=== PATIENT | female | born 1930 | race Caucasian/White ===

== ENCOUNTER 2016-07-20 06:49 | Inpatient (IN) | payer MEDICARE, BC ==
[2016-07-20] MEDS ORDERED: RX INFO: IV CONTRAST WAS GIVEN 1 EACH MISC MISCELLANE PRN (07:46)
--- NOTE | 2016-07-20 07:54 | ED ---
General Adult HPI - General Chief complaint: Altered Mental Status Stated complaint: altered mental status Time Seen by Provider: 07/20/16 07:00 Source: patient, family, RN notes reviewed Mode of arrival: ambulatory Limitations: no limitations - History of Present Illness Initial comments: This is an 85-year-old female who presents emergency Department with expressive aphasia. Family states that last spoke with her last night at 9:30 and she was fine however this morning when they spoke with her she was having difficulty finding the correct words to say it was not making any sense. Family also noted that she seemed to be having some difficulty walking she was a little off balance and it appeared that she was having some left-sided weakness. Patient denies headache however family states in the past she has had 2 occasions where she's had an intercranial bleed. Patient is unable to answer all questions because of expressive aphasia which difficult to get further history from her. According to family the patient was feeling fine yesterday and there was no complaints. There is no history of any recent upper respiratory infection no recent history of vomiting or diarrhea no recent history of any trauma. - Related Data Home Medications Medication Instructions Recorded Confirmed Pioglitazone HCl/Metformin HCl 1 tab PO DAILY 09/20/14 07/20/16 [Pioglitazone-Metformin 15-850] Simvastatin [Zocor] 20 mg PO HS 09/20/14 07/20/16 Bisoprolol Fumarate [Zebeta] 5 mg PO BID 08/13/15 07/20/16 Aspirin EC [Ecotrin Low Dose] 81 mg PO DAILY 07/20/16 07/20/16 Cholecalciferol [Vitamin D3] 1,000 unit PO DAILY 07/20/16 07/20/16 Cla 1 tab PO DAILY 07/20/16 07/20/16 Docusate [Colace] 100 mg PO DAILY PRN 07/20/16 07/20/16 Multivitamins, Thera [Multivitamin 1 tab PO DAILY 07/20/16 07/20/16 (formulary)] Allergies Allergy/AdvReac Type Severity Reaction Status Date / Time latex Allergy Rash/Hives Verified 07/20/16 07:52 Sulfa (Sulfonamide Allergy Unknown Verified 07/20/16 07:52 Antibiotics) Review of Systems ROS Statement: Those systems with pertinent positive or pertinent negative responses have been documented in the HPI. ROS Other: All systems not noted in ROS Statement are negative. Past Medical History Past Medical History: Coronary Artery Disease (CAD), Diabetes Mellitus, Hyperlipidemia, Hypertension, Myocardial Infarction ([place]) History of Any Multi-Drug Resistant Organisms: None Reported Past Surgical History: Hysterectomy Additional Past Surgical History / Comment(s): angioplasty Past Psychological History: No Psychological Hx Reported Smoking Status: Never smoker Past Alcohol Use History: None Reported Past Drug Use History: None Reported General Exam - General Exam Comments Initial Comments: GENERAL: Patient is well-developed and well-nourished. Patient is nontoxic and well- hydrated and is in no acute distress. ENT: Neck is soft and supple. No significant lymphadenopathy is noted. Oropharynx is clear. Moist mucous membranes. Neck has full range of motion without eliciting any pain. EYES: The sclera were anicteric and conjunctiva were pink and moist. Extraocular movements were intact and pupils were equal round and reactive to light. Eyelids were unremarkable. PULMONARY: Unlabored respirations. Good breath sounds bilaterally. No audible rales rhonchi or wheezing was noted. CARDIOVASCULAR: There is a regular rate and rhythm without any murmurs gallops or rubs. ABDOMEN: Soft and nontender with normal bowel sounds. No palpable organomegaly was noted. There is no palpable pulsatile mass. SKIN: Skin is clear with no lesions or rashes and otherwise unremarkable. NEUROLOGIC: Patient is alert and oriented 2 cranial nerves II through XII grossly intact motor and sensory grossly intact over the patient did have some left leg drift on examination. Patient cerebellar testing was normal bilaterally. Patient was having some expressive aphasia. Patient was able to speak clearly but was unable to find the correct words while speaking. MUSCULOSKELETAL: Patient's extremities showed no gross abnormalities. Patient has some left leg drift after a few seconds. LYMPHATICS: No significant lymphadenopathy is noted PSYCHIATRIC: Normal psychiatric evaluation. Normal interpersonal interactions appears functionally intact in deals appropriately with others. No signs of depression. Limitations: no limitations Course Vital Signs 07/20/16 07/20/16 07/20/16 06:51 07:10 07:17 Temperature 99.7 F H Pulse Rate 64 62 60 Respiratory 20 16 18 Rate Blood Pressure 142/60 172/70 156/70 O2 Sat by Pulse 94 L 94 L 94 L Oximetry 07/20/16 07/20/16 07/20/16 07:32 07:47 08:02 Temperature Pulse Rate 62 58 L 56 L Respiratory 18 Rate Blood Pressure 134/57 146/65 132/60 O2 Sat by Pulse 94 L 2 L 95 Oximetry 07/20/16 07/20/16 08:39 09:32 Temperature Pulse Rate 61 56 L Respiratory 16 16 Rate Blood Pressure 152/69 132/59 O2 Sat by Pulse 95 97 Oximetry Medical Decision Making - Medical Decision Making EKG shows a normal sinus rhythm at 62 bpm AR interval 172 QRS is 78 QT interval is 46 QTC is 412. EKG shows no ST segment elevation or depression. CT of the head and CTA of the head and neck showed no acute abnormalities. The neuro interventional is was contacted he wanted aspirin Plavix and Lipitor given. Patient will be admitted I spoke with Dr. Olson he agreed to admit the patient and they wrote admitting orders. - Lab Data Result diagrams: 07/20/16 07:09 07/20/16 07:09 Lab Results 07/20/16 07/20/16 07/20/16 Range/Units 07:09 07:09 07:09 WBC 8.8 (3.8-10.6) k/uL RBC 4.28 (3.80-5.40) m/uL Hgb 12.4 (11.4-16.0) gm/dL Hct 37.2 (34.0-46.0) % MCV 87.0 (80.0-100.0) fL MCH 29.1 (25.0-35.0) pg MCHC 33.4 (31.0-37.0) g/dL RDW 13.3 (11.5-15.5) % Plt Count 228 (150-450) k/uL Neutrophils % 83 % Lymphocytes % 13 % Monocytes % 3 % Eosinophils % 0 % Basophils % 0 % Neutrophils # 7.3 (1.3-7.7) k/uL Lymphocytes # 1.2 (1.0-4.8) k/uL Monocytes # 0.2 (0-1.0) k/uL Eosinophils # 0.0 (0-0.7) k/uL Basophils # 0.0 (0-0.2) k/uL PT (9.0-12.0) sec INR (<1.1) APTT (22.0-30.0) sec Sodium 137 (137-145) mmol/L Potassium 4.7 (3.5-5.1) mmol/L Chloride 100 (98-107) mmol/L Carbon Dioxide 25 (22-30) mmol/L Anion Gap 12 mmol/L BUN 26 H (7-17) mg/dL Creatinine 0.80 (0.52-1.04) mg/dL Est GFR (MDRD) Af Amer >60 (>60 ml/min/1.73 sqM) Est GFR (MDRD) Non-Af >60 (>60 ml/min/1.73 sqM) Glucose 201 H (74-99) mg/dL Calcium 9.1 (8.4-10.2) mg/dL Total Bilirubin 0.9 (0.2-1.3) mg/dL AST 18 (14-36) U/L ALT 20 (9-52) U/L Alkaline Phosphatase 58 (38-126) U/L Total Creatine Kinase 60 (30-135) U/L CK-MB (CK-2) 1.3 (0.0-2.4) ng/mL CK-MB (CK-2) Rel Index 2.2 Troponin I <0.012 (0.000-0.034) ng/mL Total Protein 7.0 (6.3-8.2) g/dL Albumin 4.1 (3.5-5.0) g/dL Urine Color Urine Appearance (Clear) Urine pH (5.0-8.0) Ur Specific [place] (1.001-1.035) Urine Protein (Negative) Urine Glucose (UA) (Negative) Urine Ketones (Negative) Urine Blood (Negative) Urine Nitrite (Negative) Urine Bilirubin (Negative) Urine Urobilinogen (<2.0) mg/dL Ur Leukocyte Esterase (Negative) 07/20/16 07/20/16 Range/Units 07:09 09:30 WBC (3.8-10.6) k/uL RBC (3.80-5.40) m/uL Hgb (11.4-16.0) gm/dL Hct (34.0-46.0) % MCV (80.0-100.0) fL MCH (25.0-35.0) pg MCHC (31.0-37.0) g/dL RDW (11.5-15.5) % Plt Count (150-450) k/uL Neutrophils % % Lymphocytes % % Monocytes % % Eosinophils % % Basophils % % Neutrophils # (1.3-7.7) k/uL Lymphocytes # (1.0-4.8) k/uL Monocytes # (0-1.0) k/uL Eosinophils # (0-0.7) k/uL Basophils # (0-0.2) k/uL PT 10.6 (9.0-12.0) sec INR 1.1 (<1.1) APTT 24.2 (22.0-30.0) sec Sodium (137-145) mmol/L Potassium (3.5-5.1) mmol/L Chloride (98-107) mmol/L Carbon Dioxide (22-30) mmol/L Anion Gap mmol/L BUN (7-17) mg/dL Creatinine (0.52-1.04) mg/dL Est GFR (MDRD) Af Amer (>60 ml/min/1.73 sqM) Est GFR (MDRD) Non-Af (>60 ml/min/1.73 sqM) Glucose (74-99) mg/dL Calcium (8.4-10.2) mg/dL Total Bilirubin (0.2-1.3) mg/dL AST (14-36) U/L ALT (9-52) U/L Alkaline Phosphatase (38-126) U/L Total Creatine Kinase (30-135) U/L CK-MB (CK-2) (0.0-2.4) ng/mL CK-MB (CK-2) Rel Index Troponin I (0.000-0.034) ng/mL Total Protein (6.3-8.2) g/dL Albumin (3.5-5.0) g/dL Urine Color Yellow Urine Appearance Clear (Clear) Urine pH 8.0 (5.0-8.0) Ur Specific [place] 1.041 H (1.001-1.035) Urine Protein Trace H (Negative) Urine Glucose (UA) Negative (Negative) Urine Ketones Negative (Negative) Urine Blood Negative (Negative) Urine Nitrite Negative (Negative) Urine Bilirubin Negative (Negative) Urine Urobilinogen <2.0 (<2.0) mg/dL Ur Leukocyte Esterase Negative (Negative) Disposition Clinical Impression: CVA (cerebral vascular accident) Disposition: ADMITTED IP TO THIS [facility] Referrals: Gregorio Rivera DO [Primary Care Provider] - 1-2 days Time of Disposition: 10:13
[2016-07-20 08:03] LABS: Basophils % (A) 0 %; CH 29.3; CHCM 33.8; Eosinophils % (A) 0 %; HCT 37.2 % (34.0-46.0); HDW 2.44; HGB 12.4 gm/dL (11.4-16.0); Luc # (Auto) 0.08; Luc % (Auto) 1; Lymphocytes # (A) 1.2 k/uL (1.0-4.8); Lymphocytes % (A) 13 %; MCH 29.1 pg (25.0-35.0); MCHC 33.4 g/dL (31.0-37.0); Mean Platelet Volume 7.4; Monocytes # (A) 0.2 k/uL (0-1.0); Monocytes % (A) 3 %; Neutrophils # (A) 7.3 k/uL (1.3-7.7); Neutrophils % (A) 83 %; RBC 4.28 m/uL (3.80-5.40); RDW 13.3 % (11.5-15.5); WBC 8.8 k/uL (3.8-10.6); WBC (Perox) 9.26
[2016-07-20 08:08] LABS: INR 1.1 (<1.1); Partial Thromboplastin Time 24.2 sec (22.0-30.0); Prothrombin Time 10.6 sec (9.0-12.0)
[2016-07-20 08:13] LABS: ALT 20 U/L (9-52); AST 18 U/L (14-36); Alkaline Phosphatase 58 U/L (38-126); Anion Gap 12 mmol/L; Blood Urea Nitrogen 26 mg/dL (7-17); Calcium 9.1 mg/dL (8.4-10.2); Carbon Dioxide 25 mmol/L (22-30); Chloride 100 mmol/L (98-107); Glucose 201 mg/dL (74-99); Non-African American GFR(MDRD) >60 (>60 ml/min/1.73 sqM); Potassium 4.7 mmol/L (3.5-5.1); Sodium 137 mmol/L (137-145); Total Bilirubin 0.9 mg/dL (0.2-1.3)
--- NOTE | 2016-07-20 08:26 | CT ---
EXAMINATION TYPE: CT brain wo con for TPA DATE OF EXAM: 07/20/2016 8:23 AM COMPARISON: 08/13/2015 HISTORY: Altered mental status CT DLP: 999.8 mGycm Automated exposure control for dose reduction was used. FINDINGS: There is no acute intracranial hemorrhage, mass effect, or midline shift identified. Moderate degener ative change noted. Periventricular low attenuation compatible with remote microvascular ischemia. Ca lvarium intact.. IMPRESSION: No acute intracranial hemorrhage, mass effect, or midline shift is seen.
[2016-07-20 08:32] LABS: Creatine Kinase 60 U/L (30-135)
[2016-07-20 08:44] LABS: Creatine Kinase MB 1.3 ng/mL (0.0-2.4); Troponin I <0.012 ng/mL (0.000-0.034)
--- NOTE | 2016-07-20 09:12 | XR ---
EXAMINATION TYPE: XR chest 2V DATE OF EXAM: 07/20/2016 8:54 AM COMPARISON: NONE TECHNIQUE: PA and lateral views submitted. HISTORY: Chest pain FINDINGS: The lungs are clear and there is no pneumothorax, pleural effusion, or focal pneumonia. Heart is en larged. Hypertrophic and degenerative change of the spine. No overt failure. Arthropathy of the shoul ders. IMPRESSION: 1. No acute process.
--- NOTE | 2016-07-20 09:32 | CT ---
EXAMINATION TYPE: CT angio head neck DATE OF EXAM: 07/20/2016 9:06 AM COMPARISON: NONE HISTORY: AMS CT DLP: 224.3 mGycm Automated exposure control for dose reduction was used. TECHNIQUE: Performed with IV Contrast, patient injected with 65 mL of Omnipaque 350. . FINDINGS: Hypertrophic and degenerative change of the spine noted. Severe degenerative disc disease involving t he mid and lower cervical spine. Facet arthropathy There is atherosclerotic change involving the aortic arch and origin of the great vessels. Mild ather osclerotic changes involving the common carotid artery on the left. Moderate changes involving both c arotid arteries greater on the right with suggestion of possible significant stenosis involving the p roximal right ICA. Intracranial vasculature demonstrates no sizable aneurysm vertebrobasilar and cerebral arteries appea r to be patent. Degenerative change and nonspecific white matter changes noted. IMPRESSION: 1. There appears to be significant atherosclerotic change and probable stenosis involving the proxima l ICA bilaterally greater on the right. 2. No sizable aneurysm or vascular malformation.
[2016-07-20 10:02] LABS: Appearance,Urine Clear (Clear); Bilirubin,Urine Negative (Negative); Glucose,Urine (UA) Negative (Negative); Ketones,Urine Negative (Negative); Leukocyte Esterase,Urine Negative (Negative); Nitrite,Urine Negative (Negative); Protein,Urine Trace (Negative); Specific Gravity,Urine 1.041 (1.001-1.035); UA Billing (MACRO vs. MICRO) CHEM; Urobilinogen,Urine <2.0 mg/dL (<2.0)
[2016-07-20] MEDS ORDERED: SODIUM CHLORIDE 0.9% 500 ML IV ONE (10:03)
[2016-07-20] MEDS ORDERED: ASPIRIN 325 MG TAB PO STA (10:11)
[2016-07-20] MEDS ORDERED: CLOPIDOGREL 75 MG TAB PO STA (10:12)
[2016-07-20] MEDS ORDERED: ATORVASTATIN 80 MG TAB PO STA (10:12)
--- NOTE | 2016-07-20 12:26 | US ---
EXAMINATION TYPE: US carotid duplex BILAT DATE OF EXAM: 07/20/2016 12:07 PM COMPARISON: CT angio today CLINICAL HISTORY: Stenosis. EC patient with headache last night. EXAM MEASUREMENTS: RIGHT: Peak Systolic Velocity (PSV) cm/sec ----- Right CCA: 36.6 ----- Right ICA: 174.3 ----- Right ECA: 122.6 ICA/CCA ratio: 4.8 RIGHT: End Diastole cm/sec ----- Right CCA: 0.0 ----- Right ICA: 35.1 ----- Right ECA: 0.0 LEFT: Peak Systolic Velocity (PSV) cm/sec ----- Left CCA: 47.0 ----- Left ICA: 88.6 ----- Left ECA: 98.2 ICA/CCA ratio: 1.9 LEFT: End Diastole cm/sec ----- Left CCA: 6.9 ----- Left ICA: 17.3 ----- Left ECA: 7.6 VERTEBRALS (direction of flow): Right Vertebral: Antegrade Left Vertebral: Antegrade Irregular and severe calcification noted at bilateral carotid bifurcation with abnormally elevated PS V in Right ICA. IMPRESSION: There is antegrade flow in the vertebral arteries. There is calcified plaque with estim ated stenosis of 70% in the right internal carotid artery. There is a 0-50% stenosis in the left internal carotid artery. Criteria for Assigning % of Stenosis / Diameter reduction (Estimation based on the indirect measurements of the internal carotid artery velocities (ICA PSV). 1. Normal (no stenosis)=ICA PSV < 125 cm/s: ratio < 2.0: ICA EDV<40 cm/s. 2. Less than 50% stenosis=ICA PSV < 125 cm/s: ratio < 2.0: ICA EDV<40 cm/s. 3. 50 to 69% stenosis=ICA PSV of 125 to 230 cm/s: ration 2.0 ? 4.0: ICA EDV 40-100 cm/s. 4. Greater than 70% stenosis to near occlusion= ICA PSV > 230 cm/s: ratio > 4.0: ICA EDV > 100 cm/s. 5. Near occlusion= ICA PSV velocities may be low or undetectable: variable ratio and ICA EDV. 6. Total occlusion=unable to detect flow.
[2016-07-20 12:46] LABS: Glucose,Whole Blood 206 mg/dL (75-99)
[2016-07-20] MEDS ORDERED: DOCUSATE 100 MG CAP PO PRN (14:07)
[2016-07-20] MEDS ORDERED: ACETAMINOPHEN TAB 500 MG TAB PO PRN (14:09)
[2016-07-20] MEDS ORDERED: ALPRAZolam 0.25 MG TAB PO PRN (14:09)
[2016-07-20 14:26] VITALS: BMI 27.4
--- NOTE | 2016-07-20 14:38 | P.CONS ---
History of Present Illness - Reason for Consult Consult date: 07/20/16 TIA - History of Present Illness This is a pleasant 85-year-old female being evaluated by the neurology service for TIA symptoms. She was brought to the [facility] emergency room by her family after they noticed some episodes of expressive aphasia. She was also seen to be a little bit off balance while walking. Her symptoms have resolved except for possibly being a little bit of off balance when she first stands. She gives a significant history of valvular heart disease for which she was offered surgery, but declined. She has known carotid stenosis which is been followed by her town administrator and primary care physician. A CT in the emergency room showed no acute intracranial abnormalities. There was evidence of remote microvascular ischemia. There was no hemorrhage or mass effect. CTA of the head and neck was done, as was a carotid Doppler. Her carotid Doppler showed severe calcifications of bilateral carotid bifurcations abnormally elevated PSV in the right internal carotid artery. Her CTA showed mild atherosclerotic changes in the common carotid artery on the left moderate changes involving both carotid arteries greater on the right with significant stenosis in the proximal right internal carotid artery. Again there was no appreciable aneurysm. Intracranial vasculature was patent. Laboratory evaluation was relatively normal. Time my exam she is resting comfortably in bed in no acute distress. Review of Systems All systems: negative Constitutional: Reports as per HPI Past Medical History Past Medical History: Coronary Artery Disease (CAD), Diabetes Mellitus, Hyperlipidemia, Hypertension, Myocardial Infarction ([place]) History of Any Multi-Drug Resistant Organisms: None Reported Past Surgical History: Hysterectomy Additional Past Surgical History / Comment(s): angioplasty Past Psychological History: No Psychological Hx Reported Smoking Status: Never smoker Past Alcohol Use History: None Reported Past Drug Use History: None Reported Medications and Allergies Home Medications Medication Instructions Recorded Confirmed Type Pioglitazone HCl/Metformin HCl 1 tab PO DAILY 09/20/14 07/20/16 History [Pioglitazone-Metformin 15-] Simvastatin [Zocor] 20 mg PO HS 09/20/14 07/20/16 History Bisoprolol Fumarate [Zebeta] 5 mg PO BID 08/13/15 07/20/16 History Aspirin EC [Ecotrin Low Dose] 81 mg PO DAILY 07/20/16 07/20/16 History Cholecalciferol [Vitamin D3] 1,000 unit PO DAILY 07/20/16 07/20/16 History Cla 1 tab PO DAILY 07/20/16 07/20/16 History Docusate [Colace] 100 mg PO DAILY PRN 07/20/16 07/20/16 History Multivitamins, Thera [Multivitamin 1 tab PO DAILY 07/20/16 07/20/16 History (formulary)] Allergies Allergy/AdvReac Type Severity Reaction Status Date / Time latex Allergy Rash/Hives Verified 07/20/16 07:52 Sulfa (Sulfonamide Allergy Unknown Verified 07/20/16 07:52 Antibiotics) Physical Exam Vitals: Vital Signs Temp Pulse Resp BP Pulse Ox 07/20/16 13:33 98.3 F 57 L 16 133/63 97 07/20/16 12:32 60 16 137/63 07/20/16 11:32 58 L 16 136/63 99 07/20/16 10:32 92 16 131/91 100 - Constitutional General appearance: cooperative, no acute distress - EENT Eyes: no abnormal pupil, EOMI, PERRLA, no ptosis ENT: hard of hearing - Neck Neck: normal ROM, no rigidity - Respiratory Respiratory: negative: prolonged expiration, prolonged inspiration - Cardiovascular Rhythm: regular - Gastrointestinal General gastrointestinal: no distended, no tenderness - Neurologic Patient's alert awake and oriented 3. Speech and language are normal. There is no facial asymmetry. Strength is full in bilateral upper lower extremities. There is no sensory deficit of the face or upper lower extremities. No tremors or seizure-like activities are seen. Cranial nerves II through XII are intact globally except for chronic hearing difficulty. There is no pronator drift. There is no dysmetria. Results CBC & Chem 7: 07/20/16 07:09 07/20/16 07:09 Assessment and Plan (1) TIA (transient ischemic attack) Status: Acute (2) Carotid stenosis Status: Chronic (3) Abnormality of heart valve Status: Chronic (4) Hypertension Status: Chronic (5) Diabetes Status: Chronic (6) Hyperlipidemia Status: Chronic Plan: It seems that she had suffered a transient ischemic attack. I will increase her aspirin to 325 mg. She will continue Zocor. I will order a fasting lipid panel, serum homocysteine level, and an EEG. Her symptoms of unsteadiness persist but she says this is a chronic problem and happens if she is sitting for prolonged period of time and gets up to walk. She thinks it mostly has to do with her musculoskeletal complaints rather than true dizziness or unsteadiness. This will be evaluated by physical and occupational therapy. We will consult speech therapy. There is already in order for an MRI of the brain. Otherwise her symptoms were likely due to her significant carotid stenosis. Recommend cardiovascular consultation. Continue neurological checks. We'll continue to follow and make recommendations based on the above studies. I have reviewed the history and physical on the above patient. I have reviewed the above note, and agree.
[2016-07-20 15:04] LABS: Cholesterol 146 mg/dL (<200); HDL Cholesterol 37 mg/dL (40-60); Triglycerides 112 mg/dL (<150)
[2016-07-20 17:13] LABS: Glucose,Whole Blood 152 mg/dL (75-99)
[2016-07-20 20:51] LABS: Glucose,Whole Blood 158 mg/dL (75-99)
[2016-07-20] MEDS: BISOPROLOL 5 MG TAB PO SCH (21:03)
[2016-07-20] MEDS: HEPARIN SODIUM,PORCINE 5,000 UNIT/ML 1 ML VIAL SQ SCH (21:04)
[2016-07-21 06:13] LABS: Glucose,Whole Blood 156 mg/dL (75-99)
[2016-07-21] MEDS: metFORMIN 850 MG TAB PO SCH (06:43)
[2016-07-21] MEDS: PANTOPRAZOLE 40 MG TABLET PO SCH (06:43)
[2016-07-21] MEDS: PIOGLITAZONE 15 MG TAB PO SCH (06:43)
[2016-07-21 06:50] LABS: Basophils % (A) 1 %; CH 29.4; Eosinophils # (A) 0.1 k/uL (0-0.7); Eosinophils % (A) 1 %; HCT 37.2 % (34.0-46.0); HDW 2.41; Luc # (Auto) 0.17; Luc % (Auto) 2; Lymphocytes # (A) 1.8 k/uL (1.0-4.8); Lymphocytes % (A) 27 %; MCH 28.9 pg (25.0-35.0); MCHC 32.3 g/dL (31.0-37.0); MCV 89.5 fL (80.0-100.0); Mean Platelet Volume 7.3; Monocytes # (A) 0.5 k/uL (0-1.0); Monocytes % (A) 8 %; Neutrophils # (A) 4.2 k/uL (1.3-7.7); Neutrophils % (A) 62 %; RBC 4.16 m/uL (3.80-5.40); RDW 13.5 % (11.5-15.5); WBC 6.8 k/uL (3.8-10.6); WBC (Perox) 7.06
[2016-07-21 07:04] LABS: Anion Gap 7 mmol/L; Blood Urea Nitrogen 18 mg/dL (7-17); Carbon Dioxide 29 mmol/L (22-30); Chloride 103 mmol/L (98-107); Cholesterol 143 mg/dL (<200); Glucose 159 mg/dL (74-99); HDL Cholesterol 32 mg/dL (40-60); Non-African American GFR(MDRD) >60 (>60 ml/min/1.73 sqM); Potassium 4.8 mmol/L (3.5-5.1); Sodium 139 mmol/L (137-145); Triglycerides 184 mg/dL (<150)
--- NOTE | 2016-07-21 07:51 | HP ---
DATE OF ADMISSION: I am covering for Dr. Rivera. The chief complaints are weakness of the left side of the body and in speaking. HISTORY OF PRESENT ILLNESS: This is an 85-year-old woman with a past history of CAD, history of diabetes, hypertension, hyperlipidemia, history of myocardial infarction, history of hysterectomy, angioplasty being followed by Dr. Gregorio Rivera in the outpatient setting. Apparently is not feeling well today. Apparently the daughters were trying to take her to [place] to the [facility] for the weekend, but the patient is complaining of weakness of the left side of the body. Patient was dragging the left foot and the patient has some difficulty in speaking also which lasted for a few minutes and because of multiple complaints, patient was taken to [facility], admitted for further evaluation and treatment. Patient had a previous history of intestinal bleeding, but the initial CAT scan did not show acute abnormality. Patient previously had carotid stenosis which is being monitored in the outpatient setting. A repeat carotid ultrasound was done today which showed 50% to 70% stenosis of the right internal carotid and 0% to 50% in the left internal carotid artery and a CT angio was also done, which showed atherosclerotic changes. No sizable aneurysm was noted. There is no history of any fever, chills, or rigors. No history of headache, loss of consciousness or seizures. PAST MEDICAL HISTORY: History of diabetes, hypertension, hyperlipidemia, myocardial infarction, CAD, hysterectomy, angioplasty. Medications are: 1. Zocor 20 mg q.h.s. 2. Pioglitazone/Metformin 1 tablet p.o. daily. 3. Multivitamin 1 p.o. daily. 4. Colace 100 mg daily p.r.n. 5. Vitamin D3 one thousand daily. 6. Zebeta 5 mg p.o. b.i.d. 7. Ecotrin 81 mg. Allergies are LATEX, SULFA. FAMILY HISTORY: No history of heart disease or strokes in the family. SOCIAL HISTORY: No history of smoking. No history of alcohol intake. REVIEW OF SYSTEMS: ENT: Diminished hearing, diminished vision. CARDIOVASCULAR: No angina or palpitations. RESPIRATORY: No cough. GI: No nausea. : No dysuria. NERVOUS SYSTEM: No numbness or weakness. ALLERGY/IMMUNOLOGY: No asthma or hayfever. MUSCULOSKELETAL: As mentioned earlier. HEMATOLOGY/ONCOLOGY: No history of anemia. ENDOCRINE: No history of hypothyroidism, history of diabetes mellitus. CONSTITUTIONAL: As mentioned earlier. DERMATOLOGY: Negative. RHEUMATOLOGY: Negative. PSYCHIATRY: As mentioned earlier. PHYSICAL EXAM: Patient is alert and oriented x2. Pulse is 57, blood pressure 130/63, respirations 16, temperature is 98.3, pulse ox is 97% on 2 L. HEENT: Conjunctivae normal, oral mucosa moist. NECK: No jugular venous distention. No carotid bruit. No lymph node enlargement, no thyroid enlargement. CARDIOVASCULAR SYSTEM: S1, S2, muffled. No S3, no S4. RESPIRATORY: Breath sounds diminished at the bases. No rhonchi, no crackles. Abdomen is soft, nontender. No mas palpable. LEGS: No edema. No swelling. NERVOUS SYSTEM: Higher function as mentioned earlier. CRANIAL NERVES: Grossly intact. Otherwise moves all 4 limbs, minimal weakness left side, minimal incoordination on the left arm also present. Otherwise, No sensory abnormalities, reflex is normal. SKIN: No ulcer, rash or bleeding. LYMPHATICS: No lymph node enlargement in the neck, axillae or groin. Labs are CBC within normal limits. Glucose 206, BUN is 26, UA noted. ASSESSMENT: 1. Weakness of the left side of the body, and as well as dysphasia, possible acute transient ischemic attack involving the right hemisphere. 3. Diabetes mellitus type 2. 4. Hypertension, essential. 5. History of hyperlipidemia. 6. History of myocardial infarction. 7. History of coronary artery. 8. History of hysterectomy. 9. History of angioplasty. 10. Previous history of intestinal bleed, apparently. RECOMMENDATION: In this 85-year-old woman who presented with multiple complex medical issues, will monitor the patient closely. Continue with the current medications, continue with the antiplatelet agents, otherwise Neurology evaluation, telemetry, complete neurovascular work-up, a 2-D echo is pending at this time, MRI has been ordered. Guarded prognosis because of multiple complex medical issues. Further recommendations to follow. Discussed with the family, but daughter . A copy of this will be forwarded to Dr. Rivera who is the primary physician. MIGUEL
[2016-07-21] MEDS: BISOPROLOL 5 MG TAB PO SCH ×2 (08:47→21:14)
[2016-07-21] MEDS: MULTIVITAMINS, THERA 1 EACH TAB PO SCH (08:47)
[2016-07-21] MEDS: ATORVASTATIN 80 MG TAB PO SCH (08:47)
[2016-07-21] MEDS: CHOLECALCIFEROL 1,000 UNIT TAB PO SCH (08:47)
[2016-07-21] MEDS: CLOPIDOGREL 75 MG TAB PO SCH (08:47)
[2016-07-21] MEDS: HEPARIN SODIUM,PORCINE 5,000 UNIT/ML 1 ML VIAL SQ SCH ×2 (08:48→21:14)
[2016-07-21] MEDS: ASPIRIN 325 MG TAB PO SCH (08:48)
--- NOTE | 2016-07-21 11:17 | ECHOF ---
Referral Reason:Stroke MEASUREMENTS -------- HEIGHT: 167.6 cm WEIGHT: 80.3 kg BP: 140/68 IVSd: 1.5 cm (0.6 - 1.1) LVIDd: 3.8 cm (3.9 - 5.3) LVPWd: 1.6 cm (0.6 - 1.1) IVSs: 2.6 cm LVIDs: 0.8 cm LVPWs: 2.5 cm LAESV Index (A-L): 26.96 ml/m Ao Diam: 3.5 cm (2.0 - 3.7) AV Cusp: 0.7 cm (1.5 - 2.6) LA Diam: 3.5 cm (2.7 - 3.8) MV E Moose: 1.87 m/s MV DecT: 635 ms MV A Moose: 1.21 m/s MV E/A Ratio: 1.54 AV maxP.09 mmHg AV meanP.14 mmHg RAP: 5.00 mmHg RVSP: 29.68 mmHg FINDINGS -------- Sinus rhythm. This was a technically adequate study. There is moderate concentric left ventricular hypertrophy. Overall left ventricular systolic function is normal with, an EF between 65 - 70 %. The right ventricle is normal in size and function. Normal LA size by volume 22+/-6 ml/m2. The right atrium is normal in size. There is mild aortic regurgitation. Moderate to severe aortic stenosis with peak/mean pressure gradient of 82.09mmHg / 46.14mmHg, the aortic valve area by continuity equation is 1.2cm. There is trace to mild mitral regurgitation. The peak and mean MV gradients are 22.08mmHg 5.96mmHg as measured by doppler. Moderate mitral stenosis. Densely calcified chordae. Trace tricuspid regurgitation present. There is no evidence of pulmonary hypertension. The right ventricular systolic pressure, as measured by Doppler, is 29.68mmHg. The pulmonic valve was not well visualized. The aortic root size is normal. There is no pericardial effusion. CONCLUSIONS -------- 1. Sinus rhythm. 2. Densely calcified chordae. 3. Trace tricuspid regurgitation present. 4. There is no evidence of pulmonary hypertension. 5. The right ventricular systolic pressure, as measured by Doppler, is 29.68mmHg. 6. The pulmonic valve was not well visualized. 7. The aortic root size is normal. 8. There is no pericardial effusion. 9. There is moderate concentric left ventricular hypertrophy. 10. Overall left ventricular systolic function is normal with, an EF between 65 - 70 %. 11. Normal LA size by volume 22+/-6 ml/m2. 12. There is mild aortic regurgitation. 13. Moderate to severe aortic stenosis with peak/mean pressure gradient of 82.09mmHg / 46.14mmHg, the aortic valve area by continuity equation is 1.2cm. 14. There is trace to mild mitral regurgitation. 15. The peak and mean MV gradients are 22.08mmHg 5.96mmHg as measured by doppler. 16. Moderate mitral stenosis. [employer] FEEDING MACHINE OPERATOR: Marin Ford RDCS
[2016-07-21 12:03] LABS: Glucose,Whole Blood 162 mg/dL (75-99)
--- NOTE | 2016-07-21 15:39 | P.PN ---
Subjective Principal diagnosis: Transient ischemic attack Patient is an 85-year-old female with medical history significant for coronary artery disease, diabetes, hypertension, hyperlipidemia, myocardial infarction, hysterectomy, carotid stenosis, GI bleed, and angioplasty. Patient admitted through the emergency department with complaints of left-sided weakness and dysarthria. Initial CT of the head with no acute findings. Ultrasound of carotids with 50-70% stenosis of the right internal carotid and 0- 50% stenosis in the left internal carotid artery. Echocardiogram with Doppler with preserved LV function with an EF between 65-70%; moderate to severe aortic stenosis; and moderate mitral stenosis. Patient was admitted to the selective care unit with consult to neurology. Patient is awaiting MRI of brain. On examination, patient is feeling better. Denies chills, fevers, nausea, headache , visual changes, dysphagia, shortness of breath, chest pain, abdominal pain, numbness or tingling, or weakness of extremities. Patient has been up ambulating without difficulty. Patient is tolerating diet. Afebrile. Objective - Vital Signs Vital signs: Vital Signs Temp 96 F L 07/21/16 08:00 Pulse 52 L 07/21/16 12:00 Resp 18 07/21/16 08:00 BP 128/65 07/21/16 08:00 Pulse Ox 96 07/21/16 08:00 Intake & Output 07/20/16 07/21/16 07/21/16 18:59 06:59 18:59 Intake Total 180 360 417 Output Total 450 Balance 180 360 -33 Weight 77.111 kg 80.7 kg Intake: Oral 180 360 417 Output: Urine 450 Other: Voiding Method Incontinent Incontinent # Voids 1 1 2 - Exam GENERAL: Pt awake and alert, well-appearing, well-nourished, and in no acute distress. HEAD: Atraumatic, normocephalic. EYES: Pupils equal, round, and reactive to light, extraocular movements intact, sclera anicteric, conjunctiva are normal. ENT: Moist mucous membranes. NECK:Supple without lymphadenopathy or JVD. LUNGS: Breath sounds clear to auscultation bilaterally. No wheezes, rales, or rhonchi. HEART: Heart S1, S2, no S3 or S4. Regular rate and rhythm. Systolic murmur. ABDOMEN: Soft, nontender, nondistended, normoactive bowel sounds. No guarding, no rebound. No masses or organomegaly appreciated. EXTREMITIES: 2+ peripheral pulses. No edema. No calf tenderness. NEUROLOGICAL: Pt oriented x 3. Cranial nerves II through XII grossly intact. Strength and sensation grossly intact. PSYCH: Normal mood, normal affect. SKIN: Warm, dry, intact. Normal turgor. No rashes or lesions. - Labs CBC & Chem 7: 07/21/16 06:10 07/21/16 06:10 Labs: Abnormal Lab Results - Last 24 Hours (Table) 07/20/16 07/20/16 07/21/16 Range/Units 17:08 20:49 06:10 BUN 18 H (7-17) mg/dL Glucose 159 H (74-99) mg/dL POC Glucose (mg/dL) 152 H 158 H (75-99) mg/dL Triglycerides 184 H (<150) mg/dL HDL Cholesterol 32 L (40-60) mg/dL 07/21/16 07/21/16 Range/Units 06:12 11:52 BUN (7-17) mg/dL Glucose (74-99) mg/dL POC Glucose (mg/dL) 156 H 162 H (75-99) mg/dL Triglycerides (<150) mg/dL HDL Cholesterol (40-60) mg/dL Assessment and Plan Plan: Impression: 1. Transient ischemic attack involving right hemisphere. 2. Moderate to severe aortic stenosis and moderate mitral stenosis. 3. Diabetes mellitus type 2. 4. Hypertension. 5. Dyslipidemia. 6. Coronary artery disease with angioplasty. 7. History of myocardial infarction. 8. History of GI bleed. Plan: Continue to monitor patient. Continue current medications. Continue to follow with neurology. Await results of MRI. We'll consult cardiovascular surgeon. The above impression and plan have been discussed and directed by Dr. Rivera. Beena PATTON acting as scribe for Dr. Rivera.
--- NOTE | 2016-07-21 16:42 | P.GSCN ---
<Linda Hobbs - Last Filed: 07/21/16 16:23> History of Present Illness Consult date: 07/21/16 Reason for Consult: Carotid stenosis. Requesting physician: Beena Lozano History of present illness: This 85 year old female with a past medical history of coronary artery disease, myocardial infarction, diabetes, hypertension, hyperlipidemia, and known heart murmur presented to the emergency room with expressive aphasia and a feeling of being off balanced. These symptoms are currently resolving. She denied chest pain, shortness of breath, nausea, vomitting, or diaphoresis. Her work up included a CT of the brain which demonstrated no acute process; a CTA of the head and neck which demonstrated bilateral internal carotid artery stenosis, right greater than left; a chest xray with no acute process; carotid dopplers which demonstrated right internal carotid stenosis of 70% and left internal carotid of 0-50%; and an echocardiogram with an ejection fraction 65-70%, mild aortic insufficiency, moderate to severe aortic stenosis, mild mitral regurgitation, and moderate mitral stenosis. Per the patient and her family, they were aware of the carotid stenosis and were expecting to hear that she may need surgery. They were also aware that the patient had a murmur as she saw a cardiothoracic surgeon at [place] approximately 6 months ago who stated she needed her aortic and mitral valve replaced. The patient declined cardiac surgery. The patient was admitted for stroke work-up with neurology consulted. Dr. Okeefe was consulted regarding carotid stenosis. Review of Systems A 14 point review of systems was completed and was negative except as noted. - EENT Eyes: bilateral loss of vision (wears glasses) Ears: bilateral: decreased hearing - Cardiovascular Reports as per HPI - Respiratory Reports as per HPI - Neurological Reports as per HPI Past Medical History Past Medical History: Coronary Artery Disease (CAD), Diabetes Mellitus, Hyperlipidemia, Hypertension, Myocardial Infarction ([place]) Additional Past Medical History / Comment(s): Prolapsed mitral valve, "leaky" aortic valve Last Myocardial Infarction Date:: 2006? History of Any Multi-Drug Resistant Organisms: None Reported Past Surgical History: Hysterectomy Additional Past Surgical History / Comment(s): angioplasty Past Anesthesia/Blood Transfusion Reactions: No Reported Reaction Past Psychological History: No Psychological Hx Reported Smoking Status: Never smoker Past Alcohol Use History: None Reported Past Drug Use History: None Reported Medications and Allergies Home Medications Medication Instructions Recorded Confirmed Type Pioglitazone HCl/Metformin HCl 1 tab PO DAILY 09/20/14 07/20/16 History [Pioglitazone-Metformin 15-] Simvastatin [Zocor] 20 mg PO HS 09/20/14 07/20/16 History Bisoprolol Fumarate [Zebeta] 5 mg PO BID 08/13/15 07/20/16 History Aspirin EC [Ecotrin Low Dose] 81 mg PO DAILY 07/20/16 07/20/16 History Cholecalciferol [Vitamin D3] 1,000 unit PO DAILY 07/20/16 07/20/16 History Cla 1 tab PO DAILY 07/20/16 07/20/16 History Docusate [Colace] 100 mg PO DAILY PRN 07/20/16 07/20/16 History Multivitamins, Thera [Multivitamin 1 tab PO DAILY 07/20/16 07/20/16 History (formulary)] Allergies Allergy/AdvReac Type Severity Reaction Status Date / Time latex Allergy Rash/Hives Verified 07/20/16 07:52 Sulfa (Sulfonamide Allergy Unknown Verified 07/20/16 07:52 Antibiotics) Surgical - Exam Vital Signs Temp Pulse Resp BP Pulse Ox 99.7 F H 64 20 142/60 94 L 07/20/16 06:51 07/20/16 06:51 07/20/16 06:51 07/20/16 06:51 07/20/16 06:51 - General well developed, well nourished, no distress, no pain - Eyes PERRL, normal ocular movement - ENT decreased hearing - Neck no masses, trachea midline - Respiratory normal expansion, normal respiratory effort, clear to auscultation - Cardiovascular Rhythm: regular Heart Sounds: normal: S1, S2 Abnormal Heart Sounds: systolic murmur - Abdomen Abdomen: soft, non tender, bowel sounds - Genitourinary Deferred. - Rectum Deferred. - Integumentary no rash, no growths - Neurologic normal coordination, normal sensation - Psychiatric Speech is slow but appropriate. oriented to time, oriented to person, oriented to place, memory intact Results - Labs 07/21/16 06:10 07/21/16 06:10 Abnormal Lab Results - Last 24 Hours (Table) 07/20/16 07/20/16 07/21/16 Range/Units 17:08 20:49 06:10 BUN 18 H (7-17) mg/dL Glucose 159 H (74-99) mg/dL POC Glucose (mg/dL) 152 H 158 H (75-99) mg/dL Triglycerides 184 H (<150) mg/dL HDL Cholesterol 32 L (40-60) mg/dL 07/21/16 07/21/16 Range/Units 06:12 11:52 BUN (7-17) mg/dL Glucose (74-99) mg/dL POC Glucose (mg/dL) 156 H 162 H (75-99) mg/dL Triglycerides (<150) mg/dL HDL Cholesterol (40-60) mg/dL Diabetes panel 07/21/16 Range/Units 06:10 Sodium 139 (137-145) mmol/L Potassium 4.8 (3.5-5.1) mmol/L Chloride 103 (98-107) mmol/L Carbon Dioxide 29 (22-30) mmol/L BUN 18 H (7-17) mg/dL Creatinine 0.89 (0.52-1.04) mg/dL Glucose 159 H (74-99) mg/dL Calcium 9.0 (8.4-10.2) mg/dL Triglycerides 184 H (<150) mg/dL HDL Cholesterol 32 L (40-60) mg/dL Calcium panel 07/21/16 Range/Units 06:10 Calcium 9.0 (8.4-10.2) mg/dL Pituitary panel 07/21/16 Range/Units 06:10 Sodium 139 (137-145) mmol/L Potassium 4.8 (3.5-5.1) mmol/L Chloride 103 (98-107) mmol/L Carbon Dioxide 29 (22-30) mmol/L BUN 18 H (7-17) mg/dL Creatinine 0.89 (0.52-1.04) mg/dL Glucose 159 H (74-99) mg/dL Calcium 9.0 (8.4-10.2) mg/dL Adrenal panel 07/21/16 Range/Units 06:10 Sodium 139 (137-145) mmol/L Potassium 4.8 (3.5-5.1) mmol/L Chloride 103 (98-107) mmol/L Carbon Dioxide 29 (22-30) mmol/L BUN 18 H (7-17) mg/dL Creatinine 0.89 (0.52-1.04) mg/dL Glucose 159 H (74-99) mg/dL Calcium 9.0 (8.4-10.2) mg/dL - Imaging Chest x-ray: image reviewed Additional studies: CT of brain, CTA of head/neck, TTE reviewed. Assessment and Plan (1) Aortic stenosis Status: Acute (2) Mitral stenosis Status: Acute (3) CVA (cerebral vascular accident) Status: Acute (4) Carotid stenosis Status: Chronic (5) Diabetes Status: Chronic (6) Hyperlipidemia Status: Chronic (7) Hypertension Status: Chronic Plan: The patient was seen and examined. Daughters at bedside. Chart/diagnostics reviewed. Risk factor modification discussed with patient/daughters. All questions answered to the best of my ability. The patient's symptoms have mostly resolved according to her. Will discuss the case with Dr. Okeefe for a determination on treatment of carotid stenosis. Thank you for the consult. We look forward to working with you in the care of your patient. Time with Patient: Greater than 30 <Koko Okeefe - Last Filed: 07/22/16 09:48> Surgical - Exam Osteopathic Statement: *. No significant issues noted on an osteopathic structural exam other than those noted in the History and Physical/Consult. Vital Signs Temp Pulse Resp BP Pulse Ox 99.7 F H 64 20 142/60 94 L 07/20/16 06:51 07/20/16 06:51 07/20/16 06:51 07/20/16 06:51 07/20/16 06:51 Results - Labs 07/21/16 06:10 07/21/16 06:10 Abnormal Lab Results - Last 24 Hours (Table) 07/21/16 07/22/16 Range/Units 11:52 06:30 POC Glucose (mg/dL) 162 H 154 H (75-99) mg/dL - Imaging Additional studies: Carotid duplex suggests 16-49% left ICA stenosis and 50-69% right ICA stenosis. CT angios suggests moderate but not specifically critical carotid stenosis. MRI does not show any significant interval changes. Assessment and Plan Plan: EXTENSION COURSE COORDINATOR notes reviewed and accepted. Impression: Moderate but noncritical carotid stenosis. Symptoms are somewhat nonspecific and not focal enough to correlate directly with carotid disease. Recommendation: This patient is 85 years old. She has already refused valvular heart surgery. She wishes a rather conservative approach. I would recommend continued medical therapy with antiplatelet agents. We will watch her closely. If she develops truly focal symptoms, would consider intervention at that time , which would probably consist of a carotid stenting. Tentatively we will see her in the office in a couple of weeks.
--- NOTE | 2016-07-21 16:50 | P.PN ---
Subjective Principal diagnosis: TIA This is a pleasant 85-year-old female continue be evaluated by the neurology service. Her presenting symptoms were that of expressive aphasia which had resolved. She also had some balance problems. She has a history of known carotid stenosis. CT in the emergency room showed no acute intracranial abnormalities. CT of the head and neck did show significant stenosis. She had triglyceride of 184 total cholesterol 143 LDL of 74 and HDL of 32. Her echocardiogram did show significant aortic stenosis. At the time of my exam she is sitting up at bedside in no acute distress. Objective - Vital Signs Vital signs: Vital Signs Temp 96 F L 07/21/16 08:00 Pulse 46 L 07/21/16 16:00 Resp 16 07/21/16 16:00 BP 158/72 07/21/16 16:00 Pulse Ox 100 07/21/16 16:00 Intake & Output 07/20/16 07/21/16 07/21/16 18:59 06:59 18:59 Intake Total 180 360 417 Output Total 750 Balance 180 360 -333 Weight 77.111 kg 80.7 kg Intake: Oral 180 360 417 Output: Urine 750 Other: Voiding Method Incontinent Incontinent # Voids 1 1 2 - Constitutional General appearance: Present: average body habitus, no acute distress - EENT Eyes: Present: EOMI, PERRLA. Absent: abnormal pupil, ptosis ENT: Present: hearing grossly normal - Neck Neck: Present: normal ROM. Absent: rigidity - Respiratory Respiratory: negative: prolonged expiration, prolonged inspiration - Cardiovascular Rhythm: regular - Gastrointestinal General gastrointestinal: Absent: distended, tenderness - Neurologic Neurologic Comment(s): She is alert awake and oriented 3. Speech and language are normal. There is no facial asymmetry. Strength is 5 minus out of 5 bilateral upper and lower extremities. There is no sensory deficit. No tremors or seizure-like activities are seen. - Labs CBC & Chem 7: 07/21/16 06:10 07/21/16 06:10 Labs: Abnormal Lab Results - Last 24 Hours (Table) 07/20/16 07/20/16 07/21/16 Range/Units 17:08 20:49 06:10 BUN 18 H (7-17) mg/dL Glucose 159 H (74-99) mg/dL POC Glucose (mg/dL) 152 H 158 H (75-99) mg/dL Triglycerides 184 H (<150) mg/dL HDL Cholesterol 32 L (40-60) mg/dL 07/21/16 07/21/16 Range/Units 06:12 11:52 BUN (7-17) mg/dL Glucose (74-99) mg/dL POC Glucose (mg/dL) 156 H 162 H (75-99) mg/dL Triglycerides (<150) mg/dL HDL Cholesterol (40-60) mg/dL Assessment and Plan (1) TIA (transient ischemic attack) Status: Acute (2) Carotid stenosis Status: Chronic (3) Abnormality of heart valve Status: Chronic (4) Hypertension Status: Chronic (5) Diabetes Status: Chronic (6) Hyperlipidemia Status: Chronic Plan: It seems that she had suffered a transient ischemic attack. She will continue Plavix 75 mg and Lipitor 80 mg. Her symptoms of unsteadiness persist but are less, and she says this is a chronic problem and happens if she is sitting for prolonged period of time and gets up to walk. She thinks it mostly has to do with her musculoskeletal complaints rather than true dizziness or unsteadiness. This will be evaluated by physical and occupational therapy. Continue evaluation by speech therapy. There is already in order for an MRI/MRA . Otherwise her symptoms were likely due to her significant carotid stenosis. Continue cardiovascular workup and treatment. Continue neurological checks. She is otherwise cleared from a neurological standpoint. I have reviewed the history and physical on the above patient. I have reviewed the above note, and agree.
--- NOTE | 2016-07-21 20:42 | MR ---
EXAMINATION TYPE: MR brain wo/w mrane wo/wcon DATE OF EXAM: 07/21/2016 7:48 PM COMPARISON: NONE HISTORY: stenosis, headaches TECHNIQUE: Multiplanar, multisequence images of the brain, brainstem, and arterial vasculature is performed with out and with IV contrast, utilizing 20 mL intravenous MultiHance . FINDINGS: Diffusion weighted images demonstrate no evidence of a recent infarct or other diffusion ab normality. There are scattered areas of T2 hyperintensity within the periventricular and subcortical white matter as well as within the base of the cerebral peduncles. Findings are appreciated on the pr ior exam and have are overall unchanged with the largest measurable lesions unchanged in the left fro ntal lobe and right posterior basal ganglia. There is no extra-axial fluid collection or significant white matter signal abnormality. The ventricular system and cisternal spaces are normal in size and appearance. The brain volume is age appropriate. Midline structures demonstrate normal morphology. The craniocervical junction appears within normal limits. The dural venous sinuses appear patent. The visualized sinuses are clear and the globes are intact. The carotid systems are patent bilaterally with no evidence of focal stenosis or occlusion. Vertebral arteries are also patent with codominance. IMPRESSION: 1. No evidence of CVA, intracranial hemorrhage, or mass effect. 2. Overall unchanged degree of nonspecific white matter changes in comparison to the prior exam of 10/12/2014 with the largest focus in the left frontal lobe. 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 2. Patency of the carotid vasculature and vertebral basilar system without focal stenosis or occlusio n.
[2016-07-22 06:31] LABS: Glucose,Whole Blood 154 mg/dL (75-99)
[2016-07-22] MEDS: PIOGLITAZONE 15 MG TAB PO SCH (06:31)
[2016-07-22] MEDS: metFORMIN 850 MG TAB PO SCH (06:31)
[2016-07-22] MEDS: PANTOPRAZOLE 40 MG TABLET PO SCH (06:32)
[2016-07-22 08:11] VITALS: BP 117/54; PULSE 56; RESP 18; TEMP 97.5
[2016-07-22] MEDS: ASPIRIN 325 MG TAB PO SCH (08:12)
[2016-07-22] MEDS: MULTIVITAMINS, THERA 1 EACH TAB PO SCH (08:12)
[2016-07-22] MEDS: CHOLECALCIFEROL 1,000 UNIT TAB PO SCH (08:12)
[2016-07-22] MEDS: ATORVASTATIN 80 MG TAB PO SCH (08:13)
[2016-07-22] MEDS: HEPARIN SODIUM,PORCINE 5,000 UNIT/ML 1 ML VIAL SQ SCH (08:13)
[2016-07-22] MEDS: CLOPIDOGREL 75 MG TAB PO SCH (08:13)
[2016-07-22] MEDS: BISOPROLOL 5 MG TAB PO SCH (08:13)
--- NOTE | 2016-07-22 09:02 | P.PN ---
Subjective Principal diagnosis: Carotid stenosis Patient currently sitting up in chair in no apparent distress. Symptoms resolved. Objective - Vital Signs Vital signs: Vital Signs Temp 97.5 F L 07/22/16 08:00 Pulse 56 L 07/22/16 08:00 Resp 18 07/22/16 08:00 BP 117/54 07/22/16 08:00 Pulse Ox 96 07/22/16 08:00 Intake & Output 07/21/16 07/22/16 07/22/16 18:59 06:59 18:59 Intake Total 777 100 180 Output Total 750 Balance 27 100 180 Weight 80.2 kg Intake: Oral 777 100 180 Output: Urine 750 Other: Voiding Method Incontinent # Voids 2 2 - Constitutional General appearance: Present: cooperative, no acute distress - Respiratory Details: Lungs sounds clear. Patient currently on room air with oxygen saturation 95%. - Cardiovascular Details: S1, S2 present. Positive systolic murmur. Regular rate and rhythm, normal sinus rhythm on telemetry. - Gastrointestinal Gastrointestinal Comment(s): Abdomen soft, nontender, nondistended. Active bowel sounds 4 quadrants.. - Genitourinary Genitourinary Comment(s): Continues to void clear, yellow urine. - Neurologic Neurologic: Present: CNII-XII intact - Musculoskeletal Musculoskeletal: Present: gait normal, strength equal bilaterally - Psychiatric Psychiatric: Present: A&O x's 3, appropriate affect, intact judgment & insight - Allied health notes Allied health notes reviewed: nursing - Labs CBC & Chem 7: 07/21/16 06:10 07/21/16 06:10 Labs: Abnormal Lab Results - Last 24 Hours (Table) 07/21/16 07/22/16 Range/Units 11:52 06:30 POC Glucose (mg/dL) 162 H 154 H (75-99) mg/dL Assessment and Plan (1) Aortic stenosis Status: Acute (2) Mitral stenosis Status: Acute (3) CVA (cerebral vascular accident) Status: Acute (4) Carotid stenosis Status: Chronic (5) Diabetes Status: Chronic (6) Hyperlipidemia Status: Chronic (7) Hypertension Status: Chronic Plan: The patient was seen and examined with Dr. Okeefe. No surgical intervention at this time. Patient should follow-up with Dr. Okeefe in his office one week post discharge. Time with Patient: Greater than 30
--- NOTE | 2016-07-22 10:25 | P.DS ---
Providers Date of admission: 07/20/16 10:13 Expected date of discharge: 07/22/16 Attending physician: Gregorio Rivera Consults: 07/20/16 10:33 Consult Physician Urgent Consulting Provider: Kwame Irene Consult Reason/Comments: CVA Do you want consulting provider notified?: Yes 07/21/16 08:54 Consult Physician Urgent Consulting Provider: Koko Okeefe Consult Reason/Comments: CAROTID STENOSIS Do you want consulting provider notified?: Yes Primary care physician: Gregorio Rivera [facility] Course: Patient is an 85-year-old female with medical history significant for coronary artery disease, diabetes, hypertension, hyperlipidemia, myocardial infarction, hysterectomy, carotid stenosis, GI bleed, and angioplasty. Patient admitted through the emergency department with complaints of left-sided weakness and dysarthria. Initial CT of the head with no acute findings. Ultrasound of carotids with 50-70% stenosis of the right internal carotid and 0- 50% stenosis in the left internal carotid artery. Echocardiogram with Doppler with preserved LV function with an EF between 65-70%; moderate to severe aortic stenosis; and moderate mitral stenosis. Brain MRI with MRA with no acute process. Patient was admitted to the selective care unit with consult to neurology service and cardiovascular service. From a neurology standpoint, it appeared patient had suffered a transient ischemic attack and recommendations were to continue Plavix and Lipitor. No surgical interventions were planned from a cardio thoracic standpoint but patient was instructed to follow-up with Dr. Okeefe in his office in 1 week after discharge. Patient's symptoms resolved during her hospital stay and she was deemed stable for discharge to home. Discharge diagnoses: 1. Transient ischemic attack involving right hemisphere. 2. Moderate to severe aortic stenosis and moderate mitral stenosis. 3. Diabetes mellitus type 2. 4. Hypertension. 5. Dyslipidemia. 6. Carotid stenosis, chronic. 6. Coronary artery disease with angioplasty. 7. History of myocardial infarction. 8. History of GI bleed. The above impression and plan have been discussed and directed by Dr. Rivera. Beena PATTON acting as scribe for Dr. Rivera. Pertinent Studies: Angiographically CT; brain CT; chest x-ray; carotid Doppler study; EKG; echocardiogram with Doppler; brain MRI with MRA Patient Condition at Discharge: Good Plan - Discharge Summary New Discharge Prescriptions: Aspirin 325 mg PO DAILY #30 tab Atorvastatin [Lipitor] 80 mg PO DAILY #30 tab Clopidogrel [Plavix] 75 mg PO DAILY #30 tab Discharge Medication List Pioglitazone HCl/Metformin HCl [Pioglitazone-Metformin 90-689] 1 tab PO DAILY [History] Bisoprolol Fumarate [Zebeta] 5 mg PO BID 08/13/15 [History] Cholecalciferol [Vitamin D3] 1,000 unit PO DAILY 07/20/16 [History] Cla 1 tab PO DAILY 07/20/16 [History] Docusate [Colace] 100 mg PO DAILY PRN 07/20/16 [History] Multivitamins, Thera [Multivitamin (formulary)] 1 tab PO DAILY 07/20/16 [History ] Aspirin 325 mg PO DAILY #30 tab 07/22/16 [Rx] Atorvastatin [Lipitor] 80 mg PO DAILY #30 tab 07/22/16 [Rx] Clopidogrel [Plavix] 75 mg PO DAILY #30 tab 07/22/16 [Rx] Follow up Appointment(s)/Referral(s): Gregorio Rivera DO [Primary Care Provider] - 1-2 days Kwame Irene MD [STAFF PHYSICIAN] - 1 Week Koko Okeefe DO [Doctor of Osteopathic Medicine] - 1 Week Patient Instructions/Handouts: Transient Ischemic Attack (DC) Discharge Disposition: HOME SELF-CARE
--- NOTE | 2016-07-22 12:44 | EEG ---
DATE OF SERVICE: 07/21/2016 INDICATIONS FOR EXAMINATION: Stroke. AGE: 85Y DESCRIPTION OF THE PROCEDURE: This EEG was performed using a 21-channel digital electroencephalograph, following the international 10-20 system. DESCRIPTION OF THE RECORDING: From the beginning of the tracing, and with the patient's eyes closed, the background rhythm was mostly consisting of 8 Hz alpha frequency in the posterior occipital leads. No obvious asymmetry is seen. Photic stimulation was performed with a minimal driving response seen. No pathological waves were elicited. Later in the tracing, the patient does reach stage II of sleep and occasional sleep spindles are seen. Rare movement artifacts are noticed. No epileptiform discharges were seen. Her EKG lead showed a regular rate and rhythm. INTERPRETATION: This asleep and awake EEG can be considered within normal limits. There was no asymmetry seen. No epileptiform discharges were noticed. The absence of epileptiform discharges does not rule out the diagnosis of epilepsy; therefore, clinical correlation is recommended.
== END 2016-07-22 11:23 | disposition home or self-care (01) | DRG 69 ==
LOC: EC 06:49 → 6SEL 10:13
PROVIDERS: ADMIT Family Medicine; ATTEND Family Medicine
DX: G45.9 Transient cerebral ischemic attack, unspecified (principal); R47.01 Aphasia; E11.9 Type 2 diabetes mellitus without complications; R47.02 Dysphasia; R26.2 Difficulty in walking, not elsewhere classified; I10 Essential (primary) hypertension; E78.5 Hyperlipidemia, unspecified; I08.0 Rheumatic disorders of both mitral and aortic valves; I65.23 Occlusion and stenosis of bilateral carotid arteries; I25.10 Atherosclerotic heart disease of native coronary artery without angina pectoris; I25.2 Old myocardial infarction; Z90.710 Acquired absence of both cervix and uterus; Z79.84 Long term (current) use of oral hypoglycemic drugs; Z79.82 Long term (current) use of aspirin; Z79.899 Other long term (current) drug therapy
CPT/HCPCS: 36415; 70450; 70496; 70498; 70549; 70553; 71020; 80048; 80053; 80061; 81003; 82550; 82553; 83090; 84484; 85025; 85610; 85730; 93005; 93306; 93880; 95819; 96360; 99285

== ENCOUNTER 2016-08-14 15:49 | Inpatient (IN) | payer MEDICARE, BC ==
[2016-08-14 15:59] VITALS: RESP 18
[2016-08-14] MEDS ORDERED: DILTIAZEM 5 MG/ML 5 ML VIAL IVP STA ×3 (16:17→21:47)
[2016-08-14] MEDS ORDERED: SODIUM CHLORIDE 0.9% 1,000 ML IV STA (16:17)
[2016-08-14] MEDS ORDERED: SODIUM CHLORIDE 0.9% 500 ML IV STA (16:17)
--- NOTE | 2016-08-14 16:21 | ED ---
General Adult HPI - General Chief complaint: Fall Stated complaint: Fall Time Seen by Provider: 08/14/16 15:55 Source: patient, EMS, RN notes reviewed Mode of arrival: EMS Limitations: no limitations - History of Present Illness Initial comments: Patient is a pleasant 85-year-old female presenting to the emergency Department with complaints of fall. Incident occurred yesterday. Patient Medicine and Was Bending over. Patient Became Dizzy and Fell down. Patient Did Strike the Back of Her Head. Patient Did Not Pass out. No Syncope. No Significant Discomfort. Patient Was Fearful of Standing up Because She Would Get Dizzy and Possibly Fall Again. Patient Believes She May Have a History of A. fib. Patient Does Not Take Any Blood Thinners. Chart Review Is Positive for Plavix. Patient does have a history of intercranial hemorrhage 2 in the past. - Related Data Home Medications Medication Instructions Recorded Confirmed Pioglitazone HCl/Metformin HCl 1 tab PO DAILY 09/20/14 07/20/16 [Pioglitazone-Metformin 15-850] Bisoprolol Fumarate [Zebeta] 5 mg PO BID 08/13/15 07/20/16 Cholecalciferol [Vitamin D3] 1,000 unit PO DAILY 07/20/16 07/20/16 Cla 1 tab PO DAILY 07/20/16 07/20/16 Docusate [Colace] 100 mg PO DAILY PRN 07/20/16 07/20/16 Multivitamins, Thera [Multivitamin 1 tab PO DAILY 07/20/16 07/20/16 (formulary)] Previous Rx's Medication Instructions Recorded Aspirin 325 mg PO DAILY #30 tab 07/22/16 Atorvastatin [Lipitor] 80 mg PO DAILY #30 tab 07/22/16 Clopidogrel [Plavix] 75 mg PO DAILY #30 tab 07/22/16 Allergies Allergy/AdvReac Type Severity Reaction Status Date / Time latex Allergy Rash/Hives Verified 07/20/16 07:52 Sulfa (Sulfonamide Allergy Unknown Verified 07/20/16 07:52 Antibiotics) Review of Systems ROS Statement: Those systems with pertinent positive or pertinent negative responses have been documented in the HPI. ROS Other: All systems not noted in ROS Statement are negative. Constitutional: Denies: fever Eyes: Denies: eye pain ENT: Denies: ear pain Respiratory: Denies: cough Cardiovascular: Denies: chest pain Endocrine: Denies: fatigue Gastrointestinal: Denies: abdominal pain Genitourinary: Denies: dysuria Musculoskeletal: Denies: back pain Skin: Denies: rash Neurological: Denies: headache Past Medical History Past Medical History: Coronary Artery Disease (CAD), Diabetes Mellitus, Hyperlipidemia, Hypertension, Myocardial Infarction (NE) Additional Past Medical History / Comment(s): Prolapsed mitral valve, "leaky" aortic valve Last Myocardial Infarction Date:: 2006? History of Any Multi-Drug Resistant Organisms: None Reported Past Surgical History: Hysterectomy Additional Past Surgical History / Comment(s): angioplasty Past Anesthesia/Blood Transfusion Reactions: No Reported Reaction Past Psychological History: No Psychological Hx Reported Smoking Status: Never smoker Past Alcohol Use History: None Reported Past Drug Use History: None Reported General Exam Limitations: no limitations General appearance: alert, in no apparent distress Head exam: Present: atraumatic Eye exam: Present: normal appearance, EOMI, other (Left pupil is slightly larger however is reactive.) ENT exam: Present: normal oropharynx Neck exam: Present: normal inspection, full ROM. Absent: tenderness, meningismus Respiratory exam: Present: normal lung sounds bilaterally Cardiovascular Exam: Present: tachycardia, irregular rhythm GI/Abdominal exam: Present: soft. Absent: tenderness Extremities exam: Present: normal inspection, full ROM. Absent: tenderness Back exam: Present: normal inspection Neurological exam: Present: alert, oriented X3, CN II-XII intact. Absent: motor sensory deficit Expanded Speech: Present: fluid speech Cranial nerves: EOM's Intact: Normal, Facial Sensation: Normal Sensory exam: Upper Extremity Light Touch: Normal, Lower Extremity Light Touch: Normal Motor strength exam: RUE: 5, LUE: 5, RLE: 5, LLE: 5 Eye Response: (4) open spontaneously Motor Response: (6) obeys commands Verbal Response: (5) oriented Psychiatric exam: Present: normal affect, normal mood Skin exam: Present: normal color Course Vital Signs 08/14/16 08/14/16 15:55 17:02 Temperature 97.9 F Pulse Rate 148 H 147 H Respiratory 18 18 Rate Blood Pressure 136/87 121/88 O2 Sat by Pulse 97 100 Oximetry EKG Findings - EKG Comments: EKG Findings:: A. fib with RVR, rate 147. QRS 94. QT 292. QTC 46. Left axis. Poor R-wave progression. Nonspecific ST-T. Medical Decision Making - Medical Decision Making Patient reexamined and resting comfortably in bed. Patient and family updated on results and plan. Heart rate did improve with Cardizem however has increased to 145 again. Patient will be provided additional Cardizem. Case was discussed in detail with Dr. Rivera, who will admit his patient. He would like heparin provided. - Lab Data Result diagrams: 08/14/16 14:20 08/14/16 14:20 Lab Results 08/14/16 08/14/16 08/14/16 Range/Units 14:20 14:20 14:20 WBC 12.1 H (3.8-10.6) k/uL RBC 4.26 (3.80-5.40) m/uL Hgb 12.7 (11.4-16.0) gm/dL Hct 36.2 (34.0-46.0) % MCV 84.9 (80.0-100.0) fL MCH 29.9 (25.0-35.0) pg MCHC 35.2 (31.0-37.0) g/dL RDW 13.1 (11.5-15.5) % Plt Count 241 (150-450) k/uL Neutrophils % (Manual) 71.0 % Lymphocytes % (Manual) 20.0 % Monocytes % (Manual) 9.0 % Neutrophils # (Manual) 8.6 H (1.3-7.7) k/uL Lymphocytes # (Manual) 2.4 (1.0-4.8) k/uL Monocytes # (Manual) 1.1 H (0-1.0) k/uL Nucleated RBCs 0 (0-0) /100 WBC Polychromasia Present PT (9.0-12.0) sec INR (<1.1) APTT (22.0-30.0) sec Sodium 137 (137-145) mmol/L Potassium 4.5 (3.5-5.1) mmol/L Chloride 100 (98-107) mmol/L Carbon Dioxide 22 (22-30) mmol/L Anion Gap 15 mmol/L BUN 24 H (7-17) mg/dL Creatinine 0.80 (0.52-1.04) mg/dL Est GFR (MDRD) Af Amer >60 (>60 ml/min/1.73 sqM) Est GFR (MDRD) Non-Af >60 (>60 ml/min/1.73 sqM) Glucose 169 H (74-99) mg/dL Calcium 9.0 (8.4-10.2) mg/dL Magnesium 2.0 (1.6-2.3) mg/dL Total Bilirubin 0.9 (0.2-1.3) mg/dL AST 32 (14-36) U/L ALT 34 (9-52) U/L Alkaline Phosphatase 77 (38-126) U/L Total Creatine Kinase 139 H (30-135) U/L CK-MB (CK-2) 10.6 H* (0.0-2.4) ng/mL CK-MB (CK-2) Rel Index 7.6 Troponin I 2.260 H* (0.000-0.034) ng/mL Total Protein 6.6 (6.3-8.2) g/dL Albumin 3.5 (3.5-5.0) g/dL TSH 2.870 (0.465-4.680) mIU/L Free T4 1.54 (0.78-2.19) ng/dL Free T3 pg/mL 3.3 (2.8-5.3) pg/ml 08/14/16 Range/Units 14:20 WBC (3.8-10.6) k/uL RBC (3.80-5.40) m/uL Hgb (11.4-16.0) gm/dL Hct (34.0-46.0) % MCV (80.0-100.0) fL MCH (25.0-35.0) pg MCHC (31.0-37.0) g/dL RDW (11.5-15.5) % Plt Count (150-450) k/uL Neutrophils % (Manual) % Lymphocytes % (Manual) % Monocytes % (Manual) % Neutrophils # (Manual) (1.3-7.7) k/uL Lymphocytes # (Manual) (1.0-4.8) k/uL Monocytes # (Manual) (0-1.0) k/uL Nucleated RBCs (0-0) /100 WBC Polychromasia PT 11.5 (9.0-12.0) sec INR 1.2 (<1.1) APTT 24.0 (22.0-30.0) sec Sodium (137-145) mmol/L Potassium (3.5-5.1) mmol/L Chloride (98-107) mmol/L Carbon Dioxide (22-30) mmol/L Anion Gap mmol/L BUN (7-17) mg/dL Creatinine (0.52-1.04) mg/dL Est GFR (MDRD) Af Amer (>60 ml/min/1.73 sqM) Est GFR (MDRD) Non-Af (>60 ml/min/1.73 sqM) Glucose (74-99) mg/dL Calcium (8.4-10.2) mg/dL Magnesium (1.6-2.3) mg/dL Total Bilirubin (0.2-1.3) mg/dL AST (14-36) U/L ALT (9-52) U/L Alkaline Phosphatase (38-126) U/L Total Creatine Kinase (30-135) U/L CK-MB (CK-2) (0.0-2.4) ng/mL CK-MB (CK-2) Rel Index Troponin I (0.000-0.034) ng/mL Total Protein (6.3-8.2) g/dL Albumin (3.5-5.0) g/dL TSH (0.465-4.680) mIU/L Free T4 (0.78-2.19) ng/dL Free T3 pg/mL (2.8-5.3) pg/ml - Radiology Data Radiology results: report reviewed (Computed tomography scan of the brain shows mild atrophy. No change compared to old exam.), image reviewed (Chest x-ray shows no acute process) Critical Care Time Critical Care Time: Yes Total Critical Care Time: 33 Disposition Clinical Impression: Fall, Atrial fibrillation with RVR Disposition: ADMITTED IP TO THIS HOSP Referrals: Gregorio Rivera DO [Primary Care Provider] - 1-2 days Time of Disposition: 17:36
[2016-08-14 16:41] LABS: Aty Lym Flag Slight; CH 29.2; CHCM 34.6; HCT 36.2 % (34.0-46.0); HDW 2.77; HGB 12.7 gm/dL (11.4-16.0); MCH 29.9 pg (25.0-35.0); MCHC 35.2 g/dL (31.0-37.0); MCV 84.9 fL (80.0-100.0); Mean Platelet Volume 6.9; RBC 4.26 m/uL (3.80-5.40); RDW 13.1 % (11.5-15.5); WBC 12.1 k/uL (3.8-10.6); WBC (Perox) 12.21
[2016-08-14 16:42] LABS: INR 1.2 (<1.1); Prothrombin Time 11.5 sec (9.0-12.0)
[2016-08-14 16:44] LABS: ALT 34 U/L (9-52); AST 32 U/L (14-36); Alkaline Phosphatase 77 U/L (38-126); Anion Gap 15 mmol/L; Blood Urea Nitrogen 24 mg/dL (7-17); Carbon Dioxide 22 mmol/L (22-30); Chloride 100 mmol/L (98-107); Glucose 169 mg/dL (74-99); Non-African American GFR(MDRD) >60 (>60 ml/min/1.73 sqM); Potassium 4.5 mmol/L (3.5-5.1); Sodium 137 mmol/L (137-145); Total Bilirubin 0.9 mg/dL (0.2-1.3); Total Protein 6.6 g/dL (6.3-8.2)
[2016-08-14 16:52] LABS: Add Differential Manual Differential
[2016-08-14 16:54] LABS: Nucleated Red Blood Cells 0 /100 WBC (0-0); Polychromasia Present; Total Cells Counted 100
--- NOTE | 2016-08-14 17:05 | XR ---
EXAMINATION TYPE: XR chest 2V DATE OF EXAM: 08/14/2016 COMPARISON: NONE HISTORY: Dysrhythmia and fall today TECHNIQUE: Frontal and lateral views of the chest are obtained. FINDINGS: Heart appears enlarged. There is no gross heart failure. Lungs are clear of consolidation. There is no pleural effusion. There are chest leads. Bony thorax appears intact. There is subacromia l joint space narrowing on the right shoulder. IMPRESSION: Cardiomegaly. No acute lung disease.
[2016-08-14 17:09] LABS: Creatine Kinase MB 10.6 ng/mL (0.0-2.4)
--- NOTE | 2016-08-14 17:10 | CT ---
EXAMINATION TYPE: CT brain wo con DATE OF EXAM: 08/14/2016 COMPARISON: 07/20/2016 HISTORY: Fall today with posterior injury CT DLP: 1162.8 mGycm Automated exposure control for dose reduction was used. FINDINGS: There is cerebral mild cortical atrophy. There is no mass effect nor midline shift. There is mild hyp odensity around the lateral ventricles. The calvarium is intact. There is no sign of intracranial hem orrhage. IMPRESSION: Mild atrophy and chronic small vessel ischemia. No change compared to old exam.
[2016-08-14 17:11] LABS: Troponin I 2.26 ng/mL (0.000-0.034)
[2016-08-14] MEDS ORDERED: DILTIAZEM 125 MG in SODIUM CHLORIDE 0.9% 100 ML IV ONE (17:34)
[2016-08-14] MEDS ORDERED: HEPARIN SODIUM,PORCINE 5,000 UNIT/ML 1 ML VIAL IV ONE (17:36)
[2016-08-14] MEDS ORDERED: NITROGLYCERIN SL TABS 0.4 MG TAB SUBLINGUAL PRN (17:36)
[2016-08-14] MEDS ORDERED: ASPIRIN 81 MG CHEW PO STA (17:36)
[2016-08-14] MEDS ORDERED: HEPARIN SODIUM,PORCINE 5,000 UNIT/ML 1 ML VIAL IV PRN (17:36)
[2016-08-14] MEDS ORDERED: HEPARIN SODIUM,PORCINE/D5W PMX 25,000 UNIT in DEXTROSE/WATER 1 500ML.BAG IV SCH (17:45)
[2016-08-14 21:23] LABS: Creatine Kinase MB 8.6 ng/mL (0.0-2.4); Troponin I 1.71 ng/mL (0.000-0.034)
[2016-08-14 21:26] LABS: Glucose,Whole Blood 192 mg/dL (75-99)
[2016-08-14] MEDS: NITROGLYCERIN OINT 1 INCH/GM PACKET TOPICAL SCH (23:49)
[2016-08-15 02:49] LABS: Mean Platelet Volume 6.9
[2016-08-15 02:59] LABS: Cholesterol 106 mg/dL (<200); HDL Cholesterol 22 mg/dL (40-60); Triglycerides 141 mg/dL (<150)
[2016-08-15] MEDS: NITROGLYCERIN OINT 1 INCH/GM PACKET TOPICAL SCH ×5 (03:37→23:18)
[2016-08-15 03:53] VITALS: BMI 28.3
[2016-08-15 03:56] LABS: Creatine Kinase MB 5.1 ng/mL (0.0-2.4); Troponin I 1.18 ng/mL (0.000-0.034)
[2016-08-15 06:14] LABS: Glucose,Whole Blood 192 mg/dL (75-99)
[2016-08-15] MEDS ORDERED: DILTIAZEM 125 MG in SODIUM CHLORIDE 0.9% 100 ML IV SCH (06:15)
[2016-08-15] MEDS ORDERED: DOCUSATE 100 MG CAP PO PRN (08:12)
[2016-08-15] MEDS ORDERED: ASPIRIN 325 MG TAB PO SCH ×2 (09:00)
[2016-08-15] MEDS ORDERED: BISOPROLOL 5 MG TAB PO SCH (09:00)
[2016-08-15] MEDS ORDERED: CLOPIDOGREL 75 MG TAB PO SCH (09:00)
[2016-08-15] MEDS: ATORVASTATIN 80 MG TAB PO SCH (09:01)
[2016-08-15] MEDS: AMOXICILLIN 500 MG CAP PO SCH ×3 (09:01→20:46)
[2016-08-15] MEDS: MULTIVITAMINS, THERA 1 EACH TAB PO SCH (09:02)
[2016-08-15] MEDS: metFORMIN 850 MG TAB PO SCH (09:02)
[2016-08-15] MEDS: PIOGLITAZONE 15 MG TAB PO SCH (09:02)
[2016-08-15] MEDS: CHOLECALCIFEROL 1,000 UNIT TAB PO SCH (09:02)
--- NOTE | 2016-08-15 11:25 | CONS ---
This is an 86-year-old lady with history of [id number]-ysrhhjizr diabetes, dyslipidemia, history of atrial fibrillation, prior history of intracranial bleed and TIA who presented to hospital having had a fall at home. She thinks that she slipped and fell. She denies chest pain, difficulty in breathing, palpitations, dizziness or syncope. There are no focal neurological deficits. Her troponin came back elevated at 2.2, 1.7 and 1.1. The patient at the time of my evaluation is in A. fib with better controlled ventricular rate. When she first came, she was in A. fib with RVR. I believe the troponin elevation is related to supply demand mismatch. Patient was on anticoagulants in the past. They were stopped following intracranial bleed, but subsequently she had been stable and was started on aspirin and Plavix because of the TIA that she had around Mother's Day. At the moment, she is on heparin, tolerating it well without any issues. I am going to stop the IV heparin and start her on Eliquis. I had a long conversation with the patient and her daughter, explained to them the risks, benefits, including the risk of bleeding versus the benefit with prevention of stroke. Understanding all the issues, they wished to be on Eliquis. I am starting her on amiodarone. My expectation is that this will control the heart rate better and maybe keep her in regular rhythm and prevent future heart attacks. Also I will continue the IV Cardizem at this time. Patient appears comfortable at rest. I reviewed her records. Past medical history is significant for [id number] diabetes. Current medications include: 1. Metformin. 2. Zebeta. 3. Aspirin. 4. Lipitor. 5. Plavix. ALLERGIC TO SULFA. Family history is negative for premature coronary artery disease. SOCIAL HISTORY: Negative for smoking, EtOH abuse or drug abuse. REVIEW OF SYSTEMS: HEENT: Unremarkable. CARDIAC: As described above. RESPIRATORY: Negative. GI: Negative. GENITOURINARY: Negative. ALLERGY/IMMUNOLOGY: Negative. MUSCULOSKELETAL: Significant for arthritis. PSYCHOSOCIAL: Negative. ENDOCRINE: Negative. CONSTITUTIONAL: Negative. ONCOLOGICAL: Negative. The rest of the system review is not relevant. On exam, heart rate is 110 beats per minute, irregular. Blood pressure is 121/60, respiratory rate is 18, O2 sat is 93%. There is no jugular venous distention. Carotid upstroke is normal. There is no bruit. Chest reveals good air entry bilaterally. Heart reveals first and second heart sounds, irregular rhythm. There is ejection systolic murmur in the aortic area. ABDOMEN: Soft. Extremities did not reveal any edema. Peripheral pulses are palpable. ASSESSMENT: 1. Atrial fibrillation with rapid ventricular rate. 2. Non-ST segment elevation myocardial infarction, probably secondary to supply demand mismatch. PLAN: I am going to treat the patient with amiodarone, start him on Eliquis 2.5 b.i.d., aspirin 81 mg daily, atorvastatin, bisoprolol and continue the IV Cardizem. Once the heart rate is better controlled, we can switch her to p.o. Cardizem, oral beta blockers, obtain a 2-D echo to evaluate LV function.
[2016-08-15 11:44] LABS: Glucose,Whole Blood 250 mg/dL (75-99)
[2016-08-15] MEDS: APIXABAN 2.5 MG TABLET PO SCH ×2 (12:06→20:46)
[2016-08-15] MEDS: AMIODARONE 200 MG TAB PO SCH ×2 (12:06→20:46)
--- NOTE | 2016-08-15 12:38 | CDI ---
In responding to this query, please exercise your independent professional judgment. The [employer] [facility] [employer] Coding Staff and Clinical Documentation Specialists appreciate your assistance in clarifying documentation, maintaining compliance with coding guidelines, accurately documenting patients condition and capturing severity of illness. The fact that a question is asked does not imply that any particular answer is desired or expected. Communication forms are a method of clarifying documentation and are not made part of the Legal Health Record. Thank you in advance for your clarification. Last Revision, January 2015 Jenn Chaudhari [address] [place] [address] Documentation Clarification Form Date: 08/15/2016 12:32:00 PM From: Dot Castañeda CCS, CCDS Admit Date: 08/14/2016 5:36:00 PM Patient Name: Allison Flores Visit Number: [id number] Discharge Date: Dr. Dusty Interiano: Atrial fibrillation is documented in the cardiology consult as atrial fibrillation with rapid ventricular rate. History/Risk Factors: A Fib, NIDDM, Dyslipidemia, Intracranial bleed and TIA. Clinical Indicators: Patient tripped & fell at home, found to be in A Fib on presentation with elevated troponins, felt to be supply demand mismatch. EKG/telemetry: R 147 A Fib w/RVR Treatment: Cardizem drrafi, start Eliquis & Amiodarone, ECHO pending. Consults: Cardiology In your professional opinion, can you please clarify the type of atrial fibrillation, if known? Chronic/Permanent Paroxysmal Persistent Other, please specify Unable to determine Please document in your progress notes and discharge summary in order to capture severity of illness and risk of mortality. Include clinical findings that support your diagnosis. FYI: Press F11 to launch patient chart Place X here if this finding has no clinical significance, is not applicable or if you are not able to provide any additional documentation. Thank You. MIGUEL
[2016-08-15 16:50] LABS: Glucose,Whole Blood 168 mg/dL (75-99)
[2016-08-15] MEDS: METOPROLOL TARTRATE 50 MG TAB PO SCH (20:12)
[2016-08-15 21:05] LABS: Glucose,Whole Blood 270 mg/dL (75-99)
[2016-08-16 05:47] LABS: CH 29.1; CHCM 33.4; HCT 32.1 % (34.0-46.0); HDW 2.52; HGB 10.6 gm/dL (11.4-16.0); MCH 28.7 pg (25.0-35.0); MCHC 32.9 g/dL (31.0-37.0); MCV 87.4 fL (80.0-100.0); Mean Platelet Volume 7.7; RBC 3.67 m/uL (3.80-5.40); RDW 13.3 % (11.5-15.5); WBC 9.9 k/uL (3.8-10.6)
[2016-08-16 06:05] LABS: Anion Gap 8 mmol/L; Blood Urea Nitrogen 24 mg/dL (7-17); Calcium 8.1 mg/dL (8.4-10.2); Carbon Dioxide 25 mmol/L (22-30); Chloride 99 mmol/L (98-107); Glucose 162 mg/dL (74-99); Non-African American GFR(MDRD) >60 (>60 ml/min/1.73 sqM); Potassium 4.1 mmol/L (3.5-5.1); Sodium 132 mmol/L (137-145)
[2016-08-16 06:08] LABS: Glucose,Whole Blood 187 mg/dL (75-99)
[2016-08-16] MEDS: NITROGLYCERIN OINT 1 INCH/GM PACKET TOPICAL SCH ×4 (06:33→23:18)
[2016-08-16] MEDS: AMIODARONE 200 MG TAB PO SCH ×3 (09:32→22:03)
[2016-08-16] MEDS: AMOXICILLIN 500 MG CAP PO SCH ×3 (09:32→22:03)
[2016-08-16] MEDS: CHOLECALCIFEROL 1,000 UNIT TAB PO SCH (09:33)
[2016-08-16] MEDS: ATORVASTATIN 80 MG TAB PO SCH (09:33)
[2016-08-16] MEDS: ASPIRIN 81 MG CHEW PO SCH (09:33)
[2016-08-16] MEDS: APIXABAN 2.5 MG TABLET PO SCH ×2 (09:33→22:03)
[2016-08-16] MEDS: metFORMIN 850 MG TAB PO SCH (09:33)
[2016-08-16] MEDS: MULTIVITAMINS, THERA 1 EACH TAB PO SCH (09:34)
[2016-08-16] MEDS: PIOGLITAZONE 15 MG TAB PO SCH (09:34)
[2016-08-16] MEDS: METOPROLOL TARTRATE 50 MG TAB PO SCH (09:34)
[2016-08-16 11:47] LABS: Glucose,Whole Blood 235 mg/dL (75-99)
--- NOTE | 2016-08-16 12:34 | P.PN ---
Subjective Principal diagnosis: A. fib This is an 86-year-old female with history of diabetes, hyperlipidemia , paroxysmal A. fib, intracranial bleed, TIA, who presented to the hospital after she experienced a fall at home. Troponin came back to be marginally elevated, patient was also found to be in atrial fibrillation with rapid ventricular response. She was seen in consultation yesterday by Dr. Scott it was not felt that the patient had an acute NH, that the troponins were likely elevated to oxygen supply and demand mismatch. At the time of her examination today she continues to be in atrial fibrillation with a heart rate in the 60s. We will decrease amiodarone to 200 mg one tablet by mouth 3 times a day decrease metoprolol tartrate 25 mg twice a day and continue current dose of Eliquis 2-1/2 mg one tablet by mouth twice a day. Hemoglobin this morning 10.6. Arrangements are being made for temporary rehab post discharge from the hospital. Objective - Vital Signs Vital signs: Vital Signs Temp 98.4 F 08/16/16 08:55 Pulse 73 08/16/16 08:55 Resp 18 08/16/16 08:55 BP 102/46 08/16/16 08:55 Pulse Ox 96 08/16/16 08:55 Intake & Output 08/15/16 08/16/16 08/16/16 18:59 06:59 18:59 Intake Total 337 240 Output Total 200 Balance 337 40 Weight 79.5 kg Intake: Oral 337 240 Output: Urine 200 Other: Voiding Method Toilet Toilet Toilet # Voids 1 1 1 # Bowel Movements 0 - Exam PHYSICAL EXAMINATION: HEENT: Head is atraumatic, normocephalic. Pupils equal, round. Neck is supple. There is no elevated jugular venous pressure. HEART EXAMINATION: S1 and S2 irregularly irregular a systolic murmur is heard. CHEST EXAMINATION: Lungs are clear to auscultation and precussion. No chest wall tenderness is noted on palpation or with deep breathing. ABDOMEN: Soft, nontender. Bowel sounds are heard. No organomegaly noted. EXTREMITIES:[ 2+ peripheral pulses with no evidence of peripheral edema and no calf tenderness noted]. NEUROLOGIC [patient is awake, alert and oriented -3.] . - Labs CBC & Chem 7: 08/16/16 05:36 08/16/16 05:36 Labs: Abnormal Lab Results - Last 24 Hours (Table) 08/15/16 08/15/16 08/16/16 Range/Units 16:30 21:04 05:36 RBC 3.67 L (3.80-5.40) m/uL Hgb 10.6 L (11.4-16.0) gm/dL Hct 32.1 L (34.0-46.0) % Sodium (137-145) mmol/L BUN (7-17) mg/dL Glucose (74-99) mg/dL POC Glucose (mg/dL) 168 H 270 H (75-99) mg/dL Calcium (8.4-10.2) mg/dL 08/16/16 08/16/16 08/16/16 Range/Units 05:36 06:06 11:45 RBC (3.80-5.40) m/uL Hgb (11.4-16.0) gm/dL Hct (34.0-46.0) % Sodium 132 L (137-145) mmol/L BUN 24 H (7-17) mg/dL Glucose 162 H (74-99) mg/dL POC Glucose (mg/dL) 187 H 235 H (75-99) mg/dL Calcium 8.1 L (8.4-10.2) mg/dL Assessment and Plan (1) AF (paroxysmal atrial fibrillation) Status: Acute (2) Atrial fibrillation with RVR Status: Acute (3) Aortic stenosis Status: Acute (4) CVA (cerebral vascular accident) Status: Acute (5) Mitral stenosis Status: Acute (6) TIA (transient ischemic attack) Status: Acute (7) Diabetes Status: Chronic (8) Hyperlipidemia Status: Chronic (9) Hypertension Status: Chronic Plan: From cardiology's perspective, we'll decrease the dose of amiodarone to 200 mg one tablet by mouth 3 times a day, decreased metoprolol tartrate 25 mg one tablet by mouth twice a day and continue Eliquis 2-1/2 mg one tablet by mouth twice a day. Patient may be transferred to rehab from cardiology's perspective , we'll make a follow-up appointment in the office post discharge. DNP note has been reviewed, I agree with a documented findings and plan of care. Patient was seen and examined.
[2016-08-16 16:48] LABS: Glucose,Whole Blood 125 mg/dL (75-99)
[2016-08-16 20:54] LABS: Glucose,Whole Blood 174 mg/dL (75-99)
--- NOTE | 2016-08-16 21:27 | HP ---
DATE OF ADMISSION: 08/14/2016 CHIEF COMPLAINT: Fall. HISTORY OF PRESENT ILLNESS: Ms. Flores is an 85-year-old female with a past medical history of coronary artery disease, diabetes mellitus, hypertension, hyperlipidemia, admitted to the hospital with chief complaints of fall. Patient states that she has become dizzy and fell down, did strike the back of her head but did not pass out. Patient denied having any difficulty in breathing, chest pain, cough or palpitations. At the time of admission, the patient was found to be in A. fib with RVR and slight elevation of troponins. Patient does have a previous history of A. fib and was on anticoagulation that was stopped following an intracranial bleed. Subsequently she was started on aspirin and Plavix. Due to her elevation in troponins, she was started on IV heparin that was discontinued by cardiology. She was started on Eliquis for anticoagulation. Patient was also started on amiodarone and heart rate is under better control currently. REVIEW OF SYSTEMS: CONSTITUTIONAL: Denies having fever, chills, or rigors. RESPIRATORY: No cough. No difficulty in breathing. CARDIAC: No chest pain or palpitations. GI: No abdominal pain, nausea, vomiting, or diarrhea. : No dysuria, hematuria. Hematology: No history of recurrent infection or easy bruising. SKIN: No rashes. Allergy/Immunology: No history of seasonal allergies or any allergies. ENDOCRINE: Positive for history of hypertension and diabetes. NEUROLOGICAL: Patient denies having any headaches, blurring of vision or slurring of speech. All 13 review of systems are done and negative except for the ones mentioned in the HPI. Past medical history of coronary artery disease, stroke/TIA, diabetes mellitus, hypertension, hyperlipidemia. PAST SURGICAL HISTORY: Hysterectomy. ALLERGIES TO LATEX AND SULFA DRUGS. Patient's home medications: 1. ( ) metformin 15/50, 1 tablet p.o. daily. 2. ( ) mg p.o. b.i.d. 3. Multivitamin 1 tablet p.o. daily. 4. Colace 100 mg p.o. daily p.r.n. 5. Vitamin D3 1000 units p.o. daily. 6. Aspirin 325 mg daily. 7. Atorvastatin 18 mg a p.o. daily. 8. Plavix 75 mg p.o. daily. 9. Amoxicillin 500 mg p.o. 3 times a day SOCIAL HISTORY: The patient was never a smoker. No alcohol and no drugs. FAMILY HISTORY: Positive for hypertension. On examination, patient's vital signs: Temperature 98.4, heart rate 64, respirations 18, blood pressure 113/53, saturating at 95% on room air. GENERAL EXAMINATION: Patient appears to be in no acute distress, lying comfortably in the bed and appears to be no acute distress. HEAD: Atraumatic, normocephalic. EYES: Pupils, round, and reactive to light. NECK: No JVD. No thyromegaly. CARDIOVASCULAR: S1, S2 heard, irregularly irregular and positive for systolic murmur. LUNGS: Bilateral breath sounds are positive. No wheezes or crackles. ABDOMEN: Soft, nontender, no organomegaly. Bowel sounds are positive. EXTREMITIES: No edema. No cyanosis, no clubbing. Peripheral pulses are felt. MUSCULOSKELETAL: No joint swelling or deformity. KITCHEN HAND: Alert, awake and oriented x3. No focal neurological deficits. SKIN: No rash. PSYCHIATRIC: Appropriate mood and affect. Labs: White count of 9.9, hemoglobin is 10.6, platelets of 233, sodium 132, potassium 4.1, chloride 99, bicarb 25, BUN 24, creatinine 0.79. The patient's troponins are 1.710 and 1.180. ASSESSMENT AND PLAN: 1. Fall. Most likely secondary to irregular heart rate. 2. Atrial fibrillation with rapid ventricular rate at the time of admission. 3. Type 2 diabetes mellitus. 4. Hypertension. 5. History of coronary artery disease. 6. Hyperlipidemia. 7. History of stroke/transient ischemic attack in the past. 8. Hyperlipidemia. PLAN: The patient is still in A. fib converted into sinus rhythm. Currently she has been started on p.o. amiodarone and also on Eliquis for anticoagulation as per cardiology recommendations. 2-D echo pending. Patient did have a CT scan of her brain that was within normal limits. We will continue with the rest of her home medications regimen and further recommendations to follow depending on the progress of the patient.
[2016-08-16] MEDS: METOPROLOL TARTRATE 25 MG TAB PO SCH (22:03)
[2016-08-17 06:04] LABS: Basophils % (A) 0 %; CH 28.8; CHCM 34.4; Eosinophils # (A) 0.1 k/uL (0-0.7); Eosinophils % (A) 2 %; HCT 29.2 % (34.0-46.0); HDW 2.79; HGB 10.1 gm/dL (11.4-16.0); Luc # (Auto) 0.22; Luc % (Auto) 3; Lymphocytes # (A) 1.1 k/uL (1.0-4.8); Lymphocytes % (A) 14 %; MCHC 34.5 g/dL (31.0-37.0); Mean Platelet Volume 6.7; Monocytes # (A) 0.4 k/uL (0-1.0); Monocytes % (A) 5 %; Neutrophils # (A) 5.8 k/uL (1.3-7.7); Neutrophils % (A) 76 %; RBC 3.47 m/uL (3.80-5.40); WBC 7.6 k/uL (3.8-10.6); WBC (Perox) 8.07
[2016-08-17 06:12] LABS: Glucose,Whole Blood 152 mg/dL (75-99)
[2016-08-17 06:20] LABS: Anion Gap 7 mmol/L; Blood Urea Nitrogen 21 mg/dL (7-17); Calcium 8.4 mg/dL (8.4-10.2); Carbon Dioxide 26 mmol/L (22-30); Chloride 102 mmol/L (98-107); Glucose 142 mg/dL (74-99); Non-African American GFR(MDRD) >60 (>60 ml/min/1.73 sqM); Potassium 4.5 mmol/L (3.5-5.1); Sodium 135 mmol/L (137-145)
[2016-08-17] MEDS: NITROGLYCERIN OINT 1 INCH/GM PACKET TOPICAL SCH ×4 (06:25→23:44)
[2016-08-17] MEDS: AMIODARONE 200 MG TAB PO SCH ×3 (08:40→20:58)
[2016-08-17] MEDS: AMOXICILLIN 500 MG CAP PO SCH ×3 (08:40→20:58)
[2016-08-17] MEDS: ATORVASTATIN 80 MG TAB PO SCH (08:40)
[2016-08-17] MEDS: APIXABAN 2.5 MG TABLET PO SCH ×2 (08:40→20:58)
[2016-08-17] MEDS: CHOLECALCIFEROL 1,000 UNIT TAB PO SCH (08:40)
[2016-08-17] MEDS: ASPIRIN 81 MG CHEW PO SCH (08:40)
[2016-08-17] MEDS: MULTIVITAMINS, THERA 1 EACH TAB PO SCH (08:41)
[2016-08-17] MEDS: PIOGLITAZONE 15 MG TAB PO SCH (08:41)
[2016-08-17] MEDS: METOPROLOL TARTRATE 25 MG TAB PO SCH ×2 (08:41→20:58)
[2016-08-17] MEDS: metFORMIN 850 MG TAB PO SCH (08:41)
[2016-08-17 11:37] LABS: Glucose,Whole Blood 186 mg/dL (75-99)
[2016-08-17 16:53] LABS: Glucose,Whole Blood 147 mg/dL (75-99)
--- NOTE | 2016-08-17 17:08 | PN ---
Mrs. Flores is a lady who came in with atrial fib, rapid ventricular response and rate control was excellent yesterday. This morning she converted to sinus rhythm. She is anticoagulated with Eliquis. She is resting comfortably. Denies chest pain. Feels more alert and active. Vital signs are stable. Blood pressure 110/70, pulse rate 70 per minute. S1, S2 heard normally. Short systolic murmur noted. Lungs revealed improved air entry. Abdomen and lower extremity exam is unchanged. Plan is to continue current medications and she can be discharged.
[2016-08-17 21:32] LABS: Glucose,Whole Blood 203 mg/dL (75-99)
[2016-08-18] MEDS: NITROGLYCERIN OINT 1 INCH/GM PACKET TOPICAL SCH ×2 (05:09→12:53)
[2016-08-18 06:00] LABS: Glucose,Whole Blood 158 mg/dL (75-99)
[2016-08-18] MEDS: PIOGLITAZONE 15 MG TAB PO SCH (08:32)
[2016-08-18] MEDS: AMOXICILLIN 500 MG CAP PO SCH ×2 (08:32→15:05)
[2016-08-18] MEDS: CHOLECALCIFEROL 1,000 UNIT TAB PO SCH (08:32)
[2016-08-18] MEDS: METOPROLOL TARTRATE 25 MG TAB PO SCH (08:33)
[2016-08-18] MEDS: APIXABAN 2.5 MG TABLET PO SCH (08:33)
[2016-08-18] MEDS: metFORMIN 850 MG TAB PO SCH (08:33)
[2016-08-18] MEDS: AMIODARONE 200 MG TAB PO SCH ×2 (08:33→15:05)
[2016-08-18] MEDS: ASPIRIN 81 MG CHEW PO SCH (08:33)
[2016-08-18] MEDS: ATORVASTATIN 80 MG TAB PO SCH (08:33)
--- NOTE | 2016-08-18 10:39 | PN ---
DATE OF SERVICE: 08/17/2016 INTERVAL HISTORY: Ms. Flores is an 85-year-old female with a past medical history of CAD, diabetes mellitus, hypertension, hyperlipidemia, admitted to the hospital with a chief complaint of fall. The patient had become dizzy and had a fall but did not pass out and at the time of admission, the patient was found to be in A. fib RVR and slight elevation of her troponins. Patient has been started on IV heparin and was started on amiodarone and she converted into sinus rhythm. Currently in sinus rhythm. Patient does not have any active complaints. REVIEW OF SYSTEMS: CONSTITUTIONAL: Denies having any fevers, chills, or rigors. RESPIRATORY: No cough. No difficulty in breathing. CARDIAC: No chest pain or palpitations. GI: No nausea, vomiting, or diarrhea. : No dysuria or hematuria. Patient's medications have been reviewed. On examination, patient's vitals: Temperature 98.9, heart rate 50, respiratory rate 16, blood pressure 111/55, saturating at 96% on room air GENERAL EXAMINATION: Patient appears to be appropriate for her age, in no acute distress. HEAD: Atraumatic and normocephalic. EYES: Pupils equal, round and reactive to light. NECK: No JVD. No thyromegaly. CARDIOVASCULAR: S1, S2 heard. Regular rate and rhythm. Positive for systolic murmur. LUNGS: Bilateral breath sounds are positive. No wheeze or crackles. ABDOMEN: Soft, nontender. Bowel sounds positive. EXTREMITIES: No edema. No cyanosis. Peripheral pulses are felt. CHAIN MAKER MACHINE: Alert, awake, oriented x3. No focal neurological deficits. SKIN: No rash. PSYCHIATRY: Appropriate mood and affect. Patient's labs: White count of 7.6, hemoglobin 10.1, platelets to 237. Sodium 135, potassium 4.5, chloride 102, bicarb 26, BUN 21, creatinine 0.80. ASSESSMENT AND PLAN: 1. Fall secondary to regular heart rate. 2. Atrial fibrillation with rapid ventricular response at the time of admission. 3. Diabetes mellitus. 4. Hypertension. 5. History of coronary artery disease. 6. Hyperlipidemia. 7. History of stroke/transient ischemic attack in the past. 8. Hyperlipidemia. PLAN: The patient did convert into sinus rhythm yesterday. Currently on p.o. Amiodarone and Eliquis for anticoagulation as per cardio recommendations. 2-D echo currently pending. Continue with the rest of her home medication regimen. Patient had PT, OT who recommended rehab, so we will check with social group worker for possible rehab placement tomorrow.
[2016-08-18 11:31] LABS: Glucose,Whole Blood 184 mg/dL (75-99)
[2016-08-18 11:42] VITALS: BP 136/68; PULSE 60; TEMP 97.2
[2016-08-18] MEDS: MULTIVITAMINS, THERA 1 EACH TAB PO SCH (12:52)
--- NOTE | 2016-08-18 14:56 | DS ---
DATE OF ADMISSION: 08/14/2016 DATE OF DISCHARGE: 08/18/2016 DISCHARGE MEDICATIONS: 1. Eliquis 2.5 mg b.i.d. 2. Amiodarone 200 mg t.i.d. 3. Continue Lipitor 80 once daily. 4. Continue metformin 850/15 one daily. 5. Continue Zebeta 5 mg b.i.d. 6. Multivitamin 1 daily. 7. Colace 100 mg 1 daily. 8. Vitamin D 1000 units daily. 9. Aspirin 325 one daily. 10. Amoxicillin 500 p.o. t.i.d. for 5 more days. 11. Will go ahead and hold the Actos part of metformin and just continue metformin at 500 b.i.d. HOSPITAL COURSE: Allison Flores is a pleasant 86-year-old white female who was admitted to the hospital through the emergency department. She had a final diagnosis of: 1. Fall secondary to atrial fibrillation. 2. Atrial fibrillation with rapid ventricular response. 3. Diabetes. 4. Hypertension. 5. Coronary artery disease. 6. Recent stroke with recent hospitalization. 7. Hyperlipidemia. Patient was admitted with the above diagnoses. She was seen by Cardiology. She was not doing too bad with her recent stroke. Patient converted into sinus rhythm during her stay with p.o. amiodarone and she was placed on Eliquis for anticoagulation. Plavix was discontinued but she was not quite 100% due to her recent stroke. We thought patient would benefit from inpatient rehab. PLAN: Inpatient rehab to improve patient's function, ADL's and strengthening, Speech Therapy and post-stroke therapy from previous admission. At this time, I felt we should stop the Actos portion of Actos plus met and continue metformin as long as her kidney functions are stable. This will probably be discontinued in the near future because of advancing age. Continue to follow patient's overall progress.
--- NOTE | 2016-08-18 15:00 | P.PN ---
Subjective Principal diagnosis: A. fib This is an 86-year-old female with history of diabetes, hyperlipidemia , paroxysmal A. fib, intracranial bleed, TIA, who presented to the hospital after she experienced a fall at home. Troponin came back to be marginally elevated, patient was also found to be in atrial fibrillation with rapid ventricular response. She was seen in consultation yesterday by Dr. Interiano it was not felt that the patient had an acute [place], that the troponins were likely elevated to oxygen supply and demand mismatch. At the time of her examination today she continues to be in atrial fibrillation with a heart rate in the 60s. We will decrease amiodarone to 200 mg one tablet by mouth 3 times a day decrease metoprolol tartrate 25 mg twice a day and continue current dose of Eliquis 2-1/2 mg one tablet by mouth twice a day. Hemoglobin this morning 10.6. Arrangements are being made for temporary rehab post discharge from the hospital. 08/18/2016 Patient seen and examined this morning, currently in a normal sinus rhythm. Anticipating discharge home today. On Eliquis. Objective - Vital Signs Vital signs: Vital Signs Temp 97.2 F L 08/18/16 11:41 Pulse 60 08/18/16 11:41 Resp 18 08/18/16 11:41 BP 136/68 08/18/16 11:41 Pulse Ox 96 08/18/16 11:41 Intake & Output 08/17/16 08/18/16 08/18/16 18:59 06:59 18:59 Intake Total 300 300 600 Output Total 300 Balance 300 300 300 Weight 80.1 kg Intake: Oral 300 300 600 Output: Urine 300 Other: Voiding Method Toilet Toilet # Voids 2 1 2 - Exam PHYSICAL EXAMINATION: HEENT: Head is atraumatic, normocephalic. Pupils equal, round. Neck is supple. There is no elevated jugular venous pressure. HEART EXAMINATION: S1 and S2 normal a systolic murmur is heard. CHEST EXAMINATION: Lungs are clear to auscultation and precussion. No chest wall tenderness is noted on palpation or with deep breathing. ABDOMEN: Soft, nontender. Bowel sounds are heard. No organomegaly noted. EXTREMITIES:[ 2+ peripheral pulses with no evidence of peripheral edema and no calf tenderness noted]. NEUROLOGIC [patient is awake, alert and oriented -3.] . - Labs CBC & Chem 7: 08/17/16 05:34 08/17/16 05:34 Labs: Abnormal Lab Results - Last 24 Hours (Table) 08/17/16 08/17/16 08/18/16 Range/Units 16:52 21:10 05:58 POC Glucose (mg/dL) 147 H 203 H 158 H (75-99) mg/dL 08/18/16 Range/Units 11:28 POC Glucose (mg/dL) 184 H (75-99) mg/dL Assessment and Plan (1) AF (paroxysmal atrial fibrillation) Status: Acute (2) Atrial fibrillation with RVR Status: Acute (3) Aortic stenosis Status: Acute (4) CVA (cerebral vascular accident) Status: Acute (5) Mitral stenosis Status: Acute (6) TIA (transient ischemic attack) Status: Acute (7) Diabetes Status: Chronic (8) Hyperlipidemia Status: Chronic (9) Hypertension Status: Chronic Plan: From cardiology's perspective, she may be able to be discharged home once cleared by the primary. We will make her a follow-up appointment in the office with Dr. Interiano post discharge. DNP note has been reviewed, I agree with a documented findings and plan of care. Patient was seen and examined.
--- NOTE | 2016-08-18 15:31 | P.PN ---
Progress Note - Text This is an addendum to the progress note dictated earlier today. Patient has as an outpatient been told to have moderate to severe aortic stenosis and was scheduled to see a cardiothoracic surgeon in the [place] area for possible TAVR procedure. Echocardiogram with Doppler study performed July 21 of this year revealed an ejection fraction of 65-70% with evidence of moderate to severe aortic stenosis, with a peak mean pressure gradient of 82 mg of mercury over 46 mg of mercury.. DNP note has been reviewed, I agree with a documented findings and plan of care. Patient was seen and examined.
== END 2016-08-18 15:25 | DRG 309 ==
LOC: EC 15:49 → 6SEL 17:36
PROVIDERS: ADMIT Family Medicine; ATTEND Family Medicine
DX: I48.0 Paroxysmal atrial fibrillation (principal); I24.8 Other forms of acute ischemic heart disease; E11.9 Type 2 diabetes mellitus without complications; I10 Essential (primary) hypertension; I08.0 Rheumatic disorders of both mitral and aortic valves; E78.5 Hyperlipidemia, unspecified; I25.10 Atherosclerotic heart disease of native coronary artery without angina pectoris; W01.0XXA Fall on same level from slipping, tripping and stumbling without subsequent striking against object, initial encounter; Y92.009 Unspecified place in unspecified non-institutional (private) residence as the place of occurrence of the external cause; Z79.01 Long term (current) use of anticoagulants; Z79.02 Long term (current) use of antithrombotics/antiplatelets; Z79.82 Long term (current) use of aspirin; Z79.899 Other long term (current) drug therapy; Z82.49 Family history of ischemic heart disease and other diseases of the circulatory system; Z86.73 Personal history of transient ischemic attack (TIA), and cerebral infarction without residual deficits; Z91.040 Latex allergy status; Z88.2 Allergy status to sulfonamides; Z79.84 Long term (current) use of oral hypoglycemic drugs
CPT/HCPCS: 36415; 70450; 71020; 80048; 80053; 80061; 82550; 82553; 83735; 84439; 84443; 84481; 84484; 85025; 85027; 85049; 85610; 85730; 93005; 96361; 96365; 96368; 96376; 99291

== ENCOUNTER → 2016-10-27 | Outpatient (CLI) | payer MEDICARE, BC | END | disposition home or self-care (01) | LOC: LABWHC1 11:59 | PROVIDERS: ATTEND Internal Medicine Cardiovascular Disease | DX: I48.0 Paroxysmal atrial fibrillation (principal) | CPT/HCPCS: 36415; 84443; 84450; 84460 ==

== ENCOUNTER 2016-11-19 10:39 | Emergency (ER) | payer MEDICARE, BC ==
--- NOTE | 2016-11-19 11:26 | ED ---
General Adult HPI - General Chief complaint: Fall Stated complaint: Fall Time Seen by Provider: 11/19/16 11:03 Source: patient, RN notes reviewed, old records reviewed Mode of arrival: ambulatory Limitations: no limitations - History of Present Illness Initial comments: This is a 6-year-old female ER for evaluation. Patient with a for evaluation regarding follow-up. Patient a fall possible follow during breakfast today. Patient is on blood thinners, Alquist. Patient denies loss of consciousness, was nonambulatory at home. Family members arrived patient's health she was underneath and to pick himself up into a chair. Patient denies headache denies chest pain denies any specific complaints. Denies loss of consciousness. Denies hip pain. Family states patient is recently Genther on Alquist. The also say patient has a getting injections for bleeding. - Related Data Home Medications Medication Instructions Recorded Confirmed Bisoprolol Fumarate [Zebeta] 5 mg PO BID 08/13/15 11/19/16 Cholecalciferol [Vitamin D3] 1,000 unit PO DAILY 07/20/16 11/19/16 Docusate [Colace] 100 mg PO DAILY PRN 07/20/16 11/19/16 Multivitamins, Thera [Multivitamin 1 tab PO DAILY 07/20/16 11/19/16 (formulary)] Amiodarone [Cordarone] 200 mg PO DAILY 11/19/16 11/19/16 Aspirin EC [Ecotrin Low Dose] 81 mg PO DAILY 11/19/16 11/19/16 Atorvastatin [Lipitor] 80 mg PO HS 11/19/16 11/19/16 Previous Rx's Medication Instructions Recorded Apixaban [Eliquis] 2.5 mg PO BID #60 tab 08/18/16 metFORMIN HCL [Metformin HCl] 500 mg PO AC-BID #60 tablet 08/18/16 Allergies Allergy/AdvReac Type Severity Reaction Status Date / Time latex Allergy Rash/Hives Verified 11/19/16 11:08 Sulfa (Sulfonamide Allergy Unknown Verified 11/19/16 11:08 Antibiotics) Review of Systems ROS Statement: Those systems with pertinent positive or pertinent negative responses have been documented in the HPI. ROS Other: All systems not noted in ROS Statement are negative. Past Medical History Past Medical History: Coronary Artery Disease (CAD), CVA/TIA, Dementia, Diabetes Mellitus, Hyperlipidemia, Hypertension, Myocardial Infarction ([place]) Additional Past Medical History / Comment(s): Prolapsed mitral valve, "leaky" aortic valve, left sided weakness from stroke in July 2016. Last Myocardial Infarction Date:: 2006? History of Any Multi-Drug Resistant Organisms: None Reported Past Surgical History: Hysterectomy Additional Past Surgical History / Comment(s): angioplasty Past Anesthesia/Blood Transfusion Reactions: No Reported Reaction Past Psychological History: No Psychological Hx Reported Smoking Status: Never smoker Past Alcohol Use History: None Reported Past Drug Use History: None Reported General Exam Limitations: no limitations Course Vital Signs 11/19/16 10:43 Temperature 97.0 F L Pulse Rate 39 L Respiratory 18 Rate Blood Pressure 153/65 O2 Sat by Pulse 98 Oximetry - Reevaluation(s) Reevaluation #1: 11/19/16 12:43 Patient remains asymptomatic EKG Findings - EKG Comments: EKG Findings:: EKG shows sinus bradycardia rate of 46, OK 194, QRS 86, QTC 497 Medical Decision Making - Medical Decision Making A 69 year status post fall follow-up is mechanical in nature. At this point patient is a symptomatically studies are negative and patient can be discharged home - Radiology Data Radiology results: report reviewed (CT brain C-spine and facial bones, chest and pelvis x-ray negative for traumatic injury), image reviewed Disposition Clinical Impression: Fall Disposition: HOME SELF-CARE Condition: Good Instructions: Fall Prevention for Older Adults (ED) Referrals: Gregorio Rivera DO [Primary Care Provider] - 1-2 days
--- NOTE | 2016-11-19 12:08 | XR ---
EXAMINATION TYPE: XR chest 1V DATE OF EXAM: 11/19/2016 HISTORY: Shortness of breath. COMPARISON: 08/14/2016 TECHNIQUE: Single view of the chest is submitted. FINDINGS: Demonstrated are scattered senescent parenchymal change. There is no evidence for focal infiltrate. The heart is enlarged Hilar and mediastinal structures are within normal limits. Degenerative changes are seen of the dorsal spine. IMPRESSION: 1. Chronic changes without evidence for acute pulmonary disease.
--- NOTE | 2016-11-19 12:12 | CT ---
EXAMINATION TYPE: CT brain glenna simms DATE OF EXAM: 11/19/2016 COMPARISON: 08/14/2016 HISTORY: 86-year-old female fell yesterday/pt is unsteady. Offers no other complaints. Pain. CT DLP: 1905.90 mGycm Automated exposure control for dose reduction was used. Technique: Examination of the head was done in axial plane without intravenous contrast. Coronal and sagittal reconstructions performed. CT of the cervical spine was obtained in axial plane without intravenous injection of contrast mater ial. Coronal and sagittal reformatted images were obtained from the axial views for evaluation of f ractures, spinal alignment and canal. FINDINGS: Head: There is no evidence of acute intracranial hemorrhage, acute ischemic changes, mass, mass-effect, or extra-axial fluid collection. There is no effacement of cerebral sulci or basal subarachnoid cister ns. There is no hydrocephalus. There is no midline shift. Vela-white matter distinction is preserv ed. Questionable very mild posterior scalp swelling. No underlying calvarial fracture. There is mild generalized supratentorial volume loss especially central cerebral atrophy. Moderate pa tchy periventricular and deep white matter hypodensities are unchanged and likely relate to chronic s mall vessel ischemic disease. Trace mucosal thickening within the left maxillary sinus. Mastoid air cells well pneumatized. Orbits will be reported separately. Cervical spine: No craniocervical junction anomaly, predental space widening, or prevertebral soft tissue swelling. Normal alignment of the cervical spine though it moderate to severe discussion plate degenerative johnnie nge especially in the mid to lower cervical spine with corresponding facet and uncovertebral joint ar thropathy. Disc osteophyte complexes cause variable mild narrowing of the spinal canal particularly at C6/C7 and then at C5-C6. Assessment of the spinal canal especially at C7-T1 and below is limited due to artifa ct from the patient's shoulders. Variable moderate multilevel neuroforaminal stenoses throughout. Sagittal and coronal reformatted images confirm above findings. COMBINED IMPRESSION: 1. There may be mild posterior scalp swelling. No acute intracranial abnormality seen. Similar mild a trophy and moderate changes of chronic small vessel ischemic disease. 2. No acute fracture or malalignment of the cervical spine. Moderate to advanced multilevel spondylot ic change. 3. Orbits will be reported separately.
--- NOTE | 2016-11-19 12:14 | XR ---
EXAMINATION TYPE: XR pelvis AP view DATE OF EXAM: 11/19/2016 CLINICAL HISTORY: pain TECHNIQUE: Single view the pelvis is submitted. FINDINGS: No evidence for fracture, dislocation or bony lesion. Joint spaces are well-preserved. S I joints appear symmetric. IMPRESSION: 1. No acute fracture or dislocation seen. ICD 10 NO FRACTURE, INITIAL EVALUATION
--- NOTE | 2016-11-19 12:28 | CT ---
EXAMINATION TYPE: CT orbits wo con DATE OF EXAM: 11/19/2016 COMPARISON: CT brain same date HISTORY: pt fell yesterday/pt is unsteady. Trauma CT DLP: 423.0 mGycm Automated exposure control for dose reduction was used. Helical acquisition through the orbits. FINDINGS: Some mild inflammatory change present within the maxillary sinus, there may be a polyp on the left. C oncha bullosa present bilaterally. Orbits are intact. There is a symmetric appearance. Cerebral vascu lar calcifications are present. IMPRESSION: NO EVIDENT FRACTURE OR DISLOCATION.
[2016-11-19 13:06] VITALS: BP 158/67; PULSE 44; RESP 20; TEMP 98.4
== END 2016-11-19 13:08 | disposition home or self-care (01) ==
LOC: EC 10:39
DX: Z04.3 Encounter for examination and observation following other accident (principal); I25.10 Atherosclerotic heart disease of native coronary artery without angina pectoris; E11.9 Type 2 diabetes mellitus without complications; E78.5 Hyperlipidemia, unspecified; I10 Essential (primary) hypertension; I25.2 Old myocardial infarction; F03.90 Unspecified dementia, unspecified severity, without behavioral disturbance, psychotic disturbance, mood disturbance, and anxiety; Z86.73 Personal history of transient ischemic attack (TIA), and cerebral infarction without residual deficits; Z79.82 Long term (current) use of aspirin; Z79.899 Other long term (current) drug therapy; Z88.2 Allergy status to sulfonamides; Z91.040 Latex allergy status; W19.XXXA Unspecified fall, initial encounter
CPT/HCPCS: 70450; 70480; 71010; 72125; 72170; 93005; 99284

== ENCOUNTER 2016-12-20 18:18 | Emergency (ER) | payer MEDICARE, BC ==
--- NOTE | 2016-12-20 18:55 | ED ---
General Adult HPI - General Chief complaint: Fall Stated complaint: fall, head injury Time Seen by Provider: 12/20/16 18:42 Source: patient, family, RN notes reviewed, old records reviewed Mode of arrival: wheelchair Limitations: no limitations - History of Present Illness Initial comments: Chief complaint history of present illness is a 6-year-old female here with her daughter. The patient reports that she is getting out of her easy chair when she stood up she stumbled because of her right leg giving out she fell forward bumping her head on her walker. She presents with bruising to her for it. Denies any loss of consciousness. The patient is on blood thinners. Patient denies any other significant injury to the rest of the body though she's had persistent discomfort to the right groin area for several weeks. - Related Data Home Medications Medication Instructions Recorded Confirmed Bisoprolol Fumarate [Zebeta] 5 mg PO BID 08/13/15 12/20/16 Cholecalciferol [Vitamin D3] 1,000 unit PO DAILY 07/20/16 12/20/16 Docusate [Colace] 100 mg PO Q48H PRN 07/20/16 12/20/16 Multivitamins, Thera [Multivitamin 1 tab PO DAILY 07/20/16 12/20/16 (formulary)] Amiodarone [Cordarone] 200 mg PO DAILY 11/19/16 12/20/16 Aspirin EC [Ecotrin Low Dose] 81 mg PO DAILY 11/19/16 12/20/16 Atorvastatin [Lipitor] 80 mg PO HS 11/19/16 12/20/16 Previous Rx's Medication Instructions Recorded Apixaban [Eliquis] 2.5 mg PO BID #60 tab 08/18/16 metFORMIN HCL [Metformin HCl] 500 mg PO AC-BID #60 tablet 08/18/16 Allergies Allergy/AdvReac Type Severity Reaction Status Date / Time latex Allergy Rash/Hives Verified 12/20/16 19:13 Sulfa (Sulfonamide AdvReac Nausea & Verified 12/20/16 19:13 Antibiotics) Vomiting Review of Systems ROS Statement: Those systems with pertinent positive or pertinent negative responses have been documented in the HPI. Review of systems denies any headache. No change in visual acuity she recently had an injection in the left eye. The left pupil slightly larger than the right pupil again recently had an injection in the left eye. Denies any bloody nose denies neck pain denies chest pain shortness breath or GI/ problems. All systems were reviewed. Past medical problems significant for coronary artery disease, previous TIA, dementia, diabetes mellitus, hyperlipidemia, hypertension, previous [place] and prolapsed mitral valve. Surgeries include angioplasty and hysterectomy. Nonsmoker nondrinker. Family history noncontributory. She has ALLERGIES to latex and sulfa. ROS Other: All systems not noted in ROS Statement are negative. Past Medical History Past Medical History: Coronary Artery Disease (CAD), CVA/TIA, Dementia, Diabetes Mellitus, Hyperlipidemia, Hypertension, Myocardial Infarction ([place]) Additional Past Medical History / Comment(s): Prolapsed mitral valve, "leaky" aortic valve, left sided weakness from stroke in July 2016, [facility] Last Myocardial Infarction Date:: 2006? History of Any Multi-Drug Resistant Organisms: None Reported Past Surgical History: Hysterectomy Additional Past Surgical History / Comment(s): angioplasty Past Anesthesia/Blood Transfusion Reactions: No Reported Reaction Past Psychological History: No Psychological Hx Reported Smoking Status: Never smoker Past Alcohol Use History: None Reported Past Drug Use History: None Reported General Exam - General Exam Comments Initial Comments: General: The patient is awake and alert, in no distress, and does not appear acutely ill. Vital signs temperature 99.7 pulse 52 respiratory rate 20 pulse ox 94% on room air blood pressure 157/70 Eye: Left pupil slightly larger than the right pupil. The patient recently had an injection in the left eye. No change in visual acuity. Ears, nose, mouth and throat: There are moist mucous membranes , no complaint of any chipped teeth. Neck: The neck is supple, there is no tenderness . Cardiovascular: There is a regular rate and rhythm. Loud systolic murmur heard across the entire precordium. Respiratory: Lungs are clear to auscultation, respirations are non-labored, breath sounds are equal. No wheezes, stridor, rales, or rhonchi. Gastrointestinal: Soft, non-distended, non-tender abdomen without masses or organomegaly noted. There is no rebound or guarding present. No complaint of back pain or CVA pain. Back: No complaint of back pain. Musculoskeletal: Able to move upper and lower extremities without difficulty. Chronic right shoulder discomfort nothing new since recent injuries. Neurovascular status to the feet intact. Neurological: No focal or lateralizing findings Skin: Skin is warm and dry and no rashes or lesions are noted. Limitations: no limitations Course Vital Signs 12/20/16 18:32 Temperature 99.7 F H Pulse Rate 52 L Respiratory 20 Rate Blood Pressure 157/70 O2 Sat by Pulse 94 L Oximetry Medical Decision Making - Medical Decision Making X-ray of the pelvis is done and reviewed by radiologist. His final impression is osteopenia without acute osseous abnormality seen. As read by Dr. Harris CT of the brain and C-spine was done and reviewed by radiologist. The entire report was reviewed. The radiologist's findings include. There is no evidence of acute intracranial hemorrhage, acute ischemic changes, mass, mass effect, or extra-axial fluid collection. There is no effacement of cerebral sulci of basal subarachnoid sisters. There is no hydrocephalus. There is no midline shift. Garcia-white matter distinction is preserved. There is mild right frontal hematoma without underlying calvarial fracture. Trace mucosal thickening within the visualized maxillary sinus. Mastoid air cells are pneumatized. Orbits and globes are intact. Cervical spine no acute fracture of the cervical spine. Degenerative grade 1 anterolisthesis of C4-C5 and C7-T1 with moderate to advanced multilevel spondylotic changes. As read by Dr. Harris The patient remains neurologically alert. She'll be discharged with her daughter. Advised follow-up with family physician. Ice to her forehead. Tylenol for discomfort. Disposition Clinical Impression: Contusion of forehead Disposition: HOME SELF-CARE Condition: Fair Instructions: Fall Prevention for Older Adults (ED), Contusion in Adults (ED) Additional Instructions: Put ice again on and off to the forehead. In the other areas of hurt. Follow- up with family physician. Referrals: Gregorio Rivera DO [Primary Care Provider] - 1-2 days Time of Disposition: 20:17
--- NOTE | 2016-12-20 19:45 | XR ---
EXAMINATION TYPE: XR pelvis AP view DATE OF EXAM: 12/20/2016 COMPARISON: 11/19/2016 HISTORY: 86-year-old female with right groin pain after fall TECHNIQUE: AP view FINDINGS: Degenerative changes lower lumbar spine. Pubic symphysis is intact. SI joints appear intact. There is osteopenia without displaced fracture. Multiple phlebolith in the pelvis. Mild degenerative spurring at the hips. IMPRESSION: Osteopenia without acute osseous abnormality seen.
--- NOTE | 2016-12-20 19:55 | CT ---
EXAMINATION TYPE: CT brain glenna cummins con DATE OF EXAM: 12/20/2016 COMPARISON: 11/19/2016 HISTORY: 86-year-old female Patient fell and hit forehead on walker, contusion at site. Patient denie s head and neck complaint at time of study. On blood thinners. CT DLP: 1183.6 mGycm Automated exposure control for dose reduction was used. Technique: Examination of the head was done in axial plane without intravenous contrast. Coronal and sagittal reconstructions performed. CT of the cervical spine was obtained in axial plane without intravenous injection of contrast mater ial. Coronal and sagittal reformatted images were obtained from the axial views for evaluation of f ractures, spinal alignment and canal. FINDINGS: Head: There is no evidence of acute intracranial hemorrhage, acute ischemic changes, mass, mass-effect, or extra-axial fluid collection. There is no effacement of cerebral sulci or basal subarachnoid cister ns. There is no hydrocephalus. There is no midline shift. Vela-white matter distinction is preserv ed. Mild central cerebral atrophy with mild to moderate patchy periventricular and deep white matter hypo densities, unchanged from prior. There is mild right frontal hematoma without underlying calvarial fracture. Trace mucosal thickening within the visualized maxillary sinuses. Mastoid air cells well pneumatized. Orbits and globes are in tact. Cervical spine: The craniocervical junction abnormality, predental space widening, or prevertebral soft tissue swelli ng. Hypertrophic facet and uncovertebral joint arthropathy throughout with trace grade 1 anterolisthesis at C4-C5 and C7-T1. Disc osteophyte complexes are present associated with moderate to advanced disc/endplate degenerative change. This causes moderate spinal canal stenosis at C6-C7. There are variable moderate neuroforaminal stenoses throughout more severe on the left at C6-C7. No acute fracture of the cervical spine. Sagittal and coronal reformatted images confirm above findings. COMBINED IMPRESSION: 1. Mild right frontal scalp hematoma without underlying calvarial fracture or acute intracranial abno rmality seen. Similar mild central cerebral atrophy and changes of chronic small vessel ischemic dise ase. 2. No acute fracture of the cervical spine. Degenerative grade 1 anterolisthesis at C4-C5 and C7-T1 w ith moderate to advanced multilevel spondylotic change.
[2016-12-20 20:31] VITALS: BP 147/81; PULSE 50; RESP 18; TEMP 98.4
[2016-12-20 20:31] LABS: Glucose,Whole Blood 135 mg/dL (75-99)
== END 2016-12-20 20:36 | disposition home or self-care (01) ==
LOC: EC 18:18
DX: S00.83XA Contusion of other part of head, initial encounter (principal); I25.10 Atherosclerotic heart disease of native coronary artery without angina pectoris; F03.90 Unspecified dementia, unspecified severity, without behavioral disturbance, psychotic disturbance, mood disturbance, and anxiety; E11.9 Type 2 diabetes mellitus without complications; E78.5 Hyperlipidemia, unspecified; I10 Essential (primary) hypertension; I25.2 Old myocardial infarction; Z86.73 Personal history of transient ischemic attack (TIA), and cerebral infarction without residual deficits; Z79.82 Long term (current) use of aspirin; Z79.899 Other long term (current) drug therapy; Z88.2 Allergy status to sulfonamides; Z91.040 Latex allergy status; W18.00XA Striking against unspecified object with subsequent fall, initial encounter
CPT/HCPCS: 36415; 70450; 72125; 72170; 99284

== ENCOUNTER 2017-07-11 10:42 | Emergency (ER) | payer MEDICARE, BC ==
[2017-07-11] MEDS ORDERED: SODIUM CHLORIDE 0.9% 500 ML IV STA (10:45)
--- NOTE | 2017-07-11 10:48 | ED ---
General Adult HPI - General Stated complaint: FALL Time Seen by Provider: 07/11/17 10:42 Source: RN notes reviewed - History of Present Illness Initial comments: This is an 86-year-old female presents emergency Department who presents to the emergency department complaining that she fell down 8 steps. Patient states she did not lose consciousness she did bump her forehead on the carpeted floor. Patient denies any neck pain. Patient denies any extremity pain upper or lower. Patient denies any chest pain back pain or abdominal pain. Patient states she is not had any headache at this time. Patient denies any numbness or weakness. Patient states she does not think she needs to be in the hospital because she has no complaints. Patient states she is on blood thinners but she doesn't know which one. - Related Data Home Medications Medication Instructions Recorded Confirmed Cholecalciferol [Vitamin D3] 1,000 unit PO DAILY 07/20/16 02/22/17 Docusate [Colace] 100 mg PO Q48H 07/20/16 02/22/17 Multivitamins, Thera [Multivitamin 1 tab PO DAILY 07/20/16 02/22/17 (formulary)] Aspirin EC [Ecotrin Low Dose] 81 mg PO DAILY 11/19/16 02/22/17 Atorvastatin [Lipitor] 80 mg PO HS 11/19/16 02/22/17 Cla 1 tab PO DAILY 02/22/17 02/22/17 L.acidoph,Paracasei, B.lactis 1 cap PO Q48H 02/22/17 02/22/17 [Probiotic] Oxybutynin Chloride [Ditropan] 5 mg PO DAILY 02/22/17 02/22/17 Previous Rx's Medication Instructions Recorded Apixaban [Eliquis] 2.5 mg PO BID #60 tab 08/18/16 metFORMIN HCL [Metformin HCl] 500 mg PO AC-BID #60 tablet 08/18/16 Amiodarone [Cordarone] 100 mg PO DAILY #30 tab 12/31/16 Ferrous Sulfate [Iron (65 MG 325 mg PO BID-W/MEALS #60 tab 02/26/17 Elemental)] Allergies Allergy/AdvReac Type Severity Reaction Status Date / Time latex Allergy Rash/Hives Verified 02/22/17 11:29 Sulfa (Sulfonamide AdvReac Nausea & Verified 02/22/17 11:29 Antibiotics) Vomiting Review of Systems ROS Statement: Those systems with pertinent positive or pertinent negative responses have been documented in the HPI. ROS Other: All systems not noted in ROS Statement are negative. Past Medical History Past Medical History: Atrial Fibrillation, Coronary Artery Disease (CAD), CVA/ TIA, Dementia, Diabetes Mellitus, GI Bleed, Hyperlipidemia, Hypertension, Myocardial Infarction ([place]), Osteoarthritis ([place]) Additional Past Medical History / Comment(s): Prolapsed mitral valve, "leaky" aortic valve, left sided weakness from stroke in July 2016, [facility] Last Myocardial Infarction Date:: 2006? History of Any Multi-Drug Resistant Organisms: None Reported Past Surgical History: Hysterectomy Additional Past Surgical History / Comment(s): angioplasty Past Anesthesia/Blood Transfusion Reactions: No Reported Reaction Past Psychological History: No Psychological Hx Reported Smoking Status: Never smoker Past Alcohol Use History: None Reported Past Drug Use History: None Reported General Exam - General Exam Comments Initial Comments: GENERAL: Patient is well-developed and well-nourished. Patient is nontoxic and well- hydrated and is in no acute distress. ENT: Neck is soft and supple. No significant lymphadenopathy is noted. Oropharynx is clear. Moist mucous membranes. Neck has full range of motion without eliciting any pain. EYES: The sclera were anicteric and conjunctiva were pink and moist. Extraocular movements were intact and pupils were equal round and reactive to light. Eyelids were unremarkable. PULMONARY: Unlabored respirations. Good breath sounds bilaterally. No audible rales rhonchi or wheezing was noted. CARDIOVASCULAR: There is a regular rate and rhythm without any murmurs gallops or rubs. Patient has good pulses in all 4 extremities ABDOMEN: Soft and nontender with normal bowel sounds. No palpable organomegaly was noted. There is no palpable pulsatile mass. SKIN: Patient has a superficial abrasion on the forehead and small skin tears to both hands NEUROLOGIC: Patient is alert and oriented x3. Cranial nerves II through XII are grossly intact. Motor and sensory are also intact. Normal speech, volume and content. Symmetrical smile. MUSCULOSKELETAL: Normal extremities with adequate strength and full range of motion. No lower extremity swelling or edema. No calf tenderness. LYMPHATICS: No significant lymphadenopathy is noted PSYCHIATRIC: Normal psychiatric evaluation. Medical Decision Making - Medical Decision Making EKG shows normal sinus rhythm at 67 bpm ID interval 180 QRS is 94 Q-T intervals 414 QTC is 437. Patient's EKG shows no ST segment elevation or depression no T- wave abnormalities noted. Patient does have Q waves in leads [address] of the brain and C-spine are negative. Chest x-ray shows no acute abnormality. Pelvis x-ray shows no acute normalities. Patient continues to have no complaints patient will be discharged home to follow-up as needed. - Lab Data Result diagrams: 07/11/17 10:53 07/11/17 10:53 Lab Results 07/11/17 07/11/17 07/11/17 Range/Units 10:48 10:53 10:53 WBC 6.9 (3.8-10.6) k/uL RBC 4.23 (3.80-5.40) m/uL Hgb 11.6 (11.4-16.0) gm/dL Hct 35.0 (34.0-46.0) % MCV 82.7 (80.0-100.0) fL MCH 27.3 (25.0-35.0) pg MCHC 33.0 (31.0-37.0) g/dL RDW 17.5 H (11.5-15.5) % Plt Count 235 (150-450) k/uL Neutrophils % 68 % Lymphocytes % 22 % Monocytes % 7 % Eosinophils % 1 % Basophils % 1 % Neutrophils # 4.7 (1.3-7.7) k/uL Lymphocytes # 1.5 (1.0-4.8) k/uL Monocytes # 0.5 (0-1.0) k/uL Eosinophils # 0.1 (0-0.7) k/uL Basophils # 0.0 (0-0.2) k/uL Anisocytosis Slight PT (9.0-12.0) sec INR (<1.2) APTT (22.0-30.0) sec Sodium 141 (137-145) mmol/L Potassium 4.8 (3.5-5.1) mmol/L Chloride 102 (98-107) mmol/L Carbon Dioxide 24 (22-30) mmol/L Anion Gap 15 mmol/L BUN 24 H (7-17) mg/dL Creatinine 0.88 (0.52-1.04) mg/dL Est GFR (CKD-EPI)AfAm 69 (>60 ml/min/1.73 sqM) Est GFR (CKD-EPI)NonAf 60 (>60 ml/min/1.73 sqM) Glucose 93 (74-99) mg/dL POC Glucose (mg/dL) 104 H (75-99) mg/dL POC Glu Deep Tissue Massage Therapist ID Charla Menon Plasma Lactic Acid Fran (0.7-2.0) mmol/L Calcium 9.4 (8.4-10.2) mg/dL Total Bilirubin 0.7 (0.2-1.3) mg/dL AST 24 (14-36) U/L ALT 29 (9-52) U/L Alkaline Phosphatase 59 (38-126) U/L Total Creatine Kinase (30-135) U/L CK-MB (CK-2) (0.0-2.4) ng/mL CK-MB (CK-2) Rel Index Troponin I (0.000-0.034) ng/mL Total Protein 6.3 (6.3-8.2) g/dL Albumin 3.9 (3.5-5.0) g/dL Amylase 72 (30-110) U/L Lipase 170 (23-300) U/L Serum Alcohol <10 mg/dL Blood Type Blood Type Recheck Antibody Screen Spec Expiration Date 07/11/17 07/11/17 07/11/17 Range/Units 10:53 10:53 10:53 WBC (3.8-10.6) k/uL RBC (3.80-5.40) m/uL Hgb (11.4-16.0) gm/dL Hct (34.0-46.0) % MCV (80.0-100.0) fL MCH (25.0-35.0) pg MCHC (31.0-37.0) g/dL RDW (11.5-15.5) % Plt Count (150-450) k/uL Neutrophils % % Lymphocytes % % Monocytes % % Eosinophils % % Basophils % % Neutrophils # (1.3-7.7) k/uL Lymphocytes # (1.0-4.8) k/uL Monocytes # (0-1.0) k/uL Eosinophils # (0-0.7) k/uL Basophils # (0-0.2) k/uL Anisocytosis PT 10.6 (9.0-12.0) sec INR 1.1 (<1.2) APTT 25.6 (22.0-30.0) sec Sodium (137-145) mmol/L Potassium (3.5-5.1) mmol/L Chloride (98-107) mmol/L Carbon Dioxide (22-30) mmol/L Anion Gap mmol/L BUN (7-17) mg/dL Creatinine (0.52-1.04) mg/dL Est GFR (CKD-EPI)AfAm (>60 ml/min/1.73 sqM) Est GFR (CKD-EPI)NonAf (>60 ml/min/1.73 sqM) Glucose (74-99) mg/dL POC Glucose (mg/dL) (75-99) mg/dL POC Glu Deep Tissue Massage Therapist ID Plasma Lactic Acid Fran 1.9 (0.7-2.0) mmol/L Calcium (8.4-10.2) mg/dL Total Bilirubin (0.2-1.3) mg/dL AST (14-36) U/L ALT (9-52) U/L Alkaline Phosphatase (38-126) U/L Total Creatine Kinase 54 (30-135) U/L CK-MB (CK-2) 1.9 (0.0-2.4) ng/mL CK-MB (CK-2) Rel Index 3.5 Troponin I <0.012 (0.000-0.034) ng/mL Total Protein (6.3-8.2) g/dL Albumin (3.5-5.0) g/dL Amylase (30-110) U/L Lipase (23-300) U/L Serum Alcohol mg/dL Blood Type Blood Type Recheck Antibody Screen Spec Expiration Date 07/11/17 Range/Units 10:53 WBC (3.8-10.6) k/uL RBC (3.80-5.40) m/uL Hgb (11.4-16.0) gm/dL Hct (34.0-46.0) % MCV (80.0-100.0) fL MCH (25.0-35.0) pg MCHC (31.0-37.0) g/dL RDW (11.5-15.5) % Plt Count (150-450) k/uL Neutrophils % % Lymphocytes % % Monocytes % % Eosinophils % % Basophils % % Neutrophils # (1.3-7.7) k/uL Lymphocytes # (1.0-4.8) k/uL Monocytes # (0-1.0) k/uL Eosinophils # (0-0.7) k/uL Basophils # (0-0.2) k/uL Anisocytosis PT (9.0-12.0) sec INR (<1.2) APTT (22.0-30.0) sec Sodium (137-145) mmol/L Potassium (3.5-5.1) mmol/L Chloride (98-107) mmol/L Carbon Dioxide (22-30) mmol/L Anion Gap mmol/L BUN (7-17) mg/dL Creatinine (0.52-1.04) mg/dL Est GFR (CKD-EPI)AfAm (>60 ml/min/1.73 sqM) Est GFR (CKD-EPI)NonAf (>60 ml/min/1.73 sqM) Glucose (74-99) mg/dL POC Glucose (mg/dL) (75-99) mg/dL POC Glu Deep Tissue Massage Therapist ID Plasma Lactic Acid Fran (0.7-2.0) mmol/L Calcium (8.4-10.2) mg/dL Total Bilirubin (0.2-1.3) mg/dL AST (14-36) U/L ALT (9-52) U/L Alkaline Phosphatase (38-126) U/L Total Creatine Kinase (30-135) U/L CK-MB (CK-2) (0.0-2.4) ng/mL CK-MB (CK-2) Rel Index Troponin I (0.000-0.034) ng/mL Total Protein (6.3-8.2) g/dL Albumin (3.5-5.0) g/dL Amylase (30-110) U/L Lipase (23-300) U/L Serum Alcohol mg/dL Blood Type A Positive Blood Type Recheck No Antibody Screen NEGATIVE Spec Expiration Date 07/14/2017 - 2351 Disposition Clinical Impression: Fall, Head injury Disposition: HOME SELF-CARE Condition: Good Instructions: Fall Prevention for Older Adults (ED), Head Injury (ED) Is patient prescribed a controlled substance at d/c from ED?: No Referrals: Gregorio Rivera DO [Primary Care Provider] - 1-2 days Time of Disposition: 13:11
--- NOTE | 2017-07-11 11:04 | XR ---
EXAMINATION TYPE: XR chest 1V portable DATE OF EXAM: 07/11/2017 HISTORY: trauma. REFERENCE: Previous study dated 02/22/2017. FINDINGS: The heart is mildly enlarged. The lungs are clear. Pleural spaces are clear. IMPRESSION: CARDIOMEGALY.
--- NOTE | 2017-07-11 11:05 | XR ---
EXAMINATION TYPE: XR pelvis AP view , ONE VIEW DATE OF EXAM ORDERED: 07/11/2017 HISTORY: Trauma. COMPARISON: Previous study dated 12/27/2016. FINDINGS: There are degenerative changes in the lower lumbar spine. There are vascular calcification s present. No fracture or other acute osseous lesion is seen. IMPRESSION: 1. NO ACUTE OSSEOUS LESION. 2. DEGENERATIVE CHANGE.
[2017-07-11 11:08] LABS: Anisocytosis Slight; Basophils % (A) 1 %; Eosinophils # (A) 0.1 k/uL (0-0.7); Eosinophils % (A) 1 %; HGB 11.6 gm/dL (11.4-16.0); Lymphocytes # (A) 1.5 k/uL (1.0-4.8); Lymphocytes % (A) 22 %; MCH 27.3 pg (25.0-35.0); MCV 82.7 fL (80.0-100.0); Mean Platelet Volume 7.9; Monocytes # (A) 0.5 k/uL (0-1.0); Monocytes % (A) 7 %; Neutrophils # (A) 4.7 k/uL (1.3-7.7); Neutrophils % (A) 68 %; Platelet Count 235 k/uL (150-450); RBC 4.23 m/uL (3.80-5.40); RDW 17.5 % (11.5-15.5); WBC 6.9 k/uL (3.8-10.6)
[2017-07-11 11:16] LABS: INR 1.1 (<1.2); Partial Thromboplastin Time 25.6 sec (22.0-30.0); Prothrombin Time 10.6 sec (9.0-12.0)
[2017-07-11 11:23] LABS: ALT 29 U/L (9-52); AST 24 U/L (14-36); Albumin 3.9 g/dL (3.5-5.0); Alcohol <10 mg/dL; Alkaline Phosphatase 59 U/L (38-126); Amylase 72 U/L (30-110); Anion Gap 15 mmol/L; Blood Urea Nitrogen 24 mg/dL (7-17); Calcium 9.4 mg/dL (8.4-10.2); Carbon Dioxide 24 mmol/L (22-30); Chloride 102 mmol/L (98-107); Glucose 93 mg/dL (74-99); Lipase 170 U/L (23-300); Potassium 4.8 mmol/L (3.5-5.1); Sodium 141 mmol/L (137-145); Total Bilirubin 0.7 mg/dL (0.2-1.3); Total Protein 6.3 g/dL (6.3-8.2)
[2017-07-11 11:27] LABS: Glucose,Whole Blood 104 mg/dL (75-99)
[2017-07-11 11:27] LABS: Creatine Kinase 54 U/L (30-135)
[2017-07-11 11:40] LABS: Creatine Kinase MB 1.9 ng/mL (0.0-2.4); Troponin I <0.012 ng/mL (0.000-0.034)
--- NOTE | 2017-07-11 12:16 | CT ---
EXAMINATION TYPE: CT brain glenna simms DATE OF EXAM: 07/11/2017 COMPARISON: Previous study dated 12/27/2016. HISTORY: Fall CT DLP: 1891 mGycm Automated exposure control for dose reduction was used. TECHNIQUE: CT scan of the head and cervical spine are performed without contrast. FINDINGS: BRAIN: There are generalized changes of sulcal prominence and ventriculomegaly, compatible with atrop hic change. There is diffuse periventricular white matter lucency, compatible with small vessel ische abdullahi change. There is no acute focal lesion, mass effect or midline shift identified. I do not see luisa dence of intracranial blood. Visualized portions of the paranasal sinuses and mastoids are clear. The bony calvarium is intact. IMPRESSION: 1. NO ACUTE INTRACRANIAL ABNORMALITY. 2. DEGENERATIVE CHANGES. CERVICAL SPINE: There are mild emphysematous changes within the lungs. There is fullness in the left side of the oropharynx. Acute body height and alignment are maintained. Atlantoaxial relationships are maintained. There is degenerative disc disease and hypertrophic spondylosis at C5-6 and C6-7 and to a lesser exte nt at C4-5. There is uncovertebral joint disease at these levels. There is facet arthropathy on the l eft at C2-3 and to a lesser extent on the right and there is facet arthropathy on the right at C4-5 a nd C5-6. No protrusion is identified. No fracture is seen. IMPRESSION: 1. NO ACUTE OSSEOUS LESION. 2. MODERATE DEGENERATIVE CHANGE.
== END 2017-07-11 13:38 | disposition home or self-care (01) ==
LOC: EC 10:42
DX: S61.412A Laceration without foreign body of left hand, initial encounter (principal); S61.411A Laceration without foreign body of right hand, initial encounter; S00.81XA Abrasion of other part of head, initial encounter; I48.91 Unspecified atrial fibrillation; I25.10 Atherosclerotic heart disease of native coronary artery without angina pectoris; E11.9 Type 2 diabetes mellitus without complications; I10 Essential (primary) hypertension; E78.5 Hyperlipidemia, unspecified; I25.2 Old myocardial infarction; M19.90 Unspecified osteoarthritis, unspecified site; Z86.73 Personal history of transient ischemic attack (TIA), and cerebral infarction without residual deficits; Z88.2 Allergy status to sulfonamides; Z91.040 Latex allergy status; Z79.01 Long term (current) use of anticoagulants; Z79.82 Long term (current) use of aspirin; Z79.84 Long term (current) use of oral hypoglycemic drugs; Z79.899 Other long term (current) drug therapy; W10.9XXA Fall (on) (from) unspecified stairs and steps, initial encounter; Y93.01 Activity, walking, marching and hiking; Y92.009 Unspecified place in unspecified non-institutional (private) residence as the place of occurrence of the external cause
CPT/HCPCS: 36415; 70450; 71045; 72125; 72170; 80053; 80320; 82150; 82550; 82553; 83605; 83690; 84484; 85025; 85610; 85730; 86850; 86900; 86901; 93005; 99284

== ENCOUNTER 2017-10-25 13:23 | Emergency (ER) | payer MEDICARE, BC ==
[2017-10-25 13:59] VITALS: RESP 18
[2017-10-25] MEDS ORDERED: HYDROcodone/APAP 5-325MG 1 EACH TAB PO STA (15:14)
--- NOTE | 2017-10-25 15:18 | ED ---
General Adult HPI - General Chief complaint: Extremity Injury, Lower Stated complaint: R Knee/ hip pain Time Seen by Provider: 10/25/17 15:01 Source: patient, family Mode of arrival: wheelchair Limitations: no limitations - History of Present Illness Initial comments: Patient is an 87-year-old female presenting for right hip pain and right knee pain. Patient states that the pain is been present for the last 3 weeks and feels constant and achy sensation radiating from the right hip to the right knee. She denies any falls and daughters at bedside and states that she has a medical alert which detects falls and that also did not alert them for any falls. She states that she thinks that this may be secondary to her having to sleep on her right side and right hip because of pain in her left hip. She is seen her PCP and they told her that this is secondary to arthritis. She also cannot take NSAIDs because of other comorbidities. She states that she does have an appointment with orthopedics on Thursday. Lastly, family states that the patient has not fell but her right knee has buckled. She denies any neurosensory deficits in the leg. - Related Data Home Medications Medication Instructions Recorded Confirmed Cholecalciferol [Vitamin D3] 1,000 unit PO DAILY 07/20/16 02/22/17 Docusate [Colace] 100 mg PO Q48H 07/20/16 02/22/17 Multivitamins, Thera [Multivitamin 1 tab PO DAILY 07/20/16 02/22/17 (formulary)] Aspirin EC [Ecotrin Low Dose] 81 mg PO DAILY 11/19/16 02/22/17 Atorvastatin [Lipitor] 80 mg PO HS 11/19/16 02/22/17 Cla 1 tab PO DAILY 02/22/17 02/22/17 L.acidoph,Paracasei, B.lactis 1 cap PO Q48H 02/22/17 02/22/17 [Probiotic] Oxybutynin Chloride [Ditropan] 5 mg PO DAILY 02/22/17 02/22/17 Previous Rx's Medication Instructions Recorded Apixaban [Eliquis] 2.5 mg PO BID #60 tab 08/18/16 metFORMIN HCL [Metformin HCl] 500 mg PO AC-BID #60 tablet 08/18/16 Amiodarone [Cordarone] 100 mg PO DAILY #30 tab 12/31/16 Ferrous Sulfate [Iron (65 MG 325 mg PO BID-W/MEALS #60 tab 02/26/17 Elemental)] Allergies Allergy/AdvReac Type Severity Reaction Status Date / Time latex Allergy Rash/Hives Verified 10/25/17 13:59 Sulfa (Sulfonamide AdvReac Nausea & Verified 10/25/17 13:59 Antibiotics) Vomiting Review of Systems ROS Statement: Those systems with pertinent positive or pertinent negative responses have been documented in the HPI. Constitutional: Negative for chills, fatigue and fever. HENT: Negative for congestion. Respiratory: Negative for chest tightness, shortness of breath and wheezing. Negative for cough Cardiovascular: Negative for chest pain and palpitations. Gastrointestinal: Negative for abdominal pain. Negative for abdominal distention , diarrhea, nausea and vomiting. Genitourinary: Negative for dysuria. Musculoskeletal: Negative for back pain, neck pain and neck stiffness. Positive for right knee pain and right hip pain Skin: Negative for color change. Neurological: Negative for dizziness, speech difficulty, weakness and light- headedness. Psychiatric/Behavioral: Negative for agitation and confusion. Negative for anxiety ROS Other: All systems not noted in ROS Statement are negative. Past Medical History Past Medical History: Atrial Fibrillation, Coronary Artery Disease (CAD), CVA/ TIA, Dementia, Diabetes Mellitus, GI Bleed, Hyperlipidemia, Hypertension, Myocardial Infarction ([place]), Osteoarthritis (OA) Additional Past Medical History / Comment(s): Prolapsed mitral valve, "leaky" aortic valve, left sided weakness from stroke in July 2016, [facility] Last Myocardial Infarction Date:: 2006? History of Any Multi-Drug Resistant Organisms: None Reported Past Surgical History: Hysterectomy Additional Past Surgical History / Comment(s): angioplasty Past Anesthesia/Blood Transfusion Reactions: No Reported Reaction Past Psychological History: No Psychological Hx Reported Smoking Status: Never smoker Past Alcohol Use History: None Reported Past Drug Use History: None Reported General Exam - General Exam Comments Initial Comments: Constitutional: Pt is oriented to person, place, and time. Pt appears well- developed and well-nourished. No distress. HENT: Head: Normocephalic and atraumatic. Eyes: EOM are normal. Neck: Normal range of motion. Neck supple. Cardiovascular: Normal rate, regular rhythm, S1 normal, S2 normal and normal heart sounds. Exam reveals no gallop and no friction rub. 2+ systolic murmur Pulmonary/Chest: Effort normal and breath sounds normal. No tachypnea and no bradypnea. No respiratory distress. No wheezes or rales noted. Abdominal: Soft. Bowel sounds are normal. Pt exhibits no shifting dullness, no distension, no pulsatile liver, no fluid wave, no abdominal bruit and no ascites. There is no tenderness. There is no rigidity, no rebound, no guarding, no tenderness at McBurney's point and negative Lozano's sign. Musculoskeletal: Normal range of motion of the right knee. No tenderness palpation of the right hip or right knee. There is no effusions of the right knee. Muscle strength in bilateral lower extremities are 5 out of 5. There is decreased flexion of the right hip Neurological: Pt is alert and oriented to person, place, and time. No cranial nerve deficit. Skin: Skin is warm and dry. No rash noted. Pt is not diaphoretic. No erythema. No pallor. Psychiatric: Pt has a normal mood and affect. Pt behavior is normal. Thought content normal. Limitations: no limitations Course Vital Signs 10/25/17 10/25/17 13:57 16:30 Temperature 98.7 F 99 F Pulse Rate 87 73 Respiratory 18 18 Rate Blood Pressure 125/64 153/65 O2 Sat by Pulse 98 97 Oximetry Medical Decision Making - Medical Decision Making X-ray showed no evidence of acute pathology but did show chronic arthritis. Because the patient had no falls at home, it was felt that the patient could be safely discharged. She also had good follow-up with orthopedics on Thursday and fall prevention was discussed with family members and there were agreeable to letting patient go home.Explained all diagnostic test results and that we will discharge the patient home and patient is to follow up with PCP in 1-2 days and return to the ED if symptoms worsen. Pt and family are agreeable to plan. Disposition Clinical Impression: Right hip pain, Right knee pain Disposition: HOME SELF-CARE Condition: Good Instructions: Knee Pain (ED) Is patient prescribed a controlled substance at d/c from ED?: No Referrals: Gregorio Rivera DO [Primary Care Provider] - 1-2 days Time of Disposition: 16:15
--- NOTE | 2017-10-25 15:50 | XR ---
EXAMINATION TYPE: XR Hip RT and AP Pelvis DATE OF EXAM: 10/25/2017 COMPARISON: NONE HISTORY: Hip pain TECHNIQUE: A single AP view of the pelvis is obtained. Two views of the right hip are obtained. FINDINGS: The pelvic ring is intact. Proximal right femur is intact. There is small degenerative cyst formation in the right acetabulum. Sacroiliac joints appear intact. IMPRESSION: Mild osteoarthritis. No sign of a fracture.
--- NOTE | 2017-10-25 15:51 | XR ---
EXAMINATION TYPE: XR knee complete RT DATE OF EXAM: 10/25/2017 COMPARISON: NONE HISTORY: Knee pain TECHNIQUE: 3 views FINDINGS: There is some spurring of the patella. I see no fracture nor dislocation. There is vascular calcification. IMPRESSION: No acute abnormality of the right knee.
[2017-10-25 16:31] VITALS: BP 153/65; PULSE 73; TEMP 99
== END 2017-10-25 16:33 | disposition home or self-care (01) ==
LOC: EC 13:23
DX: M25.561 Pain in right knee (principal); M25.551 Pain in right hip; M16.11 Unilateral primary osteoarthritis, right hip; R01.1 Cardiac murmur, unspecified; E78.5 Hyperlipidemia, unspecified; I10 Essential (primary) hypertension; I25.10 Atherosclerotic heart disease of native coronary artery without angina pectoris; H91.90 Unspecified hearing loss, unspecified ear; I25.2 Old myocardial infarction; Z79.82 Long term (current) use of aspirin; Z79.899 Other long term (current) drug therapy; Z88.2 Allergy status to sulfonamides; Z91.040 Latex allergy status; Z86.79 Personal history of other diseases of the circulatory system; Z98.61 Coronary angioplasty status
CPT/HCPCS: 73502; 99283

== ENCOUNTER 2017-12-19 13:37 | Emergency (ER) | payer MEDICARE, BC ==
[2017-12-19 13:46] VITALS: TEMP 97.8
[2017-12-19] MEDS ORDERED: SODIUM CHLORIDE 0.9% 500 ML 500 ML IV STA (14:01)
--- NOTE | 2017-12-19 14:05 | ED ---
General Adult HPI - General Chief complaint: GI Bleed Stated complaint: GI BLeed Time Seen by Provider: 12/19/17 13:40 Source: patient, RN notes reviewed Mode of arrival: EMS Limitations: no limitations - History of Present Illness Initial comments: This is an 87-year-old female presents emergency Department. Patient's was sent in because she had a coffee ground emesis. Patient is a very poor historian and is unable to tell me why she is here. Daughter is not at the bedside but she is requested patient come into the emergency department. EMS stated that they didn't see coffee ground emesis at the house. Patient denies any pain currently patient denies any fever chills. Patient denies any nausea currently. Patient denies headache patient denies numbness weakness. Patient denies any dysuria hematuria urinary frequency. Patient denies any injury or trauma. She states she's on a blood thinner but doesn't know which one - Related Data Home Medications Medication Instructions Recorded Confirmed Cholecalciferol [Vitamin D3] 1,000 unit PO DAILY 07/20/16 12/19/17 Docusate [Colace] 100 mg PO Q48H 07/20/16 12/19/17 Multivitamins, Thera [Multivitamin 1 tab PO DAILY 07/20/16 12/19/17 (formulary)] Atorvastatin [Lipitor] 80 mg PO HS 11/19/16 12/19/17 Cla 1 tab PO DAILY 02/22/17 12/19/17 L.acidoph,Paracasei, B.lactis 1 cap PO Q48H 02/22/17 12/19/17 [Probiotic] Oxybutynin Chloride [Ditropan] 5 mg PO DAILY 02/22/17 12/19/17 Ferrous Sulfate [Iron (65 MG 325 mg PO AC-BID 12/19/17 12/19/17 Elemental)] Pantoprazole Sodium [Protonix] 40 mg PO DAILY@1200 12/19/17 12/19/17 Tolterodine Tartrate [Detrol LA] 4 mg PO DAILY 12/19/17 12/19/17 Previous Rx's Medication Instructions Recorded Apixaban [Eliquis] 2.5 mg PO BID #60 tab 08/18/16 metFORMIN HCL [Metformin HCl] 500 mg PO AC-BID #60 tablet 08/18/16 Amiodarone [Cordarone] 100 mg PO DAILY #30 tab 12/31/16 Allergies Allergy/AdvReac Type Severity Reaction Status Date / Time latex Allergy Rash/Hives Verified 12/19/17 14:04 Sulfa (Sulfonamide AdvReac Nausea & Verified 12/19/17 14:04 Antibiotics) Vomiting Review of Systems ROS Statement: Those systems with pertinent positive or pertinent negative responses have been documented in the HPI. ROS Other: All systems not noted in ROS Statement are negative. Past Medical History Past Medical History: Atrial Fibrillation, Coronary Artery Disease (CAD), CVA/ TIA, Dementia, Diabetes Mellitus, GI Bleed, Hyperlipidemia, Hypertension, Myocardial Infarction ([place]), Osteoarthritis (OA) Additional Past Medical History / Comment(s): Prolapsed mitral valve, "leaky" aortic valve, left sided weakness from stroke in July 2016, [place] Last Myocardial Infarction Date:: 2006? History of Any Multi-Drug Resistant Organisms: None Reported Past Surgical History: Hysterectomy Additional Past Surgical History / Comment(s): angioplasty Past Anesthesia/Blood Transfusion Reactions: No Reported Reaction Past Psychological History: No Psychological Hx Reported Smoking Status: Never smoker Past Alcohol Use History: None Reported Past Drug Use History: None Reported General Exam - General Exam Comments Initial Comments: GENERAL: Patient is well-developed and well-nourished. Patient is nontoxic and well- hydrated and is in no acute distress. ENT: Neck is soft and supple. No significant lymphadenopathy is noted. Oropharynx is clear. Moist mucous membranes. Neck has full range of motion without eliciting any pain. EYES: The sclera were anicteric and conjunctiva were pink and moist. Extraocular movements were intact and pupils were equal round and reactive to light. Eyelids were unremarkable. PULMONARY: Unlabored respirations. Good breath sounds bilaterally. No audible rales rhonchi or wheezing was noted. CARDIOVASCULAR: There is a regular rate and rhythm without any murmurs gallops or rubs. ABDOMEN: Soft and nontender with normal bowel sounds. No palpable organomegaly was noted. There is no palpable pulsatile mass. SKIN: Skin is clear with no lesions or rashes and otherwise unremarkable. NEUROLOGIC: Patient is alert and oriented x3. Cranial nerves II through XII are grossly intact. Motor and sensory are also intact. Normal speech, volume and content. Symmetrical smile. MUSCULOSKELETAL: Normal extremities with adequate strength and full range of motion. No lower extremity swelling or edema. No calf tenderness. LYMPHATICS: No significant lymphadenopathy is noted PSYCHIATRIC: Normal psychiatric evaluation. Limitations: no limitations Course Vital Signs 12/19/17 12/19/17 12/19/17 13:43 14:11 15:22 Temperature 97.8 F Pulse Rate 92 89 78 Respiratory 16 16 18 Rate Blood Pressure 125/63 114/62 121/66 O2 Sat by Pulse 97 99 99 Oximetry Medical Decision Making - Medical Decision Making EKG shows normal sinus rhythm at 91 bpm [place] interval 182 QRS 78 QT interval 356 QTC is 437. Patient's EKG shows no ST segment elevation or depression. Patient never had any more nausea or vomiting while in the emergency department. Patient's rectal exam was sent for occult blood and it was negative. Patient had an elevated white count however she was asymptomatic throughout her stay and had no abdominal pain and patient denied any recent fever chills or cough. Patient's hemoglobin was stable patient was ambulatory and walking around the ER without problem. Daughter is willing to take the patient home and keep a close eye and the patient. - Lab Data Result diagrams: 12/19/17 14:46 12/19/17 14:46 Lab Results 12/19/17 12/19/17 12/19/17 Range/Units 14:40 14:46 14:46 WBC 17.0 H (3.8-10.6) k/uL RBC 4.41 (3.80-5.40) m/uL Hgb 13.4 (11.4-16.0) gm/dL Hct 40.7 (34.0-46.0) % MCV 92.2 (80.0-100.0) fL MCH 30.3 (25.0-35.0) pg MCHC 32.9 (31.0-37.0) g/dL RDW 14.1 (11.5-15.5) % Plt Count 389 (150-450) k/uL Neutrophils % 86 % Lymphocytes % 8 % Monocytes % 5 % Eosinophils % 0 % Basophils % 0 % Neutrophils # 14.7 H (1.3-7.7) k/uL Lymphocytes # 1.3 (1.0-4.8) k/uL Monocytes # 0.8 (0-1.0) k/uL Eosinophils # 0.1 (0-0.7) k/uL Basophils # 0.0 (0-0.2) k/uL PT (9.0-12.0) sec INR (<1.2) APTT (22.0-30.0) sec Sodium (137-145) mmol/L Potassium (3.5-5.1) mmol/L Chloride (98-107) mmol/L Carbon Dioxide (22-30) mmol/L Anion Gap mmol/L BUN (7-17) mg/dL Creatinine (0.52-1.04) mg/dL Est GFR (CKD-EPI)AfAm (>60 ml/min/1.73 sqM) Est GFR (CKD-EPI)NonAf (>60 ml/min/1.73 sqM) Glucose (74-99) mg/dL Calcium (8.4-10.2) mg/dL Magnesium (1.6-2.3) mg/dL Total Bilirubin (0.2-1.3) mg/dL AST (14-36) U/L ALT (9-52) U/L Alkaline Phosphatase (38-126) U/L Total Creatine Kinase 21 L (30-135) U/L CK-MB (CK-2) 1.5 (0.0-2.4) ng/mL CK-MB (CK-2) Rel Index 7.1 Troponin I 0.014 (0.000-0.034) ng/mL Total Protein (6.3-8.2) g/dL Albumin (3.5-5.0) g/dL Stool Occult Blood (Negative) Blood Type A Positive Blood Type Recheck No Antibody Screen NEGATIVE Spec Expiration Date 12/22/2017 - 233912/19/17 12/19/17 12/19/17 Range/Units 14:46 14:46 15:54 WBC (3.8-10.6) k/uL RBC (3.80-5.40) m/uL Hgb (11.4-16.0) gm/dL Hct (34.0-46.0) % MCV (80.0-100.0) fL MCH (25.0-35.0) pg MCHC (31.0-37.0) g/dL RDW (11.5-15.5) % Plt Count (150-450) k/uL Neutrophils % % Lymphocytes % % Monocytes % % Eosinophils % % Basophils % % Neutrophils # (1.3-7.7) k/uL Lymphocytes # (1.0-4.8) k/uL Monocytes # (0-1.0) k/uL Eosinophils # (0-0.7) k/uL Basophils # (0-0.2) k/uL PT 10.0 (9.0-12.0) sec INR 1.0 (<1.2) APTT 24.2 (22.0-30.0) sec Sodium 134 L (137-145) mmol/L Potassium 5.2 H (3.5-5.1) mmol/L Chloride 98 (98-107) mmol/L Carbon Dioxide 24 (22-30) mmol/L Anion Gap 12 mmol/L BUN 35 H (7-17) mg/dL Creatinine 0.81 (0.52-1.04) mg/dL Est GFR (CKD-EPI)AfAm 76 (>60 ml/min/1.73 sqM) Est GFR (CKD-EPI)NonAf 66 (>60 ml/min/1.73 sqM) Glucose 141 H (74-99) mg/dL Calcium 10.1 (8.4-10.2) mg/dL Magnesium 1.5 L (1.6-2.3) mg/dL Total Bilirubin 1.2 (0.2-1.3) mg/dL AST 31 (14-36) U/L ALT 30 (9-52) U/L Alkaline Phosphatase 64 (38-126) U/L Total Creatine Kinase (30-135) U/L CK-MB (CK-2) (0.0-2.4) ng/mL CK-MB (CK-2) Rel Index Troponin I (0.000-0.034) ng/mL Total Protein 7.0 (6.3-8.2) g/dL Albumin 4.1 (3.5-5.0) g/dL Stool Occult Blood Negative (Negative) Blood Type Blood Type Recheck Antibody Screen Spec Expiration Date Disposition Clinical Impression: Acute vomiting, Hypomagnesemia Disposition: HOME SELF-CARE Condition: Good Instructions: Acute Nausea and Vomiting (ED) Is patient prescribed a controlled substance at d/c from ED?: No Referrals: Gregorio Rivera DO [Primary Care Provider] - 1-2 days Time of Disposition: 16:24
[2017-12-19 14:54] LABS: Basophils % (A) 0 %; Eosinophils # (A) 0.1 k/uL (0-0.7); Eosinophils % (A) 0 %; HCT 40.7 % (34.0-46.0); HGB 13.4 gm/dL (11.4-16.0); Lymphocytes # (A) 1.3 k/uL (1.0-4.8); Lymphocytes % (A) 8 %; MCH 30.3 pg (25.0-35.0); MCHC 32.9 g/dL (31.0-37.0); MCV 92.2 fL (80.0-100.0); Mean Platelet Volume 7.1; Monocytes # (A) 0.8 k/uL (0-1.0); Monocytes % (A) 5 %; Neutrophils # (A) 14.7 k/uL (1.3-7.7); Neutrophils % (A) 86 %; Platelet Count 389 k/uL (150-450); RBC 4.41 m/uL (3.80-5.40); RDW 14.1 % (11.5-15.5)
[2017-12-19 15:04] LABS: Partial Thromboplastin Time 24.2 sec (22.0-30.0)
[2017-12-19 15:05] LABS: Albumin 4.1 g/dL (3.5-5.0); Calcium 10.1 mg/dL (8.4-10.2); Magnesium 1.5 mg/dL (1.6-2.3); Potassium 5.2 mmol/L (3.5-5.1); Total Bilirubin 1.2 mg/dL (0.2-1.3)
[2017-12-19 15:25] VITALS: BP 121/66; PULSE 78; RESP 18
[2017-12-19 15:27] LABS: Creatine Kinase MB 1.5 ng/mL (0.0-2.4); Troponin I 0.014 ng/mL (0.000-0.034)
[2017-12-19] MEDS ORDERED: MAGNESIUM OXIDE 400 MG TAB PO STA (16:25)
== END 2017-12-19 16:46 | disposition home or self-care (01) ==
LOC: EC 13:37
DX: E83.42 Hypomagnesemia (principal); R11.10 Vomiting, unspecified; I25.10 Atherosclerotic heart disease of native coronary artery without angina pectoris; E78.5 Hyperlipidemia, unspecified; I25.2 Old myocardial infarction; Z79.899 Other long term (current) drug therapy; Z88.2 Allergy status to sulfonamides; Z91.040 Latex allergy status; Z86.73 Personal history of transient ischemic attack (TIA), and cerebral infarction without residual deficits; Z98.61 Coronary angioplasty status
CPT/HCPCS: 36415; 80053; 82272; 82550; 82553; 83735; 84484; 85025; 85610; 85730; 86850; 86900; 86901; 93005; 96360; 99285

== ENCOUNTER 2017-12-19 18:00 | Inpatient (IN) | payer MEDICARE, BC ==
[2017-12-19] MEDS ORDERED: PANTOPRAZOLE 40 MG/10 ML VIAL IVP STA (19:06)
[2017-12-19] MEDS ORDERED: ONDANSETRON 4 MG/2 ML VIAL IVP STA (19:06)
[2017-12-19] MEDS ORDERED: SODIUM CHLORIDE 0.9% 500 ML 500 ML IV STA (19:06)
--- NOTE | 2017-12-19 19:09 | ED ---
General Adult HPI <Mariely Torres P - Last Filed: 12/19/17 22:12> - General Source: patient, RN notes reviewed, old records reviewed Mode of arrival: wheelchair Limitations: no limitations <Tariq Montejo - Last Filed: 12/20/17 12:20> - General Chief complaint: Nausea/Vomiting/Diarrhea Stated complaint: recheck - vomiting Time Seen by Provider: 12/19/17 18:49 - History of Present Illness Initial comments: 87-year-old female presents for reevaluation of abdominal distention and nausea vomiting. Patient was seen in the emergency department earlier with same complaint. She was discharged home in stable condition. She had an episode of vomiting shortly after discharge, this was coffee ground. She is also had increasing abdominal distention since yesterday. She has past surgical history of hysterectomy. She still has appendix and gallbladder. She denies significant pain. Denies rectal bleeding or melena. (Tariq Montejo) - Related Data Home Medications Medication Instructions Recorded Confirmed Cholecalciferol [Vitamin D3] 1,000 unit PO DAILY 07/20/16 12/19/17 Docusate [Colace] 100 mg PO Q48H 07/20/16 12/19/17 Multivitamins, Thera [Multivitamin 1 tab PO DAILY 07/20/16 12/19/17 (formulary)] Atorvastatin [Lipitor] 80 mg PO HS 11/19/16 12/19/17 Cla 1 tab PO DAILY 02/22/17 12/19/17 L.acidoph,Paracasei, B.lactis 1 cap PO Q48H 02/22/17 12/19/17 [Probiotic] Oxybutynin Chloride [Ditropan] 5 mg PO DAILY 02/22/17 12/19/17 Ferrous Sulfate [Iron (65 MG 325 mg PO AC-BID 12/19/17 12/19/17 Elemental)] Pantoprazole Sodium [Protonix] 40 mg PO DAILY@1200 12/19/17 12/19/17 Tolterodine Tartrate [Detrol LA] 4 mg PO DAILY 12/19/17 12/19/17 Previous Rx's Medication Instructions Recorded Apixaban [Eliquis] 2.5 mg PO BID #60 tab 08/18/16 metFORMIN HCL [Metformin HCl] 500 mg PO AC-BID #60 tablet 08/18/16 Amiodarone [Cordarone] 100 mg PO DAILY #30 tab 12/31/16 Allergies Allergy/AdvReac Type Severity Reaction Status Date / Time latex Allergy Rash/Hives Verified 12/19/17 14:04 Sulfa (Sulfonamide AdvReac Nausea & Verified 12/19/17 14:04 Antibiotics) Vomiting Review of Systems ROS Other: All systems not noted in ROS Statement are negative. <Mariely Torres - Last Filed: 12/19/17 22:12> ROS Other: All systems not noted in ROS Statement are negative. <Tariq Montejo - Last Filed: 12/20/17 12:20> ROS Statement: Those systems with pertinent positive or pertinent negative responses have been documented in the HPI. Past Medical History Past Medical History: Atrial Fibrillation, Coronary Artery Disease (CAD), CVA/ TIA, Dementia, Diabetes Mellitus, GI Bleed, Hyperlipidemia, Hypertension, Myocardial Infarction (AR), Osteoarthritis (OA) Additional Past Medical History / Comment(s): Prolapsed mitral valve, "leaky" aortic valve, left sided weakness from stroke in July 2016, [facility] Last Myocardial Infarction Date:: 2006? History of Any Multi-Drug Resistant Organisms: None Reported Past Surgical History: Hysterectomy Additional Past Surgical History / Comment(s): angioplasty Past Anesthesia/Blood Transfusion Reactions: No Reported Reaction Past Psychological History: No Psychological Hx Reported Smoking Status: Never smoker Past Alcohol Use History: None Reported Past Drug Use History: None Reported <Tariq Montejo - Last Filed: 12/20/17 12:20> General Exam Limitations: no limitations General appearance: alert, in no apparent distress Head exam: Present: atraumatic, normocephalic Eye exam: Present: normal appearance, PERRL ENT exam: Present: mucous membranes dry Neck exam: Present: normal inspection. Absent: tenderness, meningismus Respiratory exam: Present: normal lung sounds bilaterally. Absent: respiratory distress, wheezes Cardiovascular Exam: Present: regular rate, normal rhythm GI/Abdominal exam: Present: soft, distended. Absent: tenderness, guarding Extremities exam: Present: normal inspection, normal capillary refill Neurological exam: Present: alert, oriented X3. Absent: motor sensory deficit Psychiatric exam: Present: normal affect, normal mood Skin exam: Present: warm, dry, intact. Absent: cyanosis, diaphoretic <Helmreich,Tariq N - Last Filed: 12/20/17 12:20> Course <Mariely Torres - Last Filed: 12/19/17 22:12> <Tariq Montejo - Last Filed: 12/20/17 12:20> Vital Signs 12/19/17 12/19/17 12/19/17 18:05 20:43 22:34 Temperature 98.3 F Pulse Rate 103 H 93 100 Pulse Rate [ Pulse Oximetery ] Respiratory 16 16 16 Rate Blood Pressure 100/55 128/58 130/98 O2 Sat by Pulse 99 98 98 Oximetry 12/19/17 23:24 Temperature Pulse Rate Pulse Rate [ 102 H Pulse Oximetery ] Respiratory 18 Rate Blood Pressure O2 Sat by Pulse Oximetry - Reevaluation(s) Reevaluation #1: 12/19/17 2100 Patient's care is signed out to the oncoming physician, Dr. Torres awaiting laboratory studies and computed tomography scan of abdomen and pelvis. ( Tariq Montejo) Medical Decision Making - Lab Data Result diagrams: 12/19/17 21:00 12/19/17 21:00 <Mariely Torres - Last Filed: 12/19/17 22:12> - Lab Data Result diagrams: 12/20/17 06:11 12/20/17 06:11 <Tariq Montejo - Last Filed: 12/20/17 12:20> - Medical Decision Making Patient care was signed out to me at shift change, [address] Montejo. Patient had return to the emergency department today for reevaluation of nausea , vomiting and abdominal pain. There is concern for coffee-ground emesis however gastric occult was negative. Labs did reveal some leukocytosis and elevated transaminases, computed tomography scan was ordered and at the time of sign out was pending. Computed tomography scan was consistent with a small bowel obstruction with transition point in the low pelvis concerning for adhesions. Results were discussed with the patient and family were agreeable to plan for NG tube, IV fluids, pain management and admission Patient care was discussed with Rosina from [facility] who accepts admission for SBO with plan for supportive care (Mariely Torres) - Lab Data Lab Results 12/19/17 12/19/17 12/19/17 Range/Units 20:24 21:00 21:00 WBC 18.1 H (3.8-10.6) k/uL RBC 4.21 (3.80-5.40) m/uL Hgb 13.0 (11.4-16.0) gm/dL Hct 38.5 (34.0-46.0) % MCV 91.3 (80.0-100.0) fL MCH 30.9 (25.0-35.0) pg MCHC 33.8 (31.0-37.0) g/dL RDW 14.3 (11.5-15.5) % Plt Count 362 (150-450) k/uL Neutrophils % 89 % Lymphocytes % 6 % Monocytes % 5 % Eosinophils % 0 % Basophils % 0 % Neutrophils # 16.0 H (1.3-7.7) k/uL Lymphocytes # 1.1 (1.0-4.8) k/uL Monocytes # 0.8 (0-1.0) k/uL Eosinophils # 0.0 (0-0.7) k/uL Basophils # 0.0 (0-0.2) k/uL Sodium 135 L (137-145) mmol/L Potassium 5.0 (3.5-5.1) mmol/L Chloride 99 (98-107) mmol/L Carbon Dioxide 21 L (22-30) mmol/L Anion Gap 15 mmol/L BUN 37 H (7-17) mg/dL Creatinine 0.92 (0.52-1.04) mg/dL Est GFR (CKD-EPI)AfAm 65 (>60 ml/min/1.73 sqM) Est GFR (CKD-EPI)NonAf 56 (>60 ml/min/1.73 sqM) Glucose 156 H (74-99) mg/dL Plasma Lactic Acid Fran (0.7-2.0) mmol/L Calcium 9.9 (8.4-10.2) mg/dL Total Bilirubin 1.4 H (0.2-1.3) mg/dL AST 22 (14-36) U/L ALT 28 (9-52) U/L Alkaline Phosphatase 63 (38-126) U/L Total Protein 6.9 (6.3-8.2) g/dL Albumin 4.1 (3.5-5.0) g/dL Amylase 79 (30-110) U/L Lipase 160 (23-300) U/L Gastric Occult Blood Negative (Negative) 12/19/17 Range/Units 21:00 WBC (3.8-10.6) k/uL RBC (3.80-5.40) m/uL Hgb (11.4-16.0) gm/dL Hct (34.0-46.0) % MCV (80.0-100.0) fL MCH (25.0-35.0) pg MCHC (31.0-37.0) g/dL RDW (11.5-15.5) % Plt Count (150-450) k/uL Neutrophils % % Lymphocytes % % Monocytes % % Eosinophils % % Basophils % % Neutrophils # (1.3-7.7) k/uL Lymphocytes # (1.0-4.8) k/uL Monocytes # (0-1.0) k/uL Eosinophils # (0-0.7) k/uL Basophils # (0-0.2) k/uL Sodium (137-145) mmol/L Potassium (3.5-5.1) mmol/L Chloride (98-107) mmol/L Carbon Dioxide (22-30) mmol/L Anion Gap mmol/L BUN (7-17) mg/dL Creatinine (0.52-1.04) mg/dL Est GFR (CKD-EPI)AfAm (>60 ml/min/1.73 sqM) Est GFR (CKD-EPI)NonAf (>60 ml/min/1.73 sqM) Glucose (74-99) mg/dL Plasma Lactic Acid Fran 1.6 (0.7-2.0) mmol/L Calcium (8.4-10.2) mg/dL Total Bilirubin (0.2-1.3) mg/dL AST (14-36) U/L ALT (9-52) U/L Alkaline Phosphatase (38-126) U/L Total Protein (6.3-8.2) g/dL Albumin (3.5-5.0) g/dL Amylase (30-110) U/L Lipase (23-300) U/L Gastric Occult Blood (Negative) Disposition <Mariely Torres P - Last Filed: 12/19/17 22:12> Is patient prescribed a controlled substance at d/c from ED?: No Decision to Admit Reason: Admit from EC <Tariq Montejo - Last Filed: 12/20/17 12:20> Clinical Impression: SBO (small bowel obstruction), Dehydration Disposition: ADMITTED IP TO THIS HOSP Condition: Stable
[2017-12-19 21:23] LABS: Albumin 4.1 g/dL (3.5-5.0); Calcium 9.9 mg/dL (8.4-10.2); Total Bilirubin 1.4 mg/dL (0.2-1.3); Total Protein 6.9 g/dL (6.3-8.2)
[2017-12-19 21:28] LABS: Basophils % (A) 0 %; Eosinophils % (A) 0 %; HCT 38.5 % (34.0-46.0); Lymphocytes # (A) 1.1 k/uL (1.0-4.8); Lymphocytes % (A) 6 %; MCH 30.9 pg (25.0-35.0); MCHC 33.8 g/dL (31.0-37.0); MCV 91.3 fL (80.0-100.0); Mean Platelet Volume 7.2; Monocytes # (A) 0.8 k/uL (0-1.0); Monocytes % (A) 5 %; Neutrophils % (A) 89 %; Platelet Count 362 k/uL (150-450); RBC 4.21 m/uL (3.80-5.40); RDW 14.3 % (11.5-15.5); WBC 18.1 k/uL (3.8-10.6)
--- NOTE | 2017-12-19 21:58 | CT ---
EXAMINATION TYPE: CT abdomen pelvis w con DATE OF EXAM: 12/19/2017 HISTORY: abdominal pain, nausea, vomiting CT DLP: 889.3mGycm Automated Exposure Control for Dose Reduction was Utilized. CONTRAST: CT scan of the abdomen and pelvis is performed without oral but with IV Contrast, patient injected wi th 100 mL of Isovue 300. COMPARISON: None FINDINGS: LUNG BASES: Cardiomegaly is present. There are dense calcifications at level of mitral and aortic heidi ves. Coronary artery calcification and/or stents are present. LIVER/GB: Trace ascites superior anterior aspect of liver is noted. PANCREAS: No significant abnormality is seen. SPLEEN: There is moderate superior and lateral perisplenic ascites. ADRENALS: No significant abnormality is seen. KIDNEYS: No significant abnormality is seen. BOWEL: There is air-fluid level in slightly prominent stomach. There is fluid-filled dilatation of du odenal sweep. There are dilated small bowel loops with air-fluid levels most prominent in the left ab domen. Some adjacent abdominal ascites left paracolic gutter is noted. Fecal material is seen in nondistended colon. Nondilated distal small bowel loops in the right pelvis are present. There appears to be transition point from dilated small bowel in the right upper pelvis near coronal image 51 and axial image 64. UTERUS/ADNEXA: Uterus is surgically absent or markedly atrophic. A few scattered pelvic phleboliths a re seen. LYMPH NODES: No greater than 1cm abdominal or pelvic lymph nodes are appreciated. OSSEOUS STRUCTURES: There is moderate to severe multilevel spurring and disc space narrowing most pro minent L4-L5 level. There is multilevel facet arthropathy. Most prominent spinal canal effacement or stenosis is seen L4-L5 level and axial image 53. OTHER: There is moderate to severe calcified plaque of the aorta extending into branch vessels. IMPRESSION: Findings are consistent with developing distal small bowel obstruction with transition po int identified in the upper pelvis just right of midline presumed product of adhesions as detailed ab ove.
[2017-12-19] MEDS ORDERED: HYDROmorphone 1 MG/ML 1 ML SYRINGE IVP PRN (22:23)
[2017-12-19] MEDS ORDERED: NALOXONE 0.4 MG/ML 1 ML VIAL IV PRN (22:23)
--- NOTE | 2017-12-19 23:23 | XR ---
EXAMINATION TYPE: XR chest 1V portable DATE OF EXAM: 12/19/2017 COMPARISON: 07/11/2017 HISTORY: NG tube placement TECHNIQUE: Single frontal view of the chest is obtained. FINDINGS: There is no heart failure nor confluent pneumonic infiltrate. Costophrenic angles are massiel r. There is nasogastric tube noted. Tip is in good position in the fundus. Heart size is normal. IMPRESSION: No active cardiopulmonary disease. NG tube in good position.
[2017-12-20 00:21] LABS: Glucose,Whole Blood 164 mg/dL (75-99)
[2017-12-20] MEDS: SODIUM CHLORIDE 0.9% 1,000 ML IV SCH ×2 (00:21→13:40)
[2017-12-20] MEDS: INSULIN ASPART 100 UNIT/ML 1 ML 10 ML VIAL SQ SCH ×5 (03:14→19:48)
[2017-12-20 05:26] LABS: Glucose,Whole Blood 150 mg/dL (75-99)
[2017-12-20 06:21] LABS: Basophils % (A) 0 %; Eosinophils # (A) 0.2 k/uL (0-0.7); Eosinophils % (A) 1 %; HCT 36.6 % (34.0-46.0); HGB 12.5 gm/dL (11.4-16.0); Lymphocytes # (A) 1.1 k/uL (1.0-4.8); Lymphocytes % (A) 7 %; MCH 31.2 pg (25.0-35.0); MCHC 34.1 g/dL (31.0-37.0); MCV 91.5 fL (80.0-100.0); Mean Platelet Volume 7.7; Monocytes % (A) 6 %; Neutrophils % (A) 85 %; Platelet Count 348 k/uL (150-450); RDW 14.2 % (11.5-15.5); WBC 16.5 k/uL (3.8-10.6)
[2017-12-20 06:57] LABS: Albumin 3.4 g/dL (3.5-5.0); Calcium 9.1 mg/dL (8.4-10.2); Potassium 5.3 mmol/L (3.5-5.1); Total Bilirubin 1.5 mg/dL (0.2-1.3)
[2017-12-20] MEDS: PANTOPRAZOLE 40 MG/10 ML VIAL IV SCH (09:23)
[2017-12-20 12:31] LABS: Glucose,Whole Blood 152 mg/dL (75-99)
[2017-12-20 13:54] LABS: Glucose,Whole Blood 140 mg/dL (75-99)
--- NOTE | 2017-12-20 14:27 | P.HPIM ---
History of Present Illness 87-year-old female presents for reevaluation of abdominal distention and nausea vomiting. She is also had increasing abdominal distention since yesterday. She has past surgical history of hysterectomy. She still has appendix and gallbladder. She denies significant pain. Denies rectal bleeding or melena. Patient is found to have small bowel obstruction, had an NG tube today. Draining NG tube was removed she is not nauseous anymore patient was started on clear liquid diet did not move her bowel is passing gas does have good bowel sounds. Her medications are not verified it once that done patient will be started on her home medications appropriate ones Review of Systems REVIEW OF SYSTEMS: CONSTITUTIONAL: No fever, no malaise, no fatigue. HEENT: No recent visual problems or hearing problems. Denied any sore throat. CARDIOVASCULAR: No chest pain, orthopnea, PND, no palpitations, no syncope. PULMONARY: No shortness of breath, no cough, no hemoptysis. GASTROINTESTINAL: As mentioned in HPI NEUROLOGICAL: No headaches, no weakness, no numbness. HEMATOLOGICAL: Denies any bleeding or petechiae. GENITOURINARY: Denies any burning micturition, frequency, or urgency. MUSCULOSKELETAL/RHEUMATOLOGICAL: Denies any joint pain, swelling, or any muscle pain. ENDOCRINE: Denies any polyuria or polydipsia. The rest of the 14-point review of systems is negative. Past Medical History Past Medical History: Atrial Fibrillation, Coronary Artery Disease (CAD), CVA/ TIA, Dementia, Diabetes Mellitus, GI Bleed, Hyperlipidemia, Hypertension, Myocardial Infarction (PR), Osteoarthritis (OA) Additional Past Medical History / Comment(s): Prolapsed mitral valve, "leaky" aortic valve, left sided weakness from stroke in July 2016, [facility] Last Myocardial Infarction Date:: 2006? History of Any Multi-Drug Resistant Organisms: None Reported Past Surgical History: Hysterectomy Additional Past Surgical History / Comment(s): angioplasty Past Anesthesia/Blood Transfusion Reactions: No Reported Reaction Past Psychological History: No Psychological Hx Reported Smoking Status: Never smoker Past Alcohol Use History: None Reported Past Drug Use History: None Reported - Past Family History Mother Additional Family Medical History / Comment(s): Brain An. Father Family Medical History: CVA/TIA Sister(s) Family Medical History: Diabetes Mellitus Additional Family Medical History / Comment(s): Cardiac issues Brother(s) Family Medical History: Diabetes Mellitus Additional Family Medical History / Comment(s): cardiac issues Medications and Allergies Home Medications Medication Instructions Recorded Confirmed Type Cholecalciferol [Vitamin D3] 1,000 unit PO DAILY 07/20/16 12/19/17 History Docusate [Colace] 100 mg PO Q48H 07/20/16 12/19/17 History Multivitamins, Thera [Multivitamin 1 tab PO DAILY 07/20/16 12/19/17 History (formulary)] Apixaban [Eliquis] 2.5 mg PO BID #60 tab 08/18/16 12/19/17 Rx metFORMIN HCL [Metformin HCl] 500 mg PO AC-BID #60 tablet 08/18/16 12/19/17 Rx Atorvastatin [Lipitor] 80 mg PO HS 11/19/16 12/19/17 History Amiodarone [Cordarone] 100 mg PO DAILY #30 tab 12/31/16 12/19/17 Rx Cla 1 tab PO DAILY 02/22/17 12/19/17 History L.acidoph,Paracasei, B.lactis 1 cap PO Q48H 02/22/17 12/19/17 History [Probiotic] Oxybutynin Chloride [Ditropan] 5 mg PO DAILY 02/22/17 12/19/17 History Ferrous Sulfate [Iron (65 MG 325 mg PO AC-BID 12/19/17 12/19/17 History Elemental)] Pantoprazole Sodium [Protonix] 40 mg PO DAILY@1200 12/19/17 12/19/17 History Tolterodine Tartrate [Detrol LA] 4 mg PO DAILY 12/19/17 12/19/17 History Allergies Allergy/AdvReac Type Severity Reaction Status Date / Time latex Allergy Rash/Hives Verified 12/20/17 14:22 Sulfa (Sulfonamide AdvReac Nausea & Verified 12/20/17 14:22 Antibiotics) Vomiting Physical Exam Vitals: Vital Signs Temp Pulse Pulse Resp BP BP Pulse Ox 12/20/17 07:00 98.8 F 102 H 12 93/57 98 12/20/17 02:45 96.2 F L 105 H 16 108/66 97 12/19/17 23:42 98.4 F 106 H 16 104/67 96 12/19/17 23:24 102 H 18 12/19/17 22:34 100 16 130/98 98 12/19/17 20:43 93 16 128/58 98 12/19/17 18:05 98.3 F 103 H 16 100/55 99 Intake and Output 12/19/17 12/20/17 12/20/17 22:59 06:59 14:59 Intake Total 480 800 Balance 480 800 Intake: Intake, IV Titration 480 800 Amount Sodium Chloride 0.9% 1, 480 800 000 ml @ 80 mls/hr IV . [id number] [facility] Rx#:[id number] Other: # Voids 1 Weight 71.668 kg PHYSICAL EXAMINATION: GENERAL: The patient is alert and oriented x3, not in any acute distress. Well developed, well nourished. HEENT: Pupils are round and equally reacting to light. EOMI. No scleral icterus. No conjunctival pallor. Normocephalic, atraumatic. No pharyngeal erythema. No thyromegaly. CARDIOVASCULAR: S1 and S2 present. No murmurs, rubs, or gallops. PULMONARY: Chest is clear to auscultation, no wheezing or crackles. ABDOMEN: Soft, nontender, nondistended, normoactive bowel sounds. No palpable organomegaly. MUSCULOSKELETAL: No joint swelling or deformity. EXTREMITIES: No cyanosis, clubbing, or pedal edema. NEUROLOGICAL: Gross neurological examination did not reveal any focal deficits. SKIN: No rashes. Results CBC & Chem 7: 12/20/17 06:11 12/20/17 06:11 Labs: Abnormal Lab Results - Last 24 Hours (Table) 12/19/17 12/19/17 12/20/17 Range/Units 21:00 21:00 00:19 WBC 18.1 H (3.8-10.6) k/uL Neutrophils # 16.0 H (1.3-7.7) k/uL Sodium 135 L (137-145) mmol/L Potassium (3.5-5.1) mmol/L Carbon Dioxide 21 L (22-30) mmol/L BUN 37 H (7-17) mg/dL Glucose 156 H (74-99) mg/dL POC Glucose (mg/dL) 164 H (75-99) mg/dL Total Bilirubin 1.4 H (0.2-1.3) mg/dL Total Protein (6.3-8.2) g/dL Albumin (3.5-5.0) g/dL 12/20/17 12/20/17 12/20/17 Range/Units 05:25 06:11 06:11 WBC 16.5 H (3.8-10.6) k/uL Neutrophils # 14.0 H (1.3-7.7) k/uL Sodium 136 L (137-145) mmol/L Potassium 5.3 H (3.5-5.1) mmol/L Carbon Dioxide 20 L (22-30) mmol/L BUN 41 H (7-17) mg/dL Glucose 138 H (74-99) mg/dL POC Glucose (mg/dL) 150 H (75-99) mg/dL Total Bilirubin 1.5 H (0.2-1.3) mg/dL Total Protein 6.0 L (6.3-8.2) g/dL Albumin 3.4 L (3.5-5.0) g/dL 12/20/17 12/20/17 Range/Units 12:28 13:42 WBC (3.8-10.6) k/uL Neutrophils # (1.3-7.7) k/uL Sodium (137-145) mmol/L Potassium (3.5-5.1) mmol/L Carbon Dioxide (22-30) mmol/L BUN (7-17) mg/dL Glucose (74-99) mg/dL POC Glucose (mg/dL) 152 H 140 H (75-99) mg/dL Total Bilirubin (0.2-1.3) mg/dL Total Protein (6.3-8.2) g/dL Albumin (3.5-5.0) g/dL Thrombosis Risk Factor Assmnt - Choose All That Apply Any of the Below Risk Factors Present?: Yes Each Factor Represents 1 point: Obesity (BMI >25) Each Risk Factor Represents 3 Points: Age 75 years or older Thrombosis Risk Factor Assessment Total Risk Factor Score: 4 Thrombosis Risk Factor Assessment Level: Moderate Risk Assessment and Plan Plan: partial small bowel obstruction: Improving now NG tube was removed. Was started on clear liquid diet will advance as tolerated -Atrial fibrillation patient is on anti-correlation with Eliquis which will be resumed any with her rate control medications next and happen coronary artery disease type 2 diabetes mellitus -Hyperlipidemia -Hypertension For above-mentioned chronic medical problems patient will be resumed on appropriate home medications.
[2017-12-20 17:39] LABS: Glucose,Whole Blood 131 mg/dL (75-99)
[2017-12-20] MEDS: AMIODARONE 100 MG TAB PO SCH (18:21)
[2017-12-20] MEDS: metFORMIN 500 MG TAB PO SCH (19:23)
[2017-12-20] MEDS: FERROUS SULFATE 325 MG TAB PO SCH (19:24)
[2017-12-20 19:32] LABS: Glucose,Whole Blood 175 mg/dL (75-99)
[2017-12-20] MEDS: APIXABAN 2.5 MG TABLET PO SCH (19:50)
[2017-12-20] MEDS: ATORVASTATIN 80 MG TAB PO SCH (19:50)
[2017-12-20] MEDS: DOCUSATE 100 MG CAP PO SCH (19:50)
[2017-12-20] MEDS ORDERED: INSULIN ASPART 100 UNIT/ML 1 ML 10 ML VIAL SQ SCH (21:00)
[2017-12-20 23:34] LABS: Appearance,Urine Clear (Clear); Bilirubin,Urine Negative (Negative); Blood,Urine Negative (Negative); Color,Urine Yellow; Glucose,Urine (UA) Negative (Negative); Ketones,Urine 1+ (Negative); Leukocyte Esterase,Urine Negative (Negative); Nitrite,Urine Negative (Negative); PH, Urine 5.5 (5.0-8.0); Protein,Urine Trace (Negative); Urobilinogen,Urine <2.0 mg/dL (<2.0)
[2017-12-21] MEDS: SODIUM CHLORIDE 0.9% 1,000 ML IV SCH ×2 (01:31→11:21)
[2017-12-21] MEDS: ONDANSETRON 4 MG/2 ML VIAL IVP PRN ×2 (05:49→22:29)
[2017-12-21 07:35] LABS: Glucose,Whole Blood 145 mg/dL (75-99)
[2017-12-21] MEDS: INSULIN ASPART 100 UNIT/ML 1 ML 10 ML VIAL SQ SCH ×4 (08:41→21:13)
[2017-12-21] MEDS: FERROUS SULFATE 325 MG TAB PO SCH ×2 (08:43→18:27)
[2017-12-21] MEDS: metFORMIN 500 MG TAB PO SCH ×2 (08:43→18:27)
[2017-12-21] MEDS: PANTOPRAZOLE 40 MG/10 ML VIAL IV SCH (08:43)
[2017-12-21] MEDS: CHOLECALCIFEROL 1,000 UNIT TAB PO SCH (08:43)
[2017-12-21] MEDS: APIXABAN 2.5 MG TABLET PO SCH ×2 (08:43→21:13)
[2017-12-21] MEDS: AMIODARONE 100 MG TAB PO SCH (08:43)
[2017-12-21] MEDS: MULTIVITAMINS, THERA 1 EACH TAB PO SCH (11:21)
--- NOTE | 2017-12-21 11:27 | P.PN ---
Subjective Progress Note Date: 12/21/17 87-year-old female who originally presented to the emergency room due to nausea and vomiting. Computed tomography scan revealed developing distal small bowel obstruction with transition point identified in the upper pelvis just right of the midline presumed product of adhesions. Chest x-ray was negative for an acute process. The patient did have an NG tube placed but according to nursing documentation and was pulled out by the patient on the morning of 12/20/2017. The patient's NG tube was not reinserted per physician order. The patient denied any further episodes of vomiting. She denies nausea at this time. She is tolerating a clear liquid diet. The patient does have good bowel sounds. She denies passing flatus. Denies bowel movement. Abdomen is soft, but does remain distended. Daughter is at the bedside who reports patient's abdomen is larger than her baseline. Patient's vital signs are stable. Temperature this morning at 9.1. Blood pressure 105/62. She is on room air with oxygen saturations greater than 92%. The patient's daughter would like the patient to be discharged to rehab when she is stable and is requesting [facility]. Objective - Vital Signs Vital signs: Vital Signs Temp 99.1 F 12/21/17 07:00 Pulse 100 12/21/17 07:00 Resp 17 12/21/17 07:00 BP 105/62 12/21/17 07:00 Pulse Ox 94 L 12/21/17 07:00 Intake & Output 12/20/17 12/21/17 12/21/17 18:59 06:59 18:59 Intake Total 800 Balance 800 Intake: Intake, IV Titration 800 Amount Sodium Chloride 0.9% 1, 800 000 ml @ 80 mls/hr IV . [id number] [facility] Rx#:[id number] Other: # Voids 1 - Exam GENERAL: This is a 87-year-old female in no apparent distress at the time of examination. Pleasant and cooperative. HEENT: Head is atraumatic, normocephalic. Pupils are equal, round, and reactive to light. Sclerae anicteric. Conjunctivae are clear. Mucus membranes of the mouth are moist. Neck is supple. RESPIRATORY: Clear to ausculation. No wheezes, rales, or rhonchi. No use of accessory muscles. Patient maintaining oxygen saturation greater than 92%. No chest wall tenderness is noted on palpation or with deep breathing. CARDIOVASCULAR: Regular rate and rhythm. S1 and S2 noted. No JVD noted. No S3 or S4 noted. GASTROINTESTINAL: Abdomen soft and round, but is distended in comparison to patient's baseline. Bowel sounds auscultated x 4 quadrants. No pain or tenderness noted upon palpation. INTEGUMENTARY: No cyanosis. No jaundice. No rashes noted. No cellulitis noted. EXTREMITIES: 2+ peripheral pulses. No evidence of peripheral edema. No calf tenderness noted. NEUROLOGIC: Cranial nerves II-XII intact. PSYCHIATRIC: Awake, alert, and oriented X 2-3. Appropriate affect. - Labs CBC & Chem 7: 12/20/17 06:11 12/20/17 06:11 Labs: Abnormal Lab Results - Last 24 Hours (Table) 12/20/17 12/20/17 12/20/17 Range/Units 12:28 13:42 17:28 POC Glucose (mg/dL) 152 H 140 H 131 H (75-99) mg/dL Urine Protein (Negative) Urine Ketones (Negative) 12/20/17 12/20/17 12/21/17 Range/Units 19:21 22:44 07:22 POC Glucose (mg/dL) 175 H 145 H (75-99) mg/dL Urine Protein Trace H (Negative) Urine Ketones 1+ H (Negative) Assessment and Plan Plan: ASSESSMENT: Small bowel obstruction, present on admission, suspect secondary to adhesions per CT Nausea and vomiting, secondary to above, resolved Diabetes mellitus, type II Hyperlipidemia Hypertension Paroxysmal atrial fibrillation, on long-term anticoagulation with Eliquis History of coronary artery disease History of CVA Dementia Osteoarthritis PLAN: Consult general surgery, Dr. Rivera, for evaluation Continue clear liquid diet. Advance diet per surgery. Consult PT/OT for placement evaluation Home meds as appropriate Monitor labs GI prophylaxis: Protonix 40 mg IV Daily DVT prophylaxis: Eliquis Monitor vital signs and address as appropriate Discharge planning: Patients daughter is requesting subacute rehab at the time of discharge. Requesting [facility]. Further recommendations pending patient's course Nurse practitioner note has been reviewed by physician. Signing provider agrees with the documented findings, assessment, and plan of care.
[2017-12-21 12:10] LABS: Glucose,Whole Blood 166 mg/dL (75-99)
[2017-12-21 12:12] LABS: Calcium 8.2 mg/dL (8.4-10.2); Potassium 4.7 mmol/L (3.5-5.1)
[2017-12-21 12:51] LABS: Basophils % (A) 0 %; Eosinophils % (A) 0 %; HCT 36.4 % (34.0-46.0); HGB 12.2 gm/dL (11.4-16.0); Lymphocytes # (A) 0.7 k/uL (1.0-4.8); Lymphocytes % (A) 6 %; MCH 30.9 pg (25.0-35.0); MCHC 33.5 g/dL (31.0-37.0); MCV 92.1 fL (80.0-100.0); Mean Platelet Volume 7.3; Monocytes # (A) 0.9 k/uL (0-1.0); Monocytes % (A) 8 %; Neutrophils # (A) 10.3 k/uL (1.3-7.7); Neutrophils % (A) 86 %; Platelet Count 351 k/uL (150-450); RBC 3.95 m/uL (3.80-5.40); RDW 14.2 % (11.5-15.5)
[2017-12-21 17:37] LABS: Glucose,Whole Blood 129 mg/dL (75-99)
--- NOTE | 2017-12-21 18:08 | P.GSCN ---
History of Present Illness Consult date: 12/21/17 Reason for Consult: Small bowel obstruction History of present illness: This 87-year-old female who is admitted to Dr. Miguel dumont. Patient was admitted over the weekend with complaints of nausea vomiting abdominal distention. Patient has a clinical appearance of a small bowel obstruction. She denies any bowel movements or flatus today. Past Medical History Past Medical History: Atrial Fibrillation, Coronary Artery Disease (CAD), CVA/ TIA, Dementia, Diabetes Mellitus, GI Bleed, Hyperlipidemia, Hypertension, Myocardial Infarction (MN), Osteoarthritis (OA) Additional Past Medical History / Comment(s): Prolapsed mitral valve, "leaky" aortic valve, left sided weakness from stroke in July 2016, [facility] Last Myocardial Infarction Date:: 2006? History of Any Multi-Drug Resistant Organisms: None Reported Past Surgical History: Hysterectomy Additional Past Surgical History / Comment(s): angioplasty Past Anesthesia/Blood Transfusion Reactions: No Reported Reaction Past Psychological History: No Psychological Hx Reported Smoking Status: Never smoker Past Alcohol Use History: None Reported Past Drug Use History: None Reported - Past Family History Mother Additional Family Medical History / Comment(s): Brain An. Father Family Medical History: CVA/TIA Sister(s) Family Medical History: Diabetes Mellitus Additional Family Medical History / Comment(s): Cardiac issues Brother(s) Family Medical History: Diabetes Mellitus Additional Family Medical History / Comment(s): cardiac issues Medications and Allergies Home Medications Medication Instructions Recorded Confirmed Type Cholecalciferol [Vitamin D3] 1,000 unit PO DAILY 07/20/16 12/20/17 History Docusate [Colace] 100 mg PO Q48H 07/20/16 12/20/17 History Multivitamins, Thera [Multivitamin 1 tab PO DAILY 07/20/16 12/20/17 History (formulary)] Apixaban [Eliquis] 2.5 mg PO BID #60 tab 08/18/16 12/20/17 Rx metFORMIN HCL [Metformin HCl] 500 mg PO AC-BID #60 tablet 08/18/16 12/20/17 Rx Atorvastatin [Lipitor] 80 mg PO HS 11/19/16 12/20/17 History Amiodarone [Cordarone] 100 mg PO DAILY #30 tab 12/31/16 12/20/17 Rx Cla 1 tab PO DAILY 02/22/17 12/20/17 History L.acidoph,Paracasei, B.lactis 1 cap PO Q48H 02/22/17 12/20/17 History [Probiotic] Ferrous Sulfate [Iron (65 MG 325 mg PO AC-BID 12/19/17 12/20/17 History Elemental)] Pantoprazole Sodium [Protonix] 40 mg PO DAILY@1200 12/19/17 12/20/17 History Tolterodine Tartrate [Detrol LA] 4 mg PO DAILY 12/19/17 12/20/17 History Allergies Allergy/AdvReac Type Severity Reaction Status Date / Time latex Allergy Rash/Hives Verified 12/20/17 14:22 Sulfa (Sulfonamide AdvReac Nausea & Verified 12/20/17 14:22 Antibiotics) Vomiting Surgical - Exam Vital Signs Temp Pulse Resp BP Pulse Ox 98.3 F 103 H 16 100/55 99 12/19/17 18:05 12/19/17 18:05 12/19/17 18:05 12/19/17 18:05 12/19/17 18:05 - General well developed, no distress - Eyes PERRL - ENT normal pinna - Neck no masses - Respiratory normal expansion - Cardiovascular Rhythm: regular - Abdomen Abdomen is distended. There is some minimal tenderness. There is no rebound or guarding. Abdomen: soft Results - Labs 12/21/17 11:32 12/21/17 11:32 Abnormal Lab Results - Last 24 Hours (Table) 12/20/17 12/20/17 12/21/17 Range/Units 19:21 22:44 07:22 WBC (3.8-10.6) k/uL Neutrophils # (1.3-7.7) k/uL Lymphocytes # (1.0-4.8) k/uL Sodium (137-145) mmol/L Carbon Dioxide (22-30) mmol/L BUN (7-17) mg/dL Glucose (74-99) mg/dL POC Glucose (mg/dL) 175 H 145 H (75-99) mg/dL Calcium (8.4-10.2) mg/dL Urine Protein Trace H (Negative) Urine Ketones 1+ H (Negative) 12/21/17 12/21/17 12/21/17 Range/Units 11:32 11:32 11:57 WBC 12.0 H (3.8-10.6) k/uL Neutrophils # 10.3 H (1.3-7.7) k/uL Lymphocytes # 0.7 L (1.0-4.8) k/uL Sodium 136 L (137-145) mmol/L Carbon Dioxide 20 L (22-30) mmol/L BUN 45 H (7-17) mg/dL Glucose 159 H (74-99) mg/dL POC Glucose (mg/dL) 166 H (75-99) mg/dL Calcium 8.2 L (8.4-10.2) mg/dL Urine Protein (Negative) Urine Ketones (Negative) 12/21/17 Range/Units 17:24 WBC (3.8-10.6) k/uL Neutrophils # (1.3-7.7) k/uL Lymphocytes # (1.0-4.8) k/uL Sodium (137-145) mmol/L Carbon Dioxide (22-30) mmol/L BUN (7-17) mg/dL Glucose (74-99) mg/dL POC Glucose (mg/dL) 129 H (75-99) mg/dL Calcium (8.4-10.2) mg/dL Urine Protein (Negative) Urine Ketones (Negative) Diabetes panel 12/20/17 12/21/17 Range/Units 06:11 11:32 Sodium 136 L (137-145) mmol/L Potassium 4.7 (3.5-5.1) mmol/L Chloride 104 (98-107) mmol/L Carbon Dioxide 20 L (22-30) mmol/L BUN 45 H (7-17) mg/dL Creatinine 0.87 (0.52-1.04) mg/dL Glucose 159 H (74-99) mg/dL Hemoglobin A1c 6.0 (4.0-6.0) % Calcium 8.2 L (8.4-10.2) mg/dL Calcium panel 12/21/17 Range/Units 11:32 Calcium 8.2 L (8.4-10.2) mg/dL Pituitary panel 12/21/17 Range/Units 11:32 Sodium 136 L (137-145) mmol/L Potassium 4.7 (3.5-5.1) mmol/L Chloride 104 (98-107) mmol/L Carbon Dioxide 20 L (22-30) mmol/L BUN 45 H (7-17) mg/dL Creatinine 0.87 (0.52-1.04) mg/dL Glucose 159 H (74-99) mg/dL Calcium 8.2 L (8.4-10.2) mg/dL Adrenal panel 12/21/17 Range/Units 11:32 Sodium 136 L (137-145) mmol/L Potassium 4.7 (3.5-5.1) mmol/L Chloride 104 (98-107) mmol/L Carbon Dioxide 20 L (22-30) mmol/L BUN 45 H (7-17) mg/dL Creatinine 0.87 (0.52-1.04) mg/dL Glucose 159 H (74-99) mg/dL Calcium 8.2 L (8.4-10.2) mg/dL - Imaging CT scan - abdomen: report reviewed (Computed tomography scan from 2 days ago shows evidence of a developing small bowel obstruction) Assessment and Plan Assessment: Probable small bowel obstruction. Patient will undergo repeat CAT scan with oral contrast of the abdomen pelvis today. She'll be made nothing by mouth.
[2017-12-21] MEDS: IOPAMIDOL-300 CONTRAST 30 ML VIAL (ORAL USE) PO PRN ×2 (18:56→19:54)
[2017-12-21 21:09] LABS: Glucose,Whole Blood 160 mg/dL (75-99)
[2017-12-21] MEDS: ATORVASTATIN 80 MG TAB PO SCH (21:13)
--- NOTE | 2017-12-21 22:03 | CT ---
EXAMINATION TYPE: CT abdomen pelvis w con DATE OF EXAM: 12/21/2017 COMPARISON: 12/19/2017 HISTORY: Generalized pain with nausea and vomiting CT DLP: 926.4 mGycm Automated exposure control for dose reduction was used. TECHNIQUE: Helical acquisition of images was performed from the lung bases through the pelvis. CONTRAST: Performed with Oral Contrast and with IV Contrast, patient injected with 80 mL of Isovue 30 0. FINDINGS: Since the previous study of 12/19/2017, the mechanical bowel obstruction pattern has worsened conside rably. The dilated loops of bowel are more numerous presently and more dilated than the prior study. This al so includes technique stomach which is markedly dilated throughout the upper quadrants, left greater than right. There is no pneumatosis at this time. There is no pneumoperitoneum at this time. Whereas on the prior study there was no paracolic gutter peritoneal fluid, there is bilateral paracol ic gutter peritoneal fluid on the present exam. Widespread atherosclerotic changes are seen throughout the arterial anatomy, including coronary calci fications. IMPRESSION: INTERVAL WORSENING IN THE MECHANICAL SMALL BOWEL OBSTRUCTION PATTERN.
[2017-12-22] MEDS: SODIUM CHLORIDE 0.9% 1,000 ML IV SCH ×2 (02:40→12:05)
[2017-12-22 07:47] LABS: Glucose,Whole Blood 150 mg/dL (75-99)
[2017-12-22] MEDS: APIXABAN 2.5 MG TABLET PO SCH (07:54)
[2017-12-22] MEDS: AMIODARONE 100 MG TAB PO SCH (07:54)
[2017-12-22] MEDS: FERROUS SULFATE 325 MG TAB PO SCH ×2 (07:54→18:03)
[2017-12-22] MEDS: MULTIVITAMINS, THERA 1 EACH TAB PO SCH (07:54)
[2017-12-22] MEDS: metFORMIN 500 MG TAB PO SCH ×2 (07:54→18:03)
[2017-12-22] MEDS: CHOLECALCIFEROL 1,000 UNIT TAB PO SCH (07:54)
[2017-12-22] MEDS: PANTOPRAZOLE 40 MG/10 ML VIAL IV SCH (07:56)
[2017-12-22] MEDS: INSULIN ASPART 100 UNIT/ML 1 ML 10 ML VIAL SQ SCH ×4 (07:57→21:13)
[2017-12-22 11:52] LABS: Glucose,Whole Blood 136 mg/dL (75-99)
--- NOTE | 2017-12-22 11:53 | P.PN ---
Subjective Progress Note Date: 12/22/17 12/21/2017 87-year-old female who originally presented to the emergency room due to nausea and vomiting. Computed tomography scan revealed developing distal small bowel obstruction with transition point identified in the upper pelvis just right of the midline presumed product of adhesions. Chest x-ray was negative for an acute process. The patient did have an NG tube placed but according to nursing documentation and was pulled out by the patient on the morning of 12/20/2017. The patient's NG tube was not reinserted per physician order. The patient denied any further episodes of vomiting. She denies nausea at this time. She is tolerating a clear liquid diet. The patient does have good bowel sounds. She denies passing flatus. Denies bowel movement. Abdomen is soft, but does remain distended. Daughter is at the bedside who reports patient's abdomen is larger than her baseline. Patient's vital signs are stable. Temperature this morning at 9.1. Blood pressure 105/62. She is on room air with oxygen saturations greater than 92%. The patient's daughter would like the patient to be discharged to rehab when she is stable and is requesting [facility]. 12/22/2017 Patient seen and examined at the bedside. patient underwent computed tomography scan of the abdomen yesterday which revealed worsening mechanical small bowel obstruction. Patient had an NG tube placed this morning with immediate 1200 mL of drainage. Since insertion the patient has had approximately an additional 1000 mL of drainage. patient's abdomen is less distended today in comparison to yesterday. Patient states her pain has been tolerable. She denies shortness of breath or chest pain. patient's blood pressure is stable. 115/65. She is on room air with an oxygen saturation greater than 92%. The patient is slightly tachycardic with a heart rate in the low 100s. Objective - Vital Signs Vital signs: Vital Signs Temp 97.6 F 12/22/17 07:18 Pulse 102 H 12/22/17 07:18 Resp 14 12/22/17 07:18 BP 115/65 12/22/17 07:18 Pulse Ox 93 L 12/22/17 07:18 Intake & Output 12/21/17 12/22/17 12/22/17 18:59 06:59 18:59 Intake Total 450 500 Output Total 1200 Balance 450 500 -1200 Weight 71.668 kg Intake: Oral 450 500 Output: Gastric Drainage 1200 Other: # Voids 2 - Exam GENERAL: This is a 87-year-old female in no apparent distress at the time of examination. Pleasant and cooperative. HEENT: Head is atraumatic, normocephalic. Pupils are equal, round, and reactive to light. Sclerae anicteric. Conjunctivae are clear. Mucus membranes of the mouth are moist. Neck is supple. RESPIRATORY: Clear to ausculation. No wheezes, rales, or rhonchi. No use of accessory muscles. Patient maintaining oxygen saturation greater than 92%. No chest wall tenderness is noted on palpation or with deep breathing. CARDIOVASCULAR: Regular rate and rhythm, slightly tachycardic. Systolic murmur.S1 and S2 noted. No JVD noted. No S3 or S4 noted. GASTROINTESTINAL: Abdomen soft and round. abdominal distention improved since yesterday. Bowel sounds auscultated x 4 quadrants. NG tube to low intermittent suction. No pain or tenderness noted upon palpation. INTEGUMENTARY: No cyanosis. No jaundice. No rashes noted. No cellulitis noted. EXTREMITIES: 2+ peripheral pulses. No evidence of peripheral edema. No calf tenderness noted. NEUROLOGIC: Cranial nerves II-XII intact. PSYCHIATRIC: Awake, alert, and oriented X 2-3. Appropriate affect. - Labs CBC & Chem 7: 12/21/17 11:32 12/21/17 11:32 Labs: Abnormal Lab Results - Last 24 Hours (Table) 12/21/17 12/21/17 12/21/17 Range/Units 11:32 11:32 11:57 WBC 12.0 H (3.8-10.6) k/uL Neutrophils # 10.3 H (1.3-7.7) k/uL Lymphocytes # 0.7 L (1.0-4.8) k/uL Sodium 136 L (137-145) mmol/L Carbon Dioxide 20 L (22-30) mmol/L BUN 45 H (7-17) mg/dL Glucose 159 H (74-99) mg/dL POC Glucose (mg/dL) 166 H (75-99) mg/dL Calcium 8.2 L (8.4-10.2) mg/dL 12/21/17 12/21/17 12/22/17 Range/Units 17:24 21:07 07:35 WBC (3.8-10.6) k/uL Neutrophils # (1.3-7.7) k/uL Lymphocytes # (1.0-4.8) k/uL Sodium (137-145) mmol/L Carbon Dioxide (22-30) mmol/L BUN (7-17) mg/dL Glucose (74-99) mg/dL POC Glucose (mg/dL) 129 H 160 H 150 H (75-99) mg/dL Calcium (8.4-10.2) mg/dL Assessment and Plan Plan: ASSESSMENT: Small bowel obstruction, present on admission, suspect secondary to adhesions per CT Nausea and vomiting, secondary to above, resolved Diabetes mellitus, type II Hyperlipidemia Hypertension Paroxysmal atrial fibrillation, on long-term anticoagulation with Eliquis History of coronary artery disease History of CVA Dementia Osteoarthritis PLAN: General surgery, Dr. Rivera, on consult. Appreciate recommendations and input NPO. Continue NG tube Discontinue Eliquis for possible upcoming surgery. Begin heparin subcu Consult PT/OT for placement evaluation Home meds as appropriate Monitor labs GI prophylaxis: Protonix 40 mg IV Daily DVT prophylaxis: Eliquis on hold. Heparin 5000 units subcu every 8 hours. Monitor vital signs and address as appropriate Discharge planning: Patients daughter is requesting subacute rehab at the time of discharge. Requesting [facility]. Further recommendations pending patient's course Nurse practitioner note has been reviewed by physician. Signing provider agrees with the documented findings, assessment, and plan of care.
--- NOTE | 2017-12-22 12:16 | P.PN ---
Subjective Progress Note Date: 12/22/17 Pleasant 87-year-old female being seen at the bedside. Nursing inserted a nasogastric tube this morning with 2 liter return. Patient states her abdomen is less discomfort. Also noted improvement less distention. Patient states pain medication has been effective for pain control. Denies any dizziness lightheadedness chest pain. CAT scan of the abdomen done yesterday Show worsening mechanical small bowel obstruction. Patient has not had a bowel movement Objective - Vital Signs Vital signs: Vital Signs Temp 97.6 F 12/22/17 07:18 Pulse 102 H 12/22/17 07:18 Resp 14 12/22/17 07:18 BP 115/65 12/22/17 07:18 Pulse Ox 93 L 12/22/17 07:18 Intake & Output 12/21/17 12/22/17 12/22/17 18:59 06:59 18:59 Intake Total 450 500 Output Total 1200 Balance 450 500 -1200 Weight 71.668 kg Intake: Oral 450 500 Output: Gastric Drainage 1200 Other: # Voids 2 - Exam Physical exam 87-year-old female resting in bed with a nasogastric tube Suction denies chest pain shortness of breath dizziness lightheadedness states abdominal pain improved Lungs adequate air movement bilaterally no shortness of breath with conversation no cough noted heart S1-S2 audible positive murmur noted denying chest pain abdomen less distended no facial grimacing with palpitation to abdominal wall nasal gastric tube to intermittent suction brownish secretions noted in the canister no bowel tones no stool extremities no edema - Labs CBC & Chem 7: 12/21/17 11:32 12/21/17 11:32 Labs: Abnormal Lab Results - Last 24 Hours (Table) 12/21/17 12/21/17 12/21/17 Range/Units 11:32 11:32 11:57 WBC 12.0 H (3.8-10.6) k/uL Neutrophils # 10.3 H (1.3-7.7) k/uL Lymphocytes # 0.7 L (1.0-4.8) k/uL Sodium 136 L (137-145) mmol/L Carbon Dioxide 20 L (22-30) mmol/L BUN 45 H (7-17) mg/dL Glucose 159 H (74-99) mg/dL POC Glucose (mg/dL) 166 H (75-99) mg/dL Calcium 8.2 L (8.4-10.2) mg/dL 12/21/17 12/21/17 12/22/17 Range/Units 17:24 21:07 07:35 WBC (3.8-10.6) k/uL Neutrophils # (1.3-7.7) k/uL Lymphocytes # (1.0-4.8) k/uL Sodium (137-145) mmol/L Carbon Dioxide (22-30) mmol/L BUN (7-17) mg/dL Glucose (74-99) mg/dL POC Glucose (mg/dL) 129 H 160 H 150 H (75-99) mg/dL Calcium (8.4-10.2) mg/dL 12/22/17 Range/Units 11:50 WBC (3.8-10.6) k/uL Neutrophils # (1.3-7.7) k/uL Lymphocytes # (1.0-4.8) k/uL Sodium (137-145) mmol/L Carbon Dioxide (22-30) mmol/L BUN (7-17) mg/dL Glucose (74-99) mg/dL POC Glucose (mg/dL) 136 H (75-99) mg/dL Calcium (8.4-10.2) mg/dL Assessment and Plan Assessment: Impression Present on admission abdominal pain suspect small bowel obstruction likely due to adhesions per evidence of a CAT scan of the abdomen pelvis Persistent nausea vomiting secondary to #1 Paroxysmal atrial fibrillation on long-term anticoagulation elquis last taken 7 AM on the Plan Surgery will be on due to patient being on elquist which currently is on hold Continue nasogastric's tube to intermittent suction Pain control DVT and GI prophylaxis Will follow with you with further surgical recommendations pending clinical course The above impression and plan of care have been discussed and directed by signing physician. Zully Barnard nurse practitioner acting as scribe for signing physician.
[2017-12-22 17:43] LABS: Glucose,Whole Blood 114 mg/dL (75-99)
[2017-12-22] MEDS: HEPARIN SODIUM,PORCINE 5,000 UNIT/ML 1 ML VIAL SQ SCH (18:17)
[2017-12-22] MEDS: ATORVASTATIN 80 MG TAB PO SCH (20:15)
[2017-12-22] MEDS: DOCUSATE 100 MG CAP PO SCH (20:15)
[2017-12-22 20:25] LABS: Glucose,Whole Blood 106 mg/dL (75-99)
[2017-12-23] MEDS: HEPARIN SODIUM,PORCINE 5,000 UNIT/ML 1 ML VIAL SQ SCH ×4 (00:21→23:08)
[2017-12-23] MEDS: SODIUM CHLORIDE 0.9% 1,000 ML IV SCH ×2 (01:29→14:00)
[2017-12-23 07:19] LABS: Glucose,Whole Blood 93 mg/dL (75-99)
[2017-12-23] MEDS: INSULIN ASPART 100 UNIT/ML 1 ML 10 ML VIAL SQ SCH ×4 (07:53→20:54)
[2017-12-23] MEDS: FERROUS SULFATE 325 MG TAB PO SCH ×2 (07:53→17:16)
[2017-12-23] MEDS: metFORMIN 500 MG TAB PO SCH ×2 (07:53→17:22)
[2017-12-23] MEDS: PANTOPRAZOLE 40 MG/10 ML VIAL IV SCH (08:57)
[2017-12-23] MEDS: AMIODARONE 100 MG TAB PO SCH (08:57)
[2017-12-23] MEDS: CHOLECALCIFEROL 1,000 UNIT TAB PO SCH (08:57)
[2017-12-23] MEDS: MULTIVITAMINS, THERA 1 EACH TAB PO SCH (11:38)
--- NOTE | 2017-12-23 11:39 | P.PN ---
Subjective Progress Note Date: 12/23/17 87-year-old female seen on the unit sitting up in a chair nasal gastric tube to intermittent suction 400 out. Patient states slight improvement in abdominal pain this morning denies dizziness lightheadedness chest pain or shortness of breath. Afebrile no stool no nausea no vomiting Patients being followed surgical service for mechanical small bowel obstruction scheduled for exploratory laparotomy on December 24 Objective - Vital Signs Vital signs: Vital Signs Temp 97.5 F L 12/23/17 07:00 Pulse 104 H 12/23/17 07:00 Resp 17 12/23/17 07:00 BP 105/58 12/23/17 07:00 Pulse Ox 96 12/23/17 07:00 Intake & Output 12/22/17 12/23/17 12/23/17 18:59 06:59 18:59 Intake Total 1200 600 Output Total 2300 570 Balance -1100 30 Weight 71.668 kg Intake: Intake, IV Titration 560 600 Amount Sodium Chloride 0.9% 1, 560 600 000 ml @ 80 mls/hr IV . [id number] [facility] Rx#:[id number] Oral 640 Output: Gastric Drainage 2300 570 Other: # Voids 1 - Exam Physical exam 87-year-old female sitting up in a chair with a nasogastric tube to Suction denies chest pain shortness of breath dizziness lightheadedness Lungs adequate air movement bilaterally no shortness of breath with conversation no cough noted heart S1-S2 audible positive murmur noted denying chest pain abdomen less distended no facial grimacing with palpitation to abdominal wall nasal gastric tube to intermittent suction brownish secretions noted in the canister no bowel tones no stool a few hypoactive bowel tones extremities no edema - Labs CBC & Chem 7: 12/21/17 11:32 12/21/17 11:32 Labs: Abnormal Lab Results - Last 24 Hours (Table) 12/22/17 12/22/17 12/22/17 Range/Units 11:50 17:41 20:24 POC Glucose (mg/dL) 136 H 114 H 106 H (75-99) mg/dL Assessment and Plan Assessment: Impression Present on admission abdominal pain suspect small bowel obstruction likely due to adhesions per evidence of a CAT scan of the abdomen pelvis Persistent nausea vomiting secondary to #1 Paroxysmal atrial fibrillation on long-term anticoagulation elquis last taken 7 AM on the Plan Surgery will be on due to patient being on elquist which currently is on hold Continue nasogastric's tube to intermittent suction Pain control DVT and GI prophylaxis Will follow with you with further surgical recommendations pending clinical course Repeat labs in the morning The above impression and plan of care have been discussed and directed by signing physician. Zully Barnard nurse practitioner acting as scribe for signing physician.
[2017-12-23 11:57] LABS: Glucose,Whole Blood 78 mg/dL (75-99)
--- NOTE | 2017-12-23 15:53 | PN ---
PROGRESS NOTE DATE OF SERVICE: 12/23/2017 This is a pleasant 87-year-old white female who I seen on 12/23/2017. She has now received an NG tube which she has been feeling much better without any nausea or emesis. She has slight improvement of her abdominal pain and she states she did pass some gas throughout the evening. The patient, however, has been demonstrating an ileus with obstruction and with mechanical small bowel obstruction is scheduled for exploratory laparotomy on December 24. PHYSICAL EXAM: She is alert, oriented x3. She is actually more alert today than the previous day. NECK: Supple. No JVD. HEART: Regular rate and rhythm. LUNGS: Clear to auscultation. ABDOMEN with diminished bowel sounds all 4 quadrants and mild abdominal distention. Positive NG tube to suction with some coffee-ground material in the tubing. NEUROLOGICAL: Cranial nerves 2-12 grossly intact. HEART: Regular rate and rhythm with positive murmur. EXTREMITIES: No cyanosis, clubbing or jaundice. IMPRESSIONS: 1. Mechanical small bowel obstruction most likely secondary to adhesions, scheduled for exploratory laparotomy on 12/24/2017. 2. Improved nausea and vomiting with NG tube to suction. 3. Diabetes type 2, controlled. 4. Hypertension. 5. Hyperlipidemia. 6. Paroxysmal atrial fibrillation, currently in sinus rhythm currently with Eliquis on hold and on subcu heparin. 7. Coronary artery disease. 8. Advanced age with age related dementia. PLAN: As above. Hold Eliquis. Subcu heparin. The patient wishes to go to [facility] for rehab following surgery and postoperative course. Continue to monitor patient's overall guarded prognosis due to advanced age. Family is aware of the procedure to take place tomorrow. MMODL / IJN: [id number] /
[2017-12-23 17:13] LABS: Glucose,Whole Blood 93 mg/dL (75-99)
[2017-12-23 20:34] LABS: Glucose,Whole Blood 81 mg/dL (75-99)
[2017-12-23] MEDS: ATORVASTATIN 80 MG TAB PO SCH (20:55)
[2017-12-24] MEDS: SODIUM CHLORIDE 0.9% 1,000 ML IV SCH (02:04)
[2017-12-24 07:17] LABS: Glucose,Whole Blood 91 mg/dL (75-99)
[2017-12-24 08:48] LABS: Basophils % (A) 0 %; Eosinophils % (A) 0 %; HCT 33.6 % (34.0-46.0); HGB 10.9 gm/dL (11.4-16.0); Lymphocytes # (A) 0.6 k/uL (1.0-4.8); Lymphocytes % (A) 6 %; MCH 30.5 pg (25.0-35.0); MCHC 32.4 g/dL (31.0-37.0); Mean Platelet Volume 7.8; Monocytes # (A) 0.7 k/uL (0-1.0); Monocytes % (A) 7 %; Neutrophils # (A) 7.4 k/uL (1.3-7.7); Neutrophils % (A) 85 %; Platelet Count 309 k/uL (150-450); RBC 3.57 m/uL (3.80-5.40); RDW 14.2 % (11.5-15.5); WBC 8.8 k/uL (3.8-10.6)
[2017-12-24 09:00] LABS: Albumin 2.7 g/dL (3.5-5.0); Calcium 7.7 mg/dL (8.4-10.2); Potassium 3.8 mmol/L (3.5-5.1)
[2017-12-24] MEDS: FERROUS SULFATE 325 MG TAB PO SCH (09:40)
[2017-12-24] MEDS: INSULIN ASPART 100 UNIT/ML 1 ML 10 ML VIAL SQ SCH ×2 (09:40→18:24)
[2017-12-24] MEDS: AMIODARONE 100 MG TAB PO SCH (09:41)
[2017-12-24] MEDS: CHOLECALCIFEROL 1,000 UNIT TAB PO SCH (09:41)
[2017-12-24] MEDS: HEPARIN SODIUM,PORCINE 5,000 UNIT/ML 1 ML VIAL SQ SCH ×2 (09:41→16:54)
[2017-12-24] MEDS: PANTOPRAZOLE 40 MG/10 ML VIAL IV SCH (09:41)
[2017-12-24] MEDS: metFORMIN 500 MG TAB PO SCH (09:41)
[2017-12-24 10:35] LABS: Glucose,Whole Blood 97 mg/dL (75-99)
[2017-12-24] MEDS ORDERED: IV FLUID CONTINUATION 1,000 ML IV ONE (10:45)
[2017-12-24] MEDS ORDERED: HEPARIN SODIUM,PORCINE 5,000 UNIT/ML 1 ML VIAL SQ ONE (11:12)
--- NOTE | 2017-12-24 11:16 | P.PN ---
Progress Note - Text Progress Note Date: 12/24/17 I had a discussion with the family of the patient at the bedside, two daughters. Advised of rescinding the DNR, they are in agreement and understand the risks and benefits. All questions answered, surgeon also in agreement. Will go back to DNR after perioperative period.
[2017-12-24] MEDS ORDERED: LACTATED RINGERS 1,000 ML IV ONE ×4 (11:18→16:00)
[2017-12-24] MEDS ORDERED: GLYCOPYRROLATE 0.2 MG/ML 2 ML VIAL ONE (11:43)
[2017-12-24] MEDS ORDERED: NEOSTIGMINE 1 MG/ML 10 ML VIAL ONE (11:43)
[2017-12-24] MEDS ORDERED: SUCCINYLCHOLINE CHLORIDE 100 MG/5 ML SYR IV ONE (11:43)
[2017-12-24] MEDS ORDERED: ETOMIDATE 2 MG/ML 10 ML VIAL ONE (11:43)
[2017-12-24] MEDS ORDERED: fentaNYL (PF) 50 MCG/ML 2 ML AMP ONE (11:43)
[2017-12-24] MEDS ORDERED: ROCURONIUM BROMIDE 10 MG/ML 10 ML VIAL IV ONE (11:43)
[2017-12-24] MEDS ORDERED: MIDAZOLAM 2 MG/2 ML VIAL ONE (11:43)
[2017-12-24] MEDS ORDERED: LIDOCAINE 1% INJ 10MG/ML (20 ML MDV) ONE (11:43)
--- NOTE | 2017-12-24 12:06 | P.PN ---
Subjective Progress Note Date: 12/24/17 12/21/2017 87-year-old female who originally presented to the emergency room due to nausea and vomiting. Computed tomography scan revealed developing distal small bowel obstruction with transition point identified in the upper pelvis just right of the midline presumed product of adhesions. Chest x-ray was negative for an acute process. The patient did have an NG tube placed but according to nursing documentation and was pulled out by the patient on the morning of 12/20/2017. The patient's NG tube was not reinserted per physician order. The patient denied any further episodes of vomiting. She denies nausea at this time. She is tolerating a clear liquid diet. The patient does have good bowel sounds. She denies passing flatus. Denies bowel movement. Abdomen is soft, but does remain distended. Daughter is at the bedside who reports patient's abdomen is larger than her baseline. Patient's vital signs are stable. Temperature this morning at 9.1. Blood pressure 105/62. She is on room air with oxygen saturations greater than 92%. The patient's daughter would like the patient to be discharged to rehab when she is stable and is requesting [facility]. 12/22/2017 Patient seen and examined at the bedside. patient underwent computed tomography scan of the abdomen yesterday which revealed worsening mechanical small bowel obstruction. Patient had an NG tube placed this morning with immediate 1200 mL of drainage. Since insertion the patient has had approximately an additional 1000 mL of drainage. patient's abdomen is less distended today in comparison to yesterday. Patient states her pain has been tolerable. She denies shortness of breath or chest pain. patient's blood pressure is stable. 115/65. She is on room air with an oxygen saturation greater than 92%. The patient is slightly tachycardic with a heart rate in the low 100s. 12/23/2017-Note per Dr. Rivera 12/24/2017 Patient seen and examined at the bedside. Patient is NPO this morning. She is scheduled for exploratory laparotomy this morning. Eliquis remains on hold for OR. Vital signs remain stable. Objective - Vital Signs Vital signs: Vital Signs Temp 97.4 F L 12/24/17 10:13 Pulse 101 H 12/24/17 10:13 Resp 18 12/24/17 10:13 BP 134/62 10/18/18 10:13 Pulse Ox 97 12/24/17 10:13 Intake & Output 12/23/17 12/24/17 12/24/17 18:59 06:59 18:59 Intake Total 600 175 Output Total 200 250 Balance -200 350 175 Intake: IV 175 Intake, IV Titration 600 Amount Sodium Chloride 0.9% 1, 600 000 ml @ 80 mls/hr IV . [id number] [facility] Rx#:[id number] Output: Gastric Drainage 200 250 Other: # Voids 1 1 1 - Exam GENERAL: This is a 87-year-old female in no apparent distress at the time of examination. Pleasant and cooperative. HEENT: Head is atraumatic, normocephalic. Pupils are equal, round, and reactive to light. Sclerae anicteric. Conjunctivae are clear. Mucus membranes of the mouth are moist. Neck is supple. RESPIRATORY: Clear to ausculation. No wheezes, rales, or rhonchi. No use of accessory muscles. Patient maintaining oxygen saturation greater than 92%. No chest wall tenderness is noted on palpation or with deep breathing. CARDIOVASCULAR: Regular rate and rhythm, slightly tachycardic. Systolic murmur.S1 and S2 noted. No JVD noted. No S3 or S4 noted. GASTROINTESTINAL: Abdomen soft and round. abdominal distention improved since yesterday. Bowel sounds auscultated x 4 quadrants. NG tube to low intermittent suction. No pain or tenderness noted upon palpation. INTEGUMENTARY: No cyanosis. No jaundice. No rashes noted. No cellulitis noted. EXTREMITIES: 2+ peripheral pulses. No evidence of peripheral edema. No calf tenderness noted. NEUROLOGIC: Cranial nerves II-XII intact. PSYCHIATRIC: Awake, alert, and oriented X 2-3. Appropriate affect. - Labs CBC & Chem 7: 12/24/17 07:52 12/24/17 07:52 Labs: Abnormal Lab Results - Last 24 Hours (Table) 12/24/17 12/24/17 Range/Units 07:52 07:52 RBC 3.57 L (3.80-5.40) m/uL Hgb 10.9 L (11.4-16.0) gm/dL Hct 33.6 L (34.0-46.0) % Lymphocytes # 0.6 L (1.0-4.8) k/uL Chloride 114 H (98-107) mmol/L Carbon Dioxide 15 L (22-30) mmol/L BUN 47 H (7-17) mg/dL Calcium 7.7 L (8.4-10.2) mg/dL Total Protein 5.0 L (6.3-8.2) g/dL Albumin 2.7 L (3.5-5.0) g/dL Assessment and Plan Plan: ASSESSMENT: Small bowel obstruction, present on admission, suspect secondary to adhesions per CT Nausea and vomiting, secondary to above, resolved Diabetes mellitus, type II Hyperlipidemia Hypertension Paroxysmal atrial fibrillation, on long-term anticoagulation with Eliquis History of coronary artery disease History of CVA Dementia Osteoarthritis PLAN: General surgery, Dr. Rivera, on consult. Appreciate recommendations and input Patient scheduled for exploratory laparotomy today NPO. Continue NG tube Eliquis on hold for surgery today. Will resume postoperatively Consult PT/OT for placement evaluation Home meds as appropriate Monitor labs GI prophylaxis: Protonix 40 mg IV Daily DVT prophylaxis: Eliquis on hold. Heparin 5000 units subcu every 8 hours. Monitor vital signs and address as appropriate Discharge planning: Patients daughter is requesting subacute rehab at the time of discharge. Requesting [facility]. Further recommendations pending patient's course Nurse practitioner note has been reviewed by physician. Signing provider agrees with the documented findings, assessment, and plan of care.
[2017-12-24] MEDS ORDERED: SODIUM CHLORIDE 0.9% 50 ML with ceFAZolin 2,000 MG IV ONE ×2 (12:14)
[2017-12-24] MEDS ORDERED: HYDROmorphone 1 MG/ML 1 ML SYRINGE IVP PRN (12:34)
[2017-12-24] MEDS ORDERED: METOCLOPRAMIDE 5 MG/ML 2 ML VIAL IVP PRN (12:34)
[2017-12-24] MEDS ORDERED: ONDANSETRON 4 MG/2 ML VIAL IVP PRN (12:34)
[2017-12-24] MEDS ORDERED: NALOXONE 0.4 MG/ML 1 ML VIAL IV PRN (12:34)
--- NOTE | 2017-12-24 12:39 | P.OP ---
Date of Procedure: 12/24/17 Preoperative Diagnosis: Small bowel obstruction Postoperative Diagnosis: Small bowel obstruction Procedure(s) Performed: Exploratory laparotomy with lysis of adhesions Anesthesia: JEAN Surgeon: Clifford Rivera Estimated Blood Loss (ml): 10 Pathology: none sent Condition: stable Disposition: PACU Description of Procedure: Patient's placed on the operative table in the supine position. She received general anesthesia. Her abdomen was prepped and draped in usual sterile fashion. A midline skin incision was made and then the abdomen was entered through the midline. The Bookwalter placed a wound. The small bowel appeared dilated. The small bowel was followed towards the pelvis and in the left pelvis there was a adhesive band creating a closed loop obstruction. The band was lysed. The small bowel appeared slightly hemorrhagic. However it appeared viable. There is no evidence of necrosis. The abdomen was irrigated. The fascia was closed with looped #1 PDS suture. Skin was closed edward. Patient was sent to recovery room in stable condition.
[2017-12-24] MEDS ORDERED: PHENYLEPHRINE 40 MG in SODIUM CHLORIDE 0.9% 250 ML IV SCH (13:00)
[2017-12-24 13:51] LABS: Glucose,Whole Blood 137 mg/dL (75-99)
[2017-12-24] MEDS ORDERED: IPRATROPIUM-ALBUTEROL 3 ML NEB INHALATION PRN (13:56)
[2017-12-24] MEDS: LACTATED RINGERS 1,000 ML IV SCH ×6 (14:23→19:00)
[2017-12-24] MEDS: PIPERACILLIN-TAZOBACTAM 3.375 GM in DEXTROSE/WATER 1 50ML.BAG IVPB SCH ×2 (14:24→21:06)
[2017-12-24 14:29] LABS: ABG Base Excess -14.8 mmol/L; ABG HCO3 14 mmol/L (21-25); ABG Oxygen Saturation 97.6 % (94-97); ABG PCO2 37 mmHg (35-45); ABG PO2 115 mmHg (83-108); ABG TCO2 15 mmol/L (19-24)
[2017-12-24 14:32] LABS: ABG PH 7.18 (7.35-7.45)
[2017-12-24] MEDS ORDERED: SODIUM BICARB 8.4% 50 ML SYR (1 MEQ/ML) IV ONE (14:36)
[2017-12-24 14:38] LABS: Albumin 2.6 g/dL (3.5-5.0); Calcium 7.5 mg/dL (8.4-10.2); Total Bilirubin 0.6 mg/dL (0.2-1.3); Total Protein 4.8 g/dL (6.3-8.2)
[2017-12-24] MEDS: NOREPINEPHRINE 4 MG in SODIUM CHLORIDE 0.9% 250 ML IV SCH (14:47)
[2017-12-24 14:58] LABS: Basophils % (A) 0 %; Eosinophils % (A) 0 %; HCT 33.4 % (34.0-46.0); Hypochromasia Slight; Lymphocytes # (A) 1.9 k/uL (1.0-4.8); Lymphocytes % (A) 13 %; MCH 32.2 pg (25.0-35.0); MCHC 32.9 g/dL (31.0-37.0); Mean Platelet Volume 7.7; Monocytes # (A) 0.8 k/uL (0-1.0); Monocytes % (A) 5 %; Neutrophils # (A) 12.1 k/uL (1.3-7.7); Neutrophils % (A) 82 %; Platelet Count 394 k/uL (150-450); RBC 3.41 m/uL (3.80-5.40); RDW 14.1 % (11.5-15.5); WBC 14.8 k/uL (3.8-10.6)
[2017-12-24] MEDS: DEXTROSE 5% IN WATER 1,000 ML with SODIUM BICARB (1 MEQ/ML) 100 ML IV SCH (15:23)
--- NOTE | 2017-12-24 15:30 | XR ---
EXAMINATION TYPE: XR chest 1V portable DATE OF EXAM: 12/24/2017 COMPARISON: 12/19/2017 HISTORY: Shortness of breath. Follow-up exam. TECHNIQUE: Single frontal view of the chest is obtained. FINDINGS: There are new bibasilar opacities and new blunting of the costophrenic angles. Cardiac stephanie houette is again enlarged. Enteric tube appears appropriately placed. Multilevel mild degenerative ch anges of the thoracic spine are present. No sizable pneumothorax. IMPRESSION: New bilateral small pleural effusions and associated bibasilar airspace disease, likely atelectasis. Cardiogenic fluid overload should be considered as there is cardiomegaly.
[2017-12-24] MEDS: IPRATROPIUM-ALBUTEROL 3 ML NEB INHALATION SCH ×3 (15:37→23:05)
--- NOTE | 2017-12-24 15:37 | P.CNPUL ---
History of Present Illness Consult date: 12/24/17 Requesting physician: Clifford Rivera Reason for consult: dyspnea, hypoxemia, other Chief complaint: Small bowel obstruction, status post explor. lap with lysis of adhesions History of present illness: This is a 87-year-old white female patient of Dr. Rivera who presented to the emergency department originally on 12/19/2017 for evaluation of abdominal distention, nausea and vomiting with coffee ground emesis. Labs revealed some leukocytosis, and elevated transaminases. Computed tomography scan of the abdomen and pelvis was consistent with a small bowel obstruction with transition point in the low pelvis concerning for adhesions. NG tube was inserted for decompression, patient started to improve, her nausea, vomiting resolved, NG-tube was removed by the patient, and patient was started on clear liquid diet. Patient had ongoing abdominal distention, she was not passing any bowel movements or flatus, and on 12/22/2017 she underwent repeat computed tomography scan of the abdomen which revealed worsening mechanical small bowel obstruction, NG tube was reinserted, with large output from it. Patient was on Eliquis for her history of atrial fibrillation, it was placed on hold, and patient underwent exploratory laparotomy with lysis of adhesions today on [address] Rivera. Patient was asked status DO NOT RESUSCITATE preop, which was revoked for the surgery, and reinstituted after the surgery. Patient was extubated in the OR, she was then transferred to the intensive care unit, on 15 L of oxygen per simple mask, she is hypoxemic, with a pulse ox of 84%, her respirations are labored, patient is using her accessory muscles of breathing, she is quite obtunded, hypotensive, with blood pressure of 86/40, on 150 mics/ min of Foster-Synephrine. Patient was immediately placed on BiPAP support with pressures of 12/6, and FiO2 of 100%. IV fluid boluses were started, patient will be given 2 L of lactated Ringer's, levo fed will be started for vasopressor support. Stat blood work has been sent, CBC, CMP, stat blood gas was obtained, and showed pO2 of 115, pCO2 of 36, and pH of 7.17, consistent with metabolic acidosis. Chest x-ray back from 12/19/2017 showed no acute process, will obtain a repeat chest x-ray. Patient is oliguric. Patient is starting to wake up and open her eyes. NG tube is in place to low intermittent suction. Mid abdominal incision is covered with a surgical dressing, and dry intact. He is past medical history includes diabetes mellitus type 2, hypertension, hyperlipidemia, paroxysmal atrial fibrillation, urinary artery disease, history of CVA with left-sided weakness, dementia, osteoarthritis, valvular heart disease including severe aortic valve stenosis, prior history of myocardial infarction, GI bleeding, osteoarthritis, chronic anemia. Review of Systems All systems: negative Constitutional: Denies chills, Denies fever Eyes: denies blurred vision, denies pain Ears, nose, mouth and throat: Denies headache, Denies sore throat Cardiovascular: Denies chest pain, Denies shortness of breath Respiratory: Denies cough Gastrointestinal: Reports bloating, Reports change in bowel habits, Reports coffee ground emesis, Denies abdominal pain, Denies diarrhea, Denies nausea, Denies vomiting Genitourinary: Denies dysuria, Denies hematuria Musculoskeletal: Denies myalgias Integumentary: Denies pruritus, Denies rash Neurological: Denies numbness, Denies weakness Psychiatric: Denies anxiety, Denies depression Endocrine: Denies fatigue, Denies weight change Past Medical History Past Medical History: Atrial Fibrillation, Coronary Artery Disease (CAD), CVA/ TIA, Dementia, Diabetes Mellitus, GI Bleed, Hyperlipidemia, Hypertension, Myocardial Infarction (ID), Osteoarthritis (OA) Additional Past Medical History / Comment(s): Prolapsed mitral valve, "leaky" aortic valve, left sided weakness from stroke in July 2016, [facility] Last Myocardial Infarction Date:: 2006? History of Any Multi-Drug Resistant Organisms: None Reported Past Surgical History: Hysterectomy Additional Past Surgical History / Comment(s): angioplasty Past Anesthesia/Blood Transfusion Reactions: No Reported Reaction Past Psychological History: No Psychological Hx Reported Smoking Status: Never smoker Past Alcohol Use History: None Reported Past Drug Use History: None Reported - Past Family History Mother Additional Family Medical History / Comment(s): Brain An. Father Family Medical History: CVA/TIA Sister(s) Family Medical History: Diabetes Mellitus Additional Family Medical History / Comment(s): Cardiac issues Brother(s) Family Medical History: Diabetes Mellitus Additional Family Medical History / Comment(s): cardiac issues Medications and Allergies Home Medications Medication Instructions Recorded Confirmed Type Cholecalciferol [Vitamin D3] 1,000 unit PO DAILY 05/14/17 10/14/18 History Docusate [Colace] 100 mg PO Q48H 07/20/16 12/20/17 History Multivitamins, Thera [Multivitamin 1 tab PO DAILY 07/20/16 12/20/17 History (formulary)] Apixaban [Eliquis] 2.5 mg PO BID #60 tab 08/18/16 12/20/17 Rx metFORMIN HCL [Metformin HCl] 500 mg PO AC-BID #60 tablet 08/18/16 12/20/17 Rx Atorvastatin [Lipitor] 80 mg PO HS 11/19/16 12/20/17 History Amiodarone [Cordarone] 100 mg PO DAILY #30 tab 12/31/16 12/20/17 Rx Cla 1 tab PO DAILY 02/22/17 12/20/17 History L.acidoph,Paracasei, B.lactis 1 cap PO Q48H 02/22/17 12/20/17 History [Probiotic] Ferrous Sulfate [Iron (65 MG 325 mg PO AC-BID 12/19/17 12/20/17 History Elemental)] Pantoprazole Sodium [Protonix] 40 mg PO DAILY@1200 12/19/17 12/20/17 History Tolterodine Tartrate [Detrol LA] 4 mg PO DAILY 12/19/17 12/20/17 History Allergies Allergy/AdvReac Type Severity Reaction Status Date / Time latex Allergy Rash/Hives Verified 12/24/17 10:33 Sulfa (Sulfonamide AdvReac Nausea & Verified 12/24/17 10:33 Antibiotics) Vomiting Physical Exam Vitals: Vital Signs Temp Pulse Pulse Pulse Pulse Pulse Resp 12/24/17 14:30 100 21 12/24/17 14:20 100 23 12/24/17 14:10 101 H 42 H 12/24/17 14:00 98 23 12/24/17 13:50 97.8 F 95 24 12/24/17 13:41 95 30 H 12/24/17 13:15 96 18 12/24/17 13:00 96 18 12/24/17 12:41 97 F L 103 H 20 12/24/17 12:32 98 28 H 12/24/17 10:13 97.4 F L 101 H 18 12/24/17 08:13 97.6 F 98 28 H 12/24/17 01:02 97.5 F L 106 H 17 12/23/17 19:48 98.6 F 101 H 96 18 12/23/17 15:41 97.8 F 99 18 BP Pulse Ox 12/24/17 14:30 95 12/24/17 14:20 95 12/24/17 14:10 96 12/24/17 14:00 12/24/17 13:50 85 L 12/24/17 13:41 12/24/17 13:15 105/49 93 L 12/24/17 13:00 90/40 88 L 12/24/17 12:41 121/42 86 L 12/24/17 12:32 12/24/17 10:13 134/62 97 12/24/17 08:13 128/64 12/24/17 01:02 116/68 96 12/23/17 19:48 109/67 12/23/17 15:41 108/58 97 Intake and Output 12/23/17 12/24/17 12/24/17 22:59 06:59 14:59 Intake Total 623 456 3225 Output Total 200 250 560 Balance 40 110 640 Intake: IV 1200 Intake, IV Titration 240 360 Amount Sodium Chloride 0.9% 1, 240 360 000 ml @ 80 mls/hr IV . [id number] [facility] Rx#:[id number] Output: Gastric Drainage 200 250 Urine 550 Estimated Blood Loss 10 Other: Voiding Method Diaper # Voids 1 1 ABP, PAP, CO, CI - Last 8 Hours Arterial Blood Pressure 109/47 Arterial Blood Pressure 121/52 Arterial Blood Pressure 127/52 Arterial Blood Pressure 97/46 Arterial Blood Pressure 86/40 GENERAL EXAM: Poorly responsive, 87-year-old white female, on simple mask, with FiO2 currently at 15 L/m, with labored respirations, currently using abdominal, and supraclavicular accessory muscles of breathing, in apparent respiratory distress, hypoxemia, with a pulse ox of 84%. HEAD: Normocephalic/atraumatic. EYES: Normal reaction of pupils, equal size. Conjunctiva pink, sclera white. NOSE: Clear with pink turbinates. NG tube is in place, to low intermittent suction THROAT: No erythema or exudates. NECK: No masses, no JVD, no thyroid enlargement, no adenopathy. CHEST: No chest wall deformity. Symmetrical expansion. LUNGS: Equal air entry with crackles. Diminished breath sounds bilaterally CVS: Regular rate and rhythm, normal S1 and S2, no gallops, loud systolic murmur auscultated throughout the precordium, loudest at the right second ICS midclavicular line ABDOMEN: Soft. No hepatosplenomegaly, mid abdominal incision is covered with a surgical dressing. Bowel sounds are hypoactive EXTREMITIES: No clubbing, no edema, no cyanosis, 2+ pulses and upper and lower extremities. MUSCULOSKELETAL: Muscle strength and tone normal. SPINE: No scoliosis or deformity SKIN: No rashes CENTRAL NERVOUS SYSTEM: Unable to assess, patient is obtunded, poorly responsive , left pupil is noted to be larger than the right, 3 and 1 100 respectively. Results - Laboratory Findings CBC and BMP: 12/24/17 07:52 12/24/17 14:10 ABG ABG pH 7.18 (7.35-7.45) L* 12/24/17 14:25 ABG pCO2 37 mmHg (35-45) 12/24/17 14:25 ABG pO2 115 mmHg (83-108) H 12/24/17 14:25 ABG O2 Saturation 97.6 % (94-97) H 12/24/17 14:25 Abnormal lab findings: Abnormal Labs 12/19/17 12/19/17 12/20/17 21:00 21:00 00:19 WBC 18.1 H RBC Hgb Hct Neutrophils # 16.0 H Lymphocytes # ABG pH ABG pO2 ABG HCO3 ABG Total CO2 ABG O2 Saturation Sodium 135 L Potassium Chloride Carbon Dioxide 21 L BUN 37 H Glucose 156 H POC Glucose (mg/dL) 164 H Calcium Total Bilirubin 1.4 H Total Protein Albumin Urine Protein Urine Ketones 12/20/17 12/20/17 12/20/17 05:25 06:11 06:11 WBC 16.5 H RBC Hgb Hct Neutrophils # 14.0 H Lymphocytes # ABG pH ABG pO2 ABG HCO3 ABG Total CO2 ABG O2 Saturation Sodium 136 L Potassium 5.3 H Chloride Carbon Dioxide 20 L BUN 41 H Glucose 138 H POC Glucose (mg/dL) 150 H Calcium Total Bilirubin 1.5 H Total Protein 6.0 L Albumin 3.4 L Urine Protein Urine Ketones 12/20/17 12/20/17 12/20/17 12:28 13:42 17:28 WBC RBC Hgb Hct Neutrophils # Lymphocytes # ABG pH ABG pO2 ABG HCO3 ABG Total CO2 ABG O2 Saturation Sodium Potassium Chloride Carbon Dioxide BUN Glucose POC Glucose (mg/dL) 152 H 140 H 131 H Calcium Total Bilirubin Total Protein Albumin Urine Protein Urine Ketones 12/20/17 12/20/17 12/21/17 19:21 22:44 07:22 WBC RBC Hgb Hct Neutrophils # Lymphocytes # ABG pH ABG pO2 ABG HCO3 ABG Total CO2 ABG O2 Saturation Sodium Potassium Chloride Carbon Dioxide BUN Glucose POC Glucose (mg/dL) 175 H 145 H Calcium Total Bilirubin Total Protein Albumin Urine Protein Trace H Urine Ketones 1+ H 12/21/17 12/21/17 12/21/17 11:32 11:32 11:57 WBC 12.0 H RBC Hgb Hct Neutrophils # 10.3 H Lymphocytes # 0.7 L ABG pH ABG pO2 ABG HCO3 ABG Total CO2 ABG O2 Saturation Sodium 136 L Potassium Chloride Carbon Dioxide 20 L BUN 45 H Glucose 159 H POC Glucose (mg/dL) 166 H Calcium 8.2 L Total Bilirubin Total Protein Albumin Urine Protein Urine Ketones 12/21/17 12/21/17 12/22/17 17:24 21:07 07:35 WBC RBC Hgb Hct Neutrophils # Lymphocytes # ABG pH ABG pO2 ABG HCO3 ABG Total CO2 ABG O2 Saturation Sodium Potassium Chloride Carbon Dioxide BUN Glucose POC Glucose (mg/dL) 129 H 160 H 150 H Calcium Total Bilirubin Total Protein Albumin Urine Protein Urine Ketones 12/22/17 12/22/17 12/22/17 11:50 17:41 20:24 WBC RBC Hgb Hct Neutrophils # Lymphocytes # ABG pH ABG pO2 ABG HCO3 ABG Total CO2 ABG O2 Saturation Sodium Potassium Chloride Carbon Dioxide BUN Glucose POC Glucose (mg/dL) 136 H 114 H 106 H Calcium Total Bilirubin Total Protein Albumin Urine Protein Urine Ketones 12/24/17 12/24/17 12/24/17 07:52 07:52 13:39 WBC RBC 3.57 L Hgb 10.9 L Hct 33.6 L Neutrophils # Lymphocytes # 0.6 L ABG pH ABG pO2 ABG HCO3 ABG Total CO2 ABG O2 Saturation Sodium Potassium Chloride 114 H Carbon Dioxide 15 L BUN 47 H Glucose POC Glucose (mg/dL) 137 H Calcium 7.7 L Total Bilirubin Total Protein 5.0 L Albumin 2.7 L Urine Protein Urine Ketones 12/24/17 12/24/17 14:10 14:25 WBC RBC Hgb Hct Neutrophils # Lymphocytes # ABG pH 7.18 L* ABG pO2 115 H ABG HCO3 14 L ABG Total CO2 15 L ABG O2 Saturation 97.6 H Sodium Potassium Chloride 114 H Carbon Dioxide 13 L BUN 45 H Glucose 139 H POC Glucose (mg/dL) Calcium 7.5 L Total Bilirubin Total Protein 4.8 L Albumin 2.6 L Urine Protein Urine Ketones - Diagnostic Findings Chest x-ray: report reviewed, image reviewed CT scan - chest: report reviewed Assessment and Plan Plan: Assessment: #1. Acute small bowel obstruction, status post exploratory laparotomy with lysis of adhesions, postop day 0 #2. Acute hypoxemic respiratory failure likely secondary to VQ mismatch, anesthetic drug administration during surgery #3. Anion gap metabolic acidosis, suspect lactic acidosis related to hypoperfusion #4. Leukocytosis, likely reactive to surgery or graft #5. Hypotension related to hypovolemic shock secondary to small bowel obstruction #6. Paroxysmal atrial fibrillation, on long-term anticoagulation with Eliquis, which is currently on hold for surgery, currently in sinus rhythm #7. Hypertension, hyperlipidemia, diabetes mellitus type 2 #8. Severe aortic stenosis #9. History of coronary artery disease #10. History of right-sided CVA with left-sided residual weakness #11. Dementia #12. Osteoarthritis Plan: We'll give the patient 2 L of IV bolus of lactated Ringer's, we will start levofed for vasopressor support, we will wean the Foster-Synephrine. Blood gases were reviewed, patient will be given 2 A of sodium bicarb, and she will be started on D5 W with 2 A of bicarb at a rate of 75 ML per hour, maintenance lactated Ringer's will be cut back to 50 ML per hour, continue BiPAP support with pressures of 12 and 6 and FiO2 to keep O2 sat at 92% or higher. Patient's CODE STATUS is DO NOT RESUSCITATE. We will continue with supportive treatment. We'll obtain a stat chest x-ray. Continue GI and DVT prophylaxis. We'll obtain a stat lactic acid level. Patient is critically ill. We'll continue to closely follow. I performed a history & physical examination of the patient and discussed their management with my nurse practitioner, Sarah Gunn. I reviewed the nurse practitioner's note and agree with the documented findings and plan of care. Lung sounds are diminished, with bibasilar crackles. The findings and the impression was discussed with the patient. I attest to the documentation by the nurse practitioner. Time with Patient: Greater than 30
[2017-12-24 16:17] LABS: ABG Base Excess -10.2 mmol/L; ABG HCO3 15 mmol/L (21-25); ABG Oxygen Saturation 98.4 % (94-97); ABG PCO2 27 mmHg (35-45); ABG PH 7.36 (7.35-7.45); ABG PO2 238 mmHg (83-108); ABG TCO2 16 mmol/L (19-24)
[2017-12-24 18:30] LABS: Glucose,Whole Blood 180 mg/dL (75-99)
[2017-12-24 23:30] LABS: Magnesium 1.8 mg/dL (1.6-2.3); Potassium 3.2 mmol/L (3.5-5.1)
[2017-12-24] MEDS ORDERED: Potassium Replacement Protocol 1 EACH MISC MISCELLANE PRN (23:35)
[2017-12-24] MEDS ORDERED: Magnesium Replacement Protocol 1 EACH MISC MISCELLANE PRN (23:35)
[2017-12-24] MEDS: MAGNESIUM SULFATE-D5W PMX 1 GM in DEXTROSE/WATER 1 100ML.BAG IVPB SCH (23:59)
[2017-12-25] MEDS: POTASSIUM CHLORIDE 10 MEQ in WATER FOR INJECTION 1 100ML.BAG IVPB SCH ×6 (00:05→14:42)
[2017-12-25 00:13] LABS: Glucose,Whole Blood 193 mg/dL (75-99)
[2017-12-25] MEDS: INSULIN ASPART 100 UNIT/ML 1 ML 10 ML VIAL SQ SCH ×5 (00:59→21:24)
[2017-12-25] MEDS: HEPARIN SODIUM,PORCINE 5,000 UNIT/ML 1 ML VIAL SQ SCH ×3 (00:59→16:37)
[2017-12-25] MEDS: MAGNESIUM SULFATE-D5W PMX 1 GM in DEXTROSE/WATER 1 100ML.BAG IVPB SCH (01:23)
[2017-12-25] MEDS: IPRATROPIUM-ALBUTEROL 3 ML NEB INHALATION SCH ×6 (03:24→23:43)
[2017-12-25 04:45] LABS: Basophils % (A) 0 %; Eosinophils % (A) 0 %; HCT 30.4 % (34.0-46.0); HGB 10.2 gm/dL (11.4-16.0); Lymphocytes # (A) 0.5 k/uL (1.0-4.8); Lymphocytes % (A) 6 %; MCH 30.8 pg (25.0-35.0); MCHC 33.5 g/dL (31.0-37.0); Mean Platelet Volume 7.7; Monocytes # (A) 0.8 k/uL (0-1.0); Monocytes % (A) 9 %; Neutrophils # (A) 7.3 k/uL (1.3-7.7); Neutrophils % (A) 83 %; Platelet Count 294 k/uL (150-450); RDW 14.1 % (11.5-15.5); WBC 8.8 k/uL (3.8-10.6)
[2017-12-25 05:24] LABS: Albumin 2.4 g/dL (3.5-5.0); Calcium 7.5 mg/dL (8.4-10.2); Potassium 3.9 mmol/L (3.5-5.1); Total Bilirubin 0.7 mg/dL (0.2-1.3); Total Protein 4.5 g/dL (6.3-8.2)
[2017-12-25 06:34] LABS: Glucose,Whole Blood 184 mg/dL (75-99)
[2017-12-25] MEDS: PIPERACILLIN-TAZOBACTAM 3.375 GM in DEXTROSE/WATER 1 50ML.BAG IVPB SCH ×3 (06:37→21:24)
[2017-12-25 06:47] LABS: ABG Base Excess 1.4 mmol/L; ABG HCO3 25 mmol/L (21-25); ABG Oxygen Saturation 98.4 % (94-97); ABG PCO2 32 mmHg (35-45); ABG PO2 161 mmHg (83-108); ABG TCO2 26 mmol/L (19-24)
--- NOTE | 2017-12-25 06:54 | P.PN ---
Subjective Progress Note Date: 12/25/17 Principal diagnosis: Respiratory failure Progress note dated 12/25/2017 87-year-old female, postop day #1, status post exploratory laparotomy with lysis of adhesions. The patient has hypoxemic respiratory failure requiring BiPAP therapy, anion gap metabolic acidosis profound hypotension, paroxysmal atrial fibrillation history is of essential hypertension hyperlipidemia diabetes , severe aortic stenosis, CAD, previous right-sided CVA with left-sided weakness , dementia and DJD. She arrived from the recovery area very unstable yesterday to the ICU. Her saturations were in the low 80s on 15 L high flow. In addition , the patient was on high dose of Foster-Synephrine and the blood pressure was only about 80 systolic. We quickly delivered some additional fluids. We also gave her 2 A of sodium bicarbonate and started a bicarbonate drip. In addition , we placed her on BiPAP with IPAP of 12 and EPAP of 6. The Foster-Synephrine was converted to norepinephrine. Currently, she is much more stable although her overall prognosis is guarded. She is a no code patient. I did have an opportunity to speak to the surgeon yesterday. In addition, I did speak to both daughters yesterday. They understand the gravity of the situation. This morning, we'll repeat a blood gas. We may be up. The sodium bicarbonate drip. We'll see for can wean off the norepinephrine by giving her some additional fluids. We'll review the labs x-rays and medications. Objective - Vital Signs Vital signs: Vital Signs Temp 99.1 F 12/25/17 04:00 Pulse 98 12/25/17 06:00 Resp 23 12/25/17 06:00 BP 105/49 12/24/17 13:15 Pulse Ox 99 12/25/17 06:00 Intake & Output 12/24/17 12/24/17 12/25/17 06:59 18:59 06:59 Intake Total 600 1573.75 5214.875 Output Total 250 640 350 Balance 350 933.75 4864.875 Intake: IV 1500 5108 Dextrose 5% in Water 1, 300 825 000 ml @ 75 mls/hr IV . [id number] EPIFANIO with Sodium Bicarb (1 Meq/ml) 100 ml Rx#:[id number] Lactated Ringers 1,000 ml 600 @ 50 mls/hr IV .Q20H [facility] Rx#:[id number] Lactated Ringers 1,000 ml 3000 @ 999 mls/hr IV .Q1H1M [facility] Rx#:[id number] Magnesium Sulfate-D5w Pmx 200 1 gm In Dextrose/Water 1 100ml.bag @ 100 mls/hr IVPB Q1H [facility] Rx#: [id number] Piperacillin-Tazobactam 3 50 .375 gm In Dextrose/Water 1 50ml.bag @ 12.5 mls/hr IVPB Q8H [facility] Rx#: [id number] Potassium Chloride 10 meq 400 In Water For Injection 1 100ml.bag @ 100 mls/hr IVPB Q1HR [facility] Rx#: [id number] pressure bag 33 Intake, IV Titration 600 73.75 106.875 Amount Norepinephrine 4 mg In 73.75 106.875 Sodium Chloride 0.9% 250 ml @ Titrate IV .Q0M [facility] Rx#:[id number] Sodium Chloride 0.9% 1, 600 000 ml @ 80 mls/hr IV . [id number] [facility] Rx#:[id number] Output: Gastric Drainage 250 Urine 630 350 Estimated Blood Loss 10 Other: Voiding Method Diaper Indwelling Catheter # Voids 1 1 ABP, PAP, CO, CI - Last Documented Arterial Blood Pressure 110/49 - Exam No acute distress, sleeping, with BiPAP mask in place. No obvious respiratory distress. HEENT examination is grossly unremarkable. Mucous membranes are moist. Neck supple. Full range of motion. No adenopathy thyromegaly or neck vein distention. Cardiovascular examination reveals regular rhythm rate. S1-S2 normal. No S3 or S4. They are systolic murmurs noted consistent with her known history of aortic stenosis. Lungs reveal bilateral rhonchi and a few crackles. Breath sounds equal bilaterally. No wheezes appreciated. Abdomen soft without bowel sounds. Extremities are intact. No cyanosis clubbing or edema. Skin is without rash or lesion. Neurologic examination is difficult to assess at this time. - Labs CBC & Chem 7: 12/25/17 04:30 12/25/17 04:30 Labs: Abnormal Lab Results - Last 24 Hours (Table) 12/24/17 12/24/17 12/24/17 Range/Units 07:52 07:52 13:39 WBC (3.8-10.6) k/uL RBC 3.57 L (3.80-5.40) m/uL Hgb 10.9 L (11.4-16.0) gm/dL Hct 33.6 L (34.0-46.0) % Neutrophils # (1.3-7.7) k/uL Lymphocytes # 0.6 L (1.0-4.8) k/uL ABG pH (7.35-7.45) ABG pCO2 (35-45) mmHg ABG pO2 (83-108) mmHg ABG HCO3 (21-25) mmol/L ABG Total CO2 (19-24) mmol/L ABG O2 Saturation (94-97) % Potassium (3.5-5.1) mmol/L Chloride 114 H (98-107) mmol/L Carbon Dioxide 15 L (22-30) mmol/L BUN 47 H (7-17) mg/dL Glucose (74-99) mg/dL POC Glucose (mg/dL) 137 H (75-99) mg/dL Calcium 7.7 L (8.4-10.2) mg/dL AST (14-36) U/L Total Protein 5.0 L (6.3-8.2) g/dL Albumin 2.7 L (3.5-5.0) g/dL 12/24/17 12/24/17 12/24/17 Range/Units 14:10 14:10 14:25 WBC 14.8 H (3.8-10.6) k/uL RBC 3.41 L (3.80-5.40) m/uL Hgb 11.0 L (11.4-16.0) gm/dL Hct 33.4 L (34.0-46.0) % Neutrophils # 12.1 H (1.3-7.7) k/uL Lymphocytes # (1.0-4.8) k/uL ABG pH 7.18 L* (7.35-7.45) ABG pCO2 (35-45) mmHg ABG pO2 115 H (83-108) mmHg ABG HCO3 14 L (21-25) mmol/L ABG Total CO2 15 L (19-24) mmol/L ABG O2 Saturation 97.6 H (94-97) % Potassium (3.5-5.1) mmol/L Chloride 114 H (98-107) mmol/L Carbon Dioxide 13 L (22-30) mmol/L BUN 45 H (7-17) mg/dL Glucose 139 H (74-99) mg/dL POC Glucose (mg/dL) (75-99) mg/dL Calcium 7.5 L (8.4-10.2) mg/dL AST (14-36) U/L Total Protein 4.8 L (6.3-8.2) g/dL Albumin 2.6 L (3.5-5.0) g/dL 12/24/17 12/24/17 12/24/17 Range/Units 16:12 18:18 22:50 WBC (3.8-10.6) k/uL RBC (3.80-5.40) m/uL Hgb (11.4-16.0) gm/dL Hct (34.0-46.0) % Neutrophils # (1.3-7.7) k/uL Lymphocytes # (1.0-4.8) k/uL ABG pH (7.35-7.45) ABG pCO2 27 L (35-45) mmHg ABG pO2 238 H (83-108) mmHg ABG HCO3 15 L (21-25) mmol/L ABG Total CO2 16 L (19-24) mmol/L ABG O2 Saturation 98.4 H (94-97) % Potassium 3.2 L (3.5-5.1) mmol/L Chloride (98-107) mmol/L Carbon Dioxide (22-30) mmol/L BUN (7-17) mg/dL Glucose (74-99) mg/dL POC Glucose (mg/dL) 180 H (75-99) mg/dL Calcium (8.4-10.2) mg/dL AST (14-36) U/L Total Protein (6.3-8.2) g/dL Albumin (3.5-5.0) g/dL 12/25/17 12/25/17 12/25/17 Range/Units 00:01 04:30 04:30 WBC (3.8-10.6) k/uL RBC 3.30 L (3.80-5.40) m/uL Hgb 10.2 L (11.4-16.0) gm/dL Hct 30.4 L (34.0-46.0) % Neutrophils # (1.3-7.7) k/uL Lymphocytes # 0.5 L (1.0-4.8) k/uL ABG pH (7.35-7.45) ABG pCO2 (35-45) mmHg ABG pO2 (83-108) mmHg ABG HCO3 (21-25) mmol/L ABG Total CO2 (19-24) mmol/L ABG O2 Saturation (94-97) % Potassium (3.5-5.1) mmol/L Chloride 111 H (98-107) mmol/L Carbon Dioxide (22-30) mmol/L BUN 43 H (7-17) mg/dL Glucose 176 H (74-99) mg/dL POC Glucose (mg/dL) 193 H (75-99) mg/dL Calcium 7.5 L (8.4-10.2) mg/dL AST 58 H (14-36) U/L Total Protein 4.5 L (6.3-8.2) g/dL Albumin 2.4 L (3.5-5.0) g/dL 12/25/17 Range/Units 06:23 WBC (3.8-10.6) k/uL RBC (3.80-5.40) m/uL Hgb (11.4-16.0) gm/dL Hct (34.0-46.0) % Neutrophils # (1.3-7.7) k/uL Lymphocytes # (1.0-4.8) k/uL ABG pH (7.35-7.45) ABG pCO2 (35-45) mmHg ABG pO2 (83-108) mmHg ABG HCO3 (21-25) mmol/L ABG Total CO2 (19-24) mmol/L ABG O2 Saturation (94-97) % Potassium (3.5-5.1) mmol/L Chloride (98-107) mmol/L Carbon Dioxide (22-30) mmol/L BUN (7-17) mg/dL Glucose (74-99) mg/dL POC Glucose (mg/dL) 184 H (75-99) mg/dL Calcium (8.4-10.2) mg/dL AST (14-36) U/L Total Protein (6.3-8.2) g/dL Albumin (3.5-5.0) g/dL Assessment and Plan Assessment: Assessment Postop day #1, status post exploratory laparotomy with lysis of adhesions. Small bowel obstruction secondary to above Hypoxemic respiratory failure, improved on BiPAP Anion gap metabolic acidosis, improved on bicarbonate drip. Hypotension, responsive to fluids and norepinephrine History of paroxysmal atrial fibrillation History of hypertension Hyperlipidemia by history Type 2 diabetes mellitus Severe aortic stenosis History of CAD Previous history of right-sided CVA with left-sided weakness History of dementia DJD Plan: Plan dated 12/25/2017 This morning, we will discontinue the sodium bicarbonate drip and increase her lactated Ringer's up to 1 25 mL an hour. PO2 of blood gases this morning are much improved and oxygenation is greatly improved. We'll attempt to put on some nasal cannula at 4-5 L/m. We'll see if we can't wean the norepinephrine off. White count is 8.8 hemoglobin 10.2 hematocrit 30.4 and platelet count 294, 000. In addition, sodium 139 potassium 3.9 chloride 111 CO2 23 anion gap 5 BUN 43 and creatinine 0.73. This suggests that she still may be dry. Microbiology is pending or negative. Her medications are reviewed. She's getting heparin for DVT prophylaxis and Dilaudid for pain. She is on updrafts with albuterol and Atrovent. She's also on Reglan, Zosyn, and Protonix. Certainly, her situation today is much better than yesterday but overall, she remains in a guarded situation. I will speak to the family again today. Critical care time 34 minutes Time with Patient: Greater than 30
[2017-12-25 07:39] LABS: Glucose,Whole Blood 170 mg/dL (75-99)
[2017-12-25] MEDS ORDERED: ENOXAPARIN 40 MG/0.4 ML SYRINGE SQ SCH (09:00)
[2017-12-25] MEDS: PANTOPRAZOLE 40 MG/10 ML VIAL IV SCH (09:19)
--- NOTE | 2017-12-25 09:39 | P.PN ---
Subjective Progress Note Date: 12/25/17 87-year-old female being seen in the intensive care unit this morning currently is on a nasal cannula with sats documented at 98% is awake is alert following simple commands patient is asking to "get up out of bed" patient being followed by the agricultural engineering technicians for ICU management labs this morning pending nasogastric tube to intermittent suction surgical dressing dry pressors are being weaned off systolic blood pressure in the 90s to 100 heart rate in the 100 Small bowel obstruction due to lysis of adhesions. Postop December 24 exploratory laparotomy with lysis of adhesions Objective - Vital Signs Vital signs: Vital Signs Temp 98.4 F 12/25/17 08:00 Pulse 103 H 12/25/17 09:00 Resp 26 H 12/25/17 09:00 BP 105/49 12/24/17 13:15 Pulse Ox 99 12/25/17 09:00 Intake & Output 12/24/17 12/25/17 12/25/17 18:59 06:59 18:59 Intake Total 1573.75 5214.875 284 Output Total 640 350 90 Balance 933.75 4864.875 194 Weight 90.5 kg Intake: IV 1500 5108 284 Dextrose 5% in Water 1, 300 825 75 000 ml @ 75 mls/hr IV . [id number] EPIFANIO with Sodium Bicarb (1 Meq/ml) 100 ml Rx#:[id number] Lactated Ringers 1,000 ml 600 150 @ 125 mls/hr IV .Q8H [facility] Rx#:[id number] Lactated Ringers 1,000 ml 3000 @ 999 mls/hr IV .Q1H1M [facility] Rx#:[id number] Magnesium Sulfate-D5w Pmx 200 1 gm In Dextrose/Water 1 100ml.bag @ 100 mls/hr IVPB Q1H [facility] Rx#: [id number] Piperacillin-Tazobactam 3 50 50 .375 gm In Dextrose/Water 1 50ml.bag @ 12.5 mls/hr IVPB Q8H [facility] Rx#: [id number] Potassium Chloride 10 meq 400 In Water For Injection 1 100ml.bag @ 100 mls/hr IVPB Q1HR [facility] Rx#: [id number] pressure bag 33 9 Intake, IV Titration 73.75 106.875 Amount Norepinephrine 4 mg In 73.75 106.875 Sodium Chloride 0.9% 250 ml @ Titrate IV .Q0M [facility] Rx#:[id number] Output: Urine 630 350 90 Estimated Blood Loss 10 Other: Voiding Method Diaper Indwelling Catheter # Voids 1 ABP, PAP, CO, CI - Last Documented Arterial Blood Pressure 103/45 - Exam Physical exam Pleasant hard of hearing female awake and alert oriented appearing in no acute distress resting in bed in the ICU Lungs anterior decreased the bases no wheezing rales or rhonchi nasal cannula at 4 L keeping a sat greater than 90% Heart S1-S2 audible mildly tachycardic heart rate 90-100 Abdomen soft surgical tenderness appropriate few hypoactive bowel tones indwelling Men[place] catheter in place nasogastric tube to suction surgical dressing dry no nausea no vomiting Extremities puffiness to the hands Venodyne's on to the bilateral lower extremities trace pedal edema - Labs CBC & Chem 7: 12/25/17 04:30 12/25/17 04:30 Labs: Abnormal Lab Results - Last 24 Hours (Table) 12/24/17 12/24/17 12/24/17 Range/Units 13:39 14:10 14:10 WBC 14.8 H (3.8-10.6) k/uL RBC 3.41 L (3.80-5.40) m/uL Hgb 11.0 L (11.4-16.0) gm/dL Hct 33.4 L (34.0-46.0) % Neutrophils # 12.1 H (1.3-7.7) k/uL Lymphocytes # (1.0-4.8) k/uL ABG pH (7.35-7.45) ABG pCO2 (35-45) mmHg ABG pO2 (83-108) mmHg ABG HCO3 (21-25) mmol/L ABG Total CO2 (19-24) mmol/L ABG O2 Saturation (94-97) % Potassium (3.5-5.1) mmol/L Chloride 114 H (98-107) mmol/L Carbon Dioxide 13 L (22-30) mmol/L BUN 45 H (7-17) mg/dL Glucose 139 H (74-99) mg/dL POC Glucose (mg/dL) 137 H (75-99) mg/dL Calcium 7.5 L (8.4-10.2) mg/dL AST (14-36) U/L Total Protein 4.8 L (6.3-8.2) g/dL Albumin 2.6 L (3.5-5.0) g/dL 12/24/17 12/24/17 12/24/17 Range/Units 14:25 16:12 18:18 WBC (3.8-10.6) k/uL RBC (3.80-5.40) m/uL Hgb (11.4-16.0) gm/dL Hct (34.0-46.0) % Neutrophils # (1.3-7.7) k/uL Lymphocytes # (1.0-4.8) k/uL ABG pH 7.18 L* (7.35-7.45) ABG pCO2 27 L (35-45) mmHg ABG pO2 115 H 238 H (83-108) mmHg ABG HCO3 14 L 15 L (21-25) mmol/L ABG Total CO2 15 L 16 L (19-24) mmol/L ABG O2 Saturation 97.6 H 98.4 H (94-97) % Potassium (3.5-5.1) mmol/L Chloride (98-107) mmol/L Carbon Dioxide (22-30) mmol/L BUN (7-17) mg/dL Glucose (74-99) mg/dL POC Glucose (mg/dL) 180 H (75-99) mg/dL Calcium (8.4-10.2) mg/dL AST (14-36) U/L Total Protein (6.3-8.2) g/dL Albumin (3.5-5.0) g/dL 12/24/17 12/25/17 12/25/17 Range/Units 22:50 00:01 04:30 WBC (3.8-10.6) k/uL RBC 3.30 L (3.80-5.40) m/uL Hgb 10.2 L (11.4-16.0) gm/dL Hct 30.4 L (34.0-46.0) % Neutrophils # (1.3-7.7) k/uL Lymphocytes # 0.5 L (1.0-4.8) k/uL ABG pH (7.35-7.45) ABG pCO2 (35-45) mmHg ABG pO2 (83-108) mmHg ABG HCO3 (21-25) mmol/L ABG Total CO2 (19-24) mmol/L ABG O2 Saturation (94-97) % Potassium 3.2 L (3.5-5.1) mmol/L Chloride (98-107) mmol/L Carbon Dioxide (22-30) mmol/L BUN (7-17) mg/dL Glucose (74-99) mg/dL POC Glucose (mg/dL) 193 H (75-99) mg/dL Calcium (8.4-10.2) mg/dL AST (14-36) U/L Total Protein (6.3-8.2) g/dL Albumin (3.5-5.0) g/dL 12/25/17 12/25/17 12/25/17 Range/Units 04:30 06:23 06:45 WBC (3.8-10.6) k/uL RBC (3.80-5.40) m/uL Hgb (11.4-16.0) gm/dL Hct (34.0-46.0) % Neutrophils # (1.3-7.7) k/uL Lymphocytes # (1.0-4.8) k/uL ABG pH 7.50 H (7.35-7.45) ABG pCO2 32 L (35-45) mmHg ABG pO2 161 H (83-108) mmHg ABG HCO3 (21-25) mmol/L ABG Total CO2 26 H (19-24) mmol/L ABG O2 Saturation 98.4 H (94-97) % Potassium (3.5-5.1) mmol/L Chloride 111 H (98-107) mmol/L Carbon Dioxide (22-30) mmol/L BUN 43 H (7-17) mg/dL Glucose 176 H (74-99) mg/dL POC Glucose (mg/dL) 184 H (75-99) mg/dL Calcium 7.5 L (8.4-10.2) mg/dL AST 58 H (14-36) U/L Total Protein 4.5 L (6.3-8.2) g/dL Albumin 2.4 L (3.5-5.0) g/dL 12/25/17 Range/Units 07:28 WBC (3.8-10.6) k/uL RBC (3.80-5.40) m/uL Hgb (11.4-16.0) gm/dL Hct (34.0-46.0) % Neutrophils # (1.3-7.7) k/uL Lymphocytes # (1.0-4.8) k/uL ABG pH (7.35-7.45) ABG pCO2 (35-45) mmHg ABG pO2 (83-108) mmHg ABG HCO3 (21-25) mmol/L ABG Total CO2 (19-24) mmol/L ABG O2 Saturation (94-97) % Potassium (3.5-5.1) mmol/L Chloride (98-107) mmol/L Carbon Dioxide (22-30) mmol/L BUN (7-17) mg/dL Glucose (74-99) mg/dL POC Glucose (mg/dL) 170 H (75-99) mg/dL Calcium (8.4-10.2) mg/dL AST (14-36) U/L Total Protein (6.3-8.2) g/dL Albumin (3.5-5.0) g/dL Assessment and Plan Assessment: Impression Present on admission abdominal pain suspect small bowel obstruction likely due to adhesions per evidence of a CAT scan of the abdomen pelvis Persistent nausea vomiting secondary to #1 Paroxysmal atrial fibrillation on long-term anticoagulation elquis Small bowel obstruction due to lysis of adhesions Postop December 24 exploratory laparotomy with lysis of adhesions Plan Continue postop surgical care PT OT when appropriate Continue ICU management per the agricultural engineering technicians Restart elquis when appropriate Continue nasogastric's tube to intermittent suction Pain control DVT and GI prophylaxis Will follow with you with further surgical recommendations pending clinical course Repeat labs in the morning Continue the nasal gastric tube to suction until bowel function resumes The above impression and plan of care have been discussed and directed by signing physician. Zully Barnard nurse practitioner acting as scribe for signing physician.
[2017-12-25 10:45] LABS: Magnesium 2.2 mg/dL (1.6-2.3); Potassium 3.7 mmol/L (3.5-5.1)
[2017-12-25] MEDS ORDERED: Potassium Replacement Protocol 1 EACH MISC MISCELLANE PRN (11:06)
[2017-12-25 11:55] LABS: Glucose,Whole Blood 135 mg/dL (75-99)
--- NOTE | 2017-12-25 12:37 | P.PN ---
Subjective Progress Note Date: 12/25/17 12/21/2017 87-year-old female who originally presented to the emergency room due to nausea and vomiting. Computed tomography scan revealed developing distal small bowel obstruction with transition point identified in the upper pelvis just right of the midline presumed product of adhesions. Chest x-ray was negative for an acute process. The patient did have an NG tube placed but according to nursing documentation and was pulled out by the patient on the morning of 12/20/2017. The patient's NG tube was not reinserted per physician order. The patient denied any further episodes of vomiting. She denies nausea at this time. She is tolerating a clear liquid diet. The patient does have good bowel sounds. She denies passing flatus. Denies bowel movement. Abdomen is soft, but does remain distended. Daughter is at the bedside who reports patient's abdomen is larger than her baseline. Patient's vital signs are stable. Temperature this morning at 9.1. Blood pressure 105/62. She is on room air with oxygen saturations greater than 92%. The patient's daughter would like the patient to be discharged to rehab when she is stable and is requesting [facility]. 12/22/2017 Patient seen and examined at the bedside. patient underwent computed tomography scan of the abdomen yesterday which revealed worsening mechanical small bowel obstruction. Patient had an NG tube placed this morning with immediate 1200 mL of drainage. Since insertion the patient has had approximately an additional 1000 mL of drainage. patient's abdomen is less distended today in comparison to yesterday. Patient states her pain has been tolerable. She denies shortness of breath or chest pain. patient's blood pressure is stable. 115/65. She is on room air with an oxygen saturation greater than 92%. The patient is slightly tachycardic with a heart rate in the low 100s. 12/23/2017-Note per Dr. Rivera 12/24/2017 Patient seen and examined at the bedside. Patient is NPO this morning. She is scheduled for exploratory laparotomy this morning. Eliquis remains on hold for OR. Vital signs remain stable. 12/25/2017 Patient seen and examined at the bedside with Dr. Rivera. The patient underwent an exposure laparotomy with lysis of adhesions yesterday. Postoperatively she was hypotensive and hypoxic. She was transferred to the intensive care unit. The patient was placed on BiPAP and given aggressive fluid resuscitation. She was also started on a bicarb drip. She was placed on vasopressors. This morning the patient has improved. She is awake and alert. She is oriented 3. Her Levophed is being weaned off and she is currently on 2mcg. blood pressures in the 90s. She is on nasal cannula with oxygen saturations greater than 92%. TAWANA drain is intact to LIS with very minimal output. Objective - Vital Signs Vital signs: Vital Signs Temp 98.4 F 12/25/17 08:00 Pulse 108 H 12/25/17 12:00 Resp 26 H 12/25/17 12:00 BP 105/49 12/24/17 13:15 Pulse Ox 98 12/25/17 12:00 Intake & Output 12/24/17 12/25/17 12/25/17 18:59 06:59 18:59 Intake Total 1573.75 5214.875 733.625 Output Total 640 350 90 Balance 933.75 4864.875 643.625 Weight 90.5 kg Intake: IV 1500 5108 668 Dextrose 5% in Water 1, 300 825 75 000 ml @ 75 mls/hr IV . [id number] EPIFANIO with Sodium Bicarb (1 Meq/ml) 100 ml Rx#:[id number] Lactated Ringers 1,000 ml 600 525 @ 125 mls/hr IV .Q8H [facility] Rx#:[id number] Lactated Ringers 1,000 ml 3000 @ 999 mls/hr IV .Q1H1M ONE Rx#:[id number] Magnesium Sulfate-D5w Pmx 200 1 gm In Dextrose/Water 1 100ml.bag @ 100 mls/hr IVPB Q1H [facility] Rx#: [id number] Piperacillin-Tazobactam 3 50 50 .375 gm In Dextrose/Water 1 50ml.bag @ 12.5 mls/hr IVPB Q8H [facility] Rx#: [id number] Potassium Chloride 10 meq 400 In Water For Injection 1 100ml.bag @ 100 mls/hr IVPB Q1HR [facility] Rx#: [id number] pressure bag 33 18 Intake, IV Titration 73.75 106.875 65.625 Amount Norepinephrine 4 mg In 73.75 106.875 65.625 Sodium Chloride 0.9% 250 ml @ Titrate IV .Q0M [facility] Rx#:[id number] Output: Urine 630 350 90 Estimated Blood Loss 10 Other: Voiding Method Diaper Indwelling Catheter Indwelling Catheter # Voids 1 ABP, PAP, CO, CI - Last Documented Arterial Blood Pressure 108/52 - Exam GENERAL: This is a 87-year-old female in no apparent distress at the time of examination. Pleasant and cooperative. HEENT: Head is atraumatic, normocephalic. Pupils are equal, round, and reactive to light. Sclerae anicteric. Conjunctivae are clear. Mucus membranes of the mouth are moist. Neck is supple. RESPIRATORY: Clear to ausculation-diminished. No wheezes, rales, or rhonchi. No use of accessory muscles. Patient maintaining oxygen saturation greater than 92%. No chest wall tenderness is noted on palpation or with deep breathing. CARDIOVASCULAR: Regular rate and rhythm, slightly tachycardic. Systolic murmur.S1 and S2 noted. No JVD noted. No S3 or S4 noted. GASTROINTESTINAL: Abdomen soft and round. A few hypoactive bowel sounds are auscultated x 4 quadrants. NG tube to low intermittent suction with minimal output. Midline surgical dressing with old drainage noted. INTEGUMENTARY: No cyanosis. No jaundice. No rashes noted. No cellulitis noted. EXTREMITIES: 2+ peripheral pulses. Trace bilateral lower extremity edema. 2+ left hand edema. No calf tenderness noted. NEUROLOGIC: Cranial nerves II-XII intact. PSYCHIATRIC: Awake, alert, and oriented X 2-3. Appropriate affect. - Labs CBC & Chem 7: 12/25/17 04:30 12/25/17 10:22 Labs: Abnormal Lab Results - Last 24 Hours (Table) 12/24/17 12/24/17 12/24/17 Range/Units 13:39 14:10 14:10 WBC 14.8 H (3.8-10.6) k/uL RBC 3.41 L (3.80-5.40) m/uL Hgb 11.0 L (11.4-16.0) gm/dL Hct 33.4 L (34.0-46.0) % Neutrophils # 12.1 H (1.3-7.7) k/uL Lymphocytes # (1.0-4.8) k/uL ABG pH (7.35-7.45) ABG pCO2 (35-45) mmHg ABG pO2 (83-108) mmHg ABG HCO3 (21-25) mmol/L ABG Total CO2 (19-24) mmol/L ABG O2 Saturation (94-97) % Potassium (3.5-5.1) mmol/L Chloride 114 H (98-107) mmol/L Carbon Dioxide 13 L (22-30) mmol/L BUN 45 H (7-17) mg/dL Glucose 139 H (74-99) mg/dL POC Glucose (mg/dL) 137 H (75-99) mg/dL Calcium 7.5 L (8.4-10.2) mg/dL AST (14-36) U/L Total Protein 4.8 L (6.3-8.2) g/dL Albumin 2.6 L (3.5-5.0) g/dL 12/24/17 12/24/17 12/24/17 Range/Units 14:25 16:12 18:18 WBC (3.8-10.6) k/uL RBC (3.80-5.40) m/uL Hgb (11.4-16.0) gm/dL Hct (34.0-46.0) % Neutrophils # (1.3-7.7) k/uL Lymphocytes # (1.0-4.8) k/uL ABG pH 7.18 L* (7.35-7.45) ABG pCO2 27 L (35-45) mmHg ABG pO2 115 H 238 H (83-108) mmHg ABG HCO3 14 L 15 L (21-25) mmol/L ABG Total CO2 15 L 16 L (19-24) mmol/L ABG O2 Saturation 97.6 H 98.4 H (94-97) % Potassium (3.5-5.1) mmol/L Chloride (98-107) mmol/L Carbon Dioxide (22-30) mmol/L BUN (7-17) mg/dL Glucose (74-99) mg/dL POC Glucose (mg/dL) 180 H (75-99) mg/dL Calcium (8.4-10.2) mg/dL AST (14-36) U/L Total Protein (6.3-8.2) g/dL Albumin (3.5-5.0) g/dL 12/24/17 12/25/17 12/25/17 Range/Units 22:50 00:01 04:30 WBC (3.8-10.6) k/uL RBC 3.30 L (3.80-5.40) m/uL Hgb 10.2 L (11.4-16.0) gm/dL Hct 30.4 L (34.0-46.0) % Neutrophils # (1.3-7.7) k/uL Lymphocytes # 0.5 L (1.0-4.8) k/uL ABG pH (7.35-7.45) ABG pCO2 (35-45) mmHg ABG pO2 (83-108) mmHg ABG HCO3 (21-25) mmol/L ABG Total CO2 (19-24) mmol/L ABG O2 Saturation (94-97) % Potassium 3.2 L (3.5-5.1) mmol/L Chloride (98-107) mmol/L Carbon Dioxide (22-30) mmol/L BUN (7-17) mg/dL Glucose (74-99) mg/dL POC Glucose (mg/dL) 193 H (75-99) mg/dL Calcium (8.4-10.2) mg/dL AST (14-36) U/L Total Protein (6.3-8.2) g/dL Albumin (3.5-5.0) g/dL 12/25/17 12/25/17 12/25/17 Range/Units 04:30 06:23 06:45 WBC (3.8-10.6) k/uL RBC (3.80-5.40) m/uL Hgb (11.4-16.0) gm/dL Hct (34.0-46.0) % Neutrophils # (1.3-7.7) k/uL Lymphocytes # (1.0-4.8) k/uL ABG pH 7.50 H (7.35-7.45) ABG pCO2 32 L (35-45) mmHg ABG pO2 161 H (83-108) mmHg ABG HCO3 (21-25) mmol/L ABG Total CO2 26 H (19-24) mmol/L ABG O2 Saturation 98.4 H (94-97) % Potassium (3.5-5.1) mmol/L Chloride 111 H (98-107) mmol/L Carbon Dioxide (22-30) mmol/L BUN 43 H (7-17) mg/dL Glucose 176 H (74-99) mg/dL POC Glucose (mg/dL) 184 H (75-99) mg/dL Calcium 7.5 L (8.4-10.2) mg/dL AST 58 H (14-36) U/L Total Protein 4.5 L (6.3-8.2) g/dL Albumin 2.4 L (3.5-5.0) g/dL 12/25/17 12/25/17 Range/Units 07:28 11:44 WBC (3.8-10.6) k/uL RBC (3.80-5.40) m/uL Hgb (11.4-16.0) gm/dL Hct (34.0-46.0) % Neutrophils # (1.3-7.7) k/uL Lymphocytes # (1.0-4.8) k/uL ABG pH (7.35-7.45) ABG pCO2 (35-45) mmHg ABG pO2 (83-108) mmHg ABG HCO3 (21-25) mmol/L ABG Total CO2 (19-24) mmol/L ABG O2 Saturation (94-97) % Potassium (3.5-5.1) mmol/L Chloride (98-107) mmol/L Carbon Dioxide (22-30) mmol/L BUN (7-17) mg/dL Glucose (74-99) mg/dL POC Glucose (mg/dL) 170 H 135 H (75-99) mg/dL Calcium (8.4-10.2) mg/dL AST (14-36) U/L Total Protein (6.3-8.2) g/dL Albumin (3.5-5.0) g/dL Assessment and Plan Plan: ASSESSMENT: Small bowel obstruction, present on admission, status post exposure laparotomy with lysis of adhesions Nausea and vomiting, secondary to above, resolved Diabetes mellitus, type II Hyperlipidemia Hypertension Paroxysmal atrial fibrillation, on long-term anticoagulation with Eliquis History of coronary artery disease History of CVA Dementia Osteoarthritis PLAN: General surgery, Dr. Rivera, on consult. Appreciate recommendations and input Continue NG tube to LIS Wean levophed as tolerated to maintain MAP greater than 65 Continue IV fluids Continue to hold Eliquis while patient is NPO. Resume Eliquis when bowel function returns. PT/OT on consult for placement evaluation Home meds as appropriate Monitor labs GI prophylaxis: Protonix 40 mg IV Daily DVT prophylaxis: Eliquis on hold. Heparin 5000 units subcu every 8 hours. Monitor vital signs and address as appropriate Discharge planning: Patients daughter is requesting subacute rehab at the time of discharge. Requesting [facility]. Further recommendations pending patient's course Nurse practitioner note has been reviewed by physician. Signing provider agrees with the documented findings, assessment, and plan of care.
[2017-12-25] MEDS: DEXTROSE 5% IN WATER 1,000 ML with SODIUM BICARB (1 MEQ/ML) 100 ML IV SCH (14:41)
[2017-12-25 17:42] LABS: Glucose,Whole Blood 109 mg/dL (75-99)
[2017-12-25] MEDS: LACTATED RINGERS 1,000 ML IV SCH ×2 (18:03→21:24)
[2017-12-25] MEDS: NOREPINEPHRINE 4 MG in SODIUM CHLORIDE 0.9% 250 ML IV SCH ×2 (18:34→18:45)
[2017-12-25 21:17] LABS: Glucose,Whole Blood 193 mg/dL (75-99)
[2017-12-26] MEDS: HEPARIN SODIUM,PORCINE 5,000 UNIT/ML 1 ML VIAL SQ SCH ×4 (00:57→23:08)
[2017-12-26] MEDS: IPRATROPIUM-ALBUTEROL 3 ML NEB INHALATION SCH ×6 (03:09→23:09)
[2017-12-26 04:30] LABS: Basophils % (A) 0 %; Eosinophils % (A) 0 %; HGB 9.2 gm/dL (11.4-16.0); Lymphocytes # (A) 0.8 k/uL (1.0-4.8); Lymphocytes % (A) 13 %; MCH 30.2 pg (25.0-35.0); MCHC 32.8 g/dL (31.0-37.0); MCV 92.1 fL (80.0-100.0); Mean Platelet Volume 7.5; Monocytes # (A) 0.5 k/uL (0-1.0); Monocytes % (A) 8 %; Neutrophils # (A) 4.9 k/uL (1.3-7.7); Neutrophils % (A) 78 %; Platelet Count 264 k/uL (150-450); RBC 3.04 m/uL (3.80-5.40); RDW 14.3 % (11.5-15.5); WBC 6.3 k/uL (3.8-10.6)
[2017-12-26 05:06] LABS: Albumin 2.2 g/dL (3.5-5.0); Calcium 7.6 mg/dL (8.4-10.2); Total Bilirubin 0.7 mg/dL (0.2-1.3); Total Protein 4.3 g/dL (6.3-8.2)
[2017-12-26] MEDS: PIPERACILLIN-TAZOBACTAM 3.375 GM in DEXTROSE/WATER 1 50ML.BAG IVPB SCH ×3 (06:30→21:15)
[2017-12-26 07:14] LABS: Glucose,Whole Blood 125 mg/dL (75-99)
[2017-12-26] MEDS ORDERED: POTASSIUM CHLORIDE ER 20 MEQ TAB.ER PO SCH (08:00)
[2017-12-26] MEDS: LACTATED RINGERS 1,000 ML IV SCH ×2 (08:39→17:59)
[2017-12-26] MEDS: INSULIN ASPART 100 UNIT/ML 1 ML 10 ML VIAL SQ SCH ×4 (08:40→21:16)
[2017-12-26] MEDS: PANTOPRAZOLE 40 MG/10 ML VIAL IV SCH (08:43)
[2017-12-26] MEDS: MAGNESIUM SULFATE-D5W PMX 1 GM in DEXTROSE/WATER 1 100ML.BAG IVPB SCH ×2 (08:44→12:32)
--- NOTE | 2017-12-26 09:56 | P.PN ---
Subjective Progress Note Date: 12/26/17 Principal diagnosis: Respiratory failure Progress note dated 12/25/2017 87-year-old female, postop day #1, status post exploratory laparotomy with lysis of adhesions. The patient has hypoxemic respiratory failure requiring BiPAP therapy, anion gap metabolic acidosis profound hypotension, paroxysmal atrial fibrillation history is of essential hypertension hyperlipidemia diabetes , severe aortic stenosis, CAD, previous right-sided CVA with left-sided weakness , dementia and DJD. She arrived from the recovery area very unstable yesterday to the ICU. Her saturations were in the low 80s on 15 L high flow. In addition , the patient was on high dose of Foster-Synephrine and the blood pressure was only about 80 systolic. We quickly delivered some additional fluids. We also gave her 2 A of sodium bicarbonate and started a bicarbonate drip. In addition , we placed her on BiPAP with IPAP of 12 and EPAP of 6. The Foster-Synephrine was converted to norepinephrine. Currently, she is much more stable although her overall prognosis is guarded. She is a no code patient. I did have an opportunity to speak to the surgeon yesterday. In addition, I did speak to both daughters yesterday. They understand the gravity of the situation. This morning, we'll repeat a blood gas. We may be up. The sodium bicarbonate drip. We'll see for can wean off the norepinephrine by giving her some additional fluids. We'll review the labs x-rays and medications. Progress note dated 12/26/2017 87-year-old female, postop day #2, status post exploratory laparotomy with lysis of adhesions. The patient had hypoxemic respiratory failure and required BiPAP therapy initially. In addition, she came in with an anion gap metabolic acidosis, profound hypotension, paroxysmal atrial fibrillation hypertension hyperlipidemia diabetes severe aortic stenosis CAD right-sided CVA with left- sided weakness dementia and DJD. The patient has removed a very remarkable recovery. She certainly is not out of the garrison given her age and multitude of medical problems. Currently, she is on O2 2 L by nasal cannula and IV of lactated Ringer's at 125 mL an hour. That can likely be turned down. The norepinephrine has been weaned off. Chest x-ray was not done today. I did tell the nurse to discontinue the arterial line. We do want her to be a chair at the bedside and we certainly want her using the incentive spirometer every hour while awake. Objective - Vital Signs Vital signs: Vital Signs Temp 97.9 F 12/26/17 08:00 Pulse 103 H 12/26/17 09:30 Resp 17 12/26/17 09:30 BP 105/49 12/24/17 13:15 Pulse Ox 97 12/26/17 09:30 Intake & Output 12/25/17 12/26/17 12/26/17 18:59 06:59 18:59 Intake Total 7513.280 4302.063 481 Output Total 322 330 70 Balance 7224.761 5820.063 411 Weight 93.2 kg Intake: IV 1736 1764 231 Dextrose 5% in Water 1, 75 000 ml @ 75 mls/hr IV . [id number] EPIFANIO with Sodium Bicarb (1 Meq/ml) 100 ml Rx#:[id number] Lactated Ringers 1,000 ml 1275 1625 125 @ 125 mls/hr IV .Q8H [facility] Rx#:[id number] Magnesium Sulfate-D5w Pmx 100 1 gm In Dextrose/Water 1 100ml.bag @ 100 mls/hr IVPB Q1H [facility] Rx#: [id number] Piperacillin-Tazobactam 3 150 100 .375 gm In Dextrose/Water 1 50ml.bag @ 12.5 mls/hr IVPB Q8H [facility] Rx#: [id number] Potassium Chloride 10 meq 200 In Water For Injection 1 100ml.bag @ 100 mls/hr IVPB Q1HR [facility] Rx#: [id number] pressure bag 36 39 6 Intake, IV Titration 72.125 182.063 Amount Norepinephrine 4 mg In 72.125 182.063 Sodium Chloride 0.9% 250 ml @ Titrate IV .Q0M [facility] Rx#:[id number] Oral 500 250 Output: Gastric Drainage 60 Urine 262 330 70 Other: Voiding Method Indwelling Catheter Indwelling Catheter Indwelling Catheter ABP, PAP, CO, CI - Last Documented Arterial Blood Pressure 90/40 - Exam No acute distress, with 2 L nasal cannula, awake and alert, and no respiratory distress. HEENT examination is grossly unremarkable. Mucous membranes are moist. Neck supple. Full range of motion. No adenopathy thyromegaly or neck vein distention. Cardiovascular examination reveals regular rhythm rate. S1-S2 normal. No S3 or S4. They are systolic murmurs noted consistent with her known history of aortic stenosis. Lungs reveal bilateral rhonchi and a few crackles. Breath sounds equal bilaterally. No wheezes appreciated. Abdomen soft with occasional bowel sounds. Extremities are intact. No cyanosis clubbing or edema. Skin is without rash or lesion. Neurologic examination is brief but nonfocal. - Labs CBC & Chem 7: 12/26/17 04:20 12/26/17 04:20 Labs: Abnormal Lab Results - Last 24 Hours (Table) 12/25/17 12/25/17 12/25/17 Range/Units 11:44 17:31 21:04 RBC (3.80-5.40) m/uL Hgb (11.4-16.0) gm/dL Hct (34.0-46.0) % Lymphocytes # (1.0-4.8) k/uL Chloride (98-107) mmol/L BUN (7-17) mg/dL Glucose (74-99) mg/dL POC Glucose (mg/dL) 135 H 109 H 193 H (75-99) mg/dL Calcium (8.4-10.2) mg/dL AST (14-36) U/L Total Protein (6.3-8.2) g/dL Albumin (3.5-5.0) g/dL 12/26/17 12/26/17 12/26/17 Range/Units 04:20 04:20 07:01 RBC 3.04 L (3.80-5.40) m/uL Hgb 9.2 L (11.4-16.0) gm/dL Hct 28.0 L (34.0-46.0) % Lymphocytes # 0.8 L (1.0-4.8) k/uL Chloride 111 H (98-107) mmol/L BUN 36 H (7-17) mg/dL Glucose 107 H (74-99) mg/dL POC Glucose (mg/dL) 125 H (75-99) mg/dL Calcium 7.6 L (8.4-10.2) mg/dL AST 38 H (14-36) U/L Total Protein 4.3 L (6.3-8.2) g/dL Albumin 2.2 L (3.5-5.0) g/dL Assessment and Plan Assessment: Assessment Postop day #2, status post exploratory laparotomy with lysis of adhesions. Small bowel obstruction secondary to above Hypoxemic respiratory failure, improved on BiPAP Anion gap metabolic acidosis, improved on bicarbonate drip. Hypotension, responsive to fluids and norepinephrine History of paroxysmal atrial fibrillation History of hypertension Hyperlipidemia by history Type 2 diabetes mellitus Severe aortic stenosis History of CAD Previous history of right-sided CVA with left-sided weakness History of dementia DJD Plan: Plan dated 12/25/2017 This morning, we will discontinue the sodium bicarbonate drip and increase her lactated Ringer's up to 1 25 mL an hour. PO2 of blood gases this morning are much improved and oxygenation is greatly improved. We'll attempt to put on some nasal cannula at 4-5 L/m. We'll see if we can't wean the norepinephrine off. White count is 8.8 hemoglobin 10.2 hematocrit 30.4 and platelet count 294, 000. In addition, sodium 139 potassium 3.9 chloride 111 CO2 23 anion gap 5 BUN 43 and creatinine 0.73. This suggests that she still may be dry. Microbiology is pending or negative. Her medications are reviewed. She's getting heparin for DVT prophylaxis and Dilaudid for pain. She is on updrafts with albuterol and Atrovent. She's also on Reglan, Zosyn, and Protonix. Certainly, her situation today is much better than yesterday but overall, she remains in a guarded situation. I will speak to the family again today. Critical care time 34 minutes Plan dated 12/26/2017 The arterial line can be discontinued. Likely I will turn down the IV fluids. The patient's only on O2 by nasal cannula at 2 L. There was no chest x-ray done today. Microbiology thus far negative. White count is 6.3, hemoglobin 9.2 , hematocrit 28 and platelet count 264,000. Sodium and potassium are normal. Chloride 111 CO2 24 BUN 36 creatinine 0.71. Anion gap is normal at 6. Medications are reviewed. Additional recommendations and suggestions are forthcoming. Prognosis is guarded. We will continue to follow closely. Critical care time 32 minutes Time with Patient: Greater than 30
[2017-12-26 12:19] LABS: Glucose,Whole Blood 170 mg/dL (75-99)
[2017-12-26] MEDS ORDERED: LACTATED RINGERS 1,000 ML IV SCH (12:30)
[2017-12-26] MEDS ORDERED: LACTATED RINGERS 1,000 ML IV ONE (12:35)
--- NOTE | 2017-12-26 12:42 | P.PN ---
Subjective Progress Note Date: 12/26/17 Principal diagnosis: Bowel obstruction Patient doing well today. She is up in a chair. Tolerating full liquids. No bowel function however. White blood cell count 6.3. Objective - Vital Signs Vital signs: Vital Signs Temp 98 F 12/26/17 12:00 Pulse 108 H 12/26/17 12:30 Resp 29 H 12/26/17 12:30 BP 91/56 12/26/17 12:30 Pulse Ox 97 12/26/17 12:30 Intake & Output 12/25/17 12/26/17 12/26/17 18:59 06:59 18:59 Intake Total 4014.199 8156.063 706 Output Total 322 330 130 Balance 5062.199 2133.063 576 Weight 93.2 kg Intake: IV 1736 1764 456 Dextrose 5% in Water 1, 75 000 ml @ 75 mls/hr IV . [id number] EPIFANIO with Sodium Bicarb (1 Meq/ml) 100 ml Rx#:[id number] Lactated Ringers 1,000 ml 1275 1625 350 @ 75 mls/hr IV .[id number] [facility] Rx#:[id number] Magnesium Sulfate-D5w Pmx 100 1 gm In Dextrose/Water 1 100ml.bag @ 100 mls/hr IVPB Q1H [facility] Rx#: [id number] Piperacillin-Tazobactam 3 150 100 .375 gm In Dextrose/Water 1 50ml.bag @ 12.5 mls/hr IVPB Q8H [facility] Rx#: [id number] Potassium Chloride 10 meq 200 In Water For Injection 1 100ml.bag @ 100 mls/hr IVPB Q1HR [facility] Rx#: [id number] pressure bag 36 39 6 Intake, IV Titration 72.125 182.063 Amount Norepinephrine 4 mg In 72.125 182.063 Sodium Chloride 0.9% 250 ml @ Titrate IV .Q0M [facility] Rx#:[id number] Oral 500 250 Output: Gastric Drainage 60 Urine 262 330 130 Other: Voiding Method Indwelling Catheter Indwelling Catheter Indwelling Catheter ABP, PAP, CO, CI - Last Documented Arterial Blood Pressure 90/40 - Exam Abdomen: Soft, mild distention, mild incisional tenderness, dressing intact - Labs CBC & Chem 7: 12/26/17 04:20 12/26/17 04:20 Labs: Abnormal Lab Results - Last 24 Hours (Table) 12/25/17 12/25/17 12/26/17 Range/Units 17:31 21:04 04:20 RBC 3.04 L (3.80-5.40) m/uL Hgb 9.2 L (11.4-16.0) gm/dL Hct 28.0 L (34.0-46.0) % Lymphocytes # 0.8 L (1.0-4.8) k/uL Chloride (98-107) mmol/L BUN (7-17) mg/dL Glucose (74-99) mg/dL POC Glucose (mg/dL) 109 H 193 H (75-99) mg/dL Calcium (8.4-10.2) mg/dL AST (14-36) U/L Total Protein (6.3-8.2) g/dL Albumin (3.5-5.0) g/dL 12/26/17 12/26/17 12/26/17 Range/Units 04:20 07:01 12:08 RBC (3.80-5.40) m/uL Hgb (11.4-16.0) gm/dL Hct (34.0-46.0) % Lymphocytes # (1.0-4.8) k/uL Chloride 111 H (98-107) mmol/L BUN 36 H (7-17) mg/dL Glucose 107 H (74-99) mg/dL POC Glucose (mg/dL) 125 H 170 H (75-99) mg/dL Calcium 7.6 L (8.4-10.2) mg/dL AST 38 H (14-36) U/L Total Protein 4.3 L (6.3-8.2) g/dL Albumin 2.2 L (3.5-5.0) g/dL Assessment and Plan (1) SBO (small bowel obstruction) Narrative/Plan: Continue full liquids. Increase activity. Current Visit: Yes Status: Acute Code(s): K56.609 - UNSP INTESTNL OBST, UNSP TO PARTIAL VERSUS COMPLETE OBST SNOMED Code(s): 124265482
[2017-12-26 17:44] LABS: Glucose,Whole Blood 223 mg/dL (75-99)
[2017-12-26 21:05] LABS: Glucose,Whole Blood 136 mg/dL (75-99)
[2017-12-27] MEDS: IPRATROPIUM-ALBUTEROL 3 ML NEB INHALATION SCH ×6 (03:42→23:35)
[2017-12-27] MEDS: LACTATED RINGERS 1,000 ML IV SCH ×2 (05:06→18:27)
[2017-12-27] MEDS: PIPERACILLIN-TAZOBACTAM 3.375 GM in DEXTROSE/WATER 1 50ML.BAG IVPB SCH ×2 (05:07→16:20)
[2017-12-27 06:08] LABS: HCT 34.2 % (34.0-46.0); HGB 10.6 gm/dL (11.4-16.0); Hypochromasia Slight; MCH 30.2 pg (25.0-35.0); Mean Platelet Volume 6.8; Platelet Count 233 k/uL (150-450); RBC 3.51 m/uL (3.80-5.40); RDW 14.3 % (11.5-15.5); WBC 9.6 k/uL (3.8-10.6)
[2017-12-27 06:11] LABS: MCV 97.5 fL (80.0-100.0)
[2017-12-27 06:12] LABS: ALT 27 U/L (9-52); AST 38 U/L (14-36); Albumin 2.4 g/dL (3.5-5.0); Alkaline Phosphatase 56 U/L (38-126); Anion Gap 6 mmol/L; Blood Urea Nitrogen 27 mg/dL (7-17); Calcium 8.2 mg/dL (8.4-10.2); Carbon Dioxide 20 mmol/L (22-30); Chloride 111 mmol/L (98-107); Glucose 100 mg/dL (74-99); Phosphorus 2.6 mg/dL (2.5-4.5); Sodium 137 mmol/L (137-145); Total Bilirubin 0.8 mg/dL (0.2-1.3); Total Protein 4.7 g/dL (6.3-8.2)
[2017-12-27 06:23] LABS: Potassium 5.1 mmol/L (3.5-5.1)
[2017-12-27] MEDS: INSULIN ASPART 100 UNIT/ML 1 ML 10 ML VIAL SQ SCH ×4 (06:32→21:28)
[2017-12-27 06:33] LABS: Glucose,Whole Blood 109 mg/dL (75-99)
--- NOTE | 2017-12-27 06:38 | XR ---
EXAMINATION TYPE: XR chest 1V DATE OF EXAM: 12/27/2017 HISTORY: previous fluid overload/atelect, checking progress. REFERENCE: Previous study dated 12/24/2017. FINDINGS: The patient is NG tube is been removed. Heart size upper limits of normal. There is vascular congestion and pulmonary edema. This has worsene d. There are small, bilateral effusions. IMPRESSION: WORSENING CHANGES OF PULMONARY EDEMA.
[2017-12-27 07:35] LABS: Glucose,Whole Blood 127 mg/dL (75-99)
[2017-12-27] MEDS ORDERED: FUROSEMIDE 10 MG/ML 4 ML VIAL IV STA (08:51)
[2017-12-27] MEDS: HEPARIN SODIUM,PORCINE 5,000 UNIT/ML 1 ML VIAL SQ SCH ×2 (09:01→16:20)
[2017-12-27] MEDS: PANTOPRAZOLE 40 MG/10 ML VIAL IV SCH (09:01)
--- NOTE | 2017-12-27 09:16 | P.PN ---
Subjective Progress Note Date: 12/27/17 Principal diagnosis: Respiratory failure Progress note dated 12/25/2017 87-year-old female, postop day #1, status post exploratory laparotomy with lysis of adhesions. The patient has hypoxemic respiratory failure requiring BiPAP therapy, anion gap metabolic acidosis profound hypotension, paroxysmal atrial fibrillation history is of essential hypertension hyperlipidemia diabetes , severe aortic stenosis, CAD, previous right-sided CVA with left-sided weakness , dementia and DJD. She arrived from the recovery area very unstable yesterday to the ICU. Her saturations were in the low 80s on 15 L high flow. In addition , the patient was on high dose of Foster-Synephrine and the blood pressure was only about 80 systolic. We quickly delivered some additional fluids. We also gave her 2 A of sodium bicarbonate and started a bicarbonate drip. In addition , we placed her on BiPAP with IPAP of 12 and EPAP of 6. The Foster-Synephrine was converted to norepinephrine. Currently, she is much more stable although her overall prognosis is guarded. She is a no code patient. I did have an opportunity to speak to the surgeon yesterday. In addition, I did speak to both daughters yesterday. They understand the gravity of the situation. This morning, we'll repeat a blood gas. We may be up. The sodium bicarbonate drip. We'll see for can wean off the norepinephrine by giving her some additional fluids. We'll review the labs x-rays and medications. Progress note dated 12/26/2017 87-year-old female, postop day #2, status post exploratory laparotomy with lysis of adhesions. The patient had hypoxemic respiratory failure and required BiPAP therapy initially. In addition, she came in with an anion gap metabolic acidosis, profound hypotension, paroxysmal atrial fibrillation hypertension hyperlipidemia diabetes severe aortic stenosis CAD right-sided CVA with left- sided weakness dementia and DJD. The patient has removed a very remarkable recovery. She certainly is not out of the garrison given her age and multitude of medical problems. Currently, she is on O2 2 L by nasal cannula and IV of lactated Ringer's at 125 mL an hour. That can likely be turned down. The norepinephrine has been weaned off. Chest x-ray was not done today. I did tell the nurse to discontinue the arterial line. We do want her to be a chair at the bedside and we certainly want her using the incentive spirometer every hour while awake. Progress note dated 12/27/2017 87-year-old female, postop day #3, status post exploratory laparotomy with lysis of adhesions. The patient developed hypoxemic respiratory failure and required BiPAP initially. In addition, she had a severe anion gap metabolic acidosis which required IV bicarbonate and a bicarbonate drip. In addition, her profound hypotension was treated with fluid resuscitation and norepinephrine. She also has a history of paroxysmal atrial fibrillation benign essential hypertension hyperlipidemia diabetes severe aortic stenosis CAD , right-sided CVA with left-sided weakness, dementia and DJD. The patient has made very nice progress. Currently, she is on O2 at 3 L by nasal cannula. She is not requiring the BiPAP for a day and a half. It can be discontinued. She remains on lactated Ringer's at 75 mL an hour. Chest x-ray shows fluid overload. We will give her 40 of Lasix IV push and turn the IV down to KVO. In addition, the pulse in the right foot is weak compared to the left side. Doppler study of the right lower extremity along with vascular consult will be initiated. The patient is a DO NOT RESUSCITATE patient. I have been speaking to the daughters on a daily basis. Objective - Vital Signs Vital signs: Vital Signs Temp 98.4 F 12/27/17 04:00 Pulse 112 H 12/27/17 08:00 Resp 25 H 12/27/17 08:00 BP 112/67 12/27/17 08:00 Pulse Ox 94 L 12/27/17 08:00 Intake & Output 12/26/17 12/27/17 12/27/17 18:59 06:59 18:59 Intake Total 2306 1000 237.5 Output Total 275 343 30 Balance 2031 657 207.5 Weight 91.6 kg Intake: IV 6 1000 87.5 Lactated Ringers 1,000 ml 800 900 75 @ 75 mls/hr IV .[id number] [facility] Rx#:[id number] Lactated Ringers 1,000 ml 1000 @ 999 mls/hr IV .Q1H1M [facility] Rx#:[id number] Magnesium Sulfate-D5w Pmx 200 1 gm In Dextrose/Water 1 100ml.bag @ 100 mls/hr IVPB Q1H [facility] Rx#: [id number] Piperacillin-Tazobactam 3 50 100 12.5 .375 gm In Dextrose/Water 1 50ml.bag @ 12.5 mls/hr IVPB Q8H [facility] Rx#: [id number] pressure bag 6 Oral 250 150 Output: Urine 275 343 30 Other: Voiding Method Indwelling Catheter Indwelling Catheter ABP, PAP, CO, CI - Last Documented Arterial Blood Pressure 90/40 - Exam No acute distress, with 3 L nasal cannula, awake and alert, and no respiratory distress. HEENT examination is grossly unremarkable. Mucous membranes are moist. No oral lesions noted. Neck supple. Full range of motion. No adenopathy thyromegaly or neck vein distention. Cardiovascular examination reveals regular rhythm rate. S1-S2 normal. No S3 or S4. They are systolic murmurs noted consistent with her known history of aortic stenosis. Lungs reveal bilateral rhonchi and crackles, worse than yesterday. Breath sounds equal bilaterally. No wheezes appreciated. Abdomen soft with occasional bowel sounds. Extremities are intact. No cyanosis clubbing or edema. Skin is without rash or lesion. Neurologic examination is brief but nonfocal. - Labs CBC & Chem 7: 12/27/17 04:16 12/27/17 04:16 Labs: Abnormal Lab Results - Last 24 Hours (Table) 12/26/17 12/26/17 12/26/17 Range/Units 12:08 17:33 21:03 RBC (3.80-5.40) m/uL Hgb (11.4-16.0) gm/dL Chloride (98-107) mmol/L Carbon Dioxide (22-30) mmol/L BUN (7-17) mg/dL Glucose (74-99) mg/dL POC Glucose (mg/dL) 170 H 223 H 136 H (75-99) mg/dL Calcium (8.4-10.2) mg/dL AST (14-36) U/L Total Protein (6.3-8.2) g/dL Albumin (3.5-5.0) g/dL 12/27/17 12/27/17 12/27/17 Range/Units 04:16 04:16 06:31 RBC 3.51 L (3.80-5.40) m/uL Hgb 10.6 L (11.4-16.0) gm/dL Chloride 111 H (98-107) mmol/L Carbon Dioxide 20 L (22-30) mmol/L BUN 27 H (7-17) mg/dL Glucose 100 H (74-99) mg/dL POC Glucose (mg/dL) 109 H (75-99) mg/dL Calcium 8.2 L (8.4-10.2) mg/dL AST 38 H (14-36) U/L Total Protein 4.7 L (6.3-8.2) g/dL Albumin 2.4 L (3.5-5.0) g/dL 12/27/17 Range/Units 07:32 RBC (3.80-5.40) m/uL Hgb (11.4-16.0) gm/dL Chloride (98-107) mmol/L Carbon Dioxide (22-30) mmol/L BUN (7-17) mg/dL Glucose (74-99) mg/dL POC Glucose (mg/dL) 127 H (75-99) mg/dL Calcium (8.4-10.2) mg/dL AST (14-36) U/L Total Protein (6.3-8.2) g/dL Albumin (3.5-5.0) g/dL Assessment and Plan Assessment: Assessment Postop day #3, status post exploratory laparotomy with lysis of adhesions. Small bowel obstruction secondary to above Hypoxemic respiratory failure, improved on BiPAP Anion gap metabolic acidosis, improved on bicarbonate drip. Hypotension, responsive to fluids and norepinephrine History of paroxysmal atrial fibrillation History of hypertension Hyperlipidemia by history Type 2 diabetes mellitus Severe aortic stenosis History of CAD Previous history of right-sided CVA with left-sided weakness History of dementia DJD Plan: Plan dated 12/25/2017 This morning, we will discontinue the sodium bicarbonate drip and increase her lactated Ringer's up to 1 25 mL an hour. PO2 of blood gases this morning are much improved and oxygenation is greatly improved. We'll attempt to put on some nasal cannula at 4-5 L/m. We'll see if we can't wean the norepinephrine off. White count is 8.8 hemoglobin 10.2 hematocrit 30.4 and platelet count 294, 000. In addition, sodium 139 potassium 3.9 chloride 111 CO2 23 anion gap 5 BUN 43 and creatinine 0.73. This suggests that she still may be dry. Microbiology is pending or negative. Her medications are reviewed. She's getting heparin for DVT prophylaxis and Dilaudid for pain. She is on updrafts with albuterol and Atrovent. She's also on Reglan, Zosyn, and Protonix. Certainly, her situation today is much better than yesterday but overall, she remains in a guarded situation. I will speak to the family again today. Critical care time 34 minutes Plan dated 12/26/2017 The arterial line can be discontinued. Likely I will turn down the IV fluids. The patient's only on O2 by nasal cannula at 2 L. There was no chest x-ray done today. Microbiology thus far negative. White count is 6.3, hemoglobin 9.2 , hematocrit 28 and platelet count 264,000. Sodium and potassium are normal. Chloride 111 CO2 24 BUN 36 creatinine 0.71. Anion gap is normal at 6. Medications are reviewed. Additional recommendations and suggestions are forthcoming. Prognosis is guarded. We will continue to follow closely. Critical care time 32 minutes Plan dated 12/27/2017 The patient's IV which was previously at 75 mL an hour will be turned down to KVO. In addition, because a chest x-ray shows bilateral infiltrates, consistent with fluid overload, the patient received Lasix 40 mg IV push. Because of the decreased pulse in the right foot, the patient will have a Doppler of that lower extremity as well as a vascular consult. White count is 9.6, hemoglobin 10.6, hematocrit 34.2 and platelet count is normal. In addition , sodium and potassium are normal. Chloride 111 and CO2 20 with an anion gap of 6D 127 and creatinine 0.68. The rest of the labs look pretty good. Medications are reviewed. X-rays reviewed. The patient is a DO NOT RESUSCITATE. We'll attempt to speak to the family again today to give them an update. Critical care time 33 minutes Time with Patient: Greater than 30
--- NOTE | 2017-12-27 09:59 | US ---
EXAMINATION TYPE: US venous doppler duplex LE DATE OF EXAM: 12/27/2017 9:46 AM COMPARISON: NONE CLINICAL HISTORY: r/o DVT. Bilateral edema SIDE PERFORMED: Bilateral TECHNIQUE: The lower extremity deep venous system is examined utilizing real time linear array sonog radha with graded compression, doppler sonography and color-flow sonography. VESSELS IMAGED: External Iliac Vein (EIV) Common Femoral Vein Deep Femoral Vein Greater Saphenous Vein * Femoral Vein Popliteal Vein Proximal Calf Veins (* superficial vessels) Technically difficult study due to being done portable in ICU and extensive edema, additional color i mages to show flow as compression images are hard to see. Right Leg: Negative for DVT Left Leg: Negative for DVT No popliteal fossa lesion is seen. IMPRESSION: THIS EXAMINATION IS NEGATIVE FOR DVT IN BOTH LEGS.
--- NOTE | 2017-12-27 10:18 | CONS ---
DATE OF CONSULTATION: 12/27/2017 This is an 87-year-old, pleasant female. She had exploratory lap for a small bowel obstruction with lysis of adhesion. I was consulted for vascular evaluation. PAST MEDICAL HISTORY: The patient medical history is atrial fibrillation, coronary artery disease, history of CVA, dementia, diabetes mellitus, hypertension, [place]. PHYSICAL EXAMINATION: Patient was seen in her room. NECK: Supple. CHEST: Clear. ABDOMEN: The patient had a recent surgery. Femorals are 1+. Posterior tibial is a triphasic by the Doppler. Both feet are warm. There is no evidence of peripheral vascular occlusive disease acute. The patient has to be ruled out for DVT. Patient going to have a ultrasound of the lower extremity. At this point, she does not need any surgical intervention. MMODL / IJN: [id number] / MTDD
[2017-12-27 12:05] LABS: Glucose,Whole Blood 137 mg/dL (75-99)
--- NOTE | 2017-12-27 12:33 | P.PN ---
Subjective Progress Note Date: 12/27/17 Principal diagnosis: Bowel obstruction patient sleeping comfortably. Remains mildly tachycardic. White blood cell count is normal. She is afebrile. Mild bloating. No flatus. She is hungry however. Objective - Vital Signs Vital signs: Vital Signs Temp 98.4 F 12/27/17 12:00 Pulse 105 H 12/27/17 12:00 Resp 25 H 12/27/17 12:00 BP 109/66 12/27/17 12:00 Pulse Ox 95 12/27/17 12:00 Intake & Output 12/26/17 12/27/17 12/27/17 18:59 06:59 18:59 Intake Total 2306 1000 305 Output Total 275 343 995 Balance 2031 657 -690 Weight 91.6 kg Intake: IV 6 1000 155 Lactated Ringers 1,000 ml 800 900 155 @ 20 mls/hr IV .Q24H [facility] Rx#:[id number] Lactated Ringers 1,000 ml 1000 @ 999 mls/hr IV .Q1H1M [facility] Rx#:[id number] Magnesium Sulfate-D5w Pmx 200 1 gm In Dextrose/Water 1 100ml.bag @ 100 mls/hr IVPB Q1H [facility] Rx#: [id number] Piperacillin-Tazobactam 3 50 100 .375 gm In Dextrose/Water 1 50ml.bag @ 12.5 mls/hr IVPB Q8H [facility] Rx#: [id number] pressure bag 6 Oral 250 150 Output: Urine 275 343 995 Other: Voiding Method Indwelling Catheter Indwelling Catheter ABP, PAP, CO, CI - Last Documented Arterial Blood Pressure 90/40 - Exam Abdomen: Soft, mild distention, mild incisional tenderness, incision clean and dry - Labs CBC & Chem 7: 12/27/17 04:16 12/27/17 04:16 Labs: Abnormal Lab Results - Last 24 Hours (Table) 12/26/17 12/26/17 12/27/17 Range/Units 17:33 21:03 04:16 RBC (3.80-5.40) m/uL Hgb (11.4-16.0) gm/dL Chloride 111 H (98-107) mmol/L Carbon Dioxide 20 L (22-30) mmol/L BUN 27 H (7-17) mg/dL Glucose 100 H (74-99) mg/dL POC Glucose (mg/dL) 223 H 136 H (75-99) mg/dL Calcium 8.2 L (8.4-10.2) mg/dL AST 38 H (14-36) U/L Total Protein 4.7 L (6.3-8.2) g/dL Albumin 2.4 L (3.5-5.0) g/dL 12/27/17 12/27/17 12/27/17 Range/Units 04:16 06:31 07:32 RBC 3.51 L (3.80-5.40) m/uL Hgb 10.6 L (11.4-16.0) gm/dL Chloride (98-107) mmol/L Carbon Dioxide (22-30) mmol/L BUN (7-17) mg/dL Glucose (74-99) mg/dL POC Glucose (mg/dL) 109 H 127 H (75-99) mg/dL Calcium (8.4-10.2) mg/dL AST (14-36) U/L Total Protein (6.3-8.2) g/dL Albumin (3.5-5.0) g/dL 12/27/17 Range/Units 12:03 RBC (3.80-5.40) m/uL Hgb (11.4-16.0) gm/dL Chloride (98-107) mmol/L Carbon Dioxide (22-30) mmol/L BUN (7-17) mg/dL Glucose (74-99) mg/dL POC Glucose (mg/dL) 137 H (75-99) mg/dL Calcium (8.4-10.2) mg/dL AST (14-36) U/L Total Protein (6.3-8.2) g/dL Albumin (3.5-5.0) g/dL Assessment and Plan (1) SBO (small bowel obstruction) Narrative/Plan: Continue diet as ordered. Ambulate. Current Visit: Yes Status: Acute Code(s): K56.609 - UNSP INTESTNL OBST, UNSP TO PARTIAL VERSUS COMPLETE OBST SNOMED Code(s): 723884917
[2017-12-27] MEDS: AMIODARONE 100 MG TAB PO SCH (12:37)
--- NOTE | 2017-12-27 13:05 | P.PN ---
Subjective Progress Note Date: 12/26/17 87-year-old female, postop day #2, status post exploratory laparotomy with lysis of adhesions. The patient has hypoxemic respiratory failure requiring BiPAP therapy, anion gap metabolic acidosis profound hypotension, paroxysmal atrial fibrillation history is of essential hypertension hyperlipidemia diabetes , severe aortic stenosis, CAD, previous right-sided CVA with left-sided weakness , dementia and DJD. She arrived from the recovery area very unstable to the ICU. Her saturations were in the low 80s on 15 L high flow. In addition, the patient was on high dose of Foster-Synephrine and the blood pressure was only about 80 systolic. Patient was given IV fluid resuscitation along with 2 A of sodium bicarbonate and started a bicarbonate drip; she was placed on BiPAP with IPAP of 12 and EPAP of 6. The Foster-Synephrine was converted to norepinephrine. Currently, she is much more stable although her overall prognosis is guarded. She is a no code patient. Objective - Vital Signs Vital signs: Vital Signs Temp 98 F 12/26/17 12:00 Pulse 108 H 12/26/17 12:30 Resp 29 H 12/26/17 12:30 BP 91/56 12/26/17 12:30 Pulse Ox 97 12/26/17 12:30 Intake & Output 12/25/17 12/26/17 12/26/17 18:59 06:59 18:59 Intake Total 1700.728 7347.063 706 Output Total 322 330 130 Balance 9500.566 8297.063 576 Weight 93.2 kg Intake: IV 1736 1764 456 Dextrose 5% in Water 1, 75 000 ml @ 75 mls/hr IV . [id number] [facility] with Sodium Bicarb (1 Meq/ml) 100 ml Rx#:[id number] Lactated Ringers 1,000 ml 1275 1625 350 @ 75 mls/hr IV .[id number] [facility] Rx#:[id number] Magnesium Sulfate-D5w Pmx 100 1 gm In Dextrose/Water 1 100ml.bag @ 100 mls/hr IVPB Q1H [facility] Rx#: [id number] Piperacillin-Tazobactam 3 150 100 .375 gm In Dextrose/Water 1 50ml.bag @ 12.5 mls/hr IVPB Q8H [facility] Rx#: [id number] Potassium Chloride 10 meq 200 In Water For Injection 1 100ml.bag @ 100 mls/hr IVPB Q1HR [facility] Rx#: [id number] pressure bag 36 39 6 Intake, IV Titration 72.125 182.063 Amount Norepinephrine 4 mg In 72.125 182.063 Sodium Chloride 0.9% 250 ml @ Titrate IV .Q0M [facility] Rx#:[id number] Oral 500 250 Output: Gastric Drainage 60 Urine 262 330 130 Other: Voiding Method Indwelling Catheter Indwelling Catheter Indwelling Catheter ABP, PAP, CO, CI - Last Documented Arterial Blood Pressure 90/40 - Exam No acute distress, with 3 L nasal cannula, awake and alert, and no respiratory distress. HEENT examination is grossly unremarkable. Mucous membranes are moist. No oral lesions noted. Neck supple. Full range of motion. No adenopathy thyromegaly or neck vein distention. Cardiovascular examination reveals regular rhythm rate. S1-S2 normal. No S3 or S4. They are systolic murmurs noted consistent with her known history of aortic stenosis. Lungs reveal bilateral rhonchi and crackles, worse than yesterday. Breath sounds equal bilaterally. No wheezes appreciated. Abdomen soft with occasional bowel sounds. Extremities are intact. No cyanosis clubbing or edema. Skin is without rash or lesion. Neurologic examination is brief but nonfocal. - Labs CBC & Chem 7: 12/27/17 04:16 12/27/17 04:16 Labs: Abnormal Lab Results - Last 24 Hours (Table) 12/25/17 12/25/17 12/26/17 Range/Units 17:31 21:04 04:20 RBC 3.04 L (3.80-5.40) m/uL Hgb 9.2 L (11.4-16.0) gm/dL Hct 28.0 L (34.0-46.0) % Lymphocytes # 0.8 L (1.0-4.8) k/uL Chloride (98-107) mmol/L BUN (7-17) mg/dL Glucose (74-99) mg/dL POC Glucose (mg/dL) 109 H 193 H (75-99) mg/dL Calcium (8.4-10.2) mg/dL AST (14-36) U/L Total Protein (6.3-8.2) g/dL Albumin (3.5-5.0) g/dL 12/26/17 12/26/17 12/26/17 Range/Units 04:20 07:01 12:08 RBC (3.80-5.40) m/uL Hgb (11.4-16.0) gm/dL Hct (34.0-46.0) % Lymphocytes # (1.0-4.8) k/uL Chloride 111 H (98-107) mmol/L BUN 36 H (7-17) mg/dL Glucose 107 H (74-99) mg/dL POC Glucose (mg/dL) 125 H 170 H (75-99) mg/dL Calcium 7.6 L (8.4-10.2) mg/dL AST 38 H (14-36) U/L Total Protein 4.3 L (6.3-8.2) g/dL Albumin 2.2 L (3.5-5.0) g/dL Assessment and Plan Assessment: 1. Postop day #2, status post exploratory laparotomy with lysis of adhesions. 2. Small bowel obstruction secondary to above 3. Hypoxemic respiratory failure, improved on BiPAP 4. Anion gap metabolic acidosis, improved on bicarbonate drip. 5. Hypotension, responsive to fluids and norepinephrine 6. History of paroxysmal atrial fibrillation 7. History of hypertension 8. Hyperlipidemia by history 9. Type 2 diabetes mellitus 10. Severe aortic stenosis 11. History of CAD 12. Previous history of right-sided CVA with left-sided weakness 13. History of dementia PLAN: Critical care/pulmonary service the arterial line can be discontinued; plan is to turn down the IV fluids. The patient's only on O2 by nasal cannula at 2 L. There was no chest x-ray done today. Microbiology thus far negative. White count is 6.3, hemoglobin 9.2, hematocrit 28 and platelet count 264,000. Sodium and potassium are normal. Chloride 111 CO2 24 BUN 36 creatinine 0.71. Anion gap is normal at 6. Medications are reviewed. Additional recommendations and suggestions are per pulmonary service. Prognosis is guarded. We will continue to follow closely. Time with Patient: Greater than 30
[2017-12-27 17:11] LABS: Glucose,Whole Blood 147 mg/dL (75-99)
[2017-12-27 21:19] LABS: Glucose,Whole Blood 120 mg/dL (75-99)
[2017-12-28] MEDS: PIPERACILLIN-TAZOBACTAM 3.375 GM in DEXTROSE/WATER 1 50ML.BAG IVPB SCH ×3 (00:43→16:31)
[2017-12-28] MEDS: HEPARIN SODIUM,PORCINE 5,000 UNIT/ML 1 ML VIAL SQ SCH ×3 (00:43→16:32)
[2017-12-28] MEDS: IPRATROPIUM-ALBUTEROL 3 ML NEB INHALATION SCH ×5 (03:06→19:34)
[2017-12-28 05:53] LABS: HCT 33.5 % (34.0-46.0); HGB 10.7 gm/dL (11.4-16.0); Hypochromasia Slight; MCH 30.5 pg (25.0-35.0); MCHC 32.1 g/dL (31.0-37.0); Mean Platelet Volume 8.2; Platelet Count 300 k/uL (150-450); RBC 3.52 m/uL (3.80-5.40); RDW 14.2 % (11.5-15.5); WBC 11.4 k/uL (3.8-10.6)
[2017-12-28 06:26] LABS: Albumin 2.5 g/dL (3.5-5.0); Calcium 8.2 mg/dL (8.4-10.2); Phosphorus 4.1 mg/dL (2.5-4.5); Total Bilirubin 0.8 mg/dL (0.2-1.3); Total Protein 4.9 g/dL (6.3-8.2)
[2017-12-28 06:31] LABS: Magnesium 1.6 mg/dL (1.6-2.3); Potassium 5.3 mmol/L (3.5-5.1)
[2017-12-28] MEDS: MAGNESIUM SULFATE-D5W PMX 1 GM in DEXTROSE/WATER 1 100ML.BAG IVPB SCH ×2 (06:50→09:05)
[2017-12-28 07:13] LABS: Glucose,Whole Blood 131 mg/dL (75-99)
[2017-12-28] MEDS: INSULIN ASPART 100 UNIT/ML 1 ML 10 ML VIAL SQ SCH ×4 (07:17→21:15)
[2017-12-28] MEDS ORDERED: FUROSEMIDE 10 MG/ML 4 ML VIAL IV STA (07:55)
--- NOTE | 2017-12-28 08:04 | XR ---
EXAMINATION TYPE: XR chest 1V DATE OF EXAM: 12/28/2017 COMPARISON: 12/27/2017 HISTORY: Shortness of breath TECHNIQUE: Single frontal view of the chest is obtained. FINDINGS: There is worsening of the small pleural effusions, right greater than left, with associate d bibasilar airspace disease. Cardiomegaly and interstitial edema are redemonstrated. Degenerative ch anges of the shoulders and thoracic spine are noted. No sizable pneumothorax. IMPRESSION: Slight worsening of the small bilateral pleural effusions, right greater than left and p ersistent interstitial pulmonary edema.
[2017-12-28] MEDS: PANTOPRAZOLE 40 MG/10 ML VIAL IV SCH (09:04)
[2017-12-28] MEDS: AMIODARONE 100 MG TAB PO SCH (09:06)
--- NOTE | 2017-12-28 10:08 | XR ---
EXAMINATION TYPE: XR abdomen 1V DATE OF EXAM: 12/28/2017 CLINICAL HISTORY: Abdominal pain. Illeus. TECHNIQUE: Single view of the abdomen are obtained. COMPARISON: 12/21/2017. FINDINGS: Large and small bowel dilation are present. Large bowel is dilated up to 7.0cm and small b owel up to 3.9cm. Small bowel loops stack upon one another. Evaluation of pneumoperitoneum is limited with the supine technique. Surgical edward are left parami dline. Gastriectasis is also present. Degenerative changes of the osseous structures are seen. IMPRESSION: Dilation of both large and small bowel representing the known small bowel obstruction as seen on the prior CT of 12/21/2017.
[2017-12-28] MEDS: METOCLOPRAMIDE 5 MG/ML 2 ML VIAL IVP SCH ×3 (10:30→21:17)
--- NOTE | 2017-12-28 10:47 | P.PN ---
Subjective Progress Note Date: 12/28/17 Principal diagnosis: Small bowel obstruction, status post exploratory laparotomy with lysis of adhesions, hypoxemic respiratory failure Progress note dated 12/25/2017 87-year-old female, postop day #1, status post exploratory laparotomy with lysis of adhesions. The patient has hypoxemic respiratory failure requiring BiPAP therapy, anion gap metabolic acidosis profound hypotension, paroxysmal atrial fibrillation history is of essential hypertension hyperlipidemia diabetes , severe aortic stenosis, CAD, previous right-sided CVA with left-sided weakness , dementia and DJD. She arrived from the recovery area very unstable yesterday to the ICU. Her saturations were in the low 80s on 15 L high flow. In addition , the patient was on high dose of Foster-Synephrine and the blood pressure was only about 80 systolic. We quickly delivered some additional fluids. We also gave her 2 A of sodium bicarbonate and started a bicarbonate drip. In addition , we placed her on BiPAP with IPAP of 12 and EPAP of 6. The Foster-Synephrine was converted to norepinephrine. Currently, she is much more stable although her overall prognosis is guarded. She is a no code patient. I did have an opportunity to speak to the surgeon yesterday. In addition, I did speak to both daughters yesterday. They understand the gravity of the situation. This morning, we'll repeat a blood gas. We may be up. The sodium bicarbonate drip. We'll see for can wean off the norepinephrine by giving her some additional fluids. We'll review the labs x-rays and medications. Progress note dated 12/26/2017 87-year-old female, postop day #2, status post exploratory laparotomy with lysis of adhesions. The patient had hypoxemic respiratory failure and required BiPAP therapy initially. In addition, she came in with an anion gap metabolic acidosis, profound hypotension, paroxysmal atrial fibrillation hypertension hyperlipidemia diabetes severe aortic stenosis CAD right-sided CVA with left- sided weakness dementia and DJD. The patient has removed a very remarkable recovery. She certainly is not out of the garrison given her age and multitude of medical problems. Currently, she is on O2 2 L by nasal cannula and IV of lactated Ringer's at 125 mL an hour. That can likely be turned down. The norepinephrine has been weaned off. Chest x-ray was not done today. I did tell the nurse to discontinue the arterial line. We do want her to be a chair at the bedside and we certainly want her using the incentive spirometer every hour while awake. Progress note dated 12/27/2017 87-year-old female, postop day #3, status post exploratory laparotomy with lysis of adhesions. The patient developed hypoxemic respiratory failure and required BiPAP initially. In addition, she had a severe anion gap metabolic acidosis which required IV bicarbonate and a bicarbonate drip. In addition, her profound hypotension was treated with fluid resuscitation and norepinephrine. She also has a history of paroxysmal atrial fibrillation benign essential hypertension hyperlipidemia diabetes severe aortic stenosis CAD , right-sided CVA with left-sided weakness, dementia and DJD. The patient has made very nice progress. Currently, she is on O2 at 3 L by nasal cannula. She is not requiring the BiPAP for a day and a half. It can be discontinued. She remains on lactated Ringer's at 75 mL an hour. Chest x-ray shows fluid overload. We will give her 40 of Lasix IV push and turn the IV down to KVO. In addition, the pulse in the right foot is weak compared to the left side. Doppler study of the right lower extremity along with vascular consult will be initiated. The patient is a DO NOT RESUSCITATE patient. I have been speaking to the daughters on a daily basis. On 12/28/2017 patient seen in follow-up in the intensive care unit, she is awake and alert, she is mildly short of breath, currently on 2 L per nasal cannula pulse ox is 98%, she is mildly tachycardic with a heart rate at 103 bpm , she is afebrile. Today's chest x-ray showed worsening bilateral pleural effusions, right greater than the left and pulmonary edema. Patient received a dose of IV Lasix, she started to diurese. The day she is noted to have a more distended abdomen, but no nausea or vomiting, she was started on oral diet, currently at full liquids, her appetite is poor. Mid abdominal incision is covered with surgical dressing, is clean dry and intact, with small amount of old drainage shadowing on the dressing. His lab was have been reviewed, WBCs 11.4, hemoglobin is 10.7, sodium is 136, potassium is 5.3, BUN is 25 and creatinine 0.72. Patient is covered with antibiotic coverage in the form of Zosyn. She is afebrile. She has not passed any gas yet Objective - Vital Signs Vital signs: Vital Signs Temp 97.9 F 12/28/17 08:00 Pulse 107 H 12/28/17 10:00 Resp 16 12/28/17 10:00 BP 119/82 12/28/17 10:00 Pulse Ox 98 12/28/17 08:00 Intake & Output 12/27/17 12/28/17 12/28/17 18:59 06:59 18:59 Intake Total 475 250 310 Output Total 2290 463 405 Balance -1814 -213 - Weight 91.3 kg 91.3 kg Intake: IV 325 250 310 Lactated Ringers 1,000 ml 275 200 60 @ 20 mls/hr IV .Q24H [facility] Rx#:[id number] Magnesium Sulfate-D5w Pmx 200 1 gm In Dextrose/Water 1 100ml.bag @ 100 mls/hr IVPB Q1H [facility] Rx#: [id number] Piperacillin-Tazobactam 3 50 50 50 .375 gm In Dextrose/Water 1 50ml.bag @ 12.5 mls/hr IVPB Q8H [facility] Rx#: [id number] Oral 150 Output: Urine 2290 463 405 Other: Voiding Method Indwelling Catheter Indwelling Catheter ABP, PAP, CO, CI - Last Documented Arterial Blood Pressure 90/40 - Exam No acute distress, with 3 L nasal cannula, awake and alert, and no respiratory distress. HEENT examination is grossly unremarkable. Mucous membranes are moist. No oral lesions noted. Neck supple. Full range of motion. No adenopathy thyromegaly or neck vein distention. Cardiovascular examination reveals regular rhythm rate. S1-S2 normal. No S3 or S4. They are systolic murmurs noted consistent with her known history of aortic stenosis. Lungs reveal bilateral rhonchi and crackles, worse than yesterday. Breath sounds equal bilaterally. No wheezes appreciated. Diminished breath sounds at bilateral bases Abdomen soft with occasional bowel sounds. Extremities are intact. No cyanosis clubbing or edema. Skin is without rash or lesion. Neurologic examination is brief but nonfocal. - Labs CBC & Chem 7: 12/28/17 04:29 12/28/17 04:29 Labs: Abnormal Lab Results - Last 24 Hours (Table) 12/27/17 12/27/17 12/27/17 Range/Units 12:03 17:09 21:18 WBC (3.8-10.6) k/uL RBC (3.80-5.40) m/uL Hgb (11.4-16.0) gm/dL Hct (34.0-46.0) % Sodium (137-145) mmol/L Potassium (3.5-5.1) mmol/L BUN (7-17) mg/dL Glucose (74-99) mg/dL POC Glucose (mg/dL) 137 H 147 H 120 H (75-99) mg/dL Calcium (8.4-10.2) mg/dL Total Protein (6.3-8.2) g/dL Albumin (3.5-5.0) g/dL 12/28/17 12/28/17 12/28/17 Range/Units 04:29 04:29 07:11 WBC 11.4 H (3.8-10.6) k/uL RBC 3.52 L (3.80-5.40) m/uL Hgb 10.7 L (11.4-16.0) gm/dL Hct 33.5 L (34.0-46.0) % Sodium 136 L (137-145) mmol/L Potassium 5.3 H (3.5-5.1) mmol/L BUN 25 H (7-17) mg/dL Glucose 120 H (74-99) mg/dL POC Glucose (mg/dL) 131 H (75-99) mg/dL Calcium 8.2 L (8.4-10.2) mg/dL Total Protein 4.9 L (6.3-8.2) g/dL Albumin 2.5 L (3.5-5.0) g/dL Assessment and Plan Plan: Assessment: #1. Acute small bowel obstruction, status post exploratory laparotomy with lysis of adhesions, postop day 4 #2. Abdominal distention, absence of bowel sounds, possible ileus. #3. Acute hypoxemic respiratory failure secondary to fluid overload, bilateral pleural effusions, pulmonary edema. #4. Anion gap metabolic acidosis, suspect lactic acidosis related to hypoperfusion, improved #5. Leukocytosis, likely reactive to surgery or graft #6. Hypotension related to hypovolemic shock secondary to small bowel obstruction, resolved #7. Paroxysmal atrial fibrillation, on long-term anticoagulation with Eliquis, which is currently on hold for surgery, currently in sinus rhythm #8. Hypertension, hyperlipidemia, diabetes mellitus type 2 #9. Severe aortic stenosis #10. History of coronary artery disease #11. History of right-sided CVA with left-sided residual weakness #12. Dementia #13. Osteoarthritis Plan: We will make patient nothing by mouth, obtain a flat plate of the abdomen, ileus is suspected. We will change to Reglan 2 every 6 hours around the clock. Continue with gentle diuresis, we will start the patient on 20 mg of IV Lasix daily basis. She already received 40 mg of Lasix today. Currently breathing and coughing, continue incentive spirometry use. Patient will remain in the ICU. I performed a history & physical examination of the patient and discussed their management with my nurse practitioner, Sarah Gunn. I reviewed the nurse practitioner's note and agree with the documented findings and plan of care. Lung sounds are diminished, with bibasilar crackles. The findings and the impression was discussed with the patient. I attest to the documentation by the nurse practitioner. Time with Patient: Greater than 30
--- NOTE | 2017-12-28 11:09 | P.PN ---
Subjective Progress Note Date: 12/28/17 On 12/29/2007 and the patient is postop day #4 and the patient is post expiratory laparotomy and lysis of adhesions for small bowel obstruction. The patient is awake, comfortable. Abdomen is more distended compared to yesterday. She is not passing any flatus or bowel movements. She is not nauseated however there is increased tympany in the abdomen and abdominal exam and based on that I'm concerned of a recurrent ileus. The patient was offered to her liquid diet yesterday. Noted the patient also developed an acute hypoxic respiratory failure and she required BiPAP initially. Currently she is on oxygen at 2 L per minute nasal cannula. No signs of any respiratory distress. She also has developed paroxysmal atrial fibrillation and currently her rhythm is sinus. The patient has other comorbidities including hypertension , hyperlipidemia, IBS mellitus and severe aortic stenosis in addition to coronary artery disease and previous history of right sided CVA and left-sided weakness. She has some underlying dementia in addition. Note that she was given Lasix 40 mg IV push yesterday by Dr. Ling and since then the patient diuresed adequately. Her net fluid balance for is +2.64 yesterday and -2.0 L for today. She is on IV fluids and currently she is receiving lactated Ringer at the rate of 20 mL an hour she is pulse oxing 98% liters of oxygen by nasal cannula. No leukocytosis. No agitation. No altered mentation. Abdominal wound is looking dry clean and intact. Chest x-ray from today is showing some slight worsening in the small bilateral pleural effusions right greater than left and there is some interstitial edema and abdominal film was consistent with ileus Objective - Vital Signs Vital signs: Vital Signs Temp 97.9 F 12/28/17 08:00 Pulse 107 H 12/28/17 10:00 Resp 16 12/28/17 10:00 BP 119/82 12/28/17 10:00 Pulse Ox 98 12/28/17 08:00 Intake & Output 12/27/17 12/28/17 12/28/17 18:59 06:59 18:59 Intake Total 475 250 310 Output Total 2290 463 405 Balance -1815 -213 -95 Weight 91.3 kg 91.3 kg Intake: IV 325 250 310 Lactated Ringers 1,000 ml 275 200 60 @ 20 mls/hr IV .Q24H [facility] Rx#:[id number] Magnesium Sulfate-D5w Pmx 200 1 gm In Dextrose/Water 1 100ml.bag @ 100 mls/hr IVPB Q1H [facility] Rx#: [id number] Piperacillin-Tazobactam 3 50 50 50 .375 gm In Dextrose/Water 1 50ml.bag @ 12.5 mls/hr IVPB Q8H [facility] Rx#: [id number] Oral 150 Output: Urine 2290 463 405 Other: Voiding Method Indwelling Catheter Indwelling Catheter ABP, PAP, CO, CI - Last Documented Arterial Blood Pressure 90/40 - Exam No acute distress, with 3 L nasal cannula, awake and alert, and no respiratory distress. HEENT examination is grossly unremarkable. Mucous membranes are moist. No oral lesions noted. Neck supple. Full range of motion. No adenopathy thyromegaly or neck vein distention. Cardiovascular examination reveals regular rhythm rate. S1-S2 normal. No S3 or S4. They are systolic murmurs noted consistent with her known history of aortic stenosis. Lungs reveal bilateral rhonchi and crackles, worse than yesterday. Breath sounds equal bilaterally. No wheezes appreciated. Abdomen is slightly distended. There is also tympany throughout the 4 quadrants of the abdomen. There is mid abdominal incision that is dry clean and intact. No direct tenderness. No rebound tenderness. No guarding. Extremities are intact. No cyanosis clubbing or edema. Skin is without rash or lesion. Neurologic examination is brief but nonfocal. - Labs CBC & Chem 7: 12/28/17 04:29 12/28/17 04:29 Labs: Abnormal Lab Results - Last 24 Hours (Table) 12/27/17 12/27/17 12/27/17 Range/Units 12:03 17:09 21:18 WBC (3.8-10.6) k/uL RBC (3.80-5.40) m/uL Hgb (11.4-16.0) gm/dL Hct (34.0-46.0) % Sodium (137-145) mmol/L Potassium (3.5-5.1) mmol/L BUN (7-17) mg/dL Glucose (74-99) mg/dL POC Glucose (mg/dL) 137 H 147 H 120 H (75-99) mg/dL Calcium (8.4-10.2) mg/dL Total Protein (6.3-8.2) g/dL Albumin (3.5-5.0) g/dL 12/28/17 12/28/17 12/28/17 Range/Units 04:29 04:29 07:11 WBC 11.4 H (3.8-10.6) k/uL RBC 3.52 L (3.80-5.40) m/uL Hgb 10.7 L (11.4-16.0) gm/dL Hct 33.5 L (34.0-46.0) % Sodium 136 L (137-145) mmol/L Potassium 5.3 H (3.5-5.1) mmol/L BUN 25 H (7-17) mg/dL Glucose 120 H (74-99) mg/dL POC Glucose (mg/dL) 131 H (75-99) mg/dL Calcium 8.2 L (8.4-10.2) mg/dL Total Protein 4.9 L (6.3-8.2) g/dL Albumin 2.5 L (3.5-5.0) g/dL Assessment and Plan Plan: 1 Postop day # 4, status post exploratory laparotomy with lysis of adhesions. On today's evaluation the patient continues to have abdominal distention and the abdominal film that was performed today showed ileus. The abdomen is more distended compared to yesterday. The surgical wound site is dry clean and intact. We'll discuss this with the surgeon and recommend reinsertion of the NG tube and GI rest. 2 Small bowel obstruction secondary to above 3 Hypoxemic respiratory failure, improved on BiPAP, currently on 2 eaters oxygen nasal cannula 4 Anion gap metabolic acidosis, improved on bicarbonate drip. The patient is currently on 20 mL of lactated Ringer 5 Hypotension, responsive to fluids and norepinephrine 6 History of paroxysmal atrial fibrillation, currently sinus 7 History of hypertension 8 Hyperlipidemia by history 9 Type 2 diabetes mellitus 10 Severe aortic stenosis 11 History of CAD 12 Previous history of right-sided CVA with left-sided weakness 13 History of dementia 14 DJD NEHA The patient is doing slightly worse compared to yesterday. Abdomen is more distended. There is a concern for ileus. Discussed this with the surgeon and consider reinserting the NG tube. Put the rosie=wel to rest for now and keep the patient nothing by mouth for now. IV fluids to KVO. Lasix daily 20 mg IV push to optimize the volume status. IV Zosyn as empiric antibiotic coverage. Subcu heparin for DVT prophylaxis. Aspiration precautions. Use incentive spirometer. Aggressive the medication was reviewed no other change from my standpoint. Abdominal film was reviewed. Chest x-ray was reviewed. We'll continue to follow. We'll keep the patient ICU for another 24 hours.
[2017-12-28 12:05] LABS: Glucose,Whole Blood 171 mg/dL (75-99)
--- NOTE | 2017-12-28 13:07 | P.PN ---
Subjective Progress Note Date: 12/28/17 87-year-old female seen this morning at the bedside abdominal distention noted abdomen firm few hypoactive bowel tones patient reports no abdominal pain no nausea no vomiting patient states no stool no passing gas remained nothing by mouth Postop December 24 exploratory laparotomy with lysis of adhesions due to a small bowel obstruction Objective - Vital Signs Vital signs: Vital Signs Temp 98.8 F 12/28/17 12:00 Pulse 106 H 12/28/17 12:00 Resp 25 H 12/28/17 12:00 BP 117/72 12/28/17 12:00 Pulse Ox 96 12/28/17 12:00 Intake & Output 12/27/17 12/28/17 12/28/17 18:59 06:59 18:59 Intake Total 475 250 350 Output Total 2290 463 1075 Balance -1815 -213 -725 Weight 91.3 kg 91.3 kg Intake: IV 325 250 350 Lactated Ringers 1,000 ml 275 200 100 @ 20 mls/hr IV .Q24H [facility] Rx#:[id number] Magnesium Sulfate-D5w Pmx 200 1 gm In Dextrose/Water 1 100ml.bag @ 100 mls/hr IVPB Q1H [facility] Rx#: [id number] Piperacillin-Tazobactam 3 50 50 50 .375 gm In Dextrose/Water 1 50ml.bag @ 12.5 mls/hr IVPB Q8H [facility] Rx#: [id number] Oral 150 Output: Urine 2290 463 1075 Other: Voiding Method Indwelling Catheter Indwelling Catheter Indwelling Catheter ABP, PAP, CO, CI - Last Documented Arterial Blood Pressure 90/40 - Exam Physical exam Pleasant hard of hearing female sitting up in bed when questioning is denying abdominal pain abdomen firm distended Lungs anterior decreased at the bases no wheezing rales or rhonchi nasal cannula at 2 L keeping a sat greater than 96% no shortness of breath Heart S1-S2 audible mildly tachycardic heart rate 90-100 Abdomen firm distended few hypoactive bowel tones no stool no gas no nausea or vomiting reported currently nothing by mouth nontender surgical dressing dry Extremities Venodyne's on to the bilateral lower extremities trace pedal edema - Labs CBC & Chem 7: 12/28/17 04:29 12/28/17 04:29 Labs: Abnormal Lab Results - Last 24 Hours (Table) 12/27/17 12/27/17 12/28/17 Range/Units 17:09 21:18 04:29 WBC 11.4 H (3.8-10.6) k/uL RBC 3.52 L (3.80-5.40) m/uL Hgb 10.7 L (11.4-16.0) gm/dL Hct 33.5 L (34.0-46.0) % Sodium (137-145) mmol/L Potassium (3.5-5.1) mmol/L BUN (7-17) mg/dL Glucose (74-99) mg/dL POC Glucose (mg/dL) 147 H 120 H (75-99) mg/dL Calcium (8.4-10.2) mg/dL Total Protein (6.3-8.2) g/dL Albumin (3.5-5.0) g/dL 12/28/17 12/28/17 12/28/17 Range/Units 04:29 07:11 12:03 WBC (3.8-10.6) k/uL RBC (3.80-5.40) m/uL Hgb (11.4-16.0) gm/dL Hct (34.0-46.0) % Sodium 136 L (137-145) mmol/L Potassium 5.3 H (3.5-5.1) mmol/L BUN 25 H (7-17) mg/dL Glucose 120 H (74-99) mg/dL POC Glucose (mg/dL) 131 H 171 H (75-99) mg/dL Calcium 8.2 L (8.4-10.2) mg/dL Total Protein 4.9 L (6.3-8.2) g/dL Albumin 2.5 L (3.5-5.0) g/dL Assessment and Plan Assessment: Impression Present on admission abdominal pain suspect small bowel obstruction likely due to adhesions per evidence of a CAT scan of the abdomen pelvis Persistent nausea vomiting secondary to #1 Paroxysmal atrial fibrillation on long-term anticoagulation elquis Acute Small bowel obstruction due to lysis of adhesions Postop December 24 exploratory laparotomy with lysis of adhesions Plan Reinsert the nasal gastric tube now Continue postop surgical care PT OT when appropriate Continue ICU management per the electricity trader Restart elquis when appropriate Pain control DVT and GI prophylaxis Will follow with you with further surgical recommendations pending clinical course Repeat labs in the morning The above impression and plan of care have been discussed and directed by signing physician. Zully Barnard nurse practitioner acting as scribe for signing physician.
--- NOTE | 2017-12-28 13:55 | P.PN ---
Subjective Progress Note Date: 12/28/17 12/21/2017 87-year-old female who originally presented to the emergency room due to nausea and vomiting. Computed tomography scan revealed developing distal small bowel obstruction with transition point identified in the upper pelvis just right of the midline presumed product of adhesions. Chest x-ray was negative for an acute process. The patient did have an NG tube placed but according to nursing documentation and was pulled out by the patient on the morning of 12/20/2017. The patient's NG tube was not reinserted per physician order. The patient denied any further episodes of vomiting. She denies nausea at this time. She is tolerating a clear liquid diet. The patient does have good bowel sounds. She denies passing flatus. Denies bowel movement. Abdomen is soft, but does remain distended. Daughter is at the bedside who reports patient's abdomen is larger than her baseline. Patient's vital signs are stable. Temperature this morning at 9.1. Blood pressure 105/62. She is on room air with oxygen saturations greater than 92%. The patient's daughter would like the patient to be discharged to rehab when she is stable and is requesting [facility]. 12/22/2017 Patient seen and examined at the bedside. patient underwent computed tomography scan of the abdomen yesterday which revealed worsening mechanical small bowel obstruction. Patient had an NG tube placed this morning with immediate 1200 mL of drainage. Since insertion the patient has had approximately an additional 1000 mL of drainage. patient's abdomen is less distended today in comparison to yesterday. Patient states her pain has been tolerable. She denies shortness of breath or chest pain. patient's blood pressure is stable. 115/65. She is on room air with an oxygen saturation greater than 92%. The patient is slightly tachycardic with a heart rate in the low 100s. 12/23/2017-Note per Dr. Rivera 12/24/2017 Patient seen and examined at the bedside. Patient is NPO this morning. She is scheduled for exploratory laparotomy this morning. Eliquis remains on hold for OR. Vital signs remain stable. 12/25/2017 Patient seen and examined at the bedside with Dr. Rivera. The patient underwent an exposure laparotomy with lysis of adhesions yesterday. Postoperatively she was hypotensive and hypoxic. She was transferred to the intensive care unit. The patient was placed on BiPAP and given aggressive fluid resuscitation. She was also started on a bicarb drip. She was placed on vasopressors. This morning the patient has improved. She is awake and alert. She is oriented 3. Her Levophed is being weaned off and she is currently on 2mcg. blood pressures in the 90s. She is on nasal cannula with oxygen saturations greater than 92%. TAWANA drain is intact to LIS with very minimal output. 12/26/2017-12/27/2017: notes per covering provider 12/28/2017 Patient seen and examined at the bedside. Patient remains in the intensive care unit. Patient remains off vasopressors. Blood pressure stable. Patient has an indwelling urinary catheter with marginal urine output. Patient reports she has been passing gas over the weekend but does not report passing any flatus this morning. Denies having a bowel movement. Patient had a chest x- ray completed this morning revealing slight worsening of small bilateral pleural effusions, right greater than left and persistent interstitial pulmonary edema. Objective - Vital Signs Vital signs: Vital Signs Temp 98.8 F 12/28/17 12:00 Pulse 105 H 12/28/17 13:00 Resp 22 12/28/17 13:00 BP 120/71 12/28/17 13:00 Pulse Ox 96 12/28/17 13:00 Intake & Output 12/27/17 12/28/17 12/28/17 18:59 06:59 18:59 Intake Total 475 250 370 Output Total 2290 463 1265 Balance -1815 -213 -895 Weight 91.3 kg 91.3 kg Intake: IV 325 250 370 Lactated Ringers 1,000 ml 275 200 120 @ 20 mls/hr IV .Q24H [facility] Rx#:[id number] Magnesium Sulfate-D5w Pmx 200 1 gm In Dextrose/Water 1 100ml.bag @ 100 mls/hr IVPB Q1H [facility] Rx#: [id number] Piperacillin-Tazobactam 3 50 50 50 .375 gm In Dextrose/Water 1 50ml.bag @ 12.5 mls/hr IVPB Q8H [facility] Rx#: [id number] Oral 150 Output: Urine 2290 463 1265 Other: Voiding Method Indwelling Catheter Indwelling Catheter Indwelling Catheter ABP, PAP, CO, CI - Last Documented Arterial Blood Pressure 90/40 - Exam GENERAL: This is a 87-year-old female in no apparent distress at the time of examination. Pleasant and cooperative. HEENT: Head is atraumatic, normocephalic. Pupils are equal, round, and reactive to light. Sclerae anicteric. Conjunctivae are clear. Mucus membranes of the mouth are moist. Neck is supple. RESPIRATORY: Rhonchi auscultated anteriorly. Diminished in the bases with fine rales. No wheezes, rales, or rhonchi. No use of accessory muscles. Patient maintaining oxygen saturation greater than 92%. No chest wall tenderness is noted on palpation or with deep breathing. CARDIOVASCULAR: Regular rate and rhythm, slightly tachycardic. Systolic murmur.S1 and S2 noted. No JVD noted. No S3 or S4 noted. GASTROINTESTINAL: Abdominal distention noted. A few hypoactive bowel sounds are auscultated x 4 quadrants. Midline surgical dressing intact. INTEGUMENTARY: No cyanosis. No jaundice. No rashes noted. No cellulitis noted. EXTREMITIES: 2+ peripheral pulses. +2 bilateral lower extremity edema. No calf tenderness noted. NEUROLOGIC: Cranial nerves II-XII intact. PSYCHIATRIC: Awake, alert, and oriented X 2-3. Appropriate affect. - Labs CBC & Chem 7: 12/28/17 04:29 12/28/17 04:29 Labs: Abnormal Lab Results - Last 24 Hours (Table) 12/27/17 12/27/17 12/28/17 Range/Units 17:09 21:18 04:29 WBC 11.4 H (3.8-10.6) k/uL RBC 3.52 L (3.80-5.40) m/uL Hgb 10.7 L (11.4-16.0) gm/dL Hct 33.5 L (34.0-46.0) % Sodium (137-145) mmol/L Potassium (3.5-5.1) mmol/L BUN (7-17) mg/dL Glucose (74-99) mg/dL POC Glucose (mg/dL) 147 H 120 H (75-99) mg/dL Calcium (8.4-10.2) mg/dL Total Protein (6.3-8.2) g/dL Albumin (3.5-5.0) g/dL 12/28/17 12/28/17 12/28/17 Range/Units 04:29 07:11 12:03 WBC (3.8-10.6) k/uL RBC (3.80-5.40) m/uL Hgb (11.4-16.0) gm/dL Hct (34.0-46.0) % Sodium 136 L (137-145) mmol/L Potassium 5.3 H (3.5-5.1) mmol/L BUN 25 H (7-17) mg/dL Glucose 120 H (74-99) mg/dL POC Glucose (mg/dL) 131 H 171 H (75-99) mg/dL Calcium 8.2 L (8.4-10.2) mg/dL Total Protein 4.9 L (6.3-8.2) g/dL Albumin 2.5 L (3.5-5.0) g/dL Assessment and Plan Plan: ASSESSMENT: Small bowel obstruction, present on admission, status post exposure laparotomy with lysis of adhesions Nausea and vomiting, secondary to above, resolved Postoperative ileus Diabetes mellitus, type II Hyperlipidemia Hypertension Paroxysmal atrial fibrillation, on long-term anticoagulation with Eliquis History of coronary artery disease Aortic stenosis History of CVA Dementia Osteoarthritis Pulmonary edema Acute hypoxic respiratory failure, requiring bipap, resolved Anemia, suspect secondary to acute blood loss from OR in addition to hemodilution from aggressive IV fluid resuscitation History of chronic iron deficiency anemia Hypotension, secondary to hypovolemia, requiring vasopressors, resolved Hypoalbuminemia/moderate protein calorie malnutrition secondary to NPO status PLAN: General surgery, Dr. Rivera, on consult. Appreciate recommendations and input NG tube to be reinserted today NPO 40mg Lasix x 1 dose now. daily lasix started per pulmonary Continue to hold Eliquis while patient is NPO. Resume Eliquis when bowel function returns. PT/OT on consult for placement evaluation Home meds as appropriate Monitor labs GI prophylaxis: Protonix 40 mg IV Daily DVT prophylaxis: Eliquis on hold. Heparin 5000 units subcu every 8 hours. Monitor vital signs and address as appropriate Discharge planning: Patients daughter is requesting subacute rehab at the time of discharge. Requesting [facility]. Further recommendations pending patient's course Nurse practitioner note has been reviewed by physician. Signing provider agrees with the documented findings, assessment, and plan of care.
[2017-12-28 17:04] LABS: Glucose,Whole Blood 133 mg/dL (75-99)
[2017-12-28 20:41] LABS: Glucose,Whole Blood 106 mg/dL (75-99)
[2017-12-28] MEDS: LACTATED RINGERS 1,000 ML IV SCH (21:17)
[2017-12-29] MEDS: PIPERACILLIN-TAZOBACTAM 3.375 GM in DEXTROSE/WATER 1 50ML.BAG IVPB SCH ×4 (00:12→23:46)
[2017-12-29] MEDS: HEPARIN SODIUM,PORCINE 5,000 UNIT/ML 1 ML VIAL SQ SCH ×4 (00:12→23:47)
[2017-12-29] MEDS: METOCLOPRAMIDE 5 MG/ML 2 ML VIAL IVP SCH ×4 (04:01→21:37)
[2017-12-29 05:27] LABS: HGB 10.6 gm/dL (11.4-16.0); Hypochromasia Slight; MCH 30.5 pg (25.0-35.0); MCV 95.4 fL (80.0-100.0); Mean Platelet Volume 7.4; Platelet Count 269 k/uL (150-450); RBC 3.46 m/uL (3.80-5.40); RDW 14.2 % (11.5-15.5); WBC 14.2 k/uL (3.8-10.6)
[2017-12-29 05:46] LABS: Albumin 2.4 g/dL (3.5-5.0); Calcium 8.2 mg/dL (8.4-10.2); Magnesium 1.6 mg/dL (1.6-2.3); Potassium 4.6 mmol/L (3.5-5.1); Total Bilirubin 0.8 mg/dL (0.2-1.3); Total Protein 4.7 g/dL (6.3-8.2)
[2017-12-29] MEDS: MAGNESIUM SULFATE-D5W PMX 1 GM in DEXTROSE/WATER 1 100ML.BAG IVPB SCH ×2 (06:11→07:45)
[2017-12-29 07:10] LABS: Glucose,Whole Blood 107 mg/dL (75-99)
[2017-12-29] MEDS: INSULIN ASPART 100 UNIT/ML 1 ML 10 ML VIAL SQ SCH ×4 (07:10→21:19)
[2017-12-29 07:22] LABS: Glucose,Whole Blood 123 mg/dL (75-99)
[2017-12-29] MEDS: IPRATROPIUM-ALBUTEROL 3 ML NEB INHALATION SCH ×4 (07:53→19:31)
[2017-12-29] MEDS: PANTOPRAZOLE 40 MG/10 ML VIAL IV SCH (08:23)
[2017-12-29] MEDS: FUROSEMIDE 10 MG/ML 2 ML VIAL IV SCH (08:23)
[2017-12-29] MEDS: AMIODARONE 100 MG TAB PO SCH (08:24)
--- NOTE | 2017-12-29 08:34 | P.PN ---
Subjective Progress Note Date: 12/29/17 On 12/28/2017 and the patient is postop day #4 and the patient is post expiratory laparotomy and lysis of adhesions for small bowel obstruction. The patient is awake, comfortable. Abdomen is more distended compared to yesterday. She is not passing any flatus or bowel movements. She is not nauseated however there is increased tympany in the abdomen and abdominal exam and based on that I'm concerned of a recurrent ileus. The patient was offered to her liquid diet yesterday. Noted the patient also developed an acute hypoxic respiratory failure and she required BiPAP initially. Currently she is on oxygen at 2 L per minute nasal cannula. No signs of any respiratory distress. She also has developed paroxysmal atrial fibrillation and currently her rhythm is sinus. The patient has other comorbidities including hypertension , hyperlipidemia, IBS mellitus and severe aortic stenosis in addition to coronary artery disease and previous history of right sided CVA and left-sided weakness. She has some underlying dementia in addition. Note that she was given Lasix 40 mg IV push yesterday by Dr. Ling and since then the patient diuresed adequately. Her net fluid balance for is +2.64 yesterday and -2.0 L for today. She is on IV fluids and currently she is receiving lactated Ringer at the rate of 20 mL an hour she is pulse oxing 98% liters of oxygen by nasal cannula. No leukocytosis. No agitation. No altered mentation. Abdominal wound is looking dry clean and intact. Chest x-ray from today is showing some slight worsening in the small bilateral pleural effusions right greater than left and there is some interstitial edema and abdominal film was consistent with ileus On 12/29/2017, patient is postop day #5. She is much improved compared to yesterday. Note that yesterday she had abdominal distention and assess him of the abdomen showed ileus. Subsequently NG tube was inserted. The abdomen was deflated. The patient felt better. She has produced 2 good bowel movements since yesterday. NG tube is not putting out anything for now and her abdomen is less distended and there is adequate bowel sounds on today's evaluation. No fever. No chills. No abdominal distention. No cardiac arrhythmias. She is awake and alert. She is not having any pain. She is diuresing well with Lasix 20 mg IV on a daily basis. She is on IV Zosyn as an empiric antibiotic coverage. No other significant events overnight. Objective - Vital Signs Vital signs: Vital Signs Temp 97.6 F 12/29/17 08:00 Pulse 104 H 12/29/17 08:00 Resp 19 12/29/17 07:00 BP 96/54 12/29/17 08:00 Pulse Ox 100 12/29/17 08:00 Intake & Output 12/28/17 12/29/17 12/29/17 18:59 06:59 18:59 Intake Total 520 390 140 Output Total 1935 698 110 Balance -1415 -308 30 Weight 91.3 kg 91.5 kg Intake: IV 520 390 140 Lactated Ringers 1,000 ml 220 240 40 @ 20 mls/hr IV .Q24H [facility] Rx#:[id number] Magnesium Sulfate-D5w Pmx 200 100 100 1 gm In Dextrose/Water 1 100ml.bag @ 100 mls/hr IVPB Q1H [facility] Rx#: [id number] Piperacillin-Tazobactam 3 100 .375 gm In Dextrose/Water 1 50ml.bag @ 12.5 mls/hr IVPB Q8H [facility] Rx#: [id number] Piperacillin-Tazobactam 3 50 .375 gm In Dextrose/Water 1 50ml.bag @ 12.5 mls/hr IVPB Q8HR [facility] Rx#: [id number] Output: Urine 1935 698 110 Other: Voiding Method Indwelling Catheter Indwelling Catheter Indwelling Catheter # Bowel Movements 1 ABP, PAP, CO, CI - Last Documented Arterial Blood Pressure 90/40 - Exam No acute distress, with 3 L nasal cannula, awake and alert, and no respiratory distress. The patient has an NG tube in place. HEENT examination is grossly unremarkable. Mucous membranes are moist. No oral lesions noted. Neck supple. Full range of motion. No adenopathy thyromegaly or neck vein distention. Cardiovascular examination reveals regular rhythm rate. S1-S2 normal. No S3 or S4. They are systolic murmurs noted consistent with her known history of aortic stenosis. Lungs reveal bilateral rhonchi and crackles, worse than yesterday. Breath sounds equal bilaterally. No wheezes appreciated. Abdomen is showing adequate bowel sounds. No abdominal distention. Minimal tympany. No direct tenderness. No rebound tenderness no guarding. Incision is dry clean and intact. Extremities are intact. No cyanosis clubbing or edema. Skin is without rash or lesion. Neurologic examination is brief but nonfocal. - Labs CBC & Chem 7: 12/29/17 04:53 12/29/17 04:53 Labs: Abnormal Lab Results - Last 24 Hours (Table) 12/28/17 12/28/17 12/28/17 Range/Units 12:03 17:03 20:39 WBC (3.8-10.6) k/uL RBC (3.80-5.40) m/uL Hgb (11.4-16.0) gm/dL Hct (34.0-46.0) % Sodium (137-145) mmol/L BUN (7-17) mg/dL POC Glucose (mg/dL) 171 H 133 H 106 H (75-99) mg/dL Calcium (8.4-10.2) mg/dL AST (14-36) U/L Total Protein (6.3-8.2) g/dL Albumin (3.5-5.0) g/dL 12/29/17 12/29/17 12/29/17 Range/Units 04:53 04:53 07:09 WBC 14.2 H (3.8-10.6) k/uL RBC 3.46 L (3.80-5.40) m/uL Hgb 10.6 L (11.4-16.0) gm/dL Hct 33.0 L (34.0-46.0) % Sodium 135 L (137-145) mmol/L BUN 24 H (7-17) mg/dL POC Glucose (mg/dL) 107 H (75-99) mg/dL Calcium 8.2 L (8.4-10.2) mg/dL AST 40 H (14-36) U/L Total Protein 4.7 L (6.3-8.2) g/dL Albumin 2.4 L (3.5-5.0) g/dL 12/29/17 Range/Units 07:20 WBC (3.8-10.6) k/uL RBC (3.80-5.40) m/uL Hgb (11.4-16.0) gm/dL Hct (34.0-46.0) % Sodium (137-145) mmol/L BUN (7-17) mg/dL POC Glucose (mg/dL) 123 H (75-99) mg/dL Calcium (8.4-10.2) mg/dL AST (14-36) U/L Total Protein (6.3-8.2) g/dL Albumin (3.5-5.0) g/dL Assessment and Plan Plan: 1 Postop day # 5, status post exploratory laparotomy with lysis of adhesions. The patient developed some mild ileus yesterday and she had an NG tube placed. Since then the patient has improvement in her bowel sounds and she is produced to good bowel movements and NG tube is not putting out the lites. Abdomen is nondistended on today's evaluation. She is much more comfortable compared to yesterday. 2 Small bowel obstruction secondary to above 3 acute Hypoxemic respiratory failure, improved on BiPAP, currently on 2 eaters oxygen nasal cannula 4 Anion gap metabolic acidosis, improved on bicarbonate drip. The patient is currently on 20 mL of lactated Ringer 5 Hypotension, responsive to fluids and norepinephrine 6 History of paroxysmal atrial fibrillation, currently sinus 7 History of hypertension 8 Hyperlipidemia by history 9 Type 2 diabetes mellitus 10 Severe aortic stenosis 11 History of CAD 12 Previous history of right-sided CVA with left-sided weakness 13 History of dementia 14 DJD Plan I'm going to remove the NG tube. Obtain a flat some of the abdomen. Obtain a follow-up chest x-ray. Provide some liquidy diet in the noontime. Continued IV Zosyn as empiric antibiotic coverage. Humalog sliding scale coverage. The Reglan for bowel motility. Zofran for nausea. Decreased mobility. Heparin subcu for DVT prophylaxis. We'll continue to follow.
--- NOTE | 2017-12-29 09:31 | P.PN ---
Subjective Progress Note Date: 12/29/17 87-year-old female seen in the ICU nasal gastric tube to suction abdomen less distended this morning. Few hypoactive bowel tones noted states not passing gas no nausea no vomiting nursing reports patient did have 2 bowel movements yesterday. White count 14.2 this morning electrolytes within normal limits afebrile nasal cannula 3 L with a sat of 100% questioning patient patient stating no abdominal pain Postop December 24 exploratory laparotomy with lysis of adhesions due to a small bowel obstruction Objective - Vital Signs Vital signs: Vital Signs Temp 97.6 F 12/29/17 08:00 Pulse 104 H 12/29/17 08:00 Resp 19 12/29/17 07:00 BP 96/54 12/29/17 08:00 Pulse Ox 100 12/29/17 08:00 Intake & Output 12/28/17 12/29/17 12/29/17 18:59 06:59 18:59 Intake Total 520 390 140 Output Total 1935 698 110 Balance -1415 -308 30 Weight 91.3 kg 91.5 kg Intake: IV 520 390 140 Lactated Ringers 1,000 ml 220 240 40 @ 20 mls/hr IV .Q24H [facility] Rx#:[id number] Magnesium Sulfate-D5w Pmx 200 100 100 1 gm In Dextrose/Water 1 100ml.bag @ 100 mls/hr IVPB Q1H [facility] Rx#: [id number] Piperacillin-Tazobactam 3 100 .375 gm In Dextrose/Water 1 50ml.bag @ 12.5 mls/hr IVPB Q8H [facility] Rx#: [id number] Piperacillin-Tazobactam 3 50 .375 gm In Dextrose/Water 1 50ml.bag @ 12.5 mls/hr IVPB Q8HR [facility] Rx#: [id number] Output: Urine 1935 698 110 Other: Voiding Method Indwelling Catheter Indwelling Catheter Indwelling Catheter # Bowel Movements 1 ABP, PAP, CO, CI - Last Documented Arterial Blood Pressure 90/40 - Exam Physical exam Pleasant 87-year-old female awake and alert sitting up in bed denying any abdominal discomfort when questioning Lungs posterior diminished at the bases no wheezing rales or rhonchi no shortness of breath noted Heart S1-S2 audible Abdomen less distended compared to prior assessment. Hypoactive bowel tones nasal gastric tube to suction indwelling Menon catheter in place reports no nausea vomiting surgical dressing dry Extremities trace pedal edema bilaterally tenderness - Labs CBC & Chem 7: 12/29/17 04:53 12/29/17 04:53 Labs: Abnormal Lab Results - Last 24 Hours (Table) 12/28/17 12/28/17 12/28/17 Range/Units 12:03 17:03 20:39 WBC (3.8-10.6) k/uL RBC (3.80-5.40) m/uL Hgb (11.4-16.0) gm/dL Hct (34.0-46.0) % Sodium (137-145) mmol/L BUN (7-17) mg/dL POC Glucose (mg/dL) 171 H 133 H 106 H (75-99) mg/dL Calcium (8.4-10.2) mg/dL AST (14-36) U/L Total Protein (6.3-8.2) g/dL Albumin (3.5-5.0) g/dL 12/29/17 12/29/17 12/29/17 Range/Units 04:53 04:53 07:09 WBC 14.2 H (3.8-10.6) k/uL RBC 3.46 L (3.80-5.40) m/uL Hgb 10.6 L (11.4-16.0) gm/dL Hct 33.0 L (34.0-46.0) % Sodium 135 L (137-145) mmol/L BUN 24 H (7-17) mg/dL POC Glucose (mg/dL) 107 H (75-99) mg/dL Calcium 8.2 L (8.4-10.2) mg/dL AST 40 H (14-36) U/L Total Protein 4.7 L (6.3-8.2) g/dL Albumin 2.4 L (3.5-5.0) g/dL 12/29/17 Range/Units 07:20 WBC (3.8-10.6) k/uL RBC (3.80-5.40) m/uL Hgb (11.4-16.0) gm/dL Hct (34.0-46.0) % Sodium (137-145) mmol/L BUN (7-17) mg/dL POC Glucose (mg/dL) 123 H (75-99) mg/dL Calcium (8.4-10.2) mg/dL AST (14-36) U/L Total Protein (6.3-8.2) g/dL Albumin (3.5-5.0) g/dL Assessment and Plan Assessment: Impression Present on admission abdominal pain suspect small bowel obstruction likely due to adhesions per evidence of a CAT scan of the abdomen pelvis Persistent nausea vomiting secondary to #1 Paroxysmal atrial fibrillation on long-term anticoagulation elquis Acute Small bowel obstruction due to lysis of adhesions Postop December 24 exploratory laparotomy with lysis of adhesions A prior CVA right side resulting in left-sided weakness Plan Continue IV Zosyn as ordered Continue postop surgical care PT OT when appropriate Continue ICU management per the audio experience expert Restart elquis when appropriate Pain control DVT and GI prophylaxis Will follow with you with further surgical recommendations pending clinical course Per the audio experience expert nasal gastric tube to be removed this morning with flatplate of the abdomen follow-up results The above impression and plan of care have been discussed and directed by signing physician. Zully Barnard nurse practitioner acting as scribe for signing physician.
[2017-12-29] MEDS: DEXTROSE 5% IN WATER 1,000 ML with SODIUM BICARB (1 MEQ/ML) 150 ML IV SCH ×2 (10:35→22:45)
--- NOTE | 2017-12-29 10:45 | XR ---
EXAMINATION TYPE: XR chest 1V portable DATE OF EXAM: 12/29/2017 COMPARISON: Prior chest x-ray 12/28/2017 HISTORY: Small bowel obstruction, NG tube placement TECHNIQUE: Single frontal view of the chest is obtained. FINDINGS: NG tube has been place, catheter coursing into the upper abdomen. Patient is rotated. Biba silar increased density persists. No evident pneumothorax. Heart size is stable. Perihilar airspace d isease is thought to persist. There are overlying cardiac leads. High riding right shoulder could be due to chronic rotator cuff tear. IMPRESSION: Interval tube placement, there may be basilar effusions and associated atelectasis versu s edema, correlate to exclude pneumonia.
--- NOTE | 2017-12-29 10:46 | P.PN ---
Subjective Progress Note Date: 12/29/17 12/21/2017 87-year-old female who originally presented to the emergency room due to nausea and vomiting. Computed tomography scan revealed developing distal small bowel obstruction with transition point identified in the upper pelvis just right of the midline presumed product of adhesions. Chest x-ray was negative for an acute process. The patient did have an NG tube placed but according to nursing documentation and was pulled out by the patient on the morning of 12/20/2017. The patient's NG tube was not reinserted per physician order. The patient denied any further episodes of vomiting. She denies nausea at this time. She is tolerating a clear liquid diet. The patient does have good bowel sounds. She denies passing flatus. Denies bowel movement. Abdomen is soft, but does remain distended. Daughter is at the bedside who reports patient's abdomen is larger than her baseline. Patient's vital signs are stable. Temperature this morning at 9.1. Blood pressure 105/62. She is on room air with oxygen saturations greater than 92%. The patient's daughter would like the patient to be discharged to rehab when she is stable and is requesting [facility]. 12/22/2017 Patient seen and examined at the bedside. patient underwent computed tomography scan of the abdomen yesterday which revealed worsening mechanical small bowel obstruction. Patient had an NG tube placed this morning with immediate 1200 mL of drainage. Since insertion the patient has had approximately an additional 1000 mL of drainage. patient's abdomen is less distended today in comparison to yesterday. Patient states her pain has been tolerable. She denies shortness of breath or chest pain. patient's blood pressure is stable. 115/65. She is on room air with an oxygen saturation greater than 92%. The patient is slightly tachycardic with a heart rate in the low 100s. 12/23/2017-Note per Dr. Rivera 12/24/2017 Patient seen and examined at the bedside. Patient is NPO this morning. She is scheduled for exploratory laparotomy this morning. Eliquis remains on hold for OR. Vital signs remain stable. 12/25/2017 Patient seen and examined at the bedside with Dr. Rivera. The patient underwent an exposure laparotomy with lysis of adhesions yesterday. Postoperatively she was hypotensive and hypoxic. She was transferred to the intensive care unit. The patient was placed on BiPAP and given aggressive fluid resuscitation. She was also started on a bicarb drip. She was placed on vasopressors. This morning the patient has improved. She is awake and alert. She is oriented 3. Her Levophed is being weaned off and she is currently on 2mcg. blood pressures in the 90s. She is on nasal cannula with oxygen saturations greater than 92%. TAWANA drain is intact to LIS with very minimal output. 12/26/2017-12/27/2017: notes per covering provider 12/28/2017 Patient seen and examined at the bedside. Patient remains in the intensive care unit. Patient remains off vasopressors. Blood pressure stable. Patient has an indwelling urinary catheter with marginal urine output. Patient reports she has been passing gas over the weekend but does not report passing any flatus this morning. Denies having a bowel movement. Patient had a chest x- ray completed this morning revealing slight worsening of small bilateral pleural effusions, right greater than left and persistent interstitial pulmonary edema. 12/29/2017 Patient seen and examined at the bedside. Patient remains in the ICU. Patient had an abdominal x-ray yesterday completed revealing dilation of both large and small bowel representing small bowel obstruction. NG tube was reinserted. Patients abdomen is less distended today. Soft. Patient has had two large bowel movements. Passing flatus. Denies abdominal pain or tenderness. Patient was started on lasix IV daily. She is diuresing well. Nursing reports 60-70 mL an hour through her urinary catheter. Patient was in the chair two days ago, but was not up in the chair yesterday per nursing. However, she was placed in the chair position in the bed. Objective - Vital Signs Vital signs: Vital Signs Temp 97.6 F 12/29/17 08:00 Pulse 103 H 12/29/17 10:00 Resp 22 12/29/17 10:00 BP 103/49 12/29/17 10:00 Pulse Ox 97 12/29/17 10:00 Intake & Output 12/28/17 12/29/17 12/29/17 18:59 06:59 18:59 Intake Total 520 390 205.0 Output Total 1935 698 480 Balance -1415 -308 -275.0 Weight 91.3 kg 91.5 kg Intake: IV 520 390 205.0 Lactated Ringers 1,000 ml 220 240 80 @ 20 mls/hr IV .Q24H [facility] Rx#:[id number] Magnesium Sulfate-D5w Pmx 200 100 100 1 gm In Dextrose/Water 1 100ml.bag @ 100 mls/hr IVPB Q1H [facility] Rx#: [id number] Piperacillin-Tazobactam 3 100 .375 gm In Dextrose/Water 1 50ml.bag @ 12.5 mls/hr IVPB Q8H [facility] Rx#: [id number] Piperacillin-Tazobactam 3 50 25.0 .375 gm In Dextrose/Water 1 50ml.bag @ 12.5 mls/hr IVPB Q8HR [facility] Rx#: [id number] Output: Urine 1935 698 480 Other: Voiding Method Indwelling Catheter Indwelling Catheter Indwelling Catheter # Bowel Movements 1 ABP, PAP, CO, CI - Last Documented Arterial Blood Pressure 90/40 - Exam GENERAL: This is a 87-year-old female in no apparent distress at the time of examination. Pleasant and cooperative. HEENT: Head is atraumatic, normocephalic. Pupils are equal, round, and reactive to light. Sclerae anicteric. Conjunctivae are clear. Mucus membranes of the mouth are moist. Neck is supple. RESPIRATORY: Rhonchi auscultated anteriorly. Diminished in the bases with fine rales. No wheezes, rales, or rhonchi. No use of accessory muscles. Patient maintaining oxygen saturation greater than 92%. No chest wall tenderness is noted on palpation or with deep breathing. CARDIOVASCULAR: Regular rate and rhythm, slightly tachycardic. Systolic murmur.S1 and S2 noted. No JVD noted. No S3 or S4 noted. GASTROINTESTINAL: Abdominal distention improved. Abdomen soft and round. Bowel sounds are auscultated x 4 quadrants. Midline surgical dressing intact. NG tube intact. INTEGUMENTARY: No cyanosis. No jaundice. No rashes noted. No cellulitis noted. EXTREMITIES: 2+ peripheral pulses. +2 bilateral lower extremity edema. No calf tenderness noted. NEUROLOGIC: Cranial nerves II-XII intact. PSYCHIATRIC: Awake, alert, and oriented X 2-3. Appropriate affect. - Labs CBC & Chem 7: 12/29/17 04:53 12/29/17 04:53 Labs: Abnormal Lab Results - Last 24 Hours (Table) 12/28/17 12/28/17 12/28/17 Range/Units 12:03 17:03 20:39 WBC (3.8-10.6) k/uL RBC (3.80-5.40) m/uL Hgb (11.4-16.0) gm/dL Hct (34.0-46.0) % Sodium (137-145) mmol/L BUN (7-17) mg/dL POC Glucose (mg/dL) 171 H 133 H 106 H (75-99) mg/dL Calcium (8.4-10.2) mg/dL AST (14-36) U/L Total Protein (6.3-8.2) g/dL Albumin (3.5-5.0) g/dL 12/29/17 12/29/17 12/29/17 Range/Units 04:53 04:53 07:09 WBC 14.2 H (3.8-10.6) k/uL RBC 3.46 L (3.80-5.40) m/uL Hgb 10.6 L (11.4-16.0) gm/dL Hct 33.0 L (34.0-46.0) % Sodium 135 L (137-145) mmol/L BUN 24 H (7-17) mg/dL POC Glucose (mg/dL) 107 H (75-99) mg/dL Calcium 8.2 L (8.4-10.2) mg/dL AST 40 H (14-36) U/L Total Protein 4.7 L (6.3-8.2) g/dL Albumin 2.4 L (3.5-5.0) g/dL 12/29/17 Range/Units 07:20 WBC (3.8-10.6) k/uL RBC (3.80-5.40) m/uL Hgb (11.4-16.0) gm/dL Hct (34.0-46.0) % Sodium (137-145) mmol/L BUN (7-17) mg/dL POC Glucose (mg/dL) 123 H (75-99) mg/dL Calcium (8.4-10.2) mg/dL AST (14-36) U/L Total Protein (6.3-8.2) g/dL Albumin (3.5-5.0) g/dL Assessment and Plan Plan: ASSESSMENT: Small bowel obstruction, present on admission, status post exposure laparotomy with lysis of adhesions Nausea and vomiting, secondary to above, resolved Postoperative ileus, resolving Diabetes mellitus, type II Hyperlipidemia Hypertension Paroxysmal atrial fibrillation, on long-term anticoagulation with Eliquis History of coronary artery disease Aortic stenosis History of CVA Dementia Osteoarthritis Pulmonary edema Acute hypoxic respiratory failure, requiring bipap, resolved Anemia, suspect secondary to acute blood loss from OR in addition to hemodilution from aggressive IV fluid resuscitation History of chronic iron deficiency anemia Hypotension, secondary to hypovolemia, requiring vasopressors, resolved Hypoalbuminemia/moderate protein calorie malnutrition secondary to NPO status PLAN: General surgery, Dr. Rivera, on consult. Appreciate recommendations and input NG tube to be discontinued today Abdominal xray ordered. Await results. Continue daily lasix IV. Chest xray ordered. await results. Continue to hold Eliquis while patient is NPO. Resume Eliquis when bowel function returns. PT/OT Increase activity. Patient has morgan lift in room. Patient up to chair daily. Home meds as appropriate Monitor labs GI prophylaxis: Protonix 40 mg IV Daily DVT prophylaxis: Eliquis on hold. Heparin 5000 units subcu every 8 hours. Monitor vital signs and address as appropriate Discharge planning: Patients daughter is requesting subacute rehab at the time of discharge. Requesting [facility]. Further recommendations pending patient's course Nurse practitioner note has been reviewed by physician. Signing provider agrees with the documented findings, assessment, and plan of care.
--- NOTE | 2017-12-29 10:51 | XR ---
EXAMINATION TYPE: XR abdomen 1V DATE OF EXAM: 12/29/2017 CLINICAL DATA: 87-year-old female follow-up small bowel obstruction, [facility] COMPARISON: 12/28/2017 FINDINGS: NG tube remains in place. Motion artifact at the lung bases. Supine imaging limited for assessment of free air. Prominent air throughout the stomach and most of the colon. Additional prominent small bowel air with small bowel loops measuring up to 3.7 cm versus 3.9 cm, previously. Air extends distally into the re ctum. Skin edward projecting over midline abdomen. Multiple pelvic phlebolith. IMPRESSION: Supine imaging. Some of the dilated small bowel loops show slight improvement measuring up to 3.7 cm versus 3.9 cm, previously. Air is now present throughout the colon extending distally to the rectum. Correlate for either resolving small bowel obstruction or generalized ileus.
[2017-12-29 11:47] LABS: Glucose,Whole Blood 128 mg/dL (75-99)
[2017-12-29 17:16] LABS: Glucose,Whole Blood 220 mg/dL (75-99)
[2017-12-29] MEDS: LACTATED RINGERS 1,000 ML IV SCH (20:00)
[2017-12-29 21:16] LABS: Glucose,Whole Blood 168 mg/dL (75-99)
[2017-12-30] MEDS: DEXTROSE 5% IN WATER 1,000 ML with SODIUM BICARB (1 MEQ/ML) 150 ML IV SCH ×2 (02:03→11:11)
[2017-12-30] MEDS: METOCLOPRAMIDE 5 MG/ML 2 ML VIAL IVP SCH ×4 (04:29→21:18)
[2017-12-30 05:49] LABS: HCT 29.3 % (34.0-46.0); HGB 9.6 gm/dL (11.4-16.0); MCH 30.9 pg (25.0-35.0); MCHC 32.9 g/dL (31.0-37.0); Platelet Count 285 k/uL (150-450); RBC 3.12 m/uL (3.80-5.40); RDW 14.3 % (11.5-15.5); WBC 9.5 k/uL (3.8-10.6)
[2017-12-30 05:59] LABS: Anion Gap 5 mmol/L; Blood Urea Nitrogen 16 mg/dL (7-17); Calcium 7.3 mg/dL (8.4-10.2); Carbon Dioxide 34 mmol/L (22-30); Chloride 96 mmol/L (98-107); Glucose 126 mg/dL (74-99); Magnesium 1.6 mg/dL (1.6-2.3); Phosphorus 3.4 mg/dL (2.5-4.5); Potassium 3.7 mmol/L (3.5-5.1); Sodium 135 mmol/L (137-145)
[2017-12-30 06:40] LABS: Glucose,Whole Blood 164 mg/dL (75-99)
[2017-12-30] MEDS: IPRATROPIUM-ALBUTEROL 3 ML NEB INHALATION SCH ×4 (06:41→20:12)
[2017-12-30] MEDS: INSULIN ASPART 100 UNIT/ML 1 ML 10 ML VIAL SQ SCH ×4 (06:44→21:16)
[2017-12-30] MEDS: MAGNESIUM SULFATE-D5W PMX 1 GM in DEXTROSE/WATER 1 100ML.BAG IVPB SCH ×2 (06:44→11:22)
[2017-12-30] MEDS: LACTATED RINGERS 1,000 ML IV SCH (06:51)
[2017-12-30] MEDS ORDERED: POTASSIUM CHLORIDE ER 20 MEQ TAB.ER PO SCH (07:00)
[2017-12-30 07:28] LABS: Glucose,Whole Blood 175 mg/dL (75-99)
--- NOTE | 2017-12-30 07:44 | XR ---
EXAMINATION TYPE: XR chest 1V portable DATE OF EXAM: 12/30/2017 COMPARISON: 12/29/2017 HISTORY: Shortness of breath. Recent enteric tube removal. TECHNIQUE: Single frontal view of the chest is obtained. FINDINGS: There is a worsening [id number] right pleural effusion and stable small left pleura l effusion. These partially secure the cardiomediastinal silhouette although this appears stable and enlarged. Minimal pulmonary vascular congestion is seen. Multilevel moderate degenerative changes of the thoracic spine are noted in addition to generalized osseous demineralization. No sizable pneumoth orax. IMPRESSION: Increasing right small to moderate pleural effusion and stable left pleural effusion wit h associated compressive atelectasis and stable mild pulmonary vascular congestion. Findings are like ly on the basis of cardiogenic fluid overload.
[2017-12-30] MEDS: FUROSEMIDE 10 MG/ML 2 ML VIAL IV SCH (08:43)
[2017-12-30] MEDS: HEPARIN SODIUM,PORCINE 5,000 UNIT/ML 1 ML VIAL SQ SCH (08:55)
[2017-12-30] MEDS: PIPERACILLIN-TAZOBACTAM 3.375 GM in DEXTROSE/WATER 1 50ML.BAG IVPB SCH ×2 (08:56→15:47)
[2017-12-30] MEDS: PANTOPRAZOLE 40 MG/10 ML VIAL IV SCH (08:56)
[2017-12-30] MEDS: AMIODARONE 100 MG TAB PO SCH (08:56)
--- NOTE | 2017-12-30 10:50 | P.PN ---
Subjective Progress Note Date: 12/30/17 Principal diagnosis: Small bowel obstruction, status post exploratory laparotomy with lysis of adhesions, hypoxemic respiratory failure Progress note dated 12/25/2017 87-year-old female, postop day #1, status post exploratory laparotomy with lysis of adhesions. The patient has hypoxemic respiratory failure requiring BiPAP therapy, anion gap metabolic acidosis profound hypotension, paroxysmal atrial fibrillation history is of essential hypertension hyperlipidemia diabetes , severe aortic stenosis, CAD, previous right-sided CVA with left-sided weakness , dementia and DJD. She arrived from the recovery area very unstable yesterday to the ICU. Her saturations were in the low 80s on 15 L high flow. In addition , the patient was on high dose of Foster-Synephrine and the blood pressure was only about 80 systolic. We quickly delivered some additional fluids. We also gave her 2 A of sodium bicarbonate and started a bicarbonate drip. In addition , we placed her on BiPAP with IPAP of 12 and EPAP of 6. The Foster-Synephrine was converted to norepinephrine. Currently, she is much more stable although her overall prognosis is guarded. She is a no code patient. I did have an opportunity to speak to the surgeon yesterday. In addition, I did speak to both daughters yesterday. They understand the gravity of the situation. This morning, we'll repeat a blood gas. We may be up. The sodium bicarbonate drip. We'll see for can wean off the norepinephrine by giving her some additional fluids. We'll review the labs x-rays and medications. Progress note dated 12/26/2017 87-year-old female, postop day #2, status post exploratory laparotomy with lysis of adhesions. The patient had hypoxemic respiratory failure and required BiPAP therapy initially. In addition, she came in with an anion gap metabolic acidosis, profound hypotension, paroxysmal atrial fibrillation hypertension hyperlipidemia diabetes severe aortic stenosis CAD right-sided CVA with left- sided weakness dementia and DJD. The patient has removed a very remarkable recovery. She certainly is not out of the garrison given her age and multitude of medical problems. Currently, she is on O2 2 L by nasal cannula and IV of lactated Ringer's at 125 mL an hour. That can likely be turned down. The norepinephrine has been weaned off. Chest x-ray was not done today. I did tell the nurse to discontinue the arterial line. We do want her to be a chair at the bedside and we certainly want her using the incentive spirometer every hour while awake. Progress note dated 12/27/2017 87-year-old female, postop day #3, status post exploratory laparotomy with lysis of adhesions. The patient developed hypoxemic respiratory failure and required BiPAP initially. In addition, she had a severe anion gap metabolic acidosis which required IV bicarbonate and a bicarbonate drip. In addition, her profound hypotension was treated with fluid resuscitation and norepinephrine. She also has a history of paroxysmal atrial fibrillation benign essential hypertension hyperlipidemia diabetes severe aortic stenosis CAD , right-sided CVA with left-sided weakness, dementia and DJD. The patient has made very nice progress. Currently, she is on O2 at 3 L by nasal cannula. She is not requiring the BiPAP for a day and a half. It can be discontinued. She remains on lactated Ringer's at 75 mL an hour. Chest x-ray shows fluid overload. We will give her 40 of Lasix IV push and turn the IV down to KVO. In addition, the pulse in the right foot is weak compared to the left side. Doppler study of the right lower extremity along with vascular consult will be initiated. The patient is a DO NOT RESUSCITATE patient. I have been speaking to the daughters on a daily basis. On 12/28/2017 patient seen in follow-up in the intensive care unit, she is awake and alert, she is mildly short of breath, currently on 2 L per nasal cannula pulse ox is 98%, she is mildly tachycardic with a heart rate at 103 bpm , she is afebrile. Today's chest x-ray showed worsening bilateral pleural effusions, right greater than the left and pulmonary edema. Patient received a dose of IV Lasix, she started to diurese. The day she is noted to have a more distended abdomen, but no nausea or vomiting, she was started on oral diet, currently at full liquids, her appetite is poor. Mid abdominal incision is covered with surgical dressing, is clean dry and intact, with small amount of old drainage shadowing on the dressing. His lab was have been reviewed, WBCs 11.4, hemoglobin is 10.7, sodium is 136, potassium is 5.3, BUN is 25 and creatinine 0.72. Patient is covered with antibiotic coverage in the form of Zosyn. She is afebrile. She has not passed any gas yet On 12/29/2017 patient seen in follow-up in the intensive care unit. She is awake and alert, in no acute distress, currently on 2 L per nasal cannula, pulse ox is 95%, she is afebrile, she is not requiring any vasopressor support. Maintenance IV fluid is D5W with 3 A of bicarbonate at a rate of 150 ML per hour, no other drips. Today's lab work has been reviewed, WBC is 9.5, hemoglobin is 9.6, sodium is 135, chloride is 96, CO2 is 34, BUN 16, creatinine 0.69. Patient is passing bowel movements, yesterday she had 2 episodes of loose bowel movements, C. diff was tested and was negative. Bowel sounds 4, on today's exam is slightly more distended, but no nausea or vomiting, NG tube was discontinued yesterday, patient is tolerating clear liquid diet. Chest x- ray was reviewed by Dr. Edmonds, showed increasing right [id number]-rodixrtf pleural effusion and stable left pleural effusion with compressive atelectasis and stable pulmonary vascular congestion. Patient denies any pain. Mid abdominal incision is clean dry and intact, covered with a dressing. Continue with the same dose of IV diuretics of 20 mg daily. We will discontinue the bicarbonate drip, will advance the diet. Continue same antibiotic coverage. Objective - Vital Signs Vital signs: Vital Signs Temp 98.2 F 12/30/17 08:00 Pulse 88 12/30/17 10:00 Resp 23 12/30/17 10:00 BP 104/57 12/30/17 10:00 Pulse Ox 95 12/30/17 10:00 Intake & Output 12/29/17 12/30/17 12/30/17 18:59 06:59 18:59 Intake Total 1967.5 1700 367.5 Output Total 1705 585 600 Balance 262.5 1115 -232.5 Weight 87.9 kg Intake: IV 255.0 1700 117.5 Dextrose 5% in Water 1, 750 000 ml @ 150 mls/hr IV . Q7H40M [facility] with Sodium Bicarb (1 Meq/ml) 150 ml Rx#:[id number] Dextrose 5% in Water 1, 900 000 ml @ 75 mls/hr IV . [id number] [facility] with Sodium Bicarb (1 Meq/ml) 100 ml Rx#:[id number] Lactated Ringers 1,000 ml 80 80 @ 20 mls/hr IV .Q24H [facility] Rx#:[id number] Magnesium Sulfate-D5w Pmx 100 1 gm In Dextrose/Water 1 100ml.bag @ 100 mls/hr IVPB Q1H [facility] Rx#: [id number] Piperacillin-Tazobactam 3 75.0 50 37.5 .375 gm In Dextrose/Water 1 50ml.bag @ 12.5 mls/hr IVPB Q8HR [facility] Rx#: [id number] Intake, IV Titration 1312.5 Amount Dextrose 5% in Water 1, 1300 000 ml @ 150 mls/hr IV . Q7H40M [facility] with Sodium Bicarb (1 Meq/ml) 150 ml Rx#:[id number] Piperacillin-Tazobactam 3 12.5 .375 gm In Dextrose/Water 1 50ml.bag @ 12.5 mls/hr IVPB Q8HR [facility] Rx#: [id number] Oral 400 250 Output: Urine 1705 585 600 Other: Voiding Method Indwelling Catheter Indwelling Catheter Indwelling Catheter # Bowel Movements 1 2 1 ABP, PAP, CO, CI - Last Documented Arterial Blood Pressure 90/40 - Exam No acute distress, with 3 L nasal cannula, awake and alert, and no respiratory distress. HEENT examination is grossly unremarkable. Mucous membranes are moist. No oral lesions noted. Neck supple. Full range of motion. No adenopathy thyromegaly or neck vein distention. Cardiovascular examination reveals regular rhythm rate. S1-S2 normal. No S3 or S4. They are systolic murmurs noted consistent with her known history of aortic stenosis. Lungs reveal bilateral rhonchi and crackles, worse than yesterday. Breath sounds equal bilaterally. No wheezes appreciated. Diminished breath sounds at bilateral bases Abdomen soft with occasional bowel sounds. Extremities are intact. No cyanosis clubbing or edema. Skin is without rash or lesion. Neurologic examination is brief but nonfocal. - Labs CBC & Chem 7: 12/30/17 05:23 12/30/17 05:23 Labs: Abnormal Lab Results - Last 24 Hours (Table) 12/29/17 12/29/17 12/29/17 Range/Units 11:46 17:14 21:14 RBC (3.80-5.40) m/uL Hgb (11.4-16.0) gm/dL Hct (34.0-46.0) % Sodium (137-145) mmol/L Chloride (98-107) mmol/L Carbon Dioxide (22-30) mmol/L Glucose (74-99) mg/dL POC Glucose (mg/dL) 128 H 220 H 168 H (75-99) mg/dL Calcium (8.4-10.2) mg/dL 12/30/17 12/30/17 12/30/17 Range/Units 05:23 05:23 06:39 RBC 3.12 L (3.80-5.40) m/uL Hgb 9.6 L (11.4-16.0) gm/dL Hct 29.3 L (34.0-46.0) % Sodium 135 L (137-145) mmol/L Chloride 96 L (98-107) mmol/L Carbon Dioxide 34 H (22-30) mmol/L Glucose 126 H (74-99) mg/dL POC Glucose (mg/dL) 164 H (75-99) mg/dL Calcium 7.3 L (8.4-10.2) mg/dL 12/30/17 Range/Units 07:26 RBC (3.80-5.40) m/uL Hgb (11.4-16.0) gm/dL Hct (34.0-46.0) % Sodium (137-145) mmol/L Chloride (98-107) mmol/L Carbon Dioxide (22-30) mmol/L Glucose (74-99) mg/dL POC Glucose (mg/dL) 175 H (75-99) mg/dL Calcium (8.4-10.2) mg/dL Assessment and Plan Plan: Assessment: #1. Acute small bowel obstruction, status post exploratory laparotomy with lysis of adhesions, postop day 5 #2. Abdominal distention, patient is now passing bowel movements, no nausea or vomiting. Repeat abdominal x-ray from yesterday showed improvement of the dilation of small bowel loops, small bowel obstruction or ileus is resolving. #3. Acute hypoxemic respiratory failure secondary to fluid overload, bilateral pleural effusions, pulmonary edema. #4. Anion gap metabolic acidosis, suspect lactic acidosis related to hypoperfusion, improved #5. Leukocytosis, likely reactive to surgery #6. Hypotension related to hypovolemic shock secondary to small bowel obstruction, resolved #7. Paroxysmal atrial fibrillation, on long-term anticoagulation with Eliquis, which is currently on hold for surgery, currently in sinus rhythm #8. Hypertension, hyperlipidemia, diabetes mellitus type 2 #9. Severe aortic stenosis #10. History of coronary artery disease #11. History of right-sided CVA with left-sided residual weakness #12. Dementia #13. Osteoarthritis Plan: Continue current antibiotic coverage, continue encouraging deep breathing and coughing, incentive spirometry use. She is calm and comfortable, denies any shortness of breath or chest pain. Continue IV Lasix, today's chest x-ray shows persistent bilateral pleural effusions. We will stop the bicarbonate drip , and switched patient to normal saline at a rate of KVO. Patient is passing bowel movements, and repeat abdominal x-ray from yesterday showed slowly resolving ileus and small bowel obstruction. c-diff was negative. Continue current medical treatment. DVT and GI prophylaxis. I performed a history & physical examination of the patient and discussed their management with my nurse practitioner, Sarah Gunn. I reviewed the nurse practitioner's note and agree with the documented findings and plan of care. Lung sounds are diminished, with bibasilar crackles. The findings and the impression was discussed with the patient. I attest to the documentation by the nurse practitioner. Time with Patient: Greater than 30
[2017-12-30 11:26] LABS: Glucose,Whole Blood 152 mg/dL (75-99)
[2017-12-30 12:15] LABS: Glucose,Whole Blood 161 mg/dL (75-99)
--- NOTE | 2017-12-30 12:18 | P.PN ---
Subjective Progress Note Date: 12/30/17 87-year-old female seen and examined at the bedside increasingly more awake and alert currently is denying abdominal pain when questioning nasal gastric tube removed yesterday reportedly tolerating a liquid diet Postop December 24 exploratory laparotomy with lysis of adhesions due to a small bowel obstruction Objective - Vital Signs Vital signs: Vital Signs Temp 98.1 F 12/30/17 12:00 Pulse 84 12/30/17 12:00 Resp 21 12/30/17 12:00 BP 104/57 12/30/17 11:00 Pulse Ox 97 12/30/17 12:00 Intake & Output 12/29/17 12/30/17 12/30/17 18:59 06:59 18:59 Intake Total 1967.5 1700 620.0 Output Total 9144 286 9667 Balance 262.5 1115 -655.0 Weight 87.9 kg Intake: IV 255.0 1700 170.0 Dextrose 5% in Water 1, 750 000 ml @ 150 mls/hr IV . Q7H40M [facility] with Sodium Bicarb (1 Meq/ml) 150 ml Rx#:[id number] Dextrose 5% in Water 1, 900 000 ml @ 75 mls/hr IV . [id number] [facility] with Sodium Bicarb (1 Meq/ml) 100 ml Rx#:[id number] Lactated Ringers 1,000 ml 80 120 @ 20 mls/hr IV .Q24H [facility] Rx#:[id number] Magnesium Sulfate-D5w Pmx 100 1 gm In Dextrose/Water 1 100ml.bag @ 100 mls/hr IVPB Q1H [facility] Rx#: [id number] Piperacillin-Tazobactam 3 75.0 50 50.0 .375 gm In Dextrose/Water 1 50ml.bag @ 12.5 mls/hr IVPB Q8HR [facility] Rx#: [id number] Intake, IV Titration 1312.5 200 Amount Dextrose 5% in Water 1, 1300 000 ml @ 150 mls/hr IV . Q7H40M [facility] with Sodium Bicarb (1 Meq/ml) 150 ml Rx#:[id number] Magnesium Sulfate-D5w Pmx 200 1 gm In Dextrose/Water 1 100ml.bag @ 100 mls/hr IVPB Q1H [facility] Rx#: [id number] Piperacillin-Tazobactam 3 12.5 .375 gm In Dextrose/Water 1 50ml.bag @ 12.5 mls/hr IVPB Q8HR [facility] Rx#: [id number] Oral 400 250 Output: Urine [id number] Other: Voiding Method Indwelling Catheter Indwelling Catheter Indwelling Catheter # Bowel Movements 1 2 1 ABP, PAP, CO, CI - Last Documented Arterial Blood Pressure 90/40 - Exam Physical exam Pleasant 87-year-old female more awake alert sitting up in bed denying any abdominal discomfort when questioning Lungs posterior diminished at the bases no wheezing rales or rhonchi no shortness of breath noted sat 97% on 3 L Heart S1-S2 audible heart rate in the 80s Abdomen less distended compared to prior assessment. Hypoactive bowel tones indwelling [place] catheter in place reports no nausea vomiting surgical dressing dry tenderness appropriate Extremities trace pedal edema bilaterally tenderness - Labs CBC & Chem 7: 12/30/17 05:23 12/30/17 05:23 Labs: Abnormal Lab Results - Last 24 Hours (Table) 12/29/17 12/29/17 12/30/17 Range/Units 17:14 21:14 05:23 RBC (3.80-5.40) m/uL Hgb (11.4-16.0) gm/dL Hct (34.0-46.0) % Sodium 135 L (137-145) mmol/L Chloride 96 L (98-107) mmol/L Carbon Dioxide 34 H (22-30) mmol/L Glucose 126 H (74-99) mg/dL POC Glucose (mg/dL) 220 H 168 H (75-99) mg/dL Calcium 7.3 L (8.4-10.2) mg/dL 12/30/17 12/30/17 12/30/17 Range/Units 05:23 06:39 07:26 RBC 3.12 L (3.80-5.40) m/uL Hgb 9.6 L (11.4-16.0) gm/dL Hct 29.3 L (34.0-46.0) % Sodium (137-145) mmol/L Chloride (98-107) mmol/L Carbon Dioxide (22-30) mmol/L Glucose (74-99) mg/dL POC Glucose (mg/dL) 164 H 175 H (75-99) mg/dL Calcium (8.4-10.2) mg/dL 12/30/17 Range/Units 11:24 RBC (3.80-5.40) m/uL Hgb (11.4-16.0) gm/dL Hct (34.0-46.0) % Sodium (137-145) mmol/L Chloride (98-107) mmol/L Carbon Dioxide (22-30) mmol/L Glucose (74-99) mg/dL POC Glucose (mg/dL) 152 H (75-99) mg/dL Calcium (8.4-10.2) mg/dL Assessment and Plan Assessment: Impression Present on admission abdominal pain suspect small bowel obstruction likely due to adhesions per evidence of a CAT scan of the abdomen pelvis Persistent nausea vomiting secondary to #1 Paroxysmal atrial fibrillation on long-term anticoagulation elquis Acute Small bowel obstruction due to lysis of adhesions Postop December 24 exploratory laparotomy with lysis of adhesions 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 Zully Barnard nurse practitioner acting as scribe for signing physician.
--- NOTE | 2017-12-30 13:56 | P.PN ---
Subjective Progress Note Date: 12/30/17 12/21/2017 87-year-old female who originally presented to the emergency room due to nausea and vomiting. Computed tomography scan revealed developing distal small bowel obstruction with transition point identified in the upper pelvis just right of the midline presumed product of adhesions. Chest x-ray was negative for an acute process. The patient did have an NG tube placed but according to nursing documentation and was pulled out by the patient on the morning of 12/20/2017. The patient's NG tube was not reinserted per physician order. The patient denied any further episodes of vomiting. She denies nausea at this time. She is tolerating a clear liquid diet. The patient does have good bowel sounds. She denies passing flatus. Denies bowel movement. Abdomen is soft, but does remain distended. Daughter is at the bedside who reports patient's abdomen is larger than her baseline. Patient's vital signs are stable. Temperature this morning at 9.1. Blood pressure 105/62. She is on room air with oxygen saturations greater than 92%. The patient's daughter would like the patient to be discharged to rehab when she is stable and is requesting [facility]. 12/22/2017 Patient seen and examined at the bedside. patient underwent computed tomography scan of the abdomen yesterday which revealed worsening mechanical small bowel obstruction. Patient had an NG tube placed this morning with immediate 1200 mL of drainage. Since insertion the patient has had approximately an additional 1000 mL of drainage. patient's abdomen is less distended today in comparison to yesterday. Patient states her pain has been tolerable. She denies shortness of breath or chest pain. patient's blood pressure is stable. 115/65. She is on room air with an oxygen saturation greater than 92%. The patient is slightly tachycardic with a heart rate in the low 100s. 12/23/2017-Note per Dr. Rivera 12/24/2017 Patient seen and examined at the bedside. Patient is NPO this morning. She is scheduled for exploratory laparotomy this morning. Eliquis remains on hold for OR. Vital signs remain stable. 12/25/2017 Patient seen and examined at the bedside with Dr. Rivera. The patient underwent an exposure laparotomy with lysis of adhesions yesterday. Postoperatively she was hypotensive and hypoxic. She was transferred to the intensive care unit. The patient was placed on BiPAP and given aggressive fluid resuscitation. She was also started on a bicarb drip. She was placed on vasopressors. This morning the patient has improved. She is awake and alert. She is oriented 3. Her Levophed is being weaned off and she is currently on 2mcg. blood pressures in the 90s. She is on nasal cannula with oxygen saturations greater than 92%. TA[place] drain is intact to LIS with very minimal output. 12/26/2017-12/27/2017: notes per covering provider 12/28/2017 Patient seen and examined at the bedside. Patient remains in the intensive care unit. Patient remains off vasopressors. Blood pressure stable. Patient has an indwelling urinary catheter with marginal urine output. Patient reports she has been passing gas over the weekend but does not report passing any flatus this morning. Denies having a bowel movement. Patient had a chest x- ray completed this morning revealing slight worsening of small bilateral pleural effusions, right greater than left and persistent interstitial pulmonary edema. 12/29/2017 Patient seen and examined at the bedside. Patient remains in the ICU. Patient had an abdominal x-ray yesterday completed revealing dilation of both large and small bowel representing small bowel obstruction. NG tube was reinserted. Patients abdomen is less distended today. Soft. Patient has had two large bowel movements. Passing flatus. Denies abdominal pain or tenderness. Patient was started on lasix IV daily. She is diuresing well. Nursing reports 60-70 mL an hour through her urinary catheter. Patient was in the chair two days ago, but was not up in the chair yesterday per nursing. However, she was placed in the chair position in the bed. 12/30/2017 Patient seen and examined at the bedside with Dr. Rivera. The patient remains in intensive care unit. Patient's NG tube has been discontinued. She is having bowel movements. Chest x-ray this morning reveals increasing right small to moderate pleural effusion and stable left pleural effusion with associated compressive atelectasis and mild pulmonary vascular congestion. She remains on IV Lasix. Nursing reports that the patient has not been up to the chair yesterday or today. Patient is scheduled to have a midline catheter placed today. Objective - Vital Signs Vital signs: Vital Signs Temp 98.1 F 12/30/17 12:00 Pulse 84 12/30/17 12:00 Resp 21 10/24/18 12:00 BP 104/57 12/30/17 11:00 Pulse Ox 97 12/30/17 12:00 Intake & Output 12/29/17 12/30/17 12/30/17 18:59 06:59 18:59 Intake Total 1967.5 1700 620.0 Output Total 2500 032 9775 Balance 262.5 1115 -655.0 Weight 87.9 kg Intake: IV 255.0 1700 170.0 Dextrose 5% in Water 1, 750 000 ml @ 150 mls/hr IV . Q7H40M [facility] with Sodium Bicarb (1 Meq/ml) 150 ml Rx#:[id number] Dextrose 5% in Water 1, 900 000 ml @ 75 mls/hr IV . [id number] [facility] with Sodium Bicarb (1 Meq/ml) 100 ml Rx#:[id number] Lactated Ringers 1,000 ml 80 120 @ 20 mls/hr IV .Q24H [facility] Rx#:[id number] Magnesium Sulfate-D5w Pmx 100 1 gm In Dextrose/Water 1 100ml.bag @ 100 mls/hr IVPB Q1H [facility] Rx#: [id number] Piperacillin-Tazobactam 3 75.0 50 50.0 .375 gm In Dextrose/Water 1 50ml.bag @ 12.5 mls/hr IVPB Q8HR [facility] Rx#: [id number] Intake, IV Titration 1312.5 200 Amount Dextrose 5% in Water 1, 1300 000 ml @ 150 mls/hr IV . Q7H40M [facility] with Sodium Bicarb (1 Meq/ml) 150 ml Rx#:[id number] Magnesium Sulfate-D5w Pmx 200 1 gm In Dextrose/Water 1 100ml.bag @ 100 mls/hr IVPB Q1H [facility] Rx#: [id number] Piperacillin-Tazobactam 3 12.5 .375 gm In Dextrose/Water 1 50ml.bag @ 12.5 mls/hr IVPB Q8HR [facility] Rx#: [id number] Oral 400 250 Output: Urine 2738 527 9412 Other: Voiding Method Indwelling Catheter Indwelling Catheter Indwelling Catheter # Bowel Movements 1 2 1 ABP, PAP, CO, CI - Last Documented Arterial Blood Pressure 90/40 - Exam GENERAL: This is a 87-year-old female in no apparent distress at the time of examination. Pleasant and cooperative. HEENT: Head is atraumatic, normocephalic. Pupils are equal, round, and reactive to light. Sclerae anicteric. Conjunctivae are clear. Mucus membranes of the mouth are moist. Neck is supple. RESPIRATORY: Rhonchi auscultated anteriorly. Diminished in the bases with fine rales. No wheezes, rales, or rhonchi. No use of accessory muscles. Patient maintaining oxygen saturation greater than 92%. No chest wall tenderness is noted on palpation or with deep breathing. CARDIOVASCULAR: Regular rate and rhythm. Systolic murmur.S1 and S2 noted. No JVD noted. No S3 or S4 noted. GASTROINTESTINAL: Abdominal distention improved. Abdomen soft and round. Bowel sounds are auscultated x 4 quadrants. Midline surgical dressing intact. INTEGUMENTARY: No cyanosis. No jaundice. No rashes noted. No cellulitis noted. EXTREMITIES: 2+ peripheral pulses. +1-2 bilateral lower extremity edema. No calf tenderness noted. NEUROLOGIC: Cranial nerves II-XII intact. PSYCHIATRIC: Awake, alert, and oriented X 2-3. Appropriate affect. - Labs CBC & Chem 7: 12/30/17 05:23 12/30/17 11:38 Labs: Abnormal Lab Results - Last 24 Hours (Table) 12/29/17 12/29/17 12/30/17 Range/Units 17:14 21:14 05:23 RBC (3.80-5.40) m/uL Hgb (11.4-16.0) gm/dL Hct (34.0-46.0) % Sodium 135 L (137-145) mmol/L Chloride 96 L (98-107) mmol/L Carbon Dioxide 34 H (22-30) mmol/L Glucose 126 H (74-99) mg/dL POC Glucose (mg/dL) 220 H 168 H (75-99) mg/dL Calcium 7.3 L (8.4-10.2) mg/dL 12/30/17 12/30/17 12/30/17 Range/Units 05:23 06:39 07:26 RBC 3.12 L (3.80-5.40) m/uL Hgb 9.6 L (11.4-16.0) gm/dL Hct 29.3 L (34.0-46.0) % Sodium (137-145) mmol/L Chloride (98-107) mmol/L Carbon Dioxide (22-30) mmol/L Glucose (74-99) mg/dL POC Glucose (mg/dL) 164 H 175 H (75-99) mg/dL Calcium (8.4-10.2) mg/dL 12/30/17 12/30/17 Range/Units 11:24 12:13 RBC (3.80-5.40) m/uL Hgb (11.4-16.0) gm/dL Hct (34.0-46.0) % Sodium (137-145) mmol/L Chloride (98-107) mmol/L Carbon Dioxide (22-30) mmol/L Glucose (74-99) mg/dL POC Glucose (mg/dL) 152 H 161 H (75-99) mg/dL Calcium (8.4-10.2) mg/dL Assessment and Plan Plan: ASSESSMENT: Small bowel obstruction, present on admission, status post exploratory laparotomy with lysis of adhesions Nausea and vomiting, secondary to above, resolved Postoperative ileus, resolving Diabetes mellitus, type II Hyperlipidemia Hypertension Paroxysmal atrial fibrillation, on long-term anticoagulation with Eliquis History of coronary artery disease Aortic stenosis History of CVA Dementia Osteoarthritis Pulmonary edema Acute hypoxic respiratory failure, requiring bipap, resolved Anemia, suspect secondary to acute blood loss from OR in addition to hemodilution from aggressive IV fluid resuscitation History of chronic iron deficiency anemia Hypotension, secondary to hypovolemia, requiring vasopressors, resolved Hypoalbuminemia/moderate protein calorie malnutrition secondary to NPO status PLAN: Patient may transfer out of the ICU to medical floor. General surgery, Dr. Rivera, on consult. Appreciate recommendations and input Continue daily lasix IV Resume Eliquis now that patient's able to tolerate PO intake PT/OT Increase activity. Patient has morgan lift in room. Patient up to chair daily. Home meds as appropriate Monitor labs GI prophylaxis: Protonix 40 mg PO Daily DVT prophylaxis: Eliquis Monitor vital signs and address as appropriate Discharge planning: Patients daughter is requesting subacute rehab at the time of discharge. Requesting [facility]. Further recommendations pending patient's course Possible discharge Thursday to [facility] if patient continues to make improvements. Social work updated. Nurse practitioner note has been reviewed by physician. Signing provider agrees with the documented findings, assessment, and plan of care.
[2017-12-30 16:51] LABS: Glucose,Whole Blood 165 mg/dL (75-99)
[2017-12-30 20:53] LABS: Glucose,Whole Blood 136 mg/dL (75-99)
[2017-12-30] MEDS: APIXABAN 5 MG TAB PO SCH (21:16)
[2017-12-31] MEDS: PIPERACILLIN-TAZOBACTAM 3.375 GM in DEXTROSE/WATER 1 50ML.BAG IVPB SCH ×3 (00:17→15:49)
[2017-12-31] MEDS: METOCLOPRAMIDE 5 MG/ML 2 ML VIAL IVP SCH ×4 (03:08→20:42)
[2017-12-31 04:52] LABS: HCT 33.5 % (34.0-46.0); HGB 10.8 gm/dL (11.4-16.0); Hypochromasia Slight; MCH 30.9 pg (25.0-35.0); MCHC 32.3 g/dL (31.0-37.0); MCV 95.6 fL (80.0-100.0); Mean Platelet Volume 7.1; Platelet Count 294 k/uL (150-450); RDW 14.2 % (11.5-15.5); WBC 11.2 k/uL (3.8-10.6)
[2017-12-31 05:17] LABS: Phosphorus 3.4 mg/dL (2.5-4.5)
[2017-12-31 05:39] LABS: Potassium 4.3 mmol/L (3.5-5.1)
[2017-12-31 06:13] LABS: Glucose,Whole Blood 107 mg/dL (75-99)
[2017-12-31] MEDS: INSULIN ASPART 100 UNIT/ML 1 ML 10 ML VIAL SQ SCH ×5 (06:30→20:42)
[2017-12-31] MEDS: PANTOPRAZOLE 40 MG TABLET PO SCH (06:30)
[2017-12-31] MEDS: IPRATROPIUM-ALBUTEROL 3 ML NEB INHALATION SCH ×4 (07:49→19:29)
--- NOTE | 2017-12-31 08:24 | XR ---
EXAMINATION TYPE: XR chest 1V portable DATE OF EXAM: 12/31/2017 HISTORY: Shortness of breath. COMPARISON: 12/30/2017 TECHNIQUE: Single view of the chest is submitted. FINDINGS: Demonstrated are scattered senescent parenchymal change. There is pulmonary venous congestion with bilateral pleural effusions and basilar atelectasis and/or infiltrates. Cardiomegaly does persist. Hilar and mediastinal structures are within normal limits. Degenerative changes are seen of the dorsal spine. IMPRESSION: 1. Features of congestive heart failure. Correlate clinically and progress studies are recommended.
[2017-12-31] MEDS: APIXABAN 5 MG TAB PO SCH ×2 (09:16→20:41)
[2017-12-31] MEDS: AMIODARONE 100 MG TAB PO SCH (09:16)
[2017-12-31] MEDS: FUROSEMIDE 10 MG/ML 2 ML VIAL IV SCH (09:17)
[2017-12-31 10:22] VITALS: BMI 34.3
--- NOTE | 2017-12-31 11:04 | P.PN ---
Subjective Progress Note Date: 12/31/17 12/21/2017 87-year-old female who originally presented to the emergency room due to nausea and vomiting. Computed tomography scan revealed developing distal small bowel obstruction with transition point identified in the upper pelvis just right of the midline presumed product of adhesions. Chest x-ray was negative for an acute process. The patient did have an NG tube placed but according to nursing documentation and was pulled out by the patient on the morning of 12/20/2017. The patient's NG tube was not reinserted per physician order. The patient denied any further episodes of vomiting. She denies nausea at this time. She is tolerating a clear liquid diet. The patient does have good bowel sounds. She denies passing flatus. Denies bowel movement. Abdomen is soft, but does remain distended. Daughter is at the bedside who reports patient's abdomen is larger than her baseline. Patient's vital signs are stable. Temperature this morning at 9.1. Blood pressure 105/62. She is on room air with oxygen saturations greater than 92%. The patient's daughter would like the patient to be discharged to rehab when she is stable and is requesting [facility]. 12/22/2017 Patient seen and examined at the bedside. patient underwent computed tomography scan of the abdomen yesterday which revealed worsening mechanical small bowel obstruction. Patient had an NG tube placed this morning with immediate 1200 mL of drainage. Since insertion the patient has had approximately an additional 1000 mL of drainage. patient's abdomen is less distended today in comparison to yesterday. Patient states her pain has been tolerable. She denies shortness of breath or chest pain. patient's blood pressure is stable. 115/65. She is on room air with an oxygen saturation greater than 92%. The patient is slightly tachycardic with a heart rate in the low 100s. 12/23/2017-Note per Dr. Rivera 12/24/2017 Patient seen and examined at the bedside. Patient is NPO this morning. She is scheduled for exploratory laparotomy this morning. Eliquis remains on hold for OR. Vital signs remain stable. 12/25/2017 Patient seen and examined at the bedside with Dr. Rivera. The patient underwent an exposure laparotomy with lysis of adhesions yesterday. Postoperatively she was hypotensive and hypoxic. She was transferred to the intensive care unit. The patient was placed on BiPAP and given aggressive fluid resuscitation. She was also started on a bicarb drip. She was placed on vasopressors. This morning the patient has improved. She is awake and alert. She is oriented 3. Her Levophed is being weaned off and she is currently on 2mcg. blood pressures in the 90s. She is on nasal cannula with oxygen saturations greater than 92%. TAWANA drain is intact to LIS with very minimal output. 12/26/2017-12/27/2017: notes per covering provider 12/28/2017 Patient seen and examined at the bedside. Patient remains in the intensive care unit. Patient remains off vasopressors. Blood pressure stable. Patient has an indwelling urinary catheter with marginal urine output. Patient reports she has been passing gas over the weekend but does not report passing any flatus this morning. Denies having a bowel movement. Patient had a chest x- ray completed this morning revealing slight worsening of small bilateral pleural effusions, right greater than left and persistent interstitial pulmonary edema. 12/29/2017 Patient seen and examined at the bedside. Patient remains in the ICU. Patient had an abdominal x-ray yesterday completed revealing dilation of both large and small bowel representing small bowel obstruction. NG tube was reinserted. Patients abdomen is less distended today. Soft. Patient has had two large bowel movements. Passing flatus. Denies abdominal pain or tenderness. Patient was started on lasix IV daily. She is diuresing well. Nursing reports 60-70 mL an hour through her urinary catheter. Patient was in the chair two days ago, but was not up in the chair yesterday per nursing. However, she was placed in the chair position in the bed. 12/30/2017 Patient seen and examined at the bedside with Dr. Rivera. The patient remains in intensive care unit. Patient's NG tube has been discontinued. She is having bowel movements. Chest x-ray this morning reveals increasing right small to moderate pleural effusion and stable left pleural effusion with associated compressive atelectasis and mild pulmonary vascular congestion. She remains on IV Lasix. Nursing reports that the patient has not been up to the chair yesterday or today. Patient is scheduled to have a midline catheter placed today. 12/31/2017 Patient seen and examined at the bedside with Dr. Rivera. The patient remains in intensive care unit. Patient does have transfer orders to transfer to general medical floor. There are no beds currently available. The patient is tolerating a full liquid diet. The patient states she sat up in a chair yesterday for approximately 4 hours. The patient reports she felt much better after getting out of bed and sitting up in the chair. The patient remains on Lasix 20 mg IV daily. Patient's chest x-ray today reveals pulmonary venous congestion with bilateral pleural effusions. Features of congestive heart failure. X-ray does show improvement from yesterday. Objective - Vital Signs Vital signs: Vital Signs Temp 98.1 F 12/31/17 08:00 Pulse 92 12/31/17 10:00 Resp 20 12/31/17 10:00 BP 110/54 12/31/17 10:00 Pulse Ox 98 12/31/17 09:00 Intake & Output 12/30/17 12/31/17 12/31/17 18:59 06:59 18:59 Intake Total 1397.5 240 90 Output Total 2075 850 520 Balance -677.5 -610 -430 Weight 87.9 kg Intake: IV 347.5 240 90 Lactated Ringers 1,000 ml 260 240 40 @ 20 mls/hr IV .Q24H [facility] Rx#:[id number] Piperacillin-Tazobactam 3 87.5 50 .375 gm In Dextrose/Water 1 50ml.bag @ 12.5 mls/hr IVPB Q8HR [facility] Rx#: [id number] Intake, IV Titration 200 Amount Magnesium Sulfate-D5w Pmx 200 1 gm In Dextrose/Water 1 100ml.bag @ 100 mls/hr IVPB Q1H [facility] Rx#: [id number] Oral 850 Output: Urine 2075 850 520 Other: Voiding Method Indwelling Catheter Indwelling Catheter Indwelling Catheter # Bowel Movements 1 0 ABP, PAP, CO, CI - Last Documented Arterial Blood Pressure 90/40 - Exam GENERAL: This is a 87-year-old female in no apparent distress at the time of examination. Pleasant and cooperative. HEENT: Head is atraumatic, normocephalic. Pupils are equal, round, and reactive to light. Sclerae anicteric. Conjunctivae are clear. Mucus membranes of the mouth are moist. Neck is supple. RESPIRATORY: Diminished in the bases. No wheezes, rales, or rhonchi. No use of accessory muscles. Patient maintaining oxygen saturation greater than 92%. No chest wall tenderness is noted on palpation or with deep breathing. CARDIOVASCULAR: Regular rate and rhythm. Systolic murmur.S1 and S2 noted. No JVD noted. No S3 or S4 noted. GASTROINTESTINAL: Abdominal distention improved. Abdomen soft and round. Bowel sounds are auscultated x 4 quadrants. Midline surgical dressing intact. INTEGUMENTARY: No cyanosis. No jaundice. No rashes noted. No cellulitis noted. EXTREMITIES: 1+ peripheral pulses. +1-2 bilateral lower extremity edema. +1 edema to bilateral upper extremities. No calf tenderness noted. NEUROLOGIC: Cranial nerves II-XII intact. PSYCHIATRIC: Awake, alert, and oriented X 2-3. Appropriate affect. - Labs CBC & Chem 7: 12/31/17 03:48 12/31/17 03:48 Labs: Abnormal Lab Results - Last 24 Hours (Table) 12/30/17 12/30/17 12/30/17 Range/Units 11:24 12:13 16:49 WBC (3.8-10.6) k/uL RBC (3.80-5.40) m/uL Hgb (11.4-16.0) gm/dL Hct (34.0-46.0) % Sodium (137-145) mmol/L POC Glucose (mg/dL) 152 H 161 H 165 H (75-99) mg/dL Calcium (8.4-10.2) mg/dL 12/30/17 12/31/17 12/31/17 Range/Units 20:51 03:48 03:48 WBC 11.2 H (3.8-10.6) k/uL RBC 3.50 L (3.80-5.40) m/uL Hgb 10.8 L (11.4-16.0) gm/dL Hct 33.5 L (34.0-46.0) % Sodium 133 L (137-145) mmol/L POC Glucose (mg/dL) 136 H (75-99) mg/dL Calcium 8.0 L (8.4-10.2) mg/dL 12/31/17 Range/Units 06:11 WBC (3.8-10.6) k/uL RBC (3.80-5.40) m/uL Hgb (11.4-16.0) gm/dL Hct (34.0-46.0) % Sodium (137-145) mmol/L POC Glucose (mg/dL) 107 H (75-99) mg/dL Calcium (8.4-10.2) mg/dL Assessment and Plan Plan: ASSESSMENT: Small bowel obstruction, present on admission, status post exploratory laparotomy with lysis of adhesions Nausea and vomiting, secondary to above, resolved Postoperative ileus, resolving Diabetes mellitus, type II Hyperlipidemia Hypertension Paroxysmal atrial fibrillation, on long-term anticoagulation with Eliquis History of coronary artery disease Aortic stenosis History of CVA Dementia Osteoarthritis Pulmonary edema Acute hypoxic respiratory failure, requiring bipap, resolved Anemia, suspect secondary to acute blood loss from OR in addition to hemodilution from aggressive IV fluid resuscitation History of chronic iron deficiency anemia Hypotension, secondary to hypovolemia, requiring vasopressors, resolved Hypoalbuminemia/moderate protein calorie malnutrition secondary to NPO status PLAN: Patient may transfer out of the ICU to medical floor. General surgery, Dr. Rivera, on consult. Appreciate recommendations and input Continue daily lasix IV per pulmonary Resume Eliquis now that patient's able to tolerate PO intake PT/OT Increase activity. Patient up to chair daily at a minimum. Home meds as appropriate Monitor labs GI prophylaxis: Protonix 40 mg PO Daily DVT prophylaxis: Eliquis Monitor vital signs and address as appropriate Discharge planning: Patients daughter is requesting subacute rehab at the time of discharge. Requesting [facility]. Further recommendations pending patient's course Anticipate discharge to [facility] on Thursday if patient continues to make improvements. Social work updated. Nurse practitioner note has been reviewed by physician. Signing provider agrees with the documented findings, assessment, and plan of care.
[2017-12-31] MEDS: MULTIVITAMINS, THERA 1 EACH TAB PO SCH (11:22)
[2017-12-31 12:04] LABS: Glucose,Whole Blood 149 mg/dL (75-99)
--- NOTE | 2017-12-31 14:50 | P.PN ---
Subjective Progress Note Date: 12/31/17 On 12/28/2017 and the patient is postop day #4 and the patient is post expiratory laparotomy and lysis of adhesions for small bowel obstruction. The patient is awake, comfortable. Abdomen is more distended compared to yesterday. She is not passing any flatus or bowel movements. She is not nauseated however there is increased tympany in the abdomen and abdominal exam and based on that I'm concerned of a recurrent ileus. The patient was offered to her liquid diet yesterday. Noted the patient also developed an acute hypoxic respiratory failure and she required BiPAP initially. Currently she is on oxygen at 2 L per minute nasal cannula. No signs of any respiratory distress. She also has developed paroxysmal atrial fibrillation and currently her rhythm is sinus. The patient has other comorbidities including hypertension , hyperlipidemia, IBS mellitus and severe aortic stenosis in addition to coronary artery disease and previous history of right sided CVA and left-sided weakness. She has some underlying dementia in addition. Note that she was given Lasix 40 mg IV push yesterday by Dr. Ling and since then the patient diuresed adequately. Her net fluid balance for is +2.64 yesterday and -2.0 L for today. She is on IV fluids and currently she is receiving lactated Ringer at the rate of 20 mL an hour she is pulse oxing 98% liters of oxygen by nasal cannula. No leukocytosis. No agitation. No altered mentation. Abdominal wound is looking dry clean and intact. Chest x-ray from today is showing some slight worsening in the small bilateral pleural effusions right greater than left and there is some interstitial edema and abdominal film was consistent with ileus On 12/29/2017, patient is postop day #5. She is much improved compared to yesterday. Note that yesterday she had abdominal distention and assess him of the abdomen showed ileus. Subsequently NG tube was inserted. The abdomen was deflated. The patient felt better. She has produced 2 good bowel movements since yesterday. NG tube is not putting out anything for now and her abdomen is less distended and there is adequate bowel sounds on today's evaluation. No fever. No chills. No abdominal distention. No cardiac arrhythmias. She is awake and alert. She is not having any pain. She is diuresing well with Lasix 20 mg IV on a daily basis. She is on IV Zosyn as an empiric antibiotic coverage. No other significant events overnight. On 12/29/2017 patient seen in follow-up in the intensive care unit. She is awake and alert, in no acute distress, currently on 2 L per nasal cannula, pulse ox is 95%, she is afebrile, she is not requiring any vasopressor support. Maintenance IV fluid is D5W with 3 A of bicarbonate at a rate of 150 ML per hour, no other drips. Today's lab work has been reviewed, WBC is 9.5, hemoglobin is 9.6, sodium is 135, chloride is 96, CO2 is 34, BUN 16, creatinine 0.69. Patient is passing bowel movements, yesterday she had 2 episodes of loose bowel movements, C. diff was tested and was negative. Bowel sounds 4, on today's exam is slightly more distended, but no nausea or vomiting, NG tube was discontinued yesterday, patient is tolerating clear liquid diet. Chest x- ray was reviewed by Dr. Edmonds, showed increasing right [id number] pleural effusion and stable left pleural effusion with compressive atelectasis and stable pulmonary vascular congestion. Patient denies any pain. Mid abdominal incision is clean dry and intact, covered with a dressing. Continue with the same dose of IV diuretics of 20 mg daily. We will discontinue the bicarbonate drip, will advance the diet. Continue same antibiotic coverage. On 12/30/2017, the patient is awake and alert without any significant abdominal pain or abdominal distress no nausea no vomiting. No emesis. She has been tolerating soft diet. No fever. No chills. Hemodynamically stable. Still on IV Lasix. Chest x-ray showing improvement in the volume status and improvement and they aeration of the lungs bilaterally. The patient's white cell count was 11.2. This blood work and electrodes are all within normal limits. Incision over the mid abdomen is clean and intact. No other significant events overnight. Renal function is stable. No significant metabolic acidosis. She is awake and alert and following commands and answering questions appropriately. Objective - Vital Signs Vital signs: Vital Signs Temp 98.1 F 12/31/17 11:20 Pulse 97 12/31/17 11:20 Resp 18 12/31/17 11:20 BP 96/51 12/31/17 11:20 Pulse Ox 95 12/31/17 11:20 Intake & Output 12/30/17 12/31/17 12/31/17 18:59 06:59 18:59 Intake Total 1397.5 240 347 Output Total 2075 850 520 Balance -677.5 -610 -173 Weight 87.9 kg Intake: IV 347.5 240 90 Lactated Ringers 1,000 ml 260 240 40 @ 20 mls/hr IV .Q24H [facility] Rx#:[id number] Piperacillin-Tazobactam 3 87.5 50 .375 gm In Dextrose/Water 1 50ml.bag @ 12.5 mls/hr IVPB Q8HR [facility] Rx#: [id number] Intake, IV Titration 200 Amount Magnesium Sulfate-D5w Pmx 200 1 gm In Dextrose/Water 1 100ml.bag @ 100 mls/hr IVPB Q1H [facility] Rx#: [id number] Oral 850 257 Output: Urine 5 850 520 Other: Voiding Method Indwelling Catheter Indwelling Catheter Indwelling Catheter # Bowel Movements 1 0 ABP, PAP, CO, CI - Last Documented Arterial Blood Pressure 90/40 - Exam No acute distress, with 3 L nasal cannula, awake and alert, and no respiratory distress. The patient is awake and communicating and she's not in acute distress. HEENT examination is grossly unremarkable. Mucous membranes are moist. No oral lesions noted. Neck supple. Full range of motion. No adenopathy thyromegaly or neck vein distention. Cardiovascular examination reveals regular rhythm rate. S1-S2 normal. No S3 or S4. They are systolic murmurs noted consistent with her known history of aortic stenosis. Lungs reveal bilateral rhonchi and crackles, worse than yesterday. Breath sounds equal bilaterally. No wheezes appreciated. Abdomen is showing adequate bowel sounds. No abdominal distention. Minimal tympany. No direct tenderness. No rebound tenderness no guarding. Incision is dry clean and intact. Extremities are intact. No cyanosis clubbing or edema. Skin is without rash or lesion. Neurologic examination is brief but nonfocal. - Labs CBC & Chem 7: 12/31/17 03:48 12/31/17 03:48 Labs: Abnormal Lab Results - Last 24 Hours (Table) 12/30/17 12/30/17 12/31/17 Range/Units 16:49 20:51 03:48 WBC 11.2 H (3.8-10.6) k/uL RBC 3.50 L (3.80-5.40) m/uL Hgb 10.8 L (11.4-16.0) gm/dL Hct 33.5 L (34.0-46.0) % Sodium (137-145) mmol/L POC Glucose (mg/dL) 165 H 136 H (75-99) mg/dL Calcium (8.4-10.2) mg/dL 12/31/17 12/31/17 12/31/17 Range/Units 03:48 06:11 12:02 WBC (3.8-10.6) k/uL RBC (3.80-5.40) m/uL Hgb (11.4-16.0) gm/dL Hct (34.0-46.0) % Sodium 133 L (137-145) mmol/L POC Glucose (mg/dL) 107 H 149 H (75-99) mg/dL Calcium 8.0 L (8.4-10.2) mg/dL Assessment and Plan Plan: 1 Postop day # 6, status post exploratory laparotomy with lysis of adhesions. Patient is recovering nicely. The patient is on soft diet is being advanced pH is producing adequate amount of bowel activity. No nausea no vomiting. No emesis. Incision over the mid abdomen is dry clean and intact. 2 Small bowel obstruction secondary to above 3 acute Hypoxemic respiratory failure, improved on BiPAP, currently on 2 eaters oxygen nasal cannula. The patient is being diuresis as the patient was found to to have interstitial edema 4 Anion gap metabolic acidosis, recovered 5 Hypotension, recovered 6 History of paroxysmal atrial fibrillation, currently sinus 7 History of hypertension 8 Hyperlipidemia by history 9 Type 2 diabetes mellitus 10 Severe aortic stenosis 11 History of CAD 12 Previous history of right-sided CVA with left-sided weakness 13 History of dementia 14 DJD Plan Patient is doing extremely well. Advance diet. Work with physical therapy. She was able to sit on a chair briefly yesterday. We'll do more of this today. Continue using incentive spirometer. Send her to a medical surgical floor. Her condition is stable for now.
--- NOTE | 2017-12-31 15:23 | P.PN ---
Subjective Progress Note Date: 12/31/17 87-year-old female seen this morning. Patient is much more awake and alert. Currently denying abdominal pain. No nausea no vomiting. Tolerating a diet. Patient is to be transferred out of the ICU any general medical floor bed opens up currently no beds available Postop December 24 exploratory laparotomy with lysis of adhesions due to a small bowel obstruction Objective - Vital Signs Vital signs: Vital Signs Temp 98.3 F 12/31/17 14:50 Pulse 92 12/31/17 14:50 Resp 18 12/31/17 14:50 BP 101/49 12/31/17 14:50 Pulse Ox 97 12/31/17 14:50 Intake & Output 12/30/17 12/31/17 12/31/17 18:59 06:59 18:59 Intake Total 1397.5 240 347 Output Total 2075 850 520 Balance -677.5 -610 -173 Weight 87.9 kg Intake: IV 347.5 240 90 Lactated Ringers 1,000 ml 260 240 40 @ 20 mls/hr IV .Q24H [facility] Rx#:[id number] Piperacillin-Tazobactam 3 87.5 50 .375 gm In Dextrose/Water 1 50ml.bag @ 12.5 mls/hr IVPB Q8HR [facility] Rx#: [id number] Intake, IV Titration 200 Amount Magnesium Sulfate-D5w Pmx 200 1 gm In Dextrose/Water 1 100ml.bag @ 100 mls/hr IVPB Q1H [facility] Rx#: [id number] Oral 850 257 Output: Urine 2075 850 520 Other: Voiding Method Indwelling Catheter Indwelling Catheter Indwelling Catheter # Bowel Movements 1 0 0 ABP, PAP, CO, CI - Last Documented Arterial Blood Pressure 90/40 - Exam Physical exam Sitting up in bed more awake and alert Lungs diminished at the bases otherwise adequate air movement Heart S1-S2 audible regular abdomen surgical dressing site dry denying any abdominal pain when questioning tolerating a diet no nausea no vomiting Extremities trace pedal edema noted puffiness noted to the hand - Labs CBC & Chem 7: 12/31/17 03:48 12/31/17 03:48 Labs: Abnormal Lab Results - Last 24 Hours (Table) 12/30/17 12/30/17 12/31/17 Range/Units 16:49 20:51 03:48 WBC 11.2 H (3.8-10.6) k/uL RBC 3.50 L (3.80-5.40) m/uL Hgb 10.8 L (11.4-16.0) gm/dL Hct 33.5 L (34.0-46.0) % Sodium (137-145) mmol/L POC Glucose (mg/dL) 165 H 136 H (75-99) mg/dL Calcium (8.4-10.2) mg/dL 12/31/17 12/31/17 12/31/17 Range/Units 03:48 06:11 12:02 WBC (3.8-10.6) k/uL RBC (3.80-5.40) m/uL Hgb (11.4-16.0) gm/dL Hct (34.0-46.0) % Sodium 133 L (137-145) mmol/L POC Glucose (mg/dL) 107 H 149 H (75-99) mg/dL Calcium 8.0 L (8.4-10.2) mg/dL Assessment and Plan Assessment: Impression Present on admission abdominal pain suspect small bowel obstruction likely due to adhesions per evidence of a CAT scan of the abdomen pelvis Persistent nausea vomiting secondary to #1 Paroxysmal atrial fibrillation on long-term anticoagulation elquis Acute Small bowel obstruction due to lysis of adhesions Postop December 24 exploratory laparotomy with lysis of adhesions A prior CVA right side resulting in left-sided weakness Chest x-ray shows increased right small to moderate pleural effusion stable left pleural effusion Plan Continue IV Zosyn as ordered Continue postop surgical care PT OT when appropriate Restart elquis when appropriate Pain control DVT and GI prophylaxis Will follow with you with further surgical recommendations pending clinical course The above impression and plan of care have been discussed and directed by signing physician. Zully Barnard nurse practitioner acting as scribe for signing physician.
[2017-12-31] MEDS: LACTATED RINGERS 1,000 ML IV SCH (15:50)
[2017-12-31 16:58] LABS: Glucose,Whole Blood 186 mg/dL (75-99)
[2017-12-31 20:44] LABS: Glucose,Whole Blood 172 mg/dL (75-99)
[2018-01-01] MEDS: PIPERACILLIN-TAZOBACTAM 3.375 GM in DEXTROSE/WATER 1 50ML.BAG IVPB SCH ×4 (00:12→23:11)
[2018-01-01] MEDS: METOCLOPRAMIDE 5 MG/ML 2 ML VIAL IVP SCH ×4 (03:49→21:21)
[2018-01-01] MEDS: PANTOPRAZOLE 40 MG TABLET PO SCH (06:34)
[2018-01-01] MEDS: IPRATROPIUM-ALBUTEROL 3 ML NEB INHALATION SCH ×4 (07:19→19:46)
[2018-01-01 07:46] LABS: Glucose,Whole Blood 131 mg/dL (75-99)
[2018-01-01] MEDS: INSULIN ASPART 100 UNIT/ML 1 ML 10 ML VIAL SQ SCH ×4 (08:13→21:21)
[2018-01-01] MEDS: AMIODARONE 100 MG TAB PO SCH (08:15)
[2018-01-01] MEDS: APIXABAN 5 MG TAB PO SCH ×2 (08:15→21:21)
[2018-01-01 08:21] LABS: HCT 29.5 % (34.0-46.0); HGB 9.5 gm/dL (11.4-16.0); MCH 30.2 pg (25.0-35.0); MCHC 32.3 g/dL (31.0-37.0); MCV 93.5 fL (80.0-100.0); Mean Platelet Volume 6.9; Platelet Count 318 k/uL (150-450); RBC 3.15 m/uL (3.80-5.40); RDW 14.2 % (11.5-15.5); WBC 11.9 k/uL (3.8-10.6)
[2018-01-01 08:36] LABS: Phosphorus 3.4 mg/dL (2.5-4.5); Potassium 4.2 mmol/L (3.5-5.1)
--- NOTE | 2018-01-01 09:34 | XR ---
EXAMINATION TYPE: XR chest 1V portable DATE OF EXAM: 01/01/2018 COMPARISON: 12/31/2017 INDICATION: Wet lung sounds TECHNIQUE: Single frontal view of the chest is obtained. FINDINGS: The heart size is enlarged. The pulmonary vasculature is prominent. Bilateral pleural effusions are present. These may be similar to the prior study. IMPRESSION: 1. Clinical correlation recommended for congestive heart failure. Continued follow-up is recommended.
[2018-01-01] MEDS: FUROSEMIDE 10 MG/ML 2 ML VIAL IV SCH (10:46)
[2018-01-01] MEDS ORDERED: HYDROcodone/APAP 5-325MG 1 EACH TAB PO PRN (11:22)
--- NOTE | 2018-01-01 11:25 | P.PN ---
Subjective Progress Note Date: 01/01/18 87-year-old female seen this morning sitting up in a chair pleasant alert very hard of hearing taking diet no reports of nausea vomiting passing gas and had a bowel movement surgical dressing dry abdomen soft nondistended Postop December 24 exploratory laparotomy with lysis of adhesions due to a small bowel obstruction Objective - Vital Signs Vital signs: Vital Signs Temp 98.4 F 01/01/18 06:05 Pulse 102 H 01/01/18 07:29 Resp 20 01/01/18 06:05 BP 138/78 01/01/18 06:05 Pulse Ox 97 01/01/18 06:05 Intake & Output 12/31/17 01/01/18 01/01/18 18:59 06:59 18:59 Intake Total 584 500 Output Total 1420 1200 Balance -836 -700 Weight 87.9 kg Intake: IV 90 Lactated Ringers 1,000 ml 40 @ 20 mls/hr IV .Q24H EP[facility]IO Rx#:[id number] Piperacillin-Tazobactam 3 50 .375 gm In Dextrose/Water 1 50ml.bag @ 12.5 mls/hr IVPB Q8HR EP[facility]IO Rx#: [id number] Oral 494 500 Output: Urine 1420 1200 Uretheral ([place]) 400 Other: Voiding Method Indwelling Catheter Indwelling Catheter Indwelling Catheter # Bowel Movements 0 1 ABP, PAP, CO, CI - Last Documented Arterial Blood Pressure 90/40 - Exam Physical exam Sitting up in a chair more awake and alert taking diet Lungs diminished at the bases otherwise adequate air movement on room air Heart S1-S2 audible regular abdomen surgical dressing site dry denying any abdominal pain when questioning tolerating a diet no nausea no vomiting Extremities trace pedal edema - Labs CBC & Chem 7: 01/01/18 07:37 01/01/18 07:37 Labs: Abnormal Lab Results - Last 24 Hours (Table) 12/31/17 12/31/17 12/31/17 Range/Units 12:02 16:56 20:34 WBC (3.8-10.6) k/uL RBC (3.80-5.40) m/uL Hgb (11.4-16.0) gm/dL Hct (34.0-46.0) % Sodium (137-145) mmol/L Carbon Dioxide (22-30) mmol/L Glucose (74-99) mg/dL POC Glucose (mg/dL) 149 H 186 H 172 H (75-99) mg/dL Calcium (8.4-10.2) mg/dL 01/01/18 01/01/18 01/01/18 Range/Units 07:15 07:37 07:37 WBC 11.9 H (3.8-10.6) k/uL RBC 3.15 L (3.80-5.40) m/uL Hgb 9.5 L (11.4-16.0) gm/dL Hct 29.5 L (34.0-46.0) % Sodium 136 L (137-145) mmol/L Carbon Dioxide 32 H (22-30) mmol/L Glucose 123 H (74-99) mg/dL POC Glucose (mg/dL) 131 H (75-99) mg/dL Calcium 8.0 L (8.4-10.2) mg/dL Assessment and Plan Assessment: Impression Present on admission abdominal pain suspect small bowel obstruction likely due to adhesions per evidence of a CAT scan of the abdomen pelvis Persistent nausea vomiting secondary to #1 resolved Paroxysmal atrial fibrillation on long-term anticoagulation elquis Acute Small bowel obstruction due to lysis of adhesions Postop December 24 exploratory laparotomy with lysis of adhesions 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 Zully Barnard nurse practitioner acting as scribe for signing physician.
[2018-01-01 11:59] LABS: Glucose,Whole Blood 180 mg/dL (75-99)
--- NOTE | 2018-01-01 16:38 | P.PN ---
Subjective Progress Note Date: 01/01/18 Principal diagnosis: Small bowel obstruction, status post exploratory laparotomy with lysis of adhesions, hypoxemic respiratory failure Progress note dated 12/25/2017 87-year-old female, postop day #1, status post exploratory laparotomy with lysis of adhesions. The patient has hypoxemic respiratory failure requiring BiPAP therapy, anion gap metabolic acidosis profound hypotension, paroxysmal atrial fibrillation history is of essential hypertension hyperlipidemia diabetes , severe aortic stenosis, CAD, previous right-sided CVA with left-sided weakness , dementia and DJD. She arrived from the recovery area very unstable yesterday to the ICU. Her saturations were in the low 80s on 15 L high flow. In addition , the patient was on high dose of Foster-Synephrine and the blood pressure was only about 80 systolic. We quickly delivered some additional fluids. We also gave her 2 A of sodium bicarbonate and started a bicarbonate drip. In addition , we placed her on BiPAP with IPAP of 12 and EPAP of 6. The Foster-Synephrine was converted to norepinephrine. Currently, she is much more stable although her overall prognosis is guarded. She is a no code patient. I did have an opportunity to speak to the surgeon yesterday. In addition, I did speak to both daughters yesterday. They understand the gravity of the situation. This morning, we'll repeat a blood gas. We may be up. The sodium bicarbonate drip. We'll see for can wean off the norepinephrine by giving her some additional fluids. We'll review the labs x-rays and medications. Progress note dated 12/26/2017 87-year-old female, postop day #2, status post exploratory laparotomy with lysis of adhesions. The patient had hypoxemic respiratory failure and required BiPAP therapy initially. In addition, she came in with an anion gap metabolic acidosis, profound hypotension, paroxysmal atrial fibrillation hypertension hyperlipidemia diabetes severe aortic stenosis CAD right-sided CVA with left- sided weakness dementia and DJD. The patient has removed a very remarkable recovery. She certainly is not out of the garrison given her age and multitude of medical problems. Currently, she is on O2 2 L by nasal cannula and IV of lactated Ringer's at 125 mL an hour. That can likely be turned down. The norepinephrine has been weaned off. Chest x-ray was not done today. I did tell the nurse to discontinue the arterial line. We do want her to be a chair at the bedside and we certainly want her using the incentive spirometer every hour while awake. Progress note dated 12/27/2017 87-year-old female, postop day #3, status post exploratory laparotomy with lysis of adhesions. The patient developed hypoxemic respiratory failure and required BiPAP initially. In addition, she had a severe anion gap metabolic acidosis which required IV bicarbonate and a bicarbonate drip. In addition, her profound hypotension was treated with fluid resuscitation and norepinephrine. She also has a history of paroxysmal atrial fibrillation benign essential hypertension hyperlipidemia diabetes severe aortic stenosis CAD , right-sided CVA with left-sided weakness, dementia and DJD. The patient has made very nice progress. Currently, she is on O2 at 3 L by nasal cannula. She is not requiring the BiPAP for a day and a half. It can be discontinued. She remains on lactated Ringer's at 75 mL an hour. Chest x-ray shows fluid overload. We will give her 40 of Lasix IV push and turn the IV down to KVO. In addition, the pulse in the right foot is weak compared to the left side. Doppler study of the right lower extremity along with vascular consult will be initiated. The patient is a DO NOT RESUSCITATE patient. I have been speaking to the daughters on a daily basis. On 12/28/2017 patient seen in follow-up in the intensive care unit, she is awake and alert, she is mildly short of breath, currently on 2 L per nasal cannula pulse ox is 98%, she is mildly tachycardic with a heart rate at 103 bpm , she is afebrile. Today's chest x-ray showed worsening bilateral pleural effusions, right greater than the left and pulmonary edema. Patient received a dose of IV Lasix, she started to diurese. The day she is noted to have a more distended abdomen, but no nausea or vomiting, she was started on oral diet, currently at full liquids, her appetite is poor. Mid abdominal incision is covered with surgical dressing, is clean dry and intact, with small amount of old drainage shadowing on the dressing. His lab was have been reviewed, WBCs 11.4, hemoglobin is 10.7, sodium is 136, potassium is 5.3, BUN is 25 and creatinine 0.72. Patient is covered with antibiotic coverage in the form of Zosyn. She is afebrile. She has not passed any gas yet On 12/29/2017 patient seen in follow-up in the intensive care unit. She is awake and alert, in no acute distress, currently on 2 L per nasal cannula, pulse ox is 95%, she is afebrile, she is not requiring any vasopressor support. Maintenance IV fluid is D5W with 3 A of bicarbonate at a rate of 150 ML per hour, no other drips. Today's lab work has been reviewed, WBC is 9.5, hemoglobin is 9.6, sodium is 135, chloride is 96, CO2 is 34, BUN 16, creatinine 0.69. Patient is passing bowel movements, yesterday she had 2 episodes of loose bowel movements, C. diff was tested and was negative. Bowel sounds 4, on today's exam is slightly more distended, but no nausea or vomiting, NG tube was discontinued yesterday, patient is tolerating clear liquid diet. Chest x- ray was reviewed by Dr. Edmonds, showed increasing right [id number] pleural effusion and stable left pleural effusion with compressive atelectasis and stable pulmonary vascular congestion. Patient denies any pain. Mid abdominal incision is clean dry and intact, covered with a dressing. Continue with the same dose of IV diuretics of 20 mg daily. We will discontinue the bicarbonate drip, will advance the diet. Continue same antibiotic coverage. On 01/01/2018 patient seen in follow-up on medical surgical floor. Patient was transferred out of the intensive care unit yesterday. Today she seen resting comfortably in bed, in no acute distress, she is on liters per nasal cannula, pulse ox 96%, she is afebrile, hemodynamically stable. Denies any shortness of breath or pain. Tolerating oral diet. She is passing bowel movements, mid abdominal incision is clean dry and intact, covered with surgical dressing, bowel sounds are positive 4. 0 vomiting, today's chest x-ray has been reviewed , shows prominent pulmonary vasculature, and bilateral total effusions. Lung sounds are positive for bibasilar crackles. we will continue with IV Lasix for now, she is diuresing, he still has moderate degree of upper and lower extremity swelling. Today's lab work has been reviewed, WBCs 11.9, hemoglobin is 9.5, sodium is 136, CO2 is 32, the rest of the electrolytes are unremarkable , renal profile is within normal limits. She denies any -1536 fluid balance. Current antibiotic coverage consisting of Zosyn. No fever or chills. Objective - Vital Signs Vital signs: Vital Signs Temp 97.0 F L 01/01/18 15:00 Pulse 92 01/01/18 16:12 Resp 16 01/01/18 16:12 BP 116/62 01/01/18 15:00 Pulse Ox 96 01/01/18 15:00 Intake & Output 12/31/17 01/01/18 01/01/18 18:59 06:59 18:59 Intake Total 584 500 Output Total 1420 1200 2200 Balance -836 -700 -2200 Weight 87.9 kg Intake: IV 90 Lactated Ringers 1,000 ml 40 @ 20 mls/hr IV .Q24H [facility] Rx#:[id number] Piperacillin-Tazobactam 3 50 .375 gm In Dextrose/Water 1 50ml.bag @ 12.5 mls/hr IVPB Q8HR [facility] Rx#: [id number] Oral 494 500 Output: Urine 1420 1200 2200 Uretheral ([place]) 400 Other: Voiding Method Indwelling Catheter Indwelling Catheter Indwelling Catheter # Bowel Movements 0 1 1 ABP, PAP, CO, CI - Last Documented Arterial Blood Pressure 90/40 - Exam No acute distress, with 3 L nasal cannula, awake and alert, and no respiratory distress. HEENT examination is grossly unremarkable. Mucous membranes are moist. No oral lesions noted. Neck supple. Full range of motion. No adenopathy thyromegaly or neck vein distention. Cardiovascular examination reveals regular rhythm rate. S1-S2 normal. No S3 or S4. They are systolic murmurs noted consistent with her known history of aortic stenosis. Lungs reveal bilateral rhonchi and crackles, worse than yesterday. Breath sounds equal bilaterally. No wheezes appreciated. Diminished breath sounds at bilateral bases Abdomen soft with occasional bowel sounds. Extremities are intact. No cyanosis clubbing or edema. Skin is without rash or lesion. Neurologic examination is brief but nonfocal. - Labs CBC & Chem 7: 01/01/18 07:37 01/01/18 07:37 Labs: Abnormal Lab Results - Last 24 Hours (Table) 12/31/17 12/31/17 01/01/18 Range/Units 16:56 20:34 07:15 WBC (3.8-10.6) k/uL RBC (3.80-5.40) m/uL Hgb (11.4-16.0) gm/dL Hct (34.0-46.0) % Sodium (137-145) mmol/L Carbon Dioxide (22-30) mmol/L Glucose (74-99) mg/dL POC Glucose (mg/dL) 186 H 172 H 131 H (75-99) mg/dL Calcium (8.4-10.2) mg/dL 01/01/18 01/01/18 01/01/18 Range/Units 07:37 07:37 11:51 WBC 11.9 H (3.8-10.6) k/uL RBC 3.15 L (3.80-5.40) m/uL Hgb 9.5 L (11.4-16.0) gm/dL Hct 29.5 L (34.0-46.0) % Sodium 136 L (137-145) mmol/L Carbon Dioxide 32 H (22-30) mmol/L Glucose 123 H (74-99) mg/dL POC Glucose (mg/dL) 180 H (75-99) mg/dL Calcium 8.0 L (8.4-10.2) mg/dL Assessment and Plan Plan: Assessment: #1. Acute small bowel obstruction, status post exploratory laparotomy with lysis of adhesions, postop day 8 #2. Abdominal distention, patient is now passing bowel movements, no nausea or vomiting. Repeat abdominal x-ray from yesterday showed improvement of the dilation of small bowel loops, small bowel obstruction or ileus is resolving. #3. Acute hypoxemic respiratory failure secondary to fluid overload, bilateral pleural effusions, pulmonary edema. #4. Anion gap metabolic acidosis, suspect lactic acidosis related to hypoperfusion, improved #5. Leukocytosis, likely reactive to surgery #6. Hypotension related to hypovolemic shock secondary to small bowel obstruction, resolved #7. Paroxysmal atrial fibrillation, on long-term anticoagulation with Eliquis, which is currently on hold for surgery, currently in sinus rhythm #8. Hypertension, hyperlipidemia, diabetes mellitus type 2 #9. Severe aortic stenosis #10. History of coronary artery disease #11. History of right-sided CVA with left-sided residual weakness #12. Dementia #13. Osteoarthritis Plan: Continue IV Lasix, patient still has pulmonary congestion, bilateral pleural effusions, and anasarca, swelling in upper and lower extremity edema. Continue encouraging deep breathing and coughing, incentive spirometry use. Patient is tolerating oral diet, no fever or chills, continue same abiotic coverage, patient denies any distress, increase activity as tolerated, patient has severe generalized weakness, consult physical therapy. let the patient sit up in the chair. I performed a history & physical examination of the patient and discussed their management with my nurse practitioner, Sarah Gunn. I reviewed the nurse practitioner's note and agree with the documented findings and plan of care. Lung sounds are diminished, with bibasilar crackles. The findings and the impression was discussed with the patient. I attest to the documentation by the nurse practitioner. Time with Patient: Less than 30
[2018-01-01 17:09] LABS: Glucose,Whole Blood 178 mg/dL (75-99)
[2018-01-01] MEDS: LACTATED RINGERS 1,000 ML IV SCH (20:02)
[2018-01-01 20:39] LABS: Glucose,Whole Blood 164 mg/dL (75-99)
[2018-01-02] MEDS: METOCLOPRAMIDE 5 MG/ML 2 ML VIAL IVP SCH ×2 (05:06→09:47)
[2018-01-02 07:34] LABS: Glucose,Whole Blood 127 mg/dL (75-99)
[2018-01-02] MEDS: IPRATROPIUM-ALBUTEROL 3 ML NEB INHALATION SCH ×4 (07:38→19:05)
[2018-01-02] MEDS: INSULIN ASPART 100 UNIT/ML 1 ML 10 ML VIAL SQ SCH ×4 (07:46→21:32)
[2018-01-02 08:43] LABS: HCT 31.3 % (34.0-46.0); HGB 10.1 gm/dL (11.4-16.0); Hypochromasia Slight; MCH 30.5 pg (25.0-35.0); MCHC 32.4 g/dL (31.0-37.0); MCV 94.4 fL (80.0-100.0); Mean Platelet Volume 6.7; Platelet Count 345 k/uL (150-450); RBC 3.31 m/uL (3.80-5.40); RDW 14.2 % (11.5-15.5); WBC 14.2 k/uL (3.8-10.6)
[2018-01-02 08:56] LABS: Calcium 8.2 mg/dL (8.4-10.2); Phosphorus 3.5 mg/dL (2.5-4.5); Potassium 4.4 mmol/L (3.5-5.1)
[2018-01-02] MEDS: PIPERACILLIN-TAZOBACTAM 3.375 GM in DEXTROSE/WATER 1 50ML.BAG IVPB SCH ×2 (09:47→16:32)
[2018-01-02] MEDS: PANTOPRAZOLE 40 MG TABLET PO SCH (09:47)
[2018-01-02] MEDS: AMIODARONE 100 MG TAB PO SCH (09:47)
[2018-01-02] MEDS: APIXABAN 5 MG TAB PO SCH (09:47)
[2018-01-02] MEDS: FUROSEMIDE 10 MG/ML 2 ML VIAL IV SCH (09:51)
--- NOTE | 2018-01-02 11:01 | XR ---
EXAMINATION TYPE: XR chest 1V portable DATE OF EXAM: 01/02/2018 HISTORY: wet lung sounds. REFERENCE: Previous study dated 01/01/2018. FINDINGS: The heart is enlarged. There are bibasilar infiltrates. There are bilateral effusions. Thes e appear to been improved slightly. There is mild vascular congestion. IMPRESSION: 1. CARDIOMEGALY. 2. VASCULAR CONGESTION. 3. BIBASILAR INFILTRATES. 4. I CANNOT EXCLUDE SOME DEGREE OF HEART FAILURE.
[2018-01-02 11:38] LABS: Glucose,Whole Blood 160 mg/dL (75-99)
--- NOTE | 2018-01-02 15:50 | P.PN ---
Subjective Progress Note Date: 01/02/18 On 01/02/2018, the patient is being seen in follow-up on the medical surgical floor. She is doing well. She is communicating pH is extremely weak. His taken up to 3 nurses to help her sit up on a chair. Legs are quite weak. She is still being diuresed. She is a negative fluid balance. Tolerating her diet. No nausea. No vomiting. No abdominal pain. No abdominal distention. Surgical wound site is dry clean and intact. Renal function is within normal limits. She is still on Lasix 20 mg IV every 24 hours basis. She is also on IV Zosyn. She is on DuoNeb nebulized treatments around the clock. Objective - Vital Signs Vital signs: Vital Signs Temp 98.2 F 01/02/18 15:00 Pulse 84 01/02/18 15:30 Resp 16 01/02/18 15:30 BP 94/56 01/02/18 15:00 Pulse Ox 94 L 01/02/18 15:00 Intake & Output 01/01/18 01/02/18 01/02/18 18:59 06:59 18:59 Intake Total 711 Output Total 2700 600 1300 Balance -2700 -600 -589 Weight 88 kg Intake: Oral 711 Output: Urine 2700 300 1000 Stool 300 300 Other: Voiding Method Indwelling Catheter Indwelling Catheter Indwelling Catheter # Bowel Movements 1 1 ABP, PAP, CO, CI - Last Documented Arterial Blood Pressure 90/40 - Exam No acute distress, with 3 L nasal cannula, awake and alert, and no respiratory distress. The patient is awake and communicating and she's not in acute distress. HEENT examination is grossly unremarkable. Mucous membranes are moist. No oral lesions noted. Neck supple. Full range of motion. No adenopathy thyromegaly or neck vein distention. Cardiovascular examination reveals regular rhythm rate. S1-S2 normal. No S3 or S4. They are systolic murmurs noted consistent with her known history of aortic stenosis. Lungs reveal bilateral rhonchi and crackles, worse than yesterday. Breath sounds equal bilaterally. No wheezes appreciated. Abdomen is showing adequate bowel sounds. No abdominal distention. Minimal tympany. No direct tenderness. No rebound tenderness no guarding. Incision is dry clean and intact. Extremities are intact. No cyanosis clubbing or edema. Skin is without rash or lesion. Neurologic examination is brief but nonfocal. - Labs CBC & Chem 7: 01/02/18 08:21 01/02/18 08:21 Labs: Abnormal Lab Results - Last 24 Hours (Table) 01/01/18 01/01/18 01/02/18 Range/Units 17:01 20:38 07:30 WBC (3.8-10.6) k/uL RBC (3.80-5.40) m/uL Hgb (11.4-16.0) gm/dL Hct (34.0-46.0) % Sodium (137-145) mmol/L Glucose (74-99) mg/dL POC Glucose (mg/dL) 178 H 164 H 127 H (75-99) mg/dL Calcium (8.4-10.2) mg/dL 01/02/18 01/02/18 01/02/18 Range/Units 08:21 08:21 11:36 WBC 14.2 H (3.8-10.6) k/uL RBC 3.31 L (3.80-5.40) m/uL Hgb 10.1 L (11.4-16.0) gm/dL Hct 31.3 L (34.0-46.0) % Sodium 135 L (137-145) mmol/L Glucose 126 H (74-99) mg/dL POC Glucose (mg/dL) 160 H (75-99) mg/dL Calcium 8.2 L (8.4-10.2) mg/dL Assessment and Plan Plan: 1 Postop day # 8, status post exploratory laparotomy with lysis of adhesions. 2 Small bowel obstruction secondary to above 3 acute Hypoxemic respiratory failure, recovered and the patient is currently on 2 L of oxygen by nasal cannula. Chest x-ray still showing pulmonary vascular congestion/edema/cardiomegaly and the patient is still on Lasix 40 mg IV 24 hours. Fluid balance is negative around 3 L over the past 24 hours. 4 Anion gap metabolic acidosis, recovered 5 Hypotension, recovered 6 History of paroxysmal atrial fibrillation, currently sinus 7 History of hypertension 8 Hyperlipidemia by history 9 Type 2 diabetes mellitus 10 Severe aortic stenosis 11 History of CAD 12 Previous history of right-sided CVA with left-sided weakness 13 History of dementia 14 DJD Plan Continue IV Lasix. Pulmonary toileting. Long-term and to coagulation with Eliquis regarding paroxysmal atrial fibrillation. Patient is also on amiodarone. Patient on IV Zosyn and will complete a total of 7-10 day course. Physical therapy. Possible ECF placement by Thursday.
[2018-01-02] MEDS: LACTATED RINGERS 1,000 ML IV SCH (16:01)
--- NOTE | 2018-01-02 16:38 | P.PN ---
Subjective transmission supervisor hospitalist covering for over the weekend. 87-year-old female, postop day #1, status post exploratory laparotomy with lysis of adhesions and had respiratory failure requiring BiPAP therapy, pulmonary team are following the case, pt is difficlult to ambulate due to her body habitus . she is tolerating diet well, pt will benefit from [facility] rehab upon discharge . Objective - Vital Signs Vital signs: Vital Signs Temp 98.2 F 01/02/18 15:00 Pulse 99 01/02/18 15:59 Resp 16 01/02/18 15:59 BP 94/56 01/02/18 15:00 Pulse Ox 94 L 01/02/18 15:00 Intake & Output 01/01/18 01/02/18 01/02/18 18:59 06:59 18:59 Intake Total 711 Output Total 2700 600 2600 Balance -4727 -600 -7007 Weight 88 kg 88 kg Intake: Oral 711 Output: Urine 2700 300 2000 Stool 300 600 Other: Voiding Method Indwelling Catheter Indwelling Catheter Indwelling Catheter # Voids 1 # Bowel Movements 1 1 ABP, PAP, CO, CI - Last Documented Arterial Blood Pressure 90/40 - Labs CBC & Chem 7: 01/02/18 08:21 01/02/18 08:21 Labs: Abnormal Lab Results - Last 24 Hours (Table) 01/01/18 01/01/18 01/02/18 Range/Units 17:01 20:38 07:30 WBC (3.8-10.6) k/uL RBC (3.80-5.40) m/uL Hgb (11.4-16.0) gm/dL Hct (34.0-46.0) % Sodium (137-145) mmol/L Glucose (74-99) mg/dL POC Glucose (mg/dL) 178 H 164 H 127 H (75-99) mg/dL Calcium (8.4-10.2) mg/dL 01/02/18 01/02/18 01/02/18 Range/Units 08:21 08:21 11:36 WBC 14.2 H (3.8-10.6) k/uL RBC 3.31 L (3.80-5.40) m/uL Hgb 10.1 L (11.4-16.0) gm/dL Hct 31.3 L (34.0-46.0) % Sodium 135 L (137-145) mmol/L Glucose 126 H (74-99) mg/dL POC Glucose (mg/dL) 160 H (75-99) mg/dL Calcium 8.2 L (8.4-10.2) mg/dL Assessment and Plan Assessment: ASSESSMENT: Small bowel obstruction, present on admission, status post exploratory laparotomy with lysis of adhesions Nausea and vomiting, secondary to above, resolved Postoperative ileus, resolving Diabetes mellitus, type II Hyperlipidemia Hypertension Paroxysmal atrial fibrillation, on long-term anticoagulation with Eliquis History of coronary artery disease Aortic stenosis History of CVA Dementia Osteoarthritis Pulmonary edema Acute hypoxic respiratory failure, requiring bipap, resolved Anemia, suspect secondary to acute blood loss from OR in addition to hemodilution from aggressive IV fluid resuscitation History of chronic iron deficiency anemia Hypotension, secondary to hypovolemia, requiring vasopressors, resolved Hypoalbuminemia/moderate protein calorie malnutrition secondary to NPO status Plan: continue with the same treatment , continue with symptomatic treatment , resume home medication , monitor lytes and vitals including glucose , pulmonary consult is appreciated. ipt will need close follow up as outpt upon discharge . GI and DVT prophylaxis , further recommendation based upon pt clinical course and progress DVT prophylaxis eliquis GI prophylaxis protonix will resume the care of the pt on thursday
[2018-01-02 17:31] LABS: Glucose,Whole Blood 212 mg/dL (75-99)
[2018-01-02 20:33] LABS: Glucose,Whole Blood 177 mg/dL (75-99)
[2018-01-02] MEDS: APIXABAN 2.5 MG TABLET PO SCH (21:33)
[2018-01-03] MEDS: PIPERACILLIN-TAZOBACTAM 3.375 GM in DEXTROSE/WATER 1 50ML.BAG IVPB SCH ×3 (00:23→17:41)
[2018-01-03 07:04] LABS: Glucose,Whole Blood 123 mg/dL (75-99)
[2018-01-03] MEDS: IPRATROPIUM-ALBUTEROL 3 ML NEB INHALATION SCH ×4 (07:17→18:34)
[2018-01-03] MEDS: INSULIN ASPART 100 UNIT/ML 1 ML 10 ML VIAL SQ SCH ×4 (09:30→20:53)
[2018-01-03] MEDS: PANTOPRAZOLE 40 MG TABLET PO SCH (09:57)
[2018-01-03] MEDS: AMIODARONE 100 MG TAB PO SCH (09:57)
[2018-01-03] MEDS: APIXABAN 2.5 MG TABLET PO SCH ×2 (09:57→20:53)
[2018-01-03] MEDS: FUROSEMIDE 10 MG/ML 2 ML VIAL IV SCH (10:01)
--- NOTE | 2018-01-03 10:43 | P.PN ---
Subjective human capital consultant hospitalist covering for over the weekend. 87-year-old female, postop day #10, status post exploratory laparotomy with lysis of adhesions and had respiratory failure requiring BiPAP therapy, pulmonary team are following the case, pt is difficlult to ambulate due to her body habitus . she is tolerating diet well, pt will benefit from sabacute rehab upon discharge. Her WBC is 14.2 K today. Follow-up WBC. BMP was unremarkable Objective - Vital Signs Vital signs: Vital Signs Temp 97.7 F 01/03/18 06:03 Pulse 84 01/03/18 07:29 Resp 17 01/03/18 06:03 BP 126/58 01/03/18 06:03 Pulse Ox 94 L 01/03/18 06:03 Intake & Output 01/02/18 01/03/18 01/03/18 18:59 06:59 18:59 Intake Total 948 Output Total 2600 650 Balance -1652 -650 Weight 88 kg 87.9 kg Intake: Oral 948 Output: Urine 2000 650 Stool 600 Other: Voiding Method Indwelling Catheter Indwelling Catheter # Voids 1 # Bowel Movements 1 ABP, PAP, CO, CI - Last Documented Arterial Blood Pressure 90/40 - Exam GENERAL: The patient is alert and oriented x3, not in any acute distress. Looks lethargic HEENT: Pupils are round and equally reacting to light. EOMI. No scleral icterus. No conjunctival pallor. Normocephalic, atraumatic. No pharyngeal erythema. No thyromegaly. CARDIOVASCULAR: S1 and S2 present. No murmurs, rubs, or gallops. PULMONARY: Chest is clear to auscultation, no wheezing or crackles. ABDOMEN: Soft, nontender, nondistended, normoactive bowel sounds. No palpable organomegaly. MUSCULOSKELETAL: No joint swelling or deformity. EXTREMITIES: No cyanosis, clubbing, or pedal edema. NEUROLOGICAL: Gross neurological examination did not reveal any focal deficits. SKIN: No rashes. - Labs CBC & Chem 7: 01/02/18 08:21 01/02/18 08:21 Labs: Abnormal Lab Results - Last 24 Hours (Table) 01/02/18 01/02/18 01/02/18 Range/Units 11:36 17:29 20:32 POC Glucose (mg/dL) 160 H 212 H 177 H (75-99) mg/dL 01/03/18 Range/Units 07:01 POC Glucose (mg/dL) 123 H (75-99) mg/dL Assessment and Plan Assessment: ASSESSMENT: Small bowel obstruction, present on admission, status post exploratory laparotomy with lysis of adhesions Nausea and vomiting, secondary to above, resolved Postoperative ileus, resolving Diabetes mellitus, type II Hyperlipidemia Hypertension Paroxysmal atrial fibrillation, on long-term anticoagulation with Eliquis History of coronary artery disease Aortic stenosis History of CVA Dementia Osteoarthritis Pulmonary edema Acute hypoxic respiratory failure, requiring bipap, resolved Anemia, suspect secondary to acute blood loss from OR in addition to hemodilution from aggressive IV fluid resuscitation History of chronic iron deficiency anemia Hypotension, secondary to hypovolemia, requiring vasopressors, resolved Hypoalbuminemia/moderate protein calorie malnutrition secondary to NPO status Plan: continue with the same treatment , continue with symptomatic treatment , resume home medication , monitor lytes and vitals including glucose , pulmonary consult is appreciated. ipt will need close follow up as outpt upon discharge . GI and DVT prophylaxis , further recommendation based upon pt clinical course and progress DVT prophylaxis eliquis GI prophylaxis protonix will resume the care of the pt on thursday
[2018-01-03 11:27] LABS: Glucose,Whole Blood 206 mg/dL (75-99)
--- NOTE | 2018-01-03 15:21 | P.PN ---
Subjective Progress Note Date: 01/03/18 On 01/03/2018, the patient continues to be profoundly weak. She is spending most of her time in bed. Raises are being made to send this patient tomorrow with [facility] for further rehabilitation. Her lactic specifically remain weak. No nausea. No vomiting. No abdominal pain. Surgical wound site is dry clean and intact. Renal function is also stable. The patient is receiving daily Lasix dose of 20 mg IV push every 24 hours. She continues to be on IV Zosyn. No other significant events overnight. No confusion. No change in mental status. Objective - Vital Signs Vital signs: Vital Signs Temp 97.7 F 01/03/18 06:03 Pulse 76 01/03/18 11:17 Resp 17 01/03/18 06:03 BP 126/58 01/03/18 06:03 Pulse Ox 94 L 01/03/18 06:03 Intake & Output 01/02/18 01/03/18 01/03/18 18:59 06:59 18:59 Intake Total 948 210 Output Total 2600 650 Balance -1652 -650 210 Weight 88 kg 87.9 kg Intake: IV 210 Lactated Ringers 1,000 ml 160 @ 20 mls/hr IV .Q24H [facility] Rx#:[id number] Piperacillin-Tazobactam 3 50 .375 gm In Dextrose/Water 1 50ml.bag @ 12.5 mls/hr IVPB Q8HR EP[facility] Rx#: [id number] Oral 948 Output: Urine 2000 650 Stool 600 Other: Voiding Method Indwelling Catheter Indwelling Catheter # Voids 1 # Bowel Movements 1 ABP, PAP, CO, CI - Last Documented Arterial Blood Pressure 90/40 - Exam No acute distress, with 3 L nasal cannula, awake and alert, and no respiratory distress. The patient is awake and communicating and she's not in acute distress. HEENT examination is grossly unremarkable. Mucous membranes are moist. No oral lesions noted. Neck supple. Full range of motion. No adenopathy thyromegaly or neck vein distention. Cardiovascular examination reveals regular rhythm rate. S1-S2 normal. No S3 or S4. They are systolic murmurs noted consistent with her known history of aortic stenosis. Lungs reveal bilateral rhonchi and crackles, worse than yesterday. Breath sounds equal bilaterally. No wheezes appreciated. Abdomen is showing adequate bowel sounds. No abdominal distention. Minimal tympany. No direct tenderness. No rebound tenderness no guarding. Incision is dry clean and intact. Extremities are intact. No cyanosis clubbing or edema. Skin is without rash or lesion. Neurologic examination is brief but nonfocal. - Labs CBC & Chem 7: 01/02/18 08:21 01/02/18 08:21 Labs: Abnormal Lab Results - Last 24 Hours (Table) 01/02/18 01/02/18 01/03/18 Range/Units 17:29 20:32 07:01 POC Glucose (mg/dL) 212 H 177 H 123 H (75-99) mg/dL 01/03/18 Range/Units 11:24 POC Glucose (mg/dL) 206 H (75-99) mg/dL Assessment and Plan Plan: 1 Postop day # 9, status post exploratory laparotomy with lysis of adhesions. 2 Small bowel obstruction secondary to above, recovered post exploratory laparoscopy and lysis of adhesions. 3 acute Hypoxemic respiratory failure, recovered and the patient is currently on 2 L of oxygen by nasal cannula. Chest x-ray still showing pulmonary vascular congestion/edema/cardiomegaly and the patient is still on Lasix 4 Anion gap metabolic acidosis, recovered 5 Hypotension, recovered 6 History of paroxysmal atrial fibrillation, currently sinus 7 History of hypertension 8 Hyperlipidemia by history 9 Type 2 diabetes mellitus 10 Severe aortic stenosis 11 History of CAD 12 Previous history of right-sided CVA with left-sided weakness 13 History of dementia 14 DJD Plan Patient is doing well. No complaints. Physical therapy. ECF transfer. No active pulmonary or critical care issue. We'll sign of the cath. Would recommend completing a total of 7-10 day course of IV Zosyn. Also recommend switching this patient oral Lasix at time of discharge.
[2018-01-03 16:36] LABS: Glucose,Whole Blood 188 mg/dL (75-99)
[2018-01-03] MEDS: LACTATED RINGERS 1,000 ML IV SCH (17:42)
[2018-01-03 21:05] LABS: Glucose,Whole Blood 182 mg/dL (75-99)
[2018-01-04] MEDS: PIPERACILLIN-TAZOBACTAM 3.375 GM in DEXTROSE/WATER 1 50ML.BAG IVPB SCH ×2 (00:14→08:02)
[2018-01-04 07:40] LABS: Glucose,Whole Blood 118 mg/dL (75-99)
[2018-01-04] MEDS: IPRATROPIUM-ALBUTEROL 3 ML NEB INHALATION SCH ×2 (07:42→11:51)
[2018-01-04 07:55] VITALS: BP 138/67; RESP 16; TEMP 98.6
[2018-01-04] MEDS: INSULIN ASPART 100 UNIT/ML 1 ML 10 ML VIAL SQ SCH ×2 (07:56→12:45)
[2018-01-04] MEDS: APIXABAN 2.5 MG TABLET PO SCH (07:57)
[2018-01-04] MEDS: AMIODARONE 100 MG TAB PO SCH (07:57)
[2018-01-04] MEDS: PANTOPRAZOLE 40 MG TABLET PO SCH (07:57)
[2018-01-04] MEDS: FUROSEMIDE 10 MG/ML 2 ML VIAL IV SCH (08:02)
[2018-01-04 09:13] LABS: Basophils % (A) 0 %; Eosinophils # (A) 0.1 k/uL (0-0.7); Eosinophils % (A) 1 %; HCT 30.6 % (34.0-46.0); HGB 10.2 gm/dL (11.4-16.0); Hypochromasia Slight; Lymphocytes # (A) 1.2 k/uL (1.0-4.8); Lymphocytes % (A) 13 %; MCH 31.4 pg (25.0-35.0); MCHC 33.3 g/dL (31.0-37.0); MCV 94.5 fL (80.0-100.0); Mean Platelet Volume 6.8; Monocytes # (A) 0.5 k/uL (0-1.0); Monocytes % (A) 5 %; Neutrophils # (A) 7.7 k/uL (1.3-7.7); Neutrophils % (A) 80 %; Platelet Count 391 k/uL (150-450); RBC 3.24 m/uL (3.80-5.40); RDW 14.3 % (11.5-15.5); WBC 9.7 k/uL (3.8-10.6)
--- NOTE | 2018-01-04 10:36 | P.DS ---
Providers Date of admission: 12/19/17 22:25 Expected date of discharge: 01/04/18 Attending physician: Gregorio Rivera Consults: 12/21/17 09:00 Consult Physician Routine Consulting Provider: Clifford Rivera Consult Reason/Comments: small bowel obstruction Do you want consulting provider notified?: Yes 12/24/17 12:37 Consult Physician Routine Consulting Provider: Tariq Lan Consult Reason/Comments: ICU management Do you want consulting provider notified?: Yes 12/27/17 08:46 Consult Physician Routine Consulting Provider: Rosales Bocanegra Consult Reason/Comments: possible LE DVT, arterial insufficiency Bilat LE Do you want consulting provider notified?: Yes Primary care physician: Gregorio Rivera [place] [facility] Course: 87-year-old female who originally presented to the emergency room due to nausea and vomiting. Computed tomography scan revealed developing distal small bowel obstruction with transition point identified in the upper pelvis just right of the midline presumed product of adhesions. Chest x-ray was negative for an acute process. The patient had an NG tube placed initially which the patient pulled out. The patient was trialed without NG tube in place but her abdominal distention worsened. An NG tube was reinserted at that time. The patient underwent a computed tomography scan on 12/21/2017 which revealed worsening mechanical small bowel obstruction. The patient underwent an exploratory laparotomy with lysis of adhesions on 12/24/[address] Rivera. Postoperatively she was hypoxic and hypotensive. She was transferred to the intensive care unit. She was placed on a BiPAP for a short period of time. She was given aggressive IV fluid resuscitation. She was also placed on vasopressors, which were weaned off within a short period of time. The patient has been tolerating oral diet postoperatively. She has been passing flatus and having bowel movements. The patient did develop some pulmonary edema postoperatively due to her aggressive IV fluid resuscitation requirements. She was started on IV Lasix. The patient has been getting up to the chair but requiring a lot of assistance. She remains significantly debilitated and weak. She is stable for discharge to subacute rehab at this time. The patient's indwelling urinary catheter will be left intact upon discharge until the patient is more ambulatory. The patient's urinary catheter must be removed by January 11, 2018 at the latest. She does not require IV antibiotics at the time of discharge. Her midline catheter will be discontinued before discharge. Her IV Lasix has been transitioned to oral at the time of discharge. She is to follow up with Dr. Rivera 1 week after discharge from subacute rehab and also all consulting providers. DISCHARGE DIAGNOSIS: Small bowel obstruction, present on admission, status post exploratory laparotomy with lysis of adhesions Nausea and vomiting, secondary to above, resolved Postoperative ileus, resolved Diabetes mellitus, type II Hyperlipidemia Hypertension Paroxysmal atrial fibrillation, on long-term anticoagulation with Eliquis History of coronary artery disease Aortic stenosis History of CVA Dementia Osteoarthritis Pulmonary edema Acute hypoxic respiratory failure, requiring bipap, resolved Anemia, suspect secondary to acute blood loss from OR in addition to hemodilution from aggressive IV fluid resuscitation History of chronic iron deficiency anemia Hypotension, secondary to hypovolemia, requiring vasopressors, resolved Hypoalbuminemia/moderate protein calorie malnutrition secondary to NPO status Nurse practitioner note has been reviewed by physician. Signing provider agrees with the documented findings, assessment, and plan of care. Patient Condition at Discharge: Stable Plan - Discharge Summary Discharge Rx Participant: Yes New Discharge Prescriptions: New Furosemide [Lasix] 40 mg PO DAILY #30 tab Ipratropium-Albuterol Nebulize [Duoneb 0.5 mg-3 mg/3 ml Soln] 3 ml INHALATION RT-QID ampul.neb Ipratropium-Albuterol Nebulize [Duoneb 0.5 mg-3 mg/3 ml Soln] 3 ml INHALATION RT-Q2H PRN ampul.neb PRN Reason: Shortness Of Breath Or Wheezing Continue Multivitamins, Thera [Multivitamin (formulary)] 1 tab PO DAILY Docusate [Colace] 100 mg PO Q48H Cholecalciferol [Vitamin D3] 1,000 unit PO DAILY Apixaban [Eliquis] 2.5 mg PO BID #60 tab metFORMIN HCL [Metformin HCl] 500 mg PO AC-BID #60 tablet Atorvastatin [Lipitor] 80 mg PO HS Amiodarone [Cordarone] 100 mg PO DAILY #30 tab L.acidoph,Paracasei, B.lactis [Probiotic] 1 cap PO Q48H Cla 1 tab PO DAILY Pantoprazole Sodium [Protonix] 40 mg PO DAILY@1200 Tolterodine Tartrate [Detrol LA] 4 mg PO DAILY Ferrous Sulfate [Iron (65 MG Elemental)] 325 mg PO AC-BID Discharge Medication List Cholecalciferol [Vitamin D3] 1,000 unit PO DAILY 07/20/16 [History] Docusate [Colace] 100 mg PO Q48H 07/20/16 [History] Multivitamins, Thera [Multivitamin (formulary)] 1 tab PO DAILY 07/20/16 [History ] Apixaban [Eliquis] 2.5 mg PO BID #60 tab 08/18/16 [Rx] metFORMIN HCL [Metformin HCl] 500 mg PO AC-BID #60 tablet 08/18/16 [Rx] Atorvastatin [Lipitor] 80 mg PO HS 11/19/16 [History] Amiodarone [Cordarone] 100 mg PO DAILY #30 tab 12/31/16 [Rx] Cla 1 tab PO DAILY 02/22/17 [History] L.acidoph,Paracasei, B.lactis [Probiotic] 1 cap PO Q48H 02/22/17 [History] Ferrous Sulfate [Iron (65 MG Elemental)] 325 mg PO AC-BID 12/19/17 [History] Pantoprazole Sodium [Protonix] 40 mg PO DAILY@1200 12/19/17 [History] Tolterodine Tartrate [Detrol LA] 4 mg PO DAILY 12/19/17 [History] Furosemide [Lasix] 40 mg PO DAILY #30 tab 01/04/18 [Rx] Ipratropium-Albuterol Nebulize [Duoneb 0.5 mg-3 mg/3 ml Soln] 3 ml INHALATION RT -Q2H PRN ampul.neb 01/04/18 [Rx] Ipratropium-Albuterol Nebulize [Duoneb 0.5 mg-3 mg/3 ml Soln] 3 ml INHALATION RT -QID ampul.neb 01/04/18 [Rx] Follow up Appointment(s)/Referral(s): Gregorio Rivera DO [Primary Care Provider] - 1 Week (1 week after DC from [facility]) Becca Edmonds MD [STAFF PHYSICIAN] - 2 Weeks Clifford Rivera MD [STAFF PHYSICIAN] - 2 Weeks Activity/Diet/Wound Care/Special Instructions: Activity as tolerated Dysphagia level 2 diet: ground Consistent carb diet Keep urinary catheter until patient is more ambulatory. Discontinue by January 11, 2018 AT THE LASTEST Discharge Disposition: TRANSFER TO SNF/ECF
[2018-01-04 11:58] LABS: Glucose,Whole Blood 166 mg/dL (75-99)
[2018-01-04 12:06] VITALS: PULSE 80
--- NOTE | 2018-01-06 04:41 | CDI ---
Last Revision, February 2017 Documentation Clarification Form Date: 01/06/2018 4:22:00 AM From: Emilie Hoover Phone: If you have a question about this query, please contact Elisa Scott Non Clinical Advisor at [phone] between 8am and 5pm. Admit Date: 12/19/2017 10:25:00 PM Patient Name: Allison Flores Visit Number: [id number] Discharge Date: 01/04/18 ATTENTION: The Clinical Documentation Specialists (CDI) and [facility] Coding Staff appreciate your assistance in clarifying documentation. Please respond to the clarification below the line at the bottom and electronically sign. The CDI & [facility] Coding staff will review the response and follow-up if needed. Please note: Queries are made part of the Legal Health Record. If you have any questions, please contact the author of this message via ITS. Gregorio Ricketts , DO Postoperative ileus is documented in the Discharge Summary as resolved . Post-Operative Diagnosis: postoperative ileus Procedure performed: Open lysis of adhesions Clinical Indicators: Abdominal distention, absence of bowel sounds Treatment: NPO Reglan 2 In order to accurately reflect this patients severity of illness, please clarify if postoperative ileus is a complication of the surgical procedure? Yes No Other, please specify Unable to determine MTDD
== END 2018-01-04 13:40 | DRG 335 ==
LOC: EC 18:00 → 3SUR 22:25 → 4SSUR 12-20 08:15 → 2SICU 12-24 13:32 → 4MS4W 12-31 11:04
PROVIDERS: ADMIT Family Medicine; ATTEND Family Medicine
PROC: 5A09357 Assistance with Respiratory Ventilation, Less than 24 Consecutive Hours, Continuous Positive Airway Pressure (ICD-10-PCS; 2017-12-24)
PROC: 0DN80ZZ Release Small Intestine, Open Approach (ICD-10-PCS; principal; 2017-12-24 11:40)
DX: K56.51 Intestinal adhesions [bands], with partial obstruction (principal); R57.1 Hypovolemic shock; J96.01 Acute respiratory failure with hypoxia; E44.0 Moderate protein-calorie malnutrition; E87.2 Acidosis; I69.354 Hemiplegia and hemiparesis following cerebral infarction affecting left non-dominant side; J98.11 Atelectasis; D62 Acute posthemorrhagic anemia; D72.829 Elevated white blood cell count, unspecified; E11.9 Type 2 diabetes mellitus without complications; E78.5 Hyperlipidemia, unspecified; F03.90 Unspecified dementia, unspecified severity, without behavioral disturbance, psychotic disturbance, mood disturbance, and anxiety; H91.90 Unspecified hearing loss, unspecified ear; I50.9 Heart failure, unspecified; I11.0 Hypertensive heart disease with heart failure; I25.10 Atherosclerotic heart disease of native coronary artery without angina pectoris; I25.2 Old myocardial infarction; I08.0 Rheumatic disorders of both mitral and aortic valves; I48.0 Paroxysmal atrial fibrillation; M19.90 Unspecified osteoarthritis, unspecified site; Z66 Do not resuscitate; I95.9 Hypotension, unspecified; Z79.01 Long term (current) use of anticoagulants; Z79.84 Long term (current) use of oral hypoglycemic drugs; Z79.899 Other long term (current) drug therapy; Z83.3 Family history of diabetes mellitus; Z91.040 Latex allergy status; Z90.710 Acquired absence of both cervix and uterus; D50.9 Iron deficiency anemia, unspecified; Z88.2 Allergy status to sulfonamides; Z87.19 Personal history of other diseases of the digestive system
CPT/HCPCS: 36415; 36569; 71045; 74018; 74177; 76937; 80048; 80053; 81003; 82150; 82271; 82272; 82550; 82553; 82805; 83036; 83605; 83690; 83735; 84100; 84132; 84484; 85025; 85027; 85610; 85730; 86850; 86900; 86901; 87324; 93005; 93970; 94640; 94660; 94760; 96360; 96361; 96374; 96375; 99285

== ENCOUNTER 2018-05-02 16:07 | Emergency (ER) | payer MEDICARE, BC ==
[2018-05-02 16:18] VITALS: BP 126/60; PULSE 73; RESP 18; TEMP 98.4
--- NOTE | 2018-05-02 16:53 | ED ---
Fall HPI - General Chief Complaint: Fall Stated Complaint: FALL Time Seen by Provider: 05/02/18 16:07 Source: patient, family, RN notes reviewed, old records reviewed Mode of arrival: EMS - History of Present Illness Initial Comments: This is an 87-year-old female history of multiple medical problems including atrial fibrillation CVA who is on blood thinner who apparently was trying to go the bathroom just prior to arrival when she went to sit down and apparently missed the toilet. She landed hitting the left side of her posterior scalp. No reports of loss of consciousness she denies any head neck or back pain no blurry vision loss of function to her upper or lower extremities. She was brought in by EMS with a cervical collar. She was brought in priority 2. Dr. Maguire had already discussed the case with Dr. Back , the team was assembled. There are no other modifying factors. Patient no complaint of any other problems she had no palpitations no dizziness MD Complaint: fall - Related Data Home Medications Medication Instructions Recorded Confirmed Cholecalciferol [Vitamin D3] 1,000 unit PO DAILY 07/20/16 05/02/18 Docusate [Colace] 100 mg PO Q48H 07/20/16 05/02/18 Multivitamins, Thera [Multivitamin 1 tab PO DAILY 07/20/16 05/02/18 (formulary)] Atorvastatin [Lipitor] 80 mg PO HS 11/19/16 05/02/18 Ferrous Sulfate [Iron (65 MG 325 mg PO AC-BID 12/19/17 05/02/18 Elemental)] Pantoprazole Sodium [Protonix] 40 mg PO DAILY 12/19/17 05/02/18 Tolterodine Tartrate [Detrol LA] 4 mg PO HS 12/19/17 05/02/18 Furosemide [Lasix] 40 mg PO DAILY 05/02/18 05/02/18 Furosemide [Lasix] 40 mg PO MOWEFR@1400 05/02/18 05/02/18 Glucerna Shake 1 can PO HS 05/02/18 05/02/18 Ipratropium-Albuterol Nebulize 3 ml INHALATION RT-TID 05/02/18 05/02/18 [Duoneb 0.5 mg-3 mg/3 ml Soln] Lactobacillus Acidophilus 1 tab PO Q48H 05/02/18 05/02/18 [Acidophilus] Melatonin 5 mg PO HS PRN 05/02/18 05/02/18 Mylanta 30 ml PO Q4H PRN 05/02/18 05/02/18 guaiFENesin SYRUP 100MG/5ML 200 mg PO Q4H PRN 05/02/18 05/02/18 [Robitussin] guaiFENesin [Mucinex] 600 mg PO Q12HR PRN 05/02/18 05/02/18 metFORMIN HCL [Metformin HCl] 500 mg PO BID@0800,1700 05/02/18 05/02/18 Previous Rx's Medication Instructions Recorded Apixaban [Eliquis] 2.5 mg PO BID #60 tab 08/18/16 Amiodarone [Cordarone] 100 mg PO DAILY #30 tab 12/31/16 Ipratropium-Albuterol Nebulize 3 ml INHALATION RT-Q2H PRN 01/04/18 [Duoneb 0.5 mg-3 mg/3 ml Soln] ampul.neb Allergies Allergy/AdvReac Type Severity Reaction Status Date / Time latex Allergy Rash/Hives Verified 05/02/18 16:18 Sulfa (Sulfonamide AdvReac Nausea & Verified 05/02/18 16:18 Antibiotics) Vomiting Review of Systems ROS Statement: Those systems with pertinent positive or pertinent negative responses have been documented in the HPI. ROS Other: All systems not noted in ROS Statement are negative. Past Medical History Past Medical History: Atrial Fibrillation, Coronary Artery Disease (CAD), CVA/ TIA, Dementia, Diabetes Mellitus, GI Bleed, Hyperlipidemia, Hypertension, Myocardial Infarction ([place]), Osteoarthritis (OA) Additional Past Medical History / Comment(s): Prolapsed mitral valve, "leaky" aortic valve, left sided weakness from stroke in July 2016, [facility] Last Myocardial Infarction Date:: 2006? History of Any Multi-Drug Resistant Organisms: None Reported Past Surgical History: Hysterectomy Additional Past Surgical History / Comment(s): angioplasty Past Anesthesia/Blood Transfusion Reactions: No Reported Reaction Past Psychological History: No Psychological Hx Reported Smoking Status: Never smoker Past Alcohol Use History: None Reported Past Drug Use History: None Reported - Past Family History Mother Additional Family Medical History / Comment(s): Brain An. Father Family Medical History: CVA/TIA Sister(s) Family Medical History: Diabetes Mellitus Additional Family Medical History / Comment(s): Cardiac issues Brother(s) Family Medical History: Diabetes Mellitus Additional Family Medical History / Comment(s): cardiac issues General Exam - General Exam Comments Initial Comments: This a well-developed well-nourished awake alert oriented 3 female she does demonstrate a [place] Coma Scale of 15 Limitations: physical limitation General appearance: alert, in no apparent distress Head exam: Present: atraumatic, normocephalic, normal inspection Eye exam: Present: normal appearance, EOMI. Absent: PERRL (Pupils are unequal demonstrating anisocoria. This is been going on with the left pupil larger than the right for some period time per the patient and family. This is secondary to an injection.), scleral icterus, conjunctival injection, periorbital swelling ENT exam: Present: normal exam, mucous membranes moist Neck exam: Present: normal inspection, other (Cervical collar in place no tenderness palpation over the anterior posterior neck no cervical spinous process tenderness no paraspinous muscle tenderness). Absent: tenderness, meningismus, lymphadenopathy Respiratory exam: Present: normal lung sounds bilaterally. Absent: respiratory distress, wheezes, rales, rhonchi, stridor Cardiovascular Exam: Present: regular rate, normal rhythm, normal heart sounds. Absent: systolic murmur, diastolic murmur, rubs, gallop, clicks GI/Abdominal exam: Present: soft, normal bowel sounds. Absent: distended, tenderness, guarding, rebound, rigid Extremities exam: Present: normal inspection, full ROM, normal capillary refill. Absent: tenderness, pedal edema, joint swelling, calf tenderness Back exam: Present: normal inspection Neurological exam: Present: alert, oriented X3, CN II-XII intact Psychiatric exam: Present: normal affect, normal mood Skin exam: Present: warm, dry, intact, normal color. Absent: rash Course Vital Signs 05/02/18 16:10 Temperature 98.4 F Pulse Rate 73 Respiratory 18 Rate Blood Pressure 126/60 O2 Sat by Pulse 98 Oximetry - Reevaluation(s) Reevaluation #1: 05/02/18 17:22 The patient remains awake alert oriented 3 and a [place] Coma Scale of 15. I did remove the cervical collar after reviewing the imaging. She demonstrates no adverse reactions or findings. Medical Decision Making - Medical Decision Making Reevaluation patient reveals he is awake alert oriented 3 [place] Coma Scale of 15 no other lanes. She will be discharged back to her retirement. I did discuss this with the patient and her daughters. - Lab Data Lab Results 05/02/18 Range/Units 16:50 POC Glucose (mg/dL) 160 H (75-99) mg/dL POC Glu Environmental Studies Faculty Member ID Mena Cormier - EKG Data -: EKG Interpreted by Me EKG shows normal: sinus rhythm (Sinus rhythm 74 heart rate MT interval 206 QRS duration 96 QT since QTC 412/457 evidence of old inferior and anterior changes. No acute abnormality seen) - Radiology Data Radiology results: report reviewed (I did review the imaging and report no acute findings are seen degenerative changes are noted on the C-spine.), image reviewed Disposition Clinical Impression: Fall, Scalp contusion Disposition: HOME SELF-CARE Condition: Good Instructions (If sedation given, give patient instructions): Fall Prevention for Older Adults (ED), Scalp Contusion in Adults (ED) Is patient prescribed a controlled substance at d/c from ED?: No Referrals: Kitty Cardenas MD [Primary Care Provider] - 1-2 days
[2018-05-02 17:02] LABS: Glucose,Whole Blood 160 mg/dL (75-99)
--- NOTE | 2018-05-02 17:18 | CT ---
EXAMINATION TYPE: CT brain glenna wo con DATE OF EXAM: 05/02/2018 COMPARISON: 07/11/2017 HISTORY: Fall today. Head and neck pain CT DLP: 1379.5 mGycm, Automated exposure control for dose reduction was used. CONTRAST: Patient injected with 0 mL of Isovue 300. CT of the brain is performed utilizing 3 mm thick sections through the posterior fossa and 3 mm thick sections through the remaining calvarium. Study is performed within 24 hours of arrival to the hospital. No abnormal hyperdensity is present to suggest an acute intracranial hemorrhage. No mass lesion is evident. No acute infarcts are evident. Mild periventricular white matter hypodensity is present, likely on t he basis of chronic white matter ischemic changes. Findings are similar to 07/11/2017. Ventricles and sulci are mildly prominent for the patient age. Paranasal sinuses and mastoid air cells within the [id number] are clear. IMPRESSIONS: 1. Atrophy with periventricular white matter ischemic type changes. CT cervical spine. COMPARISON: None CT of the cervical spine is performed in the axial plane at 2 mm thick sections. Reconstructed image s in the coronal, and sagittal plane are reviewed on the computer. No acute fractures are evident. Vertebral body alignment is straightened There is loss of disc height C5-6 C6-7. Diffuse narrowing of the remaining disc heights is present. S mall amount of posterior vertebral body spurring is present C5-6 C6-7. No spinal canal stenosis is pr esent. Right foraminal narrowing due to facet hypertrophy and uncovertebral joint hypertrophy is pres ent at C3-4. Uncovertebral joint hypertrophy has right foraminal narrowing. Bilateral foraminal narro wing is present C5-6 due to uncovertebral joint hypertrophy. Uncovertebral joint hypertrophy and endp late spurring has moderate bilateral foraminal narrowing C6-7. Vertebral body heights are preserved. IMPRESSIONS: 1. Degenerative disc changes C5-6 C6-7 with milder degenerative disc changes within the remaining cer vical spine. 2. Foraminal stenosis due to uncovertebral joint hypertrophy and some facet hypertrophy. 3. No acute osseous abnormality.
== END 2018-05-02 17:30 | disposition home or self-care (01) ==
LOC: EC 16:07
DX: S00.03XA Contusion of scalp, initial encounter (principal); H57.02 Anisocoria; I48.91 Unspecified atrial fibrillation; E78.5 Hyperlipidemia, unspecified; I10 Essential (primary) hypertension; I25.10 Atherosclerotic heart disease of native coronary artery without angina pectoris; I25.2 Old myocardial infarction; H91.90 Unspecified hearing loss, unspecified ear; F03.90 Unspecified dementia, unspecified severity, without behavioral disturbance, psychotic disturbance, mood disturbance, and anxiety; Z88.2 Allergy status to sulfonamides; Z91.040 Latex allergy status; Z79.01 Long term (current) use of anticoagulants; Z79.84 Long term (current) use of oral hypoglycemic drugs; Z79.899 Other long term (current) drug therapy; Z86.73 Personal history of transient ischemic attack (TIA), and cerebral infarction without residual deficits; Z87.19 Personal history of other diseases of the digestive system; Z98.890 Other specified postprocedural states; W01.10XA Fall on same level from slipping, tripping and stumbling with subsequent striking against unspecified object, initial encounter; Y93.89 Activity, other specified; Y92.009 Unspecified place in unspecified non-institutional (private) residence as the place of occurrence of the external cause
CPT/HCPCS: 36415; 70450; 72125; 93005; 99284

== ENCOUNTER 2018-05-07 05:45 | Inpatient (IN) | payer MEDICARE, BC ==
[2018-05-07] MEDS ORDERED: SODIUM CHLORIDE 0.9% 1,000 ML IV STA ×3 (05:46→06:46)
[2018-05-07] MEDS ORDERED: DILTIAZEM DRIP BOLUS FROM BAG 1 MG SOLN IV ONE (05:47)
[2018-05-07 05:57] LABS: Glucose,Whole Blood 211 mg/dL (75-99)
--- NOTE | 2018-05-07 05:59 | ED ---
SOB HPI - General Stated Complaint: High Heart Rate Time Seen by Provider: 05/07/18 05:46 Source: patient, EMS Mode of arrival: EMS Limitations: no limitations - History of Present Illness Initial Comments: This is an 87-year-old female the ER for evaluation. Patient sent in from [address] [place] [address] for evaluation regarding elevated heart rate, patient is in A. fib with RVR, history of A. fib. Patient's brought in by EMS EMS provides history patient's poor historian history obtained from patient's chart MD Complaint: shortness of breath, anxiety -: unknown Radiation: other (No pain) Severity: moderate Severity scale (1-10): 6 Consistency: constant Improves With: medication Worsens With: exertion, movement Known History Of: congestive heart failure Context: recent URI Associated Symptoms: palpitations Treatments Prior to Arrival: none - Related Data Home Medications Medication Instructions Recorded Confirmed Cholecalciferol [Vitamin D3] 1,000 unit PO DAILY 07/20/16 05/07/18 Docusate [Colace] 100 mg PO Q48H 07/20/16 05/07/18 Multivitamins, Thera [Multivitamin 1 tab PO DAILY 07/20/16 05/07/18 (formulary)] Atorvastatin [Lipitor] 80 mg PO HS 11/19/16 05/07/18 Ferrous Sulfate [Iron (65 MG 325 mg PO AC-BID@0900,1700 12/19/17 05/07/18 Elemental)] Pantoprazole Sodium [Protonix] 40 mg PO DAILY 12/19/17 05/07/18 Tolterodine Tartrate [Detrol LA] 4 mg PO HS 12/19/17 05/07/18 Furosemide [Lasix] 40 mg PO DAILY@0600 05/02/18 05/07/18 Furosemide [Lasix] 40 mg PO MOWEFR@1400 05/02/18 05/07/18 Glucerna Shake 1 can PO DAILY@199905/02/18 05/07/18 Ipratropium-Albuterol Nebulize 3 ml INHALATION RT-TID 05/02/18 05/07/18 [Duoneb 0.5 mg-3 mg/3 ml Soln] Lactobacillus Acidophilus 1 tab PO Q48H 05/02/18 05/07/18 [Acidophilus] Melatonin 5 mg PO HS PRN 05/02/18 05/07/18 Mylanta 30 ml PO Q4H PRN 05/02/18 05/07/18 metFORMIN HCL [Metformin HCl] 500 mg PO BID@0800,1700 05/02/18 05/07/18 House Sooth & Cool Powder 1 applic TOPICAL Q12H 05/07/18 05/07/18 Pantoprazole [Protonix] 40 mg PO DAILY 05/07/18 05/07/18 guaiFENesin [Mucinex] 600 mg PO BID PRN 05/07/18 05/07/18 Previous Rx's Medication Instructions Recorded Apixaban [Eliquis] 2.5 mg PO BID #60 tab 08/18/16 Amiodarone [Cordarone] 100 mg PO DAILY #30 tab 12/31/16 Ipratropium-Albuterol Nebulize 3 ml INHALATION RT-Q2H PRN 01/04/18 [Duoneb 0.5 mg-3 mg/3 ml Soln] ampul.neb Allergies Allergy/AdvReac Type Severity Reaction Status Date / Time Influenza Virus Vaccines Allergy Unknown Verified 05/07/18 09:55 latex Allergy Rash/Hives Verified 05/07/18 07:09 Sulfa (Sulfonamide AdvReac Nausea & Verified 05/07/18 07:09 Antibiotics) Vomiting Review of Systems ROS Statement: Those systems with pertinent positive or pertinent negative responses have been documented in the HPI. ROS Other: All systems not noted in ROS Statement are negative. Past Medical History Past Medical History: Atrial Fibrillation, Coronary Artery Disease (CAD), CVA/ TIA, Dementia, Diabetes Mellitus, GI Bleed, Hyperlipidemia, Hypertension, Myocardial Infarction ([place]), Osteoarthritis (OA) Additional Past Medical History / Comment(s): Prolapsed mitral valve, "leaky" aortic valve, left sided weakness from stroke in July 2016, [facility] Last Myocardial Infarction Date:: 2006? History of Any Multi-Drug Resistant Organisms: None Reported Past Surgical History: Hysterectomy Additional Past Surgical History / Comment(s): angioplasty Past Anesthesia/Blood Transfusion Reactions: No Reported Reaction Past Psychological History: No Psychological Hx Reported Smoking Status: Never smoker Past Alcohol Use History: None Reported Past Drug Use History: None Reported - Past Family History Mother Additional Family Medical History / Comment(s): Brain An. Father Family Medical History: CVA/TIA Sister(s) Family Medical History: Diabetes Mellitus Additional Family Medical History / Comment(s): Cardiac issues Brother(s) Family Medical History: Diabetes Mellitus Additional Family Medical History / Comment(s): cardiac issues General Exam Limitations: no limitations General appearance: alert, in no apparent distress Head exam: Present: atraumatic, normocephalic, normal inspection Eye exam: Present: normal appearance, PERRL, EOMI. Absent: scleral icterus, conjunctival injection, periorbital swelling ENT exam: Present: normal exam, mucous membranes moist Neck exam: Present: normal inspection. Absent: tenderness, meningismus, lymphadenopathy Respiratory exam: Present: normal lung sounds bilaterally. Absent: respiratory distress, wheezes, rales, rhonchi, stridor Cardiovascular Exam: Present: tachycardia, irregular rhythm, normal heart sounds. Absent: systolic murmur, diastolic murmur, rubs, gallop, clicks GI/Abdominal exam: Present: soft, normal bowel sounds. Absent: distended, tenderness, guarding, rebound, rigid Extremities exam: Present: normal inspection, full ROM, normal capillary refill. Absent: tenderness, pedal edema, joint swelling, calf tenderness Back exam: Present: normal inspection Neurological exam: Present: alert, oriented X3, CN II-XII intact Psychiatric exam: Present: normal affect, normal mood Skin exam: Present: warm, dry, intact, normal color. Absent: rash Course Vital Signs 05/07/18 05/07/18 05/07/18 05:46 06:10 06:53 Temperature 98.7 F Pulse Rate 132 H 131 H 121 H Respiratory 20 20 18 Rate Blood Pressure 96/55 91/42 O2 Sat by Pulse 95 93 L 98 Oximetry 05/07/18 05/07/18 05/07/18 07:11 07:15 07:40 Temperature Pulse Rate 96 101 H 129 H Respiratory 18 18 Rate Blood Pressure 68/46 85/63 85/73 O2 Sat by Pulse 98 98 97 Oximetry 05/07/18 05/07/18 05/07/18 07:50 08:00 08:10 Temperature Pulse Rate 126 H 126 H 125 H Respiratory 18 16 18 Rate Blood Pressure 95/69 95/63 101/84 O2 Sat by Pulse 98 97 96 Oximetry 05/07/18 05/07/18 05/07/18 08:20 08:40 09:10 Temperature Pulse Rate 117 H 125 H 124 H Respiratory 18 20 Rate Blood Pressure 107/62 93/59 107/65 O2 Sat by Pulse 94 L 96 94 L Oximetry 05/07/18 09:20 Temperature Pulse Rate 123 H Respiratory Rate Blood Pressure 96/63 O2 Sat by Pulse 94 L Oximetry - Reevaluation(s) Reevaluation #1: 05/07/18 05:59 Medical record is reviewed Reevaluation #2: Patient with borderline blood pressure but is improved with IV hydration, patient will be started on Cardizem Medical Decision Making - Medical Decision Making 87 female the ER for evaluation, patient does have dehydration related to mildly low blood pressure as well as A. fib with RVR. Patient has adequate rate control currently. Improved with hydration improved with rate control. Symptoms are improved - Lab Data Result diagrams: 05/07/18 05:59 05/07/18 05:59 Lab Results 05/07/18 05/07/18 05/07/18 Range/Units 05:56 05:59 05:59 WBC 8.1 (3.8-10.6) k/uL RBC 3.77 L (3.80-5.40) m/uL Hgb 10.5 L (11.4-16.0) gm/dL Hct 31.9 L (34.0-46.0) % MCV 84.6 (80.0-100.0) fL MCH 27.9 (25.0-35.0) pg MCHC 33.0 (31.0-37.0) g/dL RDW 15.4 (11.5-15.5) % Plt Count 324 (150-450) k/uL Neutrophils % 71 % Lymphocytes % 18 % Monocytes % 6 % Eosinophils % 3 % Basophils % 0 % Neutrophils # 5.7 (1.3-7.7) k/uL Lymphocytes # 1.4 (1.0-4.8) k/uL Monocytes # 0.5 (0-1.0) k/uL Eosinophils # 0.3 (0-0.7) k/uL Basophils # 0.0 (0-0.2) k/uL PT (9.0-12.0) sec INR (<1.2) APTT (22.0-30.0) sec Sodium 135 L (137-145) mmol/L Potassium 4.2 (3.5-5.1) mmol/L Chloride 97 L (98-107) mmol/L Carbon Dioxide 26 (22-30) mmol/L Anion Gap 12 mmol/L BUN 31 H (7-17) mg/dL Creatinine 0.81 (0.52-1.04) mg/dL Est GFR (CKD-EPI)AfAm 76 (>60 ml/min/1.73 sqM) Est GFR (CKD-EPI)NonAf 66 (>60 ml/min/1.73 sqM) Glucose 188 H (74-99) mg/dL POC Glucose (mg/dL) 211 H (75-99) mg/dL POC Glu [employer] ID Lavonne Medrano Plasma Lactic Acid Fran (0.7-2.0) mmol/L Calcium 9.2 (8.4-10.2) mg/dL Phosphorus 3.8 (2.5-4.5) mg/dL Magnesium 1.4 L (1.6-2.3) mg/dL Total Bilirubin 0.7 (0.2-1.3) mg/dL AST 21 (14-36) U/L ALT 38 (9-52) U/L Alkaline Phosphatase 80 (38-126) U/L Troponin I (0.000-0.034) ng/mL Total Protein 6.1 L (6.3-8.2) g/dL Albumin 3.5 (3.5-5.0) g/dL TSH 6.790 H (0.465-4.680) mIU/L 05/07/18 05/07/18 05/07/18 Range/Units 05:59 05:59 05:59 WBC (3.8-10.6) k/uL RBC (3.80-5.40) m/uL Hgb (11.4-16.0) gm/dL Hct (34.0-46.0) % MCV (80.0-100.0) fL MCH (25.0-35.0) pg MCHC (31.0-37.0) g/dL RDW (11.5-15.5) % Plt Count (150-450) k/uL Neutrophils % % Lymphocytes % % Monocytes % % Eosinophils % % Basophils % % Neutrophils # (1.3-7.7) k/uL Lymphocytes # (1.0-4.8) k/uL Monocytes # (0-1.0) k/uL Eosinophils # (0-0.7) k/uL Basophils # (0-0.2) k/uL PT 10.3 (9.0-12.0) sec INR 1.0 (<1.2) APTT 26.0 (22.0-30.0) sec Sodium (137-145) mmol/L Potassium (3.5-5.1) mmol/L Chloride (98-107) mmol/L Carbon Dioxide (22-30) mmol/L Anion Gap mmol/L BUN (7-17) mg/dL Creatinine (0.52-1.04) mg/dL Est GFR (CKD-EPI)AfAm (>60 ml/min/1.73 sqM) Est GFR (CKD-EPI)NonAf (>60 ml/min/1.73 sqM) Glucose (74-99) mg/dL POC Glucose (mg/dL) (75-99) mg/dL POC Glu [employer] ID Plasma Lactic Acid Fran 1.5 (0.7-2.0) mmol/L Calcium (8.4-10.2) mg/dL Phosphorus (2.5-4.5) mg/dL Magnesium (1.6-2.3) mg/dL Total Bilirubin (0.2-1.3) mg/dL AST (14-36) U/L ALT (9-52) U/L Alkaline Phosphatase (38-126) U/L Troponin I 0.019 (0.000-0.034) ng/mL Total Protein (6.3-8.2) g/dL Albumin (3.5-5.0) g/dL TSH (0.465-4.680) mIU/L - Radiology Data Radiology results: report reviewed (Chest x-rays negative for acute disease shows improvement), image reviewed Critical Care Time Critical Care Time: Yes Total Critical Care Time: 31 Disposition Clinical Impression: Atrial fibrillation, AF (paroxysmal atrial fibrillation), Atrial fibrillation with RVR, Dehydration Disposition: ADMITTED IP TO THIS HOSP Condition: Fair Is patient prescribed a controlled substance at d/c from ED?: No
[2018-05-07] MEDS ORDERED: DILTIAZEM 125 MG in SODIUM CHLORIDE 0.9% 100 ML IV SCH (06:00)
[2018-05-07 06:17] LABS: Basophils % (A) 0 %; Eosinophils # (A) 0.3 k/uL (0-0.7); Eosinophils % (A) 3 %; HCT 31.9 % (34.0-46.0); HGB 10.5 gm/dL (11.4-16.0); Lymphocytes # (A) 1.4 k/uL (1.0-4.8); Lymphocytes % (A) 18 %; MCH 27.9 pg (25.0-35.0); MCV 84.6 fL (80.0-100.0); Mean Platelet Volume 6.6; Monocytes # (A) 0.5 k/uL (0-1.0); Monocytes % (A) 6 %; Neutrophils # (A) 5.7 k/uL (1.3-7.7); Neutrophils % (A) 71 %; Platelet Count 324 k/uL (150-450); RBC 3.77 m/uL (3.80-5.40); RDW 15.4 % (11.5-15.5); WBC 8.1 k/uL (3.8-10.6)
[2018-05-07 06:27] LABS: Potassium 4.2 mmol/L (3.5-5.1); Prothrombin Time 10.3 sec (9.0-12.0)
[2018-05-07 06:28] LABS: Albumin 3.5 g/dL (3.5-5.0); Calcium 9.2 mg/dL (8.4-10.2); Magnesium 1.4 mg/dL (1.6-2.3); Phosphorus 3.8 mg/dL (2.5-4.5); Total Bilirubin 0.7 mg/dL (0.2-1.3); Total Protein 6.1 g/dL (6.3-8.2)
[2018-05-07] MEDS ORDERED: NITROGLYCERIN SL TABS 0.4 MG TAB SUBLINGUAL PRN (06:44)
[2018-05-07] MEDS: MAGNESIUM SULFATE-D5W PMX 1 GM in DEXTROSE/WATER 1 100ML.BAG IVPB SCH ×2 (07:05→09:19)
[2018-05-07] MEDS: SODIUM CHLORIDE 0.9% 1,000 ML IV SCH ×2 (07:13→17:15)
[2018-05-07] MEDS ORDERED: SODIUM CHLORIDE 0.9% 1,000 ML IV ONE (07:17)
--- NOTE | 2018-05-07 07:59 | XR ---
EXAMINATION TYPE: XR chest 1V portable DATE OF EXAM: 05/07/2018 COMPARISON: 01/02/2018 HISTORY: Shortness of breath TECHNIQUE: Single frontal view of the chest is obtained. FINDINGS: The cardiomegaly, atherosclerotic change aorta and diffuse interstitial pattern are noted. There is interval marked improvement in bilateral pleural effusions. No pneumothorax. IMPRESSION: Interval improvement in basilar consolidation and pleural effusions with persistent inte rstitial changes likely on the basis of improving CHF. Interstitial pneumonitis also the differential diagnosis.
[2018-05-07] MEDS ORDERED: METOPROLOL TARTRATE 25 MG TAB PO SCH (09:00)
[2018-05-07 09:41] LABS: Glucose,Whole Blood 211 mg/dL (75-99)
[2018-05-07 09:51] VITALS: BMI 25.1
[2018-05-07] MEDS ORDERED: IPRATROPIUM-ALBUTEROL 3 ML NEB INHALATION PRN (11:15)
[2018-05-07 12:19] LABS: Glucose,Whole Blood 183 mg/dL (75-99)
[2018-05-07] MEDS: INSULIN ASPART (NovoLOG) 100 UNIT/ML VIAL SQ SCH ×3 (12:50→20:57)
[2018-05-07] MEDS ORDERED: FUROSEMIDE 10 MG/ML 4 ML VIAL IV STA (13:22)
--- NOTE | 2018-05-07 13:22 | P.HPIM ---
History of Present Illness H&P Date: 05/07/18 Chief Complaint: Stefani travis with RVR, unstable angina, CAD, hypertension, hyperl ipidemia, advanc 87-year-old female from [facility] on leg who [facility] at [facility] today because of episode of tachycardia with rapid ventricular response found to have pulse rate running 100 5260 beats per minutes around 3:00 after midnight the same time patient was complaining of worsening with increased chest pain with minimum exertion at the time associated with palpitation, cold sweat, nausea with no vomiting. Even she had advanced dementia Complaining to the caregiver about her symptoms ended up being sent to the emergency department at the time her pulse rate was running over 140 bpm irregular her CK with troponin was negative. Patient is on anticoagulation for Stefani travis she was started on Cardizem drip and admitted to the hospital for the above problem. Review of Systems CONSTITUTIONAL: Well-developed no acute respiratory distress. Confuse EYES: No icterus sclerae, no conjunctivitis. EARS, NOSE, MOUTH, THROAT, and FACE: No sore throat, lymphadenopathy, carotid bruits or deformity. RESPIRATORY: Positive mild shortness of breath with cough no wheezes. CARDIOVASCULAR: Positive chest pain, palpitation, orthopnea and angina. GASTROINTESTINAL: No Abd pain, Nausea or vomiting, no Diarrhea or constipation, No GI Bleed, no distention or masses. GENITOURINARY: Negative for Hematuria or UTI, no kidney stones. INTEGUMENT/BREAST: Negative for any muscular injury with mild osteoarthritis.. HEMATOLOGIC/LYMPHATIC: Negative for bleed or purpura. MUSCULOSKELTAL: Negative for Myalgia or arthralgia. NEURLOGICAL: No LOC, Sz or syncope, blurred vision dizziness or abnormality. Advance dementia. BEHAVIORAL/PSYCH: Negative. ENDOCRINE: Negative. Past Medical History Past Medical History: Atrial Fibrillation, Coronary Artery Disease (CAD), Heart Failure, CVA/TIA, Dementia, Diabetes Mellitus, Eye Disorder, GERD/Reflux, GI Bleed, Hyperlipidemia, Hypertension, Myocardial Infarction ([place]), Osteoarthritis (OA) Additional Past Medical History / Comment(s): NIDDM type II, neuropathy bilateral feet, retinopathy bilateral eyes, CVA with L sided weakness, prolapsed mitral valve, aortic stenosis, SBO with surgery and post op ileus as well as acute respiratoy failure, difficulty with swallowing, lower GI bleed, iron deficiency anemia-has had iron infusions in the past, vitamin D deficiency, back pain and R leg pain, FALLS. Last Myocardial Infarction Date:: 2006? History of Any Multi-Drug Resistant Organisms: None Reported Past Surgical History: Hysterectomy Additional Past Surgical History / Comment(s): Cardiac angioplasty, 12/2017 exploratory lap with lysis of adhesions d/t SBO, epidural pain injections, L eye injections for retinopathy, cataracts/lens implants, EGD/colonoscopies. Past Anesthesia/Blood Transfusion Reactions: No Reported Reaction Smoking Status: Never smoker - Past Family History Mother Additional Family Medical History / Comment(s): Mother from a ruptured brain Anuerysm. Father Family Medical History: CVA/TIA Additional Family Medical History / Comment(s): Father in his 70s from multiple CVAs. Sister(s) Family Medical History: Diabetes Mellitus Additional Family Medical History / Comment(s): Cardiac issues Brother(s) Family Medical History: Diabetes Mellitus Additional Family Medical History / Comment(s): cardiac issues Medications and Allergies Home Medications Medication Instructions Recorded Confirmed Type Cholecalciferol [Vitamin D3] 1,000 unit PO DAILY 07/20/16 05/07/18 History Docusate [Colace] 100 mg PO Q48H 07/20/16 05/07/18 History Multivitamins, Thera [Multivitamin 1 tab PO DAILY 07/20/16 05/07/18 History (formulary)] Apixaban [Eliquis] 2.5 mg PO BID #60 tab 08/18/16 05/07/18 Rx Atorvastatin [Lipitor] 80 mg PO HS 11/19/16 05/07/18 History Amiodarone [Cordarone] 100 mg PO DAILY #30 tab 12/31/16 05/07/18 Rx Ferrous Sulfate [Iron (65 MG 325 mg PO AC-BID@0900,1700 12/19/17 05/07/18 History Elemental)] Pantoprazole Sodium [Protonix] 40 mg PO DAILY 12/19/17 05/07/18 History Tolterodine Tartrate [Detrol LA] 4 mg PO HS 12/19/17 05/07/18 History Ipratropium-Albuterol Nebulize 3 ml INHALATION RT-Q2H PRN 01/04/18 05/07/18 Rx [Duoneb 0.5 mg-3 mg/3 ml Soln] ampul.neb Furosemide [Lasix] 40 mg PO DAILY@0600 05/02/18 05/07/18 History Furosemide [Lasix] 40 mg PO MOWEFR@1400 05/02/18 05/07/18 History Glucerna Shake 1 can PO DAILY@2000 05/02/18 05/07/18 History Ipratropium-Albuterol Nebulize 3 ml INHALATION RT-TID 05/02/18 05/07/18 History [Duoneb 0.5 mg-3 mg/3 ml Soln] Lactobacillus Acidophilus 1 tab PO Q48H 05/02/18 05/07/18 History [Acidophilus] Melatonin 5 mg PO HS PRN 05/02/18 05/07/18 History Mylanta 30 ml PO Q4H PRN 05/02/18 05/07/18 History metFORMIN HCL [Metformin HCl] 500 mg PO BID@0800,1700 05/02/18 05/07/18 History House Sooth & Cool Powder 1 applic TOPICAL Q12H 05/07/18 05/07/18 History Pantoprazole [Protonix] 40 mg PO DAILY 05/07/18 05/07/18 History guaiFENesin [Mucinex] 600 mg PO BID PRN 05/07/18 05/07/18 History Allergies Allergy/AdvReac Type Severity Reaction Status Date / Time Influenza Virus Vaccines Allergy Unknown Verified 05/07/18 09:55 latex Allergy Rash/Hives Verified 05/07/18 07:09 Sulfa (Sulfonamide AdvReac Nausea & Verified 05/07/18 07:09 Antibiotics) Vomiting Physical Exam Vitals: Vital Signs Temp Pulse Resp BP Pulse Ox 05/07/18 09:51 97.7 F 05/07/18 09:10 124 H 20 107/65 94 L 05/07/18 08:40 125 H 93/59 96 05/07/18 08:20 117 H 18 107/62 94 L 05/07/18 08:10 125 H 18 101/84 96 05/07/18 08:00 126 H 16 95/63 97 05/07/18 07:50 126 H 18 95/69 98 05/07/18 07:40 129 H 85/73 97 05/07/18 07:15 101 H 18 85/63 98 03/01/19 07:11 96 18 68/46 98 05/07/18 06:53 121 H 18 91/42 98 05/07/18 06:10 131 H 20 96/55 93 L 05/07/18 05:46 98.7 F 132 H 20 95 Intake and Output 05/06/18 05/07/18 05/07/18 22:59 06:59 14:59 Intake Total 1.167 Balance 1.167 Intake: Intake, IV Titration 1.167 Amount Diltiazem 125 mg In 1.167 Sodium Chloride 0.9% 100 ml @ 5 MG/HR 5 mls/hr IV .Q24H [facility] Rx#:[id number] Other: Weight 72.847 kg General Appearance: Alert, cooperative, no distress, appears stated age. Severely confuse with significant dementia Neck HEENT: Supple, no lymphadenopathy, no thyroid enlargement, no carotid bruits. Lungs: Clear to auscultation without crackles or wheezes no rhonchi, no deformity. Chest Wall: Chest wall normal expansion with deep inspiration no tenderness and no deformity was found on exam, no costochondral pain or discomfort. Heart: Irregular rate and rhythm, S1, S2 normal, no murmur, rub or gallop. Positive 3/6 ejection systolic murmur in the Typical for aortic stenosis and 2/6 murmur better heard in the left second costal space mostly mitral regurgitation Back: Symmetric, no curvature, ROM normal, no CVA tenderness. Abdomen: Soft, non-tender, bowel sounds active all four quadrants, no masses, no organomegaly. Extremities: Extremities normal, atraumatic, no cyanosis or edema. Pulses: 2+ and symmetric. Skin: Skin color, texture, tugor normal, no rashes or lesions. Neurologic: Alert severely confuse moving all her 4 extremity generalized weakness no focal deficit. Results CBC & Chem 7: 05/07/18 05:59 05/07/18 05:59 Labs: Abnormal Lab Results - Last 24 Hours (Table) 05/07/18 05/07/18 05/07/18 Range/Units 05:56 05:59 05:59 RBC 3.77 L (3.80-5.40) m/uL Hgb 10.5 L (11.4-16.0) gm/dL Hct 31.9 L (34.0-46.0) % Sodium 135 L (137-145) mmol/L Chloride 97 L (98-107) mmol/L BUN 31 H (7-17) mg/dL Glucose 188 H (74-99) mg/dL POC Glucose (mg/dL) 211 H (75-99) mg/dL Magnesium 1.4 L (1.6-2.3) mg/dL Total Protein 6.1 L (6.3-8.2) g/dL TSH 6.790 H (0.465-4.680) mIU/L 05/07/18 Range/Units 09:39 RBC (3.80-5.40) m/uL Hgb (11.4-16.0) gm/dL Hct (34.0-46.0) % Sodium (137-145) mmol/L Chloride (98-107) mmol/L BUN (7-17) mg/dL Glucose (74-99) mg/dL POC Glucose (mg/dL) 211 H (75-99) mg/dL Magnesium (1.6-2.3) mg/dL Total Protein (6.3-8.2) g/dL TSH (0.465-4.680) mIU/L Thrombosis Risk Factor Assmnt - DVT/VTE Prophylaxis DVT/VTE Prophylaxis: Pharmacologic Prophylaxis ordered, Mechanical Prophylaxis ordered - Choose All That Apply Other Risk Factors: Yes Each Risk Factor Represents 3 Points: Age 75 years or older Other congenital or acquired thrombophilia - If yes, enter type in comment: No Thrombosis Risk Factor Assessment Total Risk Factor Score: 3 Thrombosis Risk Factor Assessment Level: Moderate Risk Assessment and Plan Plan: 1 A. fib with RVR: With patient's current symptoms was hospitalized started on Cardizem drip remain on Eliquis 2.5 g twice a day patient was previously on amiodarone 100 mg daily when she left the hospital last time was doing 200 mg twice a day and may be her amiodarone need to be increased slightly more also patient can benefit from smaller dose of beta joaquin like metoprolol 25 mg twice a day. We'll consult cardiology, echocardiogram will be requested for better evaluation of patient heart function. 2 unstable angina: With recurrent chest pain aggravated by the A. fib, patient is not a good candidate for any intervention will continue CK with troponin 3, consult cardiology and further intervention or testing will be discussed with cardiology and the family at the time. 3 significant shortness of breath: Most likely from A. fib with RVR addition to congestive heart failure mostly systolic dysfunction with mild diastolic component given mind patient is more symptomatic with her aortic stenosis at this point. 4 valvular heart disease: Patient had severe aortic stenosis and mild mitral regurgitation both are treated medically she had decline doing surgery in the past. 5 diabetes diabetes: On metformin 500 mg twice a day we will continue Accu-Chek with sliding scales coverage. 6 Hypothyroidism: Most likely brought by amiodarone at this point patient is not on any medication will add free T4 to her testing and if needed smaller dose of Synthroid might be beneficial. 7 hyperlipidemia: Has been on atorvastatin 80 mg daily. 8 incontinence: Has been on Detrol. 9 reactive airway/COPD: Patient remain on albuterol/ipratropium. 10 severe GERD/GI prophylaxis: Remain on pantoprazole 40 mg daily. 11 dementia: Alzheimer type with slight with worsening lately. Still not on any medication. CODE STATUS: DO NOT RESUSCITATE. Admit patient to inpatient status for more than 2 nights.
[2018-05-07] MEDS: IPRATROPIUM-ALBUTEROL 3 ML NEB INHALATION SCH ×2 (14:22→20:06)
--- NOTE | 2018-05-07 14:56 | CONS ---
CONSULTATION Mrs. Flores is an 87-year-old female who is seen for cardiac evaluation. This patient's charts and old medical records reviewed. This patient lives at [facility]. She was brought to the [facility] because of the atrial fib tachycardia. Patient was found to be in atrial fibrillation with a rapid ventricular response and patient was having some chest discomfort, palpitation, cold sweats. She did not had any nausea or vomiting. In the emergency room, patient's heart rate was 140. Patient was started on Cardizem drip. This patient is known to have a severe aortic stenosis with a prior history of stroke and chronic atrial fibrillation. Patient is not considered any candidate for surgical valve replacement. Patient had a past history of cardiac angioplasty. Patient had a exploratory laparotomy with lysis of adhesions for the small-bowel obstructions, epidural pain injections, eye injections, cataract surgery and EGD procedures. Patient's home medications include vitamin D3, Eliquis 2.5 mg b.i.d., Cordarone 100 mg daily, Protonix 40 mg daily, Detrol LA 40 mg daily, metformin 500 mg b.i.d. PHYSICAL EXAMINATION: At present reveals 87-year-old female who is at present, not in any acute distress. Patient's blood pressure is in the range of 103/79 mmHg. Oxygen saturation is 94%. HEENT examination is negative. Neck is supple. The jugular venous pressure is difficult to assess. HEART: The first and second heart sounds are normal. There is a grade 3/6 loud systolic murmur noted. Second heart sound is soft. Lungs reveal bilateral basal rales. ABDOMEN: Soft. EXTREMITIES: Peripheral pulsations are not felt. Patient's chest x-ray suggestive of pulmonary edema. Patient's initial troponin is 0.019, second troponin is 3.3. Electrolytes are normal, creatinine is 0.810. This patient received 3 L of fluid in the emergency room. Patient's heart rate now is in the range of 100-110. FINAL IMPRESSION: This patient is admitted with atrial fibrillation, rapid ventricular response, and the patient has evidence of severe aortic stenosis and currently is in pulmonary edema. Patient has elevated troponin of 3, which is suggestive for type 2 myocardial infarction secondary to supply and demand mismatch. Patient's echocardiogram reveals a hyperdynamic mid and basal portion of the left ventricle with apical hypokinesia. RECOMMENDATIONS: We will start the patient on a small dose of Lopressor to control the rate and increase the amiodarone to 200 mg t.i.d. and the patient will be started on Lasix 40 mg q.12 hourly to control the patient's heart failure. Patient's overall prognosis is poor because of severe aortic stenosis and patient also has a left ventricular outflow tract obstruction. ARJUN / YENI: [id number] /
[2018-05-07] MEDS: METOPROLOL TARTRATE 12.5 MG TAB PO SCH ×2 (15:14→21:00)
[2018-05-07] MEDS: AMIODARONE 200 MG TAB PO SCH ×2 (15:14→21:00)
[2018-05-07 15:23] LABS: Appearance,Urine Clear (Clear); Bilirubin,Urine Negative (Negative); Blood,Urine Negative (Negative); Color,Urine Light Yellow; Glucose,Urine (UA) Negative (Negative); Ketones,Urine Negative (Negative); Leukocyte Esterase,Urine Negative (Negative); Nitrite,Urine Negative (Negative); PH, Urine 5.5 (5.0-8.0); Protein,Urine Negative (Negative); Urobilinogen,Urine <2.0 mg/dL (<2.0)
[2018-05-07] MEDS ORDERED: MAG HYDROX/AL HYDROX/SIMETH 30 ML CUP PO PRN (16:10)
--- NOTE | 2018-05-07 16:12 | P.CNPUL ---
History of Present Illness Consult date: 05/07/18 Reason for consult: dyspnea, hypoxemia History of present illness: 87-year-old female patient who is a [facility] resident and she resides at [facility] on the [place], woke up yesterday with increased shortness of breath. She was found to be tachycardic and she was having some chest pain and shortness of breath. She was found in A. fib with RVR and the heart rate was in the range of 160. She presented to the emergency department and the patient was given 50 mg of Cardizem bolus and she was given fluids 3 L of normal saline as the patient became hypotensive following the Cardizem. Subsequently, the patient was maintained on normal saline at the rate of 75 mL an hour. The patient went into natalie pulmonary edema and she became even more short of breath. She arrived to the intensive care unit and the patient was started on diuretics. The patient was started on Lasix 40 mg IV push every 12 hours. The Cardizem drip was at 2.5 mg an hour and this was discontinued. She was started on higher dose amiodarone 200 mg by mouth 3 times a day. For now the patient is making excellent amount of urine output. She has diuresed aggressively. She is down to 6 L of oxygen nasal cannula. She does have some crackers in the mid and the lower lung tobias bilaterally. Her heart rate is under better control for now. She is alert and awake. No nausea. No vomiting. No pleurisy. No hemoptysis. No abdominal pain. She was in our hospital approximately 5 months ago for a bowel obstruction and back then the patient required extensive laparotomy and lysis of adhesions. She has been maintained on long-term anticoagulation with Eliquis. The echo from 2017 showed a preserved LV function with an ejection fraction of about 70% and the patient has moderate severe aortic stenosis with a peak gradient across the aortic valve of 89 mmHg and moderate degree of mitral stenosis. Currently she does not have any edema in the lower extremities. She has underlying dementia. She is also impaired hearing. Her other comorbidities include CAD, previous history of CVA, dementia , diabetes, hypertension, hyperlipidemia, previous DC and some residual left- sided weakness secondary to previous CVA. Review of Systems Constitutional: Reports fatigue, Reports weakness, Reports weight gain Eyes: bilateral blurred vision, bilateral bulging eye, bilateral decreased vision, denies as per HPI, denies diplopia, denies discharge, denies dry eye, denies irritation, denies itching, denies pain, denies photophobia, denies loss of peripheral vision, denies loss of vision, denies tunnel vision/blind spots Ears: bilateral: decreased hearing, deny: ear discharge, earache, tinnitus Ears, nose, mouth and throat: Denies headache, Denies sore throat Breasts: absent: as per HPI, change in shape, gynecomastia, masses, nipple discharge, pain, skin changes, swelling Cardiovascular: Reports decreased exercise tolerance, Reports dyspnea on exertion, Reports irregular heart beat, Reports orthopnea, Reports palpitations , Reports shortness of breath Respiratory: Reports dyspnea Gastrointestinal: Denies abdominal pain, Denies diarrhea, Denies nausea, Denies vomiting Genitourinary: Reports as per HPI Menstruation: Reports as per HPI Musculoskeletal: Reports frequent falls, Reports limitation of motion, Reports muscle weakness, Denies myalgias Musculoskeletal: absent: ankle pain, ankle stiffness, ankle swelling, as per HPI , elbow pain, elbow stiffness, elbow swelling, foot pain, foot stiffness, foot swelling, hand pain, hand stiffness, hand swelling, hip pain, hip stiffness, hip swelling, knee pain, knee stiffness, knee swelling, shoulder pain, shoulder stiffness, shoulder swelling, wrist pain, wrist stiffness, wrist swelling Integumentary: Reports as per HPI Neurological: Reports as per HPI, Reports balance difficulties, Reports gait dysfunction, Reports hearing difficulties, Reports lack of coordination, Reports memory loss, Reports weakness Psychiatric: Denies anxiety, Denies depression Endocrine: Reports fatigue Hematologic/Lymphatic: Reports as per HPI Allergic/Immunologic: Reports as per HPI Past Medical History Past Medical History: Atrial Fibrillation, Coronary Artery Disease (CAD), CVA/ TIA, Dementia, Diabetes Mellitus, GI Bleed, Hyperlipidemia, Hypertension, Myocardial Infarction (DC), Osteoarthritis (OA) Additional Past Medical History / Comment(s): Coronary artery disease, moderate to severe aortic stenosis, chronic atrial fibrillation, history of CVA with some residual left-sided weakness, dementia, diabetes mellitus type 2, acid reflux, hyperlipidemia, hypertension, previous DC, previous history of small bowel obstruction, chronic anemia, vitamin D deficiency, chronic back pain, history of recurrent falls. Vision, impaired hearing, difficulty with mobility and gait and the patient uses a walker at the [facility]. Last Myocardial Infarction Date:: 2006? History of Any Multi-Drug Resistant Organisms: None Reported Past Surgical History: Hysterectomy Additional Past Surgical History / Comment(s): angioplasty Past Anesthesia/Blood Transfusion Reactions: No Reported Reaction Past Psychological History: No Psychological Hx Reported Smoking Status: Never smoker Past Alcohol Use History: None Reported Past Drug Use History: None Reported - Past Family History Mother Additional Family Medical History / Comment(s): Brain An. Father Family Medical History: CVA/TIA Additional Family Medical History / Comment(s): Father in his 70s from multiple CVAs. Sister(s) Family Medical History: Diabetes Mellitus Additional Family Medical History / Comment(s): Cardiac issues Brother(s) Family Medical History: Diabetes Mellitus Additional Family Medical History / Comment(s): cardiac issues Medications and Allergies Home Medications Medication Instructions Recorded Confirmed Type Cholecalciferol [Vitamin D3] 1,000 unit PO DAILY 07/20/16 05/07/18 History Docusate [Colace] 100 mg PO Q48H 07/20/16 05/07/18 History Multivitamins, Thera [Multivitamin 1 tab PO DAILY 07/20/16 05/07/18 History (formulary)] Apixaban [Eliquis] 2.5 mg PO BID #60 tab 08/18/16 05/07/18 Rx Atorvastatin [Lipitor] 80 mg PO HS 11/19/16 05/07/18 History Amiodarone [Cordarone] 100 mg PO DAILY #30 tab 12/31/16 05/07/18 Rx Ferrous Sulfate [Iron (65 MG 325 mg PO AC-BID@0900,1700 12/19/17 05/07/18 History Elemental)] Pantoprazole Sodium [Protonix] 40 mg PO DAILY 12/19/17 05/07/18 History Tolterodine Tartrate [Detrol LA] 4 mg PO HS 12/19/17 05/07/18 History Ipratropium-Albuterol Nebulize 3 ml INHALATION RT-Q2H PRN 01/04/18 05/07/18 Rx [Duoneb 0.5 mg-3 mg/3 ml Soln] ampul.neb Furosemide [Lasix] 40 mg PO DAILY@0600 05/02/18 05/07/18 History Furosemide [Lasix] 40 mg PO MOWEFR@1400 05/02/18 05/07/18 History Glucerna Shake 1 can PO DAILY@199905/02/18 05/07/18 History Ipratropium-Albuterol Nebulize 3 ml INHALATION RT-TID 05/02/18 05/07/18 History [Duoneb 0.5 mg-3 mg/3 ml Soln] Lactobacillus Acidophilus 1 tab PO Q48H 05/02/18 05/07/18 History [Acidophilus] Melatonin 5 mg PO HS PRN 05/02/18 05/07/18 History Mylanta 30 ml PO Q4H PRN 05/02/18 05/07/18 History metFORMIN HCL [Metformin HCl] 500 mg PO BID@0800,1700 05/02/18 05/07/18 History House Sooth & Cool Powder 1 applic TOPICAL Q12H 05/07/18 05/07/18 History Pantoprazole [Protonix] 40 mg PO DAILY 05/07/18 05/07/18 History guaiFENesin [Mucinex] 600 mg PO BID PRN 05/07/18 05/07/18 History Allergies Allergy/AdvReac Type Severity Reaction Status Date / Time Influenza Virus Vaccines Allergy Unknown Verified 05/07/18 09:55 latex Allergy Rash/Hives Verified 05/07/18 07:09 Sulfa (Sulfonamide AdvReac Nausea & Verified 05/07/18 07:09 Antibiotics) Vomiting Physical Exam Vitals: Vital Signs Temp Pulse Resp BP Pulse Ox 05/07/18 14:34 92 05/07/18 14:22 87 05/07/18 14:00 105 H 17 89/76 96 05/07/18 13:00 24 123/82 93 L 05/07/18 12:00 97.7 F 113 H 30 H 108/81 91 L 05/07/18 11:20 91 24 103/79 94 L 05/07/18 11:00 94 17 92/66 95 05/07/18 10:40 101 H 22 117/49 95 05/07/18 10:20 118 H 24 110/51 95 05/07/18 10:00 97.6 F 120 H 16 96/48 95 05/07/18 09:51 97.7 F 05/07/18 09:20 123 H 96/63 94 L 05/07/18 09:10 124 H 20 107/65 94 L 05/07/18 08:40 125 H 93/59 96 05/07/18 08:20 117 H 18 107/62 94 L 05/07/18 08:10 125 H 18 101/84 96 05/07/18 08:00 126 H 16 95/63 97 05/07/18 07:50 126 H 18 95/69 98 05/07/18 07:40 129 H 85/73 97 05/07/18 07:15 101 H 18 85/63 98 05/07/18 07:11 96 18 68/46 98 05/07/18 06:53 121 H 18 91/42 98 05/07/18 06:10 131 H 20 96/55 93 L 05/07/18 05:46 98.7 F 132 H 20 95 Intake and Output 05/07/18 05/07/18 05/07/18 06:59 14:59 22:59 Intake Total 501.167 Output Total 900 Balance -398.833 Intake: IV 500 Sodium Chloride 0.9% 1, 500 000 ml @ 100 mls/hr IV . Q10H EPIFANIO Rx#:[id number] Intake, IV Titration 1.167 Amount Diltiazem 125 mg In 1.167 Sodium Chloride 0.9% 100 ml @ 5 MG/HR 5 mls/hr IV .Q24H EPIFANIO Rx#:[id number] Output: Urine 900 Other: Voiding Method Bedpan Weight 72.847 kg General Appearance: Alert, cooperative, no distress, appears stated age. Severely confuse with significant dementia Neck HEENT: Supple, no lymphadenopathy, no thyroid enlargement, no carotid bruits. Lungs: Clear to auscultation without crackles or wheezes no rhonchi, no deformity. Chest Wall: Chest wall normal expansion with deep inspiration no tenderness and no deformity was found on exam, no costochondral pain or discomfort. The patient has crackles in the mid in the lower lung tobias bilaterally. Heart: Irregular rate and rhythm, S1, S2 normal, no murmur, rub or gallop. Positive 3/6 ejection systolic murmur in the Typical for aortic stenosis and 2/ 6 murmur better heard in the left second costal space mostly mitral regurgitation Back: Symmetric, no curvature, ROM normal, no CVA tenderness. Abdomen: Soft, non-tender, bowel sounds active all four quadrants, no masses, no organomegaly. Extremities: Extremities normal, atraumatic, no cyanosis or edema. Pulses: 2+ and symmetric. Skin: Skin color, texture, tugor normal, no rashes or lesions. Neurologic: Alert severely confuse moving all her 4 extremity generalized weakness no focal deficit. Patient has memory problems. The patient has difficulty with coordination and gait. Results - Laboratory Findings CBC and BMP: 05/07/18 05:59 05/07/18 05:59 PT/INR, D-dimer PT 10.3 sec (9.0-12.0) 05/07/18 05:59 INR 1.0 (<1.2) 05/07/18 05:59 Abnormal lab findings: Abnormal Labs 05/07/18 05/07/18 05/07/18 05:56 05:59 05:59 RBC 3.77 L Hgb 10.5 L Hct 31.9 L Sodium 135 L Chloride 97 L BUN 31 H Glucose 188 H POC Glucose (mg/dL) 211 H Magnesium 1.4 L Troponin I Total Protein 6.1 L TSH 6.790 H 05/07/18 05/07/18 05/07/18 09:39 12:17 12:18 RBC Hgb Hct Sodium Chloride BUN Glucose POC Glucose (mg/dL) 211 H 183 H Magnesium Troponin I 3.320 H* Total Protein TSH - Diagnostic Findings Chest x-ray: image reviewed Assessment and Plan Plan: Assessment 1 acute pulmonary edema with secondary acute hypoxic respiratory failure, improved currently on 6 L of oxygen nasal cannula 2 chronic atrial fibrillation with rapid ventricular response at a time of admission, heart rate is under better control 3 severe aortic stenosis with mitral stenosis based on the previous echocardiogram from 2017 4 coronary artery disease with a remote history of DC 5 history of CVA with left-sided weakness 6 dementia 7 hypothyroidism 8 hyperlipidemia 9 impaired performance and functional status secondary to above-mentioned comorbidities Plan Continue rate control with a combination of amiodarone 200 mg 3 times a day and initiated Lopressor 12.5 mg by mouth twice a day closely monitoring this patient 's blood pressure. Continue IV Lasix. Patient is currently on 40 mg every 12 hours and she is responding very nicely. Wean down the FiO2 as tolerated to maintain a saturation above 90%. May utilize a low-dose of the low-fat should she become hypotensive with the diuretics. Restart Eliquis. Restart Robitussin DM for cough. Restart aspirin, Lipitor, and vitamin D and multivitamins. Repeat echocardiogram. Cardiology on the case. Kept on Dilantin fluids to KVO. Provide diet. Continue to follow. DNR/DNI CODE STATUS.
[2018-05-07 16:48] LABS: Glucose,Whole Blood 140 mg/dL (75-99)
[2018-05-07] MEDS: metFORMIN 500 MG TAB PO SCH (17:15)
--- NOTE | 2018-05-07 18:51 | ECHOF ---
Referral Reason:lvfunction MEASUREMENTS -------- HEIGHT: 170.2 cm WEIGHT: 72.6 kg BP: LAESV Index (A-L): 62.78 ml/m Ao Diam: 1.9 cm (2.0 - 3.7) AV Cusp: 0.6 cm (1.5 - 2.6) LA Diam: 5.4 cm (2.7 - 3.8) AV maxP.69 mmHg AV meanP.61 mmHg RAP: 5.00 mmHg RVSP: 70.31 mmHg FINDINGS -------- Atrial fibrillation. This was a technically difficult study with suboptimal views. Bogard Hypokinesis. There appears to be a cavity obliteration causing an LVOT obstruction. Max gradie nt is 60mmHg. The RV was not well visualized. LA is severely dilated >40 ml/m2 The right atrium was not well visualized. 5.0mg of Lumason was utilized for enhancement of images Aortic valve is trileaflet and is severely thickened. There is severe aortic stenosis present. Pe ak/mean gradient across the Aortic Valve is 88.69mmHg / 47.61mmHg. The mitral valve leaflets are severely thickened. Severe mitral annular calcification present. Th ere is trace mitral regurgitation. There appears to be severe mitral stenosis. Unable to measure du e to afib. Mild tricuspid regurgitation present. There is severe pulmonary hypertension. The right ventricul ar systolic pressure, as measured by Doppler, is 70.31mmHg. The pulmonic valve was not well visualized. The aortic root size is normal. IVC Not well visulized. The pericardium is normal. CONCLUSIONS -------- 1. Atrial fibrillation. 2. This was a technically difficult study with suboptimal views. 3. Bogard Hypokinesis. 4. There appears to be a cavity obliteration causing an LVOT obstruction. Max gradient is 60 mmHg. 5. The RV was not well visualized. 6. LA is severely dilated >40 ml/m2 7. The right atrium was not well visualized. 8. 5.0mg of Lumason was utilized for enhancement of images 9. Aortic valve is trileaflet and is severely thickened. 10. There is severe aortic stenosis present. 11. Peak/mean gradient across the Aortic Valve is 88.69mmHg / 47.61mmHg. 12. The mitral valve leaflets are severely thickened. 13. Severe mitral annular calcification present. 14. There is trace mitral regurgitation. 15. There appears to be severe mitral stenosis. Unable to measure due to afib. 16. Mild tricuspid regurgitation present. 17. There is severe pulmonary hypertension. 18. The right ventricular systolic pressure, as measured by Doppler, is 70.31mmHg. 19. The pulmonic valve was not well visualized. 20. The aortic root size is normal. 21. IVC Not well visulized. 22. The pericardium is normal. PEDIATRIC DIETICIAN: Linda Madsen RDCS
[2018-05-07] MEDS ORDERED: NON-FORMULARY DRUG (Glucerna Shake 1 CAN) PO SCH (20:00)
[2018-05-07 20:09] LABS: Glucose,Whole Blood 160 mg/dL (75-99)
[2018-05-07] MEDS: APIXABAN 2.5 MG TABLET PO SCH (20:57)
[2018-05-07] MEDS: FUROSEMIDE 10 MG/ML 4 ML VIAL IV SCH (20:57)
[2018-05-07] MEDS: ATORVASTATIN 80 MG TAB PO SCH (21:00)
[2018-05-08 01:13] LABS: Cholesterol 105 mg/dL (<200); HDL Cholesterol 36 mg/dL (40-60); LDL Cholesterol,Calculated 39 mg/dL (0-99); Triglycerides 152 mg/dL (<150)
[2018-05-08] MEDS: SODIUM CHLORIDE 0.9% 1,000 ML IV SCH ×2 (05:53→16:41)
[2018-05-08 06:49] LABS: Glucose,Whole Blood 170 mg/dL (75-99)
[2018-05-08] MEDS: INSULIN ASPART (NovoLOG) 100 UNIT/ML VIAL SQ SCH ×4 (07:04→21:17)
[2018-05-08] MEDS: PANTOPRAZOLE 40 MG TABLET PO SCH (07:04)
[2018-05-08] MEDS: IPRATROPIUM-ALBUTEROL 3 ML NEB INHALATION SCH ×3 (07:46→20:20)
[2018-05-08 08:05] LABS: Basophils % (A) 0 %; Eosinophils # (A) 0.1 k/uL (0-0.7); Eosinophils % (A) 1 %; HCT 30.6 % (34.0-46.0); Lymphocytes # (A) 1.2 k/uL (1.0-4.8); Lymphocytes % (A) 14 %; MCH 27.8 pg (25.0-35.0); MCHC 32.7 g/dL (31.0-37.0); Mean Platelet Volume 7.1; Monocytes # (A) 0.5 k/uL (0-1.0); Monocytes % (A) 6 %; Neutrophils # (A) 6.8 k/uL (1.3-7.7); Neutrophils % (A) 79 %; Platelet Count 273 k/uL (150-450); RDW 15.4 % (11.5-15.5); WBC 8.6 k/uL (3.8-10.6)
[2018-05-08 08:30] LABS: Albumin 3.3 g/dL (3.5-5.0); Calcium 8.3 mg/dL (8.4-10.2); Magnesium 1.6 mg/dL (1.6-2.3); Potassium 3.7 mmol/L (3.5-5.1); Total Bilirubin 1.2 mg/dL (0.2-1.3); Total Protein 5.9 g/dL (6.3-8.2)
[2018-05-08] MEDS: CHOLECALCIFEROL 1,000 UNIT TAB PO SCH (08:42)
[2018-05-08] MEDS: APIXABAN 2.5 MG TABLET PO SCH ×2 (08:42→21:18)
[2018-05-08] MEDS: metFORMIN 500 MG TAB PO SCH ×2 (08:43→16:41)
[2018-05-08] MEDS: AMIODARONE 200 MG TAB PO SCH ×3 (08:43→21:18)
[2018-05-08] MEDS ORDERED: ASPIRIN 325 MG TAB PO SCH (09:00)
[2018-05-08] MEDS: METOPROLOL TARTRATE 12.5 MG TAB PO SCH ×2 (09:11→21:18)
[2018-05-08] MEDS ORDERED: Magnesium Replacement Protocol 1 EACH MISC MISCELLANE PRN (09:23)
[2018-05-08] MEDS ORDERED: Potassium Replacement Protocol 1 EACH MISC MISCELLANE PRN (09:23)
[2018-05-08] MEDS: MAGNESIUM SULFATE-D5W PMX 1 GM in DEXTROSE/WATER 1 100ML.BAG IVPB SCH ×2 (09:37→11:02)
[2018-05-08] MEDS ORDERED: POTASSIUM BICARBONATE/CIT AC 20 MEQ TABLET.EFF NG-TUBE SCH (10:00)
--- NOTE | 2018-05-08 10:26 | P.PN ---
Subjective Progress Note Date: 05/08/18 87-year-old female from [facility] on leg who brought to [facility] apartment at [facility] today because of episode of tachycardia with rapid ventricular response found to have pulse rate running 100 5260 beats per minutes around 3:00 after midnight the same time patient was complaining of worsening with increased chest pain with minimum exertion at the time associated with palpitation, cold sweat, nausea with no vomiting. Even she had advanced dementia Complaining to the caregiver about her symptoms ended up being sent to the emergency department at the time her pulse rate was running over 140 bpm irregular her CK with troponin was negative. Patient is on anticoagulation for A. fib she was started on Cardizem drip and admitted to the hospital for the above problem. 05/08: Patient is an overflow in the intensive care unit. Yesterday, patient developed acute respiratory distress and IV Lasix was started. Patient has diuresed well and lungs are clear at this time. Lasix will be discontinued for now. She states she is feeling good now. She did not sleep well during the night was up about every hour. She has had good urine output at about 100 MLS per hour. She is had 2-3 bowel movements yesterday. Her breathing is improved. She has been seen by cardiology and was started on Lopressor for rate control and amiodarone was increased to 200 mg 3 times daily. Patient was off Cardizem drip yesterday for hypotension. 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 Patient has also been seen by Dr. Duran with plan to maintain O2 saturations at 90%, eliquis was restarted Robitussin added for cough. [place] catheter was also placed yesterday. Repeat troponins was 10.5 and 4.8. Her blood glucose running between 160 and 237. Review of Systems CONSTITUTIONAL: Well-developed no acute respiratory distress. No fever no chills EYES: No icterus sclerae, no conjunctivitis. EARS, NOSE, MOUTH, THROAT, and FACE: No sore throat, lymphadenopathy, carotid bruits or deformity. RESPIRATORY: Denies mild shortness of breath with cough no wheezes. CARDIOVASCULAR: Denies chest pain, palpitation, orthopnea and angina. GASTROINTESTINAL: No Abd pain, Nausea or vomiting, no Diarrhea or constipation, No GI Bleed, no distention or masses. GENITOURINARY: Negative for Hematuria or UTI, no kidney stones. INTEGUMENT/BREAST: Negative for any muscular injury with mild osteoarthritis.. HEMATOLOGIC/LYMPHATIC: Negative for bleed or purpura. MUSCULOSKELTAL: Negative for Myalgia or arthralgia. NEURLOGICAL: No LOC, Sz or syncope, blurred vision dizziness or abnormality. Advance dementia. BEHAVIORAL/PSYCH: Negative. ENDOCRINE: Negative. Objective - Vital Signs Vital signs: Vital Signs Temp 98.2 F 05/08/18 04:00 Pulse 98 05/08/18 07:47 Resp 24 05/08/18 04:00 BP 91/60 05/08/18 04:00 Pulse Ox 93 L 05/08/18 04:00 Intake & Output 05/07/18 05/08/18 05/08/18 18:59 06:59 18:59 Intake Total 541.816 0422 Output Total 2250 3700 Balance -1748.833 -2550 Weight 77.2 kg Intake: IV 500 750 Sodium Chloride 0.9% 1, 500 750 000 ml @ 75 mls/hr IV . [id number] EPIFANIO Rx#:[id number] Intake, IV Titration 1.167 Amount Diltiazem 125 mg In 1.167 Sodium Chloride 0.9% 100 ml @ 5 MG/HR 5 mls/hr IV .Q24H EPIFANIO Rx#:[id number] Oral 400 Output: Urine 2250 3700 Other: Voiding Method Indwelling Catheter Indwelling Catheter - Exam General Appearance: Alert, cooperative, no distress, appears stated age. No acute distress. Neck HEENT: Supple, no lymphadenopathy, no thyroid enlargement, no carotid bruits. Lungs: Clear to auscultation without crackles or wheezes no rhonchi, no deformity. Chest Wall: Chest wall normal expansion with deep inspiration no tenderness and no deformity was found on exam, no costochondral pain or discomfort. Heart: Irregular rate and rhythm, S1, S2 normal, no murmur, rub or gallop. Positive 3/6 ejection systolic murmur in the Typical for aortic stenosis and 2/ 6 murmur better heard in the left second costal space mostly mitral stenosis Back: Symmetric, no curvature, ROM normal, no CVA tenderness. Abdomen: Soft, non-tender, bowel sounds active all four quadrants, no masses, no organomegaly. Extremities: Extremities normal, atraumatic, no cyanosis or edema. Pulses: 2+ and symmetric. Skin: Skin color, texture, tugor normal, no rashes or lesions. Neurologic: Alert and oriented 3 generalized weakness no focal deficit. - Labs CBC & Chem 7: 05/08/18 07:54 05/08/18 07:54 Labs: Abnormal Lab Results - Last 24 Hours (Table) 05/07/18 05/07/18 05/07/18 Range/Units 05:59 09:39 12:17 POC Glucose (mg/dL) 211 H (75-99) mg/dL Troponin I 3.320 H* (0.000-0.034) ng/mL Triglycerides 152 H (<150) mg/dL HDL Cholesterol 36 L (40-60) mg/dL 05/07/18 05/07/18 05/07/18 Range/Units 12:18 16:46 18:06 POC Glucose (mg/dL) 183 H 140 H (75-99) mg/dL Troponin I 10.500 H* (0.000-0.034) ng/mL Triglycerides (<150) mg/dL HDL Cholesterol (40-60) mg/dL 05/07/18 05/08/18 Range/Units 20:08 06:48 POC Glucose (mg/dL) 160 H 170 H (75-99) mg/dL Troponin I (0.000-0.034) ng/mL Triglycerides (<150) mg/dL HDL Cholesterol (40-60) mg/dL Microbiology - Last 24 Hours (Table) 05/07/18 14:00 Urine Culture - Preliminary Urine,Catheterized Assessment and Plan Plan: 1 A. fib with RVR with chronic atrial fibrillation, currently rate controlled. Cardiology consult appreciated. Amiodarone increased 200 mg 3 times daily and started Lopressor 12.5 mg twice daily, continue eliquis 2.5 mg twice daily. 2 unstable angina with elevated troponins. Cardiology on consult 3 acute hypoxic respiratory failure secondary to A. fib with RVR and acute systolic heart failure and fluid overload with known aortic stenosis and LV outlet obstruction. Patient required IV fluids which will be discontinued today. Echocardiogram as above. 4 valvular heart disease: Patient had severe aortic stenosis and mild mitral stenosis. Patient is not surgical candidate. 5 diabetes diabetes2: On metformin 500 mg twice a day we will continue Accu- Chek with sliding scales coverage. 6 Hypothyroidism: Most likely brought by amiodarone at this point patient is not on any medication will add free T4 to her testing and if needed smaller dose of Synthroid might be beneficial. 7 hyperlipidemia: Has been on atorvastatin 80 mg daily. 8 incontinence: Has been on Detrol. 9 reactive airway/COPD: Patient remain on albuterol/ipratropium. 10 severe GERD/GI prophylaxis: Remain on pantoprazole 40 mg daily. 11 dementia: Alzheimer type with slight with worsening lately. Still not on any medication. CODE STATUS: DO NOT RESUSCITATE. Discharge plan: Return to [facility] on Thursday Impression and plan of care have been directed as dictated by the signing physician. Isamar Clinton nurse practitioner acting as scribe for signing physician.
[2018-05-08 11:54] LABS: Glucose,Whole Blood 251 mg/dL (75-99)
[2018-05-08] MEDS: MULTIVITAMINS, THERA 1 EACH TAB PO SCH (12:18)
--- NOTE | 2018-05-08 13:47 | P.PN ---
Subjective Progress Note Date: 05/08/18 87-year-old female patient who is a halfway resident and she resides at [facility] on the [address], woke up yesterday with increased shortness of breath. She was found to be tachycardic and she was having some chest pain and shortness of breath. She was found in A. fib with RVR and the heart rate was in the range of 160. She presented to the emergency department and the patient was given 50 mg of Cardizem bolus and she was given fluids 3 L of normal saline as the patient became hypotensive following the Cardizem. Subsequently, the patient was maintained on normal saline at the rate of 75 mL an hour. The patient went into natalie pulmonary edema and she became even more short of breath. She arrived to the intensive care unit and the patient was started on diuretics. The patient was started on Lasix 40 mg IV push every 12 hours. The Cardizem drip was at 2.5 mg an hour and this was discontinued. She was started on higher dose amiodarone 200 mg by mouth 3 times a day. For now the patient is making excellent amount of urine output. She has diuresed aggressively. She is down to 6 L of oxygen nasal cannula. She does have some crackers in the mid and the lower lung tobias bilaterally. Her heart rate is under better control for now. She is alert and awake. No nausea. No vomiting. No pleurisy. No hemoptysis. No abdominal pain. She was in our hospital approximately 5 months ago for a bowel obstruction and back then the patient required extensive laparotomy and lysis of adhesions. She has been maintained on long-term anticoagulation with Eliquis. The echo from 2017 showed a preserved LV function with an ejection fraction of about 70% and the patient has moderate severe aortic stenosis with a peak gradient across the aortic valve of 89 mmHg and moderate degree of mitral stenosis. Currently she does not have any edema in the lower extremities. She has underlying dementia. She is also impaired hearing. Her other comorbidities include CAD, previous history of CVA, dementia , diabetes, hypertension, hyperlipidemia, previous CO and some residual left- sided weakness secondary to previous CVA. On today's evaluation of 05/08 2018, the patient is much more comfortable compared to yesterday. The patient has diuresed nicely without any major difficulties. The patient remains on IV Lasix. She is a negative fluid balance. She has limited active lung bases bilaterally. No respiratory distress. No cough sputum production. No fever chills or night sweats. Echocardiogram was repeated and the patient was found to have severe aortic stenosis. The peak gradient across the aortic valve is 88. There is also severe right-sided systolic pressure and pulmonary hypertension with a PA pressure of 70. She remains in atrial fibrillation. Rate is under good control for now the patient is currently on amiodarone 200 mg 3 times a day and metoprolol 12.5 mg by mouth twice a day. No hypotension. She is tolerating her diet. She is able to swallow. She is on long-term and to coagulation with Eliquis. Objective - Vital Signs Vital signs: Vital Signs Temp 97.8 F 05/08/18 12:00 Pulse 95 05/08/18 12:00 Resp 19 05/08/18 12:00 BP 85/55 05/08/18 12:00 Pulse Ox 94 L 05/08/18 12:00 Intake & Output 05/07/18 05/08/18 05/08/18 18:59 06:59 18:59 Intake Total 237.174 7871 150 Output Total 2250 3700 450 Balance -1748.833 -2550 -300 Weight 77.2 kg Intake: IV 500 750 150 Sodium Chloride 0.9% 1, 500 750 150 000 ml @ 10 mls/hr IV . Q24H [facility] Rx#:[id number] Intake, IV Titration 1.167 Amount Diltiazem 125 mg In 1.167 Sodium Chloride 0.9% 100 ml @ 5 MG/HR 5 mls/hr IV .Q24H [facility] Rx#:[id number] Oral 400 Output: Urine 2250 3700 450 Other: Voiding Method Indwelling Catheter Indwelling Catheter Indwelling Catheter - Exam General Appearance: Alert, cooperative, no distress, appears stated age. Severely confuse with significant dementia Neck HEENT: Supple, no lymphadenopathy, no thyroid enlargement, no carotid bruits. Lungs: Clear to auscultation without crackles or wheezes no rhonchi, no deformity. Chest Wall: Chest wall normal expansion with deep inspiration no tenderness and no deformity was found on exam, no costochondral pain or discomfort. The patient has crackles throughout considerably. Heart: Irregular rate and rhythm, S1, S2 normal, no murmur, rub or gallop. Positive 3/6 ejection systolic murmur in the Typical for aortic stenosis and 2/ 6 murmur better heard in the left second costal space mostly mitral regurgitation Back: Symmetric, no curvature, ROM normal, no CVA tenderness. Abdomen: Soft, non-tender, bowel sounds active all four quadrants, no masses, no organomegaly. Extremities: Extremities normal, atraumatic, no cyanosis or edema. Pulses: 2+ and symmetric. Skin: Skin color, texture, tugor normal, no rashes or lesions. Neurologic: Alert severely confuse moving all her 4 extremity generalized weakness no focal deficit. Patient has memory problems. The patient has difficulty with coordination and gait. - Labs CBC & Chem 7: 05/08/18 07:54 05/08/18 07:54 Labs: Abnormal Lab Results - Last 24 Hours (Table) 05/07/18 05/07/18 05/07/18 Range/Units 05:59 16:46 18:06 RBC (3.80-5.40) m/uL Hgb (11.4-16.0) gm/dL Hct (34.0-46.0) % BUN (7-17) mg/dL Glucose (74-99) mg/dL POC Glucose (mg/dL) 140 H (75-99) mg/dL Calcium (8.4-10.2) mg/dL AST (14-36) U/L Troponin I 10.500 H* (0.000-0.034) ng/mL Total Protein (6.3-8.2) g/dL Albumin (3.5-5.0) g/dL Triglycerides 152 H (<150) mg/dL HDL Cholesterol 36 L (40-60) mg/dL 05/07/18 05/08/18 05/08/18 Range/Units 20:08 06:48 07:54 RBC 3.60 L (3.80-5.40) m/uL Hgb 10.0 L (11.4-16.0) gm/dL Hct 30.6 L (34.0-46.0) % BUN (7-17) mg/dL Glucose (74-99) mg/dL POC Glucose (mg/dL) 160 H 170 H (75-99) mg/dL Calcium (8.4-10.2) mg/dL AST (14-36) U/L Troponin I (0.000-0.034) ng/mL Total Protein (6.3-8.2) g/dL Albumin (3.5-5.0) g/dL Triglycerides (<150) mg/dL HDL Cholesterol (40-60) mg/dL 05/08/18 05/08/18 05/08/18 Range/Units 07:54 07:54 11:52 RBC (3.80-5.40) m/uL Hgb (11.4-16.0) gm/dL Hct (34.0-46.0) % BUN 27 H (7-17) mg/dL Glucose 237 H (74-99) mg/dL POC Glucose (mg/dL) 251 H (75-99) mg/dL Calcium 8.3 L (8.4-10.2) mg/dL AST 73 H (14-36) U/L Troponin I 4.800 H* (0.000-0.034) ng/mL Total Protein 5.9 L (6.3-8.2) g/dL Albumin 3.3 L (3.5-5.0) g/dL Triglycerides (<150) mg/dL HDL Cholesterol (40-60) mg/dL Microbiology - Last 24 Hours (Table) 05/07/18 14:00 Urine Culture - Preliminary Urine,Catheterized Assessment and Plan Plan: Assessment 1 acute pulmonary edema with secondary acute hypoxic respiratory failure, improved and the patient has been weaned down to 43 oxygen nasal cannula. Much less crackles in the lung bases bilaterally. 2 chronic atrial fibrillation with rapid ventricular response at a time of admission, heart rate is under better control, currently on oral medical condition with Eliquis 3 severe aortic stenosis with mitral stenosis based on the previous echocardiogram from 2017, and the repeat echo cardiac exam showed a new aortic stenosis and severe pulmonary hypertension. 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 Continue amiodarone. Continue metoprolol. Continue Eliquis. Wean down the FiO2 to maintain a saturation above 90%. Kept on IV fluids to KVO. Advance diet. We'll follow.
--- NOTE | 2018-05-08 15:36 | P.PN ---
Subjective Progress Note Date: 05/08/18 This is a 87-year-old female with history of aortic stenosis who was admitted to the hospital with CHF and atrial fibrillation with rapid ventricular response. Patient was treated with IV Lasix. She is also on by mouth amiodarone along with beta joaquin. Patient diuresed very well since yesterday. Her blood pressures running low. She seemed to be less short of breath. Chest examination showed rales bilaterally. Patient has evidence of previous CVA with residual weakness. Doesn't appear to be in acute distress. IV Lasix is being discontinued. Her troponin values went up to 10 suggestive of myocardial injury. Patient also has evidence of possible apical ballooning syndrome. At this point we'll continue current medical therapy. Further recommendations depend upon clinical course Objective - Vital Signs Vital signs: Vital Signs Temp 97.8 F 05/08/18 12:00 Pulse 103 H 05/08/18 14:46 Resp 19 05/08/18 12:00 BP 85/55 05/08/18 12:00 Pulse Ox 94 L 05/08/18 12:00 Intake & Output 05/07/18 05/08/18 05/08/18 18:59 06:59 18:59 Intake Total 334.053 2348 150 Output Total 2250 3700 450 Balance -1748.833 -2550 -300 Weight 77.2 kg Intake: IV 500 750 150 Sodium Chloride 0.9% 1, 500 750 150 000 ml @ 10 mls/hr IV . Q24H [facility] Rx#:[id number] Intake, IV Titration 1.167 Amount Diltiazem 125 mg In 1.167 Sodium Chloride 0.9% 100 ml @ 5 MG/HR 5 mls/hr IV .Q24H [facility] Rx#:[id number] Oral 400 Output: Urine 2250 3700 450 Other: Voiding Method Indwelling Catheter Indwelling Catheter Indwelling Catheter - Exam GENERAL EXAM: Patient is alert and oriented and doesn't appear to be in any acute distress HEENT: Normocephalic. Normal reaction of pupils, equal size, normal range of extraocular motion. No erythema or exudates in the throat. NECK: No masses, no nuchal rigidity. CHEST: No chest wall deformity. LUNGS: Bilateral lower lobe rales. HEART: S1 and S2 normal . Systolic murmur heard ABDOMEN: No hepatosplenomegaly, normal bowel sounds, no guarding or rigidity. SKIN: No rashes CENTRAL NERVOUS SYSTEM: No focal deficits. EXTREMITIES: Resolving edema - Labs CBC & Chem 7: 05/08/18 07:54 05/08/18 07:54 Labs: Abnormal Lab Results - Last 24 Hours (Table) 05/07/18 05/07/18 05/07/18 Range/Units 05:59 16:46 18:06 RBC (3.80-5.40) m/uL Hgb (11.4-16.0) gm/dL Hct (34.0-46.0) % BUN (7-17) mg/dL Glucose (74-99) mg/dL POC Glucose (mg/dL) 140 H (75-99) mg/dL Calcium (8.4-10.2) mg/dL AST (14-36) U/L Troponin I 10.500 H* (0.000-0.034) ng/mL Total Protein (6.3-8.2) g/dL Albumin (3.5-5.0) g/dL Triglycerides 152 H (<150) mg/dL HDL Cholesterol 36 L (40-60) mg/dL 05/07/18 05/08/18 05/08/18 Range/Units 20:08 06:48 07:54 RBC 3.60 L (3.80-5.40) m/uL Hgb 10.0 L (11.4-16.0) gm/dL Hct 30.6 L (34.0-46.0) % BUN (7-17) mg/dL Glucose (74-99) mg/dL POC Glucose (mg/dL) 160 H 170 H (75-99) mg/dL Calcium (8.4-10.2) mg/dL AST (14-36) U/L Troponin I (0.000-0.034) ng/mL Total Protein (6.3-8.2) g/dL Albumin (3.5-5.0) g/dL Triglycerides (<150) mg/dL HDL Cholesterol (40-60) mg/dL 05/08/18 05/08/18 05/08/18 Range/Units 07:54 07:54 11:52 RBC (3.80-5.40) m/uL Hgb (11.4-16.0) gm/dL Hct (34.0-46.0) % BUN 27 H (7-17) mg/dL Glucose 237 H (74-99) mg/dL POC Glucose (mg/dL) 251 H (75-99) mg/dL Calcium 8.3 L (8.4-10.2) mg/dL AST 73 H (14-36) U/L Troponin I 4.800 H* (0.000-0.034) ng/mL Total Protein 5.9 L (6.3-8.2) g/dL Albumin 3.3 L (3.5-5.0) g/dL Triglycerides (<150) mg/dL HDL Cholesterol (40-60) mg/dL Microbiology - Last 24 Hours (Table) 05/07/18 14:00 Urine Culture - Preliminary Urine,Catheterized Assessment and Plan (1) Atrial fibrillation with RVR Current Visit: Yes Status: Acute Code(s): I48.91 - UNSPECIFIED ATRIAL FIBRILLATION SNOMED Code(s): 278592723733405 (2) Aortic stenosis Current Visit: No Status: Acute Code(s): I35.0 - NONRHEUMATIC AORTIC (VALVE ) STENOSIS SNOMED Code(s): 57062906 (3) CVA (cerebral vascular accident) Current Visit: No Status: Acute Code(s): I63.9 - CEREBRAL INFARCTION, UNSPECIFIED SNOMED Code(s): 300691852 (4) Elevated troponin Current Visit: No Status: Acute Code(s): R74.8 - ABNORMAL LEVELS OF OTHER SERUM ENZYMES SNOMED Code(s): 150418910 (5) 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 Rest of the medication to be continued. Further examination depend upon clinical course
[2018-05-08 16:55] LABS: Glucose,Whole Blood 144 mg/dL (75-99)
[2018-05-08 20:07] LABS: Glucose,Whole Blood 164 mg/dL (75-99)
[2018-05-08] MEDS: ATORVASTATIN 80 MG TAB PO SCH (21:18)
[2018-05-08] MEDS: TEMAZEPAM 15 MG CAP PO PRN (22:14)
[2018-05-09 05:18] LABS: HCT 28.7 % (34.0-46.0); HGB 9.6 gm/dL (11.4-16.0); MCH 28.1 pg (25.0-35.0); MCHC 33.5 g/dL (31.0-37.0); Mean Platelet Volume 7.4; Platelet Count 260 k/uL (150-450); RBC 3.42 m/uL (3.80-5.40); RDW 15.4 % (11.5-15.5); WBC 8.8 k/uL (3.8-10.6)
[2018-05-09 05:32] LABS: Albumin 2.9 g/dL (3.5-5.0); Calcium 8.2 mg/dL (8.4-10.2); Potassium 4.8 mmol/L (3.5-5.1); Total Bilirubin 1.4 mg/dL (0.2-1.3); Total Protein 5.6 g/dL (6.3-8.2)
[2018-05-09 06:34] LABS: Glucose,Whole Blood 158 mg/dL (75-99)
[2018-05-09] MEDS: INSULIN ASPART (NovoLOG) 100 UNIT/ML VIAL SQ SCH ×4 (06:35→20:59)
[2018-05-09] MEDS: PANTOPRAZOLE 40 MG TABLET PO SCH (06:35)
[2018-05-09] MEDS: IPRATROPIUM-ALBUTEROL 3 ML NEB INHALATION SCH ×3 (08:17→20:17)
[2018-05-09] MEDS: CHOLECALCIFEROL 1,000 UNIT TAB PO SCH (09:28)
[2018-05-09] MEDS: AMIODARONE 200 MG TAB PO SCH ×3 (09:28→20:59)
[2018-05-09] MEDS: METOPROLOL TARTRATE 12.5 MG TAB PO SCH ×2 (09:28→20:59)
[2018-05-09] MEDS: APIXABAN 2.5 MG TABLET PO SCH ×2 (09:28→20:59)
[2018-05-09] MEDS: ASPIRIN 81 MG PO SCH (09:28)
[2018-05-09] MEDS: metFORMIN 500 MG TAB PO SCH ×2 (10:52→17:10)
[2018-05-09] MEDS: FUROSEMIDE 40 MG TAB PO SCH (10:53)
--- NOTE | 2018-05-09 10:55 | P.PN ---
Subjective This is a pleasant 87-year-old female past medical history significant for aortic stenosis admitted to the hospital with cardiac congestive heart failure and atrial fibrillation with rapid ventricular stopped. She has seen and examined on telemetry floor sitting up in bed in no acute distress. She denies symptoms of chest discomfort, shortness of breath, dizziness or palpitations. IV Lasix was discontinued yesterdayshe has been transitioned to oral Lasix 40 mg daily currently maintained on amiodarone 200 mg 3 times a day, Eliquis 2.5 mg twice a day, aspirin 81 mg daily, atorvastatin 80 mg daily, Lopressor 12.5 mg twice a day. Laboratory data reviewed, WBC 8.8, hemoglobin 6, platelets 260, sodium 132, potassium 4.8, creatinine 0.78, magnesium 2.0. GENERAL: Well-appearing, well-nourished and in no acute distress. NECK: Supple without JVD or thyromegaly. LUNGS: Diminshed bilaterally. Faint rales, no wheezes or rhonchi. Respiration equal and unlabored. HEART: Irregular rate and rhythm with systolic ejection murmur, no rubs or gallops. S1 and S2 heard. EXTREMITIES: Normal range of motion, trace lower extremity edema. No clubbing or cyanosis. Peripheral pulses intact. ASSESSMENT Chronic atrial fibrillation, with controlled rate currently Aotic stenosis Pulmonary hypertension Combined acute on chronic systolic and diastolic heart failure secondary to valvular heart disease History of CVA Diabetes mellitus PLAN Continue current medical regimen. Agree with adding lasix 40 mg PO today. Further recommendations to follow based on clinical course. Nurse Practitioner note has been reviewed, I agree with a documented findings and plan of care. Patient was seen and examined. Objective - Vital Signs Vital signs: Vital Signs Temp 97.4 F L 05/09/18 04:00 Pulse 108 H 05/09/18 08:24 Resp 16 05/09/18 04:00 BP 110/51 05/09/18 04:00 Pulse Ox 96 05/09/18 04:00 Intake & Output 05/08/18 05/09/18 05/09/18 18:59 06:59 18:59 Intake Total 190 130 240 Output Total 840 1060 420 Balance -650 930 -180 Weight 78.8 kg Intake: IV 190 130 Sodium Chloride 0.9% 1, 190 130 000 ml @ 10 mls/hr IV . Q24H [facility] Rx#:[id number] Oral 240 Output: Urine 840 1060 420 Uretheral (Menon) 210 Other: Voiding Method Indwelling Catheter Indwelling Catheter # Voids 0 - Labs CBC & Chem 7: 05/09/18 04:52 05/09/18 04:52 Labs: Abnormal Lab Results - Last 24 Hours (Table) 05/08/18 05/08/18 05/08/18 Range/Units 11:52 16:44 20:05 RBC (3.80-5.40) m/uL Hgb (11.4-16.0) gm/dL Hct (34.0-46.0) % Sodium (137-145) mmol/L BUN (7-17) mg/dL Glucose (74-99) mg/dL POC Glucose (mg/dL) 251 H 144 H 164 H (75-99) mg/dL Calcium (8.4-10.2) mg/dL Total Bilirubin (0.2-1.3) mg/dL AST (14-36) U/L Total Protein (6.3-8.2) g/dL Albumin (3.5-5.0) g/dL 05/09/18 05/09/18 05/09/18 Range/Units 04:52 04:52 06:32 RBC 3.42 L (3.80-5.40) m/uL Hgb 9.6 L (11.4-16.0) gm/dL Hct 28.7 L (34.0-46.0) % Sodium 132 L (137-145) mmol/L BUN 28 H (7-17) mg/dL Glucose 152 H (74-99) mg/dL POC Glucose (mg/dL) 158 H (75-99) mg/dL Calcium 8.2 L (8.4-10.2) mg/dL Total Bilirubin 1.4 H (0.2-1.3) mg/dL AST 51 H (14-36) U/L Total Protein 5.6 L (6.3-8.2) g/dL Albumin 2.9 L (3.5-5.0) g/dL Microbiology - Last 24 Hours (Table) 05/07/18 14:00 Urine Culture - Final Urine,Catheterized
[2018-05-09 11:12] VITALS: RESP 18
--- NOTE | 2018-05-09 11:24 | P.PN ---
Subjective Progress Note Date: 05/09/18 87-year-old female from [facility] on leg who brought to [facility] today because of episode of tachycardia with rapid ventricular response found to have pulse rate running 100 5260 beats per minutes around 3:00 after midnight the same time patient was complaining of worsening with increased chest pain with minimum exertion at the time associated with palpitation, cold sweat, nausea with no vomiting. Even she had advanced dementia Complaining to the caregiver about her symptoms ended up being sent to the emergency department at the time her pulse rate was running over 140 bpm irregular her CK with troponin was negative. Patient is on anticoagulation for A. fib she was started on Cardizem drip and admitted to the hospital for the above problem. 05/08: Patient is an overflow in the intensive care unit. Yesterday, patient developed acute respiratory distress and IV Lasix was started. Patient has diuresed well and lungs are clear at this time. Lasix will be discontinued for now. She states she is feeling good now. She did not sleep well during the night was up about every hour. She has had good urine output at about 100 MLS per hour. She is had 2-3 bowel movements yesterday. Her breathing is improved. She has been seen by cardiology and was started on Lopressor for rate control and amiodarone was increased to 200 mg 3 times daily. Patient was off Cardizem drip yesterday for hypotension. 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 Patient has also been seen by Dr. Duran with plan to maintain O2 saturations at 90%, eliquis was restarted Robitussin added for cough. Menon catheter was also placed yesterday. Repeat troponins was 10.5 and 4.8. Her blood glucose running between 160 and 237. 05/09: Patient is seen today on the cardiac stepdown unit. residential monitor his atrial fibrillation rate in the low 100s, blood pressure 110/51, afebrile, pulse ox 96% on 3 L nasal cannula. White count is normal, hemoglobin 9.6, creatinine 0.78, sodium 132. Blood sugars running between 144 and 164. AST 51. Patient is currently on increased dose of amiodarone and Lopressor for rate control. She has been started on oral Lasix by Dr. Trivedi in. Patient denies any new complaints. She denies any shortness of breath. We will plan for Menon to be removed today. Most likely should be ready for discharge tomorrow. Review of Systems CONSTITUTIONAL: Well-developed no acute respiratory distress. No fever no chills EYES: No icterus sclerae, no conjunctivitis. EARS, NOSE, MOUTH, THROAT, and FACE: No sore throat, lymphadenopathy, carotid bruits or deformity. RESPIRATORY: Denies shortness of breath with cough no wheezes. CARDIOVASCULAR: Denies chest pain, palpitation, orthopnea and angina. GASTROINTESTINAL: No Abd pain, Nausea or vomiting, no Diarrhea or constipation, No GI Bleed, no distention or masses. GENITOURINARY: Negative for Hematuria or UTI, no kidney stones. INTEGUMENT/BREAST: Negative for any muscular injury with mild osteoarthritis.. HEMATOLOGIC/LYMPHATIC: Negative for bleed or purpura. MUSCULOSKELTAL: Negative for Myalgia or arthralgia. NEURLOGICAL: No LOC, Sz or syncope, blurred vision dizziness or abnormality. Advance dementia. BEHAVIORAL/PSYCH: Negative. ENDOCRINE: Negative. Objective - Vital Signs Vital signs: Vital Signs Temp 97.4 F L 05/09/18 04:00 Pulse 108 H 05/09/18 08:24 Resp 16 05/09/18 04:00 BP 110/51 05/09/18 04:00 Pulse Ox 96 05/09/18 04:00 Intake & Output 05/08/18 05/09/18 05/09/18 18:59 06:59 18:59 Intake Total 190 130 Output Total 840 1060 Balance -650 -930 Weight 78.8 kg Intake: IV 190 130 Sodium Chloride 0.9% 1, 190 130 000 ml @ 10 mls/hr IV . Q24H [facility] Rx#:[id number] Output: Urine 840 1060 Other: Voiding Method Indwelling Catheter Indwelling Catheter - Exam General Appearance: Alert, cooperative, no distress, appears stated age. No acute distress. Patient is resting in bed. Neck HEENT: Supple, no lymphadenopathy, no thyroid enlargement, no carotid bruits. Lungs: Clear to auscultation without crackles or wheezes no rhonchi, no deformity. Chest Wall: Chest wall normal expansion with deep inspiration no tenderness and no deformity was found on exam, no costochondral pain or discomfort. Heart: Irregular rate and rhythm, S1, S2 normal, no murmur, rub or gallop. Positive 3/6 ejection systolic murmur in the Typical for aortic stenosis and 2/ 6 murmur better heard in the left second costal space mostly mitral stenosis Back: Symmetric, no curvature, ROM normal, no CVA tenderness. Abdomen: Soft, non-tender, bowel sounds active all four quadrants, no masses, no organomegaly. Extremities: Extremities normal, atraumatic, no cyanosis or edema. Pulses: 2+ and symmetric. Skin: Skin color, texture, tugor normal, no rashes or lesions. Neurologic: Alert and oriented 3 generalized weakness no focal deficit. - Labs CBC & Chem 7: 05/09/18 04:52 05/09/18 04:52 Labs: Abnormal Lab Results - Last 24 Hours (Table) 05/08/18 05/08/18 05/08/18 Range/Units 07:54 07:54 11:52 RBC (3.80-5.40) m/uL Hgb (11.4-16.0) gm/dL Hct (34.0-46.0) % Sodium (137-145) mmol/L BUN 27 H (7-17) mg/dL Glucose (74-99) mg/dL POC Glucose (mg/dL) 251 H (75-99) mg/dL Calcium (8.4-10.2) mg/dL Total Bilirubin (0.2-1.3) mg/dL AST (14-36) U/L Troponin I 4.800 H* (0.000-0.034) ng/mL Total Protein (6.3-8.2) g/dL Albumin (3.5-5.0) g/dL 05/08/18 05/08/18 05/09/18 Range/Units 16:44 20:05 04:52 RBC (3.80-5.40) m/uL Hgb (11.4-16.0) gm/dL Hct (34.0-46.0) % Sodium 132 L (137-145) mmol/L BUN 28 H (7-17) mg/dL Glucose 152 H (74-99) mg/dL POC Glucose (mg/dL) 144 H 164 H (75-99) mg/dL Calcium 8.2 L (8.4-10.2) mg/dL Total Bilirubin 1.4 H (0.2-1.3) mg/dL AST 51 H (14-36) U/L Troponin I (0.000-0.034) ng/mL Total Protein 5.6 L (6.3-8.2) g/dL Albumin 2.9 L (3.5-5.0) g/dL 05/09/18 05/09/18 Range/Units 04:52 06:32 RBC 3.42 L (3.80-5.40) m/uL Hgb 9.6 L (11.4-16.0) gm/dL Hct 28.7 L (34.0-46.0) % Sodium (137-145) mmol/L BUN (7-17) mg/dL Glucose (74-99) mg/dL POC Glucose (mg/dL) 158 H (75-99) mg/dL Calcium (8.4-10.2) mg/dL Total Bilirubin (0.2-1.3) mg/dL AST (14-36) U/L Troponin I (0.000-0.034) ng/mL Total Protein (6.3-8.2) g/dL Albumin (3.5-5.0) g/dL Microbiology - Last 24 Hours (Table) 05/07/18 14:00 Urine Culture - Final Urine,Catheterized Assessment and Plan Plan: 1 A. fib with RVR with chronic atrial fibrillation, currently rate controlled. Cardiology consult appreciated. Amiodarone increased 200 mg 3 times daily and started Lopressor 12.5 mg twice daily, continue eliquis 2.5 mg twice daily. 2 unstable angina with elevated troponins. Cardiology on consult 3 acute hypoxic respiratory failure secondary to A. fib with RVR and acute systolic heart failure and fluid overload with known aortic stenosis and LV outlet obstruction. Patient required IV fluids which will be discontinued today. Echocardiogram as above. Lasix 40 mg oral daily. 4 valvular heart disease: Patient had severe aortic stenosis and mild mitral stenosis. Patient is not surgical candidate. 5 diabetes diabetes2: On metformin 500 mg twice a day we will continue Accu- Chek with sliding scales coverage. 6 Hypothyroidism: Most likely brought by amiodarone at this point patient is not on any medication will add free T4 to her testing and if needed smaller dose of Synthroid might be beneficial. 7 hyperlipidemia: Has been on atorvastatin 80 mg daily. 8 incontinence: Has been on Detrol. 9 reactive airway/COPD: Patient remain on albuterol/ipratropium. 10 severe GERD/GI prophylaxis: Remain on pantoprazole 40 mg daily. 11 dementia: Alzheimer type with slight with worsening lately. Still not on any medication. CODE STATUS: DO NOT RESUSCITATE. Discharge plan: Return to [facility] on Thursday under the care of Dr. Cardenas Impression and plan of care have been directed as dictated by the signing physician. Isamar Clinton nurse practitioner acting as scribe for signing physician.
[2018-05-09 11:40] LABS: Glucose,Whole Blood 186 mg/dL (75-99)
[2018-05-09] MEDS: MULTIVITAMINS, THERA 1 EACH TAB PO SCH (11:56)
--- NOTE | 2018-05-09 13:59 | P.PN ---
Subjective Progress Note Date: 05/09/18 87-year-old female patient who is a half-way resident and she resides at [facility] on the [place], woke up yesterday with increased shortness of breath. She was found to be tachycardic and she was having some chest pain and shortness of breath. She was found in A. fib with RVR and the heart rate was in the range of 160. She presented to the emergency department and the patient was given 50 mg of Cardizem bolus and she was given fluids 3 L of normal saline as the patient became hypotensive following the Cardizem. Subsequently, the patient was maintained on normal saline at the rate of 75 mL an hour. The patient went into natalie pulmonary edema and she became even more short of breath. She arrived to the intensive care unit and the patient was started on diuretics. The patient was started on Lasix 40 mg IV push every 12 hours. The Cardizem drip was at 2.5 mg an hour and this was discontinued. She was started on higher dose amiodarone 200 mg by mouth 3 times a day. For now the patient is making excellent amount of urine output. She has diuresed aggressively. She is down to 6 L of oxygen nasal cannula. She does have some crackers in the mid and the lower lung tobias bilaterally. Her heart rate is under better control for now. She is alert and awake. No nausea. No vomiting. No pleurisy. No hemoptysis. No abdominal pain. She was in our hospital approximately 5 months ago for a bowel obstruction and back then the patient required extensive laparotomy and lysis of adhesions. She has been maintained on long-term anticoagulation with Eliquis. The echo from 2017 showed a preserved LV function with an ejection fraction of about 70% and the patient has moderate severe aortic stenosis with a peak gradient across the aortic valve of 89 mmHg and moderate degree of mitral stenosis. Currently she does not have any edema in the lower extremities. She has underlying dementia. She is also impaired hearing. Her other comorbidities include CAD, previous history of CVA, dementia , diabetes, hypertension, hyperlipidemia, previous AR and some residual left- sided weakness secondary to previous CVA. On today's evaluation of 05/08 2018, the patient is much more comfortable compared to yesterday. The patient has diuresed nicely without any major difficulties. The patient remains on IV Lasix. She is a negative fluid balance. She has limited active lung bases bilaterally. No respiratory distress. No cough sputum production. No fever chills or night sweats. Echocardiogram was repeated and the patient was found to have severe aortic stenosis. The peak gradient across the aortic valve is 88. There is also severe right-sided systolic pressure and pulmonary hypertension with a PA pressure of 70. She remains in atrial fibrillation. Rate is under good control for now the patient is currently on amiodarone 200 mg 3 times a day and metoprolol 12.5 mg by mouth twice a day. No hypotension. She is tolerating her diet. She is able to swallow. She is on long-term and to coagulation with Eliquis. On 05/09/2018, the patient is doing extremely well. She has no specific complaints. She was taken off IV Lasix yesterday. She also got moved out of the intensive care unit after being treated for an acute pulmonary edema. He is back to her baseline. I would suggest restarting oral Lasix 40 mg by mouth daily. Her cardiac rhythm is atrial fibrillation. The rate is controlled. The patient is on a combination of amiodarone and metoprolol for rate control. She is also on long-term anticoagulation with Eliquis. No nausea. No vomiting. No abdominal pain. No altered mentation. No other complaints otherwise for now. Objective - Vital Signs Vital signs: Vital Signs Temp 97.8 F 05/09/18 11:50 Pulse 99 05/09/18 12:33 Resp 18 05/09/18 11:50 BP 109/82 05/09/18 11:50 Pulse Ox 98 05/09/18 11:50 Intake & Output 05/08/18 05/09/18 05/09/18 18:59 06:59 18:59 Intake Total 190 130 360 Output Total 840 1060 420 Balance -650 -930 -60 Weight 78.8 kg Intake: IV 190 130 Sodium Chloride 0.9% 1, 190 130 000 ml @ 10 mls/hr IV . Q24H EPIFANIO Rx#:[id number] Oral 360 Output: Urine 840 1060 420 Uretheral (Menon) 210 Other: Voiding Method Indwelling Catheter Indwelling Catheter Indwelling Catheter # Voids 0 - Exam General Appearance: Alert, cooperative, no distress, appears stated age. Severely confuse with significant dementia Neck HEENT: Supple, no lymphadenopathy, no thyroid enlargement, no carotid bruits. Lungs: Clear to auscultation without crackles or wheezes no rhonchi, no deformity. Chest Wall: Chest wall normal expansion with deep inspiration no tenderness and no deformity was found on exam, no costochondral pain or discomfort. The patient has crackles throughout considerably. Heart: Irregular rate and rhythm, S1, S2 normal, no murmur, rub or gallop. Positive 3/6 ejection systolic murmur in the Typical for aortic stenosis and 2/ 6 murmur better heard in the left second costal space mostly mitral regurgitation Back: Symmetric, no curvature, ROM normal, no CVA tenderness. Abdomen: Soft, non-tender, bowel sounds active all four quadrants, no masses, no organomegaly. Extremities: Extremities normal, atraumatic, no cyanosis or edema. Pulses: 2+ and symmetric. Skin: Skin color, texture, tugor normal, no rashes or lesions. Neurologic: Alert severely confuse moving all her 4 extremity generalized weakness no focal deficit. Patient has memory problems. The patient has difficulty with coordination and gait. - Labs CBC & Chem 7: 05/09/18 04:52 05/09/18 04:52 Labs: Abnormal Lab Results - Last 24 Hours (Table) 05/08/18 05/08/18 05/09/18 Range/Units 16:44 20:05 04:52 RBC (3.80-5.40) m/uL Hgb (11.4-16.0) gm/dL Hct (34.0-46.0) % Sodium 132 L (137-145) mmol/L BUN 28 H (7-17) mg/dL Glucose 152 H (74-99) mg/dL POC Glucose (mg/dL) 144 H 164 H (75-99) mg/dL Calcium 8.2 L (8.4-10.2) mg/dL Total Bilirubin 1.4 H (0.2-1.3) mg/dL AST 51 H (14-36) U/L Total Protein 5.6 L (6.3-8.2) g/dL Albumin 2.9 L (3.5-5.0) g/dL 05/09/18 05/09/18 05/09/18 Range/Units 04:52 06:32 11:31 RBC 3.42 L (3.80-5.40) m/uL Hgb 9.6 L (11.4-16.0) gm/dL Hct 28.7 L (34.0-46.0) % Sodium (137-145) mmol/L BUN (7-17) mg/dL Glucose (74-99) mg/dL POC Glucose (mg/dL) 158 H 186 H (75-99) mg/dL Calcium (8.4-10.2) mg/dL Total Bilirubin (0.2-1.3) mg/dL AST (14-36) U/L Total Protein (6.3-8.2) g/dL Albumin (3.5-5.0) g/dL Microbiology - Last 24 Hours (Table) 05/07/18 14:00 Urine Culture - Final Urine,Catheterized Assessment and Plan Plan: Assessment 1 acute shortness of breath secondary to pulmonary edema, improved with diuretics. 2 chronic atrial fibrillation with rapid ventricular response at a time of admission, heart rate is under better control, currently on oral medical condition with Eliquis 3 severe aortic stenosis with mitral stenosis based on the previous echocardiogram from 2017, and the repeat echo cardiac exam showed a new aortic stenosis and severe pulmonary hypertension. 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 Monitor the cardiac rhythm. Rate is controlled. Continue anticoagulation with Eliquis. Continue DuoNeb dressings [id number]. No active pulmonary or critical care issue. The patient got released from the ICU yesterday and she is currently on a telemetry unit. Pulmonary critical care services we'll sign off.
[2018-05-09 16:32] LABS: Glucose,Whole Blood 124 mg/dL (75-99)
[2018-05-09] MEDS: SODIUM CHLORIDE 0.9% 1,000 ML IV SCH (17:10)
[2018-05-09 20:34] LABS: Glucose,Whole Blood 180 mg/dL (75-99)
[2018-05-09] MEDS: ATORVASTATIN 80 MG TAB PO SCH (20:59)
[2018-05-09] MEDS: TEMAZEPAM 15 MG CAP PO PRN (20:59)
[2018-05-09] MEDS: FUROSEMIDE 10 MG/ML 4 ML VIAL IV SCH (21:23)
[2018-05-10 05:38] VITALS: TEMP 97.7
[2018-05-10 05:45] LABS: Glucose,Whole Blood 174 mg/dL (75-99)
[2018-05-10] MEDS: PANTOPRAZOLE 40 MG TABLET PO SCH (06:27)
[2018-05-10] MEDS: INSULIN ASPART (NovoLOG) 100 UNIT/ML VIAL SQ SCH ×2 (06:27→13:15)
[2018-05-10] MEDS: IPRATROPIUM-ALBUTEROL 3 ML NEB INHALATION SCH ×2 (08:27→13:19)
--- NOTE | 2018-05-10 08:29 | P.DS ---
Providers Date of admission: 05/07/18 06:46 Expected date of discharge: 05/10/18 Attending physician: Giles Avila Consults: 05/07/18 06:44 Consult Physician Urgent Consulting Provider: Jennifer Wright Consult Reason/Comments: afib Do you want consulting provider notified?: Yes 05/07/18 14:25 Consult Physician Urgent Consulting Provider: Becca Edmonds Consult Reason/Comments: pulmonary edema Do you want consulting provider notified?: Yes Primary care physician: Kitty Cardenas Hospital Course: 87-year-old female from [facility] on leg who [facility] today because of episode of tachycardia with rapid ventricular response found to have pulse rate running 100 5260 beats per minutes around 3:00 after midnight the same time patient was complaining of worsening with increased chest pain with minimum exertion at the time associated with palpitation, cold sweat, nausea with no vomiting. Even she had advanced dementia Complaining to the caregiver about her symptoms ended up being sent to the emergency department at the time her pulse rate was running over 140 bpm irregular her CK with troponin was negative. Patient is on anticoagulation for A. fib she was started on Cardizem drip and admitted to the hospital for the above problem. 3: Patient is an overflow in the intensive care unit. Yesterday, patient developed acute respiratory distress and IV Lasix was started. Patient has diuresed well and lungs are clear at this time. Lasix will be discontinued for now. She states she is feeling good now. She did not sleep well during the night was up about every hour. She has had good urine output at about 100 MLS per hour. She is had 2-3 bowel movements yesterday. Her breathing is improved. She has been seen by cardiology and was started on Lopressor for rate control and amiodarone was increased to 200 mg 3 times daily. Patient was off Cardizem drip yesterday for hypotension. 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 Patient has also been seen by Dr. Duran with plan to maintain O2 saturations at 90%, eliquis was restarted Robitussin added for cough. Menon catheter was also placed yesterday. Repeat troponins was 10.5 and 4.8. Her blood glucose running between 160 and 237. 05/09: Patient is seen today on the cardiac stepdown unit. quality assurance monitor chassis his atrial fibrillation rate in the low 100s, blood pressure 110/51, afebrile, pulse ox 96% on 3 L nasal cannula. White count is normal, hemoglobin 9.6, creatinine 0.78, sodium 132. Blood sugars running between 144 and 164. AST 51. Patient is currently on increased dose of amiodarone and Lopressor for rate control. She has been started on oral Lasix by Dr. Edmonds. Patient denies any new complaints. She denies any shortness of breath. We will plan for Menon to be removed today. Most likely should be ready for discharge tomorrow. 05/10: Heart rate is running 80s to 116. Pulse ox 95% on 3 L, blood pressure 93/ 62, afebrile. quality assurance monitor chassis is A. fib. Patient denies any shortness of breath, chest pain. Daughter is concerned because patient complained of feeling like food wasn't going down her food pipe after breakfast this morning. Patient states that she has had this sensation for a long time usually after lunch only. 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 This results in moderate grade intraesophageal reflux and multifocal's contrast stasis. No focal stricture or obstruction. No hiatal hernia. Speech therapy consultation is recommended to evaluate the oropharyngeal phase given this patient's described complaining of upper airway dysphagia. Patient will need small frequent meals and we will ask for speech to follow patient at the senior care. Patient will be discharged back to [facility] today in stable condition. Discharge diagnoses: 1 A. fib with RVR with chronic atrial fibrillation, currently rate controlled. 2 unstable angina with elevated troponins. 3 acute hypoxic respiratory failure secondary to A. fib with RVR and acute systolic heart failure and fluid overload with known aortic stenosis and LV outlet obstruction. 4 valvular heart disease: Patient had severe aortic stenosis and mild mitral stenosis. 5 diabetes diabetes2 6 Hypothyroidism, recheck labs in 6 weeks 7 hyperlipidemia: 8 incontinence 9 reactive airway/COPD 10 severe GERD 11 dementia: Alzheimer type Discharge plan: Return to [facility] on Thursday under the care of Dr. Cardenas Impression and plan of care have been directed as dictated by the signing physician. Isamar Clinton nurse practitioner acting as scribe for signing physician. Patient Condition at Discharge: Good Plan - Discharge Summary Discharge Rx Participant: No New Discharge Prescriptions: New Amiodarone [Cordarone] 200 mg PO TID tab Aspirin 81 mg PO DAILY chew Furosemide [Lasix] 40 mg PO DAILY tab Metoprolol Tartrate [Lopressor] 12.5 mg PO BID tab Continue Multivitamins, Thera [Multivitamin (formulary)] 1 tab PO DAILY Docusate [Colace] 100 mg PO Q48H Cholecalciferol [Vitamin D3] 1,000 unit PO DAILY Apixaban [Eliquis] 2.5 mg PO BID #60 tab Atorvastatin [Lipitor] 80 mg PO HS Tolterodine Tartrate [Detrol LA] 4 mg PO HS Ferrous Sulfate [Iron (65 MG Elemental)] 325 mg PO AC-BID@0900,1700 Ipratropium-Albuterol Nebulize [Duoneb 0.5 mg-3 mg/3 ml Soln] 3 ml INHALATION RT-Q2H PRN ampul.neb PRN Reason: Shortness Of Breath Or Wheezing Ipratropium-Albuterol Nebulize [Duoneb 0.5 mg-3 mg/3 ml Soln] 3 ml INHALATION RT-TID metFORMIN HCL [Metformin HCl] 500 mg PO BID@0800,1700 Melatonin 5 mg PO HS PRN PRN Reason: Insomnia Mylanta 30 ml PO Q4H PRN PRN Reason: Gi Upset Lactobacillus Acidophilus [Acidophilus] 1 tab PO Q48H Glucerna Shake 1 can PO DAILY@2000 guaiFENesin [Mucinex] 600 mg PO BID PRN PRN Reason: CONGESTED COUGH House Sooth & Cool Powder 1 applic TOPICAL Q12H Pantoprazole [Protonix] 40 mg PO DAILY Discontinued Amiodarone [Cordarone] 100 mg PO DAILY #30 tab Pantoprazole Sodium [Protonix] 40 mg PO DAILY Furosemide [Lasix] 40 mg PO MOWEFR@1400 Furosemide [Lasix] 40 mg PO DAILY@0600 Discharge Medication List Cholecalciferol [Vitamin D3] 1,000 unit PO DAILY 07/20/16 [History] Docusate [Colace] 100 mg PO Q48H 07/20/16 [History] Multivitamins, Thera [Multivitamin (formulary)] 1 tab PO DAILY 07/20/16 [History ] Apixaban [Eliquis] 2.5 mg PO BID #60 tab 08/18/16 [Rx] Atorvastatin [Lipitor] 80 mg PO HS 11/19/16 [History] Ferrous Sulfate [Iron (65 MG Elemental)] 325 mg PO AC-BID@0900,1700 12/19/17 [ History] Tolterodine Tartrate [Detrol LA] 4 mg PO HS 12/19/17 [History] Ipratropium-Albuterol Nebulize [Duoneb 0.5 mg-3 mg/3 ml Soln] 3 ml INHALATION RT -Q2H PRN ampul.neb 01/04/18 [Rx] Glucerna Shake 1 can PO DAILY@199905/02/18 [History] Ipratropium-Albuterol Nebulize [Duoneb 0.5 mg-3 mg/3 ml Soln] 3 ml INHALATION RT -TID 05/02/18 [History] Lactobacillus Acidophilus [Acidophilus] 1 tab PO Q48H 05/02/18 [History] Melatonin 5 mg PO HS PRN 05/02/18 [History] Mylanta 30 ml PO Q4H PRN 05/02/18 [History] metFORMIN HCL [Metformin HCl] 500 mg PO BID@0800,1700 05/02/18 [History] House Sooth & Cool Powder 1 applic TOPICAL Q12H 05/07/18 [History] Pantoprazole [Protonix] 40 mg PO DAILY 05/07/18 [History] guaiFENesin [Mucinex] 600 mg PO BID PRN 05/07/18 [History] Amiodarone [Cordarone] 200 mg PO TID tab 05/10/18 [Rx] Aspirin 81 mg PO DAILY chew 05/10/18 [Rx] Furosemide [Lasix] 40 mg PO DAILY tab 05/10/18 [Rx] Metoprolol Tartrate [Lopressor] 12.5 mg PO BID tab 05/10/18 [Rx] Follow up Appointment(s)/Referral(s): Kitty Cardenas MD [Primary Care Provider] - 1-2 days Activity/Diet/Wound Care/Special Instructions: Alfonzo
[2018-05-10] MEDS: METOPROLOL TARTRATE 12.5 MG TAB PO SCH (09:12)
[2018-05-10] MEDS: metFORMIN 500 MG TAB PO SCH (09:12)
[2018-05-10] MEDS: FUROSEMIDE 40 MG TAB PO SCH (09:12)
[2018-05-10] MEDS: AMIODARONE 200 MG TAB PO SCH (09:12)
[2018-05-10] MEDS: APIXABAN 2.5 MG TABLET PO SCH (09:12)
[2018-05-10] MEDS: ASPIRIN 81 MG PO SCH (09:12)
[2018-05-10] MEDS: CHOLECALCIFEROL 1,000 UNIT TAB PO SCH (09:12)
--- NOTE | 2018-05-10 11:21 | FL ---
EXAMINATION TYPE: FL esophagus cervic/pharynx DATE OF EXAM: 05/10/2018 HISTORY: Dysphagia with solids for 2 weeks in the upper airway. COMPARISON: NONE TECHNIQUE: A single contrast esophagram is performed utilizing thick barium. Examination was somewh at limited as the patient could not stand for the procedure and a 45 degree reverse Trendelenburg pos ition was utilized. 1.47 minutes of fluoroscopy time was used with 32 fluoroscopic images saved. FINDINGS: The esophagus shows abnormal motility throughout the exam with persistent tertiary contractions. Ther e is normal emptying into the stomach. No evidence of hiatal hernia or stricture noted. No significa nt gastroesophageal reflux was seen during real time performance of this study. However there is mode rate grade intraesophageal reflux and multifocal contrast stasis secondary to the esophageal dysmotil ity. IMPRESSION: Esophageal dysmotility with abnormal tertiary contractions throughout the examination lik nkechi related to presbyesophagus. This results in moderate grade intraesophageal reflux and multifocal contrast stasis. No focal stricture or obstruction. No hiatal hernia. Speech therapy consultation is recommended to evaluate the oral pharyngeal phase given this patient's described complaint of upper a irway dysphagia.
[2018-05-10 11:47] VITALS: BP 101/58
[2018-05-10 11:54] LABS: Glucose,Whole Blood 154 mg/dL (75-99)
--- NOTE | 2018-05-10 12:16 | P.PN ---
Subjective Progress Note Date: 05/10/18 This is a pleasant 87-year-old female past medical history significant for aortic stenosis admitted to the hospital with cardiac congestive heart failure and atrial fibrillation with rapid ventricular stopped. She has seen and examined on telemetry floor sitting up in bed in no acute distress. She denies symptoms of chest discomfort, shortness of breath, dizziness or palpitations. Blood pressure 101/58 with a heart rate in the 80s, 87% on room air. Anticipating discharge back to [facility] today. We will continue amiodarone 200 mg one tablet by mouth 3 times a day for one week then decrease to a twice a day dose. Follow-up appointment with Dr. Scott in the office post discharge. Objective - Vital Signs Vital signs: Vital Signs Temp 97.7 F 05/10/18 08:00 Pulse 88 05/10/18 11:44 Resp 18 05/10/18 11:44 BP 101/58 05/10/18 11:44 Pulse Ox 87 L 05/10/18 11:44 Intake & Output 05/09/18 05/10/18 05/10/18 18:59 06:59 18:59 Intake Total 1560 1680 240 Output Total 420 Balance 1140 1680 240 Weight 78.9 kg Intake: Oral 1560 1680 240 Output: Urine 420 Uretheral (Menon) 210 Other: Voiding Method Incontinent Toilet Toilet # Voids 3 1 1 - Exam GENERAL: Well-appearing, well-nourished and in no acute distress. NECK: Supple without JVD or thyromegaly. LUNGS: Diminshed bilaterally. Faint rales, no wheezes or rhonchi. Respiration equal and unlabored. HEART: Irregular rate and rhythm with systolic ejection murmur, no rubs or gallops. S1 and S2 heard. EXTREMITIES: Normal range of motion, trace lower extremity edema. No clubbing or cyanosis. Peripheral pulses intact. 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 We will continue amiodarone 200 mg one tablet by mouth 3 times a day today, continue that for one week then decrease to twice a day. Follow-up with Dr. Interiano in the office post discharge. DNP note has been reviewed, I agree with a documented findings and plan of care. Patient was seen and examined.
[2018-05-10] MEDS: MULTIVITAMINS, THERA 1 EACH TAB PO SCH (13:13)
[2018-05-10 13:20] VITALS: PULSE 96
--- NOTE | 2018-05-12 14:34 | CDI ---
Documentation Clarification Form Date: 05/12/2018 2:15:50 PM From: CINDY Gan; Elisa Scott Contact Finger Assembler Phone: If you have a question about this query, please contact Elisa Scott Contact Finger Assembler at [phone] between 8am and 5pm. Admit Date: 05/07/2018 6:46:00 AM Patient Name: Allison Flores Visit Number: [id number] Discharge Date: 05/10/2018 2:45:00 PM ATTENTION: The Clinical Documentation Specialists (CDI) and [facility] Coding Staff appreciate your assistance in clarifying documentation. Please respond to the clarification below the line at the bottom and electronically sign. The CDI & [facility] Coding staff will review the response and follow-up if needed. Please note: Queries are made part of the Legal Health Record. If you have any questions, please contact the author of this message via ITS. Dr. Giles Avila The patient presented in atrial fibrillation with shortness of breath. At admission, there is congestive heart failure, mostly systolic dysfunction with mild diastolic component. Intravenous hydration was started in the ED. Patient developed flash pulmonary edema and IV Lasix was started. History/Risk Factors: Diabetes, hypothyroidism, unstable angina, valvular heart disease Clinical Indicators: Flash pulmonary edema Treatment: IV Lasix Definition of Present on Admission (POA): A diagnosis present at the time the order for admission to inpatient status was written. For each diagnosis, documentation must be clear to determine if the condition was present at the time of the patients inpatient admission or developed during the hospital stay. Please clarify if the documented Acute/Chronic combined systolic and diastolic congestive heart failure was POA: __X__Y = Yes, the condition was present at the time of the order for inpatient admission. ____N = No, the condition was not present at the time of the order for inpatient admission. ____W = clinically undetermined if the condition was present at the time of the order for inpatient admission. MTDD
== END 2018-05-10 14:45 | DRG 291 ==
LOC: EC 05:45 → 2SICU 06:46 → 3SCARD 05-09 06:08
PROVIDERS: ADMIT Internal Medicine Geriatric Medicine; ATTEND Internal Medicine Geriatric Medicine
DX: I50.43 Acute on chronic combined systolic (congestive) and diastolic (congestive) heart failure (principal); J96.01 Acute respiratory failure with hypoxia; I69.354 Hemiplegia and hemiparesis following cerebral infarction affecting left non-dominant side; I25.110 Atherosclerotic heart disease of native coronary artery with unstable angina pectoris; I48.0 Paroxysmal atrial fibrillation; I11.0 Hypertensive heart disease with heart failure; I48.2 Chronic atrial fibrillation; E03.9 Hypothyroidism, unspecified; E11.319 Type 2 diabetes mellitus with unspecified diabetic retinopathy without macular edema; E78.5 Hyperlipidemia, unspecified; E86.0 Dehydration; F02.80 Dementia in other diseases classified elsewhere, unspecified severity, without behavioral disturbance, psychotic disturbance, mood disturbance, and anxiety; F41.9 Anxiety disorder, unspecified; G30.9 Alzheimer's disease, unspecified; H91.90 Unspecified hearing loss, unspecified ear; I08.0 Rheumatic disorders of both mitral and aortic valves; I25.2 Old myocardial infarction; I27.20 Pulmonary hypertension, unspecified; J44.9 Chronic obstructive pulmonary disease, unspecified; K21.9 Gastro-esophageal reflux disease without esophagitis; K22.4 Dyskinesia of esophagus; R32 Unspecified urinary incontinence; Z66 Do not resuscitate; Z79.01 Long term (current) use of anticoagulants; Z79.82 Long term (current) use of aspirin; Z79.84 Long term (current) use of oral hypoglycemic drugs; Z79.899 Other long term (current) drug therapy; Z83.3 Family history of diabetes mellitus; Z90.710 Acquired absence of both cervix and uterus; Z98.42 Cataract extraction status, left eye; Z98.41 Cataract extraction status, right eye; Z96.1 Presence of intraocular lens; Z88.7 Allergy status to serum and vaccine; Z88.2 Allergy status to sulfonamides; Z91.040 Latex allergy status; I95.9 Hypotension, unspecified
CPT/HCPCS: 36415; 71045; 74210; 80053; 80061; 81003; 83605; 83735; 84100; 84439; 84443; 84484; 85025; 85027; 85610; 85730; 87086; 93005; 93306; 94640; 94760; 96361; 96365; 96366; 96368; 96376; 99291

== ENCOUNTER 2018-05-18 10:22 | Inpatient (IN) | payer MEDICARE, BC ==
[2018-05-18] MEDS ORDERED: SODIUM CHLORIDE 0.9% 1,000 ML IV STA (10:51)
[2018-05-18 11:16] LABS: INR 1.1 (<1.2); Prothrombin Time 11.3 sec (9.0-12.0)
[2018-05-18 11:20] LABS: ALT 131 U/L (9-52); AST 51 U/L (14-36); Albumin 3.8 g/dL (3.5-5.0); Alkaline Phosphatase 112 U/L (38-126); Anion Gap 10 mmol/L; Blood Urea Nitrogen 23 mg/dL (7-17); Calcium 8.5 mg/dL (8.4-10.2); Carbon Dioxide 27 mmol/L (22-30); Chloride 79 mmol/L (98-107); Glucose 135 mg/dL (74-99); Magnesium 1.5 mg/dL (1.6-2.3); Potassium 5.5 mmol/L (3.5-5.1); Total Protein 6.5 g/dL (6.3-8.2)
[2018-05-18 11:21] LABS: Basophils % (A) 0 %; Eosinophils # (A) 0.1 k/uL (0-0.7); Eosinophils % (A) 1 %; HCT 32.2 % (34.0-46.0); HGB 10.8 gm/dL (11.4-16.0); Lymphocytes # (A) 1.1 k/uL (1.0-4.8); Lymphocytes % (A) 10 %; MCH 27.9 pg (25.0-35.0); MCHC 33.6 g/dL (31.0-37.0); Mean Platelet Volume 6.8; Monocytes # (A) 0.6 k/uL (0-1.0); Monocytes % (A) 6 %; Neutrophils # (A) 8.6 k/uL (1.3-7.7); Neutrophils % (A) 82 %; Platelet Count 445 k/uL (150-450); RBC 3.88 m/uL (3.80-5.40); RDW 15.5 % (11.5-15.5); WBC 10.4 k/uL (3.8-10.6)
--- NOTE | 2018-05-18 11:26 | ED ---
General Adult HPI - General Chief complaint: Altered Mental Status Stated complaint: Lethargic Time Seen by Provider: 05/18/18 10:25 Source: patient, EMS, RN notes reviewed Mode of arrival: EMS Limitations: no limitations - History of Present Illness Initial comments: This is a 87-year-old female who presents emergency Department complaining of feeling extremely weak. [facility] patient in because they thought she was altered mentally however currently she is answering all questions accurately. Patient states she feels completely exhausted and she feels so this is been ongoing for about a day. Patient denies any pain. Patient denies headache patient denies numbness weakness. Patient denies any lightheadedness dizziness or near syncopal episode. Patient denies chest pain difficulty breathing shortness of breath. Patient denies abdominal pain patient denies any nausea vomiting. Patient denies any palpitations. Patient denies a cough fever chills. Patient denies any increased swelling to her legs. Patient denies any recent injury or trauma. - Related Data Home Medications Medication Instructions Recorded Confirmed Cholecalciferol [Vitamin D3] 1,000 unit PO DAILY 07/20/16 05/18/18 Docusate [Colace] 100 mg PO Q48H 07/20/16 05/18/18 Multivitamins, Thera [Multivitamin 1 tab PO DAILY 07/20/16 05/18/18 (formulary)] Atorvastatin [Lipitor] 80 mg PO HS 11/19/16 05/18/18 Ferrous Sulfate [Iron (65 MG 325 mg PO AC-BID@0900,1700 12/19/17 05/18/18 Elemental)] Glucerna Shake 1 can PO HS 05/02/18 05/18/18 Ipratropium-Albuterol Nebulize 3 ml INHALATION RT-TID 05/02/18 05/18/18 [Duoneb 0.5 mg-3 mg/3 ml Soln] Lactobacillus Acidophilus 1 tab PO Q48H 05/02/18 05/18/18 [Acidophilus] Melatonin 5 mg PO HS PRN 05/02/18 05/18/18 Mylanta 30 ml PO Q4H PRN 05/02/18 05/18/18 metFORMIN HCL [Metformin HCl] 500 mg PO BID@0800,1700 05/02/18 05/18/18 House Sooth & Cool Powder 1 applic TOPICAL Q12H 05/07/18 05/18/18 Pantoprazole [Protonix] 40 mg PO DAILY 05/07/18 05/18/18 Previous Rx's Medication Instructions Recorded Apixaban [Eliquis] 2.5 mg PO BID #60 tab 08/18/16 Ipratropium-Albuterol Nebulize 3 ml INHALATION RT-Q2H PRN 01/04/18 [Duoneb 0.5 mg-3 mg/3 ml Soln] ampul.kathy Amiodarone [Cordarone] 200 mg PO TID tab 05/10/18 Aspirin 81 mg PO DAILY chew 05/10/18 Metoprolol Tartrate [Lopressor] 12.5 mg PO BID tab 05/10/18 Allergies Allergy/AdvReac Type Severity Reaction Status Date / Time Influenza Virus Vaccines Allergy Unknown Verified 05/18/18 10:37 latex Allergy Rash/Hives Verified 05/18/18 10:37 Sulfa (Sulfonamide AdvReac Nausea & Verified 05/18/18 10:37 Antibiotics) Vomiting Review of Systems ROS Statement: Those systems with pertinent positive or pertinent negative responses have been documented in the HPI. ROS Other: All systems not noted in ROS Statement are negative. Past Medical History Past Medical History: Atrial Fibrillation, Coronary Artery Disease (CAD), CVA/TIA, Dementia, Diabetes Mellitus, GI Bleed, Hyperlipidemia, Hypertension, Myocardial Infarction (MN), Osteoarthritis (OA) Additional Past Medical History / Comment(s): Coronary artery disease, moderate to severe aortic stenosis, chronic atrial fibrillation, history of CVA with some residual left-sided weakness, dementia, diabetes mellitus type 2, acid reflux, hyperlipidemia, hypertension, previous MN, previous history of small bowel obs truction, chronic anemia, vitamin D deficiency, chronic back pain, history of recurrent falls. Vision, impaired hearing, difficulty with mobility and gait and the patient [facility]. Last Myocardial Infarction Date:: 2006? History of Any Multi-Drug Resistant Organisms: None Reported Past Surgical History: Hysterectomy Additional Past Surgical History / Comment(s): angioplasty Past Anesthesia/Blood Transfusion Reactions: No Reported Reaction Past Psychological History: No Psychological Hx Reported Smoking Status: Never smoker Past Alcohol Use History: None Reported Past Drug Use History: None Reported - Past Family History Mother Additional Family Medical History / Comment(s): Brain An. Father Family Medical History: CVA/TIA Additional Family Medical History / Comment(s): Father in his 70s from multiple CVAs. Sister(s) Family Medical History: Diabetes Mellitus Additional Family Medical History / Comment(s): Cardiac issues Brother(s) Family Medical History: Diabetes Mellitus Additional Family Medical History / Comment(s): cardiac issues General Exam - General Exam Comments Initial Comments: GENERAL: Patient is well-developed and well-nourished. Patient is nontoxic and well- hydrated and is in mild distress. ENT: Neck is soft and supple. No significant lymphadenopathy is noted. Oropharynx is clear. Moist mucous membranes. Neck has full range of motion without eliciting any pain. EYES: The sclera were anicteric and conjunctiva were pink and moist. Extraocular movements were intact and pupils were equal round and reactive to light. Eyelids were unremarkable. PULMONARY: Unlabored respirations. Good breath sounds bilaterally. No audible rales rhonchi or wheezing was noted. CARDIOVASCULAR: There is a regular rate and rhythm without any murmurs gallops or rubs. ABDOMEN: Soft and nontender with normal bowel sounds. No palpable organomegaly was noted. There is no palpable pulsatile mass. SKIN: Skin is clear with no lesions or rashes and otherwise unremarkable. NEUROLOGIC: Patient is alert and oriented x3. Cranial nerves II through XII are grossly intact. Motor and sensory are also intact. Normal speech, volume and content. Symmetrical smile. MUSCULOSKELETAL: Normal extremities with adequate strength and full range of motion. No lower extremity swelling or edema. No calf tenderness. LYMPHATICS: No significant lymphadenopathy is noted PSYCHIATRIC: Normal psychiatric evaluation. Limitations: no limitations Course Vital Signs 05/18/18 10:26 Temperature 97.8 F Pulse Rate 99 Respiratory 18 Rate Blood Pressure 154/85 O2 Sat by Pulse 99 Oximetry Medical Decision Making - Medical Decision Making EKG shows atrial fibrillation at 99 bpm QRS is under 2 QT interval 372 QTC is 477. Patient's EKG shows no ST segment elevation or depression or T wave ab normalities are noted. Patient was hyponatremic so I gave the patient liter of fluid when she arrived. Patient also urinary tract infection and blood cultures and start antibiotics. I spoke with Dr. Rivera she agreed to admit the patient admitted the patient I consult nephrology for the hyponatremia. I continued the antibiotics on the floor as well as fluid on the floor. - Lab Data Result diagrams: 05/18/18 10:45 05/18/18 10:45 Lab Results 05/18/18 05/18/18 05/18/18 Range/Units 10:45 10:45 10:45 WBC 10.4 (3.8-10.6) k/uL RBC 3.88 (3.80-5.40) m/uL Hgb 10.8 L (11.4-16.0) gm/dL Hct 32.2 L (34.0-46.0) % MCV 83.0 (80.0-100.0) fL MCH 27.9 (25.0-35.0) pg MCHC 33.6 (31.0-37.0) g/dL RDW 15.5 (11.5-15.5) % Plt Count 445 (150-450) k/uL Neutrophils % 82 % Lymphocytes % 10 % Monocytes % 6 % Eosinophils % 1 % Basophils % 0 % Neutrophils # 8.6 H (1.3-7.7) k/uL Lymphocytes # 1.1 (1.0-4.8) k/uL Monocytes # 0.6 (0-1.0) k/uL Eosinophils # 0.1 (0-0.7) k/uL Basophils # 0.0 (0-0.2) k/uL PT (9.0-12.0) sec INR (<1.2) APTT (22.0-30.0) sec Sodium 116 L* (137-145) mmol/L Potassium 5.5 H (3.5-5.1) mmol/L Chloride 79 L (98-107) mmol/L Carbon Dioxide 27 (22-30) mmol/L Anion Gap 10 mmol/L BUN 23 H (7-17) mg/dL Creatinine 0.68 (0.52-1.04) mg/dL Est GFR (CKD-EPI)AfAm >90 (>60 ml/min/1.73 sqM) Est GFR (CKD-EPI)NonAf 79 (>60 ml/min/1.73 sqM) Glucose 135 H (74-99) mg/dL Plasma Lactic Acid Fran 1.0 (0.7-2.0) mmol/L Calcium 8.5 (8.4-10.2) mg/dL Magnesium 1.5 L (1.6-2.3) mg/dL Total Bilirubin 1.0 (0.2-1.3) mg/dL AST 51 H (14-36) U/L ALT 131 H (9-52) U/L Alkaline Phosphatase 112 (38-126) U/L Troponin I (0.000-0.034) ng/mL Total Protein 6.5 (6.3-8.2) g/dL Albumin 3.8 (3.5-5.0) g/dL Urine Color Urine Appearance (Clear) Urine pH (5.0-8.0) Ur Specific [place] (1.001-1.035) Urine Protein (Negative) Urine Glucose (UA) (Negative) Urine Ketones (Negative) Urine Blood (Negative) Urine Nitrite (Negative) Urine Bilirubin (Negative) Urine Urobilinogen (<2.0) mg/dL Ur Leukocyte Esterase (Negative) Urine RBC (0-5) /hpf Urine WBC (0-5) /hpf Urine WBC Clumps (None) /hpf Ur Squamous Epith Cells (0-4) /hpf Urine Bacteria (None) /hpf Urine Mucus (None) /hpf 05/18/18 05/18/18 05/18/18 Range/Units 10:45 10:45 11:16 WBC (3.8-10.6) k/uL RBC (3.80-5.40) m/uL Hgb (11.4-16.0) gm/dL Hct (34.0-46.0) % MCV (80.0-100.0) fL MCH (25.0-35.0) pg MCHC (31.0-37.0) g/dL RDW (11.5-15.5) % Plt Count (150-450) k/uL Neutrophils % % Lymphocytes % % Monocytes % % Eosinophils % % Basophils % % Neutrophils # (1.3-7.7) k/uL Lymphocytes # (1.0-4.8) k/uL Monocytes # (0-1.0) k/uL Eosinophils # (0-0.7) k/uL Basophils # (0-0.2) k/uL PT 11.3 (9.0-12.0) sec INR 1.1 (<1.2) APTT 30.0 (22.0-30.0) sec Sodium (137-145) mmol/L Potassium (3.5-5.1) mmol/L Chloride (98-107) mmol/L Carbon Dioxide (22-30) mmol/L Anion Gap mmol/L BUN (7-17) mg/dL Creatinine (0.52-1.04) mg/dL Est GFR (CKD-EPI)AfAm (>60 ml/min/1.73 sqM) Est GFR (CKD-EPI)NonAf (>60 ml/min/1.73 sqM) Glucose (74-99) mg/dL Plasma Lactic Acid Fran (0.7-2.0) mmol/L Calcium (8.4-10.2) mg/dL Magnesium (1.6-2.3) mg/dL Total Bilirubin (0.2-1.3) mg/dL AST (14-36) U/L ALT (9-52) U/L Alkaline Phosphatase (38-126) U/L Troponin I 0.027 (0.000-0.034) ng/mL Total Protein (6.3-8.2) g/dL Albumin (3.5-5.0) g/dL Urine Color Yellow Urine Appearance Cloudy H (Clear) Urine pH 6.5 (5.0-8.0) Ur Specific [place] 1.014 (1.001-1.035) Urine Protein 1+ H (Negative) Urine Glucose (UA) Negative (Negative) Urine Ketones Negative (Negative) Urine Blood Trace H (Negative) Urine Nitrite Positive H (Negative) Urine Bilirubin Negative (Negative) Urine Urobilinogen <2.0 (<2.0) mg/dL Ur Leukocyte Esterase Large H (Negative) Urine RBC 8 H (0-5) /hpf Urine WBC >182 H (0-5) /hpf Urine WBC Clumps Rare H (None) /hpf Ur Squamous Epith Cells <1 (0-4) /hpf Urine Bacteria Moderate H (None) /hpf Urine Mucus Rare H (None) /hpf Critical Care Time Critical Care Time: Yes Total Critical Care Time: 35 Disposition Clinical Impression: Hyponatremia, Generalized weakness, Urinary tract infection, Sepsis Disposition: ADMITTED IP TO THIS HOSP Referrals: Kitty Cardenas MD [Primary Care Provider] - 1-2 days Time of Disposition: 12:21
[2018-05-18 11:42] LABS: Appearance,Urine Cloudy (Clear); Bacteria,Urine Moderate /hpf; Bilirubin,Urine Negative (Negative); Blood,Urine Trace (Negative); Color,Urine Yellow; Glucose,Urine (UA) Negative (Negative); Ketones,Urine Negative (Negative); Leukocyte Esterase,Urine Large (Negative); Mucus,Urine Rare /hpf; Nitrite,Urine Positive (Negative); PH, Urine 6.5 (5.0-8.0); Protein,Urine 1+ (Negative); RBC,Urine 8 /hpf (0-5); Specific Gravity,Urine 1.014 (1.001-1.035); Squamous Epithelial Cell,Urine <1 /hpf (0-4); Urobilinogen,Urine <2.0 mg/dL (<2.0); WBC,Urine >182 /hpf (0-5)
--- NOTE | 2018-05-18 12:02 | XR ---
EXAMINATION TYPE: XR chest 2V DATE OF EXAM: 05/18/2018 COMPARISON: 05/07/2018 HISTORY: Shortness of breath TECHNIQUE: Frontal and lateral views of the chest are obtained. FINDINGS: Scattered senescent parenchymal changes noted. Hyperinflation compatible with COPD. Pulmonary venous congestion with cardiomegaly and small effusions. Left basilar infiltrate or atelect asis. Allowing for congestive failure. Mediastinal structures are stable and grossly unremarkable. No evidence for hilar prominence. Degenerative changes dorsal spine. IMPRESSION: 1. Pulmonary venous congestion with cardiomegaly and small effusions. Left basilar infiltrate or atel ectasis. Allowing for congestive failure.
[2018-05-18 12:14] LABS: Sodium 116 mmol/L (137-145)
[2018-05-18] MEDS ORDERED: SODIUM CHLORIDE 0.9% 1,000 ML IV ONE (12:23)
[2018-05-18] MEDS ORDERED: IPRATROPIUM-ALBUTEROL 3 ML NEB INHALATION PRN (12:25)
[2018-05-18] MEDS: IPRATROPIUM-ALBUTEROL 3 ML NEB INHALATION SCH ×2 (13:06→21:26)
[2018-05-18] MEDS ORDERED: MELATONIN 5 MG TABLET PO PRN (13:23)
--- NOTE | 2018-05-18 13:37 | P.HPIM ---
History of Present Illness H&P Date: 05/18/18 Chief Complaint: Mental status changes, 87-year-old female from [facility] on the [facility] was sees Dr. Cardenas. She has underlying history of chronic atrial fibrillation, CAD, dementia, diabetes mellitus, CVA residual left hemiparesis, GI bleed in the past along with h ypertension previous VT, moderate to severe aortic stenosis who brought to the hospital via EMS secondary to mental status changes, with increasing confusion, patient feels exhausted, for approximately one week, patient denies any lightheadedness or dizziness, no abdominal pain, appetite has been decreased, patient has no new head trauma or concussion, serum sodium performed May 09 Harry shows a sodium of 132, on the ER and 3 her sodium is critical at 116 and significant pyuria with nitrite positivity, 182 with clumping WBCs /hpf. Patient was admitted for urinary tract infection, significant hyponatremia secondary to poor oral intake, patient is not on diuretics prior to admission as this was discontinued 3 days prior to admission, they have started her on fluid restrictions, as her sodium was 114, thereafter started getting more anasarca, periorbital edema, and continued to decline further patient also has abdominal distention without any abdominal pain, bowel movement was yesterday. She was last admitted May 07 - 05/10/2018 secondary to A. fib with RVR unstable angina with elevated troponin, acute hypoxemic Restoril failure secondary to A. fib with RVR, and systolic CHF exacerbation with fluid overload, known history of severe , and LV outlet obstruction severe pulmonary hypertension, chronic anticoagulation, she quietly titration up her amiodarone to 200 mg 3 times a day on discharge, along with Lasix 40 mg daily, and metoprolol 12.5 mg twice a day, In view of the above, her saline supplementation with 0.9 to correct her critical serum sodium will be changed to 3% normal saline, at 30 mL an hour patient will NOT be able to tolerate large volume fluid shift admitted to ICU Review of Systems Constitutional: Reports as per HPI, Reports anorexia, Reports chills, Reports fatigue, Reports lethargy, Reports malaise, Reports weakness, Denies chronic headaches, Denies chronic pain, Denies daytime sleepiness, Denies fever, Denies night sweats, Denies poor appetite, Denies sweats, Denies weight gain, Denies weight loss Ears, nose, mouth and throat: Reports as per HPI, Denies ant. neck pain, Denies bleeding gums, Denies dental pain, Denies dysphagia, Denies epistaxis, Denies headache, Denies hoarseness, Denies mouth pain, Denies nasal congestion, Denies nasal discharge, Denies neck fullness/pressure, Denies neck lump, Denies nose pain, Denies odynophagia, Denies post-nasal drip, Denies sinus pain, Denies sinus pressure, Denies swelling in mouth, Denies swelling in throat, Denies sore throat, Denies vertigo, Denies voice changes Cardiovascular: Reports as per HPI, Denies chest pain, Denies claudication, Denies decreased exercise tolerance, Denies dyspnea on exertion, Denies edema, Denies high blood pressure, Denies irregular heart beat, Denies leg edema, Denies lightheadedness, Denies orthopnea, Denies palpitations, Denies paroxysmal nocturnal dyspnea, Denies phlebitis, Denies rapid heart beat, Denies shortness of breath, Denies syncope Respiratory: Reports as per HPI, Denies congestion, Denies cough, Denies cough with sputum, Denies dyspnea, Denies excessive sputum, Denies hemoptysis, Denies home oxygen, Denies pain, Denies pain on inspiration, Denies pleurisy, Denies respiratory infections, Denies sleep apnea, Denies snoring, Denies wheezing Gastrointestinal: Reports as per HPI, Denies abdominal pain, Denies belching, Denies bloating, Denies BRBPR, Denies change in bowel habits, Denies coffee grou nd emesis, Denies constipation, Denies diarrhea, Denies dyspepsia, Denies early satiety, Denies excessive gas, Denies heartburn, Denies hematemesis, Denies hematochezia, Denies indigestion, Denies jaundice, Denies lactose intolerance, Denies loss of appetite, Denies melena, Denies nausea, Denies vomiting Genitourinary: Reports as per HPI Menstruation: Reports as per HPI, Denies amenorrhea, Denies amenorrhea on BC, Denies currently menstrual, Denies cycle < 21 days, Denies cycle > 35 days, Denies cycle variable, Denies menses 1-7 days, Denies menses 8 or > days, Denies menses variable, Denies period heavy, Denies period light, Denies period normal, Denies period spotting, Denies post hysterectomy, Denies postmenopausal, Denies premenarcheal Musculoskeletal: Reports as per HPI Integumentary: Reports as per HPI Neurological: Reports as per HPI, Reports confusion, Reports memory loss, Reports motor disturbance, Reports weakness Psychiatric: Reports as per HPI Endocrine: Reports as per HPI, Reports cold intolerance, Denies deepening of the voice, Denies excessive sweating, Denies excessive thirst, Denies fatigue, Denies flushing, Denies heat intolerance, Denies high blood sugars, Denies increase in ring/shoe/hat size, Denies low blood sugars, Denies nocturia, Denies palpitations, Denies polydipsia, Denies polyphagia, Denies polyuria, Denies proptosis, Denies recent glucocorticoid use, Denies thyroid mass, Denies weight change Past Medical History Past Medical History: Atrial Fibrillation, Coronary Artery Disease (CAD), CVA/TIA, Dementia, Diabetes Mellitus, GI Bleed, Hyperlipidemia, Hypertension, Myocardial Infarction (VT), Osteoarthritis (OA) Additional Past Medical History / Comment(s): Coronary artery disease, moderate to severe aortic stenosis, chronic atrial fibrillation, history of CVA with some residual left-sided weakness, dementia, diabetes mellitus type 2, acid reflux, hyperlipidemia, hypertension, previous VT, previous history of small bowel obstruction, chronic anemia, vitamin D deficiency, chronic back pain, history of recurrent falls. Vision, impaired hearing, difficulty with mobility and gait and the [facility]. Last Myocardial Infarction Date:: 2006? History of Any Multi-Drug Resistant Organisms: None Reported Past Surgical History: Hysterectomy Additional Past Surgical History / Comment(s): angioplasty Past Anesthesia/Blood Transfusion Reactions: No Reported Reaction Past Psychological History: No Psychological Hx Reported Smoking Status: Never smoker Past Alcohol Use History: None Reported Past Drug Use History: None Reported - Past Family History Mother Additional Family Medical History / Comment(s): Brain An. Father Family Medical History: CVA/TIA Additional Family Medical History / Comment(s): Father in his 70s from multiple CVAs. Sister(s) Family Medical History: Diabetes Mellitus Additional Family Medical History / Comment(s): Cardiac issues Brother(s) Family Medical History: Diabetes Mellitus Additional Family Medical History / Comment(s): cardiac issues Medications and Allergies Home Medications Medication Instructions Recorded Confirmed Type Cholecalciferol [Vitamin D3] 1,000 unit PO DAILY 07/20/16 05/18/18 History Docusate [Colace] 100 mg PO Q48H 07/20/16 05/18/18 History Multivitamins, Thera [Multivitamin 1 tab PO DAILY 07/20/16 05/18/18 History (formulary)] Apixaban [Eliquis] 2.5 mg PO BID #60 tab 08/18/16 05/18/18 Rx Atorvastatin [Lipitor] 80 mg PO HS 11/19/16 05/18/18 History Ferrous Sulfate [Iron (65 MG 325 mg PO AC-BID@0900,1700 12/19/17 05/18/18 History Elemental)] Ipratropium-Albuterol Nebulize 3 ml INHALATION RT-Q2H PRN 01/04/18 05/18/18 Rx [Duoneb 0.5 mg-3 mg/3 ml Soln] ampul.neb Glucerna Shake 1 can PO HS 05/02/18 05/18/18 History Ipratropium-Albuterol Nebulize 3 ml INHALATION RT-TID 05/02/18 05/18/18 History [Duoneb 0.5 mg-3 mg/3 ml Soln] Lactobacillus Acidophilus 1 tab PO Q48H 05/02/18 05/18/18 History [Acidophilus] Melatonin 5 mg PO HS PRN 05/02/18 05/18/18 History Mylanta 30 ml PO Q4H PRN 05/02/18 05/18/18 History metFORMIN HCL [Metformin HCl] 500 mg PO BID@0800,1700 05/02/18 05/18/18 History House Sooth & Cool Powder 1 applic TOPICAL Q12H 05/07/18 05/18/18 History Pantoprazole [Protonix] 40 mg PO DAILY 05/07/18 05/18/18 History Amiodarone [Cordarone] 200 mg PO TID tab 05/10/18 05/18/18 Rx Aspirin 81 mg PO DAILY chew 05/10/18 05/18/18 Rx Metoprolol Tartrate [Lopressor] 12.5 mg PO BID tab 05/10/18 05/18/18 Rx Allergies Allergy/AdvReac Type Severity Reaction Status Date / Time Influenza Virus Vaccines Allergy Unknown Verified 05/18/18 10:37 latex Allergy Rash/Hives Verified 05/18/18 10:37 Sulfa (Sulfonamide AdvReac Nausea & Verified 05/18/18 10:37 Antibiotics) Vomiting Physical Exam Vitals: Vital Signs Temp Pulse Resp BP Pulse Ox 05/18/18 13:08 86 05/18/18 10:26 97.8 F 99 18 154/85 99 Intake and Output 05/17/18 05/18/18 05/18/18 22:59 06:59 14:59 Other: Weight 79.379 kg - Constitutional General appearance: cooperative, no acute distress - EENT Eyes: anicteric sclerae, PERRLA, normal appearance ENT: NA/AT, normal oropharynx - Neck Neck: normal ROM - Respiratory Respiratory: bilateral: CTA, negative: diminished, dullness, rales, rhonchi, wheezing - Cardiovascular Rhythm: regular Heart sounds: normal: S1 Abnormal Heart Sounds: no systolic murmur, no diastolic murmur, no rub, no S3 Gallop, no S4 Gallop, no click, no other - Gastrointestinal General gastrointestinal: normal bowel sounds, soft - Integumentary Integumentary: decreased turgor, normal - Neurologic Neurologic: CNII-XII intact - Musculoskeletal Musculoskeletal: gait normal, strength equal bilaterally - Psychiatric Psychiatric: A&O x's 3, appropriate affect, intact judgment & insight Results CBC & Chem 7: 05/18/18 10:45 05/18/18 10:45 Labs: Abnormal Lab Results - Last 24 Hours (Table) 05/18/18 05/18/18 05/18/18 Range/Units 10:45 10:45 11:16 Hgb 10.8 L (11.4-16.0) gm/dL Hct 32.2 L (34.0-46.0) % Neutrophils # 8.6 H (1.3-7.7) k/uL Sodium 116 L* (137-145) mmol/L Potassium 5.5 H (3.5-5.1) mmol/L Chloride 79 L (98-107) mmol/L BUN 23 H (7-17) mg/dL Glucose 135 H (74-99) mg/dL Magnesium 1.5 L (1.6-2.3) mg/dL AST 51 H (14-36) U/L ALT 131 H (9-52) U/L Urine Appearance Cloudy H (Clear) Urine Protein 1+ H (Negative) Urine Blood Trace H (Negative) Urine Nitrite Positive H (Negative) Ur Leukocyte Esterase Large H (Negative) Urine RBC 8 H (0-5) /hpf Urine WBC >182 H (0-5) /hpf Urine WBC Clumps Rare H (None) /hpf Urine Bacteria Moderate H (None) /hpf Urine Mucus Rare H (None) /hpf Thrombosis Risk Factor Assmnt - DVT/VTE Prophylaxis DVT/VTE Prophylaxis: Pharmacologic Prophylaxis ordered Assessment and Plan Assessment: 1 critical hypo-natremia, secondary to poor oral intake, patient is not on any d iuretics prior to admission or antiseizure medication, provide saline supplementation, 100cc/hr mL rpt 6 hours and daily, renal ultrasound to be done, consult nephrology cannot rule out SIADH, urine sodium urine osmolality sodium be obtained, admitted to ICU for critical fluid management [place] catheter to be placed 2. A. fib with controlled heart rate remain on Eliquis 2.5 g twice a day patient was previously on amiodarone 200 mg twice a day from his titration 05/07/2018 3. Acute urinary tract infection, monitor for SIRS, Rocephin renal dosing cultures are pending has been sent 4. Anasarca with periorbital edema, CHF exacerbation, acute on chronic diastolic, restart Lasix 40 mg daily 8 hours 5. Abdominal distention acute, without guarding, x-rays of the abdomen to be done, possibly related to ascites might be a CAT scan obtained abdominal ultrasound, IV diuretics for now 4. Hyperkalemia most likely secondary to dehydration, entry potassium of 5.5, IV fluids, no correction at this time with Kayexalate labs to be monitored 5. Mild transaminitis, monitor liver function tests, possibly secondary to amiodarone and CHF, might need hepatitis panel should numbers progress 6 valvular heart disease: Patient had severe aortic stenosis and mild mitral regurgitation both are treated medically she had decline doing surgery in the past. 7. Severe pulmonary hypertension based on echocardiogram May 7 diabetes diabetes: On metformin 500 mg twice a day we will continue Accu-Chek with sliding scales coverage. 8 Hypothyroidism: TSH elevated at 6.7 05/07/2018 Most likely brought by amiodarone at this point patient is not on any medication, levothyroxine was not started at that time of discharge plan was to monitor next lab draw to 4 weeks 9 hyperlipidemia: Has been on atorvastatin 80 mg daily. 8 incontinence: Has been on Detrol. 9 reactive airway/COPD: Patient remain on albuterol/ipratropium. 10 severe GERD/GI prophylaxis: Remain on pantoprazole 40 mg daily. 11 dementia: Alzheimer type with slight with worsening lately. Still not on any medication. 12. 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
[2018-05-18] MEDS ORDERED: SODIUM CHLORIDE 3%(HYPERTONIC) 500 ML IV SCH (14:00)
[2018-05-18] MEDS: MAGNESIUM OXIDE 400 MG TAB PO SCH (14:53)
[2018-05-18 14:56] LABS: Magnesium 1.6 mg/dL (1.6-2.3)
--- NOTE | 2018-05-18 14:57 | XR ---
EXAMINATION TYPE: XR abdomen 2V DATE OF EXAM: 05/18/2018 COMPARISON: NONE HISTORY: Abdominal distention TECHNIQUE: One view abdominal series FINDINGS: Bilateral lower lobe consolidation small effusion. Hypertrophic and degenerative change of the spine. Air seen throughout large and small bowel loops in a nonspecific pattern. Arthropathy of the hips. C alcifications in the pelvis are nonspecific but likely vascular. IMPRESSION: 1. Nonspecific gas pattern with air seen throughout large and small bowel loops. 2. Bilateral lower lobe infiltrate and small effusion
[2018-05-18 16:11] LABS: Glucose,Whole Blood 124 mg/dL (75-99)
--- NOTE | 2018-05-18 16:50 | US ---
EXAMINATION TYPE: US abdomen limited DATE OF EXAM: 05/18/2018 COMPARISON: NONE CLINICAL HISTORY: Abdominal distention, assess for ascites. FINDINGS: All 4 quadrants were assessed with multiplanar high-resolution parsons scale sonographic technique. A small volume of anechoic fluid was noted in the right lower quadrant. IMPRESSION: SMALL VOLUME RIGHT LOWER QUADRANT ASCITES.
--- NOTE | 2018-05-18 17:12 | P.CNPUL ---
History of Present Illness Consult date: 05/18/18 Requesting physician: Diana Rivera Reason for consult: dyspnea, other Chief complaint: Shortness of breath, weakness, lethargy, hyponatremia History of present illness: This is a 87-year-old white female patient with past medical history of chronic congestive heart failure, chronic atrial fibrillation on Eliquis, severe aortic stenosis with mitral stenosis, severe pulmonary hypertension, coronary artery disease with remote history of myocardial infarction, history of CVA with left- sided weakness, dementia, hyperlipidemia, hypothyroidism, history of small bowel obstruction, status post exploratory lap with lysis of adhesions. Patient was recently hospitalized in the beginning of May for acute exacerbation of chronic congestive heart failure, at that time echocardiogram was completed, and it was a difficult study, showed severe aortic stenosis, and severe mitral stenosis, EF was not taken. Patient was discharged to [facility] on the [place] after discharge, and patient recently was just from [facility] about a week ago, she was seen by Dr. Rivera last week in the office, and her serum sodium level was low, her Lasix was discontinued, and patient was placed on 1000 ML water restriction. Over the weekend, patient started having increased abdominal distention, weakness, lethargy. Patient was feeling completely exhausted, she denied any difficulty breathing, denied any chest pain, denied any fever or chills, no syncopal episodes, no nausea, no vomiting or diarrhea, no abdominal pain, no cough, fever or chills. Denies any increased swelling in her lower extremities. Chest x-ray was taken and showed pulmonary venous congestion with cardiomegaly and small pleural effusions and atelectasis. Labwork showed white blood cell count of 10.4, hemoglobin of 10.8, serum sodium was 116, previous serum sodium from 05/09/2018 was 132. Potassium is 5.5, chloride was 79, CO2 is 27, B1 is 23, creatinine 0.68, AST was 51, ALT was 131, magnesium was 1.5, troponin was 0.027, urinalysis was there for evidence of infection, with large amount of leukocyte esterase, nitrite, red blood cells, and greater than 182 white blood cells, and bacteria. Urine osmolality at 536, which is within normal limits. Serum osmolality was low, at 247, serum cortisol was 22. No fever or chills, denies any shortness of breath, she is resting comfortably on the gurney, she is being seen in the emergency department, awaiting a bed in the intensive care unit, on 3 L per nasal cannula her pulse ox is 100%, lung sounds are positive for scattered crackles, no rhonchi or wheezing. She has daughters at the bedside, and helping with the history. Patient was started on Rocephin, she was given a liter of 0.9 normal saline in the emergency department, and now she is on hypertonic saline at a rate of 20 ML per hour, she is on IV Lasix at 40 mg every 8 hours, hemodynamics are stable, she is in A. fib with a controlled rate, she is on oral anticoagulation with Eliquis. Review of Systems All systems: negative Constitutional: Reports daytime sleepiness, Reports lethargy, Reports weakness, Denies chills, Denies fever Eyes: denies blurred vision, denies pain Ears, nose, mouth and throat: Denies headache, Denies sore throat Cardiovascular: Reports decreased exercise tolerance, Reports edema, Denies chest pain, Denies shortness of breath Respiratory: Denies cough Gastrointestinal: Denies abdominal pain, Denies diarrhea, Denies nausea, Denies vomiting Genitourinary: Denies dysuria, Denies hematuria Musculoskeletal: Denies myalgias Integumentary: Denies pruritus, Denies rash Neurological: Denies numbness, Denies weakness Psychiatric: Denies anxiety, Denies depression Endocrine: Denies fatigue, Denies weight change Past Medical History Past Medical History: Atrial Fibrillation, Coronary Artery Disease (CAD), Heart Failure, CVA/TIA, Dementia, Diabetes Mellitus, GERD/Reflux, GI Bleed, Hearing Disorder / Deafness, Hyperlipidemia, Hypertension, Myocardial Infarction (ID), Osteoarthritis (OA) Additional Past Medical History / Comment(s): Pt recently admitted to [facility] on 05/07/18 with Afib RVR, hypoxic respiratory failure 2ndary to Afib RVR, acute heart failure. Other hx: Aortic/mitral stenosis, LV outlet obstruction, chronic atrial fibrillation, history of CVA with some residual left-sided weakness, dementia, NIDDM type II, neuropathy bilateral feet, bilataeral retinopathy, small bowel obstruction with surgery then post op ileus as well as respiratory frailure, chronic iron deficiency anemia with past infusions, vitamin D deficiency, chronic back pain, R leg pain, history of recurrent falls, impaired hearing, difficulty with mobility and gait and the patient uses a walker at the residential until recently-has been in wheelchair, incontinence. Last Myocardial Infarction Date:: 2006? History of Any Multi-Drug Resistant Organisms: None Reported Past Surgical History: Hysterectomy Additional Past Surgical History / Comment(s): PTCA, 12/2017 exploratory lap with lysis of adhesions, L eye injections, bilateral cataracts removed with lens implants, EGD/colonoscopy, epidural pain injections. Past Anesthesia/Blood Transfusion Reactions: No Reported Reaction Smoking Status: Never smoker - Past Family History Mother Additional Family Medical History / Comment(s): Brain An. Father Family Medical History: CVA/TIA Additional Family Medical History / Comment(s): Father in his 70s from multiple CVAs. Sister(s) Family Medical History: Diabetes Mellitus Additional Family Medical History / Comment(s): Cardiac issues Brother(s) Family Medical History: Diabetes Mellitus Additional Family Medical History / Comment(s): cardiac issues Medications and Allergies Home Medications Medication Instructions Recorded Confirmed Type Cholecalciferol [Vitamin D3] 1,000 unit PO DAILY 07/20/16 05/18/18 History Docusate [Colace] 100 mg PO Q48H 07/20/16 05/18/18 History Multivitamins, Thera [Multivitamin 1 tab PO DAILY 07/20/16 05/18/18 History (formulary)] Apixaban [Eliquis] 2.5 mg PO BID #60 tab 08/18/16 05/18/18 Rx Atorvastatin [Lipitor] 80 mg PO HS 11/19/16 05/18/18 History Ferrous Sulfate [Iron (65 MG 325 mg PO AC-BID@0900,1700 12/19/17 05/18/18 History Elemental)] Ipratropium-Albuterol Nebulize 3 ml INHALATION RT-Q2H PRN 01/04/18 05/18/18 Rx [Duoneb 0.5 mg-3 mg/3 ml Soln] ampul.neb Glucerna Shake 1 can PO HS 05/02/18 05/18/18 History Ipratropium-Albuterol Nebulize 3 ml INHALATION RT-TID 05/02/18 05/18/18 History [Duoneb 0.5 mg-3 mg/3 ml Soln] Lactobacillus Acidophilus 1 tab PO Q48H 05/02/18 05/18/18 History [Acidophilus] Melatonin 5 mg PO HS PRN 05/02/18 05/18/18 History Mylanta 30 ml PO Q4H PRN 05/02/18 05/18/18 History metFORMIN HCL [Metformin HCl] 500 mg PO BID@0800,1700 05/02/18 05/18/18 History House Sooth & Cool Powder 1 applic TOPICAL Q12H 05/07/18 05/18/18 History Pantoprazole [Protonix] 40 mg PO DAILY 05/07/18 05/18/18 History Amiodarone [Cordarone] 200 mg PO TID tab 05/10/18 05/18/18 Rx Aspirin 81 mg PO DAILY chew 05/10/18 05/18/18 Rx Metoprolol Tartrate [Lopressor] 12.5 mg PO BID tab 05/10/18 05/18/18 Rx Allergies Allergy/AdvReac Type Severity Reaction Status Date / Time Influenza Virus Vaccines Allergy Unknown Verified 05/18/18 10:37 latex Allergy Rash/Hives Verified 05/18/18 10:37 Sulfa (Sulfonamide AdvReac Nausea & Verified 05/18/18 10:37 Antibiotics) Vomiting Physical Exam Vitals: Vital Signs Temp Pulse Resp BP Pulse Ox 05/18/18 14:30 90 18 108/73 99 05/18/18 14:00 84 18 122/92 100 05/18/18 13:41 97.9 F 87 18 122/92 100 05/18/18 13:30 96 18 124/107 100 05/18/18 13:21 89 05/18/18 13:08 86 05/18/18 13:00 93 18 131/93 97 05/18/18 12:30 104 H 18 117/87 98 05/18/18 12:00 84 18 132/89 97 05/18/18 11:30 103 H 130/102 05/18/18 11:00 91 154/85 05/18/18 10:30 154/85 98 05/18/18 10:27 154/104 05/18/18 10:26 97.8 F 99 18 154/85 99 Intake and Output 05/18/18 05/18/18 05/18/18 06:59 14:59 22:59 Other: Weight 79.379 kg GENERAL EXAM: Alert, pleasant, 87-year-old white female, resting in the [facility] the emergency department on 3 L of oxygen with pulse ox 100% comfortable in no apparent distress. HEAD: Normocephalic/atraumatic. EYES: Normal reaction of pupils, equal size. Conjunctiva pink, sclera white. NOSE: Clear with pink turbinates. THROAT: No erythema or exudates. NECK: No masses, no JVD, no thyroid enlargement, no adenopathy. CHEST: No chest wall deformity. Symmetrical expansion. LUNGS: Equal air entry with a few scattered crackles CVS: Regular rate and rhythm, normal S1 and S2, no gallops, no murmurs, no rubs ABDOMEN: Soft, nontender. No hepatosplenomegaly, normal bowel sounds, no guarding or rigidity. EXTREMITIES: No clubbing, mild edema, no cyanosis, 2+ pulses and upper and lower extremities. MUSCULOSKELETAL: Muscle strength and tone normal. SPINE: No scoliosis or deformity SKIN: No rashes CENTRAL NERVOUS SYSTEM: Alert and oriented -2. No focal deficits, tone is n ormal in all 4 extremities. PSYCHIATRIC: Alert and oriented -2. Appropriate affect. Intact judgment and insight. Results - Laboratory Findings CBC and BMP: 05/18/18 10:45 05/18/18 10:45 PT/INR, D-dimer PT 11.3 sec (9.0-12.0) 05/18/18 10:45 INR 1.1 (<1.2) 05/18/18 10:45 Abnormal lab findings: Abnormal Labs 05/18/18 05/18/18 05/18/18 10:45 10:45 11:16 Hgb 10.8 L Hct 32.2 L Neutrophils # 8.6 H Sodium 116 L* Potassium 5.5 H Chloride 79 L BUN 23 H Glucose 135 H POC Glucose (mg/dL) Osmolality Magnesium 1.5 L AST 51 H ALT 131 H Urine Appearance Cloudy H Urine Protein 1+ H Urine Blood Trace H Urine Nitrite Positive H Ur Leukocyte Esterase Large H Urine RBC 8 H Urine WBC >182 H Urine WBC Clumps Rare H Urine Bacteria Moderate H Urine Mucus Rare H 05/18/18 05/18/18 14:25 15:59 Hgb Hct Neutrophils # Sodium Potassium Chloride BUN Glucose POC Glucose (mg/dL) 124 H Osmolality 247 L* Magnesium AST ALT Urine Appearance Urine Protein Urine Blood Urine Nitrite Ur Leukocyte Esterase Urine RBC Urine WBC Urine WBC Clumps Urine Bacteria Urine Mucus - Diagnostic Findings Chest x-ray: report reviewed, image reviewed Additional studies: EKG reviewed Assessment and Plan Plan: Assessment: #1. Acute hyponatremia, related to acute exacerbation of chronic congestive heart failure. Admission sodium was 116, with low serum osmolality of 247, and urine osmolality of 536. Patient is on IV Lasix, and 3% hypertonic saline #2. Mild hyperkalemia #3. Acute urinary tract infection, urine culture and blood cultures pending #4. Chronic and persistent atrial fibrillation on Eliquis #5. Severe aortic and severe mitral stenosis, with severe pulmonary hypertension #6. Hypertension, hyperlipidemia #7. Previous episode of myocardial infarction #8. Coronary artery disease #9. Diabetes mellitus type 2 #10. Hypothyroidism #11. History of dementia #12. Chest small bowel obstruction with exploratory laparotomy and lysis of adhesions #13. History of CVA with residual left-sided weakness Plan: Continue with hypertonic 3% saline, agree with IV diuretics, patient is hemodynamically stable, no shortness of breath or chest pain, does have significant generalized edema. Nephrology service has been consulted. Her oxygenation is stable currently, she is on 3 L of oxygen, maintaining O2 sat at 100. Blood and urine cultures have been sent, and are pending at this time, serum sodium will be checked every 4 hours random serum cortisol is any 22. TSH has been ordered, and pending at this time. Continue current antibiotic coverage, continue oral anticoagulation, GI DVT prophylaxis. I performed a history & physical examination of the patient and discussed their management with my nurse practitioner, Sarah Gunn. I reviewed the nurse practitioner's note and agree with the documented findings and plan of care. Lung sounds are positive for a few scattered crackles. The findings and the impression was discussed with the patient. I attest to the documentation by the nurse practitioner. Time with Patient: Greater than 30
[2018-05-18] MEDS: FUROSEMIDE 10 MG/ML 4 ML VIAL IV SCH ×2 (18:08→18:31)
[2018-05-18] MEDS: metFORMIN 500 MG TAB PO SCH (18:08)
[2018-05-18] MEDS: FERROUS SULFATE 325 MG TAB PO SCH (18:08)
[2018-05-18] MEDS: ATORVASTATIN 80 MG TAB PO SCH (21:09)
[2018-05-18] MEDS: APIXABAN 2.5 MG TABLET PO SCH (21:10)
[2018-05-18] MEDS: METOPROLOL TARTRATE 12.5 MG TAB PO SCH (21:10)
[2018-05-18] MEDS: AMIODARONE 200 MG TAB PO SCH (21:10)
[2018-05-19] MEDS: FUROSEMIDE 10 MG/ML 4 ML VIAL IV SCH (01:34)
[2018-05-19 05:32] LABS: Basophils % (A) 0 %; Eosinophils # (A) 0.1 k/uL (0-0.7); Eosinophils % (A) 1 %; HCT 30.1 % (34.0-46.0); HGB 10.2 gm/dL (11.4-16.0); Lymphocytes % (A) 10 %; MCH 28.5 pg (25.0-35.0); MCHC 33.8 g/dL (31.0-37.0); MCV 84.2 fL (80.0-100.0); Monocytes # (A) 0.6 k/uL (0-1.0); Monocytes % (A) 7 %; Neutrophils # (A) 7.6 k/uL (1.3-7.7); Neutrophils % (A) 81 %; Platelet Count 416 k/uL (150-450); RBC 3.57 m/uL (3.80-5.40); RDW 15.8 % (11.5-15.5); WBC 9.4 k/uL (3.8-10.6)
[2018-05-19 05:39] LABS: Albumin 3.2 g/dL (3.5-5.0); Calcium 8.4 mg/dL (8.4-10.2); Potassium 4.9 mmol/L (3.5-5.1); Total Bilirubin 0.8 mg/dL (0.2-1.3); Total Protein 5.7 g/dL (6.3-8.2)
[2018-05-19] MEDS ORDERED: FUROSEMIDE 10 MG/ML 2 ML VIAL IV ONE (06:35)
[2018-05-19] MEDS: PANTOPRAZOLE 40 MG TABLET PO SCH (06:46)
[2018-05-19] MEDS ORDERED: Magnesium Replacement Protocol 1 EACH MISC MISCELLANE PRN (07:01)
[2018-05-19 07:21] LABS: T4, Free (Free Thyroxine) 1.45 ng/dL (0.78-2.19)
--- NOTE | 2018-05-19 08:09 | XR ---
EXAMINATION TYPE: XR chest 1V portable DATE OF EXAM: 05/19/2018 CLINICAL HISTORY: Difficulty breathing progress study. TECHNIQUE: Single AP portable upright view of the chest is obtained. COMPARISON: Chest x-ray from one day earlier and older studies. FINDINGS: There is persistent cardiomegaly with central vascular congestion and bibasilar opacities. No pneumothorax is seen bilaterally. Atherosclerotic thoracic aorta is redemonstrated. Multilevel sp urring in the spine is redemonstrated. Degenerative change right glenohumeral joint with high riding humeral head suggesting chronic rotator cuff tear is redemonstrated. IMPRESSION: Findings consistent with CHF exacerbation remain present as there is cardiomegaly with mo derate central vascular congestion and small to moderate bilateral pleural effusions all redemonstrat ed. Underlying bibasilar compressive atelectasis is presumed.
[2018-05-19] MEDS: IPRATROPIUM-ALBUTEROL 3 ML NEB INHALATION SCH ×3 (08:31→20:50)
[2018-05-19] MEDS: metFORMIN 500 MG TAB PO SCH ×2 (09:15→18:22)
[2018-05-19] MEDS: MAGNESIUM OXIDE 400 MG TAB PO SCH ×2 (09:15→09:16)
[2018-05-19] MEDS: FERROUS SULFATE 325 MG TAB PO SCH ×2 (09:15→18:22)
[2018-05-19] MEDS: METOPROLOL TARTRATE 12.5 MG TAB PO SCH ×2 (09:15→20:55)
[2018-05-19] MEDS: ASPIRIN 81 MG PO SCH (09:16)
[2018-05-19] MEDS: CHOLECALCIFEROL 1,000 UNIT TAB PO SCH (09:16)
[2018-05-19] MEDS: AMIODARONE 200 MG TAB PO SCH ×2 (09:16→20:54)
[2018-05-19] MEDS: APIXABAN 2.5 MG TABLET PO SCH ×2 (09:16→20:54)
[2018-05-19] MEDS: DOCUSATE 100 MG CAP PO SCH (09:16)
--- NOTE | 2018-05-19 09:16 | P.PN ---
Subjective Progress Note Date: 05/19/18 Principal diagnosis: Shortness of breath, weakness, lethargy hyponatremia This is a 87-year-old white female patient with past medical history of chronic congestive heart failure, chronic atrial fibrillation on Eliquis, severe aortic stenosis with mitral stenosis, severe pulmonary hypertension, coronary artery disease with remote history of myocardial infarction, history of CVA with left- sided weakness, dementia, hyperlipidemia, hypothyroidism, history of small bowel obstruction, status post exploratory lap with lysis of adhesions. Patient was recently hospitalized in the beginning of May for acute exacerbation of chronic congestive heart failure, at that time echocardiogram was completed, and it was a difficult study, showed severe aortic stenosis, and severe mitral stenosis, EF was not taken. Patient was discharged to [facility] on the [place] after discharge, and patient recently was just from [facility] about a week ago, she was seen by Dr. Rivera last week in the office, and her serum sodium level was low, her Lasix was discontinued, and patient was placed on 1000 ML water restriction. Over the weekend, patient started having increased abdominal distention, wea kness, lethargy. Patient was feeling completely exhausted, she denied any difficulty breathing, denied any chest pain, denied any fever or chills, no syncopal episodes, no nausea, no vomiting or diarrhea, no abdominal pain, no cough, fever or chills. Denies any increased swelling in her lower extremities. Chest x-ray was taken and showed pulmonary venous congestion with cardiomegaly and small pleural effusions and atelectasis. Labwork showed white blood cell count of 10.4, hemoglobin of 10.8, serum sodium was 116, previous serum sodium from 05/09/2018 was 132. Potassium is 5.5, chloride was 79, CO2 is 27, B1 is 23, creatinine 0.68, AST was 51, ALT was 131, magnesium was 1.5, troponin was 0.027, urinalysis was there for evidence of infection, with large amount of leukocyte esterase, nitrite, red blood cells, and greater than 182 white blood cells, and bacteria. Urine osmolality at 536, which is within normal limits. Serum osmolality was low, at 247, serum cortisol was 22. No fever or chills, denies any shortness of breath, she is resting comfortably on the gurney, she is being seen in the emergency department, awaiting a bed in the intensive care unit, on 3 L per nasal cannula her pulse ox is 100%, lung sounds are positive for scattered crackles, no rhonchi or wheezing. She has daughters at the bedside, and helping with the history. Patient was started on Rocephin, she was given a liter of 0.9 normal saline in the emergency department, and now she is on hypertonic saline at a rate of 20 ML per hour, she is on IV Lasix at 40 mg every 8 hours, hemodynamics are stable, she is in A. fib with a controlled rate, she is on oral anticoagulation with Eliquis. On 05/19/2018 patient seen in follow-up in the intensive care unit, she is awake and alert, in no acute distress, currently on no supplemental oxygen, hypertonic saline is on hold, this morning his sodium is 119, patient denies any shortness of breath or chest pain, was given a dose of Lasix this morning 20 mg IV push, maintenance dose IV Lasix has been discontinued, nephrology is managing the IV fluids and the diuretics. Room air pulse ox is 93%, afebrile, hemodynamically patient is stable. Cultures pending, urine culture is in progress as well, no fever no chills, antibiotic coverage in the form of Rocephin. This morning's labs have been reviewed, with blood cell count is 9.4, hemoglobin is 10.2, potassium is 4.9, chloride is 84, BUN is 20 and creatinine is 0.76, proBNP was elevated at 9660, TSH was 4.710, and patient will be started on Synthroid 50 g daily. Lung sounds are positive for a few scattered rales at the bases, no rhonchi, no wheezing. Still has some lower extremity edema, improved in appearance, and patient is producing 15-20 ML of urine hourly. Objective - Vital Signs Vital signs: Vital Signs Temp 97.9 F 05/19/18 08:00 Pulse 82 05/19/18 08:00 Resp 17 05/19/18 08:00 BP 104/75 05/19/18 08:00 Pulse Ox 93 L 05/19/18 08:00 Intake & Output 05/18/18 05/19/18 05/19/18 18:59 06:59 18:59 Intake Total 150 0 Output Total 420 365 Balance -270 -365 Weight 79.379 kg Intake: IV 0 0 Sodium Chloride 3%( 0 0 Hypertonic) 500 ml @ 20 mls/hr IV .Q24H COUNT INCLUDES THE [facility] Rx#: [id number] Tube Feeding 150 Output: Urine 420 365 Other: Voiding Method Indwelling Catheter - Exam GENERAL EXAM: Alert, pleasant, 87-year-old white female, sitting up in bed, eating breakfast, in no acute distress, supplemental oxygen, pulse ox is 93% HEAD: Normocephalic/atraumatic. EYES: Normal reaction of pupils, equal size. Conjunctiva pink, sclera white. NOSE: Clear with pink turbinates. THROAT: No erythema or exudates. NECK: No masses, no JVD, no thyroid enlargement, no adenopathy. CHEST: No chest wall deformity. Symmetrical expansion. LUNGS: Equal air entry with a few scattered crackles CVS: Regular rate and rhythm, normal S1 and S2, no gallops, no murmurs, no rubs ABDOMEN: Soft, nontender. No hepatosplenomegaly, normal bowel sounds, no guarding or rigidity. EXTREMITIES: No clubbing, mild edema, no cyanosis, 2+ pulses and upper and lower extremities. MUSCULOSKELETAL: Muscle strength and tone normal. SPINE: No scoliosis or deformity SKIN: No rashes CENTRAL NERVOUS SYSTEM: Alert and oriented -2. No focal deficits, tone is normal in all 4 extremities. PSYCHIATRIC: Alert and oriented -2. Appropriate affect. Intact judgment and insight. - Labs CBC & Chem 7: 05/19/18 04:51 05/19/18 04:51 Labs: Abnormal Lab Results - Last 24 Hours (Table) 05/18/18 05/18/18 05/18/18 Range/Units 10:45 10:45 11:16 RBC (3.80-5.40) m/uL Hgb 10.8 L (11.4-16.0) gm/dL Hct 32.2 L (34.0-46.0) % RDW (11.5-15.5) % Neutrophils # 8.6 H (1.3-7.7) k/uL Sodium 116 L* (137-145) mmol/L Potassium 5.5 H (3.5-5.1) mmol/L Chloride 79 L (98-107) mmol/L BUN 23 H (7-17) mg/dL Glucose 135 H (74-99) mg/dL POC Glucose (mg/dL) (75-99) mg/dL Osmolality (280-301) mosm/kg Magnesium 1.5 L (1.6-2.3) mg/dL AST 51 H (14-36) U/L ALT 131 H (9-52) U/L Total Protein (6.3-8.2) g/dL Albumin (3.5-5.0) g/dL TSH (0.465-4.680) mIU/L Urine Appearance Cloudy H (Clear) Urine Protein 1+ H (Negative) Urine Blood Trace H (Negative) Urine Nitrite Positive H (Negative) Ur Leukocyte Esterase Large H (Negative) Urine RBC 8 H (0-5) /hpf Urine WBC >182 H (0-5) /hpf Urine WBC Clumps Rare H (None) /hpf Urine Bacteria Moderate H (None) /hpf Urine Mucus Rare H (None) /hpf 05/18/18 05/18/18 05/18/18 Range/Units 14:25 15:59 16:22 RBC (3.80-5.40) m/uL Hgb (11.4-16.0) gm/dL Hct (34.0-46.0) % RDW (11.5-15.5) % Neutrophils # (1.3-7.7) k/uL Sodium 119 L* (137-145) mmol/L Potassium (3.5-5.1) mmol/L Chloride (98-107) mmol/L BUN (7-17) mg/dL Glucose (74-99) mg/dL POC Glucose (mg/dL) 124 H (75-99) mg/dL Osmolality 247 L* (280-301) mosm/kg Magnesium (1.6-2.3) mg/dL AST (14-36) U/L ALT (9-52) U/L Total Protein (6.3-8.2) g/dL Albumin (3.5-5.0) g/dL TSH (0.465-4.680) mIU/L Urine Appearance (Clear) Urine Protein (Negative) Urine Blood (Negative) Urine Nitrite (Negative) Ur Leukocyte Esterase (Negative) Urine RBC (0-5) /hpf Urine WBC (0-5) /hpf Urine WBC Clumps (None) /hpf Urine Bacteria (None) /hpf Urine Mucus (None) /hpf 05/18/18 05/19/18 05/19/18 Range/Units 20:33 00:52 04:51 RBC (3.80-5.40) m/uL Hgb (11.4-16.0) gm/dL Hct (34.0-46.0) % RDW (11.5-15.5) % Neutrophils # (1.3-7.7) k/uL Sodium 119 L* 119 L* 119 L* (137-145) mmol/L Potassium (3.5-5.1) mmol/L Chloride 84 L (98-107) mmol/L BUN 20 H (7-17) mg/dL Glucose (74-99) mg/dL POC Glucose (mg/dL) (75-99) mg/dL Osmolality (280-301) mosm/kg Magnesium (1.6-2.3) mg/dL AST (14-36) U/L ALT 99 H (9-52) U/L Total Protein 5.7 L (6.3-8.2) g/dL Albumin 3.2 L (3.5-5.0) g/dL TSH 4.710 H (0.465-4.680) mIU/L Urine Appearance (Clear) Urine Protein (Negative) Urine Blood (Negative) Urine Nitrite (Negative) Ur Leukocyte Esterase (Negative) Urine RBC (0-5) /hpf Urine WBC (0-5) /hpf Urine WBC Clumps (None) /hpf Urine Bacteria (None) /hpf Urine Mucus (None) /hpf 05/19/18 05/19/18 05/19/18 Range/Units 04:51 04:51 04:51 RBC 3.57 L (3.80-5.40) m/uL Hgb 10.2 L (11.4-16.0) gm/dL Hct 30.1 L (34.0-46.0) % RDW 15.8 H (11.5-15.5) % Neutrophils # (1.3-7.7) k/uL Sodium 119 L* (137-145) mmol/L Potassium (3.5-5.1) mmol/L Chloride (98-107) mmol/L BUN (7-17) mg/dL Glucose (74-99) mg/dL POC Glucose (mg/dL) (75-99) mg/dL Osmolality (280-301) mosm/kg Magnesium 1.5 L (1.6-2.3) mg/dL AST (14-36) U/L ALT (9-52) U/L Total Protein (6.3-8.2) g/dL Albumin (3.5-5.0) g/dL TSH (0.465-4.680) mIU/L Urine Appearance (Clear) Urine Protein (Negative) Urine Blood (Negative) Urine Nitrite (Negative) Ur Leukocyte Esterase (Negative) Urine RBC (0-5) /hpf Urine WBC (0-5) /hpf Urine WBC Clumps (None) /hpf Urine Bacteria (None) /hpf Urine Mucus (None) /hpf Microbiology - Last 24 Hours (Table) 05/18/18 14:30 Urine Culture - Preliminary Urine,Catheterized Assessment and Plan Plan: Assessment: #1. Acute hyponatremia, related to acute exacerbation of chronic congestive heart failure. Admission sodium was 116, with low serum osmolality of 247, and urine osmolality of 536. Patient is on IV Lasix, and 3% hypertonic saline. On 05/19/2018 patient is awake and alert, serum sodium is 119, hypertensive and is on hold, she is receiving intermittent doses of Lasix, nephrology is following. #2. Mild hyperkalemia, improved #3. Acute urinary tract infection, urine culture and blood cultures pending #4. Chronic and persistent atrial fibrillation on Eliquis #5. Severe aortic and severe mitral stenosis, with severe pulmonary h ypertension #6. Hypertension, hyperlipidemia #7. Previous episode of myocardial infarction #8. Coronary artery disease #9. Diabetes mellitus type 2 #10. Hypothyroidism #11. History of dementia #12. Chest small bowel obstruction with exploratory laparotomy and lysis of adhesions #13. History of CVA with residual left-sided weakness #14. Hypothyroidism Plan: Patient seen and examined again in the intensive care unit, she is awake and alert, in no acute distress, no shortness of breath, no chest pain, serum sodium is 119, nephrology is following, receiving intermittent doses of Lasix, labs have been reviewed, we will add 50 mg of Synthroid on a daily basis for elevated TSH level. Status has been clarified with the patient and the family, and the patient is DO NOT RESUSCITATE CODE STATUS. Awaiting final results of the blood and urine cultures, continue with current antibiotic coverage. I performed a history & physical examination of the patient and discussed their management with my nurse practitioner, Sarah Gunn. I reviewed the nurse practitioner's note and agree with the documented findings and plan of care. Lung sounds are positive for a few scattered crackles. The findings and the impression was discussed with the patient. I attest to the documentation by the nurse practitioner. Time with Patient: Greater than 30
[2018-05-19] MEDS: MAGNESIUM SULFATE-D5W PMX 1 GM in DEXTROSE/WATER 1 100ML.BAG IVPB SCH ×2 (10:01→11:03)
[2018-05-19 10:30] VITALS: BMI 42.6
[2018-05-19 12:09] LABS: Glucose,Whole Blood 217 mg/dL (75-99)
[2018-05-19] MEDS: INSULIN ASPART (NovoLOG) 100 UNIT/ML VIAL SQ SCH ×3 (12:16→20:55)
[2018-05-19] MEDS ORDERED: FUROSEMIDE 10 MG/ML 4 ML VIAL IV STA (14:05)
--- NOTE | 2018-05-19 14:28 | P.PN ---
Subjective Progress Note Date: 05/19/18 87-year-old female from [facility] on the [place] was sees Dr. Cardenas. She has underlying history of chronic atrial fibrillation, CAD, dementia, diabetes mellitus, CVA residual left hemiparesis, GI bleed in the past along with hypertension previous MA, moderate to severe aortic stenosis who brought to the hospital via EMS secondary to mental status changes, with increasing confusion, patient feels exhausted, for approximately one week, patient denies any lightheadedness or dizziness, no abdominal pain, appetite has been decreased, patient has no new head trauma or concussion, serum sodium performed May 09 shows a sodium of 132, on the ER and 3 her sodium is critical at 116 and significant pyuria with nitrite positivity, 182 with clumping WBCs /hpf. Patient was admitted for urinary tract infection, significant hyponatremia secondary to poor oral intake, patient is not on diuretics prior to admission as this was discontinued 3 days prior to admission, they have started her on fluid restrictions, as her sodium was 114, thereafter started getting more anasarca, periorbital edema, and continued to decline further patient also has abdominal distention without any abdominal pain, bowel movement was yesterday. She was last admitted May 07 - 05/10/2018 secondary to A. fib with RVR unstable angina with elevated troponin, acute hypoxemic Restoril failure secondary to A. fib with RVR, and systolic CHF exacerbation with fluid overload, known history of severe , and LV outlet obstruction severe pulmonary hypertension, chronic anticoagulation, she quietly titration up her amiodarone to 200 mg 3 times a day on discharge, along with Lasix 40 mg daily, and metoprolol 12.5 mg twice a day, In view of the above, her saline supplementation with 0.9 to correct her critical serum sodium will be changed to 3% normal saline, at 30 mL an hour patient will NOT be able to tolerate large volume fluid shift admitted to ICU 05/19: Patient is seen in the intensive care unit. She has been seen by heating worker. Patient has been afebrile, heart rate running in 80s and 90s, blood pressure has been on the lower side through the night currently at 104/75. Pulse ox 93% on room air. Sodium has been 119 through the afternoon and this morning repeat is 118 She was on saline 3% last night. She received 1 dose of IV Lasix 20 mg this morning. Patient is currently not on any IV fluids. She is on 1.2 L fluid restriction and patient is being followed by nephrology.. Chloride is 84, BUN 20 creatinine 0.76. White count is 9.4 and hemoglobin 10.2. Cortisol level XXII. TSH 4.710 and free T4 1.45. Magnesium 1.5. Abdominal x- ray shows nonspecific gas pattern with air seen throughout large and small bowel loops. Bilateral lower lobe infiltrate and small effusion. Abdominal ult rasound showed small volume bright lower quadrant ascites. Review of Systems Constitutional: Reports anorexia, Reports chills, Reports fatigue, Reports lethargy, Reports malaise, Reports weakness, Denies chronic headaches, Denies chronic pain, Denies daytime sleepiness, Denies fever, Denies night sweats, Denies poor appetite, Denies sweats, Denies weight gain, Denies weight loss Ears, nose, mouth and throat: Denies ant. neck pain, Denies bleeding gums, Denies dental pain, Denies dysphagia, Denies epistaxis, Denies headache, Denies hoarseness, Denies mouth pain, Denies nasal congestion, Denies nasal discharge, Denies neck fullness/pressure, Denies neck lump, Denies nose pain, Denies odynophagia, Denies post-nasal drip, Denies sinus pain, Denies sinus pressure, Cardiovascular: Denies chest pain, Denies claudication, Denies decreased exercise tolerance, Denies dyspnea on exertion, Denies edema, Denies high blood pressure, Denies irregular heart beat, Denies leg edema, Denies lightheadedness, Denies orthopnea, Denies palpitations, Denies paroxysmal nocturnal dyspnea, Denies phlebitis, Denies rapid heart beat, Denies shortness of breath, Denies syncope Respiratory: Denies congestion, Denies cough, Denies cough with sputum, Denies dyspnea, Denies excessive sputum, Denies hemoptysis, Denies home oxygen, Denies pain, Denies pain on inspiration, Denies pleurisy, Denies respiratory infections, Denies sleep apnea, Denies snoring, Denies wheezing Gastrointestinal: Denies abdominal pain, Denies belching, Denies bloating, Denies change in bowel habits, Denies coffee ground emesis, Denies constipation, Denies diarrhea, Denies dyspepsia, Denies early satiety, Denies excessive gas, Denies heartburn, Denies hematemesis, Denies hematochezia, Denies indigestion, Denies jaundice, Denies lactose intolerance, Denies loss of appetite, Denies melena, Denies nausea, Denies vomiting Musculoskeletal: Reports generalized weakness Neurological: Reports confusion, Reports memory loss, Reports motor disturbance, Reports weakness Endocrine: Reports cold intolerance, Denies excessive sweating, Denies excessive thirst, Denies fatigue, Denies flushing, Denies heat intolerance, Denies high blood sugars, Denies increase in ring/shoe/hat size, Denies low blood sugars, Denies nocturia, Denies palpitations, Denies polydipsia, Denies polyphagia, Denies polyuria, Denies proptosis, Denies recent glucocorticoid use, Denies thyroid mass, Denies weight change Objective - Vital Signs Vital signs: Vital Signs Temp 98.4 F 05/19/18 04:00 Pulse 90 05/19/18 07:00 Resp 19 05/19/18 07:00 BP 104/57 05/19/18 07:00 Pulse Ox 96 05/19/18 07:00 Intake & Output 05/18/18 05/19/18 05/19/18 18:59 06:59 18:59 Intake Total 150 0 Output Total 420 15 Balance -270 -15 Weight 79.379 kg Intake: IV 0 0 Sodium Chloride 3%( 0 0 Hypertonic) 500 ml @ 20 mls/hr IV .Q24H [facility] Rx#: [id number] Tube Feeding 150 Output: Urine 420 15 Other: Voiding Method Indwelling Catheter - Exam General appearance: cooperative, no acute distress, resting in recliner - EENT Eyes: anicteric sclerae, PERRLA, normal appearance ENT: NA/AT, normal oropharynx - Neck Neck: normal ROM - Respiratory Respiratory: bilateral: CTA, negative: diminished, dullness, rales, rhonchi, wheezing - Cardiovascular Rhythm: regular Heart sounds: normal: S1 Abnormal Heart Sounds: no systolic murmur, no diastolic murmur, no rub, no S3 Gallop, no S4 Gallop, no click, no other - Gastrointestinal General gastrointestinal: normal bowel sounds, soft - Integumentary Integumentary: decreased turgor, normal - Neurologic Neurologic: CNII-XII intact - Musculoskeletal Musculoskeletal: gait normal, strength equal bilaterally - Psychiatric Psychiatric: A&O x's 3, appropriate affect, intact judgment & insight - Labs CBC & Chem 7: 05/19/18 04:51 05/19/18 10:41 Labs: Abnormal Lab Results - Last 24 Hours (Table) 05/18/18 05/18/18 05/18/18 Range/Units 10:45 10:45 11:16 RBC (3.80-5.40) m/uL Hgb 10.8 L (11.4-16.0) gm/dL Hct 32.2 L (34.0-46.0) % RDW (11.5-15.5) % Neutrophils # 8.6 H (1.3-7.7) k/uL Sodium 116 L* (137-145) mmol/L Potassium 5.5 H (3.5-5.1) mmol/L Chloride 79 L (98-107) mmol/L BUN 23 H (7-17) mg/dL Glucose 135 H (74-99) mg/dL POC Glucose (mg/dL) (75-99) mg/dL Osmolality (280-301) mosm/kg Magnesium 1.5 L (1.6-2.3) mg/dL AST 51 H (14-36) U/L ALT 131 H (9-52) U/L Total Protein (6.3-8.2) g/dL Albumin (3.5-5.0) g/dL TSH (0.465-4.680) mIU/L Urine Appearance Cloudy H (Clear) Urine Protein 1+ H (Negative) Urine Blood Trace H (Negative) Urine Nitrite Positive H (Negative) Ur Leukocyte Esterase Large H (Negative) Urine RBC 8 H (0-5) /hpf Urine WBC >182 H (0-5) /hpf Urine WBC Clumps Rare H (None) /hpf Urine Bacteria Moderate H (None) /hpf Urine Mucus Rare H (None) /hpf 05/18/18 05/18/18 05/18/18 Range/Units 14:25 15:59 16:22 RBC (3.80-5.40) m/uL Hgb (11.4-16.0) gm/dL Hct (34.0-46.0) % RDW (11.5-15.5) % Neutrophils # (1.3-7.7) k/uL Sodium 119 L* (137-145) mmol/L Potassium (3.5-5.1) mmol/L Chloride (98-107) mmol/L BUN (7-17) mg/dL Glucose (74-99) mg/dL POC Glucose (mg/dL) 124 H (75-99) mg/dL Osmolality 247 L* (280-301) mosm/kg Magnesium (1.6-2.3) mg/dL AST (14-36) U/L ALT (9-52) U/L Total Protein (6.3-8.2) g/dL Albumin (3.5-5.0) g/dL TSH (0.465-4.680) mIU/L Urine Appearance (Clear) Urine Protein (Negative) Urine Blood (Negative) Urine Nitrite (Negative) Ur Leukocyte Esterase (Negative) Urine RBC (0-5) /hpf Urine WBC (0-5) /hpf Urine WBC Clumps (None) /hpf Urine Bacteria (None) /hpf Urine Mucus (None) /hpf 05/18/18 05/19/18 05/19/18 Range/Units 20:33 00:52 04:51 RBC (3.80-5.40) m/uL Hgb (11.4-16.0) gm/dL Hct (34.0-46.0) % RDW (11.5-15.5) % Neutrophils # (1.3-7.7) k/uL Sodium 119 L* 119 L* 119 L* (137-145) mmol/L Potassium (3.5-5.1) mmol/L Chloride 84 L (98-107) mmol/L BUN 20 H (7-17) mg/dL Glucose (74-99) mg/dL POC Glucose (mg/dL) (75-99) mg/dL Osmolality (280-301) mosm/kg Magnesium (1.6-2.3) mg/dL AST (14-36) U/L ALT 99 H (9-52) U/L Total Protein 5.7 L (6.3-8.2) g/dL Albumin 3.2 L (3.5-5.0) g/dL TSH 4.710 H (0.465-4.680) mIU/L Urine Appearance (Clear) Urine Protein (Negative) Urine Blood (Negative) Urine Nitrite (Negative) Ur Leukocyte Esterase (Negative) Urine RBC (0-5) /hpf Urine WBC (0-5) /hpf Urine WBC Clumps (None) /hpf Urine Bacteria (None) /hpf Urine Mucus (None) /hpf 05/19/18 05/19/18 05/19/18 Range/Units 04:51 04:51 04:51 RBC 3.57 L (3.80-5.40) m/uL Hgb 10.2 L (11.4-16.0) gm/dL Hct 30.1 L (34.0-46.0) % RDW 15.8 H (11.5-15.5) % Neutrophils # (1.3-7.7) k/uL Sodium 119 L* (137-145) mmol/L Potassium (3.5-5.1) mmol/L Chloride (98-107) mmol/L BUN (7-17) mg/dL Glucose (74-99) mg/dL POC Glucose (mg/dL) (75-99) mg/dL Osmolality (280-301) mosm/kg Magnesium 1.5 L (1.6-2.3) mg/dL AST (14-36) U/L ALT (9-52) U/L Total Protein (6.3-8.2) g/dL Albumin (3.5-5.0) g/dL TSH (0.465-4.680) mIU/L Urine Appearance (Clear) Urine Protein (Negative) Urine Blood (Negative) Urine Nitrite (Negative) Ur Leukocyte Esterase (Negative) Urine RBC (0-5) /hpf Urine WBC (0-5) /hpf Urine WBC Clumps (None) /hpf Urine Bacteria (None) /hpf Urine Mucus (None) /hpf Microbiology - Last 24 Hours (Table) 05/18/18 14:30 Urine Culture - Preliminary Urine,Catheterized Assessment and Plan Plan: 1. Critical hyponatremia secondary secondary to poor oral intake. IV fluids per nephrology. Patient is on fluid restriction. Nephrology is on consult. Renal ultrasound. Patient is managed in the intensive care unit. Consult with heating worker in place 2. Chronic atrial fibrillation. Continue Eliquis 2.5 g twice a day, amiodarone 200 mg twice a day, Metoprolol 12.5 mg twice daily. 3. Acute urinary tract infection, monitor for SIRS, Rocephin renal dosing cultures are pending has been sent 4. Anasarca with acute on chronic systolic and diastolic heart failure. Status post 1 dose of Lasix 20 mg IV this morning. 5. Abdominal distention acute. Abdominal x-rays as above. 6. Hyperkalemia most likely secondary to dehydration. Monitor 7. Mild transaminitis, monitor liver function tests, possibly secondary to amiodarone and CHF, might need hepatitis panel should numbers progress 8. Valvular heart disease: Patient had severe aortic stenosis and mild mitral regurgitation both are treated medically she had decline doing surgery in the past. 9. Severe pulmonary hypertension based on echocardiogram May 10. Diabetes diabetes type 2. Continue metformin 500 mg twice daily and NovoLog scale before meals and at bedtime. 11. Hypothyroidism: TSH elevated at 6.7 05/07/2018 Most likely brought by amiodarone at this point patient is not on any medication, levothyroxine was not started at that time of discharge plan was to monitor next lab draw to 4 weeks 12. Hyperlipidemia: Has been on atorvastatin 80 mg daily. 13. Incontinence: Has been on Detrol. 14. Reactive airway. Patient remain on albuterol/ipratropium. 15. GERD/GI prophylaxis: Remain on pantoprazole 40 mg daily. 16. Alzheimer's dementia. 17. 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 18. Hypomagnesemia, status post replacement. Continue magnesium oxide 400 mg daily. CODE STATUS: DO NOT RESUSCITATE. Discharge plan: Return to [facility] Impression and plan of care have been directed as dictated by the signing physician. Isamar Clinton nurse practitioner acting as scribe for signing ph ysician.
[2018-05-19] MEDS ORDERED: SODIUM CHLORIDE TAB 1 GM TAB PO STA (17:07)
--- NOTE | 2018-05-19 17:55 | CONS ---
CONSULTATION REASON FOR CONSULT: Hyponatremia. HISTORY OF PRESENT ILLNESS: The patient is an 87-year-old female who was admitted to the hospital with a history of altered mentation. The patient is a skilled nursing resident and she was noticed to have change in her mentation. She was also increasingly weak. When patient was brought into the ER, her sodium was noted to be 116 mEq/L. She was started on 3% saline. Her sodium improved to 119 and the 3% saline was discontinued last night. Her serum sodium this morning was 119 and then it was 118. She did receive a dose of Lasix, initially 20 mg early this morning and now 40 mg. Chest x-ray shows evidence of CHF. Urine osmolality was 536. Random urine sodium was 45. Patient's UA is positive for urinary tract infection. PAST MEDICAL HISTORY: Significant for: 1. Coronary artery disease, moderate to severe aortic stenosis. 2. Chronic atrial fibrillation. 3. Previous history of CVA. 4. Type 2 diabetes. 5. Gastroesophageal reflux disease. 6. Hyperlipidemia. 7. Chronic back pain. 8. History of small-bowel obstruction. 9. Chronic anemia. PAST SURGICAL HISTORY: 1. Hysterectomy. 2. Coronary angioplasty. SOCIAL HISTORY: Negative for smoking, drug abuse or alcohol abuse. MEDICATIONS: Prior to admission included: 1. Lipitor. 2. Eliquis. 3. Iron. 4. Mylanta. 5. Melatonin. 6. Metformin .. 7. Protonix. 8. Cordarone. 9. Lopressor. ALLERGIES: Include: 1. FLU SHOT. 2. LATEX. 3. SULFA. REVIEW OF SYSTEMS: Negative for fever, chills, nausea, vomiting or diarrhea. No abdominal pain. PHYSICAL EXAMINATION: On examination this morning, patient was comfortable. She is awake. She is not in any acute distress. Patient was answering simple questions. Her blood pressure is on the lower side with systolic around 91 to 104 mmHg. Heart rate was 68 per minute. EXAMINATION OF THE HEART: S1 and S2. EXAMINATION OF LUNGS: Bilateral breath sounds are heard. Decreased breath sounds at the bases. ABDOMEN: Soft, non-tender. Examination of lower extremities shows edema 1+ bilaterally. [employer] exam is not performed in detail. LABS: Hemoglobin 10.2, sodium of 118 this morning, potassium 4.9. Previous potassium was 5.5 on admission. Magnesium is 1.5, calcium 8.4. TSH was 4.7. Chest x-ray shows evidence of CHF. ASSESSMENT: 1. Hypervolemic hyponatremia, status post 3% saline last night. The 3% saline has been discontinued. I will continue to diurese the patient. Serum sodium has not worsened significantly. She is staying at about 118. She may benefit from one dose of tolvaptan as well. I will give her the tolvaptan if her sodium level drops further tonight. Blood pressure is low and serum cortisol was checked and it was not low. It was 22. 2. Mild hyperkalemia, currently improved. There was concern about adrenal insufficiency with the hypotension, hyponatremia and hyperkalemia, but again serum cortisol level was not low. 3. Coronary artery disease with history of myocardial infarction. 4. History of severe aortic and mitral stenosis. 5. Severe pulmonary hypertension. PLAN: Repeat sodium this evening. I will give her one dose of sodium chloride tabs, as blood pressure is low. We need to avoid prolonged high salt intake secondary to underlying hypervolemia. If the serum sodium continues to drop, I will use tolvaptan. Thank you for this consultation. Will continue to follow the patient with you during her hospitalization. MMODL / IJN: [id number] /
[2018-05-19 18:30] LABS: Glucose,Whole Blood 174 mg/dL (75-99)
[2018-05-19] MEDS ORDERED: FUROSEMIDE 10 MG/ML 4 ML VIAL IV ONE (20:00)
[2018-05-19 20:48] LABS: Glucose,Whole Blood 113 mg/dL (75-99)
[2018-05-19] MEDS: ATORVASTATIN 80 MG TAB PO SCH (20:54)
[2018-05-20 04:32] LABS: Basophils % (A) 0 %; Eosinophils # (A) 0.1 k/uL (0-0.7); Eosinophils % (A) 2 %; HCT 29.7 % (34.0-46.0); HGB 10.1 gm/dL (11.4-16.0); Lymphocytes # (A) 1.2 k/uL (1.0-4.8); Lymphocytes % (A) 17 %; MCH 28.9 pg (25.0-35.0); Mean Platelet Volume 5.9; Monocytes # (A) 0.5 k/uL (0-1.0); Monocytes % (A) 7 %; Neutrophils # (A) 5.2 k/uL (1.3-7.7); Neutrophils % (A) 73 %; Platelet Count 374 k/uL (150-450); RBC 3.49 m/uL (3.80-5.40); RDW 15.9 % (11.5-15.5); WBC 7.2 k/uL (3.8-10.6)
[2018-05-20 04:48] LABS: Calcium 8.2 mg/dL (8.4-10.2); Magnesium 1.8 mg/dL (1.6-2.3); Phosphorus 3.7 mg/dL (2.5-4.5); Potassium 4.6 mmol/L (3.5-5.1)
[2018-05-20] MEDS: MAGNESIUM SULFATE-D5W PMX 1 GM in DEXTROSE/WATER 1 100ML.BAG IVPB SCH ×2 (05:54→07:05)
[2018-05-20] MEDS: PANTOPRAZOLE 40 MG TABLET PO SCH (07:05)
[2018-05-20] MEDS: INSULIN ASPART (NovoLOG) 100 UNIT/ML VIAL SQ SCH ×4 (07:05→20:52)
[2018-05-20] MEDS: LEVOTHYROXINE 50 MCG TAB PO SCH (07:05)
[2018-05-20 07:12] LABS: Glucose,Whole Blood 130 mg/dL (75-99)
--- NOTE | 2018-05-20 08:10 | XR ---
EXAMINATION TYPE: XR chest 1V portable DATE OF EXAM: 05/20/2018 Comparison: 05/19/2018 Clinical History: 87-year-old female Short of breath Findings: Heart remains enlarged. Atherosclerotic arch calcifications. Some improvement in the appearance of th e upper lung pulmonary vasculature. Continued small to moderate pleural effusions with adjacent opaci ty. Impression: 1. CHF with improving pulmonary vascular congestion. 2. Continued small to moderate pleural effusions with atelectasis and/or consolidation.
[2018-05-20] MEDS: metFORMIN 500 MG TAB PO SCH ×2 (08:21→17:02)
[2018-05-20] MEDS: CHOLECALCIFEROL 1,000 UNIT TAB PO SCH (08:21)
[2018-05-20] MEDS: METOPROLOL TARTRATE 12.5 MG TAB PO SCH ×2 (08:21→20:30)
[2018-05-20] MEDS: AMIODARONE 200 MG TAB PO SCH ×2 (08:22→20:51)
[2018-05-20] MEDS: FERROUS SULFATE 325 MG TAB PO SCH ×2 (08:22→17:02)
[2018-05-20] MEDS: APIXABAN 2.5 MG TABLET PO SCH ×2 (08:22→20:51)
[2018-05-20] MEDS: MAGNESIUM OXIDE 400 MG TAB PO SCH (08:22)
[2018-05-20] MEDS: ASPIRIN 81 MG PO SCH (08:22)
[2018-05-20] MEDS: IPRATROPIUM-ALBUTEROL 3 ML NEB INHALATION SCH ×3 (08:24→20:13)
[2018-05-20] MEDS ORDERED: FUROSEMIDE 20 MG TAB PO SCH (09:00)
--- NOTE | 2018-05-20 09:43 | P.PN ---
Subjective Progress Note Date: 05/20/18 Principal diagnosis: Shortness of breath, weakness, lethargy hyponatremia This is a 87-year-old white female patient with past medical history of chronic congestive heart failure, chronic atrial fibrillation on Eliquis, severe aortic stenosis with mitral stenosis, severe pulmonary hypertension, coronary artery disease with remote history of myocardial infarction, history of CVA with left- sided weakness, dementia, hyperlipidemia, hypothyroidism, history of small bowel obstruction, status post exploratory lap with lysis of adhesions. Patient was recently hospitalized in the beginning of May for acute exacerbation of chronic congestive heart failure, at that time echocardiogram was completed, and it was a difficult study, showed severe aortic stenosis, and severe mitral stenosis, EF was not taken. Patient was discharged to [facility] on the [facility] after discharge, and patient recently was just from [facility] about a week ago, she was seen by Dr. Rivera last week in the office, and her serum sodium level was low, her Lasix was discontinued, and patient was placed on 1000 ML water restriction. Over the weekend, patient started having increased abdominal distention, wea kness, lethargy. Patient was feeling completely exhausted, she denied any difficulty breathing, denied any chest pain, denied any fever or chills, no syncopal episodes, no nausea, no vomiting or diarrhea, no abdominal pain, no cough, fever or chills. Denies any increased swelling in her lower extremities. Chest x-ray was taken and showed pulmonary venous congestion with cardiomegaly and small pleural effusions and atelectasis. Labwork showed white blood cell count of 10.4, hemoglobin of 10.8, serum sodium was 116, previous serum sodium from 05/09/2018 was 132. Potassium is 5.5, chloride was 79, CO2 is 27, B1 is 23, creatinine 0.68, AST was 51, ALT was 131, magnesium was 1.5, troponin was 0.027, urinalysis was there for evidence of infection, with large amount of leukocyte esterase, nitrite, red blood cells, and greater than 182 white blood cells, and bacteria. Urine osmolality at 536, which is within normal limits. Serum osmolality was low, at 247, serum cortisol was 22. No fever or chills, denies any shortness of breath, she is resting comfortably on the gurney, she is being seen in the emergency department, awaiting a bed in the intensive care unit, on 3 L per nasal cannula her pulse ox is 100%, lung sounds are positive for scattered crackles, no rhonchi or wheezing. She has daughters at the bedside, and helping with the history. Patient was started on Rocephin, she was given a liter of 0.9 normal saline in the emergency department, and now she is on hypertonic saline at a rate of 20 ML per hour, she is on IV Lasix at 40 mg every 8 hours, hemodynamics are stable, she is in A. fib with a controlled rate, she is on oral anticoagulation with Eliquis. On 05/19/2018 patient seen in follow-up in the intensive care unit, she is awake and alert, in no acute distress, currently on no supplemental oxygen, hypertonic saline is on hold, this morning his sodium is 119, patient denies any shortness of breath or chest pain, was given a dose of Lasix this morning 20 mg IV push, maintenance dose IV Lasix has been discontinued, nephrology is managing the IV fluids and the diuretics. Room air pulse ox is 93%, afebrile, hemodynamically patient is stable. Cultures pending, urine culture is in progress as well, no fever no chills, antibiotic coverage in the form of Rocephin. This morning's labs have been reviewed, with blood cell count is 9.4, hemoglobin is 10.2, potassium is 4.9, chloride is 84, BUN is 20 and creatinine is 0.76, proBNP was elevated at 9660, TSH was 4.710, and patient will be started on Synthroid 50 g daily. Lung sounds are positive for a few scattered rales at the bases, no rhonchi, no wheezing. Still has some lower extremity edema, improved in appearance, and patient is producing 15-20 ML of urine hourly. On 05/20/2018 patient seen in follow-up in the intensive care unit. She is awake and alert, in no acute distress, on room air, denies any difficulty breathing, denies any chest pain, she is eating breakfast, IV 0.9 normal saline at a rate of 10 per hour, no fever or chills, hemodynamically stable, serum sodium on today's labs is 122, white blood cell count is 7.2, hemoglobin is 10.1, B1 is 22 and creatinine 0.87. Today's chest x-ray has been reviewed with Dr. Lan, and shows CHF with improving pulmonary vascular congestion, patient received 3 doses of IV Lasix per nephrology service yesterday, there was small to moderate pleural effusions with atelectasis. Blood cultures show no growth, urine culture showed presumptive staph aureus, final culture is pending, patient is on Rocephin, we will add vancomycin for presumptive staph. Objective - Vital Signs Vital signs: Vital Signs Temp 97.7 F 05/20/18 08:00 Pulse 78 05/20/18 09:00 Resp 17 05/20/18 09:00 BP 81/65 05/20/18 09:00 Pulse Ox 98 05/20/18 09:00 Intake & Output 05/19/18 05/20/18 05/20/18 18:59 06:59 18:59 Intake Total 750 150 Output Total 860 1600 335 Balance -110 -1600 -185 Weight 116.3 kg Intake: IV 250 150 Magnesium Sulfate-D5w Pmx 200 100 1 gm In Dextrose/Water 1 100ml.bag @ 100 mls/hr IVPB Q1H EPIFANIO Rx#: [id number] Sodium Chloride 3%( 0 Hypertonic) 500 ml @ 20 mls/hr IV .Q24H EPIFANIO Rx#: [id number] [id number] 1 gm In 50 50 Sodium Chloride 0.9% 50 ml @ 100 mls/hr IVPB Q24HR EPIFANIO Rx#:[id number] Oral 500 Output: Urine 860 1600 335 Other: Voiding Method Indwelling Catheter Indwelling Catheter Indwelling Catheter - Exam GENERAL EXAM: Alert, pleasant, 87-year-old white female, sitting up in bed, eating breakfast, in no acute distress, supplemental oxygen, pulse ox is 93% HEAD: Normocephalic/atraumatic. EYES: Normal reaction of pupils, equal size. Conjunctiva pink, sclera white. NOSE: Clear with pink turbinates. THROAT: No erythema or exudates. NECK: No masses, no JVD, no thyroid enlargement, no adenopathy. CHEST: No chest wall deformity. Symmetrical expansion. LUNGS: Equal air entry with a few scattered crackles CVS: Regular rate and rhythm, normal S1 and S2, no gallops, no murmurs, no rubs ABDOMEN: Soft, nontender. No hepatosplenomegaly, normal bowel sounds, no guarding or rigidity. EXTREMITIES: No clubbing, mild edema, no cyanosis, 2+ pulses and upper and lower extremities. MUSCULOSKELETAL: Muscle strength and tone normal. SPINE: No scoliosis or deformity SKIN: No rashes CENTRAL NERVOUS SYSTEM: Alert and oriented -2. No focal deficits, tone is no rmal in all 4 extremities. PSYCHIATRIC: Alert and oriented -2. Appropriate affect. Intact judgment and insight. - Labs CBC & Chem 7: 05/20/18 04:14 05/20/18 04:14 Labs: Abnormal Lab Results - Last 24 Hours (Table) 05/19/18 05/19/18 05/19/18 Range/Units 10:41 11:58 14:37 RBC (3.80-5.40) m/uL Hgb (11.4-16.0) gm/dL Hct (34.0-46.0) % RDW (11.5-15.5) % Sodium 118 L* 118 L* (137-145) mmol/L Chloride (98-107) mmol/L BUN (7-17) mg/dL Glucose (74-99) mg/dL POC Glucose (mg/dL) 217 H (75-99) mg/dL Calcium (8.4-10.2) mg/dL 05/19/18 05/19/18 05/19/18 Range/Units 17:02 18:18 20:36 RBC (3.80-5.40) m/uL Hgb (11.4-16.0) gm/dL Hct (34.0-46.0) % RDW (11.5-15.5) % Sodium 121 L (137-145) mmol/L Chloride (98-107) mmol/L BUN (7-17) mg/dL Glucose (74-99) mg/dL POC Glucose (mg/dL) 174 H 113 H (75-99) mg/dL Calcium (8.4-10.2) mg/dL 05/19/18 05/20/18 05/20/18 Range/Units 21:08 04:14 04:14 RBC 3.49 L (3.80-5.40) m/uL Hgb 10.1 L (11.4-16.0) gm/dL Hct 29.7 L (34.0-46.0) % RDW 15.9 H (11.5-15.5) % Sodium 121 L 122 L (137-145) mmol/L Chloride 86 L (98-107) mmol/L BUN 22 H (7-17) mg/dL Glucose 101 H (74-99) mg/dL POC Glucose (mg/dL) (75-99) mg/dL Calcium 8.2 L (8.4-10.2) mg/dL 05/20/18 Range/Units 07:00 RBC (3.80-5.40) m/uL Hgb (11.4-16.0) gm/dL Hct (34.0-46.0) % RDW (11.5-15.5) % Sodium (137-145) mmol/L Chloride (98-107) mmol/L BUN (7-17) mg/dL Glucose (74-99) mg/dL POC Glucose (mg/dL) 130 H (75-99) mg/dL Calcium (8.4-10.2) mg/dL Microbiology - Last 24 Hours (Table) 05/18/18 14:30 Urine Culture - Preliminary Urine,Catheterized Presumptive Staph aureus 05/18/18 14:25 Blood Culture - Preliminary Blood No Growth after 24 hours Assessment and Plan Plan: Assessment: #1. Acute hyponatremia, related to acute exacerbation of chronic congestive h eart failure. Admission sodium was 122, with low serum osmolality of 247, and urine osmolality of 536. Patient is on IV Lasix, and 3% hypertonic saline. On 05/19/2018 patient is awake and alert, serum sodium is 119, hypertensive and is on hold, she is receiving intermittent doses of Lasix, nephrology is following. #2. Mild hyperkalemia, improved #3. Acute urinary tract infection, urine culture positive for presumptive staph, blood cultures show no growth #4. Chronic and persistent atrial fibrillation on Eliquis #5. Severe aortic and severe mitral stenosis, with severe pulmonary hype rtension #6. Hypertension, hyperlipidemia #7. Previous episode of myocardial infarction #8. Coronary artery disease #9. Diabetes mellitus type 2 #10. Hypothyroidism #11. History of dementia #12. Chest small bowel obstruction with exploratory laparotomy and lysis of adhesions #13. History of CVA with residual left-sided weakness #14. Hypothyroidism Plan: We'll continue current medical treatment, will add maintenance dose of oral Lasix 20 mg once daily, no fever no chills, hemodynamically stable, serum sodium is up to 122. We will add vancomycin pharmacy to dose for presumptive staph in the urine culture, continue Rocephin, no acute events overnight, from pulmonary perspective patient can be moved out of the intensive care unit today to general medical floor. I performed a history & physical examination of the patient and discussed their management with my nurse practitioner, Sarah Gunn. I reviewed the nurse practitioner's note and agree with the documented findings and plan of care. Lung sounds are positive for a few scattered crackles. The findings and the impression was discussed with the patient. I attest to the documentation by the nurse practitioner. Time with Patient: Less than 30
[2018-05-20 12:04] LABS: Glucose,Whole Blood 174 mg/dL (75-99)
[2018-05-20] MEDS ORDERED: FUROSEMIDE 10 MG/ML 4 ML VIAL IV STA (13:21)
[2018-05-20] MEDS ORDERED: VANCOMYCIN 1,000 MG in SODIUM CHLORIDE 0.9% 250 ML IVPB STA ×2 (13:37→22:48)
--- NOTE | 2018-05-20 14:18 | P.PN ---
Subjective Progress Note Date: 05/20/18 87-year-old female from [facility] on the [place] was sees Dr. Cardenas. She has underlying history of chronic atrial fibrillation, CAD, dementia, diabetes mellitus, CVA residual left hemiparesis, GI bleed in the past along with hypertension previous [place], moderate to severe aortic stenosis who brought to the hospital via EMS secondary to mental status changes, with increasing confusion, patient feels exhausted, for approximately one week, patient denies any lightheadedness or dizziness, no abdominal pain, appetite has been decreased, patient has no new head trauma or concussion, serum sodium performed May 09 Harry shows a sodium of 132, on the ER and 3 her sodium is critical at 116 and significant pyuria with nitrite positivity, 182 with clumping WBCs /hpf. Patient was admitted for urinary tract infection, significant hyponatremia secondary to poor oral intake, patient is not on diuretics prior to admission as this was discontinued 3 days prior to admission, they have started her on fluid restrictions, as her sodium was 114, thereafter started getting more anasarca, periorbital edema, and continued to decline further patient also has abdominal distention without any abdominal pain, bowel movement was yesterday. She was last admitted May 07 - 05/10/2018 secondary to A. fib with RVR unstable angina with elevated troponin, acute hypoxemic Restoril failure secondary to A. fib with RVR, and systolic CHF exacerbation with fluid overload, known history of severe , and LV outlet obstruction severe pulmonary hypertension, chronic anticoagulation, she quietly titration up her amiodarone to 200 mg 3 times a day on discharge, along with Lasix 40 mg daily, and metoprolol 12.5 mg twice a day, In view of the above, her saline supplementation with 0.9 to correct her critical serum sodium will be changed to 3% normal saline, at 30 mL an hour patient will NOT be able to tolerate large volume fluid shift admitted to ICU 05/19: Patient is seen in the intensive care unit. She has been seen by fishing boat captain. Patient has been afebrile, heart rate running in 80s and 90s, blood pressure has been on the lower side through the night currently at 104/75. Pulse ox 93% on room air. Sodium has been 119 through the afternoon and this morning repeat is 118 She was on saline 3% last night. She received 1 dose of IV Lasix 20 mg this morning. Patient is currently not on any IV fluids. She is on 1.2 L fluid restriction and patient is being followed by nephrology.. Chloride is 84, BUN 20 creatinine 0.76. White count is 9.4 and hemoglobin 10.2. Cortisol level XXII. TSH 4.710 and free T4 1.45. Magnesium 1.5. Abdominal x- ray shows nonspecific gas pattern with air seen throughout large and small bowel loops. Bilateral lower lobe infiltrate and small effusion. Abdominal ult rasound showed small volume bright lower quadrant ascites. 05/20: Patient remains in the intensive care unit. She has been hemodynamically stable. Her sodium is up to 122. White count is 7.2, hemoglobin 10.1, creatinine 0.87. Chest x-ray reveals small to moderate pleural effusions with atelectasis. Patient received a total of 100 mg of IV Lasix yesterday managed by Dr. Cole. She has oral Lasix 20 mg daily ordered. Patient also received 1 sodium chloride tablet last night. Patient is seen sitting in recliner eating her lunch. She is scheduled for transfer to the [facility] without telemetry today. Review of Systems Constitutional: Reports anorexia, denies chills, Reports fatigue, Reports lethargy, Reports malaise, Reports weakness, Denies chronic headaches, Denies chronic pain, Denies daytime sleepiness, Denies fever, Denies night sweats, Denies poor appetite, Denies sweats, Denies weight gain, Denies weight loss Ears, nose, mouth and throat: Denies ant. neck pain, Denies bleeding gums, Denies dental pain, Denies dysphagia, Denies epistaxis, Denies headache, Denies hoarseness, Denies mouth pain, Denies nasal congestion, Denies nasal discharge, Denies neck fullness/pressure, Denies neck lump, Denies nose pain, Denies odynophagia, Denies post-nasal drip, Denies sinus pain, Denies sinus pressure, Cardiovascular: Denies chest pain, Denies claudication, Denies decreased exerc ise tolerance, Denies dyspnea on exertion, Denies edema, Denies high blood pressure, Denies irregular heart beat, Denies leg edema, Denies lightheadedness, Denies orthopnea, Denies palpitations, Denies paroxysmal nocturnal dyspnea, Denies phlebitis, Denies rapid heart beat, Denies shortness of breath, Denies syncope Respiratory: Denies congestion, Denies cough, Denies cough with sputum, Denies dyspnea, Denies excessive sputum, Denies hemoptysis, Denies home oxygen, Denies pain, Denies pain on inspiration, Denies pleurisy, Denies respiratory infections, Denies sleep apnea, Denies snoring, Denies wheezing Gastrointestinal: Denies abdominal pain, Denies belching, Denies bloating, Denies change in bowel habits, Denies coffee ground emesis, Denies constipation, Denies diarrhea, Denies dyspepsia, Denies early satiety, Denies excessive gas, Denies heartburn, Denies hematemesis, Denies hematochezia, Denies indigestion, Denies jaundice, Denies lactose intolerance, Denies loss of appetite, Denies melena, Denies nausea, Denies vomiting Musculoskeletal: Reports generalized weakness Neurological: Reports confusion, Reports memory loss, Reports motor disturbance, Reports weakness Endocrine: Reports cold intolerance, Denies excessive sweating, Denies excessive thirst, Denies fatigue, Denies flushing, Denies heat intolerance, Denies high blood sugars, Denies increase in ring/shoe/hat size, Denies low blood sugars, Denies nocturia, Denies palpitations, Denies polydipsia, Denies polyphagia, Denies polyuria, Denies proptosis, Denies recent glucocorticoid use, Denies thyroid mass, Denies weight change Objective - Vital Signs Vital signs: Vital Signs Temp 97.7 F 05/20/18 08:00 Pulse 78 05/20/18 09:00 Resp 17 05/20/18 09:00 BP 81/65 05/20/18 09:00 Pulse Ox 98 05/20/18 09:00 Intake & Output 05/19/18 05/20/18 05/20/18 18:59 06:59 18:59 Intake Total 750 150 Output Total 860 1600 335 Balance -110 -1600 -185 Weight 116.3 kg Intake: IV 250 150 Magnesium Sulfate-D5w Pmx 200 100 1 gm In Dextrose/Water 1 100ml.bag @ 100 mls/hr IVPB Q1H EPIFANIO Rx#: [id number] Sodium Chloride 3%( 0 Hypertonic) 500 ml @ 20 mls/hr IV .Q24H EPIFANIO Rx#: [id number] cefTRIAXone 1 gm In 50 50 Sodium Chloride 0.9% 50 ml @ 100 mls/hr IVPB Q24HR EPIFANIO Rx#:[id number] Oral 500 Output: Urine 860 1600 335 Other: Voiding Method Indwelling Catheter Indwelling Catheter Indwelling Catheter - Exam General appearance: cooperative, no distress, resting in recliner - EENT Eyes: anicteric sclerae, PERRLA, normal appearance ENT: NA/AT, normal oropharynx - Neck Neck: normal ROM - Respiratory Respiratory: bilateral: CTA, negative: diminished, dullness, rales, rhonchi, wheezing - Cardiovascular Rhythm: regular Heart sounds: normal: S1 Abnormal Heart Sounds: no systolic murmur, no diastolic murmur, no rub, no S3 Gallop, no S4 Gallop, no click, no other - Gastrointestinal General gastrointestinal: normal bowel sounds, soft - Integumentary Integumentary: decreased turgor, normal - Neurologic Neurologic: CNII-XII intact - Musculoskeletal Musculoskeletal: gait normal, strength equal bilaterally - Psychiatric Psychiatric: A&O x's 3, appropriate affect, intact judgment & insight - Labs CBC & Chem 7: 05/20/18 04:14 05/20/18 04:14 Labs: Abnormal Lab Results - Last 24 Hours (Table) 05/19/18 05/19/18 05/19/18 Range/Units 10:41 11:58 14:37 RBC (3.80-5.40) m/uL Hgb (11.4-16.0) gm/dL Hct (34.0-46.0) % RDW (11.5-15.5) % Sodium 118 L* 118 L* (137-145) mmol/L Chloride (98-107) mmol/L BUN (7-17) mg/dL Glucose (74-99) mg/dL POC Glucose (mg/dL) 217 H (75-99) mg/dL Calcium (8.4-10.2) mg/dL 05/19/18 05/19/18 05/19/18 Range/Units 17:02 18:18 20:36 RBC (3.80-5.40) m/uL Hgb (11.4-16.0) gm/dL Hct (34.0-46.0) % RDW (11.5-15.5) % Sodium 121 L (137-145) mmol/L Chloride (98-107) mmol/L BUN (7-17) mg/dL Glucose (74-99) mg/dL POC Glucose (mg/dL) 174 H 113 H (75-99) mg/dL Calcium (8.4-10.2) mg/dL 05/19/18 05/20/18 05/20/18 Range/Units 21:08 04:14 04:14 RBC 3.49 L (3.80-5.40) m/uL Hgb 10.1 L (11.4-16.0) gm/dL Hct 29.7 L (34.0-46.0) % RDW 15.9 H (11.5-15.5) % Sodium 121 L 122 L (137-145) mmol/L Chloride 86 L (98-107) mmol/L BUN 22 H (7-17) mg/dL Glucose 101 H (74-99) mg/dL POC Glucose (mg/dL) (75-99) mg/dL Calcium 8.2 L (8.4-10.2) mg/dL 05/20/18 Range/Units 07:00 RBC (3.80-5.40) m/uL Hgb (11.4-16.0) gm/dL Hct (34.0-46.0) % RDW (11.5-15.5) % Sodium (137-145) mmol/L Chloride (98-107) mmol/L BUN (7-17) mg/dL Glucose (74-99) mg/dL POC Glucose (mg/dL) 130 H (75-99) mg/dL Calcium (8.4-10.2) mg/dL Microbiology - Last 24 Hours (Table) 05/18/18 14:30 Urine Culture - Preliminary Urine,Catheterized Presumptive Staph aureus 05/18/18 14:25 Blood Culture - Preliminary Blood No Growth after 24 hours Assessment and Plan Plan: 1. Critical hyponatremia secondary secondary to poor oral intake. IV fluids discontinued. Patient is on fluid restriction. Nephrology is on consult. Renal ultrasound. Transferred to [facility] floor without telemetry. Consult with fishing boat captain in place. Continue to monitor closely. 2. Chronic atrial fibrillation. Continue Eliquis 2.5 g twice a day, amiodarone 200 mg twice a day, Metoprolol 12.5 mg twice daily. 3. Acute urinary tract infection, monitor for SIRS, Rocephin renal dosing cultures are pending has been sent 4. Anasarca with acute on chronic systolic and diastolic heart failure. Status post 1 dose of Lasix 20 mg IV this morning. 5. Abdominal distention acute. Abdominal x-rays as above. 6. Hyperkalemia most likely secondary to dehydration. Monitor 7. Mild transaminitis, monitor liver function tests, possibly secondary to amiodarone and CHF, might need hepatitis panel should numbers progress 8. Valvular heart disease: Patient had severe aortic stenosis and mild mitral regurgitation both are treated medically she had decline doing surgery in the past. 9. Severe pulmonary hypertension based on echocardiogram May 10. Diabetes diabetes type 2. Continue metformin 500 mg twice daily and NovoLog scale before meals and at bedtime. 11. Hypothyroidism: TSH elevated at 6.7 05/07/2018 Most likely brought by amiodarone at this point patient is not on any medication, levothyroxine was not started at that time of discharge plan was to monitor next lab draw to 4 weeks 12. Hyperlipidemia: Has been on atorvastatin 80 mg daily. 13. Incontinence: Has been on Detrol. 14. Reactive airway. Patient remain on albuterol/ipratropium. 15. GERD/GI prophylaxis: Remain on pantoprazole 40 mg daily. 16. Alzheimer's dementia. 17. 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 18. Hypomagnesemia, status post replacement. Continue magnesium oxide 400 mg daily. CODE STATUS: DO NOT RESUSCITATE. Discharge plan: Return to [facility] Impression and plan of care have been directed as dictated by the signing physician. Isamar Clinton nurse practitioner acting as scribe for signing physician.
--- NOTE | 2018-05-20 16:12 | PN ---
PROGRESS NOTE Patient is seen for followup for hyponatremia, which is mainly hypervolemic and currently improving with the IV Lasix. Her sodium was up to 122, and patient is being transferred out of the ICU. PHYSICAL EXAMINATION: On examination today, blood pressure was 89/57, heart rate 87 per minute. Patient is afebrile. Examination of the heart S1, S2. Examination lungs bilateral breath sounds are heard. Decreased breath sounds at bases. Abdomen is soft, nontender. Examination lower extremities shows chronic edema. FRONT END ALIGNMENT SPECIALIST exam is grossly intact. LABS: Show hemoglobin 10.1, sodium 122, potassium 4.6, BUN 22, serum creatinine 0.87. ASSESSMENT: 1. Hypervolemic, hyponatremia currently improving with IV diuretics. I will give another dose of IV Lasix and increase oral Lasix to 40 mg p.o. daily. 2. Altered mentation, metabolic encephalopathy, currently improved. 3. Urinary tract infection maintained on empiric antibiotics. 4. Severe aortic stenosis. 5. Severe pulmonary hypertension. 6. Type 2 diabetes. PLAN: Repeat IV Lasix and increase oral Lasix to 40 mg p.o. daily. Repeat labs in a.m. MMODL / IJN: [id number] /
[2018-05-20 17:37] LABS: Glucose,Whole Blood 214 mg/dL (75-99)
[2018-05-20] MEDS: MIDODRINE 5 MG TAB PO SCH (18:10)
[2018-05-20 20:15] LABS: Glucose,Whole Blood 162 mg/dL (75-99)
[2018-05-20] MEDS: ATORVASTATIN 80 MG TAB PO SCH (20:51)
[2018-05-20] MEDS ORDERED: VANCOMYCIN IV PER PHARMACY 1 EACH MISC MISCELLANE PRN (22:48)
[2018-05-20] MEDS ORDERED: VANCOMYCIN 1,250 MG in SODIUM CHLORIDE 0.9% 250 ML IVPB SCH (23:15)
[2018-05-21] MEDS: LEVOTHYROXINE 50 MCG TAB PO SCH (05:22)
[2018-05-21 07:05] LABS: Glucose,Whole Blood 103 mg/dL (75-99)
[2018-05-21] MEDS: INSULIN ASPART (NovoLOG) 100 UNIT/ML VIAL SQ SCH ×2 (07:14→11:43)
[2018-05-21] MEDS: PANTOPRAZOLE 40 MG TABLET PO SCH (07:38)
[2018-05-21] MEDS: ASPIRIN 81 MG PO SCH (07:38)
[2018-05-21] MEDS: MAGNESIUM OXIDE 400 MG TAB PO SCH (07:38)
[2018-05-21] MEDS: APIXABAN 2.5 MG TABLET PO SCH (07:39)
[2018-05-21] MEDS: DOCUSATE 100 MG CAP PO SCH (07:39)
[2018-05-21] MEDS: metFORMIN 500 MG TAB PO SCH (07:39)
[2018-05-21] MEDS: FERROUS SULFATE 325 MG TAB PO SCH (07:39)
[2018-05-21] MEDS: AMIODARONE 200 MG TAB PO SCH (07:39)
[2018-05-21] MEDS: CHOLECALCIFEROL 1,000 UNIT TAB PO SCH (07:39)
[2018-05-21] MEDS: METOPROLOL TARTRATE 12.5 MG TAB PO SCH (07:40)
[2018-05-21] MEDS: MIDODRINE 5 MG TAB PO SCH ×2 (07:40→11:43)
[2018-05-21 08:26] LABS: Anisocytosis Slight; Basophils % (A) 0 %; Eosinophils # (A) 0.2 k/uL (0-0.7); Eosinophils % (A) 2 %; HCT 32.8 % (34.0-46.0); HGB 10.9 gm/dL (11.4-16.0); Lymphocytes # (A) 1.3 k/uL (1.0-4.8); Lymphocytes % (A) 12 %; MCH 28.5 pg (25.0-35.0); MCHC 33.3 g/dL (31.0-37.0); MCV 85.6 fL (80.0-100.0); Mean Platelet Volume 6.2; Monocytes # (A) 0.6 k/uL (0-1.0); Monocytes % (A) 6 %; Neutrophils # (A) 8.3 k/uL (1.3-7.7); Neutrophils % (A) 79 %; Platelet Count 444 k/uL (150-450); RBC 3.84 m/uL (3.80-5.40); RDW 16.4 % (11.5-15.5); WBC 10.6 k/uL (3.8-10.6)
[2018-05-21 08:28] LABS: Calcium 8.6 mg/dL (8.4-10.2); Magnesium 1.9 mg/dL (1.6-2.3); Phosphorus 3.6 mg/dL (2.5-4.5); Potassium 4.8 mmol/L (3.5-5.1)
[2018-05-21] MEDS: IPRATROPIUM-ALBUTEROL 3 ML NEB INHALATION SCH ×2 (08:42→16:47)
[2018-05-21] MEDS ORDERED: FUROSEMIDE 40 MG TAB PO SCH (09:00)
--- NOTE | 2018-05-21 09:54 | XR ---
EXAMINATION TYPE: XR chest 1V portable DATE OF EXAM: 05/21/2018 COMPARISON: 05/20/2018 HISTORY: Shortness of breath TECHNIQUE: Single frontal view of the chest is obtained. FINDINGS: There is continued evidence of small pleural effusions although improved in degree from th e prior with left basilar probable atelectasis. Remainder the lungs are clear. Osseous structures dis play generalized demineralization. Mild degenerative changes of thoracic spine and moderate degenerat cody change of the right glenohumeral joint is noted. IMPRESSION: Improving pleural effusions with left basilar airspace disease, likely atelectasis.
--- NOTE | 2018-05-21 11:28 | PN ---
PROGRESS NOTE The patient is seen for followup for hypervolemic hyponatremia currently improving with diuresis. PHYSICAL EXAMINATION: On examination, patient is comfortable. Blood pressure is 116/71, heart rate is 70 per minute. She is afebrile. EXAMINATION OF THE HEART: S1, S2. EXAMINATION OF THE LUNGS: Bilateral breath sounds are heard. Abdomen is soft, nontender. Examination of the lower extremities shows edema 2+ bilaterally. GAMBLING BOX PERSON exam is grossly intact. LAB: Labs show sodium 129, potassium 4.8, hemoglobin 10.9 g/dL. ASSESSMENT: 1. Hypervolemic hyponatremia, improving with diuresis. Continue with current dose of Lasix. The patient is maintained on 40 mg p.o. daily. She did receive IV Lasix yesterday. 2. Urinary tract infection. Urine culture grew methicillin-resistant Staphylococcus aureus . The patient is maintained on vancomycin. 3. Congestive heart failure, acute on top of chronic. Echocardiogram is not available for ejection fraction, possibly diastolic. Currently being diuresed. 4. Severe pulmonary hypertension. 5. Chronic atrial fibrillation with controlled ventricular response. 6. Mild hyperkalemia on initial admission, currently improved. PLAN: Continue with Lasix. Repeat labs in a.m. MMODL / IJN: [id number] /
--- NOTE | 2018-05-21 11:33 | P.DS ---
Providers Date of admission: 05/18/18 12:23 Expected date of discharge: 05/21/18 Attending physician: Diana Rivera Consults: 05/18/18 12:23 Consult Physician Urgent Consulting Provider: Evelyn Cole Consult Reason/Comments: Hyponatremia Do you want consulting provider notified?: Yes 05/18/18 14:18 Consult Physician Routine Consulting Provider: Tariq Lan Consult Reason/Comments: ICU management Do you want consulting provider notified?: Yes 05/18/18 14:29 Consult Physician Routine Consulting Provider: Tariq Lan Consult Reason/Comments: icu management Do you want consulting provider notified?: Yes Primary care physician: Kitty Cardenas Hospital Course: 87-year-old female from [facility] on the [place] was sees Dr. Cardenas. She has underlying history of chronic atrial fibrillation, CAD, dementia, diabetes mellitus, CVA residual left hemiparesis, GI bleed in the past along with hypertension previous [place], moderate to severe aortic stenosis who brought to the hospital via EMS secondary to mental status changes, with increasing confusion, patient feels exhausted, for approximately one week, patient denies any lightheadedness or dizziness, no abdominal pain, appetite has been decreased, patient has no new head trauma or concussion, serum sodium performed May 09 shows a sodium of 132, on the ER and 3 her sodium is critical at 116 and significant pyuria with nitrite positivity, 182 with clumping WBCs /hpf. Patient was admitted for urinary tract infection, significant hyponatremia secondary to poor oral intake, patient is not on diuretics prior to admission as this was discontinued 3 days prior to admission, they have started her on fluid restrictions, as her sodium was 114, thereafter started getting more anasarca, periorbital edema, and continued to decline further patient also has abdominal distention without any abdominal pain, bowel movement was yesterday. She was last admitted May 07 - 05/10/2018 secondary to A. fib with RVR unstable angina with elevated troponin, acute hypoxemic Restoril failure secondary to A. fib with RVR, and systolic CHF exacerbation with fluid overload, known history of severe , and LV outlet obstruction severe pulmonary hypertension, chronic anticoagulation, she quietly titration up her amiodarone to 200 mg 3 times a day on discharge, along with Lasix 40 mg daily, and metoprolol 12.5 mg twice a day, In view of the above, her saline supplementation with 0.9 to correct her critical serum sodium will be changed to 3% normal saline, at 30 mL an hour patient will NOT be able to tolerate large volume fluid shift admitted to ICU 05/19: Patient is seen in the intensive care unit. She has been seen by team automobile assembler. Patient has been afebrile, heart rate running in 80s and 90s, blood pressure has been on the lower side through the night currently at 104/75. Pulse ox 93% on room air. Sodium has been 119 through the afternoon and this morning repeat is 118 She was on saline 3% last night. She received 1 dose of IV Lasix 20 mg this morning. Patient is currently not on any IV fluids. She is on 1.2 L fluid restriction and patient is being followed by nephrology.. Chloride is 84, BUN 20 creatinine 0.76. White count is 9.4 and hemoglobin 10.2. Cortisol level XXII. TSH 4.710 and free T4 1.45. Magnesium 1.5. Abdominal x- ray shows nonspecific gas pattern with air seen throughout large and small bowel loops. Bilateral lower lobe infiltrate and small effusion. Abdominal ultrasound showed small volume bright lower quadrant ascites. 05/20: Patient remains in the intensive care unit. She has been hemodynamically stable. Her sodium is up to 122. White count is 7.2, hemoglobin 10.1, creatinine 0.87. Chest x-ray reveals small to moderate pleural effusions with atelectasis. Patient received a total of 100 mg of IV Lasix yesterday managed by Dr. Cole. She has oral Lasix 20 mg daily ordered. Patient also received 1 sodium chloride tablet last night. Patient is seen sitting in recliner eating her lunch. She is scheduled [facility] floor without telemetry today. 05/21: Patient has been afebrile, heart rate running from 60s to 80s, blood pressure 116/71, pulse ox 94% on room air. Sodium this morning is 129, potassium 4.8, chloride 91, CO2 27, BUN 23 and creatinine 0.92. Blood sugars running between 89 and 162. Hemoglobin is 10.9 white count 10.6. Magnesium 1.9. Urine culture has been finalized with MRSA. The patient will be placed on doxycycline. Patient is noted to have decreased edema. Blood culture is no growth at [address] Cole is increased Lasix oral to 40 daily. Repeat chest x-ray shows improving pleural effusions with left basilar airspace disease likely atelectasis. Lasix clarified with Dr. Cole for 40 mg twice daily for 3 days and then changed every day. Basic metabolic panel to be done in 3-4 days. Patient to continue on fluid restriction 1200 MLS per day and follow-up with Dr. Cole in 1 week. Patient will be discharged to [facility] in stable condition. Discharge diagnoses: 1. Hypervolemic hyponatremia secondary secondary to poor oral intake. 2. Chronic atrial fibrillation. 3. Acute MRSA urinary tract infection, 4. Anasarca with acute on chronic systolic and diastolic heart failure. 5. Abdominal distention acute, resolved. 6. Hyperkalemia most likely secondary to dehydration. 7. Mild transaminitis 8. Valvular heart disease, severe aortic stenosis and mild mitral regurgitation 9. Severe pulmonary hypertension 10. Diabetes diabetes type 2. 11. Hypothyroidism 12. Hyperlipidemia 13. Incontinence 14. Reactive airway. 15. GERD 16. Alzheimer's dementia. 17. 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 Hypomagnesemia, status post replacement. Discharge plan: Return to [facility] Impression and plan of care have been directed as dictated by the signing physician. Isamar Clinton nurse practitioner acting as scribe for signing physic diego. Patient Condition at Discharge: Good Plan - Discharge Summary Discharge Rx Participant: No New Discharge Prescriptions: New Doxycycline Hyclate 100 mg PO BID #20 tab Furosemide [Lasix] 40 mg PO DAILY tab Midodrine [ProAmatine] 10 mg PO AC-TID tab Continue Multivitamins, Thera [Multivitamin (formulary)] 1 tab PO DAILY Docusate [Colace] 100 mg PO Q48H Cholecalciferol [Vitamin D3] 1,000 unit PO DAILY Apixaban [Eliquis] 2.5 mg PO BID #60 tab Atorvastatin [Lipitor] 80 mg PO HS Ferrous Sulfate [Iron (65 MG Elemental)] 325 mg PO AC-BID@0900,1700 Ipratropium-Albuterol Nebulize [Duoneb 0.5 mg-3 mg/3 ml Soln] 3 ml INHALATION RT-Q2H PRN ampul.neb PRN Reason: Shortness Of Breath Or Wheezing Ipratropium-Albuterol Nebulize [Duoneb 0.5 mg-3 mg/3 ml Soln] 3 ml INHALATION RT-TID metFORMIN HCL [Metformin HCl] 500 mg PO BID@0800,1700 Melatonin 5 mg PO HS PRN PRN Reason: Insomnia Mylanta 30 ml PO Q4H PRN PRN Reason: Gi Upset Lactobacillus Acidophilus [Acidophilus] 1 tab PO Q48H Glucerna Shake 1 can PO HS House Sooth & Cool Powder 1 applic TOPICAL Q12H Pantoprazole [Protonix] 40 mg PO DAILY Amiodarone [Cordarone] 200 mg PO TID tab Aspirin 81 mg PO DAILY chew Metoprolol Tartrate [Lopressor] 12.5 mg PO BID tab Discharge Medication List Cholecalciferol [Vitamin D3] 1,000 unit PO DAILY 07/20/16 [History] Docusate [Colace] 100 mg PO Q48H 07/20/16 [History] Multivitamins, Thera [Multivitamin (formulary)] 1 tab PO DAILY 07/20/16 [History] Apixaban [Eliquis] 2.5 mg PO BID #60 tab 08/18/16 [Rx] Atorvastatin [Lipitor] 80 mg PO HS 11/19/16 [History] Ferrous Sulfate [Iron (65 MG Elemental)] 325 mg PO AC-BID@0900,1700 12/19/17 [History] Ipratropium-Albuterol Nebulize [Duoneb 0.5 mg-3 mg/3 ml Soln] 3 ml INHALATION RT-Q2H PRN ampul.neb 01/04/18 [Rx] Glucerna Shake 1 can PO HS 05/02/18 [History] Ipratropium-Albuterol Nebulize [Duoneb 0.5 mg-3 mg/3 ml Soln] 3 ml INHALATION RT-TID 05/02/18 [History] Lactobacillus Acidophilus [Acidophilus] 1 tab PO Q48H 05/02/18 [History] Melatonin 5 mg PO HS PRN 05/02/18 [History] Mylanta 30 ml PO Q4H PRN 05/02/18 [History] metFORMIN HCL [Metformin HCl] 500 mg PO BID@0800,1700 05/02/18 [History] House Sooth & Cool Powder 1 applic TOPICAL Q12H 05/07/18 [History] Pantoprazole [Protonix] 40 mg PO DAILY 05/07/18 [History] Amiodarone [Cordarone] 200 mg PO TID tab 05/10/18 [Rx] Aspirin 81 mg PO DAILY chew 05/10/18 [Rx] Metoprolol Tartrate [Lopressor] 12.5 mg PO BID tab 05/10/18 [Rx] Doxycycline Hyclate 100 mg PO BID #20 tab 05/21/18 [Rx] Furosemide [Lasix] 40 mg PO DAILY tab 05/21/18 [Rx] Midodrine [ProAmatine] 10 mg PO AC-TID tab 05/21/18 [Rx] Follow up Appointment(s)/Referral(s): Kitty Cardenas MD [Primary Care Provider] - 1-2 days (at [facility]) Evelyn Cole MD [STAFF PHYSICIAN] - 1 Week Ambulatory/Diagnostic Orders: Basic Metabolic Panel [LAB.AMB] Location: None Selected Activity/Diet/Wound Care/Special Instructions: DNR at [facility] Room air MRSA + in urine 05/18/18 Regular diet, 1200ml fluid restriction, ensure TIDWM Activity as tolerated Discharge Disposition: TRANSFER TO SNF/ECF
[2018-05-21 11:38] LABS: Glucose,Whole Blood 181 mg/dL (75-99)
[2018-05-21 13:38] VITALS: BP 102/53; PULSE 70; RESP 18; TEMP 98
[2018-05-22] MEDS ORDERED: VANCOMYCIN 1,250 MG in SODIUM CHLORIDE 0.9% 250 ML IVPB SCH ×2
== END 2018-05-21 16:51 | DRG 291 ==
LOC: EC 10:22 → 3SCARD 12:23 → 2SICU 14:36 → 3NMEDONC 05-20 13:29
PROVIDERS: ADMIT Family Medicine; ATTEND Family Medicine
DX: I11.0 Hypertensive heart disease with heart failure (principal); G93.41 Metabolic encephalopathy; R18.8 Other ascites; I69.354 Hemiplegia and hemiparesis following cerebral infarction affecting left non-dominant side; I48.1 Persistent atrial fibrillation; E87.1 Hypo-osmolality and hyponatremia; N39.0 Urinary tract infection, site not specified; E86.0 Dehydration; E87.5 Hyperkalemia; J44.9 Chronic obstructive pulmonary disease, unspecified; E11.42 Type 2 diabetes mellitus with diabetic polyneuropathy; I27.20 Pulmonary hypertension, unspecified; E11.319 Type 2 diabetes mellitus with unspecified diabetic retinopathy without macular edema; E83.42 Hypomagnesemia; G30.9 Alzheimer's disease, unspecified; I25.110 Atherosclerotic heart disease of native coronary artery with unstable angina pectoris; I48.2 Chronic atrial fibrillation; B95.62 Methicillin resistant Staphylococcus aureus infection as the cause of diseases classified elsewhere; F02.80 Dementia in other diseases classified elsewhere, unspecified severity, without behavioral disturbance, psychotic disturbance, mood disturbance, and anxiety; Z66 Do not resuscitate; I50.43 Acute on chronic combined systolic (congestive) and diastolic (congestive) heart failure; M19.90 Unspecified osteoarthritis, unspecified site; E78.5 Hyperlipidemia, unspecified; K21.9 Gastro-esophageal reflux disease without esophagitis; I08.0 Rheumatic disorders of both mitral and aortic valves; I25.2 Old myocardial infarction; M54.9 Dorsalgia, unspecified; G89.29 Other chronic pain; K22.4 Dyskinesia of esophagus; R32 Unspecified urinary incontinence; E03.9 Hypothyroidism, unspecified; H91.90 Unspecified hearing loss, unspecified ear; D50.9 Iron deficiency anemia, unspecified; R74.0 Nonspecific elevation of levels of transaminase and lactic acid dehydrogenase [LDH]; Z71.3 Dietary counseling and surveillance; Z79.82 Long term (current) use of aspirin; Z79.01 Long term (current) use of anticoagulants; Z79.899 Other long term (current) drug therapy; Z79.84 Long term (current) use of oral hypoglycemic drugs; Z91.81 History of falling; Z90.710 Acquired absence of both cervix and uterus; Z98.42 Cataract extraction status, left eye; Z98.41 Cataract extraction status, right eye; Z98.61 Coronary angioplasty status; Z96.1 Presence of intraocular lens; Z88.7 Allergy status to serum and vaccine; Z88.2 Allergy status to sulfonamides; Z91.040 Latex allergy status; Z83.3 Family history of diabetes mellitus; Z82.3 Family history of stroke
CPT/HCPCS: 36415; 71045; 71046; 74019; 76705; 80048; 80053; 81001; 82533; 83605; 83735; 83880; 83930; 83935; 84100; 84295; 84300; 84439; 84443; 84484; 85025; 85610; 85730; 87040; 87077; 87086; 87186; 94640; 96361; 96365; 99291

== ENCOUNTER 2018-08-23 00:31 | Emergency (ER) | payer MEDICARE, BC, OTHER ==
[2018-08-23 00:38] VITALS: RESP 18
[2018-08-23] MEDS ORDERED: methylPREDNISolone SOD SUCCI 125 MG/2 ML VIAL IV STA (01:15)
--- NOTE | 2018-08-23 01:41 | ED ---
Fall HPI - General Chief Complaint: Fall Stated Complaint: Fall Time Seen by Provider: 08/23/18 01:06 Source: patient, EMS Mode of arrival: EMS - History of Present Illness Initial Comments: 88-year-old female presenting today for chief complaint of fall. Patient states that one of the wheels of her walker get stuck and sometimes causes her to trip. She states this occurred today causing her to fall backwards hitting the left side of the back or head. Patient denies loss of conscious. She denies headache dizziness nausea vomiting visual changes diplopia. Patient states she feels fine she would've like to go back to sleep as she is a resident at [facility]. Because patient is an SHE was sent to the emergency department by EMS for evaluation of head injury. Patient denies any pain of the neck back upper extremities or lower extremity. Patient states she feels fine without any complaints. Daughter is at bedside who states the patient has had a cough congestion for the past week. She states at times patient agrees and would like that evaluated while she is in the emergency department as well. Patient has a chest pain short of breath patient does admit to congestion and cough. Remaining review of systems negative upon arrival patient appears well. No signs of acute distress or obvious trauma. Patient has known history of aniscoria and previous CVA. - Related Data Home Medications Medication Instructions Recorded Confirmed Cholecalciferol [Vitamin D3 (25 1,000 unit PO DAILY 07/20/16 05/18/18 Mcg = 1000 Iu)] Docusate [Colace] 100 mg PO Q48H 07/20/16 05/18/18 Multivitamins, Thera [Multivitamin 1 tab PO DAILY 07/20/16 05/18/18 (formulary)] Atorvastatin [Lipitor] 80 mg PO HS 11/19/16 05/18/18 Ferrous Sulfate [Iron (65 MG 325 mg PO AC-BID@0900,1700 12/19/17 05/18/18 Elemental)] Glucerna Shake 1 can PO HS 05/02/18 05/18/18 Ipratropium-Albuterol Nebulize 3 ml INHALATION RT-TID 05/02/18 05/18/18 [Duoneb 0.5 mg-3 mg/3 ml Soln] Lactobacillus Acidophilus 1 tab PO Q48H 05/02/18 05/18/18 [Acidophilus] Melatonin 5 mg PO HS PRN 05/02/18 05/18/18 Mylanta 30 ml PO Q4H PRN 05/02/18 05/18/18 metFORMIN HCL [Metformin HCl] 500 mg PO BID@0800,1700 05/02/18 05/18/18 House Sooth & Cool Powder 1 applic TOPICAL Q12H 05/07/18 05/18/18 Pantoprazole [Protonix] 40 mg PO DAILY 05/07/18 05/18/18 Previous Rx's Medication Instructions Recorded Apixaban [Eliquis] 2.5 mg PO BID #60 tab 08/18/16 Ipratropium-Albuterol Nebulize 3 ml INHALATION RT-Q2H PRN 01/04/18 [Duoneb 0.5 mg-3 mg/3 ml Soln] ampul.neb Amiodarone [Cordarone] 200 mg PO TID tab 05/10/18 Aspirin 81 mg PO DAILY chew 05/10/18 Metoprolol Tartrate [Lopressor] 12.5 mg PO BID tab 05/10/18 Doxycycline Hyclate 100 mg PO BID #20 tab 05/21/18 Furosemide [Lasix] 40 mg PO DAILY tab 05/21/18 Midodrine [ProAmatine] 10 mg PO AC-TID tab 05/21/18 Azithromycin [Zithromax Z-pack] 0 mg PO DIRECTED #6 tab 08/23/18 Allergies Allergy/AdvReac Type Severity Reaction Status Date / Time Influenza Virus Vaccines Allergy Unknown Verified 05/18/18 10:37 latex Allergy Rash/Hives Verified 05/18/18 10:37 Sulfa (Sulfonamide AdvReac Nausea & Verified 05/18/18 10:37 Antibiotics) Vomiting Review of Systems ROS Statement: Those systems with pertinent positive or pertinent negative responses have been documented in the HPI. ROS Other: All systems not noted in ROS Statement are negative. Past Medical History Past Medical History: Atrial Fibrillation, Coronary Artery Disease (CAD), Heart Failure, CVA/TIA, Dementia, Diabetes Mellitus, GERD/Reflux, GI Bleed, Hearing Disorder / Deafness, Hyperlipidemia, Hypertension, Myocardial Infarction ([place]), Osteoarthritis (OA) Additional Past Medical History / Comment(s): Pt recently admitted to [facility] on 05/07/18 with Afib RVR, hypoxic respiratory failure 2ndary to Afib RVR, acute heart failure. Other hx: Aortic/mitral stenosis, LV outlet obstruction, chronic atrial fibrillation, history of CVA with some residual left-sided weakness, dementia, NIDDM type II, neuropathy bilateral feet, bilataeral retinopathy, small bowel obstruction with surgery then post op ileus as well as respiratory frailure, chronic iron deficiency anemia with past infusions, vitam in D deficiency, chronic back pain, R leg pain, history of recurrent falls, impaired hearing, difficulty with mobility and gait and the patient [facility] until recently-has been in wheelchair, incontinence. Last Myocardial Infarction Date:: 2006? History of Any Multi-Drug Resistant Organisms: MRSA Date of last positivie culture/infection: 05/18/18 MDRO Source:: urine MRSA Past Surgical History: Hysterectomy Additional Past Surgical History / Comment(s): PTCA, 12/2017 exploratory lap with lysis of adhesions, L eye injections, bilateral cataracts removed with lens implants, EGD/colonoscopy, epidural pain injections. Past Anesthesia/Blood Transfusion Reactions: No Reported Reaction Past Psychological History: No Psychological Hx Reported Smoking Status: Never smoker Past Alcohol Use History: None Reported Past Drug Use History: None Reported - Past Family History Mother Additional Family Medical History / Comment(s): Brain An. Father Family Medical History: CVA/TIA Additional Family Medical History / Comment(s): Father in his 70s from multiple CVAs. Sister(s) Family Medical History: Diabetes Mellitus Additional Family Medical History / Comment(s): Cardiac issues Brother(s) Family Medical History: Diabetes Mellitus Additional Family Medical History / Comment(s): cardiac issues General Exam - General Exam Comments Initial Comments: General: The patient is awake and alert, in no distress, and does not appear acutely ill. Eye: +1 mm right pupil, +3 mm left pupil round and reactive to light, extra- ocular movements are intact. No nystagmus. There is normal conjunctiva bilaterally. No signs of icterus. No photophobia Ears, nose, mouth and throat: There are moist mucous membranes and no oral lesions. Oropharynx was not erythematous there is no tonsillar enlargement exudates or lesions. Uvula midline. Tympanic membranes are not erythematous or is no effusions bulging or retraction. No tenderness to palpation of the mastoi d. No anterior cervical lymphadenopathy. Rhinorrhea, clear and bilateral nares. No tripoding, no drooling. Neck: The neck is supple, there is no tenderness or JVD. No nuchal rigidity negative Brudzinski and Kernig Cardiovascular: There is a regular rate and rhythm. No murmur, rub or gallop is appreciated. Respiratory: Lungs are clear to auscultation, respirations are non-labored, breath sounds are equal. No wheezes, stridor, rales, or rhonchi. No retractions or abdominal breathing. Gastrointestinal: Soft, non-distended, non-tender abdomen without masses or organomegaly noted. There is no rebound or guarding present. Bowel sounds are unremarkable. Musculoskeletal: Normal ROM, no tenderness. Strength 5/5. Sensation intact. Radial pulses equal bilaterally 2+. Neurological: A&O x 3. CN II-XII intact, There are no obvious motor or sensory deficits. Coordination appears grossly intact. Speech appears normal, no muffling. Skin: Skin is warm and dry and no rashes or lesions are noted. No extremity ed abdullahi Psychiatric: Cooperative Limitations: no limitations Course Vital Signs 08/23/18 08/23/18 08/23/18 00:32 02:29 02:33 Temperature 98.5 F Pulse Rate 85 88 85 Respiratory 18 Rate Blood Pressure 120/75 O2 Sat by Pulse 96 Oximetry Medical Decision Making - Medical Decision Making 88-year-old male presenting for mechanical fall. No focal neurological deficits. Patient has known history of Aniscoria per family and patient. CT of the brain and C-spine were negative for acute intracranial process/cervical process.Hx of cough x [address] showed nodules of the upper lung tobias and small right pleural effusion. Chest x-ray shows bibasilar atelectasis. Pt afebrile. Mild expiratory wheeze. Pt given 1 duoneb. Patient given 1 dose of ceftriaxone for concern of possibly developing pneumonia. Patient was dischar ged with azithromycin. Patient requesting discharge. At this time I feel given no focal neurological deficits. Improvement of extremity wheeze and stable laboratory findings consistent with previous values the patient can return to [facility]. Family member states patient has follow-up tomorrow with Dr. Cardenas primary care provider. Return for management discussed the patient's family who verbalized understanding. Patient was discharged appearing well. - Lab Data Result diagrams: 08/23/18 01:45 08/23/18 01:45 Lab Results 08/23/18 08/23/18 Range/Units 01:45 01:45 WBC 9.2 (3.8-10.6) k/uL RBC 3.49 L (3.80-5.40) m/uL Hgb 9.3 L (11.4-16.0) gm/dL Hct 28.0 L (34.0-46.0) % MCV 80.3 (80.0-100.0) fL MCH 26.5 (25.0-35.0) pg MCHC 33.0 (31.0-37.0) g/dL RDW 17.2 H (11.5-15.5) % Plt Count 351 (150-450) k/uL Neutrophils % 74 % Lymphocytes % 13 % Monocytes % 5 % Eosinophils % 6 % Basophils % 0 % Neutrophils # 6.8 (1.3-7.7) k/uL Lymphocytes # 1.2 (1.0-4.8) k/uL Monocytes # 0.5 (0-1.0) k/uL Eosinophils # 0.5 (0-0.7) k/uL Basophils # 0.0 (0-0.2) k/uL Anisocytosis Slight Microcytosis Slight Sodium 129 L (137-145) mmol/L Potassium 4.7 (3.5-5.1) mmol/L Chloride 90 L (98-107) mmol/L Carbon Dioxide 26 (22-30) mmol/L Anion Gap 13 mmol/L BUN 38 H (7-17) mg/dL Creatinine 0.97 (0.52-1.04) mg/dL Est GFR (CKD-EPI)AfAm 61 (>60 ml/min/1.73 sqM) Est GFR (CKD-EPI)NonAf 53 (>60 ml/min/1.73 sqM) Glucose 118 H (74-99) mg/dL Calcium 9.0 (8.4-10.2) mg/dL Total Bilirubin 1.2 (0.2-1.3) mg/dL AST 87 H (14-36) U/L ALT 139 H (9-52) U/L Alkaline Phosphatase 84 (38-126) U/L Total Protein 7.0 (6.3-8.2) g/dL Albumin 4.1 (3.5-5.0) g/dL Disposition Clinical Impression: Fall, Cough, Head injury Disposition: HOME SELF-CARE Condition: Good Instructions (If sedation given, give patient instructions): Fall Prevention for Older Adults (ED), Cold Symptoms (ED) Additional Instructions: Please use medication as discussed. Please follow-up with family doctor in the next 2 days. Please return to emergency room if the symptoms increase or worsen or for any other concerns. Prescriptions: Azithromycin [Zithromax Z-pack] 0 mg PO DIRECTED #6 tab Is patient prescribed a controlled substance at d/c from ED?: No Referrals: None,Stated [REFERRING] - 1-2 days Time of Disposition: 02:57
[2018-08-23 02:01] LABS: Anisocytosis Slight; Basophils % (A) 0 %; Eosinophils # (A) 0.5 k/uL (0-0.7); Eosinophils % (A) 6 %; HGB 9.3 gm/dL (11.4-16.0); Lymphocytes # (A) 1.2 k/uL (1.0-4.8); Lymphocytes % (A) 13 %; MCH 26.5 pg (25.0-35.0); MCV 80.3 fL (80.0-100.0); Mean Platelet Volume 6.7; Microcytosis Slight; Monocytes # (A) 0.5 k/uL (0-1.0); Monocytes % (A) 5 %; Neutrophils # (A) 6.8 k/uL (1.3-7.7); Neutrophils % (A) 74 %; Platelet Count 351 k/uL (150-450); RBC 3.49 m/uL (3.80-5.40); RDW 17.2 % (11.5-15.5); WBC 9.2 k/uL (3.8-10.6)
--- NOTE | 2018-08-23 02:09 | XR ---
EXAM: XR Chest, 2 Views CLINICAL HISTORY: Pain TECHNIQUE: Frontal and lateral views of the chest. COMPARISON: 05/21/2018 FINDINGS: Lungs: Small amount of airspace opacities over bilateral lower lung zones. Pleural space: Unremarkable. No pneumothorax. Heart: Unremarkable. No cardiomegaly. Mediastinum: Calcified aorta. Bones/joints: Osteopenia. Moderate degenerative changes. IMPRESSION: Small amount of bibasilar atelectasis and less likely pneumonia
[2018-08-23 02:10] LABS: Albumin 4.1 g/dL (3.5-5.0); Potassium 4.7 mmol/L (3.5-5.1); Total Bilirubin 1.2 mg/dL (0.2-1.3)
[2018-08-23] MEDS ORDERED: IPRATROPIUM-ALBUTEROL 3 ML NEB INHALATION STA (02:13)
--- NOTE | 2018-08-23 02:24 | CT ---
EXAM: CT Head Without Intravenous Contrast CLINICAL HISTORY: fall on Eliquis TECHNIQUE: Axial computed tomography images of the head/brain without intravenous contrast. CTDI is 45.2 mGy and DLP is 993.7 mGy-cm. This CT exam was performed using one or more of the following dose reduction techniques: automated exposure control, adjustment of the mA and/or kV according to patient size, and/or use of iterative reconstruction technique. Coronal and sagittal reformatted images were created and reviewed. COMPARISON: 05-02-2018 FINDINGS: Brain: Moderate age-related generalized brain volume loss and chronic small vessel ischemic changes. No hemorrhage. Ventricles: Unremarkable. No ventriculomegaly. Bones/joints: Unremarkable. No acute fracture. Soft tissues: Unremarkable. Sinuses: Unremarkable as visualized. No acute sinusitis. Mastoid air cells: Unremarkable as visualized. No mastoid effusion. IMPRESSION: No acute findings. EXAM: CT Cervical Spine Without Intravenous Contrast CLINICAL HISTORY: fall on Eliquis TECHNIQUE: Axial computed tomography images of the cervical spine without intravenous contrast. CTDI is 12.5 mGy and DLP is 350.5 mGy-cm. This CT exam was performed using one or more of the following dose reduction techniques: automated exposure control, adjustment of the mA and/or kV according to patient size, and/or use of iterative reconstruction technique. Coronal and sagittal reformatted images were created and reviewed. COMPARISON: 05-02-2018 FINDINGS: Vertebrae: Unremarkable. No acute fracture. Discs/spinal canal/neural foramina: Moderate degenerative disc disease, worse in the lower cervical spine. Osteopenia. Soft tissues: Unremarkable. Vasculature: Moderate amount of atherosclerotic calcifications. Lung apices: Several adjacent subcentimeter subpleural nodule opacities measuring up to 3 mm, in anterior right lung apex, best seen on series 301 images 92-96 are unchanged. Small patchy airspace opacities in the lateral aspect of right lung apex is unchanged, likely represent atelectasis or scarring Pleural space: Small right pleural effusion. IMPRESSION: 1. Small right pleural effusion. 2. Several adjacent subcentimeter subpleural nodule opacities measuring up to 3 mm, in anterior right lung apex, are unchanged. 3. No fracture or subluxation. Moderate degenerative disc disease
[2018-08-23] MEDS ORDERED: cefTRIAXone IN SWFI 1,000 MG/10 ML SYRINGE IVP STA (02:53)
[2018-08-23 03:27] VITALS: BP 118/72; PULSE 86; TEMP 98
== END 2018-08-23 03:27 | disposition home or self-care (01) ==
LOC: EC 00:31
DX: S09.90XA Unspecified injury of head, initial encounter (principal); R05 Cough; J90 Pleural effusion, not elsewhere classified; R91.1 Solitary pulmonary nodule; I25.119 Atherosclerotic heart disease of native coronary artery with unspecified angina pectoris; E11.40 Type 2 diabetes mellitus with diabetic neuropathy, unspecified; I11.0 Hypertensive heart disease with heart failure; I50.9 Heart failure, unspecified; E78.5 Hyperlipidemia, unspecified; I25.2 Old myocardial infarction; K21.9 Gastro-esophageal reflux disease without esophagitis; Z79.84 Long term (current) use of oral hypoglycemic drugs; Z79.51 Long term (current) use of inhaled steroids; Z79.899 Other long term (current) drug therapy; Z91.040 Latex allergy status; Z88.2 Allergy status to sulfonamides; Z88.7 Allergy status to serum and vaccine; Z86.73 Personal history of transient ischemic attack (TIA), and cerebral infarction without residual deficits; Z98.61 Coronary angioplasty status
CPT/HCPCS: 36415; 94640; 80053; 85025; 71046; 72125; 70450; 99284; 96374; 96375; J2930; J0696

== ENCOUNTER 2018-10-05 15:00 | Inpatient (IN) | payer MEDICARE, BC, OTHER ==
[2018-10-05] MEDS ORDERED: ATROPINE SULFATE 0.1 MG/ML 10ML SYRINGE IV STA (15:26)
[2018-10-05] MEDS ORDERED: SODIUM CHLORIDE 0.9% 500 ML 500 ML IV STA (15:30)
--- NOTE | 2018-10-05 15:38 | ED ---
General Adult HPI - General Stated complaint: low heart rate Time Seen by Provider: 10/05/18 15:11 Source: patient Mode of arrival: wheelchair Limitations: no limitations - History of Present Illness Initial comments: Dictation was produced using [employer] dictation software. please excuse any grammatical, word or spelling errors. Chief Complaint: Patient is 88-year-old female with multiple comorbidities presents today for bradycardia. History of Present Illness: A 88-year-old female presents bradycardia. Patient has past medical history of atrial fibrillation. She is currently taking amiodarone. Patient was at her doctor's office receiving an iron transfusion when her heart rate was measured to be dirty. Patient denies any symptoms at th is time. Patient does not know why she is here in emergency department. She has no complaints. No chest pain or shortness of breath. The ROS documented in this emergency department record has been reviewed and confirmed by me. Those systems with pertinent positive or negative responses have been documented in the HPI. All other systems are other negative and/or noncontributory. PHYSICAL EXAM: General Impression: Alert and oriented x3, not in acute distress HEENT: Normocephalic atraumatic, extra-ocular movements intact, pupils equal and reactive to light bilaterally, mucous membranes moist. Cardiovascular: Bradycardic, S1&S2 audible, no murmurs, rubs or gallops Chest: Lungs clear to auscultation bilaterally, no rhonchi, no wheeze, no rales Abdomen: Bowel sounds present, abdomen soft, non-tender, non-distended, no organomegaly Musculoskeletal: Pulses present and equal in all extremities, no peripheral edema Motor: no focal deficits noted Neurological: CN II-XII grossly intact, no focal motor or sensory deficits noted Skin: Intact with no visualized rashes Psych: Normal affect and mood ED course: 80-year-old female presents with bradycardia. She is currently asymptomatic. Patient's heart rate here in emergency department is 45. Laboratory evaluation obtained and found to be unremarkable. Patient does not have electrolyte derangement. Patient's well-appearing at bedside. Her heart rate is consistently in the low 40s. She is given aspirin and agreeable with no resolve. Patient still continues to be asymptomatic. Given patient's clinical presentation we will keep patient the hospital for observation. Cardiology be consulted. Patient to be on manager editorial. EKG interpretation: Ventricular rate 45, sinus bradycardia with first-degree AV block, NJ interval 264, care is 80, QTc 448. No NJ prolongation, no QTC prolongation, no ST or T-wave changes noted. No dropped beats noted on 12-lead. - Related Data Home Medications Medication Instructions Recorded Confirmed Cholecalciferol [Vitamin D3 (25 1,000 unit PO DAILY@0900 07/20/16 10/05/18 Mcg = 1000 Iu)] Docusate [Colace] 100 mg PO Q48H 07/20/16 10/05/18 Multivitamins, Thera [Multivitamin 1 tab PO DAILY@0900 07/20/16 10/05/18 (formulary)] Atorvastatin [Lipitor] 80 mg PO HS@209911/19/16 10/05/18 Ferrous Sulfate [Iron (65 MG 325 mg PO AC-BID@0900,169912/19/17 10/05/18 Elemental)] Ipratropium-Albuterol Nebulize 3 ml INHALATION RT-TID 05/02/18 10/05/18 [Duoneb 0.5 mg-3 mg/3 ml Soln] Melatonin 5 mg PO HS PRN 05/02/18 10/05/18 Mylanta 30 ml PO Q4H PRN 05/02/18 10/05/18 metFORMIN HCL [Metformin HCl] 500 mg PO BID@0900,169905/02/18 10/05/18 Pantoprazole [Protonix] 40 mg PO DAILY@0600 05/07/18 10/05/18 Acetaminophen [Tylenol Arthritis] 650 mg PO Q4H PRN 10/05/18 10/05/18 Amiodarone [Cordarone] 200 mg PO Q12HR@0900,209910/05/18 10/05/18 Apixaban [Eliquis] 2.5 mg PO BID@0900,1700 10/05/18 10/05/18 Cetirizine HCl [Zyrtec] 10 mg PO HS@209910/05/18 10/05/18 Furosemide [Lasix] 40 mg PO DAILY@0600 10/05/18 10/05/18 Glucerna Shake 1 can PO BID 10/05/18 10/05/18 Lactobacillus Acidophilus 1 tab PO Q12HR@0900,209910/05/18 10/05/18 [Acidophilus] Latanoprost Ophth [Xalatan 0.005%] 1 drop BOTH EYES HS@209910/05/18 10/05/18 Magnesium Hydroxide [Milk of 2,400 mg PO DAILY PRN 10/05/18 10/05/18 Magnesia] Magnesium Oxide 400 mg PO BID@0900,209910/05/18 10/05/18 Metoprolol Tartrate [Lopressor] 12.5 mg PO BID@0900,209910/05/18 10/05/18 guaiFENesin SYRUP 100MG/5ML 200 mg PO Q4H PRN 10/05/18 10/05/18 [Robitussin] Previous Rx's Medication Instructions Recorded Ipratropium-Albuterol Nebulize 3 ml INHALATION RT-Q2H PRN 01/04/18 [Duoneb 0.5 mg-3 mg/3 ml Soln] ampul.neb Aspirin 81 mg PO DAILY chew 05/10/18 Midodrine [ProAmatine] 10 mg PO AC-TID tab 05/21/18 Allergies Allergy/AdvReac Type Severity Reaction Status Date / Time Influenza Virus Vaccines Allergy Unknown Verified 10/05/18 15:42 latex Allergy Rash/Hives Verified 10/05/18 15:42 Sulfa (Sulfonamide AdvReac Nausea & Verified 10/05/18 15:42 Antibiotics) Vomiting Review of Systems ROS Statement: Those systems with pertinent positive or pertinent negative responses have been documented in the HPI. ROS Other: All systems not noted in ROS Statement are negative. Past Medical History Past Medical History: Atrial Fibrillation, Coronary Artery Disease (CAD), Heart Failure, CVA/TIA, Dementia, Diabetes Mellitus, GERD/Reflux, GI Bleed, Hearing Disorder / Deafness, Hyperlipidemia, Hypertension, Myocardial Infarction ([place]), Osteoarthritis (OA), Respiratory Disorder Additional Past Medical History / Comment(s): Aortic/mitral stenosis, LV outlet obstruction,CVA with some residual left-sided weakness, dementia, NIDDM type II, neuropathy bilateral feet, bilataeral retinopathy,chronic iron deficiency anemia with past infusions, vitamin D deficiency, chronic back pain, history of recurrent falls, impaired hearing, difficulty with mobility and gait and the patient uses a walker at the assisted until recently-has been in wheelchair, incontinence. Last Myocardial Infarction Date:: 2006? History of Any Multi-Drug Resistant Organisms: MRSA Date of last positivie culture/infection: 05/18/18 MDRO Source:: urine MRSA Past Surgical History: Bowel Resection, Hysterectomy Additional Past Surgical History / Comment(s): PTCA, 12/2017 exploratory lap with lysis of adhesions, L eye injections, bilateral cataracts removed with lens implants, EGD/colonoscopy, epidural pain injections. BOWEL SURGERY WITH ILEUS. Past Anesthesia/Blood Transfusion Reactions: No Reported Reaction Past Psychological History: No Psychological Hx Reported Smoking Status: Never smoker - Past Family History Mother Additional Family Medical History / Comment(s): Brain An. Father Family Medical History: CVA/TIA Additional Family Medical History / Comment(s): Father in his 70s from multiple CVAs. Sister(s) Family Medical History: Diabetes Mellitus Additional Family Medical History / Comment(s): Cardiac issues Brother(s) Family Medical History: Diabetes Mellitus Additional Family Medical History / Comment(s): cardiac issues General Exam Limitations: no limitations Course Vital Signs 10/05/18 10/05/18 10/05/18 15:10 15:30 15:34 Temperature 97.6 F Pulse Rate 44 L 44 L Respiratory 22 18 Rate Blood Pressure 123/63 123/63 O2 Sat by Pulse 98 96 96 Oximetry 10/05/18 10/05/18 10/05/18 16:00 16:30 16:32 Temperature Pulse Rate 44 L 44 L 49 L Respiratory 26 H 25 H 16 Rate Blood Pressure 123/63 119/58 129/58 O2 Sat by Pulse 94 L 96 Oximetry Medical Decision Making - Lab Data Result diagrams: 10/05/18 15:44 10/05/18 15:44 Lab Results 10/05/18 10/05/18 10/05/18 Range/Units 15:44 15:44 15:44 WBC 7.7 (3.8-10.6) k/uL RBC 3.94 (3.80-5.40) m/uL Hgb 10.6 L (11.4-16.0) gm/dL Hct 32.8 L (34.0-46.0) % MCV 83.1 (80.0-100.0) fL MCH 26.9 (25.0-35.0) pg MCHC 32.3 (31.0-37.0) g/dL RDW 17.4 H (11.5-15.5) % Plt Count 319 (150-450) k/uL Neutrophils % 71 % Lymphocytes % 13 % Monocytes % 8 % Eosinophils % 5 % Basophils % 1 % Neutrophils # 5.5 (1.3-7.7) k/uL Lymphocytes # 1.0 (1.0-4.8) k/uL Monocytes # 0.6 (0-1.0) k/uL Eosinophils # 0.4 (0-0.7) k/uL Basophils # 0.1 (0-0.2) k/uL Anisocytosis Slight PT 10.7 (9.0-12.0) sec INR 1.0 (<1.2) APTT 27.3 (22.0-30.0) sec Sodium 136 L (137-145) mmol/L Potassium 4.9 (3.5-5.1) mmol/L Chloride 98 (98-107) mmol/L Carbon Dioxide 26 (22-30) mmol/L Anion Gap 12 mmol/L BUN 38 H (7-17) mg/dL Creatinine 1.23 H (0.52-1.04) mg/dL Est GFR (CKD-EPI)AfAm 45 (>60 ml/min/1.73 sqM) Est GFR (CKD-EPI)NonAf 39 (>60 ml/min/1.73 sqM) Glucose 143 H (74-99) mg/dL Calcium 9.2 (8.4-10.2) mg/dL Magnesium 2.2 (1.6-2.3) mg/dL Total Bilirubin 0.9 (0.2-1.3) mg/dL AST 62 H (14-36) U/L ALT 80 H (9-52) U/L Alkaline Phosphatase 85 (38-126) U/L Troponin I (0.000-0.034) ng/mL Total Protein 7.5 (6.3-8.2) g/dL Albumin 4.2 (3.5-5.0) g/dL 10/05/18 Range/Units 15:44 WBC (3.8-10.6) k/uL RBC (3.80-5.40) m/uL Hgb (11.4-16.0) gm/dL Hct (34.0-46.0) % MCV (80.0-100.0) fL MCH (25.0-35.0) pg MCHC (31.0-37.0) g/dL RDW (11.5-15.5) % Plt Count (150-450) k/uL Neutrophils % % Lymphocytes % % Monocytes % % Eosinophils % % Basophils % % Neutrophils # (1.3-7.7) k/uL Lymphocytes # (1.0-4.8) k/uL Monocytes # (0-1.0) k/uL Eosinophils # (0-0.7) k/uL Basophils # (0-0.2) k/uL Anisocytosis PT (9.0-12.0) sec INR (<1.2) APTT (22.0-30.0) sec Sodium (137-145) mmol/L Potassium (3.5-5.1) mmol/L Chloride (98-107) mmol/L Carbon Dioxide (22-30) mmol/L Anion Gap mmol/L BUN (7-17) mg/dL Creatinine (0.52-1.04) mg/dL Est GFR (CKD-EPI)AfAm (>60 ml/min/1.73 sqM) Est GFR (CKD-EPI)NonAf (>60 ml/min/1.73 sqM) Glucose (74-99) mg/dL Calcium (8.4-10.2) mg/dL Magnesium (1.6-2.3) mg/dL Total Bilirubin (0.2-1.3) mg/dL AST (14-36) U/L ALT (9-52) U/L Alkaline Phosphatase (38-126) U/L Troponin I <0.012 (0.000-0.034) ng/mL Total Protein (6.3-8.2) g/dL Albumin (3.5-5.0) g/dL Disposition Clinical Impression: Bradycardia Disposition: ADMITTED IP TO THIS HOSP Condition: Fair Referrals: Kitty Cardenas MD [Primary Care Provider] - 1-2 days Decision Time: 16:53
[2018-10-05 15:57] LABS: Anisocytosis Slight; Basophils # (A) 0.1 k/uL (0-0.2); Basophils % (A) 1 %; Eosinophils # (A) 0.4 k/uL (0-0.7); Eosinophils % (A) 5 %; HCT 32.8 % (34.0-46.0); HGB 10.6 gm/dL (11.4-16.0); Lymphocytes % (A) 13 %; MCH 26.9 pg (25.0-35.0); MCHC 32.3 g/dL (31.0-37.0); MCV 83.1 fL (80.0-100.0); Monocytes # (A) 0.6 k/uL (0-1.0); Monocytes % (A) 8 %; Neutrophils # (A) 5.5 k/uL (1.3-7.7); Neutrophils % (A) 71 %; Platelet Count 319 k/uL (150-450); RBC 3.94 m/uL (3.80-5.40); RDW 17.4 % (11.5-15.5); WBC 7.7 k/uL (3.8-10.6)
[2018-10-05] MEDS ORDERED: GLUCAGON 1 MG/ML VIAL IVP STA (15:59)
[2018-10-05 16:08] LABS: Partial Thromboplastin Time 27.3 sec (22.0-30.0); Prothrombin Time 10.7 sec (9.0-12.0)
[2018-10-05 16:15] LABS: Albumin 4.2 g/dL (3.5-5.0); Calcium 9.2 mg/dL (8.4-10.2); Magnesium 2.2 mg/dL (1.6-2.3); Potassium 4.9 mmol/L (3.5-5.1); Total Bilirubin 0.9 mg/dL (0.2-1.3); Total Protein 7.5 g/dL (6.3-8.2)
--- NOTE | 2018-10-05 16:52 | XR ---
EXAMINATION TYPE: XR chest 1V portable DATE OF EXAM: 10/05/2018 COMPARISON: 08/23/2018 HISTORY: Chest pain TECHNIQUE: Single frontal view of the chest is obtained. FINDINGS: Bilateral consolidation and interstitial pattern. No pneumothorax. Heart prominent. Hypert rophic and degenerative changes. Atherosclerotic change aorta. Arthropathy of the hips. IMPRESSION: Interstitial changes with bilateral consolidation small effusion correlate for CHF
[2018-10-05] MEDS ORDERED: NALOXONE 0.4 MG/ML 1 ML VIAL IV PRN (16:53)
[2018-10-05] MEDS ORDERED: IPRATROPIUM-ALBUTEROL 3 ML NEB INHALATION PRN (16:54)
[2018-10-05] MEDS ORDERED: ACETAMINOPHEN TAB 325 MG TAB PO PRN (16:54)
[2018-10-05] MEDS ORDERED: MAGNESIUM HYDROXIDE 2,400 MG/10 ML CUP PO PRN (16:54)
[2018-10-05 17:59] VITALS: BMI 26.2
[2018-10-05] MEDS: MAGNESIUM OXIDE 400 MG TAB PO SCH (20:32)
[2018-10-05] MEDS: APIXABAN 2.5 MG TABLET PO SCH (20:33)
[2018-10-05] MEDS: ATORVASTATIN 80 MG TAB PO SCH (20:33)
[2018-10-05 21:00] LABS: Glucose,Whole Blood 133 mg/dL (75-99)
[2018-10-05] MEDS: LATANOPROST 0.005% OPHTH DROPS 2.5 ML BTL BOTH EYES SCH (21:52)
[2018-10-05] MEDS: SODIUM CHLORIDE 0.9% 1,000 ML IV SCH (22:45)
[2018-10-06 06:18] LABS: Glucose,Whole Blood 122 mg/dL (75-99)
[2018-10-06] MEDS: PANTOPRAZOLE 40 MG TABLET PO SCH (06:38)
[2018-10-06] MEDS: ASPIRIN 81 MG PO SCH (09:15)
[2018-10-06] MEDS: MAGNESIUM OXIDE 400 MG TAB PO SCH ×2 (09:15→21:06)
[2018-10-06] MEDS: APIXABAN 2.5 MG TABLET PO SCH ×2 (09:15→17:11)
--- NOTE | 2018-10-06 09:39 | P.CRDCN ---
History of Present Illness Consult date: 10/06/18 Requesting physician: Diana Rivera Reason for Consult (text): bradycardia Chief complaint: bradycardia History of present illness: This is a pleasant 88-year-old female who follows regularly with Dr. Interiano in the office. She has history of hypertension, diabetes, hyperlipidemia, paroxysmal atrial fibrillation, prior intracranial bleed, at which time her anticoagulation was discontinued, subsequent to that she incurred a TIA and since then has been put on Eliquis. She has also known valvular heart disease with severe aortic stenosis, patient had been advised to undergo surgery but declined. Patient comes to the hospital on this occasion because of bradycardia, according to the daughter she had been at a follow-up appointment with her physician because her hemoglobin had been running low, it was noted while she was there that her heart rate was in the 30s and she was advised to come to the hospital for further evaluation. Patient denies any dizziness or lightheadedness, no palpitations. A couple of weeks ago she did experience a fall however she just tripped and fell because her leg was weak, there is no symptoms of dizziness no evidence of any syncope. Overall according to the daughter the patient has been doing quite well. The daughter did mention however that she has been on amiodarone for some time, and this dose had to be decreased to 100 mg twice a day because of bradycardia in the past. She is currently on 200 mg by mouth twice a day. Her blood pressure is 126/60, heart rate 48 this morning, 95% on room air. White blood cell count 7.7, hemoglobin 10.6, platelet count 319. Sodium 136, potassium 4.9, BUN 38 and creatinine 1.2. AST 62, ALT 80, troponin 0.012. On arrival here, patient was on a prolonged 12-1/2 mg by mouth twice a day at home as well as amiodarone 200 mg by mouth twice a day. I did get Dr. Scott's note from the office, patient according to his note was to be on 200 mg daily of amiodarone. Currently her amiodarone and beta joaquin are on hold. At the time of my examination this morning she sitting up in the chair, feels well, no complaints. Past Medical History Past Medical History: Atrial Fibrillation, Coronary Artery Disease (CAD), Heart Failure, CVA/TIA, Dementia, Diabetes Mellitus, GERD/Reflux, GI Bleed, Hearing Disorder / Deafness, Hyperlipidemia, Hypertension, Myocardial Infarction ([place]), Neurologic Disorder, Osteoarthritis (OA), Respiratory Disorder Additional Past Medical History / Comment(s): Aortic/mitral stenosis, LV outlet obstruction,CVA with some residual left-sided weakness, dementia, NIDDM type II, neuropathy bilateral feet, bilataeral retinopathy,chronic iron deficiency anemia with past infusions, vitamin D deficiency, chronic back pain, history of recurrent falls, impaired hearing, difficulty with mobility and gait and the patient uses a walker at [facility] until recently-has been in wheelchair, incontinence. Last Myocardial Infarction Date:: 2006? History of Any Multi-Drug Resistant Organisms: MRSA Date of last positivie culture/infection: 05/18/18 MDRO Source:: urine MRSA Past Surgical History: Bowel Resection, Hysterectomy Additional Past Surgical History / Comment(s): PTCA, 12/2017 exploratory lap with lysis of adhesions, L eye injections, bilateral cataracts removed with lens implants, EGD/colonoscopy, epidural pain injections. BOWEL SURGERY WITH ILEUS. Past Anesthesia/Blood Transfusion Reactions: No Reported Reaction Smoking Status: Never smoker - Past Family History Mother Additional Family Medical History / Comment(s): Brain An. Father Family Medical History: CVA/TIA Additional Family Medical History / Comment(s): Father in his 70s from multiple CVAs. Sister(s) Family Medical History: Diabetes Mellitus Additional Family Medical History / Comment(s): Cardiac issues Brother(s) Family Medical History: Diabetes Mellitus Additional Family Medical History / Comment(s): cardiac issues Medications and Allergies Home Medications Medication Instructions Recorded Confirmed Type Cholecalciferol [Vitamin D3 (25 1,000 unit PO DAILY@0900 07/20/16 10/05/18 History Mcg = 1000 Iu)] Docusate [Colace] 100 mg PO Q48H 07/20/16 10/05/18 History Multivitamins, Thera [Multivitamin 1 tab PO DAILY@0900 07/20/16 10/05/18 History (formulary)] Atorvastatin [Lipitor] 80 mg PO HS@2100 11/19/16 10/05/18 History Ferrous Sulfate [Iron (65 MG 325 mg PO AC-BID@0900,1700 12/19/17 10/05/18 History Elemental)] Ipratropium-Albuterol Nebulize 3 ml INHALATION RT-Q2H PRN 01/04/18 10/05/18 Rx [Duoneb 0.5 mg-3 mg/3 ml Soln] ampul.neb Ipratropium-Albuterol Nebulize 3 ml INHALATION RT-TID 05/02/18 10/05/18 History [Duoneb 0.5 mg-3 mg/3 ml Soln] Melatonin 5 mg PO HS PRN 05/02/18 10/05/18 History Mylanta 30 ml PO Q4H PRN 05/02/18 10/05/18 History metFORMIN HCL [Metformin HCl] 500 mg PO BID@0900,1700 05/02/18 10/05/18 History Pantoprazole [Protonix] 40 mg PO DAILY@0600 05/07/18 10/05/18 History Aspirin 81 mg PO DAILY chew 05/10/18 10/05/18 Rx Midodrine [ProAmatine] 10 mg PO AC-TID tab 05/21/18 10/05/18 Rx Acetaminophen [Tylenol Arthritis] 650 mg PO Q4H PRN 10/05/18 10/05/18 History Amiodarone [Cordarone] 200 mg PO Q12HR@0900,209910/05/18 10/05/18 History Apixaban [Eliquis] 2.5 mg PO BID@0900,1700 10/05/18 10/05/18 History Cetirizine HCl [Zyrtec] 10 mg PO HS@209910/05/18 10/05/18 History Furosemide [Lasix] 40 mg PO DAILY@0600 10/05/18 10/05/18 History Glucerna Shake 1 can PO BID 10/05/18 10/05/18 History Lactobacillus Acidophilus 1 tab PO Q12HR@0900,209910/05/18 10/05/18 History [Acidophilus] Latanoprost Ophth [Xalatan 0.005%] 1 drop BOTH EYES HS@209910/05/18 10/05/18 History Magnesium Hydroxide [Milk of 2,400 mg PO DAILY PRN 10/05/18 10/05/18 History Magnesia] Magnesium Oxide 400 mg PO BID@0900,209910/05/18 10/05/18 History Metoprolol Tartrate [Lopressor] 12.5 mg PO BID@0900,2100 10/05/18 10/05/18 History guaiFENesin SYRUP 100MG/5ML 200 mg PO Q4H PRN 10/05/18 10/05/18 History [Robitussin] Allergies Allergy/AdvReac Type Severity Reaction Status Date / Time Influenza Virus Vaccines Allergy Unknown Verified 10/05/18 15:42 latex Allergy Rash/Hives Verified 10/05/18 15:42 Sulfa (Sulfonamide AdvReac Nausea & Verified 10/05/18 15:42 Antibiotics) Vomiting Physical Exam Vitals: Vital Signs Temp Pulse Pulse Resp BP BP Pulse Ox 10/06/18 03:50 98.0 F 52 L 15 126/59 95 10/06/18 00:25 49 L 16 128/57 95 10/05/18 20:00 98.2 F 46 L 15 133/95 93 L 10/05/18 19:04 97.6 F 44 L 18 151/64 99 10/05/18 19:02 44 L 18 151/64 99 10/05/18 16:32 49 L 16 129/58 96 10/05/18 16:30 44 L 25 H 119/58 94 L 10/05/18 16:00 44 L 26 H 123/63 10/05/18 15:34 97.6 F 44 L 18 123/63 96 10/05/18 15:30 44 L 22 123/63 96 10/05/18 15:28 44 L 10/05/18 15:10 98 Intake and Output 10/05/18 10/06/18 10/06/18 22:59 06:59 14:59 Intake Total 500 Balance 500 Intake: Amount of Fluid Infused ( 500 ml) Other: Voiding Method Toilet Toilet # Voids 4 Weight 73.936 kg 78.2 kg PHYSICAL EXAMINATION: GENERAL: 88-year-old female in no acute distress at the time of my examination HEENT: Head is atraumatic, normocephalic. Pupils equal, round. Sclera anicteric. Conjunctiva are clear. Mucous membranes of the mouth are moist. Neck is supple. There is no elevated jugular venous pressure. No carotid bruit is heard. HEART EXAMINATION: Heart S1 S2 1 systolic ejection murmur is heard CHEST EXAMINATION: Lungs are clear to auscultation and precussion. No chest wall tenderness is noted on palpation or with deep breathing. ABDOMEN: Soft, nontender. Bowel sounds are heard. No organomegaly noted. EXTREMITIES: 2+ peripheral pulses with no evidence of peripheral edema and no calf tenderness noted. NEUROLOGIC patient is awake, alert and oriented 2 . . Results 10/05/18 15:44 10/05/18 15:44 Cardiac Enzymes 10/05/18 10/05/18 Range/Units 15:44 15:44 AST 62 H (14-36) U/L Troponin I <0.012 (0.000-0.034) ng/mL Coagulation 10/05/18 Range/Units 15:44 PT 10.7 (9.0-12.0) sec APTT 27.3 (22.0-30.0) sec CBC 10/05/18 Range/Units 15:44 WBC 7.7 (3.8-10.6) k/uL RBC 3.94 (3.80-5.40) m/uL Hgb 10.6 L (11.4-16.0) gm/dL Hct 32.8 L (34.0-46.0) % Plt Count 319 (150-450) k/uL Comprehensive Metabolic Panel 10/05/18 Range/Units 15:44 Sodium 136 L (137-145) mmol/L Potassium 4.9 (3.5-5.1) mmol/L Chloride 98 (98-107) mmol/L Carbon Dioxide 26 (22-30) mmol/L BUN 38 H (7-17) mg/dL Creatinine 1.23 H (0.52-1.04) mg/dL Glucose 143 H (74-99) mg/dL Calcium 9.2 (8.4-10.2) mg/dL AST 62 H (14-36) U/L ALT 80 H (9-52) U/L Alkaline Phosphatase 85 (38-126) U/L Total Protein 7.5 (6.3-8.2) g/dL Albumin 4.2 (3.5-5.0) g/dL Current Medications Generic Name Dose Route Start Last Admin Trade Name Freq PRN Reason Stop Dose Admin Acetaminophen 650 mg 10/05/18 16:54 Tylenol Tab PO Q4H PRN Pain Albuterol/Ipratropium 3 ml 10/05/18 16:54 Duoneb 0.5 Mg-3 Mg/3 Ml Soln INHALATION RT-Q2H PRN Shortness Of Breath Or Wheezing Apixaban 2.5 mg 10/05/18 17:00 10/06/18 09:15 Eliquis PO 2.5 mg BID@0900,1700 EPIFANIO Administration Aspirin 81 mg 10/06/18 09:00 10/06/18 09:15 Aspirin PO 81 mg DAILY EPIFANIO Administration Atorvastatin Calcium 80 mg 10/05/18 21:00 10/05/18 20:33 Lipitor PO 80 mg HS@2100 EPIFANIO Administration Sodium Chloride 1,000 mls @ 20 mls/hr 10/05/18 17:00 10/05/18 22:45 Saline 0.9% IV Not Given .Q24H EPIFANIO Latanoprost 1 drops 10/05/18 21:00 10/05/18 21:52 Xalatan 0.005% BOTH EYES 1 drops HS@2100 EPIFANIO Administration Magnesium Hydroxide 2,400 mg 10/05/18 16:54 Milk Of Magnesia PO DAILY PRN Constipation Magnesium Oxide 400 mg 10/05/18 21:00 10/06/18 09:15 Mag-Ox PO 400 mg BID@0900,2100 EPIFANIO Administration Naloxone HCl 0.2 mg 10/05/18 16:53 Narcan IV Q2M PRN Opioid Reversal Pantoprazole Sodium 40 mg 10/06/18 06:00 10/06/18 06:38 Protonix PO 40 mg DAILY@0600 EPIFANIO Administration Intake and Output 10/05/18 10/06/18 10/06/18 22:59 06:59 14:59 Intake Total 500 Balance 500 Intake: Amount of Fluid Infused ( 500 ml) Other: Voiding Method Toilet Toilet # Voids 4 Weight 73.936 kg 78.2 kg 10/05/18 15:44 10/05/18 15:44 EKG Interpretations (text) EKG shows a sinus bradycardia Assessment and Plan Plan: Assessment and plan #1 sinus bradycardia with a heart rate of 45 on arrival here #2 paroxysmal atrial fibrillation #3 severe aortic stenosis #4 hypertension #5 diabetes #6 hyperlipidemia #7 mild dementia #8 mildly elevated AST and ALT Plan At this point in time, we will continue to hold the patient's amiodarone, resume beta joaquin 12-1/2 mg by mouth twice a day. Check a TSH level. Further recommendations to follow DNP note has been reviewed, I agree with a documented findings and plan of care. Patient was seen and examined.
[2018-10-06] MEDS ORDERED: guaiFENesin SYRUP 100MG/5ML 200 MG/10 ML CUP PO PRN (10:28)
[2018-10-06] MEDS ORDERED: MELATONIN 5 MG TABLET PO PRN (10:28)
[2018-10-06] MEDS ORDERED: MAG HYDROX/AL HYDROX/SIMETH 30 ML CUP PO PRN (10:28)
[2018-10-06] MEDS: METOPROLOL TARTRATE 12.5 MG TAB PO SCH ×2 (10:40→21:06)
[2018-10-06 12:13] LABS: Glucose,Whole Blood 178 mg/dL (75-99)
[2018-10-06] MEDS: INSULIN ASPART (NovoLOG) 100 UNIT/ML VIAL SQ SCH ×3 (12:37→21:00)
[2018-10-06] MEDS: MIDODRINE 5 MG TAB PO SCH ×2 (12:37→17:11)
--- NOTE | 2018-10-06 14:35 | P.HPIM ---
History of Present Illness H&P Date: 10/06/18 Chief Complaint: Bradycardia This is an 88-year-old female patient of Dr. Cardenas and Dr. 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 he patient developed a low heart rate in the 30s and was instructed to come in the hospital. Yesterday, patient was transferred to the [facility] for a Ferumoxytol infusion but once patient arrived, she was found to have a heart rate in the 30s. [facility] was contacted and the night that she had ever had a low heart rate like this in the past. Dr. Cardenas was contacted and patient was transferred then to the ER. Patient is pleasantly confused and not reliable source of history. Patient presented to [facility] emergency center for evaluation. Her heart rate was in the 40s, afebrile, blood pressure 123/63, p ulse ox 96% on room air. Chest x-ray showed interstitial changes with bilateral consolidation small effusions correlate for heart failure. Lab work revealed hemoglobin 10.6, BUN 38 creatinine 1.23, blood sugar 143. Patient was provided 1 dose of atropine 0.5 mg, glucagon 1 mg IV push and post 500 ML's IV fluids while in the emergency center and has been admitted to the cardiac stepdown unit with cardiology consult. Review of Systems Constitutional: Denies anorexia, Denies chills, Denies fatigue, Denies fever, Denies poor appetite, Denies weakness Ears, nose, mouth and throat: Denies dental pain, Denies nasal congestion, Drew es nasal discharge, Denies vertigo Cardiovascular: Denies decreased exercise tolerance, Denies dyspnea on exertion, Denies edema, Denies leg edema, Denies lightheadedness Respiratory: Denies cough, Denies cough with sputum, Denies excessive sputum, D enies hemoptysis, Denies home oxygen, Denies wheezing Gastrointestinal: Denies abdominal pain, Denies loss of appetite, Denies nausea, Denies vomiting Genitourinary: Denies dysuria Musculoskeletal: Reports gait dysfunction, Denies frequent falls, Denies myalgias Integumentary: Denies pruritus, Denies rash, Denies wounds Neurological: Denies aphasia, Denies change in mentation, Denies change in speech, Denies numbness, Denies seizures, Denies weakness Psychiatric: Denies anxiety, Denies depression Endocrine: Denies fatigue, Denies weight change Past Medical History Past Medical History: Atrial Fibrillation, Coronary Artery Disease (CAD), Heart Failure, CVA/TIA, Dementia, Diabetes Mellitus, GERD/Reflux, GI Bleed, Hearing Disorder / Deafness, Hyperlipidemia, Hypertension, Myocardial Infarction ([place]), Neurologic Disorder, Osteoarthritis (OA), Respiratory Disorder Additional Past Medical History / Comment(s): Aortic/mitral stenosis, LV outlet obstruction,CVA with some residual left-sided weakness, dementia, NIDDM type II, neuropathy bilateral feet, bilataeral retinopathy,chronic iron deficiency anemia with past infusions, vitamin D deficiency, chronic back pain, history of recurrent falls, impaired hearing, difficulty with mobility and gait and the patient uses a walker at [facility] until recently-has been in wheelchair, incontinence. Last Myocardial Infarction Date:: 2006? History of Any Multi-Drug Resistant Organisms: MRSA Date of last positivie culture/infection: 05/18/18 MDRO Source:: urine MRSA Past Surgical History: Bowel Resection, Hysterectomy Additional Past Surgical History / Comment(s): PTCA, 12/2017 exploratory lap with lysis of adhesions, L eye injections, bilateral cataracts removed with lens implants, EGD/colonoscopy, epidural pain injections. BOWEL SURGERY WITH ILEUS. Past Anesthesia/Blood Transfusion Reactions: No Reported Reaction Smoking Status: Never smoker Additional Past Alcohol Use History / Comment(s): No illicit drug use, no alcohol abuse. Patient resides at [facility] under the care of Dr. Cardenas. - Past Family History Mother Additional Family Medical History / Comment(s): Brain An. Father Family Medical History: CVA/TIA Additional Family Medical History / Comment(s): Father in his 70s from multiple CVAs. Sister(s) Family Medical History: Diabetes Mellitus Additional Family Medical History / Comment(s): Cardiac issues Brother(s) Family Medical History: Diabetes Mellitus Additional Family Medical History / Comment(s): cardiac issues Medications and Allergies Home Medications Medication Instructions Recorded Confirmed Type Cholecalciferol [Vitamin D3 (25 1,000 unit PO DAILY@0900 07/20/16 10/05/18 History Mcg = 1000 Iu)] Docusate [Colace] 100 mg PO Q48H 07/20/16 10/05/18 History Multivitamins, Thera [Multivitamin 1 tab PO DAILY@0900 07/20/16 10/05/18 History (formulary)] Atorvastatin [Lipitor] 80 mg PO HS@209911/19/16 10/05/18 History Ferrous Sulfate [Iron (65 MG 325 mg PO AC-BID@0900,1700 12/19/17 10/05/18 History Elemental)] Ipratropium-Albuterol Nebulize 3 ml INHALATION RT-Q2H PRN 01/04/18 10/05/18 Rx [Duoneb 0.5 mg-3 mg/3 ml Soln] ampul.neb Ipratropium-Albuterol Nebulize 3 ml INHALATION RT-TID 05/02/18 10/05/18 History [Duoneb 0.5 mg-3 mg/3 ml Soln] Melatonin 5 mg PO HS PRN 05/02/18 10/05/18 History Mylanta 30 ml PO Q4H PRN 05/02/18 10/05/18 History metFORMIN HCL [Metformin HCl] 500 mg PO BID@0900,1700 05/02/18 10/05/18 History Pantoprazole [Protonix] 40 mg PO DAILY@0600 05/07/18 10/05/18 History Aspirin 81 mg PO DAILY chew 05/10/18 10/05/18 Rx Midodrine [ProAmatine] 10 mg PO AC-TID tab 05/21/18 10/05/18 Rx Acetaminophen [Tylenol Arthritis] 650 mg PO Q4H PRN 10/05/18 10/05/18 History Amiodarone [Cordarone] 200 mg PO Q12HR@0900,209910/05/18 10/05/18 History Apixaban [Eliquis] 2.5 mg PO BID@0900,1700 10/05/18 10/05/18 History Cetirizine HCl [Zyrtec] 10 mg PO HS@209910/05/18 10/05/18 History Furosemide [Lasix] 40 mg PO DAILY@0600 10/05/18 10/05/18 History Glucerna Shake 1 can PO BID 10/05/18 10/05/18 History Lactobacillus Acidophilus 1 tab PO Q12HR@09,209910/05/18 10/05/18 History [Acidophilus] Latanoprost Ophth [Xalatan 0.005%] 1 drop BOTH EYES HS@209910/05/18 10/05/18 History Magnesium Hydroxide [Milk of 2,400 mg PO DAILY PRN 10/05/18 10/05/18 History Magnesia] Magnesium Oxide 400 mg PO BID@0900,209910/05/18 10/05/18 History Metoprolol Tartrate [Lopressor] 12.5 mg PO BID@0900,209910/05/18 10/05/18 History guaiFENesin SYRUP 100MG/5ML 200 mg PO Q4H PRN 10/05/18 10/05/18 History [Robitussin] Allergies Allergy/AdvReac Type Severity Reaction Status Date / Time Influenza Virus Vaccines Allergy Unknown Verified 10/05/18 15:42 latex Allergy Rash/Hives Verified 10/05/18 15:42 Sulfa (Sulfonamide AdvReac Nausea & Verified 10/05/18 15:42 Antibiotics) Vomiting Physical Exam Vitals: Vital Signs Temp Pulse Pulse Resp BP BP Pulse Ox 10/06/18 08:00 97.7 F 58 L 20 121/65 99 10/06/18 03:50 98.0 F 52 L 15 126/59 95 10/06/18 00:25 49 L 16 128/57 95 10/05/18 20:00 98.2 F 46 L 15 133/95 93 L 10/05/18 19:04 97.6 F 44 L 18 151/64 99 10/05/18 19:02 44 L 18 151/64 99 10/05/18 16:32 49 L 16 129/58 96 10/05/18 16:30 44 L 25 H 119/58 94 L 10/05/18 16:00 44 L 26 H 123/63 10/05/18 15:34 97.6 F 44 L 18 123/63 96 10/05/18 15:30 44 L 22 123/63 96 10/05/18 15:28 44 L 10/05/18 15:10 98 Intake and Output 10/05/18 10/06/18 10/06/18 22:59 06:59 14:59 Intake Total 500 240 Balance 500 240 Intake: Amount of Fluid Infused ( 500 ml) Oral 240 Other: Voiding Method Toilet Toilet # Voids 4 Weight 73.936 kg 78.2 kg Gen: This is an 88-year-old female. She is resting in bed and appears to be comfortable and in no acute distress. HEENT: Head is atraumatic, normocephalic. Pupils equal, round. Sclerae is anicteric. NECK: Supple. No JVD. No lymphadenopathy. No thyromegaly. LUNGS: Clear to auscultation. No wheezes or rhonchi. No intercostal retractions. HEART: Irregular rate and rhythm. 3/6 systolic murmur. ABDOMEN: Soft. Bowel sounds are present. No masses. No tenderness. EXTREMITIES: No pedal edema. No calf tenderness. NEUROLOGICAL: Patient is awake, alert and oriented x1-2. Cranial nerves 2 through 12 are grossly intact. Results CBC & Chem 7: 10/05/18 15:44 10/05/18 15:44 Labs: Abnormal Lab Results - Last 24 Hours (Table) 10/05/18 10/05/18 10/05/18 Range/Units 15:44 15:44 20:58 Hgb 10.6 L (11.4-16.0) gm/dL Hct 32.8 L (34.0-46.0) % RDW 17.4 H (11.5-15.5) % Sodium 136 L (137-145) mmol/L BUN 38 H (7-17) mg/dL Creatinine 1.23 H (0.52-1.04) mg/dL Glucose 143 H (74-99) mg/dL POC Glucose (mg/dL) 133 H (75-99) mg/dL AST 62 H (14-36) U/L ALT 80 H (9-52) U/L 10/06/18 Range/Units 06:16 Hgb (11.4-16.0) gm/dL Hct (34.0-46.0) % RDW (11.5-15.5) % Sodium (137-145) mmol/L BUN (7-17) mg/dL Creatinine (0.52-1.04) mg/dL Glucose (74-99) mg/dL POC Glucose (mg/dL) 122 H (75-99) mg/dL AST (14-36) U/L ALT (9-52) U/L Thrombosis Risk Factor Assmnt - DVT/VTE Prophylaxis DVT/VTE Prophylaxis: Pharmacologic Prophylaxis ordered - Choose All That Apply Any of the Below Risk Factors Present?: Yes Each Factor Represents 1 point: Obesity (BMI >25) Each Risk Factor Represents 3 Points: Age 75 years or older Thrombosis Risk Factor Assessment Total Risk Factor Score: 4 Thrombosis Risk Factor Assessment Level: Moderate Risk Assessment and Plan Plan: 1. Sinus bradycardia. Patient admitted to the cardiac stepdown unit. Amiodarone on hold. Cardiology consult appreciated. Patient has been resumed o n Lopressor 12.5 mg twice daily. TSH pending. 2. Paroxysmal atrial fibrillation. Continue eliquis and Lopressor 12.5 mg twice daily 3. Hypertension. Continue Lopressor. 4. Hyperlipidemia. Continue Lipitor 80 mg at bedtime. 5. Hypothyroidism. TSH ordered. 6. Chronic systolic and diastolic heart failure. Lasix on hold. 7. Valvular heart disease with severe aortic stenosis and mild mitral regurgitation. 8. Severe pulmonary hypertension. 9. Diabetes mellitus type 2 with diabetic neuropathy and diabetic retinopathy. Continue metformin 500 mg twice daily, NovoLog scale before meals and at bedtime. 10. Gastroesophageal reflux disease. Protonix. 11. Alzheimer's dementia. Patient appears to be at baseline. 12. Esophageal motility disorder from presbyesophagus. 13. Anemia of chronic disease. Hemoglobin stable. Continue ferrous sulfate. 14. Chronic kidney disease stage III under the care of Dr. Cole, javi. Avoid nephrotoxic agents. 15. DVT prophylaxis. Eliquis. 16. GI prophylaxis. Protonix. Patient will be admitted to the hospital for a minimum of 2 night stay. Discharge plan: Return to [facility] under the care of Dr. Cardenas. Impression and plan of care have been directed as dictated by the signing physician. Isamar Clinton nurse practitioner acting as scribe for signing physician.
[2018-10-06 16:51] LABS: Glucose,Whole Blood 120 mg/dL (75-99)
[2018-10-06] MEDS: SODIUM CHLORIDE 0.9% 1,000 ML IV SCH (16:54)
[2018-10-06] MEDS: FERROUS SULFATE 325 MG TAB PO SCH (17:11)
[2018-10-06] MEDS: metFORMIN 500 MG TAB PO SCH (17:11)
[2018-10-06 20:54] LABS: Glucose,Whole Blood 117 mg/dL (75-99)
[2018-10-06] MEDS ORDERED: LORATADINE 10 MG TAB PO SCH (21:00)
[2018-10-06] MEDS ORDERED: NON-FORMULARY DRUG (Glucerna Shake 1 CAN) PO SCH (21:00)
[2018-10-06] MEDS: LATANOPROST 0.005% OPHTH DROPS 2.5 ML BTL BOTH EYES SCH (21:06)
[2018-10-06] MEDS: ATORVASTATIN 80 MG TAB PO SCH (21:06)
[2018-10-06] MEDS: LACTOBACILLUS ACIDOPH & BULGAR 1 EACH PACKET PO SCH (21:07)
[2018-10-07 06:13] LABS: Glucose,Whole Blood 111 mg/dL (75-99)
[2018-10-07] MEDS: INSULIN ASPART (NovoLOG) 100 UNIT/ML VIAL SQ SCH ×3 (06:21→17:58)
[2018-10-07] MEDS: MIDODRINE 5 MG TAB PO SCH ×3 (06:28→17:57)
[2018-10-07] MEDS: PANTOPRAZOLE 40 MG TABLET PO SCH (06:29)
[2018-10-07] MEDS ORDERED: LEVOTHYROXINE 50 MCG TAB PO SCH (06:30)
[2018-10-07] MEDS: metFORMIN 500 MG TAB PO SCH ×2 (08:29→17:57)
[2018-10-07] MEDS: METOPROLOL TARTRATE 12.5 MG TAB PO SCH (08:29)
[2018-10-07] MEDS: ASPIRIN 81 MG PO SCH (08:29)
[2018-10-07] MEDS: MAGNESIUM OXIDE 400 MG TAB PO SCH (08:29)
[2018-10-07] MEDS: APIXABAN 2.5 MG TABLET PO SCH ×2 (08:29→17:57)
[2018-10-07] MEDS: FERROUS SULFATE 325 MG TAB PO SCH ×2 (08:29→17:57)
[2018-10-07] MEDS: LACTOBACILLUS ACIDOPH & BULGAR 1 EACH PACKET PO SCH (08:29)
[2018-10-07 08:47] VITALS: RESP 16
[2018-10-07] MEDS ORDERED: DOCUSATE 100 MG CAP PO SCH (09:00)
[2018-10-07] MEDS ORDERED: CHOLECALCIFEROL 1,000 UNIT TAB PO SCH (09:00)
[2018-10-07] MEDS ORDERED: MULTIVITAMINS, THERA 1 EACH TAB PO SCH (09:00)
--- NOTE | 2018-10-07 10:53 | P.DS ---
Providers Date of admission: 10/05/18 16:53 Expected date of discharge: 10/07/18 Attending physician: Diana Rivera Consults: 10/05/18 15:58 Consult Physician Routine Consulting Provider: Andre Miller Consult Reason/Comments: bradycardia Do you want consulting provider notified?: Yes Primary care physician: Kitty Cardenas [facility] Course: This is an 88-year-old female patient of Dr. Cardenas and Dr. 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 he patient developed a low heart rate in the 30s and was instructed to come in the hospital. Yesterday, patient was transferred to the [facility] for a Ferumoxytol infusion but once patient arrived, she was found to have a heart rate in the 30s. [facility] was contacted and the night that she had ever had a low heart rate like this in the past. Dr. Cardenas was contacted and patient was transferred then to the ER. Patient is pleasantly confused and not reliable source of history. Patient presented to [facility] emergency center for evaluation. Her heart rate was in the 40s, afebrile, blood pressure 123/63, pulse ox 96% on room air. Chest x-ray showed interstitial changes with bilateral consolidation small effusions correlate for heart failure. Lab work revealed hemoglobin 10.6, BUN 38 creatinine 1.23, blood sugar 143. Patient was provided 1 dose of atropine 0.5 mg, glucagon 1 mg IV push and post 500 ML's IV fluids while in the emergency center and has been admitted to the cardiac stepdo wn unit with cardiology consult. 10/07: TSH came back at 9.4-0 and patient started on levothyroxine 50 g daily. Patient denies any chest pain, shortness of breath, palpitations, lightheadedness or dizziness. Patient is asking again when she is going to be discharged. She did have low heart rate during the night and currently running at 45. Patient has been cleared for discharge from cardiology with follow-up with Dr. Interiano in the office. Amiodarone 2 be held. Patient will be discharged back to [facility] today in stable condition. Discharge diagnoses: 1. Sinus bradycardia. 2. Paroxysmal atrial fibrillation. 3. Hypertension. 4. Hyperlipidemia. 5. Hypothyroidism. 6. Chronic systolic and diastolic heart failure. 7. Valvular heart disease with severe aortic stenosis and mild mitral regurgitation. 8. Severe pulmonary hypertension. 9. Diabetes mellitus type 2 with diabetic neuropathy and diabetic retinopathy. 10. Gastroesophageal reflux disease. 11. Alzheimer's dementia. 12. Esophageal motility disorder from presbyesophagus. 13. Anemia of chronic disease. 14. Chronic kidney disease stage III Discharge plan: Return to [facility] under the care of Dr. Cardenas. Impression and plan of care have been directed as dictated by the signing physician. Isamar Clinton nurse practitioner acting as scribe for signing physician. Patient Condition at Discharge: Good Plan - Discharge Summary Discharge Rx Participant: No New Discharge Prescriptions: New Levothyroxine Sodium [Synthroid] 50 mcg PO DAILY@0630 tab Continue Multivitamins, Thera [Multivitamin (formulary)] 1 tab PO DAILY@0900 Docusate [Colace] 100 mg PO Q48H Cholecalciferol [Vitamin D3 (25 Mcg = 1000 Iu)] 1,000 unit PO DAILY@0900 Atorvastatin [Lipitor] 80 mg PO HS@2100 Ferrous Sulfate [Iron (65 MG Elemental)] 325 mg PO AC-BID@0900,1700 Ipratropium-Albuterol Nebulize [Duoneb 0.5 mg-3 mg/3 ml Soln] 3 ml INHALATION RT-Q2H PRN ampul.neb PRN Reason: Shortness Of Breath Or Wheezing Ipratropium-Albuterol Nebulize [Duoneb 0.5 mg-3 mg/3 ml Soln] 3 ml INHALATION RT-TID metFORMIN HCL [Metformin HCl] 500 mg PO BID@0900,1700 Melatonin 5 mg PO HS PRN PRN Reason: Insomnia Mylanta 30 ml PO Q4H PRN PRN Reason: Gi Upset Pantoprazole [Protonix] 40 mg PO DAILY@0600 Aspirin 81 mg PO DAILY chew Midodrine [ProAmatine] 10 mg PO AC-TID tab Magnesium Hydroxide [Milk of Magnesia] 2,400 mg PO DAILY PRN PRN Reason: Constipation Acetaminophen [Tylenol Arthritis] 650 mg PO Q4H PRN PRN Reason: Pain Metoprolol Tartrate [Lopressor] 12.5 mg PO BID@0900,2100 Magnesium Oxide 400 mg PO BID@0900,2100 Lactobacillus Acidophilus [Acidophilus] 1 tab PO Q12HR@0900,2100 Glucerna Shake 1 can PO BID Apixaban [Eliquis] 2.5 mg PO BID@0900,1700 Cetirizine HCl [Zyrtec] 10 mg PO HS@2100 Latanoprost Ophth [Xalatan 0.005%] 1 drop BOTH EYES HS@2100 Furosemide [Lasix] 40 mg PO DAILY@0600 guaiFENesin SYRUP 100MG/5ML [Robitussin] 200 mg PO Q4H PRN PRN Reason: Cough Discontinued Amiodarone [Cordarone] 200 mg PO Q12HR@0900,2100 Discharge Medication List Cholecalciferol [Vitamin D3 (25 Mcg = 1000 Iu)] 1,000 unit PO DAILY@0900 [History] Docusate [Colace] 100 mg PO Q48H 07/20/16 [History] Multivitamins, Thera [Multivitamin (formulary)] 1 tab PO DAILY@0900 07/20/16 [History] Atorvastatin [Lipitor] 80 mg PO HS@2100 11/19/16 [History] Ferrous Sulfate [Iron (65 MG Elemental)] 325 mg PO AC-BID@0900,1700 12/19/17 [History] Ipratropium-Albuterol Nebulize [Duoneb 0.5 mg-3 mg/3 ml Soln] 3 ml INHALATION RT-Q2H PRN ampul.neb 01/04/18 [Rx] Ipratropium-Albuterol Nebulize [Duoneb 0.5 mg-3 mg/3 ml Soln] 3 ml INHALATION RT-TID 05/02/18 [History] Melatonin 5 mg PO HS PRN 05/02/18 [History] Mylanta 30 ml PO Q4H PRN 05/02/18 [History] metFORMIN HCL [Metformin HCl] 500 mg PO BID@0900,1700 05/02/18 [History] Pantoprazole [Protonix] 40 mg PO DAILY@0600 05/07/18 [History] Aspirin 81 mg PO DAILY chew 05/10/18 [Rx] Midodrine [ProAmatine] 10 mg PO AC-TID tab 05/21/18 [Rx] Acetaminophen [Tylenol Arthritis] 650 mg PO Q4H PRN 10/05/18 [History] Apixaban [Eliquis] 2.5 mg PO BID@0900,1700 10/05/18 [History] Cetirizine HCl [Zyrtec] 10 mg PO HS@209910/05/18 [History] Furosemide [Lasix] 40 mg PO DAILY@0600 10/05/18 [History] Glucerna Shake 1 can PO BID 10/05/18 [History] Lactobacillus Acidophilus [Acidophilus] 1 tab PO Q12HR@899,209910/05/18 [History] Latanoprost Ophth [Xalatan 0.005%] 1 drop BOTH EYES HS@209910/05/18 [History] Magnesium Hydroxide [Milk of Magnesia] 2,400 mg PO DAILY PRN 10/05/18 [History] Magnesium Oxide 400 mg PO BID@0900,209910/05/18 [History] Metoprolol Tartrate [Lopressor] 12.5 mg PO BID@0900,209910/05/18 [History] guaiFENesin SYRUP 100MG/5ML [Robitussin] 200 mg PO Q4H PRN 10/05/18 [History] Levothyroxine Sodium [Synthroid] 50 mcg PO DAILY@0630 tab 10/07/18 [Rx] Follow up Appointment(s)/Referral(s): Dusty Interiano MD [STAFF PHYSICIAN] - 2 Weeks Kitty Cardenas MD [Primary Care Provider] - 1 Week (at [facility]) Patient Instructions/Handouts: Bradycardia (DC) Activity/Diet/Wound Care/Special Instructions: regen Discharge Disposition: TRANSFER TO SNF/ECF
[2018-10-07 11:41] VITALS: BP 156/60; PULSE 45; TEMP 97.9
[2018-10-07 12:17] LABS: Glucose,Whole Blood 114 mg/dL (75-99)
--- NOTE | 2018-10-07 12:59 | P.PN ---
Subjective Progress Note Date: 10/07/18 This is a pleasant 88-year-old female who follows regularly with Dr. Interiano in the office. She has history of hypertension, diabetes, hyperlipidemia, paroxysmal atrial fibrillation, prior intracranial bleed, at which time her anticoagulation was discontinued, subsequent to that she incurred a TIA and since then has been put on Eliquis. She has also known valvular heart disease with severe aortic stenosis, patient had been advised to undergo surgery but declined. Patient comes to the hospital on this occasion because of bradycardia, according to the daughter she had been at a follow-up appointment with her physician because her hemoglobin had been running low, it was noted while she was there that her heart rate was in the 30s and she was advised to come to the hospital for further evaluation. Patient denies any dizziness or lightheadedness, no palpitations. A couple of weeks ago she did experience a fall however she just tripped and fell because her leg was weak, there is no sy mptoms of dizziness no evidence of any syncope. Overall according to the daughter the patient has been doing quite well. The daughter did mention however that she has been on amiodarone for some time, and this dose had to be decreased to 100 mg twice a day because of bradycardia in the past. She is currently on 200 mg by mouth twice a day. Her blood pressure is 126/60, heart rate 48 this morning, 95% on room air. White blood cell count 7.7, hemoglobin 10.6, platelet count 319. Sodium 136, potassium 4.9, BUN 38 and creatinine 1.2. AST 62, ALT 80, troponin 0.012. On arrival here, patient was on a prolonged 12-1/2 mg by mouth twice a day at home as well as amiodarone 200 mg by mouth twi ce a day. I did get Dr. Scott's note from the office, patient according to his note was to be on 200 mg daily of amiodarone. Currently her amiodarone and beta joaquin are on hold. At the time of my examination this morning she sitting up in the chair, feels well, no complaints. 10/07/2018 Patient was seen and examined this morning, denies any dizziness or lightheadedness. Blood pressure 132/50 with a heart rate in the mid 50s, 100% on room air. We will continue with the metoprolol 12-1/2 mg one tablet by mouth twice a day, continue to hold amiodarone. From our perspective she may be able to be discharged home, we would advise a follow-up appointment in the office with Dr. Interiano post discharge. Objective - Vital Signs Vital signs: Vital Signs Temp 97.9 F 10/07/18 11:39 Pulse 45 L 10/07/18 11:39 Resp 16 10/07/18 11:39 BP 156/60 10/07/18 11:39 Pulse Ox 100 10/07/18 11:39 Intake & Output 10/06/18 10/07/18 10/07/18 18:59 06:59 18:59 Intake Total 960 Balance 960 Weight 77.1 kg Intake: Oral 960 Other: Voiding Method Incontinent Incontinent # Voids 1 3 0 # Bowel Movements 1 - Exam PHYSICAL EXAMINATION: GENERAL: 88-year-old female in no acute distress at the time of my examination HEENT: Head is atraumatic, normocephalic. Pupils equal, round. Sclera anicteric. Conjunctiva are clear. Mucous membranes of the mouth are moist. Neck is supple. There is no elevated jugular venous pressure. No carotid bruit is heard. HEART EXAMINATION: Heart S1 S2 1 systolic ejection murmur is heard CHEST EXAMINATION: Lungs are clear to auscultation and precussion. No chest wall tenderness is noted on palpation or with deep breathing. ABDOMEN: Soft, nontender. Bowel sounds are heard. No organomegaly noted. EXTREMITIES: 2+ peripheral pulses with no evidence of peripheral edema and no calf tenderness noted. NEUROLOGIC patient is awake, alert and oriented 2 . . - Labs CBC & Chem 7: 10/05/18 15:44 10/05/18 15:44 Labs: Abnormal Lab Results - Last 24 Hours (Table) 10/06/18 10/06/18 10/07/18 Range/Units 16:43 20:53 06:11 POC Glucose (mg/dL) 120 H 117 H 111 H (75-99) mg/dL 10/07/18 Range/Units 11:47 POC Glucose (mg/dL) 114 H (75-99) mg/dL Assessment and Plan Plan: Assessment and plan #1 sinus bradycardia with a heart rate of 45 on arrival here #2 paroxysmal atrial fibrillation #3 severe aortic stenosis #4 hypertension #5 diabetes #6 hyperlipidemia #7 mild dementia #8 mildly elevated AST and ALT Plan At this point in time, we will continue to hold the patient's amiodarone, continue beta joaquin 12-1/2 mg by mouth twice a day. Okay for discharge from cardiology's perspective, follow-up appointment with Dr. Interiano in the office post discharge. DNP note has been reviewed, I agree with a documented findings and plan of care. Patient was seen and examined.
[2018-10-07 17:01] LABS: Glucose,Whole Blood 165 mg/dL (75-99)
[2018-10-07] MEDS: SODIUM CHLORIDE 0.9% 1,000 ML IV SCH (17:58)
[2018-10-07 17:59] LABS: Hemoglobin A1C 6.7 % (4.0-6.0)
== END 2018-10-07 18:52 | DRG 309 ==
LOC: EC 15:00 → 3SCARD 16:53
PROVIDERS: ADMIT Family Medicine; ATTEND Family Medicine
DX: R00.1 Bradycardia, unspecified (principal); I69.354 Hemiplegia and hemiparesis following cerebral infarction affecting left non-dominant side; I13.0 Hypertensive heart and chronic kidney disease with heart failure and stage 1 through stage 4 chronic kidney disease, or unspecified chronic kidney disease; I50.42 Chronic combined systolic (congestive) and diastolic (congestive) heart failure; I25.10 Atherosclerotic heart disease of native coronary artery without angina pectoris; E55.9 Vitamin D deficiency, unspecified; E11.40 Type 2 diabetes mellitus with diabetic neuropathy, unspecified; E11.319 Type 2 diabetes mellitus with unspecified diabetic retinopathy without macular edema; K21.9 Gastro-esophageal reflux disease without esophagitis; E11.22 Type 2 diabetes mellitus with diabetic chronic kidney disease; N18.3 Chronic kidney disease, stage 3 (moderate); G30.9 Alzheimer's disease, unspecified; D63.8 Anemia in other chronic diseases classified elsewhere; E03.9 Hypothyroidism, unspecified; E78.5 Hyperlipidemia, unspecified; F02.80 Dementia in other diseases classified elsewhere, unspecified severity, without behavioral disturbance, psychotic disturbance, mood disturbance, and anxiety; H91.90 Unspecified hearing loss, unspecified ear; I08.0 Rheumatic disorders of both mitral and aortic valves; I27.20 Pulmonary hypertension, unspecified; I44.0 Atrioventricular block, first degree; I48.0 Paroxysmal atrial fibrillation; K22.4 Dyskinesia of esophagus; K22.8 Other specified diseases of esophagus; Z96.1 Presence of intraocular lens; E66.9 Obesity, unspecified; Z68.27 Body mass index [BMI] 27.0-27.9, adult; Z79.899 Other long term (current) drug therapy; Z79.01 Long term (current) use of anticoagulants; Z79.82 Long term (current) use of aspirin; Z88.2 Allergy status to sulfonamides; Z88.7 Allergy status to serum and vaccine; Z91.040 Latex allergy status; I25.2 Old myocardial infarction; Z95.5 Presence of coronary angioplasty implant and graft; Z98.42 Cataract extraction status, left eye; Z98.41 Cataract extraction status, right eye; Z90.49 Acquired absence of other specified parts of digestive tract; Z79.84 Long term (current) use of oral hypoglycemic drugs; Z83.3 Family history of diabetes mellitus; Z90.710 Acquired absence of both cervix and uterus
CPT/HCPCS: 36415; 71045; 80053; 83036; 83735; 84443; 84484; 85025; 85610; 85730; 93005; 96361; 96374; 96375; 99285

== ENCOUNTER → 2018-10-13 | Outpatient (CLI) | payer MEDICARE, BC, OTHER ==
--- NOTE | 2018-10-14 06:43 | US ---
EXAMINATION TYPE: US kidneys/renal and bladder DATE OF EXAM: 10/13/2018 COMPARISON: CT 12/21/2017 CLINICAL HISTORY: N18.3 CKD. EXAM MEASUREMENTS: Right Kidney: 8.9 x 4.8 x 4.9 cm Left Kidney: 9.0 x 5.1 x 4.1 cm Right Kidney: No hydronephrosis or masses seen Left Kidney: Very limited and difficult visualization due to position of kidney and overlying bowel g as Bladder: wnl Bilateral Jets seen: yes There is no evidence for hydronephrosis at this point in time. Poor visualization of left kidney note d on images saved. Bladder is satisfactorily distended with visualization of bilateral distal ureter jets. IMPRESSION: Suboptimal evaluation of left kidney. No hydronephrosis is evident bilaterally.
== END | disposition home or self-care (01) ==
LOC: RADUSWWP 15:33
PROVIDERS: ATTEND Internal Medicine Nephrology
DX: N18.3 Chronic kidney disease, stage 3 (moderate) (principal)
CPT/HCPCS: 76770